=== PATIENT | female | born 1955 | race Caucasian/White ===

== ENCOUNTER → 2016-12-30 | Outpatient (CLI) | payer OTHER ==
[~2016-12-30] MED LIST: ASPCH81X PO; BND25 PO; FLUO20CA35 PO; GLCPUNK PO; INSULIN PUMP; LANS30CA41 PO; LSNUNK PO; PRM/625 PO; SYN125 PO; ZCRUNK PO
[2016-12-30 14:45] LABS: URINE APPEARANCE CLEAR (CLEAR); URINE BILIRUBIN NEG (NEG); URINE COLOR YELLOW; URINE NITRITE NEG (NEG); UROBILINOGEN NEG (NEG); ZZUR CULT IF INDIC CLEAN CATCH NO
[2016-12-30 15:00] LABS: MANUAL MICROSCOPIC REQUIRED? NO; REVIEW REQ? NO
== END | disposition home or self-care (01) ==
LOC: C.LAB1850 12:56
PROVIDERS: ATTEND Nurse Practitioner Family
DX: R30.0 Dysuria (principal)

== ENCOUNTER → 2017-02-27 | Outpatient (CLI) | payer OTHER ==
[2017-02-27 13:12] LABS: ESTIMATED AVERAGE GLUCOSE 183 mg/dl; HA1C FLAG Normal (Normal)
[2017-02-27 13:23] LABS: CHOLESTEROL/HDL RATIO 2.3; THYROID STIMULATING HORMONE 0.855 uIu/ml (0.300-4.500)
[2017-02-27 13:26] LABS: BASO % 0.5 %; BASO ABS # 0.06 K/uL (0-0.2); COMPLETE YES; EOS % 2.4 %; HEMATOCRIT 38.4 % (37-47); IG% 0.4 %; LYMPH % 27.1 %; LYMPH ABS # 2.99 K/uL (1.2-3.4); MEAN CELL VOLUME 91.2 fL (80-100); MEAN CORPUSCULAR HEMOGLOBIN 29.2 pg (25-34); MEAN PLATELET VOLUME 11.1 fL (7.4-10.4); MONO % 7.5 %; NEUT % 62.1 %; PLATELET COUNT 459 K/uL (130-400); RED BLOOD COUNT 4.21 M/uL (4.2-5.4); WHITE BLOOD COUNT 11.03 K/uL (4.8-10.8)
[2017-02-27 15:22] LABS: RATIO 4.2 mcg/mg (0-30.0)
== END | disposition home or self-care (01) ==
LOC: C.LAB1850 10:30
PROVIDERS: ATTEND Nurse Practitioner Family
DX: D72.829 Elevated white blood cell count, unspecified (principal); E10.9 Type 1 diabetes mellitus without complications

== ENCOUNTER 2022-01-21 19:35 | Inpatient (IN) ==
[2022-01-21] MEDS ORDERED: SODIUM CHLORIDE 0.9% 1000ML 1,000 ML IV ONE ×5 (19:39→22:22)
[2022-01-21 20:02] LABS: Hematocrit (blood only) 50.2 % (37-47); Hemoglobin 15.9 g/dL (12.0-16.0); Mean Corpuscular Hemoglobin 30.6 pg (25-34); Mean Corpuscular Hgb Conc 31.7 g/dL (32-36); Mean Corpuscular Volume 96.5 fL (80-100); Mean Platelet Volume 11.7 fL (7.4-10.4); Platelet Count 407 K/uL (130-400); RDW Coefficient of Variation 14.6 % (11.5-14.5); RDW Standard Deviation 51.5 fL (36.4-46.3); White Blood Count 25.91 K/uL (4.8-10.8)
--- NOTE | 2022-01-21 20:02 | Emergency Department Note ---
Impression & Plan DKA (diabetic ketoacidosis), Headache, Acute hyperkalemia, JENNY (acute kidney injury) ED Provider Note NAME: KENZIE BAUM AGE: 66 SEX: F : 1955 ARRIVES VIA: Ambulance INFORMANT: Patient, EMS ED PROVIDER(S): Demetris Shafer DO CHIEF COMPLAINT: Generalized illness HPI: The patient is a 66-year-old female who presented to the emergency department for an evaluation of generalized illness. The patient called 911 because she was not feeling well. Upon arrival the patient was found to be tachypneic and extremis. The patient was found to have an elevated blood pressure. She was complaining of a headache which she states started earlier in the day. She denies having any trauma or fever. She denies having any chest p ain. She denies having any abdominal pain but has had episodes of nausea. She denies having any swelling in her lower extremities. She states that she has been compliant with her outpatient medications but states her blood sugar has been elevated. The prehospital personnel also noted the patient's blood sugar was very elevated. She complains of headache which is very severe. She did not take any medications for the headache. She states she has noticed urinary frequency. She denies having any back pain. ROS: See above HPI for pertinent positives & negatives. A total of 10 systems reviewed and were otherwise negative. PAST MEDICAL HISTORY: See Below PAST SURGICAL HISTORY: See Below FAMILY HISTORY: See Below SOCIAL HISTORY: See Below HOME MEDICATIONS: See Below ALLERGIES: See Below VITALS: See Below PHYSICAL EXAMINATION: GENERAL: The patient is awake and alert. She is somewhat anxious appearing. EYES: The conjunctivae are clear. The pupils are round and reactive. EARS, NOSE, MOUTH AND THROAT: The nose is without any evidence of any deformity. Mucous membranes are dry. NECK: The neck is nontender and supple. RESPIRATORY: Tachypnea was noted with conversational dyspnea. There were no abnormal lung sounds noted. There is no rales rhonchi or wheezing. CARDIOVASCULAR: Tachycardic rate with regular rhythm was noted. There is no definite murmur. GASTROINTESTINAL: The abdomen is soft. Abdomen is nontender. MUSCULOSKELETAL/EXTREMITIES: There is no evidence of gross deformity full range of motion is noted in the hips and shoulders. SKIN: There is no obvious evidence of any rash. There are no petechiae, pallor or cyanosis noted. NEUROLOGIC: Patient is awake alert and oriented x3 strength is symmetric patellar reflexes are 2+ bilaterally MEDICAL DECISION MAKING: The patient is a 66-year-old female who presented to the emergency department for an evaluation of difficulty breathing. The patient was found to be in DKA. I discussed the patient's laboratory and radiographic studies with her. [facility] The patient was treated with multiple IV fluid boluses as well as IV insulin using the DKA protocol. The patient also requested medication for headache. She was not found to have any acute abnormality on CT of the head. At this time the patient seems to be improving clinically. She would likely require further management in the ICU. She was [facility] in [facility] Patient was also treated with empiric antibiotics. Triage Nursing notes reviewed. Prior medical records reviewed Vital Signs: reviewed and remarkable for elevated blood pressure tachycardia and tachypnea. Differential diagnosis: Infection, dehydration, metabolic abnormality, hypo/hyperglycemia, electrolyte disturbance, anemia, hypoxia, cardiac sources, intracerebral event, toxicologic, neurologic, as well as other pathologies. ER treatment provided: See below Diagnostics interpreted by me: ECG: EKG was obtained in the emergency department. My interpretation is sinus tachycardia at 134 bpm. No PVCs were noted. Poor wave progression was noted. Inferior Q waves were also noted. This was compared to a tracing from July 30, 2000 Alexis. There is an increase in the rate however no other specific changes were noted. Cardiac Monitoring: An order was placed for continuous cardiac monitoring. The monitor shows a rate of with 132 bpm with sinus rhythm. Laboratory studies: As stated above and show below. Imaging studies: See below Consultation(s): I discussed this case with Dr. Blanca is [facility] ED COURSE: Procedures: none Critical Care: I have personally spent greater than 45 minutes of critical care time in the direct management of this patient. This includes bedside care, interpretation of diagnostic studies, and testing, discussion with consultants, patient, and family members, and other required patient management activities. This 45 minutes is in excess of all separately billable procedures. Past Med/Surg History Surgical History History of cholecystectomy History of hysterectomy History of shoulder surgery History of tonsillectomy Family History Grandmother (Maternal) Diabetes Mother Hypertension Heart disease Grandmother (Paternal) Diabetes Social History Smoking Status: Unknown if ever smoked Hx Alcohol Use: No Preferred Language: Spanish Allergies Allergies Allergy/AdvReac Type Severity Reaction Status Date / Time acetaminophen Allergy Severe Difficulty Verified 01/21/22 21:10 Breathing dextromethorphan Allergy Severe Difficulty Verified 01/21/22 21:10 Breathing doxylamine Allergy Severe Difficulty Verified 01/21/22 21:10 Breathing pseudoephedrine Allergy Severe Difficulty Verified 01/21/22 21:10 Breathing glyburide Allergy Intermediate RASH Verified 01/21/22 21:10 tetanus toxoid, adsorbed Allergy Intermediate painful Verified 01/21/22 21:10 joints Ethanol Allergy Severe Difficulty Uncoded 01/21/22 21:10 Breathing Home Meds Home Medications Medication Instructions Recorded Confirmed aspirin 81 mg tablet,delayed 81 mg PO DAILY 01/29/21 01/21/22 release (Adult Low Dose Aspirin) diphenhydramine HCl 25 mg capsule 25 mg PO HS PRN 01/29/21 01/21/22 fluocinonide 0.05 % topical 1 applic TOPICAL DAILY ml 01/29/21 01/21/22 solution fluoxetine 40 mg capsule 40 mg PO DAILY 01/29/21 01/21/22 hydrochlorothiazide 12.5 mg tablet 12.5 mg PO DAILY 01/29/21 01/21/22 levothyroxine 125 mcg tablet 125 mcg PO DAILY 01/29/21 01/21/22 lisinopril 5 mg tablet 5 mg PO DAILY 01/29/21 01/21/22 lansoprazole 30 mg capsule,delayed 30 mg PO DAILY PRN 06/03/21 01/21/22 release zolpidem 10 mg tablet 10 mg PO HS tab 06/03/21 01/21/22 insulin aspart U-100 100 unit/mL 0 unit CONTINUOUS SUBCUTANEOUS 01/21/22 01/21/22 subcutaneous solution (Novolog INFUSION DAILY U-100 Insulin aspart) Previous Rx's Medication Instructions Recorded simvastatin 20 mg tablet 20 mg PO DAILY #90 tab 03/22/21 Dexcom G6 Sludge Control Attendant (blood-glucose #9 ea NS 03/27/21 meter,continuous) Dexcom G6 Transmitter #1 ea NS 03/27/21 (blood-glucose transmitter) OneTouch Ultra Test (blood sugar #400 ea NS 07/10/21 diagnostic) Results & Data (ED) Vital Signs Vital Signs - 24 hr 01/21/22 19:54 01/21/22 20:04 01/21/22 20:09 Pulse Rate 136 H 135 H Pulse Rate from SpO2 Sensor 135 H Pulse Rhythm Regular Respiratory Rate 32 H 27 H Respiratory Effort / Characteristics Accessory Muscle Use Labored Short of Breath Accessory Muscle Use Labored Short of Breath Respiratory Depth Shallow Shallow Respiratory Pattern Rapid/Shallow Tachypnea Rapid/Shallow Tachypnea Blood Pressure 198/109 H 180/107 H Blood Pressure Mean 138 131 Pulse Oximetry 99 99 Oxygen Delivery Method Room Air Nasal Cannula Room Air Room Air 01/21/22 20:31 01/21/22 21:00 01/21/22 21:09 Pulse Rate 135 H 132 H Pulse Rate from SpO2 Sensor 133 H 133 H Pulse Rhythm Respiratory Rate 27 H 24 32 H Respiratory Effort / Characteristics Accessory Muscle Use Short of Breath Respiratory Depth Respiratory Pattern Blood Pressure 195/132 H 154/81 H Blood Pressure Mean 153 105 Pulse Oximetry 96 96 98 Oxygen Delivery Method Room Air Room Air Room Air 01/21/22 21:39 Pulse Rate Pulse Rate from SpO2 Sensor Pulse Rhythm Respiratory Rate 36 H Respiratory Effort / Characteristics Accessory Muscle Use Labored Short of Breath Respiratory Depth Respiratory Pattern Blood Pressure Blood Pressure Mean Pulse Oximetry 97 Oxygen Delivery Method Room Air Home Medications Current Medication List: was personally reviewed by me Laboratory Data Attestation: I reviewed the patient's lab results. Result diagrams: 01/21/22 19:48 01/21/22 19:48 Lab Results 01/21/22 01/21/22 01/21/22 Range/Units 19:39 19:42 19:48 WBC (4.8-10.8) K/uL RBC (4.2-5.4) M/uL Hgb (12.0-16.0) g/dL Hct (37-47) % MCV (80-100) fL MCH (25-34) pg MCHC (32-36) g/dL RDW Std Deviation (36.4-46.3) fL RDW Coeff of Rossi (11.5-14.5) % Plt Count (130-400) K/uL MPV (7.4-10.4) fL Immature Gran % (Auto) % Neut % (Auto) % Lymph % (Auto) % [place] % (Auto) % Eos % (Auto) % Baso % (Auto) % Neut # (Auto) (1.4-6.5) K/uL Lymph # (Auto) (1.2-3.4) K/uL [place] # (Auto) (0.11-0.59) K/uL Eos # (Auto) (0-0.5) K/uL Baso # (Auto) (0-0.2) K/uL Immature Gran # (Auto) (0.00-0.02) K/uL Echinocytes ESR (0-30) mm/hr PT (9.0-12.0) Seconds INR (0.9-1.1) APTT (21.0-31.0) Seconds PTT Ratio ABG pH (7.35-7.45) ABG pCO2 (35-46) mmHg ABG pO2 (80-95) mmHg ABG HCO3 (19-24) mmol/L ABG O2 Saturation (90-95) % ABG Base Excess (-9-1.8) mEq/L Saravanan Test (Pos) VBG pH VBG pCO2 VBG pO2 VBG HCO3 VBG O2 Saturation VBG Base Excess Barometric Pressure Oxygen Given Sodium (136-145) mmol/L Potassium (3.5-5.1) mmol/L Chloride (98-107) mmol/L Carbon Dioxide (21-32) mmol/L Anion Gap (3-11) BUN (6-23) mg/dl Creatinine (0.6-1.2) mg/dl Est Cr Clr Drug Dosing ml/min Est GFR ( Amer) ml/min Est GFR (Non-Af Amer) ml/min BUN/Creatinine Ratio (10-20) Glucose (70-99(Fasting)) mg/dl POC Glucose > 600 H* (70-99) mg/dl Osmolality 331 H (280-300) mOsm/kg Lactate (0.4-2.0) mmol/L Calcium (8.5-10.1) mg/dl Magnesium (1.7-2.4) mg/dl Total Bilirubin (0.2-1.0) mg/dl AST (13-39) U/L ALT (7-52) U/L Alkaline Phosphatase (34-104) U/L Troponin I High Sens 15.8 H (0-14) pg/ml C-Reactive Protein (0-0.5) mg/dl Total Protein (6.0-8.3) gm/dl Albumin (3.4-5.0) gm/dl Globulin (2.5-4.0) gm/dl Albumin/Globulin Ratio (0.9-2) Procalcitonin (0-0.5) ng/ml TSH (0.300-4.500) uIu/ml Urine Color Urine Appearance (Clear) Urine pH (4.5-7.5) Ur Specific [place] (1.000-1.030) Urine Protein (Negative) Urine Glucose (UA) (Negative) Urine Ketones (Negative) Urine Blood (Negative) Urine Nitrite (Negative) Urine Bilirubin (Negative) Urine Urobilinogen (Negative) Ur Leukocyte Esterase (Negative) Urine WBC (Auto) (0-5) /hpf Urine RBC (Auto) (0-4) /hpf U Hyaline Cast (Auto) (0-5) /lpf U Epithel Cells (Auto) (0-5) /lpf Urine Bacteria (Auto) (Negative) 01/21/22 01/21/22 01/21/22 Range/Units 19:48 19:48 19:48 WBC 25.91 H (4.8-10.8) K/uL RBC 5.20 (4.2-5.4) M/uL Hgb 15.9 (12.0-16.0) g/dL Hct 50.2 H (37-47) % MCV 96.5 (80-100) fL MCH 30.6 (25-34) pg MCHC 31.7 L (32-36) g/dL RDW Std Deviation 51.5 H (36.4-46.3) fL RDW Coeff of Rossi 14.6 H (11.5-14.5) % Plt Count 407 H (130-400) K/uL MPV 11.7 H (7.4-10.4) fL Immature Gran % (Auto) 1.7 % Neut % (Auto) 80.1 % Lymph % (Auto) 10.7 % [place]corn % (Auto) 7.3 % Eos % (Auto) 0.0 % Baso % (Auto) 0.2 % Neut # (Auto) 20.77 H (1.4-6.5) K/uL Lymph # (Auto) 2.77 (1.2-3.4) K/uL [place] # (Auto) 1.88 H (0.11-0.59) K/uL Eos # (Auto) 0.00 (0-0.5) K/uL Baso # (Auto) 0.04 (0-0.2) K/uL Immature Gran # (Auto) 0.45 H (0.00-0.02) K/uL Echinocytes 1+ ESR 54 H (0-30) mm/hr PT 11.9 (9.0-12.0) Seconds INR 1.1 (0.9-1.1) APTT 36.8 H (21.0-31.0) Seconds PTT Ratio 1.3 ABG pH (7.35-7.45) ABG pCO2 (35-46) mmHg ABG pO2 (80-95) mmHg ABG HCO3 (19-24) mmol/L ABG O2 Saturation (90-95) % ABG Base Excess (-9-1.8) mEq/L Saravanan Test (Pos) VBG pH VBG pCO2 VBG pO2 VBG HCO3 VBG O2 Saturation VBG Base Excess Barometric Pressure Oxygen Given Sodium (136-145) mmol/L Potassium (3.5-5.1) mmol/L Chloride (98-107) mmol/L Carbon Dioxide (21-32) mmol/L Anion Gap (3-11) BUN (6-23) mg/dl Creatinine (0.6-1.2) mg/dl Est Cr Clr Drug Dosing ml/min Est GFR ( Amer) ml/min Est GFR (Non-Af Amer) ml/min BUN/Creatinine Ratio (10-20) Glucose (70-99(Fasting)) mg/dl POC Glucose (70-99) mg/dl Osmolality (280-300) mOsm/kg Lactate (0.4-2.0) mmol/L Calcium (8.5-10.1) mg/dl Magnesium (1.7-2.4) mg/dl Total Bilirubin (0.2-1.0) mg/dl AST (13-39) U/L ALT (7-52) U/L Alkaline Phosphatase (34-104) U/L Troponin I High Sens (0-14) pg/ml C-Reactive Protein (0-0.5) mg/dl Total Protein (6.0-8.3) gm/dl Albumin (3.4-5.0) gm/dl Globulin (2.5-4.0) gm/dl Albumin/Globulin Ratio (0.9-2) Procalcitonin (0-0.5) ng/ml TSH (0.300-4.500) uIu/ml Urine Color Urine Appearance (Clear) Urine pH (4.5-7.5) Ur Specific [place] (1.000-1.030) Urine Protein (Negative) Urine Glucose (UA) (Negative) Urine Ketones (Negative) Urine Blood (Negative) Urine Nitrite (Negative) Urine Bilirubin (Negative) Urine Urobilinogen (Negative) Ur Leukocyte Esterase (Negative) Urine WBC (Auto) (0-5) /hpf Urine RBC (Auto) (0-4) /hpf U Hyaline Cast (Auto) (0-5) /lpf U Epithel Cells (Auto) (0-5) /lpf Urine Bacteria (Auto) (Negative) 01/21/22 01/21/22 01/21/22 Range/Units 19:48 19:48 19:48 WBC (4.8-10.8) K/uL RBC (4.2-5.4) M/uL Hgb (12.0-16.0) g/dL Hct (37-47) % MCV (80-100) fL MCH (25-34) pg MCHC (32-36) g/dL RDW Std Deviation (36.4-46.3) fL RDW Coeff of Rossi (11.5-14.5) % Plt Count (130-400) K/uL MPV (7.4-10.4) fL Immature Gran % (Auto) % Neut % (Auto) % Lymph % (Auto) % [place] % (Auto) % Eos % (Auto) % Baso % (Auto) % Neut # (Auto) (1.4-6.5) K/uL Lymph # (Auto) (1.2-3.4) K/uL [place] # (Auto) (0.11-0.59) K/uL Eos # (Auto) (0-0.5) K/uL Baso # (Auto) (0-0.2) K/uL Immature Gran # (Auto) (0.00-0.02) K/uL Echinocytes ESR (0-30) mm/hr PT (9.0-12.0) Seconds INR (0.9-1.1) APTT (21.0-31.0) Seconds PTT Ratio ABG pH (7.35-7.45) ABG pCO2 (35-46) mmHg ABG pO2 (80-95) mmHg ABG HCO3 (19-24) mmol/L ABG O2 Saturation (90-95) % ABG Base Excess (-9-1.8) mEq/L Saravanan Test (Pos) VBG pH VBG pCO2 VBG pO2 VBG HCO3 VBG O2 Saturation VBG Base Excess Barometric Pressure Oxygen Given Sodium 123 L (136-145) mmol/L Potassium 5.5 H (3.5-5.1) mmol/L Chloride 90 L (98-107) mmol/L Carbon Dioxide 3 L* (21-32) mmol/L Anion Gap 30 H (3-11) BUN 30 H (6-23) mg/dl Creatinine 1.59 H (0.6-1.2) mg/dl Est Cr Clr Drug Dosing 39.4 ml/min Est GFR ( Amer) 38.8 ml/min Est GFR (Non-Af Amer) 33.5 ml/min BUN/Creatinine Ratio 18.9 (10-20) Glucose 704 H* (70-99(Fasting)) mg/dl POC Glucose (70-99) mg/dl Osmolality (280-300) mOsm/kg Lactate (0.4-2.0) mmol/L Calcium 9.1 (8.5-10.1) mg/dl Magnesium 2.2 (1.7-2.4) mg/dl Total Bilirubin 0.6 (0.2-1.0) mg/dl AST 11 L (13-39) U/L ALT 11 (7-52) U/L Alkaline Phosphatase 150 H (34-104) U/L Troponin I High Sens (0-14) pg/ml C-Reactive Protein 2.13 H (0-0.5) mg/dl Total Protein 8.1 (6.0-8.3) gm/dl Albumin 4.7 (3.4-5.0) gm/dl Globulin 3.4 (2.5-4.0) gm/dl Albumin/Globulin Ratio 1.4 (0.9-2) Procalcitonin 0.28 (0-0.5) ng/ml TSH 1.263 (0.300-4.500) uIu/ml Urine Color Urine Appearance (Clear) Urine pH (4.5-7.5) Ur Specific [place] (1.000-1.030) Urine Protein (Negative) Urine Glucose (UA) (Negative) Urine Ketones (Negative) Urine Blood (Negative) Urine Nitrite (Negative) Urine Bilirubin (Negative) Urine Urobilinogen (Negative) Ur Leukocyte Esterase (Negative) Urine WBC (Auto) (0-5) /hpf Urine RBC (Auto) (0-4) /hpf U Hyaline Cast (Auto) (0-5) /lpf U Epithel Cells (Auto) (0-5) /lpf Urine Bacteria (Auto) (Negative) 01/21/22 01/21/22 01/21/22 Range/Units 20:06 20:06 20:06 WBC (4.8-10.8) K/uL RBC (4.2-5.4) M/uL Hgb (12.0-16.0) g/dL Hct (37-47) % MCV (80-100) fL MCH (25-34) pg MCHC (32-36) g/dL RDW Std Deviation (36.4-46.3) fL RDW Coeff of Rossi (11.5-14.5) % Plt Count (130-400) K/uL MPV (7.4-10.4) fL Immature Gran % (Auto) % Neut % (Auto) % Lymph % (Auto) % [place] % (Auto) % Eos % (Auto) % Baso % (Auto) % Neut # (Auto) (1.4-6.5) K/uL Lymph # (Auto) (1.2-3.4) K/uL [place] # (Auto) (0.11-0.59) K/uL Eos # (Auto) (0-0.5) K/uL Baso # (Auto) (0-0.2) K/uL Immature Gran # (Auto) (0.00-0.02) K/uL Echinocytes ESR (0-30) mm/hr PT (9.0-12.0) Seconds INR (0.9-1.1) APTT (21.0-31.0) Seconds PTT Ratio ABG pH 7.05 L* (7.35-7.45) ABG pCO2 14 L (35-46) mmHg ABG pO2 123 H (80-95) mmHg ABG HCO3 4 L (19-24) mmol/L ABG O2 Saturation 97.7 H (90-95) % ABG Base Excess -24.7 L (-9-1.8) mEq/L Saravanan Test Pos (Pos) VBG pH Cancelled VBG pCO2 Cancelled VBG pO2 Cancelled VBG HCO3 Cancelled VBG O2 Saturation Cancelled VBG Base Excess Cancelled Barometric Pressure Cancelled 738.3 Oxygen Given ROOM AIR Sodium (136-145) mmol/L Potassium (3.5-5.1) mmol/L Chloride (98-107) mmol/L Carbon Dioxide (21-32) mmol/L Anion Gap (3-11) BUN (6-23) mg/dl Creatinine (0.6-1.2) mg/dl Est Cr Clr Drug Dosing ml/min Est GFR ( Amer) ml/min Est GFR (Non-Af Amer) ml/min BUN/Creatinine Ratio (10-20) Glucose (70-99(Fasting)) mg/dl POC Glucose (70-99) mg/dl Osmolality (280-300) mOsm/kg Lactate 2.4 H* (0.4-2.0) mmol/L Calcium (8.5-10.1) mg/dl Magnesium (1.7-2.4) mg/dl Total Bilirubin (0.2-1.0) mg/dl AST (13-39) U/L ALT (7-52) U/L Alkaline Phosphatase (34-104) U/L Troponin I High Sens (0-14) pg/ml C-Reactive Protein (0-0.5) mg/dl Total Protein (6.0-8.3) gm/dl Albumin (3.4-5.0) gm/dl Globulin (2.5-4.0) gm/dl Albumin/Globulin Ratio (0.9-2) Procalcitonin (0-0.5) ng/ml TSH (0.300-4.500) uIu/ml Urine Color Urine Appearance (Clear) Urine pH (4.5-7.5) Ur Specific [place] (1.000-1.030) Urine Protein (Negative) Urine Glucose (UA) (Negative) Urine Ketones (Negative) Urine Blood (Negative) Urine Nitrite (Negative) Urine Bilirubin (Negative) Urine Urobilinogen (Negative) Ur Leukocyte Esterase (Negative) Urine WBC (Auto) (0-5) /hpf Urine RBC (Auto) (0-4) /hpf U Hyaline Cast (Auto) (0-5) /lpf U Epithel Cells (Auto) (0-5) /lpf Urine Bacteria (Auto) (Negative) 01/21/22 01/21/22 01/21/22 Range/Units 20:41 21:04 21:52 WBC (4.8-10.8) K/uL RBC (4.2-5.4) M/uL Hgb (12.0-16.0) g/dL Hct (37-47) % MCV (80-100) fL MCH (25-34) pg MCHC (32-36) g/dL RDW Std Deviation (36.4-46.3) fL RDW Coeff of Rossi (11.5-14.5) % Plt Count (130-400) K/uL MPV (7.4-10.4) fL Immature Gran % (Auto) % Neut % (Auto) % Lymph % (Auto) % [place] % (Auto) % Eos % (Auto) % Baso % (Auto) % Neut # (Auto) (1.4-6.5) K/uL Lymph # (Auto) (1.2-3.4) K/uL [place] # (Auto) (0.11-0.59) K/uL Eos # (Auto) (0-0.5) K/uL Baso # (Auto) (0-0.2) K/uL Immature Gran # (Auto) (0.00-0.02) K/uL Echinocytes ESR (0-30) mm/hr PT (9.0-12.0) Seconds INR (0.9-1.1) APTT (21.0-31.0) Seconds PTT Ratio ABG pH (7.35-7.45) ABG pCO2 (35-46) mmHg ABG pO2 (80-95) mmHg ABG HCO3 (19-24) mmol/L ABG O2 Saturation (90-95) % ABG Base Excess (-9-1.8) mEq/L Saravanan Test (Pos) VBG pH VBG pCO2 VBG pO2 VBG HCO3 VBG O2 Saturation VBG Base Excess Barometric Pressure Oxygen Given Sodium (136-145) mmol/L Potassium (3.5-5.1) mmol/L Chloride (98-107) mmol/L Carbon Dioxide (21-32) mmol/L Anion Gap (3-11) BUN (6-23) mg/dl Creatinine (0.6-1.2) mg/dl Est Cr Clr Drug Dosing ml/min Est GFR ( Amer) ml/min Est GFR (Non-Af Amer) ml/min BUN/Creatinine Ratio (10-20) Glucose (70-99(Fasting)) mg/dl POC Glucose > 600 H* > 600 H* (70-99) mg/dl Osmolality (280-300) mOsm/kg Lactate (0.4-2.0) mmol/L Calcium (8.5-10.1) mg/dl Magnesium (1.7-2.4) mg/dl Total Bilirubin (0.2-1.0) mg/dl AST (13-39) U/L ALT (7-52) U/L Alkaline Phosphatase (34-104) U/L Troponin I High Sens (0-14) pg/ml C-Reactive Protein (0-0.5) mg/dl Total Protein (6.0-8.3) gm/dl Albumin (3.4-5.0) gm/dl Globulin (2.5-4.0) gm/dl Albumin/Globulin Ratio (0.9-2) Procalcitonin (0-0.5) ng/ml TSH (0.300-4.500) uIu/ml Urine Color Yellow Urine Appearance Clear (Clear) Urine pH 5.0 (4.5-7.5) Ur Specific [place] 1.024 (1.000-1.030) Urine Protein 1+ H (Negative) Urine Glucose (UA) 3+ H (Negative) Urine Ketones 4+ H (Negative) Urine Blood 2+ H (Negative) Urine Nitrite Negative (Negative) Urine Bilirubin Negative (Negative) Urine Urobilinogen Negative (Negative) Ur Leukocyte Esterase Negative (Negative) Urine WBC (Auto) 0 (0-5) /hpf Urine RBC (Auto) 0-4 (0-4) /hpf U Hyaline Cast (Auto) 1-5 (0-5) /lpf U Epithel Cells (Auto) 5-10 H (0-5) /lpf Urine Bacteria (Auto) Negative (Negative) Administered Medications Insulin Human Regular 250 (units/ Sodium Chloride) 250 mls @ 10 mls/hr IV .Q24H [facility]; Protocol Stop: 02/20/22 20:29 Last Admin: 01/21/22 21:28 Dose: 10 units/hr, 10 mls/hr Documented by: [id number] Cosigned by: [id number] Discontinued Medications Amlodipine Besylate (Amlodipine Besylate 5 Mg Tab) 2.5 mg PO NOW ONE Stop: 01/21/22 21:21 Last Admin: 01/21/22 22:20 Dose: 2.5 mg Documented by: [id number] Fentanyl Citrate (Fentanyl Citrate 100 Mcg/2 Ml Vial) 100 mcg IV NOW STA Stop: 01/21/22 20:26 Last Admin: 01/21/22 20:31 Dose: 100 mcg Documented by: [id number] Sodium Chloride (Nss 1000ml) 1,000 mls @ 999 mls/hr IV .Q1H1M ONE Stop: 01/21/22 20:39 Last Infusion: 01/21/22 21:03 Dose: 0 mls/hr Documented by: [id number] Admin: 01/21/22 20:01 Dose: 999 mls/hr Documented by: [id number] Sodium Chloride (Nss 1000ml) 1,000 mls @ 999 mls/hr IV .Q1H1M ONE Stop: 01/21/22 20:42 Last Infusion: 01/21/22 21:03 Dose: 0 mls/hr Documented by: [id number] Admin: 01/21/22 20:01 Dose: 999 mls/hr Documented by: [id number] Piperacillin Sod/Tazobactam Sod (Zosyn) 4.5 gm in 120 mls @ 240 mls/hr IV NOW ONE Stop: 01/21/22 20:57 Last Admin: 01/21/22 21:29 Dose: 240 mls/hr Documented by: [id number] Sodium Chloride (Nss 1000ml) 1,000 mls @ 200 mls/hr IV .Q5H ONE Stop: 01/22/22 02:14 Last Admin: 01/21/22 22:30 Dose: Not Given Documented by: [id number] Sodium Chloride (Nss 1000ml) 1,000 mls @ 999 mls/hr IV .Q1H1M ONE Stop: 01/21/22 22:17 Last Admin: 01/21/22 22:21 Dose: 999 mls/hr Documented by: [id number] Insulin Human Regular (Novolin-R Bolus From Bag) 10 units IV 2100 ONE Stop: 01/21/22 21:01 Last Admin: 01/21/22 21:29 Dose: 10 units Documented by: [id number] Cosigned by: [id number] Labetalol HCl (Labetalol Hcl Iv 5 Mg/Ml 20ml) 10 mg IV NOW STA Stop: 01/21/22 21:08 Last Admin: 01/21/22 22:30 Dose: Not Given Documented by: [id number] Metoprolol Tartrate (Metoprolol Tartrate 1 Mg/Ml Vial) 2.5 mg IV NOW STA Stop: 01/21/22 21:22 Last Admin: 01/21/22 21:45 Dose: 2.5 mg Documented by: [id number] Miscellaneous (Stat Insulin Drip) 1 ea N/A NOW STA Stop: 01/21/22 20:29 Last Admin: 01/21/22 21:39 Dose: Not Given Documented by: [id number] Ondansetron HCl (Ondansetron Inj 2 Mg/Ml 2 Ml Vial) 4 mg IV NOW STA Stop: 01/21/22 20:26 Last Admin: 01/21/22 20:31 Dose: 4 mg Documented by: [id number] Sodium Bicarbonate (Sodium Bicarb 8.4% Inj 50 Meq/50 Ml Syr) 50 meq IV NOW STA Stop: 01/21/22 21:19 Last Admin: 01/21/22 21:45 Dose: 50 meq Documented by: [id number] Imaging Data Radiologist's Impression: Chest X-Ray 01/21/22 19:39 XR chest 1V portable HISTORY: 66 years-old Female SEPSIS acute sepsis COMPARISON: CT abdomen and pelvis 04/28/2012 TECHNIQUE: Portable AP view of the chest FINDINGS: Cardiomediastinal and hilar silhouettes are within normal limits. No pneumothorax, pleural effusion, airspace consolidation or overt pulmonary edema. Bones of the chest appear grossly intact. IMPRESSION: No acute process. ACT 112: Negative or not required by law. The above report was generated using voice recognition software. It may contain grammatical, syntax or spelling errors. Electronically signed by: Joaquin Arthur M.D. 01/21/2022 8:[address] 01/21/22 20:25 CT head/brain wo con CLINICAL HISTORY: 66 years-old Female with YANES, dka. Acute headache TECHNIQUE: Multiple axial CT images of the head were obtained without contrast. A dose lowering technique was utilized adhering to the principles of ALARA. CT DOSE: 1311.06 mGy.cm COMPARISON: None. FINDINGS: Motion degraded exam. The study was then repeated. Mild involutional changes. White matter hypodensities may reflect chronic microvascular ischemic disease. No acute intracranial hemorrhage, midline shift, intracranial mass, hydrocephalus, territorial ischemia or abnormal extra-axial collection. The calvarium is intact. The paranasal sinuses, mastoid air cells, and middle ear cavities are clear. IMPRESSION: Motion degraded exam. No acute intracranial abnormality. ACT 112: Negative or not required by law. The above report was generated using voice recognition software. It may contain grammatical, syntax or spelling errors. Electronically signed by: Joaquin Arthur M.D. 01/21/2022 9:02 PM Discharge Plan Visit Data Chief Complaint: Respiratory Distress Stated Complaint: RESPIRATORY DISTRESS/POSSIBLE DKA ED Provider: Demetris Shafer Discharge Problem: DKA (diabetic ketoacidosis), Headache, Acute hyperkalemia, JENNY (acute kidney injury) Patient Disposition: Being Evaluated by Hospitalist Forms Stand Alone Forms: [employer] Prescriptions Prescriptions: No Action (DME) Dexcom G6 Sludge Control Attendant Misc See Rx Instructions .ROUTE .MEDSUPPLY Qty: 9 RF: 4 (DME) Dexcom G6 Transmitter Device See Rx Instructions .ROUTE .MEDSUPPLY Qty: 1 RF: 3 (DME) OneTouch Ultra Test Strip See Rx Instructions .Route Qty: 400 RF: 3 simvastatin 20 mg tablet 20 mg PO DAILY Qty: 90 RF: 3 aspirin [Adult Low Dose Aspirin] 81 mg tablet,delayed release (DR/EC) 81 mg PO DAILY RF: 0 diphenhydramine HCl 25 mg capsule 25 mg PO HS PRN (Reason: Sleep) RF: 0 fluocinonide 0.05 % solution 1 applic topical DAILY RF: 0 fluoxetine 40 mg capsule 40 mg PO DAILY RF: 0 hydrochlorothiazide 12.5 mg tablet 12.5 mg PO DAILY RF: 0 levothyroxine 125 mcg tablet 125 mcg PO DAILY RF: 0 lisinopril 5 mg tablet 5 mg PO DAILY RF: 0 lansoprazole 30 mg capsule,delayed release(DR/EC) 30 mg PO DAILY PRN (Reason: Indigestion) RF: 0 zolpidem 10 mg tablet 10 mg PO HS RF: 0 insulin aspart U-100 [Novolog U-100 Insulin aspart] 100 unit/mL solution 0 unit continuous subcutaneous infusion DAILY RF: 0 Referrals Referrals: Oswaldo aSxena MD [Primary Care Provider] -
[2022-01-21 20:10] LABS: INR 1.1 (0.9-1.1); Partial Thromboplastin Ratio 1.3; Partial Thromboplastin Time 36.8 Seconds (21.0-31.0); Prothrombin Time 11.9 Seconds (9.0-12.0)
[2022-01-21 20:21] LABS: Albumin Globulin Ratio 1.4 (0.9-2); Albumin Level 4.7 gm/dl (3.4-5.0); BUN Creatinine Ratio 18.9 (10-20); Basophils # (auto) 0.04 K/uL (0-0.2); Basophils % (auto) 0.2 %; Bilirubin,Total 0.6 mg/dl (0.2-1.0); C Reactive Protein 2.13 mg/dl (0-0.5); Calcium 9.1 mg/dl (8.5-10.1); Creatinine Clr Calc Pharmacy 39.4 ml/min; Echinocytes 1+; Est GFR (African American) 38.8 ml/min; Est GFR (Non-African American) 33.5 ml/min; Globulin 3.4 gm/dl (2.5-4.0); Immature Granulocytes # (auto) 0.45 K/uL (0.00-0.02); Immature Granulocytes % (auto) 1.7 %; Lymphocytes # (auto) 2.77 K/uL (1.2-3.4); Lymphocytes % (auto) 10.7 %; Magnesium 2.2 mg/dl (1.7-2.4); Monocytes # (auto) 1.88 K/uL (0.11-0.59); Monocytes % (auto) 7.3 %; Neutrophils # (auto) 20.77 K/uL (1.4-6.5); Neutrophils % (auto) 80.1 %; Potassium 5.5 mmol/L (3.5-5.1); Total Protein 8.1 gm/dl (6.0-8.3)
[2022-01-21] MEDS ORDERED: ONDANSETRON INJ 2 MG/ML 2 ML VIAL IV STA (20:25)
[2022-01-21] MEDS ORDERED: fentaNYL citrate 100 MCG/2 ML VIAL IV STA (20:25)
[2022-01-21] MEDS ORDERED: CARBOHYDRATES FOR HYPOGLYCEMIA PO PRN ×2 (20:28→21:00)
[2022-01-21] MEDS ORDERED: DEXTROSE 50% 50 ML SYRINGE IV PRN ×2 (20:28→21:00)
[2022-01-21] MEDS ORDERED: DKA GOAL RANGE 150-250 mg/dl ONE (20:28)
[2022-01-21] MEDS ORDERED: PIPERACILL/TAZOBAC CONSULT ACTIVE PRN (20:28)
[2022-01-21] MEDS ORDERED: STAT INSULIN DRIP STA (20:28)
[2022-01-21] MEDS ORDERED: GLUCOSE 10 TABS/TUBE PO PRN ×2 (20:28→21:00)
[2022-01-21] MEDS ORDERED: PIPERACILLIN/TAZOBACTAM 4.5 GM/120 ML BAG IV ONE (20:28)
[2022-01-21] MEDS ORDERED: GLUCOSE 40% GEL 15 GM TUBE PO PRN ×2 (20:28→21:00)
[2022-01-21] MEDS ORDERED: GLUCAGON FOR INJ 1 MG VIAL SQ PRN (20:28)
[2022-01-21] MEDS ORDERED: INSULIN REGULAR 250 UNITS in SODIUM CHLORIDE 0.9% 247.5 ML IV SCH (20:30)
--- NOTE | 2022-01-21 20:32 | XRay Report ---
XR chest 1V portable HISTORY: 66 years-old Female SEPSIS acute sepsis COMPARISON: CT abdomen and pelvis 04/28/2012 TECHNIQUE: Portable AP view of the chest FINDINGS: Cardiomediastinal and hilar silhouettes are within normal limits. No pneumothorax, pleural effusion, airspace consolidation or overt pulmonary edema. Bones of the chest appear grossly intact. IMPRESSION: No acute process. ACT 112: Negative or not required by law. The above report was generated using voice recognition software. It may contain grammatical, syntax o r spelling errors. Electronically signed by: Joaquin Arthur M.D. 01/21/2022 8:30 PM
[2022-01-21 20:51] LABS: Base Excess ABG -24.7 mEq/L (-9-1.8); HCO3 ABG 4 mmol/L (19-24); Oxygen Saturation ABG 97.7 % (90-95); PCO2 ABG 14 mmHg (35-46); PO2 ABG 123 mmHg (80-95)
[2022-01-21 20:52] LABS: Allen Test Pos (Pos)
[2022-01-21 20:58] LABS: pH ABG 7.05 (7.35-7.45)
[2022-01-21 21:00] LABS: Appearance Urine Clear (Clear); Bacteria Urine Automated Negative (Negative); Bilirubin Urine Negative (Negative); Blood Urine 2+ (Negative); Color Urine Yellow; Glucose Urine UA 3+ (Negative); Ketones Urine 4+ (Negative); Leukocyte Esterase Urine Negative (Negative); Nitrite Urine Negative (Negative); Protein Urine 1+ (Negative); RBC Urine Automated 0-4 /hpf (0-4); Specific Gravity Urine 1.024 (1.000-1.030); Urobilinogen Urine Negative (Negative); WBC Urine Automated 0 /hpf (0-5)
[2022-01-21] MEDS ORDERED: GLUCAGON FOR INJ 1 MG VIAL IM PRN (21:00)
[2022-01-21] MEDS ORDERED: NovoLIN-R BOLUS FROM BAG IV ONE (21:00)
--- NOTE | 2022-01-21 21:04 | CT Scan Report ---
CT head/brain wo con CLINICAL HISTORY: 66 years-old Female with YANES, dka. Acute headache TECHNIQUE: Multiple axial CT images of the head were obtained without contrast. A dose lowering tech nique was utilized adhering to the principles of ALARA. CT DOSE: 1311.06 mGy.cm COMPARISON: None. FINDINGS: Motion degraded exam. The study was then repeated. Mild involutional changes. White matter hypodensit ies may reflect chronic microvascular ischemic disease. No acute intracranial hemorrhage, midline aleshia ft, intracranial mass, hydrocephalus, territorial ischemia or abnormal extra-axial collection. The calvarium is intact. The paranasal sinuses, mastoid air cells, and middle ear cavities are clear . IMPRESSION: Motion degraded exam. No acute intracranial abnormality. ACT 112: Negative or not required by law. The above report was generated using voice recognition software. It may contain grammatical, syntax o r spelling errors. Electronically signed by: Joaquin Arthur M.D. 01/21/2022 9:02 PM
[2022-01-21] MEDS ORDERED: LABETALOL HCL IV 5 MG/ML 20ML IV STA (21:07)
[2022-01-21] MEDS ORDERED: SODIUM BICARB 8.4% INJ 50 MEQ/50 ML SYR IV STA (21:18)
[2022-01-21] MEDS ORDERED: amLODIPine BESYLATE 5 MG TAB PO ONE (21:20)
[2022-01-21] MEDS ORDERED: METOPROLOL TARTRATE 1 MG/ML VIAL IV STA (21:21)
--- NOTE | 2022-01-21 22:11 | History & Physical Report ---
Date of Service January 21, 2022 Assessment & Plan (1) Hyperglycemic crisis in diabetes mellitus: Plan: DKA/HHS History DM1 on insulin pump Suboptimal control as of recent hemoglobin A1c of 8.21 August 2021 Unclear precipitant for now ARF, AGMA secondary to above Hypertensive crisis secondary to illness Troponin elevation secondary to above Shortness of breath secondary to DKA Rule out pulm embolism hypothyroidism, euthyroid as of today's TSH hyperlipidemia on statin Rx anxiety/mood disorder,, patient anxious during exam PCU IVF, IV insulin Pharmacy glycemic control consult Update hemoglobin A1c Monitor creatinine response to IVF Hold lisinopril/home diuretic until creatinine back to baseline Amlodipine for BP control while lisinopril and home diuretic on hold CT chest PE study once serum creatinine within normal limits Follow troponin, TTE if with progression. DVT prophylaxis. Heparin subcu Full code Text document was generated using [employer] voice recognition software. It may contain grammatical or spelling errors. Kindly contact undersigned for clarification of any documentation item in question. History of Present Illness Chief Complaint: Headache, high sugars, Primary Care Provider: Oswaldo Saxena MD History obtained from patient and records. Medical history significant for DM 1 on insulin pump, hypertension, hypothyroidism, hyperlipidemia, anxiety/mood disorder. Patient woke up this morning not feeling well. Blood sugar noted to be 600s which is unusual for her. Usual blood sugar at home 1 10-1 80s as per patient. No recent changes in insulin pump settings. Subsequent shortness of breath without chest pain or cough complaints. Achy headache symptoms with nausea. No abdominal pain. Patient brought to the ER for evaluation. IVF and IV insulin administered for DKA. Zosyn administered for possible infection. 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 Allergies Allergy/AdvReac Type Severity Reaction Status Date / Time acetaminophen Allergy Severe Difficulty Verified 01/21/22 21:10 Breathing dextromethorphan Allergy Severe Difficulty Verified 01/21/22 21:10 Breathing doxylamine Allergy Severe Difficulty Verified 01/21/22 21:10 Breathing pseudoephedrine Allergy Severe Difficulty Verified 01/21/22 21:10 Breathing glyburide Allergy Intermediate RASH Verified 01/21/22 21:10 tetanus toxoid, adsorbed Allergy Intermediate painful Verified 01/21/22 21:10 joints Ethanol Allergy Severe Difficulty Uncoded 01/21/22 21:10 Breathing Home Medications Medication Instructions Recorded Confirmed Type aspirin 81 mg tablet,delayed 81 mg PO DAILY 01/29/21 01/21/22 History release (Adult Low Dose Aspirin) diphenhydramine HCl 25 mg capsule 25 mg PO HS PRN 01/29/21 01/21/22 History fluocinonide 0.05 % topical 1 applic TOPICAL DAILY ml 01/29/21 01/21/22 History solution fluoxetine 40 mg capsule 40 mg PO DAILY 01/29/21 01/21/22 History hydrochlorothiazide 12.5 mg tablet 12.5 mg PO DAILY 01/29/21 01/21/22 History levothyroxine 125 mcg tablet 125 mcg PO DAILY 01/29/21 01/21/22 History lisinopril 5 mg tablet 5 mg PO DAILY 01/29/21 01/21/22 History simvastatin 20 mg tablet 20 mg PO DAILY #90 tab 03/22/21 01/21/22 Rx Dexcom G6 System Analyst (blood-glucose #9 ea NS 03/27/21 09/02/21 Rx meter,continuous) Dexcom G6 Transmitter #1 ea NS 03/27/21 09/02/21 Rx (blood-glucose transmitter) lansoprazole 30 mg capsule,delayed 30 mg PO DAILY PRN 06/03/21 01/21/22 History release zolpidem 10 mg tablet 10 mg PO HS tab 06/03/21 01/21/22 History OneTouch Ultra Test (blood sugar #400 ea NS 07/10/21 09/02/21 Rx diagnostic) insulin aspart U-100 100 unit/mL 0 unit CONTINUOUS SUBCUTANEOUS 01/21/22 01/21/22 History subcutaneous solution (Novolog INFUSION DAILY U-100 Insulin aspart) Past Med/Surg History Surgical History History of cholecystectomy History of hysterectomy History of shoulder surgery History of tonsillectomy Family History Grandmother (Maternal) Diabetes Mother Hypertension Heart disease Grandmother (Paternal) Diabetes Social History Smoking Status: Never smoker Second Hand Exposure: No; Do You Dip or Chew Tobacco: No; Hx Alcohol Use: No Hx Substance Use: No Preferred Language: Guamanian Communication Ability: Effective Order Make Up Clerk Required: No Beliefs That Will Affect Care: None Current Living Situation: Alone Other Information That Helps Us Care for You: No Feels Safe at Home: Yes Safety Concerns: Feels Safe At This Time Assistive Devices: None Review of Systems Review of Systems: As per HPI, all other systems reviewed and negative Physical Exam Physical Exam: GENERAL: Uncomfortable, respiratory distress, morbidly obese SKIN: Normal color, warm HEENT: [place] palpebral conjunctivae, no ptosis, dry buccal mucosa NECK : Supple, short neck, no tenderness CHEST : Decreased breath sounds, no tenderness HEART : Tachycardic, no obvious murmurs ABDOMEN: Some distention, nontender EXTREMITIES : Minimal LE swelling, no LE tenderness, no other conspicuous deformities noted NEUROLOGIC : Coherent, no facial asymmetry, no other gross focality Results & Data Results & Data ([facility]) Vital Signs (Past 12 Hours) Vital Signs Pulse Resp BP Pulse Ox 01/21/22 21:39 36 H 97 01/21/22 21:09 32 H 98 01/21/22 21:00 132 H 24 154/81 H 96 01/21/22 20:31 135 H 27 H 195/132 H 96 01/21/22 20:04 135 H 27 H 180/107 H 99 01/21/22 19:54 136 H 32 H 198/109 H 99 Laboratory Results Laboratory Results WBC 25.91 K/uL (4.8-10.8) H 01/21/22 19:48 RBC 5.20 M/uL (4.2-5.4) 01/21/22 19:48 Hgb 15.9 g/dL (12.0-16.0) 01/21/22 19:48 Hct 50.2 % (37-47) H 01/21/22 19:48 MCV 96.5 fL (80-100) 01/21/22 19:48 MCH 30.6 pg (25-34) 01/21/22 19:48 MCHC 31.7 g/dL (32-36) L 01/21/22 19:48 RDW Std Deviation 51.5 fL (36.4-46.3) H 01/21/22 19:48 RDW Coeff of Rossi 14.6 % (11.5-14.5) H 01/21/22 19:48 Plt Count 407 K/uL (130-400) H 01/21/22 19:48 MPV 11.7 fL (7.4-10.4) H 01/21/22 19:48 Immature Gran % (Auto) 1.7 % 01/21/22 19:48 Neut % (Auto) 80.1 % 01/21/22 19:48 Lymph % (Auto) 10.7 % 01/21/22 19:48 Mcdonough % (Auto) 7.3 % 01/21/22 19:48 Eos % (Auto) 0.0 % 01/21/22 19:48 Baso % (Auto) 0.2 % 01/21/22 19:48 Neut # (Auto) 20.77 K/uL (1.4-6.5) H 01/21/22 19:48 Lymph # (Auto) 2.77 K/uL (1.2-3.4) 01/21/22 19:48 Mcdonough # (Auto) 1.88 K/uL (0.11-0.59) H 01/21/22 19:48 Eos # (Auto) 0.00 K/uL (0-0.5) 01/21/22 19:48 Baso # (Auto) 0.04 K/uL (0-0.2) 01/21/22 19:48 Immature Gran # (Auto) 0.45 K/uL (0.00-0.02) H 01/21/22 19:48 Echinocytes 1+ 01/21/22 19:48 ESR 54 mm/hr (0-30) H 01/21/22 19:48 PT 11.9 Seconds (9.0-12.0) 01/21/22 19:48 INR 1.1 (0.9-1.1) 01/21/22 19:48 APTT 36.8 Seconds (21.0-31.0) H 01/21/22 19:48 PTT Ratio 1.3 01/21/22 19:48 ABG pH 7.05 (7.35-7.45) L* 01/21/22 20:06 ABG pCO2 14 mmHg (35-46) L 01/21/22 20:06 ABG pO2 123 mmHg (80-95) H 01/21/22 20:06 ABG HCO3 4 mmol/L (19-24) L 01/21/22 20:06 ABG O2 Saturation 97.7 % (90-95) H 01/21/22 20:06 ABG Base Excess -24.7 mEq/L (-9-1.8) L 01/21/22 20:06 Saravanan Test Pos (Pos) 01/21/22 20:06 VBG pH Cancelled 01/21/22 20:06 VBG pCO2 Cancelled 01/21/22 20:06 VBG pO2 Cancelled 01/21/22 20:06 VBG HCO3 Cancelled 01/21/22 20:06 VBG O2 Saturation Cancelled 01/21/22 20:06 VBG Base Excess Cancelled 01/21/22 20:06 Barometric Pressure 738.3 mm/Hg 01/21/22 20:06 Barometric Pressure Cancelled 01/21/22 20:06 Oxygen Given ROOM AIR 01/21/22 20:06 Sodium 123 mmol/L (136-145) L 01/21/22 19:48 Potassium 5.5 mmol/L (3.5-5.1) H 01/21/22 19:48 Chloride 90 mmol/L (98-107) L 01/21/22 19:48 Carbon Dioxide 3 mmol/L (21-32) L* 01/21/22 19:48 Anion Gap 30 (3-11) H 01/21/22 19:48 BUN 30 mg/dl (6-23) H 01/21/22 19:48 Creatinine 1.59 mg/dl (0.6-1.2) H 01/21/22 19:48 Est Cr Clr Drug Dosing 39.4 ml/min 01/21/22 19:48 Est GFR ( Amer) 38.8 ml/min 01/21/22 19:48 Est GFR (Non-Af Amer) 33.5 ml/min 01/21/22 19:48 BUN/Creatinine Ratio 18.9 (10-20) 01/21/22 19:48 Glucose 704 mg/dl (70-99(Fasting)) H* 01/21/22 19:48 POC Glucose > 600 mg/dl (70-99) H* 01/21/22 21:52 Lactate 2.4 mmol/L (0.4-2.0) H* 01/21/22 20:06 Calcium 9.1 mg/dl (8.5-10.1) 01/21/22 19:48 Magnesium 2.2 mg/dl (1.7-2.4) 01/21/22 19:48 Total Bilirubin 0.6 mg/dl (0.2-1.0) 01/21/22 19:48 AST 11 U/L (13-39) L 01/21/22 19:48 ALT 11 U/L (7-52) 01/21/22 19:48 Alkaline Phosphatase 150 U/L (34-104) H 01/21/22 19:48 Troponin I High Sens 15.8 pg/ml (0-14) H 01/21/22 19:48 C-Reactive Protein 2.13 mg/dl (0-0.5) H 01/21/22 19:48 Total Protein 8.1 gm/dl (6.0-8.3) 01/21/22 19:48 Albumin 4.7 gm/dl (3.4-5.0) 01/21/22 19:48 Globulin 3.4 gm/dl (2.5-4.0) 01/21/22 19:48 Albumin/Globulin Ratio 1.4 (0.9-2) 01/21/22 19:48 Procalcitonin 0.28 ng/ml (0-0.5) 01/21/22 19:48 TSH 1.263 uIu/ml (0.300-4.500) 01/21/22 19:48 Urine Color Yellow 01/21/22 20:41 Urine Appearance Clear (Clear) 01/21/22 20:41 Urine pH 5.0 (4.5-7.5) 01/21/22 20:41 Ur Specific [place] 1.024 (1.000-1.030) 01/21/22 20:41 Urine Protein 1+ (Negative) H 01/21/22 20:41 Urine Glucose (UA) 3+ (Negative) H 01/21/22 20:41 Urine Ketones 4+ (Negative) H 01/21/22 20:41 Urine Blood 2+ (Negative) H 01/21/22 20:41 Urine Nitrite Negative (Negative) 01/21/22 20:41 Urine Bilirubin Negative (Negative) 01/21/22 20:41 Urine Urobilinogen Negative (Negative) 01/21/22 20:41 Ur Leukocyte Esterase Negative (Negative) 01/21/22 20:41 Urine WBC (Auto) 0 /hpf (0-5) 01/21/22 20:41 Urine RBC (Auto) 0-4 /hpf (0-4) 01/21/22 20:41 U Hyaline Cast (Auto) 1-5 /lpf (0-5) 01/21/22 20:41 U Epithel Cells (Auto) 5-10 /lpf (0-5) H 01/21/22 20:41 Urine Bacteria (Auto) Negative (Negative) 01/21/22 20:41 Impressions Chest X-Ray 01/21/22 19:39 XR chest 1V portable HISTORY: 66 years-old Female SEPSIS acute sepsis COMPARISON: CT abdomen and pelvis 04/28/2012 TECHNIQUE: Portable AP view of the chest FINDINGS: Cardiomediastinal and hilar silhouettes are within normal limits. No p neumothorax, pleural effusion, airspace consolidation or overt pulmonary edema. Bones of the chest appear grossly intact. IMPRESSION: No acute process. ACT 112: Negative or not required by law. The above report was generated using voice recognition software. It may contain grammatical, syntax or spelling errors. Electronically signed by: Joaquin Arthur M.D. 01/21/2022 8:[address] 01/21/22 20:25 CT head/brain wo con CLINICAL HISTORY: 66 years-old Female with YANES, dka. Acute headache TECHNIQUE: Multiple axial CT images of the head were obtained without contrast. A dose lowering technique was utilized adhering to the principles of ALARA. CT DOSE: 1311.06 mGy.cm COMPARISON: None. FINDINGS: Motion degraded exam. The study was then repeated. Mild involutional changes. White matter hypodensities may reflect chronic microvascular ischemic disease. No acute intracranial hemorrhage, midline shift, intracranial mass, hydrocepha kaden, territorial ischemia or abnormal extra-axial collection. The calvarium is intact. The paranasal sinuses, mastoid air cells, and middle ear cavities are clear. IMPRESSION: Motion degraded exam. No acute intracranial abnormality. ACT 112: Negative or not required by law. The above report was generated using voice recognition software. It may contain grammatical, syntax or spelling errors. Electronically signed by: Joaquin Arthur M.D. 01/21/2022 9:02 PM Diagnostic Findings EKG as per my interpretation rate 135, sinus tachycardia, RAD, LPF B, inferior infarct, T wave abnormalities inferior leads
[2022-01-21] MEDS ORDERED: oxyCODONE HCL IR 5 MG TAB (IMMEDIATE RELEASE) PO STA (22:13)
[2022-01-21] MEDS ORDERED: PHARMACY GLYCEMIC MGMT CONSULT PRN (22:32)
[2022-01-21] MEDS ORDERED: PROMETHAZINE HCL 12.5 MG in SODIUM CHLORIDE 0.9% 50 ML IV PRN (22:37)
[2022-01-21] MEDS ORDERED: HYDROmorphone INJ 0.5 MG/0.5 ML SYR IV PRN (22:37)
[2022-01-21] MEDS ORDERED: LORazepam 2 MG/1 ML VIAL IV PRN (22:37)
[2022-01-21] MEDS ORDERED: MAGNESIUM SULFATE / D5W 1 GM/100 ML BAG IV ONE (22:37)
[2022-01-21] MEDS ORDERED: ZOLPIDEM TARTRATE 10 MG TAB PO PRN (23:58)
[2022-01-21] MEDS ORDERED: PANTOprazole 40 MG TAB PO PRN (23:58)
[2022-01-22] MEDS ORDERED: METOPROLOL TARTRATE 1 MG/ML VIAL IV STA (00:32)
[2022-01-22] MEDS: INSULIN ASPART PER UNIT SC SCH ×6 (00:38→21:07)
[2022-01-22 01:07] LABS: Base Excess VBG -21.7 mEq/L; Oxygen Saturation VBG 74.5 %; pH VBG 7.07 (7.36-7.41)
[2022-01-22 01:15] LABS: Troponin I High Sensitivity 46.6 pg/ml (0-14)
[2022-01-22 01:18] LABS: BUN Creatinine Ratio 21.3 (10-20); Calcium 8.2 mg/dl (8.5-10.1); Est GFR (African American) 44.9 ml/min; Est GFR (Non-African American) 38.7 ml/min; Potassium 3.7 mmol/L (3.5-5.1)
[2022-01-22] MEDS ORDERED: LACTATED RINGER'S 1,000 ML IV ONE (01:20)
[2022-01-22] MEDS ORDERED: POTASSIUM CHLORIDE PWD 20 MEQ PACK PO STA (01:21)
[2022-01-22] MEDS ORDERED: LACTATED RINGER'S 1,000 ML IV SCH ×2 (03:30→05:30)
[2022-01-22 04:34] LABS: Base Excess VBG -13.4 mEq/L; Oxygen Saturation VBG 86.9 %; pH VBG 7.26 (7.36-7.41)
[2022-01-22 04:48] LABS: Hematocrit (blood only) 43.1 % (37-47); Hemoglobin 14.7 g/dL (12.0-16.0); Mean Corpuscular Hemoglobin 30.4 pg (25-34); Mean Corpuscular Hgb Conc 34.1 g/dL (32-36); Mean Platelet Volume 11.3 fL (7.4-10.4); Platelet Count 321 K/uL (130-400); RDW Coefficient of Variation 13.9 % (11.5-14.5); RDW Standard Deviation 45.6 fL (36.4-46.3); Red Blood Count 4.84 M/uL (4.2-5.4); White Blood Count 26.02 K/uL (4.8-10.8)
[2022-01-22 04:49] LABS: Basophils # (auto) 0.03 K/uL (0-0.2); Basophils % (auto) 0.1 %; Immature Granulocytes % (auto) 1.5 %; Lymphocytes # (auto) 3.23 K/uL (1.2-3.4); Lymphocytes % (auto) 12.4 %; Monocytes # (auto) 3.14 K/uL (0.11-0.59); Monocytes % (auto) 12.1 %; Neutrophils # (auto) 19.22 K/uL (1.4-6.5); Neutrophils % (auto) 73.9 %; Partial Thromboplastin Ratio 0.9
[2022-01-22] MEDS ORDERED: D5W AND LACTATED RINGERS 1,000 ML IV SCH (05:00)
[2022-01-22 05:08] LABS: BUN Creatinine Ratio 23.5 (10-20); Calcium 8.3 mg/dl (8.5-10.1); Creatinine Clr Calc Pharmacy 55.1 ml/min; Est GFR (African American) 57.4 ml/min; Est GFR (Non-African American) 49.5 ml/min; Potassium 3.5 mmol/L (3.5-5.1)
[2022-01-22 05:11] LABS: Troponin I High Sensitivity 74.5 pg/ml (0-14)
[2022-01-22] MEDS ORDERED: POTASSIUM CHLORIDE CRTAB 20 MEQ TABCR PO STA (05:23)
[2022-01-22] MEDS ORDERED: OPTIRAY 320 125ml IV ONE (05:28)
[2022-01-22] MEDS: POTASSIUM CHLORIDE 40 MEQ in D5W AND LACTATED RINGERS 1,000 ML IV SCH ×2 (05:44→12:33)
[2022-01-22] MEDS: LEVOTHYROXINE SODIUM 125 MCG TABLET PO SCH (06:18)
[2022-01-22] MEDS: HEPARIN SOD 5,000 UNIT/0.5 ML VIAL SQ SCH ×3 (06:18→21:08)
[2022-01-22 07:09] LABS: Estimated Average Glucose 315 mg/dl; Hemoglobin A1C 12.6 % (4.5-5.6)
--- NOTE | 2022-01-22 08:06 | CT Scan Report ---
CT angio chest PE protocol CT DOSE: 701.12 mGy.cm HISTORY: 66 years-old Female with sob. Acute shortness of breath TECHNIQUE: Multiple CTA images of the chest were obtained after the intravenous administration of 92 ml Optiray. Coronal and sagittal MIPS were obtained from the axial data set and were submitted for r eview. All measurements were obtained according to NASCET criteria. A dose lowering technique was ut ilized adhering to the principles of ALARA. COMPARISON: Chest radiograph 01/21/2022 FINDINGS: CTA: And moderate cardiomegaly. No pericardial effusion. Mild coronary artery calcifications. Mild atheros clerosis of the thoracic aorta without aneurysm or dissection. Unremarkable pulmonary artery. The seg mental and subsegmental pulmonary arterial branches are suboptimally visualized secondary to contrast bolus timing and respiratory motion artifact. CT CHEST: No thyroid nodule. No lymphadenopathy. There is no pneumothorax, pleural effusion, airspace consolida tion or overt pulmonary edema. Bilateral bronchial wall thickening. Mosaic attenuation with mild grou ndglass densities. There are no suspicious pulmonary nodules or masses. The central airways appear pa tent. There is moderate mid to distal esophageal wall thickening with mild paraesophageal inflammatory stra nding. Tiny hiatal hernia. Mild fecal retention. Unremarkable soft tissues. Degenerative changes of t he shoulders and spine. IMPRESSION: 1. Cardiomegaly without pulmonary emboli. 2. Bronchial wall thickening suggestive of bronchitis or reactive airway disease. Mild associated ate lectasis with air trapping. 3. Moderate mid to distal esophageal wall thickening with periesophageal inflammatory stranding. Find ings are suspicious for esophagitis. ACT 112: Negative or not required by law. The above report was generated using voice recognition software. It may contain grammatical, syntax o r spelling errors. Electronically signed by: Joaquin Arthur M.D. 01/22/2022 8:05 AM
[2022-01-22] MEDS ORDERED: POTASSIUM PHOS 3 MMOL/1 ML INFUSION IV STA (08:12)
[2022-01-22] MEDS ORDERED: POTASSIUM PHOSPHATE 15 MMOL in SODIUM CHLORIDE 0.9% 250 ML IV ONE (08:30)
--- NOTE | 2022-01-22 08:50 | Pharmacy Report ---
Pharmacy Glycemic Short Note 2 - Date of Service January 22, 2022 - Glycemic Short BSG Results (Last 24 hours): 01/21/22 01/21/22 01/21/22 19:42 19:48 21:04 Glucose 704 H* POC Glucose > 600 H* > 600 H* 01/21/22 01/21/22 01/21/22 21:52 22:20 22:53 Glucose 607 H* POC Glucose > 600 H* 586 H* 01/22/22 01/22/22 01/22/22 00:10 00:19 01:23 Glucose 462 H* POC Glucose 508 H* 461 H* 01/22/22 01/22/22 01/22/22 02:41 03:33 04:05 Glucose 193 H POC Glucose 308 H* 259 H 01/22/22 01/22/22 01/22/22 04:43 06:21 07:29 Glucose POC Glucose 170 H 166 H 152 H 01/22/22 08:32 Glucose POC Glucose 149 H OUTPATIENT ANTIDIABETIC REGIMEN: * [facility] (last visit 09/02/2021) * Novolog insulin pump * Basal rate: 2.5 unit/hr (60 units/day) * Insulin to carbohydrate ratio: 1:3 * Correction factor: 1:10 * HbA1c: 12.6% (01/21/22) ASSESSMENT: * KEELEY is a 66 year old female with T1DM managed with insulin pump who presented to ED for evaluation of generalized illness * Subsequently found to be in DKA * Pertinent initial labs include: serum bicarbonate 3 mmol/L, anion gap 30, glucose 704 mg/dL, pH 7.05 * Significant worsening in HbA1c, 12.6% vs. 8.8% in August 2021 * Currently unclear precipitant for DKA * Insulin pump removed and insulin infusion initiated last evening * Dextrose added to IV fluids in order to continue insulin infusion * Will convert to SC basal/bolus now that anion gap closed (9) and serum bicarbonate 15 PLAN FOR INPATIENT GLYCEMIC CONTROL: * IV insulin infusion (goal BSG range of 150-250 mg/dL) * Lantus 50 units SC x 1 (~80% of home basal) to allow for insulin gtt transition to SC * Plan to potentially restart insulin pump tomorrow afternoon * NovoLog per scale ACHS or Q6hrs while NPO once insulin infusion transitioned to SC * Goal Range: Low 110 mg/dL - High 140 mg/dL * Correction Factor: 10 mg/dL/unit * Nutritional / Prandial insulin per carb ratio of 1 unit per 3 grams CHO consumed
[2022-01-22 08:54] LABS: Base Excess VBG -9.6 mEq/L; Oxygen Saturation VBG 90.9 %; pH VBG 7.3 (7.36-7.41)
[2022-01-22] MEDS: FLUoxetine HCL 20 MG CAP PO SCH (09:18)
[2022-01-22] MEDS: ASPIRIN 81 MG ECTAB PO SCH (09:18)
[2022-01-22] MEDS: SIMVASTATIN 20 MG TAB PO SCH (09:18)
[2022-01-22 11:45] LABS: BUN Creatinine Ratio 21.7 (10-20); Calcium 8.3 mg/dl (8.5-10.1); Creatinine Clr Calc Pharmacy 60.4 ml/min; Est GFR (African American) 63.4 ml/min; Est GFR (Non-African American) 54.7 ml/min; Potassium 4.2 mmol/L (3.5-5.1)
[2022-01-22 11:51] LABS: Troponin I High Sensitivity 80.2 pg/ml (0-14)
--- NOTE | 2022-01-22 12:46 | Cardiology Consultation ---
Date of Consultation January 22, 2022 Assessment & Plan (1) DKA (diabetic ketoacidosis): (2) Elevated troponin: Patient is a 66-year-old female admitted with DKA and with marked metabolic derangement and acidosis. Patient presented with respiratory distress and tachycardia, glucose greater than 700 Troponins likely elevated on the basis of metabolic derangement and acidosis demands of tachycardia. Echocardiogram demonstrates preserved/hyperdynamic LV systolic function no signs of acute coronary syndrome Recommendations: Repeat EKG Continue treatment of DKA, fluid resuscitation treatment of metabolic derangements and any underlying concerning cause. Exam suggest bronchitis/pneumonia, supported by CTA Cardiology will follow May consider addition of low-dose beta-azul to medical regimen, outpatient stress testing depending on clinical course History of Present Illness Reason for Consultation: Elevated troponin, DKA Requesting Physician: Latoya Bill MD Attending Physician: Latoya Bill MD History of Present Illness Patient is a 66-year-old female with history of diabetes mellitus, hypertension, hyperlipidemia referred for evaluation of elevated troponin after presentation with diabetic ketoacidosis. Patient currently very drowsy and extremely poor historian Denies prior history of cardiac disease or arrhythmias. No history of rheumatic fever scarlet fever or congestive heart failure per report Currently denying any chest pains does have a wheezy nonproductive cough. Feels she has been compliant with her medication Presentation significant for elevated glucose of greater than 700, significant acidosis, sinus tachycardia Troponins mildly elevated. Echocardiogram demonstrates hyperdynamic LV function without wall motion abnormality. Allergies Allergy/AdvReac Type Severity Reaction Status Date / Time acetaminophen Allergy Severe Difficulty Verified 01/21/22 21:10 Breathing dextromethorphan Allergy Severe Difficulty Verified 01/21/22 21:10 Breathing doxylamine Allergy Severe Difficulty Verified 01/21/22 21:10 Breathing pseudoephedrine Allergy Severe Difficulty Verified 01/21/22 21:10 Breathing glyburide Allergy Intermediate RASH Verified 01/21/22 21:10 tetanus toxoid, adsorbed Allergy Intermediate painful Verified 01/21/22 21:10 joints Ethanol Allergy Severe Difficulty Uncoded 01/21/22 21:10 Breathing Home Medications Medication Instructions Recorded Confirmed Type aspirin 81 mg tablet,delayed 81 mg PO DAILY 01/29/21 01/21/22 History release (Adult Low Dose Aspirin) diphenhydramine HCl 25 mg capsule 25 mg PO HS PRN 01/29/21 01/21/22 History fluocinonide 0.05 % topical 1 applic TOPICAL DAILY ml 01/29/21 01/21/22 History solution fluoxetine 40 mg capsule 40 mg PO DAILY 01/29/21 01/21/22 History hydrochlorothiazide 12.5 mg tablet 12.5 mg PO DAILY 01/29/21 01/21/22 History levothyroxine 125 mcg tablet 125 mcg PO DAILY 01/29/21 01/21/22 History lisinopril 5 mg tablet 5 mg PO DAILY 01/29/21 01/21/22 History simvastatin 20 mg tablet 20 mg PO DAILY #90 tab 03/22/21 01/21/22 Rx Dexcom G6 Tube Roller (blood-glucose #9 ea NS 03/27/21 09/02/21 Rx meter,continuous) Dexcom G6 Transmitter #1 ea NS 03/27/21 09/02/21 Rx (blood-glucose transmitter) lansoprazole 30 mg capsule,delayed 30 mg PO DAILY PRN 06/03/21 01/21/22 History release zolpidem 10 mg tablet 10 mg PO HS tab 06/03/21 01/21/22 History OneTouch Ultra Test (blood sugar #400 ea NS 07/10/21 09/02/21 Rx diagnostic) insulin aspart U-100 100 unit/mL 0 unit CONTINUOUS SUBCUTANEOUS 01/21/22 01/21/22 History subcutaneous solution (Novolog INFUSION DAILY U-100 Insulin aspart) Patient History Surgical History History of cholecystectomy History of hysterectomy History of shoulder surgery History of tonsillectomy Family History Grandmother (Maternal) Diabetes Mother Hypertension Heart disease Grandmother (Paternal) Diabetes Social History Smoking Status: Never smoker Second Hand Exposure: No; Do You Dip or Chew Tobacco: No; Hx Alcohol Use: No Hx Substance Use: No Preferred Language: Telugu Communication Ability: Effective Implementation Manager Required: No Beliefs That Will Affect Care: None Current Living Situation: Alone Other Information That Helps Us Care for You: No Feels Safe at Home: Yes Safety Concerns: Feels Safe At This Time Assistive Devices: None Review of Systems Review of Systems: All systems reviewed & are unremarkable except as noted in HPI & below Physical Exam Constitutional: + obese and + lethargic; not ill appearing Eyes: PERRL, conjunctivae normal, anicteric sclerae ENMT: external ear and nose normal, oropharynx normal Neck: trachea midline, no thyromegaly Respiratory: Auscultation: + bronchovesicular breath sounds Cardiovascular: Rate/Rhythm: regular rate and regular rhythm Heart Sounds: normal S1 and normal S2; no murmur Vessels: no JVD Extremities: no edema Gastrointestinal (Abdomen): normal bowel sounds, soft, nontender, no hepatosplenomegaly Results & Data ([facility]) Vital Signs (Past 12 Hours) Vital Signs Temp Pulse Pulse Resp BP BP Pulse Ox 01/22/22 12:30 18 01/22/22 12:00 18 01/22/22 11:42 36.8 C 90 18 148/67 H 94 01/22/22 11:30 18 01/22/22 11:00 18 01/22/22 10:30 18 01/22/22 10:00 18 01/22/22 09:30 18 01/22/22 09:00 18 01/22/22 08:30 18 01/22/22 08:00 93 01/22/22 07:42 36.8 C 98 H 18 144/71 H 93 01/22/22 06:30 23 97 01/22/22 06:00 24 96 01/22/22 05:30 24 95 01/22/22 05:00 25 H 98 01/22/22 04:30 24 97 01/22/22 04:01 36.9 C 99 H 22 121/67 96 01/22/22 04:00 29 H 97 01/22/22 03:30 27 H 99 01/22/22 03:00 29 H 98 01/22/22 02:30 28 H 97 01/22/22 02:00 30 H 99 01/22/22 01:30 28 H 99 01/22/22 01:05 126 H 152/87 H 01/22/22 01:00 28 H 99 Laboratory Results Laboratory Results - last 24 hr 01/21/22 01/21/22 01/21/22 19:39 19:42 19:48 WBC RBC Hgb Hct MCV MCH MCHC RDW Std Deviation RDW Coeff of Rossi Plt Count MPV Immature Gran % (Auto) Neut % (Auto) Lymph % (Auto) [place] % (Auto) Eos % (Auto) Baso % (Auto) Neut # (Auto) Lymph # (Auto) [place] # (Auto) Eos # (Auto) Baso # (Auto) Immature Gran # (Auto) Echinocytes ESR PT INR APTT PTT Ratio ABG pH ABG pCO2 ABG pO2 ABG HCO3 ABG O2 Saturation ABG Base Excess Saravanan Test VBG pH VBG pCO2 VBG pO2 VBG HCO3 VBG O2 Saturation VBG Base Excess Barometric Pressure Oxygen Given Sodium Potassium Chloride Carbon Dioxide Anion Gap BUN Creatinine Est Cr Clr Drug Dosing Est GFR ( Amer) Est GFR (Non-Af Amer) BUN/Creatinine Ratio Glucose POC Glucose > 600 H* Estimat Average Glucose Hemoglobin A1c Osmolality 331 H Lactate Calcium Phosphorus Magnesium Total Bilirubin AST ALT Alkaline Phosphatase Total Creatine Kinase Troponin I High Sens 15.8 H C-Reactive Protein Total Protein Albumin Globulin Albumin/Globulin Ratio Procalcitonin TSH Urine Color Urine Appearance Urine pH Ur Specific [place] Urine Protein Urine Glucose (UA) Urine Ketones Urine Blood Urine Nitrite Urine Bilirubin Urine Urobilinogen Ur Leukocyte Esterase Urine WBC (Auto) Urine RBC (Auto) U Hyaline Cast (Auto) U Epithel Cells (Auto) Urine Bacteria (Auto) SARS-CoV-2, RNA, NAAT 01/21/22 01/21/22 01/21/22 19:48 19:48 19:48 WBC 25.91 H RBC 5.20 Hgb 15.9 Hct 50.2 H MCV 96.5 MCH 30.6 MCHC 31.7 L RDW Std Deviation 51.5 H RDW Coeff of Rossi 14.6 H Plt Count 407 H MPV 11.7 H Immature Gran % (Auto) 1.7 Neut % (Auto) 80.1 Lymph % (Auto) 10.7 [place] % (Auto) 7.3 Eos % (Auto) 0.0 Baso % (Auto) 0.2 Neut # (Auto) 20.77 H Lymph # (Auto) 2.77 [place] # (Auto) 1.88 H Eos # (Auto) 0.00 Baso # (Auto) 0.04 Immature Gran # (Auto) 0.45 H Echinocytes 1+ ESR 54 H PT 11.9 INR 1.1 APTT 36.8 H PTT Ratio 1.3 ABG pH ABG pCO2 ABG pO2 ABG HCO3 ABG O2 Saturation ABG Base Excess Saravanan Test VBG pH VBG pCO2 VBG pO2 VBG HCO3 VBG O2 Saturation VBG Base Excess Barometric Pressure Oxygen Given Sodium Potassium Chloride Carbon Dioxide Anion Gap BUN Creatinine Est Cr Clr Drug Dosing Est GFR ( Amer) Est GFR (Non-Af Amer) BUN/Creatinine Ratio Glucose POC Glucose Estimat Average Glucose Hemoglobin A1c Osmolality Lactate Calcium Phosphorus Magnesium Total Bilirubin AST ALT Alkaline Phosphatase Total Creatine Kinase Troponin I High Sens C-Reactive Protein Total Protein Albumin Globulin Albumin/Globulin Ratio Procalcitonin TSH Urine Color Urine Appearance Urine pH Ur Specific [place] Urine Protein Urine Glucose (UA) Urine Ketones Urine Blood Urine Nitrite Urine Bilirubin Urine Urobilinogen Ur Leukocyte Esterase Urine WBC (Auto) Urine RBC (Auto) U Hyaline Cast (Auto) U Epithel Cells (Auto) Urine Bacteria (Auto) SARS-CoV-2, RNA, NAAT 01/21/22 01/21/22 01/21/22 19:48 19:48 19:48 WBC RBC Hgb Hct MCV MCH MCHC RDW Std Deviation RDW Coeff of Rossi Plt Count MPV Immature Gran % (Auto) Neut % (Auto) Lymph % (Auto) [place] % (Auto) Eos % (Auto) Baso % (Auto) Neut # (Auto) Lymph # (Auto) [place] # (Auto) Eos # (Auto) Baso # (Auto) Immature Gran # (Auto) Echinocytes ESR PT INR APTT PTT Ratio ABG pH ABG pCO2 ABG pO2 ABG HCO3 ABG O2 Saturation ABG Base Excess Sar[place] Test VBG pH VBG pCO2 VBG pO2 VBG HCO3 VBG O2 Saturation VBG Base Excess Barometric Pressure Oxygen Given Sodium 123 L Potassium 5.5 H Chloride 90 L Carbon Dioxide 3 L* Anion Gap 30 H BUN 30 H Creatinine 1.59 H Est Cr Clr Drug Dosing 39.4 Est GFR ( Amer) 38.8 Est GFR (Non-Af Amer) 33.5 BUN/Creatinine Ratio 18.9 Glucose 704 H* POC Glucose Estimat Average Glucose 315 Hemoglobin A1c 12.6 H Osmolality Lactate Calcium 9.1 Phosphorus Magnesium 2.2 Total Bilirubin 0.6 AST 11 L ALT 11 Alkaline Phosphatase 150 H Total Creatine Kinase Troponin I High Sens C-Reactive Protein 2.13 H Total Protein 8.1 Albumin 4.7 Globulin 3.4 Albumin/Globulin Ratio 1.4 Procalcitonin 0.28 TSH Urine Color Urine Appearance Urine pH Ur Specific [place] Urine Protein Urine Glucose (UA) Urine Ketones Urine Blood Urine Nitrite Urine Bilirubin Urine Urobilinogen Ur Leukocyte Esterase Urine WBC (Auto) Urine RBC (Auto) U Hyaline Cast (Auto) U Epithel Cells (Auto) Urine Bacteria (Auto) SARS-CoV-2, RNA, NAAT 01/21/22 01/21/22 01/21/22 19:48 20:06 20:06 WBC RBC Hgb Hct MCV MCH MCHC RDW Std Deviation RDW Coeff of Rossi Plt Count MPV Immature Gran % (Auto) Neut % (Auto) Lymph % (Auto) [place] % (Auto) Eos % (Auto) Baso % (Auto) Neut # (Auto) Lymph # (Auto) [place] # (Auto) Eos # (Auto) Baso # (Auto) Immature Gran # (Auto) Echinocytes ESR PT INR APTT PTT Ratio ABG pH ABG pCO2 ABG pO2 ABG HCO3 ABG O2 Saturation ABG Base Excess Saravanan Test VBG pH Cancelled VBG pCO2 Cancelled VBG pO2 Cancelled VBG HCO3 Cancelled VBG O2 Saturation Cancelled VBG Base Excess Cancelled Barometric Pressure Cancelled Oxygen Given Sodium Potassium Chloride Carbon Dioxide Anion Gap BUN Creatinine Est Cr Clr Drug Dosing Est GFR ( Amer) Est GFR (Non-Af Amer) BUN/Creatinine Ratio Glucose POC Glucose Estimat Average Glucose Hemoglobin A1c Osmolality Lactate 2.4 H* Calcium Phosphorus Magnesium Total Bilirubin AST ALT Alkaline Phosphatase Total Creatine Kinase Troponin I High Sens C-Reactive Protein Total Protein Albumin Globulin Albumin/Globulin Ratio Procalcitonin TSH 1.263 Urine Color Urine Appearance Urine pH Ur Specific [place] Urine Protein Urine Glucose (UA) Urine Ketones Urine Blood Urine Nitrite Urine Bilirubin Urine Urobilinogen Ur Leukocyte Esterase Urine WBC (Auto) Urine RBC (Auto) U Hyaline Cast (Auto) U Epithel Cells (Auto) Urine Bacteria (Auto) SARS-CoV-2, RNA, NAAT 01/21/22 01/21/22 01/21/22 20:06 20:41 21:04 WBC RBC Hgb Hct MCV MCH MCHC RDW Std Deviation RDW Coeff of Rossi Plt Count MPV Immature Gran % (Auto) Neut % (Auto) Lymph % (Auto) [place] % (Auto) Eos % (Auto) Baso % (Auto) Neut # (Auto) Lymph # (Auto) [place] # (Auto) Eos # (Auto) Baso # (Auto) Immature Gran # (Auto) Echinocytes ESR PT INR APTT PTT Ratio ABG pH 7.05 L* ABG pCO2 14 L ABG pO2 123 H ABG HCO3 4 L ABG O2 Saturation 97.7 H ABG Base Excess -24.7 L Saravanan Test Pos VBG pH VBG pCO2 VBG pO2 VBG HCO3 VBG O2 Saturation VBG Base Excess Barometric Pressure 738.3 Oxygen Given ROOM AIR Sodium Potassium Chloride Carbon Dioxide Anion Gap BUN Creatinine Est Cr Clr Drug Dosing Est GFR ( Amer) Est GFR (Non-Af Amer) BUN/Creatinine Ratio Glucose POC Glucose > 600 H* Estimat Average Glucose Hemoglobin A1c Osmolality Lactate Calcium Phosphorus Magnesium Total Bilirubin AST ALT Alkaline Phosphatase Total Creatine Kinase Troponin I High Sens C-Reactive Protein Total Protein Albumin Globulin Albumin/Globulin Ratio Procalcitonin TSH Urine Color Yellow Urine Appearance Clear Urine pH 5.0 Ur Specific [place] 1.024 Urine Protein 1+ H Urine Glucose (UA) 3+ H Urine Ketones 4+ H Urine Blood 2+ H Urine Nitrite Negative Urine Bilirubin Negative Urine Urobilinogen Negative Ur Leukocyte Esterase Negative Urine WBC (Auto) 0 Urine RBC (Auto) 0-4 U Hyaline Cast (Auto) 1-5 U Epithel Cells (Auto) 5-10 H Urine Bacteria (Auto) Negative SARS-CoV-2, RNA, NAAT 01/21/22 01/21/22 01/21/22 21:52 22:09 22:20 WBC RBC Hgb Hct MCV MCH MCHC RDW Std Deviation RDW Coeff of Rossi Plt Count MPV Immature Gran % (Auto) Neut % (Auto) Lymph % (Auto) [place] % (Auto) Eos % (Auto) Baso % (Auto) Neut # (Auto) Lymph # (Auto) [place] # (Auto) Eos # (Auto) Baso # (Auto) Immature Gran # (Auto) Echinocytes ESR PT INR APTT PTT Ratio ABG pH ABG pCO2 ABG pO2 ABG HCO3 ABG O2 Saturation ABG Base Excess [place] Test VBG pH VBG pCO2 VBG pO2 VBG HCO3 VBG O2 Saturation VBG Base Excess Barometric Pressure Oxygen Given Sodium Potassium Chloride Carbon Dioxide Anion Gap BUN Creatinine Est Cr Clr Drug Dosing Est GFR ( Amer) Est GFR (Non-Af Amer) BUN/Creatinine Ratio Glucose POC Glucose > 600 H* Estimat Average Glucose Hemoglobin A1c Osmolality Lactate 2.3 H* Calcium Phosphorus Magnesium Total Bilirubin AST ALT Alkaline Phosphatase Total Creatine Kinase Troponin I High Sens C-Reactive Protein Total Protein Albumin Globulin Albumin/Globulin Ratio Procalcitonin TSH Urine Color Urine Appearance Urine pH Ur Specific [place] Urine Protein Urine Glucose (UA) Urine Ketones Urine Blood Urine Nitrite Urine Bilirubin Urine Urobilinogen Ur Leukocyte Esterase Urine WBC (Auto) Urine RBC (Auto) U Hyaline Cast (Auto) U Epithel Cells (Auto) Urine Bacteria (Auto) SARS-CoV-2, RNA, NAAT NEGATIVE 01/21/22 01/21/22 01/22/22 22:20 22:53 00:10 WBC RBC Hgb Hct MCV MCH MCHC RDW Std Deviation RDW Coeff of Rossi Plt Count MPV Immature Gran % (Auto) Neut % (Auto) Lymph % (Auto) [place] % (Auto) Eos % (Auto) Baso % (Auto) Neut # (Auto) Lymph # (Auto) [place] # (Auto) Eos # (Auto) Baso # (Auto) Immature Gran # (Auto) Echinocytes ESR PT INR APTT PTT Ratio ABG pH ABG pCO2 ABG pO2 ABG HCO3 ABG O2 Saturation ABG Base Excess [place] Test VBG pH VBG pCO2 VBG pO2 VBG HCO3 VBG O2 Saturation VBG Base Excess Barometric Pressure Oxygen Given Sodium Potassium Chloride Carbon Dioxide Anion Gap BUN Creatinine Est Cr Clr Drug Dosing Est GFR ( Amer) Est GFR (Non-Af Amer) BUN/Creatinine Ratio Glucose 607 H* POC Glucose 586 H* 508 H* Estimat Average Glucose Hemoglobin A1c Osmolality Lactate Calcium Phosphorus Magnesium Total Bilirubin AST ALT Alkaline Phosphatase Total Creatine Kinase Troponin I High Sens C-Reactive Protein Total Protein Albumin Globulin Albumin/Globulin Ratio Procalcitonin TSH Urine Color Urine Appearance Urine pH Ur Specific [place] Urine Protein Urine Glucose (UA) Urine Ketones Urine Blood Urine Nitrite Urine Bilirubin Urine Urobilinogen Ur Leukocyte Esterase Urine WBC (Auto) Urine RBC (Auto) U Hyaline Cast (Auto) U Epithel Cells (Auto) Urine Bacteria (Auto) SARS-CoV-2, RNA, NAAT 01/22/22 01/22/22 01/22/22 00:19 00:19 00:38 WBC RBC Hgb Hct MCV MCH MCHC RDW Std Deviation RDW Coeff of Rossi Plt Count MPV Immature Gran % (Auto) Neut % (Auto) Lymph % (Auto) [place] % (Auto) Eos % (Auto) Baso % (Auto) Neut # (Auto) Lymph # (Auto) [place] # (Auto) Eos # (Auto) Baso # (Auto) Immature Gran # (Auto) Echinocytes ESR PT INR APTT PTT Ratio ABG pH ABG pCO2 ABG pO2 ABG HCO3 ABG O2 Saturation ABG Base Excess Saravanan Test VBG pH 7.07 L VBG pCO2 24 L VBG pO2 42 VBG HCO3 7 VBG O2 Saturation 74.5 VBG Base Excess -21.7 Barometric Pressure 739.1 Oxygen Given Sodium 127 L Potassium 3.7 D Chloride 97 L Carbon Dioxide 6 L* Anion Gap 24 H BUN 30 H Creatinine 1.41 H Est Cr Clr Drug Dosing 45.0 Est GFR ( Amer) 44.9 Est GFR (Non-Af Amer) 38.7 BUN/Creatinine Ratio 21.3 H Glucose 462 H* POC Glucose Estimat Average Glucose Hemoglobin A1c Osmolality Lactate Calcium 8.2 L Phosphorus Magnesium Total Bilirubin AST ALT Alkaline Phosphatase Total Creatine Kinase 112 Troponin I High Sens 46.6 H D C-Reactive Protein Total Protein Albumin Globulin Albumin/Globulin Ratio Procalcitonin TSH Urine Color Urine Appearance Urine pH Ur Specific [place] Urine Protein Urine Glucose (UA) Urine Ketones Urine Blood Urine Nitrite Urine Bilirubin Urine Urobilinogen Ur Leukocyte Esterase Urine WBC (Auto) Urine RBC (Auto) U Hyaline Cast (Auto) U Epithel Cells (Auto) Urine Bacteria (Auto) SARS-CoV-2, RNA, NAAT 01/22/22 01/22/22 01/22/22 00:38 01:23 02:41 WBC RBC Hgb Hct MCV MCH MCHC RDW Std Deviation RDW Coeff of Rossi Plt Count MPV Immature Gran % (Auto) Neut % (Auto) Lymph % (Auto) [place] % (Auto) Eos % (Auto) Baso % (Auto) Neut # (Auto) Lymph # (Auto) [place] # (Auto) Eos # (Auto) Baso # (Auto) Immature Gran # (Auto) Echinocytes ESR PT INR APTT PTT Ratio ABG pH ABG pCO2 ABG pO2 ABG HCO3 ABG O2 Saturation ABG Base Excess [place] Test VBG pH VBG pCO2 VBG pO2 VBG HCO3 VBG O2 Saturation VBG Base Excess Barometric Pressure Oxygen Given Sodium Potassium Chloride Carbon Dioxide Anion Gap BUN Creatinine Est Cr Clr Drug Dosing Est GFR ( Amer) Est GFR (Non-Af Amer) BUN/Creatinine Ratio Glucose POC Glucose 461 H* 308 H* Estimat Average Glucose Hemoglobin A1c Osmolality Lactate 2.0 Calcium Phosphorus Magnesium Total Bilirubin AST ALT Alkaline Phosphatase Total Creatine Kinase Troponin I High Sens C-Reactive Protein Total Protein Albumin Globulin Albumin/Globulin Ratio Procalcitonin TSH Urine Color Urine Appearance Urine pH Ur Specific [place] Urine Protein Urine Glucose (UA) Urine Ketones Urine Blood Urine Nitrite Urine Bilirubin Urine Urobilinogen Ur Leukocyte Esterase Urine WBC (Auto) Urine RBC (Auto) U Hyaline Cast (Auto) U Epithel Cells (Auto) Urine Bacteria (Auto) SARS-CoV-2, RNA, NAAT 01/22/22 01/22/22 01/22/22 03:33 04:05 04:05 WBC 26.02 H RBC 4.84 Hgb 14.7 Hct 43.1 MCV 89.0 D MCH 30.4 MCHC 34.1 RDW Std Deviation 45.6 RDW Coeff of Rossi 13.9 Plt Count 321 MPV 11.3 H Immature Gran % (Auto) 1.5 Neut % (Auto) 73.9 Lymph % (Auto) 12.4 [place] % (Auto) 12.1 Eos % (Auto) 0.0 Baso % (Auto) 0.1 Neut # (Auto) 19.22 H Lymph # (Auto) 3.23 [place] # (Auto) 3.14 H Eos # (Auto) 0.00 Baso # (Auto) 0.03 Immature Gran # (Auto) 0.40 H Echinocytes ESR PT INR APTT PTT Ratio ABG pH ABG pCO2 ABG pO2 ABG HCO3 ABG O2 Saturation ABG Base Excess [place] Test VBG pH VBG pCO2 VBG pO2 VBG HCO3 VBG O2 Saturation VBG Base Excess Barometric Pressure Oxygen Given Sodium 130 L Potassium 3.5 Chloride 103 Carbon Dioxide 10 L Anion Gap 17 H BUN 27 H Creatinine 1.15 Est Cr Clr Drug Dosing 55.1 Est GFR ( Amer) 57.4 Est GFR (Non-Af Amer) 49.5 BUN/Creatinine Ratio 23.5 H Glucose 193 H POC Glucose 259 H Estimat Average Glucose Hemoglobin A1c Osmolality Lactate Calcium 8.3 L Phosphorus Magnesium Total Bilirubin AST ALT Alkaline Phosphatase Total Creatine Kinase Troponin I High Sens 74.5 H* D C-Reactive Protein Total Protein Albumin Globulin Albumin/Globulin Ratio Procalcitonin TSH Urine Color Urine Appearance Urine pH Ur Specific [place] Urine Protein Urine Glucose (UA) Urine Ketones Urine Blood Urine Nitrite Urine Bilirubin Urine Urobilinogen Ur Leukocyte Esterase Urine WBC (Auto) Urine RBC (Auto) U Hyaline Cast (Auto) U Epithel Cells (Auto) Urine Bacteria (Auto) SARS-CoV-2, RNA, NAAT 01/22/22 01/22/22 01/22/22 04:05 04:05 04:20 WBC RBC Hgb Hct MCV MCH MCHC RDW Std Deviation RDW Coeff of Rossi Plt Count MPV Immature Gran % (Auto) Neut % (Auto) Lymph % (Auto) [place] % (Auto) Eos % (Auto) Baso % (Auto) Neut # (Auto) Lymph # (Auto) [place] # (Auto) Eos # (Auto) Baso # (Auto) Immature Gran # (Auto) Echinocytes ESR PT INR APTT 26.0 PTT Ratio 0.9 ABG pH ABG pCO2 ABG pO2 ABG HCO3 ABG O2 Saturation ABG Base Excess Sar[place]an Test VBG pH 7.26 L VBG pCO2 27 L VBG pO2 50 VBG HCO3 12 VBG O2 Saturation 86.9 VBG Base Excess -13.4 Barometric Pressure 738.7 Oxygen Given Sodium Potassium Chloride Carbon Dioxide Anion Gap BUN Creatinine Est Cr Clr Drug Dosing Est GFR ( Amer) Est GFR (Non-Af Amer) BUN/Creatinine Ratio Glucose POC Glucose Estimat Average Glucose Hemoglobin A1c Osmolality Lactate Calcium Phosphorus 1.2 L* Magnesium Total Bilirubin AST ALT Alkaline Phosphatase Total Creatine Kinase Troponin I High Sens C-Reactive Protein Total Protein Albumin Globulin Albumin/Globulin Ratio Procalcitonin TSH Urine Color Urine Appearance Urine pH Ur Specific [place] Urine Protein Urine Glucose (UA) Urine Ketones Urine Blood Urine Nitrite Urine Bilirubin Urine Urobilinogen Ur Leukocyte Esterase Urine WBC (Auto) Urine RBC (Auto) U Hyaline Cast (Auto) U Epithel Cells (Auto) Urine Bacteria (Auto) SARS-CoV-2, RNA, NAAT 01/22/22 01/22/22 01/22/22 04:43 06:21 07:29 WBC RBC Hgb Hct MCV MCH MCHC RDW Std Deviation RDW Coeff of Rossi Plt Count MPV Immature Gran % (Auto) Neut % (Auto) Lymph % (Auto) [place] % (Auto) Eos % (Auto) Baso % (Auto) Neut # (Auto) Lymph # (Auto) [place] # (Auto) Eos # (Auto) Baso # (Auto) Immature Gran # (Auto) Echinocytes ESR PT INR APTT PTT Ratio ABG pH ABG pCO2 ABG pO2 ABG HCO3 ABG O2 Saturation ABG Base Excess [place] Test VBG pH VBG pCO2 VBG pO2 VBG HCO3 VBG O2 Saturation VBG Base Excess Barometric Pressure Oxygen Given Sodium Potassium Chloride Carbon Dioxide Anion Gap BUN Creatinine Est Cr Clr Drug Dosing Est GFR ( Amer) Est GFR (Non-Af Amer) BUN/Creatinine Ratio Glucose POC Glucose 170 H 166 H 152 H Estimat Average Glucose Hemoglobin A1c Osmolality Lactate Calcium Phosphorus Magnesium Total Bilirubin AST ALT Alkaline Phosphatase Total Creatine Kinase Troponin I High Sens C-Reactive Protein Total Protein Albumin Globulin Albumin/Globulin Ratio Procalcitonin TSH Urine Color Urine Appearance Urine pH Ur Specific [place] Urine Protein Urine Glucose (UA) Urine Ketones Urine Blood Urine Nitrite Urine Bilirubin Urine Urobilinogen Ur Leukocyte Esterase Urine WBC (Auto) Urine RBC (Auto) U Hyaline Cast (Auto) U Epithel Cells (Auto) Urine Bacteria (Auto) SARS-CoV-2, RNA, NAAT 01/22/22 01/22/22 01/22/22 08:26 08:26 08:32 WBC RBC Hgb Hct MCV MCH MCHC RDW Std Deviation RDW Coeff of Rossi Plt Count MPV Immature Gran % (Auto) Neut % (Auto) Lymph % (Auto) [place] % (Auto) Eos % (Auto) Baso % (Auto) Neut # (Auto) Lymph # (Auto) [place] # (Auto) Eos # (Auto) Baso # (Auto) Immature Gran # (Auto) Echinocytes ESR PT INR APTT PTT Ratio ABG pH ABG pCO2 ABG pO2 ABG HCO3 ABG O2 Saturation ABG Base Excess Sar[place] Test VBG pH 7.30 L VBG pCO2 32 L VBG pO2 55 VBG HCO3 16 VBG O2 Saturation 90.9 VBG Base Excess -9.6 Barometric Pressure 740.1 Oxygen Given Sodium 130 L Potassium 4.2 Chloride 106 Carbon Dioxide 15 L Anion Gap 9 BUN 23 Creatinine 1.06 Est Cr Clr Drug Dosing 60.4 Est GFR ( Amer) 63.4 Est GFR (Non-Af Amer) 54.7 BUN/Creatinine Ratio 21.7 H Glucose 157 H POC Glucose 149 H Estimat Average Glucose Hemoglobin A1c Osmolality Lactate Calcium 8.3 L Phosphorus Magnesium Total Bilirubin AST ALT Alkaline Phosphatase Total Creatine Kinase Troponin I High Sens 80.2 H* C-Reactive Protein Total Protein Albumin Globulin Albumin/Globulin Ratio Procalcitonin TSH Urine Color Urine Appearance Urine pH Ur Specific [place] Urine Protein Urine Glucose (UA) Urine Ketones Urine Blood Urine Nitrite Urine Bilirubin Urine Urobilinogen Ur Leukocyte Esterase Urine WBC (Auto) Urine RBC (Auto) U Hyaline Cast (Auto) U Epithel Cells (Auto) Urine Bacteria (Auto) SARS-CoV-2, RNA, NAAT 01/22/22 01/22/22 01/22/22 09:33 10:30 11:32 WBC RBC Hgb Hct MCV MCH MCHC RDW Std Deviation RDW Coeff of Rossi Plt Count MPV Immature Gran % (Auto) Neut % (Auto) Lymph % (Auto) [place] % (Auto) Eos % (Auto) Baso % (Auto) Neut # (Auto) Lymph # (Auto) [place] # (Auto) Eos # (Auto) Baso # (Auto) Immature Gran # (Auto) Echinocytes ESR PT INR APTT PTT Ratio ABG pH ABG pCO2 ABG pO2 ABG HCO3 ABG O2 Saturation ABG Base Excess [place] Test VBG pH VBG pCO2 VBG pO2 VBG HCO3 VBG O2 Saturation VBG Base Excess Barometric Pressure Oxygen Given Sodium Potassium Chloride Carbon Dioxide Anion Gap BUN Creatinine Est Cr Clr Drug Dosing Est GFR ( Amer) Est GFR (Non-Af Amer) BUN/Creatinine Ratio Glucose POC Glucose 160 H 143 H 133 H Estimat Average Glucose Hemoglobin A1c Osmolality Lactate Calcium Phosphorus Magnesium Total Bilirubin AST ALT Alkaline Phosphatase Total Creatine Kinase Troponin I High Sens C-Reactive Protein Total Protein Albumin Globulin Albumin/Globulin Ratio Procalcitonin TSH Urine Color Urine Appearance Urine pH Ur Specific [place] Urine Protein Urine Glucose (UA) Urine Ketones Urine Blood Urine Nitrite Urine Bilirubin Urine Urobilinogen Ur Leukocyte Esterase Urine WBC (Auto) Urine RBC (Auto) U Hyaline Cast (Auto) U Epithel Cells (Auto) Urine Bacteria (Auto) SARS-CoV-2, RNA, NAAT 01/22/22 12:33 WBC RBC Hgb Hct MCV MCH MCHC RDW Std Deviation RDW Coeff of Rossi Plt Count MPV Immature Gran % (Auto) Neut % (Auto) Lymph % (Auto) [place] % (Auto) Eos % (Auto) Baso % (Auto) Neut # (Auto) Lymph # (Auto) [place] # (Auto) Eos # (Auto) Baso # (Auto) Immature Gran # (Auto) Echinocytes ESR PT INR APTT PTT Ratio ABG pH ABG pCO2 ABG pO2 ABG HCO3 ABG O2 Saturation ABG Base Excess Saravanan Test VBG pH VBG pCO2 VBG pO2 VBG HCO3 VBG O2 Saturation VBG Base Excess Barometric Pressure Oxygen Given Sodium Potassium Chloride Carbon Dioxide Anion Gap BUN Creatinine Est Cr Clr Drug Dosing Est GFR ( Amer) Est GFR (Non-Af Amer) BUN/Creatinine Ratio Glucose POC Glucose 152 H Estimat Average Glucose Hemoglobin A1c Osmolality Lactate Calcium Phosphorus Magnesium Total Bilirubin AST ALT Alkaline Phosphatase Total Creatine Kinase Troponin I High Sens C-Reactive Protein Total Protein Albumin Globulin Albumin/Globulin Ratio Procalcitonin TSH Urine Color Urine Appearance Urine pH Ur Specific [place] Urine Protein Urine Glucose (UA) Urine Ketones Urine Blood Urine Nitrite Urine Bilirubin Urine Urobilinogen Ur Leukocyte Esterase Urine WBC (Auto) Urine RBC (Auto) U Hyaline Cast (Auto) U Epithel Cells (Auto) Urine Bacteria (Auto) SARS-CoV-2, RNA, NAAT (1) DKA (diabetic ketoacidosis) Diabetes mellitus complication detail: with coma Diabetes mellitus type: type 1 Qualified Code(s): E10.11 - Type 1 diabetes mellitus with ketoacidosis with coma
[2022-01-22] MEDS ORDERED: INSULIN GLARGINE SOLOSTAR 100 UNITS/ML 3 ML PEN SC ONE (14:30)
[2022-01-22] MEDS ORDERED: DC IV INSULIN INFUSION 1 EA DEVI ONE (14:38)
[2022-01-22 16:06] LABS: Troponin I High Sensitivity 59.2 pg/ml (0-14)
[2022-01-22 16:08] LABS: Base Excess VBG -7.6 mEq/L; Oxygen Saturation VBG 92.7 %; pH VBG 7.33 (7.36-7.41)
[2022-01-22] MEDS: SODIUM CHLORIDE 0.9% 1000ML 1,000 ML IV SCH (16:29)
--- NOTE | 2022-01-22 16:35 | Hospitalist Progress Note ---
Date of Service January 22, 2022 Assessment & Plan (1) Hyperglycemic crisis in diabetes mellitus: Plan: Type 1 diabetes Present on admission with worsening BS and SOB elevated anion gap and WBC Most recent hbA1c 12.6 Pharmacy on board for glycemic management Pt was starting on Insulin drip Insulin drip was discontinued and transition to basal insulin continue monitor BS Elevated troponin Due to demand ischemia from DKA troponin peak to 80, now treding down ECHO showed no wall motion abnormality Cardiology on board - No additiona e Continue aspirin daily Electrolytes imbalance Phosp 1.2 Phosphate replaced SOB Bronchitis CTA chest showed no PE. Bronchial wall thickening suggestive of bronchitis or reactive airway disease. starting on Doxycycline Contnue monitor closey Hypothyroidism Continue levothyroxine DVT prophylaxis. Heparin subcu Full code Admission and Anticipated Discharge Date Admission Date: January 21, 2022 Subjective Pt was seen and examined for follow up of DKA Lying in bed with with no acute distress feeling drowsy She said that she is not having any chest pain and sob Review of Systems Review of Systems: All systems reviewed & are unremarkable except as noted in Subjective Physical Exam Physical Exam: General- No acute distress Head- atraumatic Eyes- PERRL, EOMI, ENT- oropharynx clear Neck- supple, no JVD Lungs- +coarse breath soun Heart- regular rhythm; no murmur Abdomen- normal bowel sounds, soft, nontender Extremities- no calf tenderness Neuro- alert, oriented x 3; PERRL, EOMI; no facial palsy; no dysarthria Skin- warm & dry Results & Data Results & Data ([facility]) Vital Signs (Past 12 Hours) Vital Signs Temp Pulse Resp BP Pulse Ox 01/22/22 15:42 37.1 C 93 H 20 166/63 H 95 01/22/22 15:30 18 01/22/22 15:00 18 95 01/22/22 14:30 18 01/22/22 14:00 18 01/22/22 13:30 18 01/22/22 13:00 20 01/22/22 12:30 18 01/22/22 12:00 18 01/22/22 11:42 36.8 C 90 18 148/67 H 94 01/22/22 11:30 18 01/22/22 11:00 18 01/22/22 10:30 18 01/22/22 10:00 18 01/22/22 09:30 18 01/22/22 09:00 18 01/22/22 08:30 18 01/22/22 08:00 93 01/22/22 07:42 36.8 C 98 H 18 144/71 H 93 01/22/22 06:30 23 97 01/22/22 06:00 24 96 01/22/22 05:30 24 95 01/22/22 05:00 25 H 98
[2022-01-22] MEDS: DOXYCYCLINE HYCLATE 100 MG CAP PO SCH ×2 (16:56→21:08)
[2022-01-22 17:28] LABS: BUN Creatinine Ratio 19.8 (10-20); Calcium 8.2 mg/dl (8.5-10.1); Creatinine Clr Calc Pharmacy 74.4 ml/min; Est GFR (African American) 81.6 ml/min; Est GFR (Non-African American) 70.4 ml/min; Potassium 4.8 mmol/L (3.5-5.1)
[2022-01-22] MEDS: oxyCODONE HCL IR 5 MG TAB (IMMEDIATE RELEASE) PO PRN (19:25)
[2022-01-22] MEDS: amLODIPine BESYLATE 5 MG TAB PO SCH (21:08)
[2022-01-23] MEDS: INSULIN ASPART PER UNIT SC SCH ×6 (00:11→20:42)
[2022-01-23] MEDS: SODIUM CHLORIDE 0.9% 1000ML 1,000 ML IV SCH ×3 (02:24→22:30)
[2022-01-23] MEDS ORDERED: cloNIDine HCL 0.1 MG TAB PO ONE (04:44)
[2022-01-23] MEDS: oxyCODONE HCL IR 5 MG TAB (IMMEDIATE RELEASE) PO PRN ×3 (04:55→20:40)
[2022-01-23] MEDS: HEPARIN SOD 5,000 UNIT/0.5 ML VIAL SQ SCH ×3 (06:26→22:45)
[2022-01-23] MEDS: LEVOTHYROXINE SODIUM 125 MCG TABLET PO SCH (06:26)
--- NOTE | 2022-01-23 06:58 | Electrocardiogram Report ---
Test Reason : Blood Pressure : / mmHG Vent. Rate : 134 BPM Atrial Rate : 134 BPM P-R Int : 138 ms QRS Dur : 102 ms QT Int : 300 ms P-R-T Axes : 000 140 010 degrees QTc Int : 448 ms Sinus tachycardia Possible Limb lead reversal Possible Inferior infarct , age undetermined Abnormal ECG When compared with ECG of 30-JUL-2011 11:25, Vent. rate has increased BY 56 BPM Limb lead reversal is now Present Nonspecific T wave abnormality now evident in Inferior leads T wave amplitude has decreased in Lateral leads Confirmed by Miguel Tobar ([id number]) on 01/23/2022 6:58:23 AM Referred By: REFERRED SELF Confirmed By:Miguel Tobar
[2022-01-23 07:43] LABS: Hematocrit (blood only) 37.7 % (37-47); Hemoglobin 12.9 g/dL (12.0-16.0); Mean Corpuscular Hemoglobin 30.1 pg (25-34); Mean Corpuscular Hgb Conc 34.2 g/dL (32-36); Mean Corpuscular Volume 87.9 fL (80-100); Mean Platelet Volume 11.1 fL (7.4-10.4); Platelet Count 232 K/uL (130-400); RDW Coefficient of Variation 14.8 % (11.5-14.5); RDW Standard Deviation 47.8 fL (36.4-46.3); Red Blood Count 4.29 M/uL (4.2-5.4); White Blood Count 13.84 K/uL (4.8-10.8)
[2022-01-23 07:49] LABS: BUN Creatinine Ratio 16.4 (10-20); Calcium 7.9 mg/dl (8.5-10.1); Creatinine Clr Calc Pharmacy 95.4 ml/min; Est GFR (African American) 106.2 ml/min; Est GFR (Non-African American) 91.6 ml/min; Phosphorus 1.1 mg/dl (2.5-4.9); Potassium 3.6 mmol/L (3.5-5.1)
[2022-01-23] MEDS ORDERED: NovoLIN-N (NPH) PER UNIT CHARGE SQ ONE (08:00)
[2022-01-23] MEDS ORDERED: POTASSIUM PHOS 3 MMOL/1 ML INFUSION IV STA (08:11)
[2022-01-23] MEDS: DOXYCYCLINE HYCLATE 100 MG CAP PO SCH ×2 (08:15→20:36)
[2022-01-23] MEDS: ASPIRIN 81 MG ECTAB PO SCH (08:16)
[2022-01-23] MEDS: SIMVASTATIN 20 MG TAB PO SCH (08:17)
[2022-01-23] MEDS: FLUoxetine HCL 20 MG CAP PO SCH (08:17)
[2022-01-23] MEDS ORDERED: POTASSIUM PHOSPHATE 30 MMOL in SODIUM CHLORIDE 0.9% 500 ML IV ONE (08:30)
--- NOTE | 2022-01-23 09:21 | Pharmacy Report ---
Pharmacy Glycemic Short Note 2 - Date of Service January 23, 2022 - Glycemic Short BSG Results (Last 24 hours): 01/22/22 01/22/22 01/22/22 08:26 09:33 10:30 Glucose 157 H POC Glucose 160 H 143 H 01/22/22 01/22/22 01/22/22 11:32 12:33 13:41 Glucose POC Glucose 133 H 152 H 170 H 01/22/22 01/22/22 01/22/22 14:42 14:44 16:25 Glucose 182 H POC Glucose 176 H 202 H 01/22/22 01/22/22 01/23/22 18:33 20:26 00:03 Glucose POC Glucose 138 H 245 H 208 H 01/23/22 01/23/22 01/23/22 03:51 06:57 07:13 Glucose 229 H POC Glucose 220 H 201 H OUTPATIENT ANTIDIABETIC REGIMEN: * Patient follows with [place] [facility] (last visit 09/02/2021) * Novolog insulin pump * Basal rate: 2.5 unit/hr (60 units/day) * Insulin to carbohydrate ratio: 1:3 * Correction factor: 1:10 * HbA1c: 12.6% (01/21/22) ASSESSMENT: 01/23 * DKA now largely resolved and patient was subsequently transitioned to SC basal/bolus insulin yesterday * BSGs still elevated (>200 mg/dL) * Plan is to resume insulin pump today (family will need to bring in for patient) * As insulin pump is not currently here, will give ~40% in the form of NPH to allow for more basal with shorter half-life so pump may be resumed later today 01/22 * LN is a 66 year old female with T1DM managed with insulin pump who presented to ED for evaluation of generalized illness * Subsequently found to be in DKA * Pertinent initial labs include: serum bicarbonate 3 mmol/L, anion gap 30, glucose 704 mg/dL, pH 7.05 * Significant worsening in HbA1c, 12.6% vs. 8.8% in August 2021 * Currently unclear precipitant for DKA * Insulin pump removed and insulin infusion initiated last evening * Dextrose added to IV fluids in order to continue insulin infusion * Will convert to SC basal/bolus now that anion gap closed (9) and serum bicarbonate 15 PLAN FOR INPATIENT GLYCEMIC CONTROL: * NPH 25 units SC x 1 this morning * Resume insulin pump later today if family can provide * NovoLog per scale ACHS or Q6hrs while NPO * Goal Range: Low 110 mg/dL - High 140 mg/dL * Correction Factor: 10 mg/dL/unit * Nutritional / Prandial insulin per carb ratio of 1 unit per 3 grams CHO consumed
--- NOTE | 2022-01-23 13:11 | Cardiology Progress Note ---
Date of Service January 23, 2022 Assessment & Plan (1) DKA (diabetic ketoacidosis): (2) Elevated troponin: Plan: Patient is a 66-year-old female admitted with DKA and with marked metabolic derangement and acidosis. Patient presented with respiratory distress and tachycardia, glucose greater than 700 Troponins likely elevated on the basis of metabolic derangement and acidosis, demands of tachycardia. Echocardiogram demonstrates preserved/hyperdynamic LV systolic function no signs of acute coronary syndrome Recommendations: Repeat EKG demonstrates no Q waves or ST segment abnormalities Continue treatment of DKA, fluid resuscitation treatment of metabolic derangements and any underlying concerning cause. Correct metabolic abnormalities including potassium to greater than 4 to prevent atrial arrhythmias Admission and Anticipated Discharge Date Admission Date: January 21, 2022 Subjective Patient was seen and examined, chart, medications, telemetry reviewed. "Still feels groggy in the head" No chest pains or discomfort. Wheezy cough remains present with minimal sputum production. No fevers or chills. Glucoses are coming under control. No arrhythmias on telemetry Review of Systems Review of Systems: All systems reviewed & are unremarkable except as noted in Subjective Physical Exam Constitutional: + obese and + lethargic; not ill appearing Eyes: PERRL, conjunctivae normal, anicteric sclerae ENMT: external ear and nose normal, oropharynx normal Neck: trachea midline, no thyromegaly Respiratory: Auscultation: + bronchovesicular breath sounds Cardiovascular: Rate/Rhythm: regular rate and regular rhythm Heart Sounds: normal S1 and normal S2; no murmur Vessels: no JVD Extremities: no edema Gastrointestinal (Abdomen): normal bowel sounds, soft, nontender, no hepatosplenomegaly Results & Data ([facility]) Vital Signs (Past 12 Hours) Vital Signs Temp Pulse Pulse Resp BP Pulse Ox 01/23/22 10:33 36.7 C 83 20 135/71 95 01/23/22 09:10 92 H 01/23/22 08:30 18 93 01/23/22 08:00 18 95 01/23/22 07:30 18 95 01/23/22 07:00 18 93 01/23/22 06:21 36.9 C 94 H 18 146/75 H 91 01/23/22 05:00 20 96 01/23/22 04:30 36.8 C 95 H 19 178/79 H 94 01/23/22 04:00 18 05/12/22 03:30 18 100 01/23/22 03:00 17 98 01/23/22 02:30 18 96 01/23/22 02:00 18 96 01/23/22 01:30 19 97 Laboratory Results Laboratory Results - last 24 hr 01/22/22 01/22/22 01/22/22 13:41 14:42 14:44 WBC RBC Hgb Hct MCV MCH MCHC RDW Std Deviation RDW Coeff of Rossi Plt Count MPV VBG pH VBG pCO2 VBG pO2 VBG HCO3 VBG O2 Saturation VBG Base Excess Barometric Pressure Sodium 131 L Potassium 4.8 Chloride 108 H Carbon Dioxide 17 L Anion Gap 6 BUN 17 Creatinine 0.86 Est Cr Clr Drug Dosing 74.4 Est GFR ( Amer) 81.6 Est GFR (Non-Af Amer) 70.4 BUN/Creatinine Ratio 19.8 Glucose 182 H POC Glucose 170 H 176 H Calcium 8.2 L Phosphorus Troponin I High Sens 59.2 H* D 01/22/22 01/22/22 01/22/22 14:44 15:36 16:25 WBC RBC Hgb Hct MCV MCH MCHC RDW Std Deviation RDW Coeff of Rossi Plt Count MPV VBG pH Cancelled 7.33 L VBG pCO2 Cancelled 34 L VBG pO2 Cancelled 59 VBG HCO3 Cancelled 17 VBG O2 Saturation Cancelled 92.7 VBG Base Excess Cancelled -7.6 Barometric Pressure Cancelled 737.5 Sodium Potassium Chloride Carbon Dioxide Anion Gap BUN Creatinine Est Cr Clr Drug Dosing Est GFR ( Amer) Est GFR (Non-Af Amer) BUN/Creatinine Ratio Glucose POC Glucose 202 H Calcium Phosphorus Troponin I High Sens 01/22/22 01/22/22 01/23/22 18:33 20:26 00:03 WBC RBC Hgb Hct MCV MCH MCHC RDW Std Deviation RDW Coeff of Rossi Plt Count MPV VBG pH VBG pCO2 VBG pO2 VBG HCO3 VBG O2 Saturation VBG Base Excess Barometric Pressure Sodium Potassium Chloride Carbon Dioxide Anion Gap BUN Creatinine Est Cr Clr Drug Dosing Est GFR ( Amer) Est GFR (Non-Af Amer) BUN/Creatinine Ratio Glucose POC Glucose 138 H 245 H 208 H Calcium Phosphorus Troponin I High Sens 01/23/22 01/23/22 01/23/22 03:51 06:57 06:57 WBC 13.84 H RBC 4.29 Hgb 12.9 Hct 37.7 MCV 87.9 MCH 30.1 MCHC 34.2 RDW Std Deviation 47.8 H RDW Coeff of Rossi 14.8 H Plt Count 232 MPV 11.1 H VBG pH VBG pCO2 VBG pO2 VBG HCO3 VBG O2 Saturation VBG Base Excess Barometric Pressure Sodium 134 L Potassium 3.6 D Chloride 107 Carbon Dioxide 20 L Anion Gap 7 BUN 11 Creatinine 0.67 Est Cr Clr Drug Dosing 95.4 Est GFR ( Amer) 106.2 Est GFR (Non-Af Amer) 91.6 BUN/Creatinine Ratio 16.4 Glucose 229 H POC Glucose 220 H Calcium 7.9 L Phosphorus 1.1 L* Troponin I High Sens 01/23/22 01/23/22 07:13 11:15 WBC RBC Hgb Hct MCV MCH MCHC RDW Std Deviation RDW Coeff of Rossi Plt Count MPV VBG pH VBG pCO2 VBG pO2 VBG HCO3 VBG O2 Saturation VBG Base Excess Barometric Pressure Sodium Potassium Chloride Carbon Dioxide Anion Gap BUN Creatinine Est Cr Clr Drug Dosing Est GFR ( Amer) Est GFR (Non-Af Amer) BUN/Creatinine Ratio Glucose POC Glucose 201 H 215 H Calcium Phosphorus Troponin I High Sens (1) DKA (diabetic ketoacidosis) Diabetes mellitus complication detail: with coma Diabetes mellitus type: type 1 Qualified Code(s): E10.11 - Type 1 diabetes mellitus with ketoacidosis with coma
--- NOTE | 2022-01-23 14:35 | Hospitalist Progress Note ---
Date of Service January 23, 2022 Assessment & Plan (1) Hyperglycemic crisis in diabetes mellitus: Plan: Type 1 diabetes Present on admission with worsening BS and SOB elevated anion gap and WBC Most recent hbA1c 12.6 Pharmacy on board for glycemic management Pt was starting on Insulin drip Insulin drip was discontinued and transition to basal insulin Awaiting pump to be restarted Remains very weak and lethargic We will get PT and OT evaluation prior to discharge Elevated troponin Due to demand ischemia from DKA troponin peak to 80, now treding down ECHO showed no wall motion abnormality Cardiology on board - No additional testing Continue aspirin daily Electrolytes imbalance Phosp 1.1 as of 01/23/2022 Phosphate replaced-and will recheck SOB Bronchitis CTA chest showed no PE. Bronchial wall thickening suggestive of bronchitis or reactive airway disease. starting on Doxycycline Continue monitor closely Hypothyroidism Continue levothyroxine DVT prophylaxis. Heparin subcu Full code Admission and Anticipated Discharge Date Admission Date: January 21, 2022 Subjective 01/23/2022 The patient was seen and examined in telemetry unit She feels better since admission but is still remains very drowsy and groggy Not yet ready to be discharged Denies any abdominal pain, nausea and or vomiting, no fever and or chills and no cough and no shortness of breath Review of Systems Review of Systems: All systems reviewed and are unremarkable except as noted below Physical Exam Physical Exam: Lying in bed with weakness and little drowsiness Constitutional: well developed, well nourished, + ill appearing and + obese Eyes: PERRL, conjunctivae normal, anicteric sclerae ENMT: external ear and nose normal, oropharynx normal Neck: trachea midline, no thyromegaly Respiratory: no respiratory distress Auscultation: + breath sounds absent and + crackles (Minimal crackles at the bases) Cardiovascular: Rate/Rhythm: regular rate and regular rhythm; not tachycardic Heart Sounds: normal S1 and normal S2; no murmur Extremities: no edema Gastrointestinal (Abdomen): Inspection/Auscultation: normal bowel sounds; abdomen not distended Percussion/Palpation: abdomen soft; abdomen nontender Musculoskeletal: No acute arthritis in any joint Neurologic: Alert, awake and oriented x3. Generally very weak and lethargic. We will get PT and OT evaluation prior to discharge Lymphatic: no cervical or axillary lymphadenopathy Results & Data Results & Data ([facility]) Vital Signs (Past 12 Hours) Vital Signs Temp Pulse Pulse Resp BP Pulse Ox 01/23/22 10:33 36.7 C 83 20 135/71 95 01/23/22 09:10 92 H 01/23/22 08:30 18 93 01/23/22 08:00 18 95 01/23/22 07:30 18 95 01/23/22 07:00 18 93 01/23/22 06:21 36.9 C 94 H 18 146/75 H 91 01/23/22 05:00 20 96 01/23/22 04:30 36.8 C 95 H 19 178/79 H 94 01/23/22 04:00 18 01/23/22 03:30 18 100 01/23/22 03:00 17 98 Laboratory Results Short CBC 01/23/22 Range/Units 06:57 WBC 13.84 H (4.8-10.8) K/uL Hgb 12.9 (12.0-16.0) g/dL Hct 37.7 (37-47) % Plt Count 232 (130-400) K/uL BMP 01/22/22 01/23/22 14:44 06:57 Sodium 131 L 134 L Potassium 4.8 3.6 D Chloride 108 H 107 Carbon Dioxide 17 L 20 L BUN 17 11 Creatinine 0.86 0.67 Glucose 182 H 229 H Calcium 8.2 L 7.9 L Medications Administered Current Inpatient Medications Amlodipine Besylate (Amlodipine Besylate 5 Mg Tab) 2.5 mg PO HS CLAUDIA Stop: 02/21/22 20:59 Last Admin: 01/22/22 21:08 Dose: 2.5 mg Documented by: Aspirin (Aspirin 81 Mg Ectab) 81 mg PO DAILY CLAUDIA Stop: 02/21/22 08:59 Last Admin: 01/23/22 08:16 Dose: 81 mg Documented by: Dextrose (Dextrose 50% 50 Ml Syringe) 25 - 50 ml IV UD PRN; Protocol PRN Reason: Hypoglycemia Protocol Stop: 02/20/22 20:59 Doxycycline Hyclate (Doxycycline Hyclate 100 Mg Cap) 100 mg PO BID CLAUDIA Stop: 01/29/22 15:54 Last Admin: 01/23/22 08:15 Dose: 100 mg Documented by: Fluoxetine HCl (Fluoxetine Hcl 20 Mg Cap) 40 mg PO DAILY CLAUDIA Stop: 02/21/22 08:59 Last Admin: 01/23/22 08:17 Dose: 40 mg Documented by: Glucagon (Glucagon For Inj 1 Mg Vial) 1 mg IM UD PRN; Protocol PRN Reason: Hypoglycemia Protocol Stop: 02/20/22 20:59 Glucose (Glucose 40% Gel 15 Gm Tube) 15 - 30 gm PO UD PRN; Protocol PRN Reason: Hypoglycemia Protocol Stop: 02/20/22 20:59 Glucose (Glucose 10 Tabs/Tube) 4 - 8 tabs PO UD PRN; Protocol PRN Reason: Hypoglycemia Protocol Stop: 02/20/22 20:59 Heparin Sodium (Porcine) (Heparin Sod 5,000 Unit/0.5 Ml Vial) 5,000 units SQ Q8 CLAUDIA Stop: 02/21/22 05:59 Last Admin: 01/23/22 06:26 Dose: 5,000 units Documented by: Hydromorphone HCl (Hydromorphone Inj 0.5 Mg/0.5 Ml Syr) 0.5 mg IV Q3H PRN PRN Reason: Pain Stop: 02/04/22 22:36 Promethazine HCl 12.5 mg/ (Sodium Chloride) 50.5 mls @ 202 mls/hr IV Q6H PRN PRN Reason: Nausea And Vomiting Stop: 02/20/22 22:36 Sodium Chloride (Nss 1000ml) 1,000 mls @ 100 mls/hr IV .Q10H CLAUDIA Stop: 02/21/22 15:29 Last Admin: 01/23/22 12:12 Dose: 100 mls/hr Documented by: Insulin Aspart (Insulin Aspart Per Unit) 0 units SC ACHS CLAUDIA Stop: 02/21/22 12:29 Last Admin: 01/23/22 12:13 Dose: 18 units Documented by: Levothyroxine Sodium (Levothyroxine Sodium 125 Mcg Tablet) 125 mcg PO DAILYBB CLAUDIA Stop: 02/21/22 06:29 Last Admin: 01/23/22 06:26 Dose: 125 mcg Documented by: Lorazepam (Lorazepam 2 Mg/1 Ml Vial) 0.5 mg IV Q4H PRN PRN Reason: Anxiety Stop: 02/20/22 22:36 Miscellaneous (Carbohydrates For Hypoglycemia ) 15 - 30 gm PO PRN PRN PRN Reason: Hypoglycemia Treatment Stop: 02/20/22 20:59 Miscellaneous Information (Pharmacy Glycemic Mgmt Consult) 1 ea N/A UD PRN PRN Reason: Consult Stop: 02/20/22 22:31 Oxycodone HCl (Oxycodone Hcl Ir 5 Mg Tab (Immediate Release)) 5 - 10 mg PO QID PRN PRN Reason: Pain Stop: 02/04/22 22:31 Last Admin: 01/23/22 04:55 Dose: 10 mg Documented by: Pantoprazole Sodium (Pantoprazole 40 Mg Tab) 40 mg PO DAILY PRN PRN Reason: Indigestion Last Admin: 01/23/22 08:16 Dose: 40 mg Documented by: Simvastatin (Simvastatin 20 Mg Tab) 20 mg PO DAILY CLAUDIA Stop: 02/21/22 08:59 Last Admin: 01/23/22 08:17 Dose: 20 mg Documented by: Zolpidem Tartrate (Zolpidem Tartrate 10 Mg Tab) 10 mg PO HS PRN PRN Reason: insomnia Stop: 02/20/22 23:57
[2022-01-23] MEDS: amLODIPine BESYLATE 5 MG TAB PO SCH (20:36)
[2022-01-24] MEDS: INSULIN ASPART PER UNIT SC SCH ×2 (00:13→04:15)
[2022-01-24] MEDS: oxyCODONE HCL IR 5 MG TAB (IMMEDIATE RELEASE) PO PRN (00:30)
[2022-01-24] MEDS: LEVOTHYROXINE SODIUM 125 MCG TABLET PO SCH (06:22)
[2022-01-24] MEDS: HEPARIN SOD 5,000 UNIT/0.5 ML VIAL SQ SCH ×3 (06:22→19:40)
[2022-01-24] MEDS ORDERED: INSULIN ASPART 100 UNITS/ML VIAL SC PRN (07:30)
[2022-01-24] MEDS: SODIUM CHLORIDE 0.9% 1000ML 1,000 ML IV SCH ×2 (08:06→17:40)
[2022-01-24] MEDS: SIMVASTATIN 20 MG TAB PO SCH (08:07)
[2022-01-24] MEDS: DOXYCYCLINE HYCLATE 100 MG CAP PO SCH ×2 (08:07→19:38)
[2022-01-24] MEDS: FLUoxetine HCL 20 MG CAP PO SCH (08:07)
[2022-01-24] MEDS: ASPIRIN 81 MG ECTAB PO SCH (08:07)
[2022-01-24 08:14] LABS: Basophils # (auto) 0.02 K/uL (0-0.2); Basophils % (auto) 0.2 %; Eosinophils # (auto) 0.13 K/uL (0-0.5); Eosinophils % (auto) 1.2 %; Hematocrit (blood only) 39.2 % (37-47); Immature Granulocytes # (auto) 0.03 K/uL (0.00-0.02); Immature Granulocytes % (auto) 0.3 %; Lymphocytes # (auto) 3.65 K/uL (1.2-3.4); Mean Corpuscular Hemoglobin 28.9 pg (25-34); Mean Corpuscular Volume 87.1 fL (80-100); Mean Platelet Volume 11.4 fL (7.4-10.4); Monocytes # (auto) 1.37 K/uL (0.11-0.59); Monocytes % (auto) 12.7 %; Neutrophils # (auto) 5.55 K/uL (1.4-6.5); Neutrophils % (auto) 51.6 %; Platelet Count 234 K/uL (130-400); RDW Standard Deviation 47.8 fL (36.4-46.3); White Blood Count 10.75 K/uL (4.8-10.8)
[2022-01-24 08:15] LABS: Mean Corpuscular Hgb Conc 33.2 g/dL (32-36)
[2022-01-24 08:37] LABS: Albumin Globulin Ratio 1.5 (0.9-2); Albumin Level 3.5 gm/dl (3.4-5.0); BUN Creatinine Ratio 11.8 (10-20); Bilirubin,Total 0.6 mg/dl (0.2-1.0); Calcium 8.1 mg/dl (8.5-10.1); Creatinine Clr Calc Pharmacy 125.1 ml/min; Est GFR (African American) 116.1 ml/min; Est GFR (Non-African American) 100.2 ml/min; Globulin 2.4 gm/dl (2.5-4.0); Magnesium 1.8 mg/dl (1.7-2.4); Phosphorus 1.6 mg/dl (2.5-4.9); Potassium 3.3 mmol/L (3.5-5.1); Total Protein 5.9 gm/dl (6.0-8.3)
[2022-01-24] MEDS ORDERED: POTASSIUM PHOS 3 MMOL/1 ML INFUSION IV STA (08:51)
[2022-01-24] MEDS ORDERED: POTASSIUM PHOSPHATE 30 MMOL in DEXTROSE 5% 500 ML IV ONE (09:00)
[2022-01-24] MEDS: NovoLOG INSULIN PUMP SCH ×4 (09:45→19:37)
--- NOTE | 2022-01-24 13:05 | Pharmacy Report ---
Pharmacy Glycemic Short Note 2 - Date of Service January 24, 2022 - Glycemic Short BSG Results (Last 24 hours): 01/23/22 01/23/22 01/24/22 16:28 20:22 00:10 Glucose POC Glucose 107 H 139 H 253 H 01/24/22 01/24/22 01/24/22 04:12 07:06 07:18 Glucose Cancelled POC Glucose 121 H 184 H 01/24/22 01/24/22 07:40 11:20 Glucose 200 H POC Glucose 249 H OUTPATIENT ANTIDIABETIC REGIMEN: * Patient follows with [place] [facility] (last visit 09/02/2021) * Novolog insulin pump * Basal rate: 2.5 unit/hr (60 units/day) * Insulin to carbohydrate ratio: 1:3 * Correction factor: 1:10 * HbA1c: 12.6% (01/21/22) ASSESSMENT: 01/24 * Insulin pump now available this morning, placed this morning and is currently infusing * BSGs likely to be somewhat elevated today given reduced basal dose yesterday in anticipation for insulin pump yesterday afternoon * Patient to self-manage via insulin pump, will continue to follow and intervene as necessary 01/23 * DKA now largely resolved and patient was subsequently transitioned to SC basal/bolus insulin yesterday * BSGs still elevated (>200 mg/dL) * Plan is to resume insulin pump today (family will need to bring in for patient) * As insulin pump is not currently here, will give ~40% in the form of NPH to allow for more basal with shorter half-life so pump may be resumed later today 01/22 * LN is a 66 year old female with T1DM managed with insulin pump who presented to ED for evaluation of generalized illness * Subsequently found to be in DKA * Pertinent initial labs include: serum bicarbonate 3 mmol/L, anion gap 30, glucose 704 mg/dL, pH 7.05 * Significant worsening in HbA1c, 12.6% vs. 8.8% in August 2021 * Currently unclear precipitant for DKA * Insulin pump removed and insulin infusion initiated last evening * Dextrose added to IV fluids in order to continue insulin infusion * Will convert to SC basal/bolus now that anion gap closed (9) and serum bicarbonate 15 PLAN FOR INPATIENT GLYCEMIC CONTROL: * Patient to self-manage via insulin pump, consent signed/flow-sheet provided
--- NOTE | 2022-01-24 13:56 | Hospitalist Progress Note ---
Date of Service January 24, 2022 Assessment & Plan (1) Hyperglycemic crisis in diabetes mellitus: Plan: Type 1 diabetes Present on admission with worsening BS and SOB elevated anion gap and WBC Most recent hbA1c 12.6 Pharmacy on board for glycemic management Pt was starting on Insulin drip Insulin drip was discontinued and transition to basal insulin Awaiting pump to be restarted Remains very weak and lethargic We will get PT and OT evaluation prior to discharge She is back to her insulin pump and blood sugar is reasonable Remains extremely weak and lethargic and will need PT and OT evaluation Elevated troponin Due to demand ischemia from DKA troponin peak to 80, now treding down ECHO showed no wall motion abnormality Cardiology on board - No additional testing Continue aspirin daily Electrolytes imbalance Phosp 1.1 as of 01/23/2022 Phosphate replaced-and will recheck SOB Bronchitis CTA chest showed no PE. Bronchial wall thickening suggestive of bronchitis or reactive airway disease. starting on Doxycycline Continue monitor closely Remains free of any symptoms no shortness of breath at rest Hypothyroidism Continue levothyroxine DVT prophylaxis. Heparin subcu Full code Admission and Anticipated Discharge Date Admission Date: January 21, 2022 Subjective 01/23/2022 The patient was seen and examined in telemetry unit She feels better since admission but is still remains very drowsy and groggy Not yet ready to be discharged Denies any abdominal pain, nausea and or vomiting, no fever and or chills and no cough and no shortness of breath 04/26/2022 The patient was seen and examined in telemetry unit She has been very weak and lethargic but a little better compared with yesterday She is back on her insulin pump Denies any other significant symptoms except weakness and tiredness Review of Systems Review of Systems: All systems reviewed and are unremarkable except as noted below Physical Exam Physical Exam: Lying in bed with weakness and little drowsiness Constitutional: well developed, well nourished, + ill appearing and + obese Eyes: PERRL, conjunctivae normal, anicteric sclerae ENMT: external ear and nose normal, oropharynx normal Neck: trachea midline, no thyromegaly Respiratory: no respiratory distress Auscultation: + breath sounds absent and + crackles (Minimal crackles at the bases) Cardiovascular: Rate/Rhythm: regular rate and regular rhythm; not tachycardic Heart Sounds: normal S1 and normal S2; no murmur Extremities: no edema Gastrointestinal (Abdomen): Inspection/Auscultation: normal bowel sounds; abdomen not distended Percussion/Palpation: abdomen soft; abdomen nontender Musculoskeletal: No acute arthritis in any joint Neurologic: patellar DTR's 2+ bilat, sensation intact Generally weak and lethargic though Psychiatric: A+Ox3, euthymic affect Lymphatic: no cervical or axillary lymphadenopathy Results & Data Results & Data ([facility]) Vital Signs (Past 12 Hours) Vital Signs Temp Pulse Pulse Resp BP Pulse Ox 01/24/22 13:00 16 01/24/22 12:30 16 01/24/22 12:00 16 01/24/22 11:30 14 01/24/22 11:09 36.8 C 78 19 164/66 H 96 01/24/22 11:00 14 01/24/22 10:30 14 L 01/24/22 10:00 16 01/24/22 09:00 16 01/24/22 08:30 14 01/24/22 08:00 14 01/24/22 07:37 81 01/24/22 07:33 36.9 C 93 H 18 176/95 H 95 01/24/22 07:30 14 01/24/22 07:00 14 01/24/22 06:30 19 01/24/22 06:00 21 98 01/24/22 05:00 16 99 01/24/22 04:00 19 96 01/24/22 02:55 36.7 C 81 18 161/79 H 93 Laboratory Results Short CBC 01/24/22 01/24/22 Range/Units 07:06 07:36 WBC Cancelled 10.75 Hgb Cancelled 13.0 Hct Cancelled 39.2 Plt Count Cancelled 234 BMP 01/24/22 01/24/22 07:06 07:40 Sodium Cancelled 135 L Potassium Cancelled 3.3 L Chloride Cancelled 103 Carbon Dioxide Cancelled 24 BUN Cancelled 6 Creatinine Cancelled 0.51 L Glucose Cancelled 200 H Calcium Cancelled 8.1 L Liver Function 01/24/22 01/24/22 Range/Units 07:06 07:40 Total Bilirubin Cancelled 0.6 AST Cancelled 10 L ALT Cancelled 7 Alkaline Phosphatase Cancelled 93 Albumin Cancelled 3.5 Medications Administered Current Inpatient Medications Amlodipine Besylate (Amlodipine Besylate 5 Mg Tab) 2.5 mg PO HS CLAUDIA Stop: 02/21/22 20:59 Last Admin: 01/23/22 20:36 Dose: 2.5 mg Documented by: Aspirin (Aspirin 81 Mg Ectab) 81 mg PO DAILY CLAUDIA Stop: 02/21/22 08:59 Last Admin: 01/24/22 08:07 Dose: 81 mg Documented by: Dextrose (Dextrose 50% 50 Ml Syringe) 25 - 50 ml IV UD PRN; Protocol PRN Reason: Hypoglycemia Protocol Stop: 02/20/22 20:59 Doxycycline Hyclate (Doxycycline Hyclate 100 Mg Cap) 100 mg PO BID CLAUDIA Stop: 01/29/22 15:54 Last Admin: 01/24/22 08:07 Dose: 100 mg Documented by: Fluoxetine HCl (Fluoxetine Hcl 20 Mg Cap) 40 mg PO DAILY CLAUDIA Stop: 02/21/22 08:59 Last Admin: 01/24/22 08:07 Dose: 40 mg Documented by: Glucagon (Glucagon For Inj 1 Mg Vial) 1 mg IM UD PRN; Protocol PRN Reason: Hypoglycemia Protocol Stop: 02/20/22 20:59 Glucose (Glucose 40% Gel 15 Gm Tube) 15 - 30 gm PO UD PRN; Protocol PRN Reason: Hypoglycemia Protocol Stop: 02/20/22 20:59 Glucose (Glucose 10 Tabs/Tube) 4 - 8 tabs PO UD PRN; Protocol PRN Reason: Hypoglycemia Protocol Stop: 02/20/22 20:59 Heparin Sodium (Porcine) (Heparin Sod 5,000 Unit/0.5 Ml Vial) 5,000 units SQ Q8 CLAUDIA Stop: 02/21/22 05:59 Last Admin: 01/24/22 06:22 Dose: 5,000 units Documented by: Hydromorphone HCl (Hydromorphone Inj 0.5 Mg/0.5 Ml Syr) 0.5 mg IV Q3H PRN PRN Reason: Pain Stop: 02/04/22 22:36 Promethazine HCl 12.5 mg/ (Sodium Chloride) 50.5 mls @ 202 mls/hr IV Q6H PRN PRN Reason: Nausea And Vomiting Stop: 02/20/22 22:36 Sodium Chloride (Nss 1000ml) 1,000 mls @ 100 mls/hr IV .Q10H [facility] Stop: 02/21/22 15:29 Last Admin: 01/24/22 08:06 Dose: 100 mls/hr Documented by: Potassium Phosphate 30 mmol/ (Dextrose) 510 mls @ 88 mls/hr IV ONE ONE Stop: 01/24/22 14:47 Last Admin: 01/24/22 09:31 Dose: 88 mls/hr Documented by: Insulin Aspart (Novolog Insulin Pump) 1 ea N/A ACHS [facility]; Protocol Stop: 02/23/22 07:29 Last Admin: 01/24/22 12:06 Dose: 1 ea Documented by: Insulin Aspart (Insulin Aspart 100 Units/Ml Vial) 0 units SC PRN PRN PRN Reason: Insulin Pump Refill Stop: 02/23/22 07:29 Levothyroxine Sodium (Levothyroxine Sodium 125 Mcg Tablet) 125 mcg PO DAILYBB [facility] Stop: 02/21/22 06:29 Last Admin: 01/24/22 06:22 Dose: 125 mcg Documented by: Lorazepam (Lorazepam 2 Mg/1 Ml Vial) 0.5 mg IV Q4H PRN PRN Reason: Anxiety Stop: 02/20/22 22:36 Miscellaneous (Carbohydrates For Hypoglycemia ) 15 - 30 gm PO PRN PRN PRN Reason: Hypoglycemia Treatment Stop: 02/20/22 20:59 Miscellaneous Information (Pharmacy Glycemic Mgmt Consult) 1 ea N/A UD PRN PRN Reason: Consult Stop: 02/20/22 22:31 Oxycodone HCl (Oxycodone Hcl Ir 5 Mg Tab (Immediate Release)) 5 - 10 mg PO QID PRN PRN Reason: Pain Stop: 02/04/22 22:31 Last Admin: 01/24/22 00:30 Dose: 10 mg Documented by: Pantoprazole Sodium (Pantoprazole 40 Mg Tab) 40 mg PO DAILY PRN PRN Reason: Indigestion Last Admin: 01/23/22 08:16 Dose: 40 mg Documented by: Simvastatin (Simvastatin 20 Mg Tab) 20 mg PO DAILY CLAUDIA Stop: 02/21/22 08:59 Last Admin: 01/24/22 08:07 Dose: 20 mg Documented by: Zolpidem Tartrate (Zolpidem Tartrate 10 Mg Tab) 10 mg PO HS PRN PRN Reason: insomnia Stop: 02/20/22 23:57
--- NOTE | 2022-01-24 18:03 | Electrocardiogram Report ---
Test Reason : Blood Pressure : / mmHG Vent. Rate : 092 BPM Atrial Rate : 092 BPM P-R Int : 160 ms QRS Dur : 092 ms QT Int : 398 ms P-R-T Axes : 072 042 030 degrees QTc Int : 492 ms Normal sinus rhythm Prolonged QT Abnormal ECG When compared with ECG of 21-JAN-2022 20:42, Limb lead reversal is no longer Present Nonspecific T wave abnormality, improved in Inferior leads QT has lengthened Confirmed by Miguel Tobar ([id number]) on 01/24/2022 6:03:42 PM Referred By: REFERRED SELF Confirmed By:Miguel Tobar
[2022-01-24] MEDS: amLODIPine BESYLATE 5 MG TAB PO SCH (19:38)
[2022-01-25] MEDS: SODIUM CHLORIDE 0.9% 1000ML 1,000 ML IV SCH ×2 (03:04→14:08)
[2022-01-25] MEDS: LEVOTHYROXINE SODIUM 125 MCG TABLET PO SCH (05:29)
[2022-01-25] MEDS: HEPARIN SOD 5,000 UNIT/0.5 ML VIAL SQ SCH ×2 (05:30→15:07)
[2022-01-25 07:59] LABS: BUN Creatinine Ratio 14.3 (10-20); Calcium 8.5 mg/dl (8.5-10.1); Creatinine Clr Calc Pharmacy 132.3 ml/min; Est GFR (African American) 117.7 ml/min; Est GFR (Non-African American) 101.5 ml/min; Magnesium 1.7 mg/dl (1.7-2.4); Potassium 2.8 mmol/L (3.5-5.1)
[2022-01-25 08:08] LABS: Hematocrit (blood only) 40.1 % (37-47); Hemoglobin 13.5 g/dL (12.0-16.0); Mean Corpuscular Hemoglobin 29.5 pg (25-34); Mean Corpuscular Hgb Conc 33.7 g/dL (32-36); Mean Corpuscular Volume 87.7 fL (80-100); Mean Platelet Volume 12.1 fL (7.4-10.4); Platelet Count 248 K/uL (130-400); RDW Coefficient of Variation 14.6 % (11.5-14.5); Red Blood Count 4.57 M/uL (4.2-5.4); White Blood Count 10.66 K/uL (4.8-10.8)
[2022-01-25] MEDS ORDERED: lisinopril 5 MG TAB PO ONE (08:58)
[2022-01-25] MEDS ORDERED: POTASSIUM CHLORIDE CRTAB 20 MEQ TABCR PO STA (08:58)
[2022-01-25 09:02] LABS: ALC (manual) 6.01 K/uL (1.2-3.4); ANC (manual) 3.81 K/uL (1.4-6.5); Eosinophils % (manual) 0.9 %; Lymphocytes # (manual) 6.01 K/uL (1.2-3.4); Lymphocytes % (manual) 56.4 %; Monocytes # (manual) 0.75 K/uL (0.11-0.59); Neutrophils # (manual) 3.81 K/uL (1.4-6.5); Neutrophils % (manual) 35.7 %; RBC Morphology Unremarkable
[2022-01-25] MEDS: NovoLOG INSULIN PUMP SCH ×2 (09:02→12:16)
[2022-01-25] MEDS: ASPIRIN 81 MG ECTAB PO SCH (09:04)
[2022-01-25] MEDS: FLUoxetine HCL 20 MG CAP PO SCH (09:04)
[2022-01-25] MEDS: DOXYCYCLINE HYCLATE 100 MG CAP PO SCH (09:04)
[2022-01-25] MEDS: SIMVASTATIN 20 MG TAB PO SCH (09:05)
[2022-01-25] MEDS: POTASSIUM CHLORIDE / WTR 10 MEQ/100 ML PLCT IV SCH ×2 (09:36→10:56)
--- NOTE | 2022-01-25 11:55 | Hospitalist Progress Note ---
Date of Service January 25, 2022 Assessment & Plan (1) Hyperglycemic crisis in diabetes mellitus: Plan: Type 1 diabetes Present on admission with worsening BS and SOB elevated anion gap and WBC Most recent hbA1c 12.6 Pharmacy on board for glycemic management Pt was started on Insulin drip Insulin drip was discontinued and transition to basal insulin Awaiting pump to be restarted-later on the pump pump was initiated Remains very weak and lethargic We will get PT and OT evaluation prior to discharge She is back to her insulin pump and blood sugar is reasonable Remains extremely weak and lethargic and will need PT and OT evaluation Blood sugar was noted to be on the lower side this morning but later on that was normalized She wants to go home and she was crying for home Advised to keep for another day but she did not want to Should be discharged home this afternoon if the electrolytes are okay Elevated troponin Due to demand ischemia from DKA troponin peak to 80, now treding down ECHO showed no wall motion abnormality Cardiology on board - No additional testing Continue aspirin daily Electrolytes imbalance Phosp 1.1 as of 01/23/2022 Phosphate replaced-and will recheck Will check PRP in the afternoon and if okay should be discharged home SOB Bronchitis CTA chest showed no PE. Bronchial wall thickening suggestive of bronchitis or reactive airway disease. starting on Doxycycline Continue monitor closely Remains free of any symptoms no shortness of breath No shortness of breath at rest or with exertion and she is saturating normally on room air Hypothyroidism Continue levothyroxine DVT prophylaxis. Heparin subcu Full code Admission and Anticipated Discharge Date Admission Date: January 21, 2022 Subjective 01/23/2022 The patient was seen and examined in telemetry unit She feels better since admission but is still remains very drowsy and groggy Not yet ready to be discharged Denies any abdominal pain, nausea and or vomiting, no fever and or chills and no cough and no shortness of breath 04/26/2022 The patient was seen and examined in telemetry unit She has been very weak and lethargic but a little better compared with yesterday She is back on her insulin pump Denies any other significant symptoms except weakness and tiredness 04/27/2022 The patient was seen and examined in telemetry unit She has been feeling much better and her weakness is improved She has been moving around in the room without any dizziness and/or unstable eating She wants to go home Review of Systems Review of Systems: All systems reviewed and are unremarkable except as noted below Musculoskeletal: No acute arthritis in any joint Neurologic: Alert, awake and oriented x3. No focal neurodeficit Physical Exam Physical Exam: Lying in bed comfortably Constitutional: well developed, well nourished and + obese; not ill appearing Eyes: PERRL, conjunctivae normal, anicteric sclerae ENMT: external ear and nose normal, oropharynx normal Neck: trachea midline, no thyromegaly Respiratory: no respiratory distress Auscultation: + diminished lung sounds; no crackles (Minimal crackles at the bases) Cardiovascular: Rate/Rhythm: regular rate and regular rhythm; not tachycardic Heart Sounds: normal S1 and normal S2; no murmur Extremities: no edema Gastrointestinal (Abdomen): Inspection/Auscultation: normal bowel sounds; abdomen not distended Percussion/Palpation: abdomen soft; abdomen nontender Musculoskeletal: No acute arthritis in any joint Neurologic: patellar DTR's 2+ bilat, sensation intact Psychiatric: A+Ox3, euthymic affect Lymphatic: no cervical or axillary lymphadenopathy Results & Data Results & Data ([facility]) Vital Signs (Past 12 Hours) Vital Signs Temp Pulse Pulse Resp BP BP Pulse Ox 01/25/22 11:32 37.0 C 84 18 158/87 H 95 01/25/22 07:55 36.9 C 89 18 189/98 H 92 01/25/22 06:14 67 01/25/22 02:58 36.8 C 66 20 178/77 H 94 01/25/22 00:00 74 Laboratory Results Short CBC 01/25/22 Range/Units 06:58 WBC 10.66 (4.8-10.8) K/uL Hgb 13.5 (12.0-16.0) g/dL Hct 40.1 (37-47) % Plt Count 248 (130-400) K/uL BMP 01/25/22 06:58 Sodium 139 Potassium 2.8 L Chloride 102 Carbon Dioxide 28 BUN 7 Creatinine 0.49 L Glucose 70 Calcium 8.5 Medications Administered Current Inpatient Medications Amlodipine Besylate (Amlodipine Besylate 5 Mg Tab) 5 mg PO HS CLAUDIA Stop: 02/24/22 20:59 Aspirin (Aspirin 81 Mg Ectab) 81 mg PO DAILY CLAUDIA Stop: 02/21/22 08:59 Last Admin: 01/25/22 09:04 Dose: 81 mg Documented by: Dextrose (Dextrose 50% 50 Ml Syringe) 25 - 50 ml IV UD PRN; Protocol PRN Reason: Hypoglycemia Protocol Stop: 02/20/22 20:59 Doxycycline Hyclate (Doxycycline Hyclate 100 Mg Cap) 100 mg PO BID CLAUDIA Stop: 01/29/22 15:54 Last Admin: 01/25/22 09:04 Dose: 100 mg Documented by: Fluoxetine HCl (Fluoxetine Hcl 20 Mg Cap) 40 mg PO DAILY [facility]UDIA Stop: 02/21/22 08:59 Last Admin: 01/25/22 09:04 Dose: 40 mg Documented by: Glucagon (Glucagon For Inj 1 Mg Vial) 1 mg IM UD PRN; Protocol PRN Reason: Hypoglycemia Protocol Stop: 02/20/22 20:59 Glucose (Glucose 40% Gel 15 Gm Tube) 15 - 30 gm PO UD PRN; Protocol PRN Reason: Hypoglycemia Protocol Stop: 02/20/22 20:59 Glucose (Glucose 10 Tabs/Tube) 4 - 8 tabs PO UD PRN; Protocol PRN Reason: Hypoglycemia Protocol Stop: 02/20/22 20:59 Heparin Sodium (Porcine) (Heparin Sod 5,000 Unit/0.5 Ml Vial) 5,000 units SQ Q8 [facility]IA Stop: 02/21/22 05:59 Last Admin: 01/25/22 05:30 Dose: 5,000 units Documented by: Hydromorphone HCl (Hydromorphone Inj 0.5 Mg/0.5 Ml Syr) 0.5 mg IV Q3H PRN PRN Reason: Pain Stop: 02/04/22 22:36 Promethazine HCl 12.5 mg/ (Sodium Chloride) 50.5 mls @ 202 mls/hr IV Q6H PRN PRN Reason: Nausea And Vomiting Stop: 02/20/22 22:36 Sodium Chloride (Nss 1000ml) 1,000 mls @ 100 mls/hr IV .Q10H [facility] Stop: 02/21/22 15:29 Last Admin: 01/25/22 03:04 Dose: 100 mls/hr Documented by: Insulin Aspart (Novolog Insulin Pump) 1 ea N/A ACHS [facility]; Protocol Stop: 02/23/22 07:29 Last Admin: 01/25/22 09:02 Dose: 1 ea Documented by: Insulin Aspart (Insulin Aspart 100 Units/Ml Vial) 0 units SC PRN PRN PRN Reason: Insulin Pump Refill Stop: 02/23/22 07:29 Levothyroxine Sodium (Levothyroxine Sodium 125 Mcg Tablet) 125 mcg PO DAILYBB [facility] Stop: 02/21/22 06:29 Last Admin: 01/25/22 05:29 Dose: 125 mcg Documented by: Lisinopril (Lisinopril 10 Mg Tab) 10 mg PO QAM [facility] Stop: 02/25/22 08:59 Lorazepam (Lorazepam 2 Mg/1 Ml Vial) 0.5 mg IV Q4H PRN PRN Reason: Anxiety Stop: 02/20/22 22:36 Miscellaneous (Carbohydrates For Hypoglycemia ) 15 - 30 gm PO PRN PRN PRN Reason: Hypoglycemia Treatment Stop: 02/20/22 20:59 Last Admin: 01/25/22 07:25 Dose: 15 gm Documented by: Miscellaneous Information (Pharmacy Glycemic Mgmt Consult) 1 ea N/A UD PRN PRN Reason: Consult Stop: 02/20/22 22:31 Oxycodone HCl (Oxycodone Hcl Ir 5 Mg Tab (Immediate Release)) 5 - 10 mg PO QID PRN PRN Reason: Pain Stop: 02/04/22 22:31 Last Admin: 01/24/22 00:30 Dose: 10 mg Documented by: Pantoprazole Sodium (Pantoprazole 40 Mg Tab) 40 mg PO DAILY PRN PRN Reason: Indigestion Last Admin: 01/23/22 08:16 Dose: 40 mg Documented by: Simvastatin (Simvastatin 20 Mg Tab) 20 mg PO DAILY [facility] Stop: 02/21/22 08:59 Last Admin: 01/25/22 09:05 Dose: 20 mg Documented by: Zolpidem Tartrate (Zolpidem Tartrate 10 Mg Tab) 10 mg PO HS PRN PRN Reason: insomnia Stop: 02/20/22 23:57
[2022-01-25 14:45] LABS: BUN Creatinine Ratio 14.7 (10-20); Calcium 8.9 mg/dl (8.5-10.1); Creatinine Clr Calc Pharmacy 86.5 ml/min; Est GFR (African American) 96.3 ml/min; Est GFR (Non-African American) 83.1 ml/min; Potassium 4.2 mmol/L (3.5-5.1)
--- NOTE | 2022-01-25 17:21 | Discharge Summary ---
Date of Service January 25, 2022 Admission HPI Per Admitting Provider History obtained from patient and records. Medical history significant for DM 1 on insulin pump, hypertension, hypothyroidism, hyperlipidemia, anxiety/mood disorder. Patient woke up this morning not feeling well. Blood sugar noted to be 600s which is unusual for her. Usual blood sugar at home 1 10-1 80s as per patient. No recent changes in insulin pump settings. Subsequent shortness of breath without chest pain or cough complaints. Achy headache symptoms with nausea. No abdominal pain. Patient brought to the ER for evaluation. IVF and IV insulin administered for DKA. Zosyn administered for possible infection. 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 Admission Exam Per Admitting Provider Physical Exam: GENERAL: Uncomfortable, respiratory distress, morbidly obese SKIN: Normal color, warm HEENT: Abie palpebral conjunctivae, no ptosis, dry buccal mucosa NECK : Supple, short neck, no tenderness CHEST : Decreased breath sounds, no tenderness HEART : Tachycardic, no obvious murmurs ABDOMEN: Some distention, nontender EXTREMITIES : Minimal LE swelling, no LE tenderness, no other conspicuous deformities noted NEUROLOGIC : Coherent, no facial asymmetry, no other gross focality Principal Diagnosis DKA, type 1 diabetes, hypertension Discharge Exam Lying in bed comfortably Constitutional well developed, well nourished and + obese; not ill appearing Eyes PERRL, conjunctivae normal, anicteric sclerae ENMT external ear and nose normal, oropharynx normal Neck trachea midline, no thyromegaly Respiratory no respiratory distress Auscultation: + diminished lung sounds; no crackles (Minimal crackles at the bases) Cardiovascular Rate/Rhythm: regular rate and regular rhythm; not tachycardic Heart Sounds: normal S1 and normal S2; no murmur Extremities: no edema Gastrointestinal (Abdomen) Inspection/Auscultation: normal bowel sounds; abdomen not distended Percussion/Palpation: abdomen soft; abdomen nontender Neurologic patellar DTR's 2+ bilat, sensation intact Psychiatric A+Ox3, euthymic affect Lymphatic no cervical or axillary lymphadenopathy Discharge Data Allergies Allergy/AdvReac Type Severity Reaction Status Date / Time acetaminophen Allergy Severe Difficulty Verified 01/21/22 21:10 Breathing dextromethorphan Allergy Severe Difficulty Verified 01/21/22 21:10 Breathing doxylamine Allergy Severe Difficulty Verified 01/21/22 21:10 Breathing pseudoephedrine Allergy Severe Difficulty Verified 01/21/22 21:10 Breathing glyburide Allergy Intermediate RASH Verified 01/21/22 21:10 tetanus toxoid, adsorbed Allergy Intermediate painful Verified 01/21/22 21:10 joints Ethanol Allergy Severe Difficulty Uncoded 01/21/22 21:10 Breathing Consultations 01/21/22 21:07 ED Decision to Admit Stat 01/22/22 08:09 Consult Cardiology Routine Ordered Studies 01/21/22 20:25 CT head/brain wo con Stat 01/22/22 04:21 CT angio chest PE protocol Urgent Hospital Course (1) Hyperglycemic crisis in diabetes mellitus: Type 1 diabetes Present on admission with worsening BS and SOB elevated anion gap and WBC Most recent hbA1c 12.6 Pharmacy on board for glycemic management Pt was started on Insulin drip Insulin drip was discontinued and transition to basal insulin Awaiting pump to be restarted-later on the pump pump was initiated Remains very weak and lethargic We will get PT and OT evaluation prior to discharge She is back to her insulin pump and blood sugar is reasonable Remains extremely weak and lethargic and will need PT and OT evaluation Blood sugar was noted to be on the lower side this morning but later on that was normalized She wants to go home and she was crying for home Advised to keep for another day but she did not want to Should be discharged home this afternoon if the electrolytes are okay Elevated troponin Due to demand ischemia from DKA troponin peak to 80, now treding down ECHO showed no wall motion abnormality Cardiology on board - No additional testing Continue aspirin daily Electrolytes imbalance Phosp 1.1 as of 01/23/2022 Phosphate replaced-and will recheck Will check PRP in the afternoon and if okay should be discharged home SOB Bronchitis CTA chest showed no PE. Bronchial wall thickening suggestive of bronchitis or reactive airway disease. starting on Doxycycline Continue monitor closely Remains free of any symptoms no shortness of breath No shortness of breath at rest or with exertion and she is saturating normally on room air Hypothyroidism Continue levothyroxine DVT prophylaxis. Heparin subcu Full code Total Time Total Time Spent Total Time Spent (In Minutes): 35 minutes Discharge Plan Discharge Items Patient Disposition: Home - Self-Care Reason For Visit: HTN CRISIS, DKA Discharge Diagnosis: DKA, type 1 diabetes, hypertension Condition on Discharge: Fair Activity: Resume your previous activity Non-emergency contact: Primary Care Provider Call non-emergency contact if: you have any medication questions and your symptoms worsen Follow-up/Referrals: Oswaldo Saxena MD [Primary Care Provider] - (Your doctor so will will call you with an appointment within 1 week) Diet: Carb Count or DM1 Addtl Attending Provider Instructions: Please take precautions to avoid fall Take your medications as advised Continue with the insulin pump Please keep appointment with your healthcare provider Pending Studies at Discharge: No Stand-Alone Forms: My [facility] Smoking Cessation Medications and DC Order Prescriptions: New doxycycline hyclate 100 mg Capsule 100 mg PO BID 3 Days Qty: 6 RF: 0 amlodipine [Norvasc] 5 mg Tablet 5 mg PO HS 30 Days Qty: 30 RF: 0 potassium chloride 20 mEq tablet extended release 20 meq PO DAILY Qty: 30 RF: 0 Continued (DME) Dexcom G6 Digital Media Associate Misc See Rx Instructions .ROUTE .MEDSUPPLY Qty: 9 RF: 4 (DME) Dexcom G6 Transmitter Device See Rx Instructions .ROUTE .MEDSUPPLY Qty: 1 RF: 3 (DME) OneTouch Ultra Test Strip See Rx Instructions .Route Qty: 400 RF: 3 simvastatin 20 mg tablet 20 mg PO DAILY Qty: 90 RF: 3 aspirin [Adult Low Dose Aspirin] 81 mg tablet,delayed release (DR/EC) 81 mg PO DAILY RF: 0 diphenhydramine HCl 25 mg capsule 25 mg PO HS PRN (Reason: Sleep) RF: 0 fluocinonide 0.05 % solution 1 applic topical DAILY RF: 0 fluoxetine 40 mg capsule 40 mg PO DAILY RF: 0 hydrochlorothiazide 12.5 mg tablet 12.5 mg PO DAILY RF: 0 levothyroxine 125 mcg tablet 125 mcg PO DAILY RF: 0 lisinopril 5 mg tablet 5 mg PO DAILY RF: 0 lansoprazole 30 mg capsule,delayed release(DR/EC) 30 mg PO DAILY PRN (Reason: Indigestion) RF: 0 zolpidem 10 mg tablet 10 mg PO HS RF: 0 insulin aspart U-100 [Novolog U-100 Insulin aspart] 100 unit/mL solution 0 unit continuous subcutaneous infusion DAILY RF: 0 Discharge Orders: Discharge Order (Routine); Ordered 01/25/22 Ordered By: Ciaran Bose Admission Data Admit Date/Time: 01/21/22 22:22 Attending Provider: Ciaran Bose Admit Provider: Ciaran Bose Primary Care Provider: Oswaldo Saxena Other Providers: Shabbir Garcia ; Ciaran Bose ; Fidel Khan Other Interventions: Discharge Summary Assessment (RN) Last Done: 01/25/22 15:35
[2022-01-25] MEDS ORDERED: amLODIPine BESYLATE 5 MG TAB PO SCH (21:00)
[2022-01-26] MEDS ORDERED: lisinopril 10 MG TAB PO SCH (09:00)
== END 2022-01-25 17:37 | disposition home or self-care (01) | DRG 638 ==
LOC: ED 19:35 → SUATTDRO 22:22 → 2S 22:22
DX: E03.9 Hypothyroidism, unspecified; Z79.890 Hormone replacement therapy; Z88.8 Allergy status to other drugs, medicaments and biological substances; Z79.82 Long term (current) use of aspirin; Z96.41 Presence of insulin pump (external) (internal); F41.9 Anxiety disorder, unspecified; I16.0 Hypertensive urgency; Z79.899 Other long term (current) drug therapy; N17.9 Acute kidney failure, unspecified; Z88.6 Allergy status to analgesic agent; J40 Bronchitis, not specified as acute or chronic; E83.39 Other disorders of phosphorus metabolism; Z88.7 Allergy status to serum and vaccine; I24.8 Other forms of acute ischemic heart disease; E10.10 Type 1 diabetes mellitus with ketoacidosis without coma; E78.5 Hyperlipidemia, unspecified

== ENCOUNTER 2022-05-06 20:28 | Inpatient (IN) ==
[2022-05-06] MEDS ORDERED: ACETAMINOPHEN 1,000 MG/100 ML VIAL IV STA (20:35)
[2022-05-06] MEDS ORDERED: FAMOTIDINE 20MG IV PUSH 20 MG/5 ML SYR IV STA (20:35)
[2022-05-06] MEDS ORDERED: ONDANSETRON INJ 2 MG/ML 2 ML VIAL IV STA (20:35)
[2022-05-06] MEDS ORDERED: SODIUM CHLORIDE 0.9% 1000ML 2,000 ML IV ONE (20:35)
--- NOTE | 2022-05-06 20:55 | Emergency Department Note ---
Impression & Plan DKA (diabetic ketoacidosis), High anion gap metabolic acidosis, Presence of insulin pump, Dehydration ED Provider Note NAME: KENZIE BAUM AGE: 66 SEX: F ARRIVES VIA: Ambulance INFORMANT: Patient ED PROVIDER(S): Rahul Stevenson MD CHIEF COMPLAINT: YANES, nausea, hyperglycemia. PLAN: Disposition: Admit MEDICAL DECISION MAKING: The patient is a pleasant 66-year-old woman with a past medical history of insulin-dependent type 1 diabetes with insulin pump, prior history of DKA who presents to the emergency department via EMS for headache, nausea that developed today in the setting of noticing her blood sugars rising. EMS suspects her pump tubing became obstructed. The patient was unaware of any malfunctioning of her insulin pump. Prior to today she reports she was feeling well normal state of health denies fevers, chills, cough, congestion, GI or symptoms. She reports her blood sugars were in the 140s yesterday. The patient is uncomfortable but no acute distress, afebrile with stable vital signs. She appears clinically dry. She has no focal neurologic deficits. Abdomen is benign EKG without overt acute ischemia. CXR negative for acute cardiopulmonary process per my preliminary review. WBC 13K nonspecific. H/H 16/48.4 increased from prior consistent with patient's clinically dry appearance. Platelets within normal limits. Chemistry demonstrates high anion gap metabolic acidosis with anion gap 26 and bicarbonate of 9. Sodium is 127 however corrects to 135 for glucose of 596. Osmolality is 320 consistent with the patient's hypovolemic appearance. LFTs are unremarkable. Lipase is not elevated. UA without convincing evidence of infection. Ketones are 4+ consistent with the patient's presentation of DKA. 19 RNA, CHAPIN test was negative. Treatment was initiated with IV fluid hydration upon arrival. Upon reevaluation the patient did feel improved following hydration as well as Pepcid, Zofran, APAP. Following initial 2L of normal saline, insulin drip was ordered as well as maintenance IV fluids of 1/2NSS with 20 M EQ KCl. Patient agrees with plan for admission for further management. Case was discussed with Dr. Velasco, [facility] hospitalist, who will evaluate the patient for admission. Triage Nursing notes reviewed and agree them. Prior medical records reviewed Vital Signs: reviewed and remarkable for tachycardia. Differential diagnosis: Gastroenteritis, food borne illness, infections, appendicitis, diverticulitis, inflammatory bowel disease, obstruction, GI bleed, biliary pathology, volvulus, as well as other pathologies. ER treatment provided: See below. Diagnostics interpreted by me: ECG: Sinus tachycardia, 106 bpm, no ectopy, no overt ST elevation or depression, QTC 454, QRS 84 Cardiac Monitoring: An order for continuous cardiac monitoring was placed and demonstrated Sinus tachycardia, 106 bpm, no ectopy. Laboratory studies: See below Imaging studies: See below Consultation(s): Case was discussed with Dr. Velasco, [facility] hospitalist, who will evaluate the patient for admission. HPI: The patient is a pleasant 66-year-old woman with a past medical history of insulin-dependent type 1 diabetes with insulin pump, prior history of DKA who presents to the emergency department via EMS for headache, nausea that developed today in the setting of noticing her blood sugars rising. EMS suspects her pump tubing became obstructed. The patient was unaware of any malfunctioning of her insulin pump. Prior to today she reports she was feeling well normal state of health denies fevers, chills, cough, congestion, GI or symptoms. She reports her blood sugars were in the 140s yesterday. ROS: See above HPI for pertinent positives & negatives. A total of 10 systems reviewed and were otherwise negative. VITALS:See Below PHYSICAL EXAMINATION: GENERAL: Awake, alert, uncomfortable-appearing, in no distress HENT: Normocephalic, atraumatic. Oropharynx with dry mucous membranes and otherwise unremarkable. EYES: Normal conjunctiva. Sclera non-icteric. EOMI. No nystamgus. PEARRL. NECK: Supple. No nuchal rigidity. FROM. No JVD. RESPIRATORY: Clear to auscultation. CARDIAC: Regular rate, normal rhythm. Extremities warm and well perfused. Pulses equal. ABDOMEN: Soft, non-distended. No tenderness to palpation. No rebound or guarding. No masses. RECTAL: Deferred. MUSCULOSKELETAL: Chest examination reveals no tenderness. The back is symmetrical on inspection without obvious abnormality. There is no CVA tenderness to palpation. No joint edema. LOWER EXTREMITIES: Calves are equal size bilaterally and non-tender. No edema. No discoloration. NEURO: Normal sensorium. No sensory or motor deficits noted. 5/5 strength and SILT x 4 extremities. Cerebellar function intact including [id number], alternating palms. SKIN: No rash or jaundice noted. ED COURSE: Critical Care: I have personally spent greater than 65 minutes of critical care time in the direct management of this patient. This includes bedside care, interpretation of diagnostic studies, and testing, discussion with consultants, patient, and family members, and other required patient management activities. This 65 minutes is in excess of all separately billable procedures. Rahul Stevenson MD Past Med/Surg History Medical History DKA (diabetic ketoacidosis) GERD (gastroesophageal reflux disease) Mixed hyperlipidemia Presence of insulin pump Uncontrolled type 1 diabetes mellitus with hyperglycemia Surgical History History of cholecystectomy History of hysterectomy History of shoulder surgery History of tonsillectomy Family History Grandmother (Maternal) Diabetes Mother Hypertension Heart disease Grandmother (Paternal) Diabetes Social History Smoking Status: Never smoker Second Hand Exposure: No; Hx Alcohol Use: No Hx Substance Use: No Preferred Language: Bulgarian Communication Ability: Effective Personal Service Representative Required: No Beliefs That Will Affect Care: None Current Living Situation: Alone Feels Safe at Home: Yes Assistive Devices: None Allergies Allergies Allergy/AdvReac Type Severity Reaction Status Date / Time dextromethorphan Allergy Severe Difficulty Verified 05/06/22 22:23 Breathing doxylamine Allergy Severe Difficulty Verified 05/06/22 22:23 Breathing pseudoephedrine Allergy Severe Difficulty Verified 05/06/22 22:23 Breathing glyburide Allergy Intermediate RASH Verified 05/06/22 22:23 tetanus toxoid, adsorbed Allergy Intermediate painful Verified 05/06/22 22:23 joints Ethanol Allergy Severe Difficulty Uncoded 05/06/22 22:23 Breathing Home Meds Home Medications Medication Instructions Recorded Confirmed aspirin 81 mg tablet,delayed 81 mg PO DAILY 01/29/21 05/06/22 release (Adult Low Dose Aspirin) diphenhydramine HCl 25 mg capsule 25 mg PO HS PRN Sleep 01/29/21 05/06/22 fluocinonide 0.05 % topical 1 applic topical DAILY 01/29/21 05/06/22 solution fluoxetine 40 mg capsule 40 mg PO DAILY 01/29/21 05/06/22 hydrochlorothiazide 12.5 mg tablet 12.5 mg PO DAILY 01/29/21 05/06/22 levothyroxine 125 mcg tablet 125 mcg PO DAILY 01/29/21 05/06/22 lisinopril 5 mg tablet 5 mg PO DAILY 01/29/21 05/06/22 lansoprazole 30 mg capsule,delayed 30 mg PO DAILYBB 06/03/21 05/06/22 release zolpidem 10 mg tablet 10 mg PO HS PRN Sleep 06/03/21 05/06/22 simvastatin 10 mg tablet 10 mg PO DAILY 05/06/22 05/06/22 trazodone 50 mg tablet 50 mg PO HS 05/06/22 05/06/22 Previous Rx's Medication Instructions Recorded Dexcom G6 Scaffolder (blood-glucose #9 ea 03/27/21 meter,continuous) Dexcom G6 Transmitter #1 ea 03/27/21 (blood-glucose transmitter) OneTouch Ultra Test (blood sugar #400 ea 07/10/21 diagnostic) blood-glucose meter (OneTouch #1 ea 03/20/22 Ultra2 Meter kit) insulin aspart U-100 100 unit/mL See Rx Instructions continuous 04/24/22 subcutaneous solution (Novolog subcutaneous infusion DAILY #90 mL U-100 Insulin aspart) Results & Data (ED) Vital Signs Vital Signs - 24 hr 05/06/22 20:50 05/06/22 21:33 05/06/22 21:36 Temperature 36.5 C Temperature Source Oral Pulse Rate 114 H 113 H Pulse Rate [Apical] 110 H Respiratory Rate 20 21 24 Respiratory Effort / Characteristics Non-Labored Spontaneous Non-Labored Spontaneous Respiratory Depth Normal Normal Blood Pressure 151/87 H Blood Pressure [Right Arm] 162/71 H Blood Pressure Mean 108 Blood Pressure Mean [Right Arm] 101 Pulse Oximetry 97 97 96 Oxygen Delivery Method Room Air Room Air Room Air Sepsis New/Unexplained Change in Mental Status N/A Sepsis Action Taken by Nursing No Action Required Laboratory Data Attestation: I reviewed the patient's lab results. Result diagrams: 05/06/22 20:58 05/06/22 20:58 Lab Results 05/06/22 05/06/22 05/06/22 Range/Units 20:34 20:58 20:58 WBC 13.03 H (4.8-10.8) K/ul RBC 5.23 H (3.93-5.22) M/uL Hgb 16.0 (12.0-16.0) g/dl Hct 48.4 H (34.1-44.9) % MCV 92.5 (80.0-100.0) fL MCH 30.6 (25.0-34.0) pg MCHC 33.1 (32.0-36.0) g/dL RDW Std Deviation 47.8 H (36.4-46.3) fL RDW Coeff of Rossi 14.0 (11.5-14.5) % Plt Count 343 (130-400) K/uL MPV 11.6 (9.4-12.3) fL Immature Gran % (Auto) 0.4 % Neut % (Auto) 68.1 % Lymph % (Auto) 23.6 % Storey % (Auto) 6.9 % Eos % (Auto) 0.2 % Baso % (Auto) 0.8 % Neut # (Auto) 8.89 H (1.4-6.5) K/uL Lymph # (Auto) 3.07 (1.2-3.4) K/uL Storey # (Auto) 0.90 H (0.24-0.82) K/uL Eos # (Auto) 0.02 (0-0.50) K/uL Baso # (Auto) 0.10 (0-0.2) K/uL Immature Gran # (Auto) 0.05 H (0.00-0.02) K/uL VBG pH (7.36-7.41) VBG pCO2 (38-50) mmHg VBG pO2 mmHg VBG HCO3 mmol/L VBG O2 Saturation % VBG Base Excess mEq/L Sodium 127 L (136-145) mmol/L Potassium 4.5 (3.5-5.1) mmol/L Chloride 92 L (98-107) mmol/L Carbon Dioxide 9 L* (21-32) mmol/L Anion Gap 26 H (3-11) BUN 19 (6-23) mg/dl Creatinine 1.08 (0.6-1.2) mg/dl Est Cr Clr Drug Dosing 54.3 ml/min Est GFR ( Amer) 61.9 ml/min Est GFR (Non-Af Amer) 53.5 ml/min BUN/Creatinine Ratio 17.6 (10-20) Glucose 596 H* (70-99(Fasting)) mg/dl POC Glucose 572 H* (70-99) mg/dl Osmolality (280-300) mOsm/kg Calcium 9.6 (8.5-10.1) mg/dl Phosphorus 3.8 (2.5-4.9) mg/dl Magnesium 2.0 (1.7-2.4) mg/dl Total Bilirubin 0.6 (0.2-1.0) mg/dl AST 9 L (13-39) U/L ALT 8 (7-52) U/L Alkaline Phosphatase 126 H (34-104) U/L Total Protein 7.6 (6.0-8.3) gm/dl Albumin 4.4 (3.4-5.0) gm/dl Globulin 3.2 (2.5-4.0) gm/dl Albumin/Globulin Ratio 1.4 (0.9-2) Lipase 24 (11-82) U/L Urine Color Urine Appearance (Clear) Urine pH (4.5-7.5) Ur Specific Granger (1.000-1.030) Urine Protein (Negative) Urine Glucose (UA) (Negative) Urine Ketones (Negative) Urine Blood (Negative) Urine Nitrite (Negative) Urine Bilirubin (Negative) Urine Urobilinogen (Negative) Ur Leukocyte Esterase (Negative) SARS-CoV-2, RNA, NAAT (NEGATIVE) 05/06/22 05/06/22 05/06/22 Range/Units 20:58 20:58 21:20 WBC (4.8-10.8) K/ul RBC (3.93-5.22) M/uL Hgb (12.0-16.0) g/dl Hct (34.1-44.9) % MCV (80.0-100.0) fL MCH (25.0-34.0) pg MCHC (32.0-36.0) g/dL RDW Std Deviation (36.4-46.3) fL RDW Coeff of Rossi (11.5-14.5) % Plt Count (130-400) K/uL MPV (9.4-12.3) fL Immature Gran % (Auto) % Neut % (Auto) % Lymph % (Auto) % Storey % (Auto) % Eos % (Auto) % Baso % (Auto) % Neut # (Auto) (1.4-6.5) K/uL Lymph # (Auto) (1.2-3.4) K/uL Storey # (Auto) (0.24-0.82) K/uL Eos # (Auto) (0-0.50) K/uL Baso # (Auto) (0-0.2) K/uL Immature Gran # (Auto) (0.00-0.02) K/uL VBG pH 7.24 L (7.36-7.41) VBG pCO2 25 L (38-50) mmHg VBG pO2 43 mmHg VBG HCO3 11 mmol/L VBG O2 Saturation 77.1 % VBG Base Excess -14.9 mEq/L Sodium (136-145) mmol/L Potassium (3.5-5.1) mmol/L Chloride (98-107) mmol/L Carbon Dioxide (21-32) mmol/L Anion Gap (3-11) BUN (6-23) mg/dl Creatinine (0.6-1.2) mg/dl Est Cr Clr Drug Dosing ml/min Est GFR ( Amer) ml/min Est GFR (Non-Af Amer) ml/min BUN/Creatinine Ratio (10-20) Glucose (70-99(Fasting)) mg/dl POC Glucose (70-99) mg/dl Osmolality 320 H (280-300) mOsm/kg Calcium (8.5-10.1) mg/dl Phosphorus (2.5-4.9) mg/dl Magnesium (1.7-2.4) mg/dl Total Bilirubin (0.2-1.0) mg/dl AST (13-39) U/L ALT (7-52) U/L Alkaline Phosphatase (34-104) U/L Total Protein (6.0-8.3) gm/dl Albumin (3.4-5.0) gm/dl Globulin (2.5-4.0) gm/dl Albumin/Globulin Ratio (0.9-2) Lipase (11-82) U/L Urine Color Yellow Urine Appearance Clear (Clear) Urine pH 5.0 (4.5-7.5) Ur Specific Granger 1.032 H (1.000-1.030) Urine Protein Negative (Negative) Urine Glucose (UA) 3+ H (Negative) Urine Ketones 4+ H (Negative) Urine Blood Negative (Negative) Urine Nitrite Negative (Negative) Urine Bilirubin Negative (Negative) Urine Urobilinogen Negative (Negative) Ur Leukocyte Esterase Negative (Negative) SARS-CoV-2, RNA, NAAT (NEGATIVE) 05/06/22 05/06/22 05/06/22 Range/Units 22:26 23:44 Unknown WBC (4.8-10.8) K/ul RBC (3.93-5.22) M/uL Hgb (12.0-16.0) g/dl Hct (34.1-44.9) % MCV (80.0-100.0) fL MCH (25.0-34.0) pg MCHC (32.0-36.0) g/dL RDW Std Deviation (36.4-46.3) fL RDW Coeff of Rossi (11.5-14.5) % Plt Count (130-400) K/uL MPV (9.4-12.3) fL Immature Gran % (Auto) % Neut % (Auto) % Lymph % (Auto) % Storey % (Auto) % Eos % (Auto) % Baso % (Auto) % Neut # (Auto) (1.4-6.5) K/uL Lymph # (Auto) (1.2-3.4) K/uL Storey # (Auto) (0.24-0.82) K/uL Eos # (Auto) (0-0.50) K/uL Baso # (Auto) (0-0.2) K/uL Immature Gran # (Auto) (0.00-0.02) K/uL VBG pH (7.36-7.41) VBG pCO2 (38-50) mmHg VBG pO2 mmHg VBG HCO3 mmol/L VBG O2 Saturation % VBG Base Excess mEq/L Sodium (136-145) mmol/L Potassium (3.5-5.1) mmol/L Chloride (98-107) mmol/L Carbon Dioxide (21-32) mmol/L Anion Gap (3-11) BUN (6-23) mg/dl Creatinine (0.6-1.2) mg/dl Est Cr Clr Drug Dosing ml/min Est GFR ( Amer) ml/min Est GFR (Non-Af Amer) ml/min BUN/Creatinine Ratio (10-20) Glucose (70-99(Fasting)) mg/dl POC Glucose 567 H* 386 H* (70-99) mg/dl Osmolality (280-300) mOsm/kg Calcium (8.5-10.1) mg/dl Phosphorus (2.5-4.9) mg/dl Magnesium (1.7-2.4) mg/dl Total Bilirubin (0.2-1.0) mg/dl AST (13-39) U/L ALT (7-52) U/L Alkaline Phosphatase (34-104) U/L Total Protein (6.0-8.3) gm/dl Albumin (3.4-5.0) gm/dl Globulin (2.5-4.0) gm/dl Albumin/Globulin Ratio (0.9-2) Lipase (11-82) U/L Urine Color Urine Appearance (Clear) Urine pH (4.5-7.5) Ur Specific Granger (1.000-1.030) Urine Protein (Negative) Urine Glucose (UA) (Negative) Urine Ketones (Negative) Urine Blood (Negative) Urine Nitrite (Negative) Urine Bilirubin (Negative) Urine Urobilinogen (Negative) Ur Leukocyte Esterase (Negative) SARS-CoV-2, RNA, NAAT NEGATIVE (NEGATIVE) Administered Medications Insulin Human Regular 250 (units/ Sodium Chloride) 250 mls @ 9 mls/hr IV .Q24H [facility]; Protocol Stop: 06/05/22 21:59 Last Admin: 05/06/22 22:29 Dose: 9 units/hr, 9 mls/hr Documented By: YULY Co-signed By: VADNA Discontinued Medications Sodium Chloride (Nss 1000ml) 2,000 mls @ 999 mls/hr IV .Q2H1M ONE Stop: 05/06/22 22:35 Last Admin: 05/06/22 21:24 Dose: 999 mls/hr Documented By: YULY Acetaminophen (Ofirmev) 1,000 mg in 100 mls @ 400 mls/hr IV NOW STA Stop: 05/06/22 20:49 Last Infusion: 05/06/22 22:28 Dose: 0 mls/hr Documented By: Admin: 05/06/22 21:25 Dose: 400 mls/hr Documented By: YULY Famotidine (Pepcid 20mg Iv Push) 20 mg in 5 mls @ 2.5 mls/min IV NOW STA Stop: 05/06/22 20:36 Last Admin: 05/06/22 21:19 Dose: 2.5 mls/min Documented By: YULY Insulin Human Regular (Novolin-R Bolus From Bag) 9 units IV ONE ONE Stop: 05/06/22 22:16 Last Admin: 05/06/22 22:32 Dose: 9 units Documented By: YULY Co-signed By: VANDA Ondansetron HCl (Ondansetron Inj 2 Mg/Ml 2 Ml Vial) 4 mg IV NOW STA Stop: 05/06/22 20:36 Last Admin: 05/06/22 21:22 Dose: 4 mg Documented By: YULY Imaging Data My Impression: CXR: No acute cardiopulmonary process per my preliminary review. Discharge Plan Visit Data Chief Complaint: Hyperglycemia Stated Complaint: hyperglycemia ED Provider: Rahul Stevenson Discharge Problem: DKA (diabetic ketoacidosis), High anion gap metabolic acidosis, Presence of insulin pump, Dehydration Forms Stand Alone Forms: My [facility] Prescriptions Prescriptions: No Action (DME) Dexcom G6 Scaffolder Misc See Rx Instructions .ROUTE .MEDSUPPLY Qty: 9 4RF Rx Instructions: Use with dexcom g6 system E10.65 (DME) Dexcom G6 Transmitter Device See Rx Instructions .ROUTE .MEDSUPPLY Qty: 1 3RF Rx Instructions: Change every 90 days E10.65 (DME) OneTouch Ultra Test Strip See Rx Instructions .Route Qty: 400 3RF Rx Instructions: Test four times daily (DME) blood-glucose meter [OneTouch Ultra2 Meter] Kit See Rx Instructions .Route Qty: 1 0RF Rx Instructions: Test blood sugars 4 times a day insulin aspart U-100 [Novolog U-100 Insulin aspart] 100 unit/mL solution See Rx Instructions continuous subcutaneous infusion DAILY Qty: 90 0RF Rx Instructions: via continuous subcutaneous infusion daily; TDD 100 units aspirin [Adult Low Dose Aspirin] 81 mg tablet,delayed release (DR/EC) 81 mg PO DAILY diphenhydramine HCl 25 mg capsule 25 mg PO HS PRN (Reason: Sleep) Rx Instructions: 25 mg PO at bedtime PRN; fluocinonide 0.05 % solution 1 applic topical DAILY fluoxetine 40 mg capsule 40 mg PO DAILY hydrochlorothiazide 12.5 mg tablet 12.5 mg PO DAILY levothyroxine 125 mcg tablet 125 mcg PO DAILY lisinopril 5 mg tablet 5 mg PO DAILY lansoprazole 30 mg capsule,delayed release(DR/EC) 30 mg PO DAILYBB zolpidem 10 mg tablet 10 mg PO HS PRN (Reason: Sleep) trazodone 50 mg tablet 50 mg PO HS simvastatin 10 mg tablet 10 mg PO DAILY Referrals Referrals: Oswaldo Saxena MD [Primary Care Provider] -
[2022-05-06 21:12] LABS: Basophils % (auto) 0.8 %; Eosinophils # (auto) 0.02 K/uL (0-0.50); Eosinophils % (auto) 0.2 %; Hematocrit (blood only) 48.4 % (34.1-44.9); Immature Granulocytes # (auto) 0.05 K/uL (0.00-0.02); Immature Granulocytes % (auto) 0.4 %; Lymphocytes # (auto) 3.07 K/uL (1.2-3.4); Lymphocytes % (auto) 23.6 %; Mean Corpuscular Hemoglobin 30.6 pg (25.0-34.0); Mean Corpuscular Hgb Conc 33.1 g/dL (32.0-36.0); Mean Corpuscular Volume 92.5 fL (80.0-100.0); Mean Platelet Volume 11.6 fL (9.4-12.3); Monocytes % (auto) 6.9 %; Neutrophils # (auto) 8.89 K/uL (1.4-6.5); Neutrophils % (auto) 68.1 %; Platelet Count 343 K/uL (130-400); RDW Standard Deviation 47.8 fL (36.4-46.3); Red Blood Count 5.23 M/uL (3.93-5.22); White Blood Count 13.03 K/ul (4.8-10.8)
[2022-05-06 21:43] LABS: Base Excess VBG -14.9 mEq/L; HCO3 VBG 11 mmol/L; Oxygen Saturation VBG 77.1 %; PCO2 VBG 25 mmHg (38-50); PO2 VBG 43 mmHg; pH VBG 7.24 (7.36-7.41)
[2022-05-06 21:48] LABS: Albumin Globulin Ratio 1.4 (0.9-2); Albumin Level 4.4 gm/dl (3.4-5.0); BUN Creatinine Ratio 17.6 (10-20); Bilirubin,Total 0.6 mg/dl (0.2-1.0); Calcium 9.6 mg/dl (8.5-10.1); Creatinine Clr Calc Pharmacy 54.3 ml/min; Est GFR (African American) 61.9 ml/min; Est GFR (Non-African American) 53.5 ml/min; Globulin 3.2 gm/dl (2.5-4.0); Phosphorus 3.8 mg/dl (2.5-4.9); Potassium 4.5 mmol/L (3.5-5.1); Total Protein 7.6 gm/dl (6.0-8.3)
[2022-05-06] MEDS ORDERED: DKA GOAL RANGE 150-250 mg/dl ONE (21:56)
[2022-05-06] MEDS ORDERED: PHARMACY GLYCEMIC MGMT CONSULT PRN (21:56)
[2022-05-06] MEDS ORDERED: STAT IV Infusion **Titration per Protocol STA (21:56)
[2022-05-06] MEDS ORDERED: INSULIN REGULAR 250 UNITS in SODIUM CHLORIDE 0.9% 247.5 ML IV SCH (22:00)
[2022-05-06 22:14] LABS: Appearance Urine Clear (Clear); Bilirubin Urine Negative (Negative); Blood Urine Negative (Negative); Color Urine Yellow; Glucose Urine UA 3+ (Negative); Ketones Urine 4+ (Negative); Leukocyte Esterase Urine Negative (Negative); Nitrite Urine Negative (Negative); Protein Urine Negative (Negative); Specific Gravity Urine 1.032 (1.000-1.030); Urobilinogen Urine Negative (Negative)
[2022-05-06] MEDS ORDERED: NovoLIN-R BOLUS FROM BAG IV ONE (22:15)
[2022-05-07] MEDS ORDERED: ONDANSETRON INJ 2 MG/ML 2 ML VIAL IV PRN (00:47)
[2022-05-07] MEDS ORDERED: DKA GOAL RANGE 150-250 mg/dl ONE (00:47)
[2022-05-07] MEDS ORDERED: PHARMACY GLYCEMIC MGMT CONSULT PRN (00:47)
[2022-05-07] MEDS ORDERED: INSULIN REGULAR 250 UNITS in SODIUM CHLORIDE 0.9% 247.5 ML IV SCH (00:47)
[2022-05-07] MEDS ORDERED: NITROGLYCERIN SL 0.4 MG/TAB TAB SL PRN (00:47)
[2022-05-07] MEDS ORDERED: STAT IV Infusion **Titration per Protocol STA (00:47)
[2022-05-07] MEDS ORDERED: PENDING 1/2NSS+20mEq KCL IVF SCH (00:47)
[2022-05-07] MEDS ORDERED: DC ALL PREVIOUSLY ORDERED DIABETES MEDS ONE (00:47)
[2022-05-07] MEDS ORDERED: ACETAMINOPHEN 325 MG TAB PO PRN (00:47)
[2022-05-07] MEDS ORDERED: diphenhydrAMINE Capsule 25 MG CAP PO PRN (00:47)
[2022-05-07] MEDS ORDERED: SODIUM CHLOR 0.45% + 20MEQ KCL 20 MEQ/1,000 ML BAG IV SCH ×2 (01:00→10:15)
[2022-05-07] MEDS ORDERED: PENDING D5 1/2NS+20mEq KCL IVF SCH (02:00)
[2022-05-07 02:16] LABS: BUN Creatinine Ratio 16.3 (10-20); Creatinine Clr Calc Pharmacy 59.9 ml/min; Est GFR (African American) 69.7 ml/min; Est GFR (Non-African American) 60.1 ml/min; Magnesium 1.8 mg/dl (1.7-2.4); Phosphorus 2.1 mg/dl (2.5-4.9); Potassium 3.4 mmol/L (3.5-5.1)
[2022-05-07] MEDS ORDERED: DEXTROSE 50% 50 ML SYRINGE IV PRN (02:45)
[2022-05-07] MEDS ORDERED: GLUCOSE 10 TAB/TUBE PO PRN (02:45)
[2022-05-07] MEDS ORDERED: GLUCAGON FOR INJ 1 MG VIAL IM PRN (02:45)
[2022-05-07] MEDS ORDERED: GLUCOSE 40% GEL 15 GM TUBE PO PRN (02:45)
[2022-05-07] MEDS ORDERED: CARBOHYDRATES FOR HYPOGLYCEMIA PO PRN (02:45)
--- NOTE | 2022-05-07 02:45 | History and Physical Report ---
DATE OF ADMISSION: 05/07/2022. CHIEF COMPLAINT: DKA. HISTORY OF PRESENT ILLNESS: A 66-year-old female with past medical history significant for type 1 diabetes, states she is on insulin pump for the last 15 years; hyperlipidemia; hypothyroidism; hypertension; obesity; GERD; dermatitis, presents with DKA. The patient says sugars are running decently but today she felt dizzy, weak, and nauseous and checked her sugars, they are running very high, so she came to the ER and found to be in DKA. She has some mild headache. No neck pain, no blurred visions, no earache, no runny nose, no sore throat, no cough, no fevers, no chills.Says she is eating and drinking well. Denies any chest pain. No shortness of breath, no abdominal pain. Normal bowel and bladder movements. Resting comfortably and hemodynamically stable. ALLERGIES: DEXTROMETHORPHAN, DOXYLAMINE, PSEUDOEPHEDRINE, GLYBURIDE, TETANUS TOXOID, ETHANOL. PAST MEDICAL HISTORY: As mentioned above. PAST SURGICAL HISTORY: Right breast cyst puncture and drainage, tonsillectomy, cholecystectomy, shoulder surgery, total abdominal hysterectomy with removal of tubes. MEDICATIONS: The patient is on aspirin 81 mg p.o. daily, Benadryl 25 mg p.o. at bedtime p.r.n., fluocinonide topical solution topical daily, fluoxetine 40 mg p.o. daily, hydrochlorothiazide 12.5 mg p.o. daily, insulin pump, lansoprazole 30 mg p.o. daily, levothyroxine 125 mcg p.o. daily, lisinopril 5 mg p.o. daily, simvastatin 10 mg p.o. daily, trazodone 50 mg p.o. at bedtime, Ambien 10 mg p.o. at bedtime p.r.n. FAMILY HISTORY: Significant for father has diabetes, paternal grandmother has diabetes. SOCIAL HISTORY: Lives with her grandson. No smoking, no alcohol, no drug use. REVIEW OF SYSTEMS: As per HPI. Rest of review of systems is negative. PHYSICAL EXAMINATION: GENERAL: The patient is of moderate build, not in acute distress. VITAL SIGNS: Temperature 37.4, pulse 101, respiratory rate 14, blood pressure 135/68, oxygen 99% on room air. HEENT: Pupils equal, round and reactive to light. Oral mucosa moist. NECK: No JVD, no neck masses. CARDIOVASCULAR: S1 and S2 heard. Regular rate and rhythm. No murmur, no gallop. RESPIRATORY SYSTEM: Normal AP diameter. No accessory muscle use. No wheezing, no crackles. ABDOMEN: Soft, bowel sounds present, nontender, no distention. CENTRAL NERVOUS SYSTEM: Cranial nerves II-XII grossly intact, nonfocal. EXTREMITIES: No edema, no erythema. LABORATORY DATA: WBC 13, hemoglobin 16, hematocrit 48.4, platelets 343. Venous blood gas, pH of 7.24, pCO2 of 25, pO2 of 43, bicarbonate 11, oxygen 77%. Sodium 127, potassium 4.5, chloride 92, bicarbonate 9, anion gap 26, BUN 19, creatinine 1.08, serum glucose 596. Osmolality 320, calcium 9.6, phosphorus 3.8, magnesium 2, total bilirubin 0.6, AST 9, ALT 8, alkaline phosphatase 126, total protein 7.6. Lipase 24. Urinalysis, +3 glucose, +4 ketones. SARS-CoV-2 rapid test negative. IMAGING DATA: Chest x-ray, no acute findings. EKG: Sinus tachycardia at a rate of 106, no acute ST changes seen. ASSESSMENT AND PLAN: This is a 66-year-old female who presents with diabetic ketoacidosis. 1. Diabetic ketoacidosis: Questionable malfunction of insulin pump, Urinalysis okay. EKG seems okay. Will follow the troponins. Started on diabetic ketoacidosis protocol with aggressive IV fluids per protocol, insulin drip per protocol, labs as per protocol. Glycemic pharmacy consult. Diabetic dietitian consult. Closely monitor in the tele floor. Follow the labs closely. 2. Hyponatremia: Mostly pseudohyponatremia from hyperglycemia. Will follow the repeat labs. 3. Hyperlipidemia: Continue statin. 4. Gastroesophageal reflux disease: Continue lansoprazole. 5. Hypertension: Holding lisinopril, hydrochlorothiazide. Will monitor the blood pressure. 6. Hypothyroidism: On Synthroid. 7. Deep venous thrombosis prophylaxis: Placed on Lovenox. DISPOSITION: Closely monitor in the tele floor. Level 1 full code. Expect to discharge home and follow with family doctor. Job ID: [id number] [facility]
[2022-05-07] MEDS: D5W AND 1/2NSS + 20MEQ KCL 20 MEQ/1,000 ML BAG IV SCH ×2 (04:35→09:23)
[2022-05-07 05:48] LABS: BUN Creatinine Ratio 15.6 (10-20); Creatinine Clr Calc Pharmacy 65.2 ml/min; Est GFR (African American) 77.2 ml/min; Est GFR (Non-African American) 66.6 ml/min; Potassium 3.4 mmol/L (3.5-5.1)
[2022-05-07 05:51] LABS: Magnesium 1.7 mg/dl (1.7-2.4); Phosphorus 1.5 mg/dl (2.5-4.9)
[2022-05-07] MEDS: PANTOprazole 40 MG TAB PO SCH (06:52)
[2022-05-07] MEDS: LEVOTHYROXINE SODIUM 125 MCG TABLET PO SCH (06:52)
[2022-05-07] MEDS: ENOXAPARIN INJ 40 MG/0.4 ML SYR SQ SCH ×2 (06:53→17:17)
[2022-05-07] MEDS ORDERED: INSULIN ASPART PER UNIT SC SCH ×2 (07:30)
--- NOTE | 2022-05-07 07:59 | XRay Report ---
XR chest 1V portable CLINICAL HISTORY: ap, nausea/vomiting TECHNIQUE: Single frontal radiograph of the chest was obtained. Comparison: Comparison is made to chest radiograph 01/21/2022 FINDINGS: No lines and tubes are seen. The cardiomediastinal silhouette is normal. The lungs are clear. No evid ence of pleural effusion or pneumothorax. IMPRESSION: No acute chest disease. ACT 112: Negative or not required by law. Electronically signed by: Jd Pena M.D. 05/07/2022 7:58 AM
[2022-05-07] MEDS ORDERED: POTASSIUM PHOS 3 MMOL/1 ML INFUSION IV ONE (08:03)
[2022-05-07] MEDS ORDERED: POTASSIUM PHOSPHATE 21 MMOL in SODIUM CHLORIDE 0.9% 500 ML IV ONE (08:15)
[2022-05-07] MEDS ORDERED: LANTUS PER UNIT CHARGE SQ ONE (08:15)
[2022-05-07] MEDS: FLUoxetine HCL 20 MG CAP PO SCH (08:31)
[2022-05-07] MEDS: SIMVASTATIN 10 MG TAB PO SCH (08:31)
[2022-05-07] MEDS: ASPIRIN 81 MG ECTAB PO SCH (08:31)
[2022-05-07] MEDS: lisinopril 5 MG TAB PO SCH (09:22)
[2022-05-07] MEDS: PENDING 1/2NSS+20mEq KCL IVF SCH (09:28)
--- NOTE | 2022-05-07 09:31 | Electrocardiogram Report ---
Test Reason : Blood Pressure : / mmHG Vent. Rate : 106 BPM Atrial Rate : 106 BPM P-R Int : 150 ms QRS Dur : 084 ms QT Int : 342 ms P-R-T Axes : 069 030 -01 degrees QTc Int : 454 ms Sinus tachycardia Nondiagnostic inferior Q waves Poor R wave progression, consider anterior MN vs. lead placement vs. LVH Abnormal ECG When compared with ECG of 23-JAN-2022 09:57, No significant change Confirmed by Angelo Mariee ([id number]) on 05/07/2022 9:31:32 AM Referred By: REFERRED SELF Confirmed By:Angelo Mariee
[2022-05-07 09:56] LABS: BUN Creatinine Ratio 15.8 (10-20); Calcium 8.7 mg/dl (8.5-10.1); Creatinine Clr Calc Pharmacy 77.2 ml/min; Est GFR (African American) 94.7 ml/min; Est GFR (Non-African American) 81.7 ml/min; Potassium 3.1 mmol/L (3.5-5.1)
[2022-05-07 10:29] LABS: Magnesium 1.6 mg/dl (1.7-2.4); Phosphorus 1.5 mg/dl (2.5-4.9)
[2022-05-07] MEDS: INSULIN ASPART PER UNIT SC SCH ×3 (11:32→20:53)
[2022-05-07] MEDS: MAGNESIUM OXIDE 400 MG TAB PO SCH ×2 (11:32→20:53)
[2022-05-07 12:51] LABS: Estimated Average Glucose 341 mg/dl; Hemoglobin A1C 13.5 % (4.5-5.6)
--- NOTE | 2022-05-07 12:52 | Pharmacy Report ---
Pharmacy Glycemic Short Note 2 - Date of Service May 07, 2022 - Glycemic Short BSG Results (Last 24 hours): 05/06/22 05/06/22 05/06/22 20:34 20:58 22:26 Glucose 596 H* POC Glucose 572 H* 567 H* 05/06/22 05/07/22 05/07/22 23:44 00:52 01:33 Glucose 340 H* POC Glucose 386 H* 322 H* 05/07/22 05/07/22 05/07/22 02:24 03:29 04:33 Glucose POC Glucose 299 H 222 H 146 H 05/07/22 05/07/22 05/07/22 04:53 05:16 06:34 Glucose 169 H POC Glucose 159 H 135 H 05/07/22 05/07/22 05/07/22 07:39 08:44 08:45 Glucose 124 H POC Glucose 119 H 120 H 05/07/22 05/07/22 09:48 11:22 Glucose POC Glucose 139 H 131 H OUTPATIENT ANTIDIABETIC REGIMEN: * Per last hospitalization: * Novolog via [employer] T-slim insulin pump * Basal rate: 2.5 units/hr (total = 60 units/day basal) * Bolus: ICR 3, CF 10, Target 110 * HbA1c = 13.5% (05/07/22) ASSESSMENT: * 66 yo F admitted overnight secondary to DKA. Pharmacy has been consulted to assist with inpatient glycemic management and transition to subcutaneous insulin. Patient with a history of type 1 diabetes on an insulin pump for many years. This is the second DKA admission since January of 2022 due to pump malfunction. certified lactation educator consulted. A1c in August 2021 was 8.8%, now up to 13.5%. Clearly some disconnect between patient and insulin pump. Spoke with patient this morning. Cannot remember insulin pump settings but said they have not changed for some time. Follows with Dr. Parker's office but has not been seen since August 2021. Insulin pump was so could not confirm settings. Requested patient have a family member or friend provide all insulin pump supplies so we can restart the pump prior to discharge. * Admission labs: BSG 596, AG 26, CO2 9, pH 7.24, 4+ ketones in urine. Started on insulin drip at 9 units/hr along with an initial 9 unit IV bolus. Received a 2 L NS bolus in ED then started on 1/2 NS + 20 KCl at 200 mL/hr. * BSGs improved quickly: [phone] mg/dL. Dextrose was added to fluids once BSGs were in goal range of 150-250 mg/dL. * Insulin calculator had RN hold drip for BSG of 119 mg/dL this AM. Gave the patient 50 units of basal insulin at that time which was a 20% reduction in her home dose and patient tolerated this well during previous admission. Drip remained off and repeat labs around 0900 were: BSG 124, AG 9, CO2 20, pH 7.39. Insulin drip was discontinued following those labs. Spoke with attending and changed fluids to 1/2 NS + 20 KCl x 1 bag and ordered diet which patient is now tolerating. Potassium, magnesium and phosphorus all being replaced. * Will utilize basal-bolus insulin until patient can provide pump supplies. May need to transition to shorter acting basal insulin such as NPH if pump will not be restarted until patient returns home. PLAN FOR INPATIENT GLYCEMIC CONTROL: * Discontinued insulin drip this morning * Basal insulin * Lantus 50 units SC x 1 this AM - will reassess tomorrow AM * Bolus insulin * NovoLog per scale ACHS or Q6hrs while NPO * Goal Range: Low 110 mg/dL - High 140 mg/dL * Correction Factor: 8 mg/dL/unit * Nutritional / Prandial insulin per carb ratio of 1 unit per 3 grams CHO consumed
[2022-05-07 16:26] LABS: Phosphorus 2.6 mg/dl (2.5-4.9)
[2022-05-07 16:27] LABS: BUN Creatinine Ratio 12.4 (10-20); Calcium 8.2 mg/dl (8.5-10.1); Creatinine Clr Calc Pharmacy 65.9 ml/min; Est GFR (African American) 78.3 ml/min; Est GFR (Non-African American) 67.5 ml/min; Magnesium 1.6 mg/dl (1.7-2.4); Potassium 3.5 mmol/L (3.5-5.1)
--- NOTE | 2022-05-07 17:02 | Hospitalist Progress Note ---
Date of Service May 07, 2022 Assessment & Plan (1) DKA (diabetic ketoacidosis): Plan: Patient is a 66 yr female who presents with diabetic ketoacidosis. DKA Questionable malfunction of insulin pump Anion gap metabolic acidosis --CXR: No acute process --UA not suggestive of UTI IV insulin transition to SQ as per DKA protocol Continue IV fluid Appreciate glycemic pharmacist help diabetic educator consulted Monitor BG, electrolytes Hypokalemia Hypophosphatemia Hypomagnesemia Replace electrolytes as needed Hyponatremia Pseudohyponatremia from hyperglycemia Monitor Hyperlipidemia: Continue statin GERD Continue PPI Hypertension: lisinopril, hydrochlorothiazide held Resume as able Monitor Hypothyroidism: Continue Levothyroxine DVT Px: Lovenox SQ Code Status Full Code Admission and Anticipated Discharge Date Admission Date: May 07, 2022 Subjective Patient is seen and examined at bedside Nausea much improved Tolerating diet Reports insomnia which is chronic Denies any chest pain, shortness of breath, dizziness, abdominal pain Review of Systems Review of Systems: All systems reviewed & are unremarkable except as noted in Subjective Physical Exam Physical Exam: Physical Exam: Vitals signs as noted above General Appearance:Obese, no apparent distress Head: normocephalic, Atraumatic Eyes: normal inspection, EOMI Neck: supple, Trachea midline Respiratory/Chest: Normal breath sounds, CTA, No accessory muscle use Cardiovascular: S1, S2, No murmur Abdomen/GI:Soft, Non tender, Bowel sounds present Extremities/Musculoskeletal:normal inspection, Trace edema Neurologic/Psych:AAOX3, grossly no focal neurological deficits Skin: normal color, warm Results & Data Results & Data ([facility]) Vital Signs (Past 12 Hours) Vital Signs Temp Pulse Pulse Resp BP Pulse Ox O2 Del Method 05/07/22 11:44 36.7 C 90 18 133/71 97 Room Air 05/07/22 08:00 36.8 C 85 18 160/70 H 93 Room Air 05/07/22 05:58 96 H 05/07/22 05:36 37.4 C 94 H 16 156/81 H 97 Room Air Laboratory Results Short CBC 05/06/22 Range/Units 20:58 WBC 13.03 H (4.8-10.8) K/ul Hgb 16.0 (12.0-16.0) g/dl Hct 48.4 H (34.1-44.9) % Plt Count 343 (130-400) K/uL BMP 05/06/22 05/07/22 05/07/22 20:58 01:33 04:53 Sodium 127 L 130 L 133 L Potassium 4.5 3.4 L D 3.4 L Chloride 92 L 99 104 Carbon Dioxide 9 L* 15 L 17 L BUN 19 16 14 Creatinine 1.08 0.98 0.90 Glucose 596 H* 340 H* 169 H Calcium 9.6 9.0 9.0 05/07/22 05/07/22 08:45 15:30 Sodium 133 L 133 L Potassium 3.1 L 3.5 Chloride 104 104 Carbon Dioxide 20 L 19 L BUN 12 11 Creatinine 0.76 0.89 Glucose 124 H 219 H Calcium 8.7 8.2 L Liver Function 05/06/22 Range/Units 20:58 Total Bilirubin 0.6 (0.2-1.0) mg/dl AST 9 L (13-39) U/L ALT 8 (7-52) U/L Alkaline Phosphatase 126 H (34-104) U/L Albumin 4.4 (3.4-5.0) gm/dl Urine 05/06/22 Range/Units 21:20 Urine Color Yellow Urine Appearance Clear (Clear) Urine pH 5.0 (4.5-7.5) Ur Specific [place] 1.032 H (1.000-1.030) Urine Protein Negative (Negative) Urine Glucose (UA) 3+ H (Negative)
[2022-05-07 20:50] LABS: Anion Gap 8 (3-11); Blood Urea Nitrogen 13 mg/dl (6-23); Calcium 8.4 mg/dl (8.5-10.1); Carbon Dioxide 19 mmol/L (21-32); Chloride 105 mmol/L (98-107); Creatinine Clr Calc Pharmacy 63.1 ml/min; Est GFR (African American) 74.2 ml/min; Glucose 179 mg/dl (70-99(Fasting)); Magnesium 1.7 mg/dl (1.7-2.4); Phosphorus 2.3 mg/dl (2.5-4.9); Sodium 132 mmol/L (136-145)
[2022-05-07] MEDS: traZODone HCL 50 MG TAB PO SCH (20:53)
[2022-05-07] MEDS: MELATONIN 3 MG TAB PO PRN (23:14)
[2022-05-07 23:41] LABS: BUN Creatinine Ratio 14.6 (10-20); Calcium 8.6 mg/dl (8.5-10.1); Creatinine Clr Calc Pharmacy 71.6 ml/min; Est GFR (African American) 86.4 ml/min; Est GFR (Non-African American) 74.6 ml/min; Magnesium 1.7 mg/dl (1.7-2.4); Potassium 3.3 mmol/L (3.5-5.1)
[2022-05-08] MEDS ORDERED: POTASSIUM CHLORIDE CRTAB 20 MEQ TABCR PO STA (00:06)
[2022-05-08 04:31] LABS: BUN Creatinine Ratio 16.7 (10-20); Calcium 8.7 mg/dl (8.5-10.1); Creatinine Clr Calc Pharmacy 81.5 ml/min; Est GFR (African American) 101.1 ml/min; Est GFR (Non-African American) 87.3 ml/min; Hematocrit (blood only) 37.5 % (34.1-44.9); Hemoglobin 12.4 g/dl (12.0-16.0); Magnesium 1.9 mg/dl (1.7-2.4); Mean Corpuscular Hemoglobin 30.2 pg (25.0-34.0); Mean Corpuscular Hgb Conc 33.1 g/dL (32.0-36.0); Mean Corpuscular Volume 91.2 fL (80.0-100.0); Mean Platelet Volume 11.4 fL (9.4-12.3); Phosphorus 2.9 mg/dl (2.5-4.9); Platelet Count 243 K/uL (130-400); Potassium 3.4 mmol/L (3.5-5.1); RDW Standard Deviation 47.2 fL (36.4-46.3); Red Blood Count 4.11 M/uL (3.93-5.22)
[2022-05-08] MEDS: ENOXAPARIN INJ 40 MG/0.4 ML SYR SQ SCH ×2 (06:30→16:58)
[2022-05-08] MEDS: LEVOTHYROXINE SODIUM 125 MCG TABLET PO SCH (06:30)
[2022-05-08] MEDS: PANTOprazole 40 MG TAB PO SCH (06:31)
[2022-05-08] MEDS: MAGNESIUM OXIDE 400 MG TAB PO SCH ×2 (08:20→20:54)
[2022-05-08] MEDS: SIMVASTATIN 10 MG TAB PO SCH (08:20)
[2022-05-08] MEDS: FLUoxetine HCL 20 MG CAP PO SCH (08:20)
[2022-05-08] MEDS: lisinopril 5 MG TAB PO SCH (08:21)
[2022-05-08] MEDS: ASPIRIN 81 MG ECTAB PO SCH (08:21)
[2022-05-08] MEDS: INSULIN ASPART PER UNIT SC SCH ×4 (08:29→21:03)
[2022-05-08] MEDS ORDERED: LANTUS PER UNIT CHARGE SQ SCH (09:00)
--- NOTE | 2022-05-08 09:58 | Pharmacy Report ---
Pharmacy Glycemic Short Note 2 - Date of Service May 08, 2022 - Glycemic Short BSG Results (Last 24 hours): 05/07/22 05/07/22 05/07/22 08:45 09:48 11:22 Glucose 124 H POC Glucose 139 H 131 H 05/07/22 05/07/22 05/07/22 15:30 16:22 19:52 Glucose 219 H POC Glucose 212 H 167 H 05/07/22 05/07/22 05/08/22 19:53 23:04 03:55 Glucose 179 H 127 H 178 H POC Glucose 05/08/22 07:25 Glucose POC Glucose 229 H OUTPATIENT ANTIDIABETIC REGIMEN: * Per last hospitalization: * Novolog via [employer] T-slim insulin pump * Basal rate: 2.5 units/hr (total = 60 units/day basal) * Bolus: ICR 3, CF 10, Target 110 * HbA1c = 13.5% (05/07/22) ASSESSMENT: 05/08 * Patient was successfully transitioned off the insulin drip yesterday * AG and Bicarb within normal limits on AM chemistry * Fasting BSG 178-229 this AM with 50 units basal on board. Somewhat elevated but overall acceptable at this point. May need upward titration tomorrow is SQ basal to continue * Post-prandial BSGs acceptable yesterday using current CF/CR doses. Will continue with the same for now * Per certified adapted physical educator assessment, the patient's insulin pump was likely not working correctly. The patient called [employer] and they are reportedly sending her a new pump. Pumps are usually overnight delivery and may arrive today. However patient would be dependent on her grandson to bring the pump to the ospital and she had concerns that he may not be able to find all the our pump supplies in order to resume the pump while hospitalized. Will plan on continuing SQ basal/bolus regimen at this time given uncertainty of coordinating pump initiation while hospitalized. Hedge Fund Principal aware of plan. 05/07 * 66 yo F admitted overnight secondary to DKA. Pharmacy has been consulted to assist with inpatient glycemic management and transition to subcutaneous insulin. Patient with a history of type 1 diabetes on an insulin pump for many years. This is the second DKA admission since January of 2022 due to pump malfunction. patient educator consulted. A1c in August 2021 was 8.8%, now up to 13.5%. Clearly some disconnect between patient and insulin pump. Spoke with patient this morning. Cannot remember insulin pump settings but said they have not changed for some time. Follows with Dr. Parker's office but has not been seen since August 2021. Insulin pump was so could not confirm settings. Requested patient have a family member or friend provide all insulin pump supplies so we can restart the pump prior to discharge. * Admission labs: BSG 596, AG 26, CO2 9, pH 7.24, 4+ ketones in urine. Started on insulin drip at 9 units/hr along with an initial 9 unit IV bolus. Received a 2 L NS bolus in ED then started on 1/2 NS + 20 KCl at 200 mL/hr. * BSGs improved quickly: [phone] mg/dL. Dextrose was added to fluids once BSGs were in goal range of 150-250 mg/dL. * Insulin calculator had RN hold drip for BSG of 119 mg/dL this AM. Gave the patient 50 units of basal insulin at that time which was a 20% reduction in her home dose and patient tolerated this well during previous admission. Drip remained off and repeat labs around 0900 were: BSG 124, AG 9, CO2 20, pH 7.39. Insulin drip was discontinued following those labs. Spoke with attending and changed fluids to 1/2 NS + 20 KCl x 1 bag and ordered diet which patient is now tolerating. Potassium, magnesium and phosphorus all being replaced. * Will utilize basal-bolus insulin until patient can provide pump supplies. May need to transition to shorter acting basal insulin such as NPH if pump will not be restarted until patient returns home. PLAN FOR INPATIENT GLYCEMIC CONTROL: * Basal insulin * Lantus 50 units SC Q AM. * Bolus insulin * NovoLog per scale ACHS or Q6hrs while NPO * Goal Range: Low 110 mg/dL - High 140 mg/dL * Correction Factor: 8 mg/dL/unit * Nutritional / Prandial insulin per carb ratio of 1 unit per 3 grams CHO consumed
--- NOTE | 2022-05-08 15:36 | Hospitalist Progress Note ---
Date of Service May 08, 2022 Assessment & Plan (1) DKA (diabetic ketoacidosis): Plan: Patient is a 66 yr female who presents with diabetic ketoacidosis. DKA Likely due to malfunction of insulin pump Anion gap metabolic acidosis --CXR: No acute process --UA not suggestive of UTI IV insulin transition to SQ as per DKA protocol IV fluids discontinued Appreciate glycemic pharmacist help clinical educator consulted Monitor BG, electrolytes New Insulin pump to be delivered prior to discharge Hypokalemia Hypophosphatemia Hypomagnesemia Replace electrolytes as needed Hyponatremia Pseudohyponatremia from hyperglycemia Monitor Hyperlipidemia: Continue statin GERD Continue PPI Hypertension: lisinopril, hydrochlorothiazide held Resume as able Monitor Hypothyroidism: Continue Levothyroxine DVT Px: Lovenox SQ Code Status Full Code Admission and Anticipated Discharge Date Admission Date: May 07, 2022 Subjective Patient is seen and examined at bedside No new complaints Nausea resolved Denies any chest pain, shortness of breath, dizziness, abdominal pain Review of Systems Review of Systems: All systems reviewed & are unremarkable except as noted in Subjective Physical Exam Physical Exam: Physical Exam: Vitals signs as noted above General Appearance:Obese, no apparent distress Head: normocephalic, Atraumatic Eyes: normal inspection, EOMI Neck: supple, Trachea midline Respiratory/Chest: Normal breath sounds, CTA, No accessory muscle use Cardiovascular: S1, S2, No murmur Abdomen/GI:Soft, Non tender, Bowel sounds present Extremities/Musculoskeletal:normal inspection, Trace edema Neurologic/Psych:AAOX3, grossly no focal neurological deficits Skin: normal color, warm Results & Data Results & Data ([facility]) Vital Signs (Past 12 Hours) Vital Signs Temp Pulse Resp BP Pulse Ox O2 Del Method 05/08/22 11:53 36.7 C 98 H 18 127/66 96 Room Air 05/08/22 07:41 36.6 C 78 16 138/89 96 Room Air 05/08/22 04:00 36.7 C 70 20 142/68 H 95 Room Air Laboratory Results Short CBC 05/08/22 Range/Units 03:55 WBC 7.90 (4.8-10.8) K/ul Hgb 12.4 D (12.0-16.0) g/dl Hct 37.5 (34.1-44.9) % Plt Count 243 (130-400) K/uL [facility] 05/07/22 05/07/22 05/07/22 15:30 19:53 23:04 Sodium 133 L 132 L 133 L Potassium 3.5 TNP 3.3 L Chloride 104 105 105 Carbon Dioxide 19 L 19 L 20 L BUN 11 13 12 Creatinine 0.89 0.93 0.82 Glucose 219 H 179 H 127 H Calcium 8.2 L 8.4 L 8.6 05/08/22 03:55 Sodium 135 L Potassium 3.4 L Chloride 106 Carbon Dioxide 21 BUN 12 Creatinine 0.72 Glucose 178 H Calcium 8.7
[2022-05-08] MEDS: traZODone HCL 50 MG TAB PO SCH (20:54)
[2022-05-08] MEDS: MELATONIN 3 MG TAB PO PRN (23:00)
[2022-05-09 05:37] LABS: BUN Creatinine Ratio 22.4 (10-20); Calcium 8.7 mg/dl (8.5-10.1); Creatinine Clr Calc Pharmacy 88.8 ml/min; Est GFR (African American) 106.2 ml/min; Est GFR (Non-African American) 91.6 ml/min; Magnesium 1.9 mg/dl (1.7-2.4); Phosphorus 3.2 mg/dl (2.5-4.9); Potassium 3.3 mmol/L (3.5-5.1)
[2022-05-09] MEDS: PANTOprazole 40 MG TAB PO SCH (06:32)
[2022-05-09] MEDS: LEVOTHYROXINE SODIUM 125 MCG TABLET PO SCH (06:32)
[2022-05-09] MEDS: ENOXAPARIN INJ 40 MG/0.4 ML SYR SQ SCH ×2 (06:32→16:46)
[2022-05-09] MEDS: INSULIN ASPART PER UNIT SC SCH ×4 (08:02→21:07)
[2022-05-09] MEDS: lisinopril 5 MG TAB PO SCH (08:03)
[2022-05-09] MEDS: MAGNESIUM OXIDE 400 MG TAB PO SCH ×2 (08:03→21:08)
[2022-05-09] MEDS: ASPIRIN 81 MG ECTAB PO SCH (08:03)
[2022-05-09] MEDS: FLUoxetine HCL 20 MG CAP PO SCH (08:03)
[2022-05-09] MEDS: SIMVASTATIN 10 MG TAB PO SCH (08:03)
[2022-05-09] MEDS ORDERED: POTASSIUM CHLORIDE CRTAB 20 MEQ TABCR PO ONE (08:56)
[2022-05-09] MEDS ORDERED: NovoLIN-N (NPH) PER UNIT CHARGE SQ ONE ×3 (09:45→21:00)
--- NOTE | 2022-05-09 10:42 | Pharmacy Report ---
Pharmacy Glycemic Short Note 2 - Date of Service May 09, 2022 - Glycemic Short BSG Results (Last 24 hours): 05/08/22 05/08/22 05/08/22 03:55 11:25 16:21 Glucose 178 H POC Glucose 243 H 104 H 05/08/22 05/09/22 05/09/22 20:56 04:40 07:25 Glucose 186 H POC Glucose 187 H 187 H OUTPATIENT ANTIDIABETIC REGIMEN: * Per last hospitalization: * Novolog via [employer] T-slim insulin pump * Basal rate: 2.5 units/hr (total = 60 units/day basal) * Bolus: ICR 3, CF 10, Target 110 * HbA1c = 13.5% (05/07/22) ASSESSMENT: 05/09 * 144 units SQ insulin given over last 24 hrs, BSGs mostly less than 200 over last 24 hrs which is acceptable * Provider would like patient to begin insulin pump prior to discharge however pump has not yet arrived. New pump was to arrive last evening however grandson has not yet brought pump or supplies to the hospital. Madyson stated she believes he will likely bring these this afternoon. Will given NPH this AM as it has been 24 hrs since last dose basal insulin given. NPH will have ~12 hr duration and allow her to resume the pump at usual settings when it arrives this afternoon. IF THE PUMP AND SUPPLIES DO NOT ARRIVE THIS AFTERNOON, WILL NEED TO GIVE ADDITIONAL NPH 05/08 * Patient was successfully transitioned off the insulin drip yesterday * AG and Bicarb within normal limits on AM chemistry * Fasting BSG 178-229 this AM with 50 units basal on board. Somewhat elevated but overall acceptable at this point. May need upward titration tomorrow is SQ basal to continue * Post-prandial BSGs acceptable yesterday using current CF/CR doses. Will continue with the same for now * Per clinical trial educator assessment, the patient's insulin pump was likely not working correctly. The patient called [employer] and they are reportedly sending her a new pump. Pumps are usually overnight delivery and may arrive today. However patient would be dependent on her grandson to bring the pump to the hospital and she had concerns that he may not be able to find all the our pump supplies in order to resume the pump while hospitalized. Will plan on continuing SQ basal/bolus regimen at this time given uncertainty of coordinating pump initiation while hospitalized. Ingot Caster aware of plan. 05/07 * 66 yo F admitted overnight secondary to DKA. Pharmacy has been consulted to assist with inpatient glycemic management and transition to subcutaneous insulin. Patient with a history of type 1 diabetes on an insulin pump for many years. This is the second DKA admission since January of 2022 due to pump malfunction. hospice educator consulted. A1c in August 2021 was 8.8%, now up to 13.5%. Clearly some disconnect between patient and insulin pump. Spoke with patient this morning. Cannot remember insulin pump settings but said they have not changed for some time. Follows with Dr. Parker's office but has not been seen since August 2021. Insulin pump was so could not confirm settings. Requested patient have a family member or friend provide all insulin pump supplies so we can restart the pump prior to discharge. * Admission labs: BSG 596, AG 26, CO2 9, pH 7.24, 4+ ketones in urine. Started on insulin drip at 9 units/hr along with an initial 9 unit IV bolus. Received a 2 L NS bolus in ED then started on 1/2 NS + 20 KCl at 200 mL/hr. * BSGs improved quickly: [phone] mg/dL. Dextrose was added to fluids once BSGs were in goal range of 150-250 mg/dL. * Insulin calculator had RN hold drip for BSG of 119 mg/dL this AM. Gave the patient 50 units of basal insulin at that time which was a 20% reduction in her home dose and patient tolerated this well during previous admission. Drip remained off and repeat labs around 0900 were: BSG 124, AG 9, CO2 20, pH 7.39. Insulin drip was discontinued following those labs. Spoke with attending and changed fluids to 1/2 NS + 20 KCl x 1 bag and ordered diet which patient is now tolerating. Potassium, magnesium and phosphorus all being replaced. * Will utilize basal-bolus insulin until patient can provide pump supplies. May need to transition to shorter acting basal insulin such as NPH if pump will not be restarted until patient returns home. PLAN FOR INPATIENT GLYCEMIC CONTROL: * Basal insulin * NPH 30 units SC this AM. If insulin pump cannot be resumed this afternoon will give 30 units NPH with dinner. * Bolus insulin * NovoLog per scale ACHS or Q6hrs while NPO * Goal Range: Low 110 mg/dL - High 140 mg/dL * Correction Factor: 8 mg/dL/unit * Nutritional / Prandial insulin per carb ratio of 1 unit per 2.5 grams CHO consumed with breakfast. Will only use CR of 4 with lunch due to NPH peak. Further carb coverage per patient's insulin pump settings. If insulin pump not provided will resume CR 3 with dinner.
--- NOTE | 2022-05-09 18:25 | Hospitalist Progress Note ---
Date of Service May 09, 2022 Assessment & Plan (1) DKA (diabetic ketoacidosis): Plan: Patient is a 66 yr female who presents with diabetic ketoacidosis. DKA Likely due to malfunction of insulin pump Anion gap metabolic acidosis --CXR: No acute process --UA not suggestive of UTI IV insulin transition to SQ as per DKA protocol IV fluids discontinued Appreciate glycemic pharmacist help nurse informatics educator consulted Monitor BG, electrolytes New Insulin pump to be delivered prior to discharge Continue current management Hypokalemia Hypophosphatemia Hypomagnesemia Replace electrolytes as needed Hyponatremia Pseudohyponatremia from hyperglycemia Monitor Hyperlipidemia: Continue statin GERD Continue PPI Hypertension: lisinopril, hydrochlorothiazide held Resume as able Monitor Hypothyroidism: Continue Levothyroxine DVT Px: Lovenox SQ Code Status Full Code Admission and Anticipated Discharge Date Admission Date: May 07, 2022 Subjective Patient is seen and examined at bedside Doing well Denies any chest pain, shortness of breath, dizziness, abdominal pain Offers no complaints Review of Systems Review of Systems: All systems reviewed & are unremarkable except as noted in Subjective Physical Exam Physical Exam: Physical Exam: Vitals signs as noted above General Appearance:Obese, no apparent distress Head: normocephalic, Atraumatic Eyes: normal inspection, EOMI Neck: supple, Trachea midline Respiratory/Chest: Normal breath sounds, CTA, No accessory muscle use Cardiovascular: S1, S2, No murmur Abdomen/GI:Soft, Non tender, Bowel sounds present Extremities/Musculoskeletal:normal inspection, Trace edema Neurologic/Psych:AAOX3, grossly no focal neurological deficits Skin: normal color, warm Results & Data Results & Data ([facility]) Vital Signs (Past 12 Hours) Vital Signs Temp Pulse Resp BP Pulse Ox O2 Del Method 05/09/22 16:31 36.7 C 74 16 127/66 95 Room Air 05/09/22 12:00 36.8 C 79 18 115/68 96 Room Air 05/09/22 08:10 36.8 C 72 14 145/79 H 96 Room Air Laboratory Results [facility] 05/07/22 05/09/22 08:45 04:40 Sodium 133 L 137 Potassium 3.1 L 3.3 L Chloride 104 106 Carbon Dioxide 20 L 24 BUN 12 15 Creatinine 0.76 0.67 Glucose 124 H 186 H Calcium 8.7 8.7
[2022-05-09] MEDS: traZODone HCL 50 MG TAB PO SCH (21:08)
[2022-05-10 05:24] LABS: Calcium 8.4 mg/dl (8.5-10.1); Creatinine Clr Calc Pharmacy 86.8 ml/min; Est GFR (African American) 104.6 ml/min; Est GFR (Non-African American) 90.3 ml/min; Magnesium 1.9 mg/dl (1.7-2.4); Phosphorus 2.8 mg/dl (2.5-4.9); Potassium 3.5 mmol/L (3.5-5.1)
[2022-05-10] MEDS: ENOXAPARIN INJ 40 MG/0.4 ML SYR SQ SCH (07:17)
[2022-05-10] MEDS: LEVOTHYROXINE SODIUM 125 MCG TABLET PO SCH (07:18)
[2022-05-10] MEDS: PANTOprazole 40 MG TAB PO SCH (07:18)
[2022-05-10] MEDS: ASPIRIN 81 MG ECTAB PO SCH (08:05)
[2022-05-10] MEDS: FLUoxetine HCL 20 MG CAP PO SCH (08:05)
[2022-05-10] MEDS: lisinopril 5 MG TAB PO SCH (08:05)
[2022-05-10] MEDS: SIMVASTATIN 10 MG TAB PO SCH (08:06)
[2022-05-10] MEDS: MAGNESIUM OXIDE 400 MG TAB PO SCH (08:06)
[2022-05-10] MEDS: INSULIN ASPART PER UNIT SC SCH ×2 (08:07→12:08)
[2022-05-10] MEDS ORDERED: NovoLIN-N (NPH) PER UNIT CHARGE SQ ONE (12:00)
[2022-05-10] MEDS ORDERED: INSULIN ASPART 100 UNITS/ML VIAL SC PRN (12:30)
[2022-05-10] MEDS ORDERED: hydroCHLOROthiazide 25 MG TAB PO SCH (13:00)
--- NOTE | 2022-05-10 13:00 | Hospitalist Progress Note ---
Date of Service May 10, 2022 Assessment & Plan (1) DKA (diabetic ketoacidosis): Plan: Patient is a 66 yr female who presents with diabetic ketoacidosis. DKA Likely due to malfunction of insulin pump Anion gap metabolic acidosis --CXR: No acute process --UA not suggestive of UTI IV insulin transition to SQ as per DKA protocol IV fluids discontinued Appreciate glycemic pharmacist help museum educator consulted Monitor BG, electrolytes Likely to be discharged home in next 24 hours Hypokalemia Hypophosphatemia Hypomagnesemia Replace electrolytes as needed Hyponatremia Pseudohyponatremia from hyperglycemia Resolved Monitor Hyperlipidemia: Continue statin GERD Continue PPI Hypertension: Resumed lisinopril, hydrochlorothiazide Monitor Hypothyroidism: Continue Levothyroxine DVT Px: Lovenox SQ Code Status Full Code Disposition Home Admission and Anticipated Discharge Date Admission Date: May 07, 2022 Subjective Patient is seen and examined at bedside No new complaints Patient able to contact with family and confirmed that Insulin pump was delivered Denies any chest pain, shortness of breath, dizziness, abdominal pain Likely plan to discharge home today Review of Systems Review of Systems: All systems reviewed & are unremarkable except as noted in Subjective Physical Exam Physical Exam: Physical Exam: Vitals signs as noted above General Appearance:Obese, no apparent distress Head: normocephalic, Atraumatic Eyes: normal inspection, EOMI Neck: supple, Trachea midline Respiratory/Chest: Normal breath sounds, CTA, No accessory muscle use Cardiovascular: S1, S2, No murmur Abdomen/GI:Soft, Non tender, Bowel sounds present Extremities/Musculoskeletal:normal inspection, Trace edema Neurologic/Psych:AAOX3, grossly no focal neurological deficits Skin: normal color, warm Results & Data Results & Data ([facility]) Vital Signs (Past 12 Hours) Vital Signs Temp Pulse Resp BP Pulse Ox O2 Del Method 05/10/22 08:00 36.6 C 70 16 185/99 H 97 Room Air Laboratory Results [facility] 05/10/22 04:42 Sodium 139 Potassium 3.5 Chloride 107 Carbon Dioxide 26 BUN 14 Creatinine 0.70 Glucose 73 Calcium 8.4 L
--- NOTE | 2022-05-10 15:59 | Discharge Summary ---
Date of Service May 10, 2022 Admission HPI Per Admitting Provider CHIEF COMPLAINT: DKA. HISTORY OF PRESENT ILLNESS: A 66-year-old female with past medical history significant for type 1 diabetes, states she is on insulin pump for the last 15 years; hyperlipidemia; hypothyroidism; hypertension; obesity; GERD; dermatitis, presents with DKA. The patient says sugars are running decently but today she felt dizzy, weak, and nauseous and checked her sugars, they are running very hig h, so she came to the ER and found to be in DKA. She has some mild headache. No neck pain, no blurred visions, no earache, no runny nose, no sore throat, no cough, no fevers, no chills.Says she is eating and drinking well. Denies any chest pain. No shortness of breath, no abdominal pain. Normal bowel and bladder movements. Resting comfortably and hemodynamically stable. Admission Exam Per Admitting Provider PHYSICAL EXAMINATION: GENERAL: The patient is of moderate build, not in acute distress. VITAL SIGNS: Temperature 37.4, pulse 101, respiratory rate 14, blood pressure 135/68, oxygen 99% on room air. HEENT: Pupils equal, round and reactive to light. Oral mucosa moist. NECK: No JVD, no neck masses. CARDIOVASCULAR: S1 and S2 heard. Regular rate and rhythm. No murmur, no gallop. RESPIRATORY SYSTEM: Normal AP diameter. No accessory muscle use. No wheezing, no crackles. ABDOMEN: Soft, bowel sounds present, nontender, no distention. CENTRAL NERVOUS SYSTEM: Cranial nerves II-XII grossly intact, nonfocal. EXTREMITIES: No edema, no erythema. Principal Diagnosis Diabetic ketoacidosis Hypokalemia Hypophosphatemia Hypomagnesemia Discharge Data Allergies Allergy/AdvReac Type Severity Reaction Status Date / Time dextromethorphan Allergy Severe Difficulty Verified 05/06/22 22:23 Breathing doxylamine Allergy Severe Difficulty Verified 05/06/22 22:23 Breathing pseudoephedrine Allergy Severe Difficulty Verified 05/06/22 22:23 Breathing glyburide Allergy Intermediate RASH Verified 05/06/22 22:23 tetanus toxoid, adsorbed Allergy Intermediate painful Verified 05/06/22 22:23 joints Ethanol Allergy Severe Difficulty Uncoded 05/06/22 22:23 Breathing Consultations 05/06/22 22:05 ED Decision to Admit Stat Diabetes Follow up Diabetes Follow-up Needed for HgbA1c >9% Hospital Course (1) DKA (diabetic ketoacidosis): Patient is a 66 yr female who presents with diabetic ketoacidosis. DKA Likely due to malfunction of insulin pump Anion gap metabolic acidosis --CXR: No acute process --UA not suggestive of UTI IV insulin transition to SQ as per DKA protocol IV fluids discontinued Appreciate glycemic pharmacist help clinical systems educator consulted Monitor BG, electrolytes Likely to be discharged home in next 24 hours Hypokalemia Hypophosphatemia Hypomagnesemia Replace electrolytes as needed Hyponatremia Pseudohyponatremia from hyperglycemia Resolved Monitor Hyperlipidemia: Continue statin GERD Continue PPI Hypertension: Resumed lisinopril, hydrochlorothiazide Monitor Hypothyroidism: Continue Levothyroxine DVT Px: Lovenox SQ Code Status Full Code Disposition Home Total Time Total Time Spent Total Time Spent (In Minutes): 48 minutes Discharge Plan Discharge Items Patient Disposition: Home - Self-Care Reason For Visit: HYPERGLYCEMIA Discharge Diagnosis: Diabetic ketoacidosis Hypokalemia Hypophosphatemia Hypomagnesemia Activity: Per Instructions section Exercise/Sports: Gradually increase as tolerated Non-emergency contact: Primary Care Provider Call non-emergency contact if: you have any medication questions, your symptoms worsen, your pain is concerning for you and you have a fever Follow-up/Referrals: Oswaldo Saxena MD [Primary Care Provider] - (Date & Time 05/15/2022 12:00 PM Provider DO [facility] ) Diet: Carb Count or DM1 Addtl Attending Provider Instructions: Follow-up with your primary care physician on 05/15/2022 12:00 PM as scheduled --Monitor your blood sugar levels regularly as advised Seek immediate medical attention if your symptoms reoccur or worsen Please take all medications as instructed on discharge list below. Please call if you have any questions or problems. You can reach a [facility] hospitalist on duty at [facility] 24 hours a day by calling [phone] Pending Studies at Discharge: No Stand-Alone Forms: My [facility], Smoking Cessation Medications and DC Order Prescriptions: Continued (DME) Dexcom G6 Call Center Professional Misc See Rx Instructions .ROUTE .MEDSUPPLY Qty: 9 4RF Rx Instructions: Use with dexcom g6 system E10.65 (DME) Dexcom G6 Transmitter Device See Rx Instructions .ROUTE .MEDSUPPLY Qty: 1 3RF Rx Instructions: Change every 90 days E10.65 (DME) OneTouch Ultra Test Strip See Rx Instructions .Route Qty: 400 3RF Rx Instructions: Test four times daily (DME) blood-glucose meter [OneTouch Ultra2 Meter] Kit See Rx Instructions .Route Qty: 1 0RF Rx Instructions: Test blood sugars 4 times a day insulin aspart U-100 [Novolog U-100 Insulin aspart] 100 unit/mL solution See Rx Instructions continuous subcutaneous infusion DAILY Qty: 90 0RF Rx Instructions: via continuous subcutaneous infusion daily; TDD 100 units aspirin [Adult Low Dose Aspirin] 81 mg tablet,delayed release (DR/EC) 81 mg PO DAILY diphenhydramine HCl 25 mg capsule 25 mg PO HS PRN (Reason: Sleep) Rx Instructions: 25 mg PO at bedtime PRN; fluocinonide 0.05 % solution 1 applic topical DAILY fluoxetine 40 mg capsule 40 mg PO DAILY hydrochlorothiazide 12.5 mg tablet 12.5 mg PO DAILY levothyroxine 125 mcg tablet 125 mcg PO DAILY lisinopril 5 mg tablet 5 mg PO DAILY lansoprazole 30 mg capsule,delayed release(DR/EC) 30 mg PO DAILYBB zolpidem 10 mg tablet 10 mg PO HS PRN (Reason: Sleep) trazodone 50 mg tablet 50 mg PO HS simvastatin 10 mg tablet 10 mg PO DAILY Discharge Orders: Discharge Order (Routine); Ordered 05/10/22 Ordered By: Roman Bhakta Admission Data Admit Date/Time: 05/07/22 00:16 Attending Provider: Roman Bhakta Admit Provider: Anival Velasco Primary Care Provider: Oswaldo Saxena Other Providers: Anival Velasco
[2022-05-10] MEDS ORDERED: NovoLOG INSULIN PUMP SCH (16:30)
== END 2022-05-10 17:15 | disposition home or self-care (01) | DRG 638 ==
LOC: ED 20:28 → SUATTDRO 05-07 00:16 → EDINP 05-07 00:16 → 1E 05-07 01:02

== ENCOUNTER 2022-06-07 08:19 | Inpatient (IN) ==
[2022-06-07] MEDS ORDERED: PHARMACY GLYCEMIC MGMT CONSULT PRN (08:54)
[2022-06-07] MEDS ORDERED: STAT IV Infusion **Titration per Protocol STA (08:54)
[2022-06-07] MEDS ORDERED: INSULIN REGULAR 250 UNITS in SODIUM CHLORIDE 0.9% 247.5 ML IV SCH ×3 (09:00→17:00)
[2022-06-07] MEDS ORDERED: SODIUM CHLORIDE 0.9% 1000ML 1,000 ML IV SCH ×2 (09:00→13:24)
[2022-06-07] MEDS ORDERED: ONDANSETRON INJ 2 MG/ML 2 ML VIAL IV STA (09:05)
[2022-06-07 09:18] LABS: Basophils # (auto) 0.15 K/uL (0-0.2); Basophils % (auto) 0.7 %; Eosinophils # (auto) 0.01 K/uL (0-0.50); Hematocrit (blood only) 49.2 % (34.1-44.9); Hemoglobin 15.7 g/dl (12.0-16.0); Immature Granulocytes # (auto) 0.28 K/uL (0.00-0.02); Immature Granulocytes % (auto) 1.4 %; Lymphocytes # (auto) 4.52 K/uL (1.2-3.4); Lymphocytes % (auto) 22.6 %; Mean Corpuscular Hemoglobin 30.8 pg (25.0-34.0); Mean Corpuscular Hgb Conc 31.9 g/dL (32.0-36.0); Mean Corpuscular Volume 96.5 fL (80.0-100.0); Mean Platelet Volume 11.6 fL (9.4-12.3); Monocytes # (auto) 1.16 K/uL (0.24-0.82); Monocytes % (auto) 5.8 %; Neutrophils # (auto) 13.89 K/uL (1.4-6.5); Neutrophils % (auto) 69.5 %; Platelet Count 454 K/uL (130-400); RDW Coefficient of Variation 13.6 % (11.5-14.5); RDW Standard Deviation 49.2 fL (36.4-46.3); White Blood Count 20.01 K/ul (4.8-10.8)
[2022-06-07 09:24] LABS: iSTAT Creatinine 0.7 mg/dl (0.6-1.3); iSTAT Hemoglobin 17.3 g/dl (12.0-16.0); iSTAT Ionized Calcium 1.25 mmol/l (1.12-1.32); iSTAT Potassium 4.2 mmol/L (3.3-5.0)
[2022-06-07] MEDS ORDERED: SODIUM BICARB 8.4% INJ 50 MEQ/50 ML SYR IV STA ×2 (09:27→10:33)
--- NOTE | 2022-06-07 09:28 | XRay Report ---
XR chest 1V portable HISTORY: 66 years-old Female weakness acute weakness COMPARISON: Chest radiograph 05/06/2022, CTA chest 01/22/2022. TECHNIQUE: Portable AP view of the chest FINDINGS: Cardiac silhouette is upper limits of normal in size. Bilateral hilar prominence is similar to prior, likely secondary to normal pulmonary vasculature. No pneumothorax, pleural effusion, airspace consol idation or overt pulmonary edema. Degenerative changes of the shoulders and spine. IMPRESSION: No acute process. ACT 112: Negative or not required by law. The above report was generated using voice recognition software. It may contain grammatical, syntax o r spelling errors. Electronically signed by: Joaquin Arthur M.D. 06/07/2022 9:27 AM
[2022-06-07 09:35] LABS: iSTAT Arterial Blood Gas HCO3 3 meg/L (19-24); iSTAT Arterial Blood Gas pCO2 < 10 mmHg (35-46); iSTAT Arterial Blood Gas pH 7.05 (7.35-7.45); iSTAT Arterial Blood Gas pO2 123 mmHg (80-95); iSTAT Carbon Dioxide < 5 mmol/L (24-31); iSTAT Hematocrit 50 % (37-47); iSTAT Potassium 4.1 mmol/L (3.3-5.0); iSTAT Sodium 132 mmol/L (135-144)
[2022-06-07] MEDS: INSULIN REGULAR 250 UNITS in SODIUM CHLORIDE 0.9% 247.5 ML IV SCH ×5 (09:35→17:09)
--- NOTE | 2022-06-07 10:14 | Emergency Department Note ---
History of Present Illness General Chief complaint: Nausea Time Seen by Provider: 06/07/22 08:27 History of Present Illness 66-year-old female presents to the ED with a chief complaint of nausea and vomiting. The patient is an insulin-dependent diabetic. The patient states that she has an insulin pump. She states that her battery ran today. She had a couple of episodes of vomiting overnight. She denies any other specific symptoms. The last time she checked her blood sugar was last night and she st ates that it recorded high. She denies any chest pains or shortness of breath. No abdominal pains. No diarrhea. He was transported here by EMS. Blood sugar when she arrived was 590. Home Medications Medication Instructions Recorded Confirmed Type aspirin 81 mg tablet,delayed 81 mg PO DAILY 01/29/21 06/07/22 History release (Adult Low Dose Aspirin) diphenhydramine HCl 25 mg capsule 25 mg PO HS PRN Sleep 01/29/21 06/07/22 History fluocinonide 0.05 % topical 1 applic topical DAILY 01/29/21 06/07/22 History solution fluoxetine 40 mg capsule 40 mg PO DAILY 01/29/21 06/07/22 History levothyroxine 125 mcg tablet 125 mcg PO DAILY 01/29/21 06/07/22 History lisinopril 5 mg tablet 5 mg PO DAILY 01/29/21 06/07/22 History Dexcom G6 Inbound Sales Representative (blood-glucose #9 ea 03/27/21 05/06/22 Rx meter,continuous) Dexcom G6 Transmitter #1 ea 03/27/21 05/06/22 Rx (blood-glucose transmitter) lansoprazole 30 mg capsule,delayed 30 mg PO DAILYBB 06/03/21 06/07/22 History release zolpidem 10 mg tablet 10 mg PO HS PRN Sleep 06/03/21 06/07/22 History OneTouch Ultra Test (blood sugar #400 ea 07/10/21 05/06/22 Rx diagnostic) blood-glucose meter (OneTouch #1 ea 03/20/22 05/06/22 Rx Ultra2 Meter kit) insulin aspart U-100 100 unit/mL See Rx Instructions continuous 04/24/22 06/07/22 Rx subcutaneous solution (Novolog subcutaneous infusion DAILY #90 mL U-100 Insulin aspart) simvastatin 10 mg tablet 10 mg PO DAILY 05/06/22 06/07/22 History trazodone 50 mg tablet 50 mg PO HS 05/06/22 06/07/22 History Allergies Allergy/AdvReac Type Severity Reaction Status Date / Time dextromethorphan Allergy Severe Difficulty Verified 06/07/22 10:07 Breathing doxylamine Allergy Severe Difficulty Verified 06/07/22 10:07 Breathing pseudoephedrine Allergy Severe Difficulty Verified 06/07/22 10:07 Breathing glyburide Allergy Intermediate RASH Verified 06/07/22 10:07 tetanus toxoid, adsorbed Allergy Intermediate painful Verified 06/07/22 10:07 joints Ethanol Allergy Severe Difficulty Uncoded 06/07/22 10:07 Breathing Past Med/Surg History Medical History DKA (diabetic ketoacidosis) GERD (gastroesophageal reflux disease) Mixed hyperlipidemia Presence of insulin pump Uncontrolled type 1 diabetes mellitus with hyperglycemia Surgical History History of cholecystectomy History of hysterectomy History of shoulder surgery History of tonsillectomy Family History Grandmother (Maternal) Diabetes Mother Hypertension Heart disease Grandmother (Paternal) Diabetes Social History Smoking Status: Never smoker Second Hand Exposure: No; Hx Alcohol Use: No Hx Substance Use: No Preferred Language: Martiniquais Communication Ability: Effective Consulting Property Manager Required: No Beliefs That Will Affect Care: None marital status: Current Living Situation: Family Current Living Situation Comment: lives with grandson Feels Safe at Home: Yes Assistive Devices: None Review of Systems A total of 10 systems reviewed and were otherwise negative Physical Exam Vital Signs Vital Signs - 24 hr 06/07/22 08:25 06/07/22 08:43 06/07/22 09:11 Pulse Rate 135 H Pulse Rate [Apical] 129 H Respiratory Rate 28 H 26 H Respiratory Effort / Characteristics Short of Breath Short of Breath Respiratory Pattern Tachypnea Tachypnea Blood Pressure 217/125 H Blood Pressure [Right Arm] 211/101 H Blood Pressure Mean 155 Blood Pressure Mean [Right Arm] 137 Pulse Oximetry 97 98 98 Oxygen Delivery Method Room Air Room Air Room Air Sepsis Recent Fever Within 48 Hours No Sepsis New/Unexplained Change in Mental Status No Sepsis Action Taken by Nursing No Action Required 06/07/22 09:14 06/07/22 09:47 Pulse Rate Pulse Rate [Apical] 126 H 128 H Respiratory Rate 26 H 28 H Respiratory Effort / Characteristics Respiratory Pattern Tachypnea Tachypnea Blood Pressure Blood Pressure [Right Arm] 194/102 H 208/98 H Blood Pressure Mean Blood Pressure Mean [Right Arm] 132 134 Pulse Oximetry 98 100 Oxygen Delivery Method Room Air Room Air Sepsis Recent Fever Within 48 Hours Sepsis New/Unexplained Change in Mental Status Sepsis Action Taken by Nursing CONSTITUTIONAL/VITAL SIGNS: Reviewed / noted above. GENERAL: toxic in appearance. Smell of ketones in the room. INTEGUMENTARY: Warm, dry, and [place]. HEAD: Normocephalic. EYES: without scleral icterus or trauma. ENT/OROPHARYNX: clear and moist. LYMPHADENOPATHY/NECK: Is supple without lymphadenopathy or meningismus. RESPIRATORY: Tachypnea. Clear to auscultation bilaterally. No increased work of breathing. CARDIOVASCULAR: Tachycardic rate and regular rhythm. GI/ABDOMEN: Soft and nontender. No organomegaly or pulsatile mass. EXTREMITIES: Warm and well perfused. BACK: No CVA tenderness. NEUROLOGICAL: Intact without focal deficits. PSYCHIATRIC: normal affect. MUSCULOSKELETAL: Normally developed with good muscle tone. TRIAGE NURSING DOCUMENTATION REVIEWED. Procedures ABG Interpretation ABG Interpretation 1: ABG Results: 7.0 49/109/123 Interpretation: abnormal and metabolic acidosis Course Administered Medications Insulin Human Regular 250 (units/ Sodium Chloride) 250 mls @ 9 mls/hr IV .Q24H CLAUDIA; Protocol Stop: 07/07/22 08:59 Last Admin: 06/07/22 09:35 Dose: 0.1 units/kg/hr, 9 mls/hr Documented By: PUJA Co-signed By: HS Discontinued Medications Sodium Chloride (Nss 1000ml) 1,000 mls @ 999 mls/hr IV .Q1H1M CLAUDIA Stop: 06/07/22 10:00 Last Infusion: 06/07/22 10:06 Dose: 0 mls/hr Documented By: Admin: 06/07/22 09:08 Dose: 999 mls/hr Documented By: PUJA Miscellaneous (Stat Iv Infusion Titration Per Protocol) 1 each N/A NOW STA Stop: 06/07/22 08:55 Last Admin: 06/07/22 09:52 Dose: 1 each Documented By: PUJA Ondansetron HCl (Ondansetron Inj 2 Mg/Ml 2 Ml Vial) 4 mg IV NOW STA Stop: 06/07/22 09:06 Last Admin: 06/07/22 09:07 Dose: 4 mg Documented By: PUJA Sodium Bicarbonate (Sodium Bicarb 8.4% Inj 50 Meq/50 Ml Syr) 50 meq IV NOW STA Stop: 06/07/22 09:28 Last Admin: 06/07/22 09:34 Dose: 50 meq Documented By: PUJA Critical Care Time Critical Care Time: Yes Total Critical Care Time: 30 I have personally spent 30 minutes of critical care time in the direct management of this patient. This includes bedside care, interpretation of diagnostic studies, and testing, discussion with consultants, patient, and family members, and other required patient management activities. This 30 minutes is in excess of all separately billable procedures. Medical Decision Making Differential Diagnosis Differential includes acute coronary syndrome, myocardial infarction, CVA, TIA, anemia, infection, pneumonia, UTI, pyelonephritis, poor nutrition, dehydration, electrolyte disturbance,hypoglycemia. Medical Records Attestation: I reviewed the patient's medical records. Home Medications Current Medication List: was personally reviewed by me Laboratory Data Attestation: I reviewed the patient's lab results. Result diagrams: 06/07/22 09:00 06/07/22 09:00 Lab Results 06/07/22 06/07/22 06/07/22 Range/Units 08:45 09:00 09:00 WBC 20.01 H (4.8-10.8) K/ul RBC 5.10 (3.93-5.22) M/uL Hgb 15.7 (12.0-16.0) g/dl POC Hgb (12.0-16.0) g/dl Hct 49.2 H (34.1-44.9) % POC Hct (37-47) % MCV 96.5 (80.0-100.0) fL MCH 30.8 (25.0-34.0) pg MCHC 31.9 L (32.0-36.0) g/dL RDW Std Deviation 49.2 H (36.4-46.3) fL RDW Coeff of Rossi 13.6 (11.5-14.5) % Plt Count 454 H (130-400) K/uL MPV 11.6 (9.4-12.3) fL Immature Gran % (Auto) 1.4 % Neut % (Auto) 69.5 % Lymph % (Auto) 22.6 % [place] % (Auto) 5.8 % Eos % (Auto) 0.0 % Baso % (Auto) 0.7 % Neut # (Auto) 13.89 H (1.4-6.5) K/uL Lymph # (Auto) 4.52 H (1.2-3.4) K/uL [place] # (Auto) 1.16 H (0.24-0.82) K/uL Eos # (Auto) 0.01 (0-0.50) K/uL Baso # (Auto) 0.15 (0-0.2) K/uL Immature Gran # (Auto) 0.28 H (0.00-0.02) K/uL POC pH (7.35-7.45) POC pCO2 (35-46) mmHg POC pO2 (80-95) mmHg POC HCO3 (19-24) kody/L POC Base Excess (-9-1.8) kody/L POC ABG O2 Sat (90-95) % VBG pH (7.36-7.41) POC Sodium (135-144) mmol/L POC Potassium (3.3-5.0) mmol/L POC Chloride (101-112) mmol/L POC Total CO2 (24-31) mmol/L POC Anion Gap (16-25) mmol/L POC BUN (7-18) mg/dl POC Creatinine (0.6-1.3) mg/dl POC Glucose 590 H* (70-99) mg/dl POC Glucose (other) (70-99) mg/dl Lactate 1.8 (0.4-2.0) mmol/L POC Ioniz Calcium [place] (1.12-1.32) mmol/l 06/07/22 06/07/22 06/07/22 Range/Units 09:00 09:12 09:21 WBC (4.8-10.8) K/ul RBC (3.93-5.22) M/uL Hgb (12.0-16.0) g/dl POC Hgb 17.3 H 17.0 H (12.0-16.0) g/dl Hct (34.1-44.9) % POC Hct 51 H 50 H (37-47) % MCV (80.0-100.0) fL MCH (25.0-34.0) pg MCHC (32.0-36.0) g/dL RDW Std Deviation (36.4-46.3) fL RDW Coeff of Rossi (11.5-14.5) % Plt Count (130-400) K/uL MPV (9.4-12.3) fL Immature Gran % (Auto) % Neut % (Auto) % Lymph % (Auto) % [place] % (Auto) % Eos % (Auto) % Baso % (Auto) % Neut # (Auto) (1.4-6.5) K/uL Lymph # (Auto) (1.2-3.4) K/uL [place] # (Auto) (0.24-0.82) K/uL Eos # (Auto) (0-0.50) K/uL Baso # (Auto) (0-0.2) K/uL Immature Gran # (Auto) (0.00-0.02) K/uL POC pH 7.05 L* (7.35-7.45) POC pCO2 < 10 L (35-46) mmHg POC pO2 123 H (80-95) mmHg POC HCO3 3 L (19-24) kody/L POC Base Excess -28.0 L (-9-1.8) kody/L POC ABG O2 Sat 97.0 H (90-95) % VBG pH 7.05 L (7.36-7.41) POC Sodium 134 L 132 L (135-144) mmol/L POC Potassium 4.2 4.1 (3.3-5.0) mmol/L POC Chloride 107 (101-112) mmol/L POC Total CO2 7 L* < 5 L* (24-31) mmol/L POC Anion Gap 25.0 (16-25) mmol/L POC BUN 14 (7-18) mg/dl POC Creatinine 0.7 (0.6-1.3) mg/dl POC Glucose (70-99) mg/dl POC Glucose (other) 621 H* (70-99) mg/dl Lactate (0.4-2.0) mmol/L POC Ioniz Calcium [place] 1.25 (1.12-1.32) mmol/l Imaging Data Radiologist's Impression: Chest X-Ray 06/07/22 08:59 XR chest 1V portable HISTORY: 66 years-old Female weakness acute weakness COMPARISON: Chest radiograph 05/06/2022, CTA chest 01/22/2022. TECHNIQUE: Portable AP view of the chest FINDINGS: Cardiac silhouette is upper limits of normal in size. Bilateral hilar prominence is similar to prior, likely secondary to normal pulmonary vasculature. No pneumothorax, pleural effusion, airspace consolidation or overt pulmonary edema. Degenerative changes of the shoulders and spine. IMPRESSION: No acute process. ACT 112: Negative or not required by law. The above report was generated using voice recognition software. It may contain grammatical, syntax or spelling errors. Electronically signed by: Joaquin Arthur M.D. 06/07/2022 9:27 AM ECG Data Attestation: I personally reviewed and interpreted this ECG as follows: Additional Comments: 12 Lead EKG: Per my interpretation shows a sinus tach at a rate of 137. No ST elevation. No PVCs. Normal QTC. MDM Narrative 66-year-old female presents with DKA. A twelve-lead EKG shows a sinus rhythm at a rate of 137. The patient's white blood cell count is 20. Clinically I feel infection is not likely. This is likely a stress response. The patient's chemistry panel shows a bicarb of 4 and an anion gap of 28. Glucose is 589. ABG shows a pH of 7.05. PCO2 is 9. PaO2 is 123. This suggests a metabolic acidosis with attempted respiratory compensation that is an adequate. The patient was given IV fluids as well as started on IV insulin drip. She was also given 2 A of bicarb. She was given IV Zofran for some nausea. She will be seen by the hospitalist for further evaluation and care. Not show acute process. Impression & Plan DKA (diabetic ketoacidosis) Discharge Plan Visit Data Chief Complaint: Nausea ED Provider: Balbir Crowe Discharge Problem: DKA (diabetic ketoacidosis) Patient Disposition: Being Evaluated by Hospitalist Forms Stand Alone Forms: My [facility] [employer] Prescriptions Prescriptions: No Action (DME) Dexcom G6 Inbound Sales Representative Misc See Rx Instructions .ROUTE .MEDSUPPLY Qty: 9 4RF Rx Instructions: Use with dexcom g6 system E10.65 (DME) Dexcom G6 Transmitter Device See Rx Instructions .ROUTE .MEDSUPPLY Qty: 1 3RF Rx Instructions: Change every 90 days E10.65 (DME) OneTouch Ultra Test Strip See Rx Instructions .Route Qty: 400 3RF Rx Instructions: Test four times daily (DME) blood-glucose meter [OneTouch Ultra2 Meter] Kit See Rx Instructions .Route Qty: 1 0RF Rx Instructions: Test blood sugars 4 times a day insulin aspart U-100 [Novolog U-100 Insulin aspart] 100 unit/mL solution See Rx Instructions continuous subcutaneous infusion DAILY Qty: 90 0RF Rx Instructions: via continuous subcutaneous infusion daily; TDD 100 units aspirin [Adult Low Dose Aspirin] 81 mg tablet,delayed release (DR/EC) 81 mg PO DAILY diphenhydramine HCl 25 mg capsule 25 mg PO HS PRN (Reason: Sleep) Rx Instructions: 25 mg PO at bedtime PRN; fluocinonide 0.05 % solution 1 applic topical DAILY fluoxetine 40 mg capsule 40 mg PO DAILY levothyroxine 125 mcg tablet 125 mcg PO DAILY lisinopril 5 mg tablet 5 mg PO DAILY lansoprazole 30 mg capsule,delayed release(DR/EC) 30 mg PO DAILYBB zolpidem 10 mg tablet 10 mg PO HS PRN (Reason: Sleep) trazodone 50 mg tablet 50 mg PO HS simvastatin 10 mg tablet 10 mg PO DAILY Referrals Referrals: Oswaldo Saxena MD [Primary Care Provider] -
[2022-06-07] MEDS ORDERED: LABETALOL HCL IV 5 MG/ML 20ML IV STA (10:17)
[2022-06-07 10:20] LABS: Albumin Globulin Ratio 1.4 (0.9-2); Albumin Level 4.5 gm/dl (3.4-5.0); BUN Creatinine Ratio 12.7 (10-20); Bilirubin,Total 0.4 mg/dl (0.2-1.0); Creatinine Clr Calc Pharmacy 48.9 ml/min; Est GFR (African American) 55.7 ml/min; Globulin 3.2 gm/dl (2.5-4.0); Magnesium 2.1 mg/dl (1.7-2.4); Phosphorus 4.4 mg/dl (2.5-4.9); Potassium 4.4 mmol/L (3.5-5.1); Total Protein 7.7 gm/dl (6.0-8.3); Troponin I High Sensitivity 10.3 pg/ml (0-14)
[2022-06-07] MEDS ORDERED: LABETALOL HCL IV 5 MG/ML 20ML IV ONE (10:25)
--- NOTE | 2022-06-07 10:25 | Critical Care Consultation ---
Date of Consultation June 07, 2022 Assessment & Plan (1) High anion gap metabolic acidosis: (2) DKA (diabetic ketoacidosis): (3) JENNY (acute kidney injury): Plan Chest x-ray 06/07/2022 personally reviewed: Portable film, fair inspiratory effort, bilateral costophrenic and cardiophrenic angles are clean, mild pulmonary vascular congestion appreciated. No clear lung infiltrate -- DKA Continue with insulin drip until anion gap closes Decreasing blood glucose no more than 100 in an hour Replace potassium IV when potassium level between 3.3-5.3 BMP every 4 hours Continue with IV fluids HbA1c 14 EKG 06/07/2022: Sinus tachycardia, P pulmonale, mild ST elevation in lead III (chronic since 01/2022), poor R wave progression on the lateral leads -- HAGMA Delta-delta: 0.8, gap plus nongap Gap is from ketoacidosis, nongap is most likely from urinary losses, follow-up urine lites Monitor -- Elevated WBC Likely reactive to DKA UA shows only +1 bacteria but negative for nitrate and leukocyte esterase --DAVION On CPAP at home --Hypothyroidism Continue with levothyroxine --Anxiety/depression Continue with fluoxetine and trazodone --Dyslipidemia/hypertension Continue with simvastatin and lisinopril --Prophylaxis VTE: Lovenox GI: Protonix Lines: Peripheral Diet: N.p.o. Plan: Continue with insulin drip till the anion gap closes Continue with bicarb drip till the pH is greater than 7.1 No source of infection. No need for antibiotics Monitor BMP every 4 hours Hypophosphatemia and hypokalemia being replaced Please note the above document was generated using voice recognition software. It may contain grammatical, syntax or spelling errors.Any formal questions or concerns about the content, text or information contained within the body of this dictation should be directly addressed to the provider for clarification. History of Present Illness History of Present Illness 66 year old female presented to the hospital with complaints of nausea vomiting and elevated sugar Past medical history: Type 1 diabetes on insulin pump, dyslipidemia, hypothyroidism, hypertension, GERD In the ED patient was found to be tachypneic with sugars in the 600s. VBG showed a pH of 7.05, Dr. Harvey did give me a call to discuss the case I recommended him to start bicarb drip and insulin drip and sent the patient to the ICU At the time of examination patient's systolic blood pressure was in the 180s. She says she was feeling better compared to when she came to the hospital but still complain of abdominal discomfort especially reflux-like symptoms Denies any chest pain, did complain of having difficulty breathing. No wheezing. She was saturating 99% on room air with heart rate in 110s. Denies any dysuria, no diarrhea No headache, no blurry vision Nausea has improved since coming to the hospital. Social history: Lifetime non-smoker. Allergies Allergy/AdvReac Type Severity Reaction Status Date / Time dextromethorphan Allergy Severe Difficulty Verified 06/07/22 10:07 Breathing doxylamine Allergy Severe Difficulty Verified 06/07/22 10:07 Breathing pseudoephedrine Allergy Severe Difficulty Verified 06/07/22 10:07 Breathing glyburide Allergy Intermediate RASH Verified 06/07/22 10:07 tetanus toxoid, adsorbed Allergy Intermediate painful Verified 06/07/22 10:07 joints Ethanol Allergy Severe Difficulty Uncoded 06/07/22 10:07 Breathing Home Medications Medication Instructions Recorded Confirmed Type aspirin 81 mg tablet,delayed 81 mg PO DAILY 01/29/21 06/07/22 History release (Adult Low Dose Aspirin) diphenhydramine HCl 25 mg capsule 25 mg PO HS PRN Sleep 01/29/21 06/07/22 Hi story fluocinonide 0.05 % topical 1 applic topical DAILY 01/29/21 06/07/22 History solution fluoxetine 40 mg capsule 40 mg PO DAILY 01/29/21 06/07/22 History levothyroxine 125 mcg tablet 125 mcg PO DAILY 01/29/21 06/07/22 History lisinopril 5 mg tablet 5 mg PO DAILY 01/29/21 06/07/22 History Dexcom G6 Quality Assurance Intern (blood-glucose #9 ea 03/27/21 05/06/22 Rx meter,continuous) Dexcom G6 Transmitter #1 ea 03/27/21 05/06/22 Rx (blood-glucose transmitter) lansoprazole 30 mg capsule,delayed 30 mg PO DAILYBB 06/03/21 06/07/22 History release zolpidem 10 mg tablet 10 mg PO HS PRN Sleep 06/03/21 06/07/22 History OneTouch Ultra Test (blood sugar #400 ea 07/10/21 05/06/22 Rx diagnostic) blood-glucose meter ([place] #1 ea 03/20/22 05/06/22 Rx Ultra2 Meter kit) insulin aspart U-100 100 unit/mL See Rx Instructions continuous 04/24/22 06/07/22 Rx subcutaneous solution (Novolog subcutaneous infusion DAILY #90 mL U-100 Insulin aspart) simvastatin 10 mg tablet 10 mg PO DAILY 05/06/22 06/07/22 History trazodone 50 mg tablet 50 mg PO HS 05/06/22 06/07/22 History Patient History Medical History DKA (diabetic ketoacidosis) GERD (gastroesophageal reflux disease) Mixed hyperlipidemia Presence of insulin pump Uncontrolled type 1 diabetes mellitus with hyperglycemia Surgical History History of cholecystectomy History of hysterectomy History of shoulder surgery History of tonsillectomy Family History Grandmother (Maternal) Diabetes Mother Hypertension Heart disease Grandmother (Paternal) Diabetes Social History Smoking Status: Never smoker Second Hand Exposure: No; Hx Alcohol Use: No Hx Substance Use: No Preferred Language: Mozambican Communication Ability: Effective Tool Liaison Required: No Beliefs That Will Affect Care: None marital status: Current Living Situation: Family Current Living Situation Comment: lives with grandson Feels Safe at Home: Yes Assistive Devices: None Review of Systems Review of Systems: All systems reviewed & are unremarkable except as noted in HPI & below Physical Exam Physical Exam: Constitutional: No acute distress HEENT: EOMI, PERRLA Respiratory system: Good air entry bilaterally, no wheeze, rhonchi, mild crackles bilateral lower lobes CVS: S1-S2 positive, no murmurs or gallops Abdomen: Soft, nontender, nondistended, positive bowel sounds x4, obese Extremities: +2 pulses bilaterally radialis/ dorsalis pedis, no cyanosis, no edema Neuro: Awake alert oriented x3 Psych: Normal mood and affect G/U: No Rahman Skin: no rashes, warm and dry Lymphatic: no cervical or axillary lymphadenopathy Results & Data Results & Data ([facility]) Vital Signs (Past 12 Hours) Vital Signs Pulse Pulse Resp BP BP Pulse Ox O2 Del Method 06/07/22 09:47 128 H 28 H 208/98 H 100 Room Air 06/07/22 09:14 126 H 26 H 194/102 H 98 Room Air 06/07/22 09:11 98 Room Air 06/07/22 08:43 129 H 26 H 211/101 H 98 Room Air 06/07/22 08:25 135 H 28 H 217/125 H 97 Room Air Laboratory Results 06/07/22 09:00 Coding Level of Care Code Critical Care 1st 30-74 mins Diagnoses High anion gap metabolic acidosis E87.2 DKA (diabetic ketoacidosis) E11.10 JENNY (acute kidney injury) N17.9 Time Spent (min) 55
[2022-06-07 10:30] LABS: Appearance Urine Clear (Clear); Bacteria Urine Automated 1+ (Negative); Bilirubin Urine Negative (Negative); Blood Urine Trace (Negative); Color Urine Yellow; Epithelial Cell Urine Auto >30 /lpf (0-5); Glucose Urine UA 3+ (Negative); Ketones Urine 4+ (Negative); Leukocyte Esterase Urine Negative (Negative); Nitrite Urine Negative (Negative); Protein Urine 1+ (Negative); RBC Urine Automated 0-4 /hpf (0-4); Specific Gravity Urine 1.029 (1.000-1.030); Urobilinogen Urine Negative (Negative)
--- NOTE | 2022-06-07 10:38 | History & Physical Report ---
Date of Service June 07, 2022 Assessment & Plan (1) DKA (diabetic ketoacidosis): (2) High anion gap metabolic acidosis: Plan: Present on admission with nausea and vomiting. Found to be in DKA Possible due to insulin pump malfunction ( Battery as per patient) Lab on admission with glucose 621, anion gap 28 and pH 7.05 Pt will be monitored in the ICU Insulin drip started in the ER Received 1 am Bicarb and IVF Started on diabetic ketoacidosis protocol with aggressive IV fluids per protocol, insulin drip per protocol Case discussed with Machine Heel Builder that suggested to start bicarb drip and continue aggressive IVF Will monitor BMP q4h until anion gap closed. Check ABG in 4 hrs Pharmacy consult for glycemic management Diabetic education consult Continue monitor closely in the ICU Hyponatremia Mostly pseudohyponatremia from hyperglycemia. Corrected Na around 138 Continue monitor BMP Leukocytosis Possible related to stress induce due to the DKA WBC 20 on admission Pt is afebrile Covid 19 negative CXR showed no acute finding Blood cx and urine cx collected in the ER Will hold on abx for now Hypertensive urgency Mostly due to acute illness and hospital setting BP on admission BP 217/125 Received IV labetatolol BP improved Will resume Oral BP med Tachycardia Mostly due to acute illness and hospital setting HR on admission increased in the 150. EKG showed sinus tachycardia Troponin negative Denies any chest pain Labetalol 10mg IVx1 given HR improves Hyperlipidemia: Continue statin. Gastroesophageal reflux disease Continue lansoprazole. Hypothyroidism Continue Synthroid. Deep venous thrombosis prophylaxis: On Lovenox. Code status Full code History of Present Illness Chief Complaint: DKA, Vomiting Primary Care Provider: Oswaldo Saxena MD 66-year-old female with past medical history significant for type 1 diabetes, on insulin pump for the last 15 years, hyperlipidemia, hypothyroidism, hypertension, obesity, GERD, dermatitis, presents to the ED with vomiting and elevated glucose. Pt had multiple admission for DKA in the past with most recent one about 1 month ago. History is difficult to obtain since pt is hyperventilate and speaking in segment. She said that last night she felt ok and her blood sugar was running ok in the last few days.. She said this morning she woke up with nausea and vomiting. She said that she vomited about 3 times this morning before coming to the ED. She said this morning she realized the battery from her insulin pump was . She said that she feels like she is running out of energy and her very thirsty now. She said that never felt like that before from her pr ior admission with DKA. She denies any chest pain, dysuria, no blurred visions, no earache, no runny nose, no sore throat, no cough, no fevers, no chills. Lab was done in the ED with glucose 612, anion gap 28, ABG with pH 7.05. She was hyperventilated with RR above 40 and BP 217/125 and HR in the 150. Allergies Allergy/AdvReac Type Severity Reaction Status Date / Time dextromethorphan Allergy Severe Difficulty Verified 06/07/22 10:07 Breathing doxylamine Allergy Severe Difficulty Verified 06/07/22 10:07 Breathing pseudoephedrine Allergy Severe Difficulty Verified 06/07/22 10:07 Breathing glyburide Allergy Intermediate RASH Verified 06/07/22 10:07 tetanus toxoid, adsorbed Allergy Intermediate painful Verified 06/07/22 10:07 joints Ethanol Allergy Severe Difficulty Uncoded 06/07/22 10:07 Breathing Home Medications Medication Instructions Recorded Confirmed Type aspirin 81 mg tablet,delayed 81 mg PO DAILY 01/29/21 06/07/22 History release (Adult Low Dose Aspirin) diphenhydramine HCl 25 mg capsule 25 mg PO HS PRN Sleep 01/29/21 06/07/22 History fluocinonide 0.05 % topical 1 applic topical DAILY 01/29/21 06/07/22 History solution fluoxetine 40 mg capsule 40 mg PO DAILY 01/29/21 06/07/22 History levothyroxine 125 mcg tablet 125 mcg PO DAILY 01/29/21 06/07/22 History lisinopril 5 mg tablet 5 mg PO DAILY 01/29/21 06/07/22 History Dexcom G6 Complaint Adjuster (blood-glucose #9 ea 03/27/21 05/06/22 Rx meter,continuous) Dexcom G6 Transmitter #1 ea 03/27/21 05/06/22 Rx (blood-glucose transmitter) lansoprazole 30 mg capsule,delayed 30 mg PO DAILYBB 06/03/21 06/07/22 History release zolpidem 10 mg tablet 10 mg PO HS PRN Sleep 06/03/21 06/07/22 History OneTouch Ultra Test (blood sugar #400 ea 07/10/21 05/06/22 Rx diagnostic) blood-glucose meter (OneTouch #1 ea 03/20/22 05/06/22 Rx Ultra2 Meter kit) insulin aspart U-100 100 unit/mL See Rx Instructions continuous 04/24/22 06/07/22 Rx subcutaneous solution (Novolog subcutaneous infusion DAILY #90 mL U-100 Insulin aspart) simvastatin 10 mg tablet 10 mg PO DAILY 05/06/22 06/07/22 History trazodone 50 mg tablet 50 mg PO HS 05/06/22 06/07/22 History Past Med/Surg History Medical History DKA (diabetic ketoacidosis) GERD (gastroesophageal reflux disease) Mixed hyperlipidemia Presence of insulin pump Uncontrolled type 1 diabetes mellitus with hyperglycemia Surgical History History of cholecystectomy History of hysterectomy History of shoulder surgery History of tonsillectomy Family History Grandmother (Maternal) Diabetes Mother Hypertension Heart disease Grandmother (Paternal) Diabetes Social History Smoking Status: Never smoker Second Hand Exposure: No; Hx Alcohol Use: No Hx Substance Use: No Preferred Language: Faroese Communication Ability: Effective Industrial Sociologist Required: No Beliefs That Will Affect Care: None marital status: Current Living Situation: Family Current Living Situation Comment: lives with grandson Feels Safe at Home: Yes Assistive Devices: None Review of Systems Review of Systems: All systems reviewed & are unremarkable except as noted in HPI & below Physical Exam Physical Exam: General- acute respiratory distress, speaking in segment Head- atraumatic Eyes- PERRL, EOMI, ENT- +dry mouth, thirsty Neck- supple, no JVD Lungs- clear to auscultation Heart- +tachycardia, no murmur Abdomen- normal bowel sounds, soft, nontender Extremities- no calf tenderness Neuro- alert, oriented x 3; PERRL, EOMI; no facial palsy; no dysarthria Skin- warm & dry Results & Data Results & Data ([facility]) Vital Signs (Past 12 Hours) Vital Signs Pulse Pulse Resp BP BP Pulse Ox O2 Del Method 06/07/22 10:34 104 H 26 H 135/70 99 Room Air 06/07/22 10:25 128 H 26 H 192/85 H 100 Room Air 06/07/22 09:47 128 H 28 H 208/98 H 100 Room Air 06/07/22 09:14 126 H 26 H 194/102 H 98 Room Air 06/07/22 09:11 98 Room Air 06/07/22 08:43 129 H 26 H 211/101 H 98 Room Air 06/07/22 08:25 135 H 28 H 217/125 H 97 Room Air Diagnostic Findings Laboratory Results WBC 20.01 K/ul (4.8-10.8) H 06/07/22 09:00 RBC 5.10 M/uL (3.93-5.22) 06/07/22 09:00 Hgb 15.7 g/dl (12.0-16.0) 06/07/22 09:00 POC Hgb 17.0 g/dl (12.0-16.0) H 06/07/22 09:21 Hct 49.2 % (34.1-44.9) H 06/07/22 09:00 POC Hct 50 % (37-47) H 06/07/22 09:21 MCV 96.5 fL (80.0-100.0) 06/07/22 09:00 MCH 30.8 pg (25.0-34.0) 06/07/22 09:00 MCHC 31.9 g/dL (32.0-36.0) L 06/07/22 09:00 RDW Std Deviation 49.2 fL (36.4-46.3) H 06/07/22 09:00 RDW Coeff of Rossi 13.6 % (11.5-14.5) 06/07/22 09:00 Plt Count 454 K/uL (130-400) H 06/07/22 09:00 MPV 11.6 fL (9.4-12.3) 06/07/22 09:00 Immature Gran % (Auto) 1.4 % 06/07/22 09:00 Neut % (Auto) 69.5 % 06/07/22 09:00 Lymph % (Auto) 22.6 % 06/07/22 09:00 [place] % (Auto) 5.8 % 06/07/22 09:00 Eos % (Auto) 0.0 % 06/07/22 09:00 Baso % (Auto) 0.7 % 06/07/22 09:00 Neut # (Auto) 13.89 K/uL (1.4-6.5) H 06/07/22 09:00 Lymph # (Auto) 4.52 K/uL (1.2-3.4) H 06/07/22 09:00 [place] # (Auto) 1.16 K/uL (0.24-0.82) H 06/07/22 09:00 Eos # (Auto) 0.01 K/uL (0-0.50) 06/07/22 09:00 Baso # (Auto) 0.15 K/uL (0-0.2) 06/07/22 09:00 Immature Gran # (Auto) 0.28 K/uL (0.00-0.02) H 06/07/22 09:00 POC pH 7.05 (7.35-7.45) L* 06/07/22 09:21 POC pCO2 < 10 mmHg (35-46) L 06/07/22 09:21 POC pO2 123 mmHg (80-95) H 06/07/22 09:21 POC HCO3 3 kody/L (19-24) L 06/07/22 09:21 POC Total CO2 < 5 mmol/L (24-31) L* 06/07/22 09:21 POC Base Excess -28.0 kody/L (-9-1.8) L 06/07/22 09:21 POC ABG O2 Sat 97.0 % (90-95) H 06/07/22 09:21 VBG pH 7.05 (7.36-7.41) L 06/07/22 09:00 POC Sodium 132 mmol/L (135-144) L 06/07/22 09:21 Sodium 130 mmol/L (136-145) L 06/07/22 09:00 POC Potassium 4.1 mmol/L (3.3-5.0) 06/07/22 09:21 Potassium 4.4 mmol/L (3.5-5.1) 06/07/22 09:00 POC Chloride 107 mmol/L (101-112) 06/07/22 09:12 Chloride 98 mmol/L (98-107) 06/07/22 09:00 Carbon Dioxide 4 mmol/L (21-32) L* 06/07/22 09:00 POC Total CO2 7 mmol/L (24-31) L* 06/07/22 09:12 Anion Gap 28 (3-11) H 06/07/22 09:00 POC Anion Gap 25.0 mmol/L (16-25) 06/07/22 09:12 POC BUN 14 mg/dl (7-18) 06/07/22 09:12 BUN 15 mg/dl (6-23) 06/07/22 09:00 Creatinine 1.18 mg/dl (0.6-1.2) 06/07/22 09:00 POC Creatinine 0.7 mg/dl (0.6-1.3) 06/07/22 09:12 Est Cr Clr Drug Dosing 48.9 ml/min 06/07/22 09:00 Est GFR ( Amer) 55.7 ml/min 06/07/22 09:00 Est GFR (Non-Af Amer) 48.0 ml/min 06/07/22 09:00 BUN/Creatinine Ratio 12.7 (10-20) 06/07/22 09:00 Glucose 589 mg/dl (70-99(Fasting)) H* 06/07/22 09:00 POC Glucose 519 mg/dl (70-99) H* 06/07/22 10:38 POC Glucose (other) 621 mg/dl (70-99) H* 06/07/22 09:12 Lactate 1.8 mmol/L (0.4-2.0) 06/07/22 09:00 Calcium 9.0 mg/dl (8.5-10.1) 06/07/22 09:00 POC Ioniz Calcium [place] 1.25 mmol/l (1.12-1.32) 06/07/22 09:12 Phosphorus 4.4 mg/dl (2.5-4.9) 06/07/22 09:00 Magnesium 2.1 mg/dl (1.7-2.4) 06/07/22 09:00 Total Bilirubin 0.4 mg/dl (0.2-1.0) 06/07/22 09:00 AST 8 U/L (13-39) L 06/07/22 09:00 ALT 7 U/L (7-52) 06/07/22 09:00 Alkaline Phosphatase 128 U/L (34-104) H 06/07/22 09:00 Troponin I High Sens 10.3 pg/ml (0-14) 06/07/22 09:00 Total Protein 7.7 gm/dl (6.0-8.3) 06/07/22 09:00 Albumin 4.5 gm/dl (3.4-5.0) 06/07/22 09:00 Globulin 3.2 gm/dl (2.5-4.0) 06/07/22 09:00 Albumin/Globulin Ratio 1.4 (0.9-2) 06/07/22 09:00 Urine Color Yellow 06/07/22 10:08 Urine Appearance Clear (Clear) 06/07/22 10:08 Urine pH 5.0 (4.5-7.5) 06/07/22 10:08 Ur Specific [place] 1.029 (1.000-1.030) 06/07/22 10:08 Urine Protein 1+ (Negative) H 06/07/22 10:08 Urine Glucose (UA) 3+ (Negative) H 06/07/22 10:08 Urine Ketones 4+ (Negative) H 06/07/22 10:08 Urine Blood Trace (Negative) H 06/07/22 10:08 Urine Nitrite Negative (Negative) 06/07/22 10:08 Urine Bilirubin Negative (Negative) 06/07/22 10:08 Urine Urobilinogen Negative (Negative) 06/07/22 10:08 Ur Leukocyte Esterase Negative (Negative) 06/07/22 10:08 Urine WBC (Auto) 1-5 /hpf (0-5) 06/07/22 10:08 Urine RBC (Auto) 0-4 /hpf (0-4) 06/07/22 10:08 U Hyaline Cast (Auto) 1-5 /lpf (0-5) 06/07/22 10:08 U Epithel Cells (Auto) >30 /lpf (0-5) H 06/07/22 10:08 Urine Bacteria (Auto) 1+ (Negative) H 06/07/22 10:08 Impressions Chest X-Ray 06/07/22 08:59 XR chest 1V portable HISTORY: 66 years-old Female weakness acute weakness COMPARISON: Chest radiograph 05/06/2022, CTA chest 01/22/2022. TECHNIQUE: Portable AP view of the chest FINDINGS: Cardiac silhouette is upper limits of normal in size. Bilateral hilar prominence is similar to prior, likely secondary to normal pulmonary vasculature. No pneumothorax, pleural effusion, airspace consolidation or overt pulmonary edema. Degenerative changes of the shoulders and spine. IMPRESSION: No acute process. ACT 112: Negative or not required by law. The above report was generated using voice recognition software. It may contain grammatical, syntax or spelling errors. Electronically signed by: Joaquin Arthur M.D. 06/07/2022 9:27 AM Code Status & VTE Plan VTE Prophylaxis Plan VTE Prophylaxis will be ordered: Yes
[2022-06-07] MEDS ORDERED: GLUCOSE 10 TAB/TUBE PO PRN (11:00)
[2022-06-07] MEDS ORDERED: GLUCOSE 40% GEL 15 GM TUBE PO PRN (11:00)
[2022-06-07] MEDS ORDERED: GLUCAGON FOR INJ 1 MG VIAL IM PRN (11:00)
[2022-06-07] MEDS ORDERED: DEXTROSE 50% 50 ML SYRINGE IV PRN (11:00)
[2022-06-07] MEDS ORDERED: CARBOHYDRATES FOR HYPOGLYCEMIA PO PRN (11:00)
[2022-06-07] MEDS: SODIUM BICARBONATE 8.4% 150 MEQ in WATER, STERILE 1,000 ML IV SCH ×2 (11:04→20:56)
[2022-06-07 12:47] LABS: Estimated Average Glucose 372 mg/dl; Hemoglobin A1C 14.6 % (4.5-5.6)
[2022-06-07] MEDS ORDERED: ICU PROTOCOL FOR HYPERGLYCEMIA PRN (13:24)
[2022-06-07] MEDS: INSULIN ASPART PER UNIT SC SCH ×3 (13:38→20:54)
[2022-06-07 14:02] LABS: BUN Creatinine Ratio 14.8 (10-20); Calcium 8.6 mg/dl (8.5-10.1); Creatinine Clr Calc Pharmacy 53.4 ml/min; Est GFR (African American) 61.9 ml/min; Est GFR (Non-African American) 53.5 ml/min; Magnesium 1.9 mg/dl (1.7-2.4); Phosphorus 2.2 mg/dl (2.5-4.9); Potassium 3.2 mmol/L (3.5-5.1)
[2022-06-07] MEDS ORDERED: POTASSIUM PHOS 3 MMOL/1 ML INFUSION IV STA ×2 (14:06→20:36)
[2022-06-07] MEDS ORDERED: lisinopril 5 MG TAB PO ONE (14:08)
[2022-06-07] MEDS ORDERED: Nursing to Pharmacy Communication SCH (14:15)
[2022-06-07] MEDS ORDERED: POTASSIUM CHLORIDE / WTR 10 MEQ/100 ML PLCT IV SCH (14:15)
[2022-06-07] MEDS ORDERED: POTASSIUM CHLORIDE 40 MEQ in SODIUM CHLORIDE 0.9% 1000ML 1,000 ML IV SCH (14:30)
[2022-06-07] MEDS: PANTOprazole 40 MG in SYRINGE 0 ML IV SCH (14:42)
[2022-06-07] MEDS ORDERED: POTASSIUM PHOSPHATE 24 MMOL in SODIUM CHLORIDE 0.9% 500 ML IV ONE ×2 (14:45→21:00)
[2022-06-07 14:51] LABS: HCO3 ABG 7 mmol/L (19-24); Oxygen Saturation ABG 96.5 % (90-95); PCO2 ABG 16 mmHg (35-46); PO2 ABG 67 mmHg (80-95); pH ABG 7.24 (7.35-7.45)
[2022-06-07] MEDS: NORMOSOL-R 1,000 ML IV SCH ×2 (15:04→15:05)
[2022-06-07 15:43] LABS: Magnesium 1.7 mg/dl (1.7-2.4); Phosphorus 1.8 mg/dl (2.5-4.9)
[2022-06-07 16:04] LABS: Allen Test Pos (Pos)
[2022-06-07] MEDS: POTASSIUM CHLORIDE 40 MEQ in D5W AND NSS 1,000 ML IV SCH (16:07)
[2022-06-07] MEDS: MAGNESIUM SULFATE / D5W 1 GM/100 ML BAG IV SCH ×2 (16:07→17:46)
[2022-06-07 16:47] LABS: BUN Creatinine Ratio 18.7 (10-20); Calcium 8.3 mg/dl (8.5-10.1); Creatinine Clr Calc Pharmacy 63.4 ml/min; Est GFR (African American) 76.2 ml/min; Est GFR (Non-African American) 65.7 ml/min; Potassium 3.7 mmol/L (3.5-5.1)
[2022-06-07] MEDS ORDERED: NORMOSOL-R 1,000 ML IV ONE (19:25)
[2022-06-07 19:44] LABS: Base Excess VBG -12.7 mEq/L; HCO3 VBG 11 mmol/L; Oxygen Saturation VBG 91.3 %; PCO2 VBG 22 mmHg (38-50); PO2 VBG 60 mmHg; pH VBG 7.32 (7.36-7.41)
[2022-06-07 20:20] LABS: BUN Creatinine Ratio 18.5 (10-20); Calcium 8.2 mg/dl (8.5-10.1); Creatinine Clr Calc Pharmacy 62.7 ml/min; Est GFR (African American) 75.2 ml/min; Est GFR (Non-African American) 64.9 ml/min; Magnesium 2.3 mg/dl (1.7-2.4); Phosphorus 2.4 mg/dl (2.5-4.9); Potassium 3.4 mmol/L (3.5-5.1)
[2022-06-07] MEDS: traZODone HCL 50 MG TAB PO SCH (20:45)
[2022-06-07] MEDS: ENOXAPARIN INJ 40 MG/0.4 ML SYR SQ SCH (20:55)
--- NOTE | 2022-06-07 23:07 | Electrocardiogram Report ---
Test Reason : Blood Pressure : / mmHG Vent. Rate : 137 BPM Atrial Rate : 137 BPM P-R Int : 156 ms QRS Dur : 096 ms QT Int : 274 ms P-R-T Axes : 076 059 018 degrees QTc Int : 413 ms Poor data quality, interpretation may be adversely affected Sinus tachycardia Possible Left atrial enlargement Poor R wave progression, consider anterior NH vs. lead placement vs. LVH Abnormal ECG When compared with ECG of 06-MAY-2022 21:03, Criteria for Inferior infarct are no longer Present Confirmed by Miguel Tobar ([id number] on 06/07/2022 11:06:58 PM Referred By: Confirmed By:Miguel Tobar
[2022-06-08] MEDS: POTASSIUM CHLORIDE 40 MEQ in D5W AND NSS 1,000 ML IV SCH ×2 (01:08→07:29)
[2022-06-08 02:59] LABS: Phosphorus 2.6 mg/dl (2.5-4.9)
[2022-06-08 03:24] LABS: Hematocrit (blood only) 34.4 % (34.1-44.9); Hemoglobin 11.9 g/dl (12.0-16.0); Mean Corpuscular Hemoglobin 30.6 pg (25.0-34.0); Mean Corpuscular Hgb Conc 34.6 g/dL (32.0-36.0); Mean Corpuscular Volume 88.4 fL (80.0-100.0); Mean Platelet Volume 11.3 fL (9.4-12.3); Platelet Count 302 K/uL (130-400); RDW Coefficient of Variation 13.7 % (11.5-14.5); RDW Standard Deviation 44.6 fL (36.4-46.3); Red Blood Count 3.89 M/uL (3.93-5.22); White Blood Count 12.61 K/ul (4.8-10.8)
[2022-06-08 03:54] LABS: Basophils # (auto) 0.03 K/uL (0-0.2); Basophils % (auto) 0.3 %; Eosinophils # (auto) 0.08 K/uL (0-0.50); Eosinophils % (auto) 0.7 %; Hematocrit (blood only) 33.5 % (34.1-44.9); Hemoglobin 11.6 g/dl (12.0-16.0); Immature Granulocytes # (auto) 0.04 K/uL (0.00-0.02); Immature Granulocytes % (auto) 0.3 %; Lymphocytes # (auto) 3.03 K/uL (1.2-3.4); Lymphocytes % (auto) 25.7 %; Mean Corpuscular Hemoglobin 30.9 pg (25.0-34.0); Mean Corpuscular Hgb Conc 34.6 g/dL (32.0-36.0); Mean Corpuscular Volume 89.1 fL (80.0-100.0); Mean Platelet Volume 11.1 fL (9.4-12.3); Monocytes # (auto) 1.55 K/uL (0.24-0.82); Monocytes % (auto) 13.1 %; Neutrophils # (auto) 7.07 K/uL (1.4-6.5); Neutrophils % (auto) 59.9 %; Platelet Count 289 K/uL (130-400); RDW Coefficient of Variation 13.6 % (11.5-14.5); RDW Standard Deviation 44.5 fL (36.4-46.3); Red Blood Count 3.76 M/uL (3.93-5.22)
[2022-06-08 04:15] LABS: BUN Creatinine Ratio 17.6 (10-20); Calcium 7.3 mg/dl (8.5-10.1); Creatinine Clr Calc Pharmacy 84.9 ml/min; Est GFR (African American) 105.6 ml/min; Est GFR (Non-African American) 91.2 ml/min
[2022-06-08] MEDS ORDERED: POTASSIUM CHLORIDE 20 MEQ/15 ML UDC PO STA (04:24)
[2022-06-08] MEDS: POTASSIUM CHLORIDE / WTR 10 MEQ/100 ML PLCT IV SCH ×4 (05:02→08:45)
[2022-06-08] MEDS: LEVOTHYROXINE SODIUM 125 MCG TABLET PO SCH (05:42)
[2022-06-08] MEDS ORDERED: PANTOprazole 40 MG TAB PO SCH (06:30)
[2022-06-08] MEDS: INSULIN ASPART PER UNIT SC SCH ×4 (07:29→21:38)
[2022-06-08] MEDS: SODIUM BICARBONATE 8.4% 150 MEQ in WATER, STERILE 1,000 ML IV SCH (07:29)
[2022-06-08] MEDS: lisinopril 5 MG TAB PO SCH (08:46)
[2022-06-08] MEDS: FLUoxetine HCL 20 MG CAP PO SCH (09:51)
[2022-06-08] MEDS: ASPIRIN 81 MG ECTAB PO SCH (09:52)
[2022-06-08] MEDS: SIMVASTATIN 10 MG TAB PO SCH (09:52)
--- NOTE | 2022-06-08 10:23 | Critical Care Progress Note ---
Date of Service June 08, 2022 Assessment & Plan (1) High anion gap metabolic acidosis: (2) DKA (diabetic ketoacidosis): (3) JENNY (acute kidney injury): Plan Chest x-ray 06/07/2022 personally reviewed: Portable film, fair inspiratory effort, bilateral costophrenic and cardiophrenic angles are clean, mild pulmonary vascular congestion appreciated. No clear lung infiltrate -- DKA Continue with insulin drip until anion gap closes Decreasing blood glucose no more than 100 in an hour Replace potassium IV when potassium level between 3.3-5.3 BMP every 4 hours Continue with IV fluids HbA1c 14 EKG 06/07/2022: Sinus tachycardia, P pulmonale, mild ST elevation in lead III (chronic since 01/2022), poor R wave progression on the lateral leads --Sinus pause 8 seconds No recurrence he Patient is not on any negative inotropes We will get cardiology involved -- S/p HAGMA Delta-delta: 0.8, gap plus nongap Gap is from ketoacidosis, nongap is most likely from urinary losses, follow-up urine lites Monitor -- Elevated --> trending down WBC Likely reactive to DKA UA shows only +1 bacteria but negative for nitrate and leukocyte esterase --DAVION On CPAP at home --Hypothyroidism Continue with levothyroxine --Anxiety/depression Continue with fluoxetine and trazodone --Dyslipidemia/hypertension Continue with simvastatin and lisinopril --Prophylaxis VTE: Lovenox GI: Protonix Lines: Peripheral Diet: N.p.o. Plan: In/out: +6 L, urine output 501. Please make note patient does not have a good urine output measurement DC bicarb drip Potassium being replaced. Patient is anion gap is closed. Would start bridging to subcu insulin Cardiology has been consulted for sinus pause with the patient had overnight. Once the insulin drip is stopped DC IV fluids and give patient diet Please note the above document was generated using voice recognition software. It may contain grammatical, syntax or spelling errors.Any formal questions or concerns about the content, text or information contained within the body of this dictation should be directly addressed to the provider for clarification. Admission and Anticipated Discharge Date Admission Date: June 07, 2022 Subjective Patient seen and examined at bedside. No acute distress Overnight patient did have an 8-second sinus pause. Patient was not sleeping at that time. She did go little bit unresponsive. No intervention was needed She denies any headache, no nausea, no vomiting No chest pain, no shortness of breath. She does complain of mild gastric tenderness but significantly improved compared to yesterday. She is asking for something to eat/drink Review of Systems Review of Systems: All systems reviewed & are unremarkable except as noted in Subjective Physical Exam Physical Exam: Constitutional: No acute distress HEENT: EOMI, PERRLA Respiratory system: Good air entry bilaterally, no wheeze, rhonchi, mild crackles bilateral lower lobes CVS: S1-S2 positive, no murmurs or gallops Abdomen: Soft, nontender, nondistended, positive bowel sounds x4, obese Extremities: +2 pulses bilaterally radialis/ dorsalis pedis, no cyanosis, no edema Neuro: Awake alert oriented x3 Psych: Normal mood and affect G/U: No Rahman Skin: no rashes, warm and dry Lymphatic: no cervical or axillary lymphadenopathy Results & Data Results & Data ([facility]) Vital Signs (Past 12 Hours) Vital Signs Temp Pulse Pulse Resp BP BP Pulse Ox 06/08/22 08:38 111/48 L 06/08/22 08:38 97 H 25 H 92 06/08/22 08:00 97 H 31 H 91 06/08/22 08:00 103/46 L 06/08/22 07:18 111/59 L 06/08/22 07:18 90 13 94 06/08/22 07:15 116/52 L 06/08/22 07:15 94 H 17 93 06/08/22 07:00 95 H 9 L 89 L 06/08/22 07:00 110/50 L 06/08/22 08:00 06/08/22 08:00 06/08/22 08:00 36.5 C 92 H 20 111/59 L 94 06/08/22 08:00 91 H 06/08/22 08:00 06/08/22 06:30 91 H 15 96 06/08/22 06:20 96 H 21 97 06/08/22 06:15 125/76 06/08/22 06:15 105 H 21 97 06/08/22 06:10 98 H 13 97 06/08/22 06:00 102 H 14 96 06/08/22 06:00 121/59 L 06/08/22 05:50 89 15 95 06/08/22 05:45 122/61 06/08/22 05:45 88 19 95 06/08/22 05:40 91 H 19 96 06/08/22 05:30 92 H 21 92 06/08/22 05:30 116/58 L 06/08/22 05:20 90 23 95 06/08/22 05:15 121/59 L 06/08/22 05:15 95 H 19 97 06/08/22 05:10 100 H 14 97 06/08/22 05:00 97 H 23 91 06/08/22 05:00 100/46 L 06/08/22 04:50 93 H 28 H 94 06/08/22 04:45 104/51 L 06/08/22 04:45 95 H 26 H 92 06/08/22 04:40 94 H 34 H 92 06/08/22 04:30 93 H 32 H 93 06/08/22 04:30 112/49 L 06/08/22 04:20 90 21 95 06/08/22 04:15 94 H 23 93 06/08/22 04:15 119/51 L 06/08/22 04:10 92 H 21 93 06/08/22 04:00 93 H 19 95 06/08/22 04:00 119/59 L 06/08/22 03:50 88 22 98 06/08/22 03:45 134/61 06/08/22 03:45 88 14 97 06/08/22 03:40 88 21 95 06/08/22 03:30 93 H 21 93 06/08/22 03:30 120/48 L 06/08/22 03:20 96 H 22 94 06/08/22 03:15 131/51 L 06/08/22 03:15 92 H 21 95 06/08/22 03:10 95 H 21 94 06/08/22 03:00 91 H 21 94 06/08/22 03:00 126/48 L 06/08/22 02:50 91 H 24 94 06/08/22 02:45 131/50 L 06/08/22 02:45 96 H 21 94 06/08/22 02:40 93 H 22 94 06/08/22 02:30 92 H 22 95 06/08/22 02:30 119/50 L 06/08/22 02:20 91 H 18 97 06/08/22 03:54 37.0 C 06/08/22 01:00 90 15 98 06/08/22 01:00 142/58 H 06/08/22 00:50 92 H 20 97 06/08/22 00:45 94 H 24 98 06/08/22 00:45 153/62 H 06/08/22 00:40 91 H 27 H 96 06/08/22 00:30 93 H 44 H 96 06/08/22 00:30 125/55 L 06/08/22 00:20 92 H 25 H 96 06/08/22 00:15 128/65 06/08/22 00:15 94 H 22 97 06/08/22 00:10 92 H 22 98 06/08/22 00:00 92 H 23 97 06/08/22 00:00 131/55 L 06/07/22 23:50 89 29 H 96 06/07/22 23:45 147/58 H 06/07/22 23:45 91 H 45 H 98 06/07/22 23:40 90 20 96 06/07/22 23:30 87 24 96 06/07/22 23:30 131/59 L 06/07/22 23:20 88 27 H 97 06/07/22 23:15 136/63 06/07/22 23:15 90 31 H 97 06/07/22 23:10 92 H 26 H 98 06/07/22 23:00 92 H 30 H 98 06/07/22 23:00 126/65 06/07/22 22:50 90 23 97 06/07/22 22:45 141/56 H 06/07/22 22:45 89 34 H 96 06/07/22 22:40 92 H 18 96 06/07/22 22:30 88 39 H 96 06/07/22 22:30 123/60 06/07/22 22:20 87 25 H 96 06/08/22 00:00 36.9 C O2 Del Method O2 Del Method 06/08/22 08:38 06/08/22 08:38 06/08/22 08:00 06/08/22 08:00 06/08/22 07:18 06/08/22 07:18 06/08/22 07:15 06/08/22 07:15 06/08/22 07:00 06/08/22 07:00 06/08/22 08:00 Room Air 06/08/22 08:00 Room Air 06/08/22 08:00 Room Air 06/08/22 08:00 06/08/22 08:00 Room Air 06/08/22 06:30 06/08/22 06:20 06/08/22 06:15 06/08/22 06:15 06/08/22 06:10 06/08/22 06:00 06/08/22 06:00 06/08/22 05:50 06/08/22 05:45 06/08/22 05:45 06/08/22 05:40 06/08/22 05:30 06/08/22 05:30 06/08/22 05:20 06/08/22 05:15 06/08/22 05:15 06/08/22 05:10 06/08/22 05:00 06/08/22 05:00 06/08/22 04:50 06/08/22 04:45 06/08/22 04:45 06/08/22 04:40 06/08/22 04:30 06/08/22 04:30 06/08/22 04:20 06/08/22 04:15 06/08/22 04:15 06/08/22 04:10 06/08/22 04:00 06/08/22 04:00 06/08/22 03:50 06/08/22 03:45 06/08/22 03:45 06/08/22 03:40 06/08/22 03:30 06/08/22 03:30 06/08/22 03:20 06/08/22 03:15 06/08/22 03:15 06/08/22 03:10 06/08/22 03:00 06/08/22 03:00 06/08/22 02:50 06/08/22 02:45 06/08/22 02:45 06/08/22 02:40 06/08/22 02:30 06/08/22 02:30 06/08/22 02:20 06/08/22 03:54 06/08/22 01:00 06/08/22 01:00 06/08/22 00:50 06/08/22 00:45 06/08/22 00:45 06/08/22 00:40 06/08/22 00:30 06/08/22 00:30 06/08/22 00:20 06/08/22 00:15 06/08/22 00:15 06/08/22 00:10 06/08/22 00:00 06/08/22 00:00 06/07/22 23:50 06/07/22 23:45 06/07/22 23:45 06/07/22 23:40 06/07/22 23:30 06/07/22 23:30 06/07/22 23:20 06/07/22 23:15 06/07/22 23:15 06/07/22 23:10 06/07/22 23:00 06/07/22 23:00 06/07/22 22:50 06/07/22 22:45 06/07/22 22:45 06/07/22 22:40 06/07/22 22:30 06/07/22 22:30 06/07/22 22:20 06/08/22 00:00 Laboratory Results 06/08/22 03:41 Coding Level of Care Code 85760 Subseq Hosp Care Lvl 3 Diagnoses High anion gap metabolic acidosis E87.2 DKA (diabetic ketoacidosis) E11.10 JENNY (acute kidney injury) N17.9
[2022-06-08 11:14] LABS: BUN Creatinine Ratio 11.5 (10-20); Calcium 7.5 mg/dl (8.5-10.1); Creatinine Clr Calc Pharmacy 77.2 ml/min; Est GFR (African American) 91.8 ml/min; Est GFR (Non-African American) 79.2 ml/min
[2022-06-08] MEDS ORDERED: LANTUS PER UNIT CHARGE SQ ONE (11:45)
[2022-06-08] MEDS: PANTOprazole 40 MG in SYRINGE 0 ML IV SCH (12:52)
--- NOTE | 2022-06-08 13:30 | Hospitalist Progress Note ---
Date of Service June 08, 2022 Assessment & Plan (1) DKA (diabetic ketoacidosis): (2) High anion gap metabolic acidosis: Plan: Diabetic ketoacidosis High anion gap metabolic acidosis secondary to above ? Compliance HbA1C: 14.6 Presented with glucose 589, anion gap 28 and pH 7.05 And anion gap closed IV bicarbonate discontinued IV insulin>>>transitioned to SQ Started on diet Received IV fluids Appreciate Grant Coordinator help Diabetic education consult Replace electrolytes as needed Sinus pause Avoid AV toby blocking agents Monitor on telemetry Cardiology consulted Abnormal UA Asymptomatic Urine culture pending Hyponatremia Pseudohyponatremia from hyperglycemia. monitor Leukocytosis Possible related to stress induce due to the DKA Follow up Urine Culture COVID 19 Negative CXR showed no acute finding Blood Culture: Negative to date Leukocytosis trending down Afebrile Hypertensive urgency Likely situational BP on admission BP 217/125 Received IV labetalol BP Stable Continue Lisinopril Hyperlipidemia: Continue statin GERD Continue PPI Hypothyroidism Continue Levothyroxine DVT Px: Lovenox SQ Code status Full code Admission and Anticipated Discharge Date Admission Date: June 07, 2022 Subjective Patient is seen and examined at bedside States feeling tired and has insomnia Was noted to have 8-second pause overnight Denies any chest pain, shortness of breath, dizziness, nausea, abdominal pain Review of Systems Review of Systems: All systems reviewed & are unremarkable except as noted in Subjective Physical Exam Physical Exam: Physical Exam: Vitals signs as noted above General Appearance:Obese, no apparent distress Head: normocephalic, Atraumatic Eyes: normal inspection, EOMI Neck: supple, Trachea midline Respiratory/Chest: Normal breath sounds, CTA, No accessory muscle use Cardiovascular: S1, S2, No murmur Abdomen/GI:Soft, Non tender, Bowel sounds present Extremities/Musculoskeletal:normal inspection, Trace pedal edema Neurologic/Psych:AAOX3, grossly no focal neurological deficits Skin: normal color, warm Results & Data Results & Data ([facility]) Vital Signs (Past 12 Hours) Vital Signs Temp Pulse Pulse Resp BP BP Pulse Ox 06/08/22 12:00 81 25 H 92 06/08/22 12:00 124/56 L 06/08/22 11:00 87 22 90 06/08/22 11:00 110/55 L 06/08/22 10:00 89 20 94 06/08/22 10:00 135/63 06/08/22 09:38 139/61 06/08/22 09:38 95 H 18 06/08/22 09:00 108 H 14 100 06/08/22 08:38 111/48 L 06/08/22 08:38 97 H 25 H 92 06/08/22 08:00 97 H 31 H 91 06/08/22 08:00 103/46 L 06/08/22 07:18 111/59 L 06/08/22 07:18 90 13 94 06/08/22 07:15 116/52 L 06/08/22 07:15 94 H 17 93 06/08/22 07:00 95 H 9 L 89 L 06/08/22 07:00 110/50 L 06/08/22 08:00 06/08/22 08:00 06/08/22 08:00 36.5 C 92 H 20 111/59 L 94 06/08/22 08:00 91 H 06/08/22 08:00 06/08/22 06:30 91 H 15 96 06/08/22 06:20 96 H 21 97 06/08/22 06:15 125/76 06/08/22 06:15 105 H 21 97 06/08/22 06:10 98 H 13 97 06/08/22 06:00 102 H 14 96 06/08/22 06:00 121/59 L 06/08/22 05:50 89 15 95 06/08/22 05:45 122/61 06/08/22 05:45 88 19 95 06/08/22 05:40 91 H 19 96 06/08/22 05:30 92 H 21 92 06/08/22 05:30 116/58 L 06/08/22 05:20 90 23 95 06/08/22 05:15 121/59 L 06/08/22 05:15 95 H 19 97 06/08/22 05:10 100 H 14 97 06/08/22 05:00 97 H 23 91 06/08/22 05:00 100/46 L 06/08/22 04:50 93 H 28 H 94 06/08/22 04:45 104/51 L 06/08/22 04:45 95 H 26 H 92 06/08/22 04:40 94 H 34 H 92 06/08/22 04:30 93 H 32 H 93 06/08/22 04:30 112/49 L 06/08/22 04:20 90 21 95 06/08/22 04:15 94 H 23 93 06/08/22 04:15 119/51 L 06/08/22 04:10 92 H 21 93 06/08/22 04:00 93 H 19 95 06/08/22 04:00 119/59 L 06/08/22 03:50 88 22 98 06/08/22 03:45 134/61 06/08/22 03:45 88 14 97 06/08/22 03:40 88 21 95 06/08/22 03:30 93 H 21 93 06/08/22 03:30 120/48 L 06/08/22 03:20 96 H 22 94 06/08/22 03:15 131/51 L 06/08/22 03:15 92 H 21 95 06/08/22 03:10 95 H 21 94 06/08/22 03:00 91 H 21 94 06/08/22 03:00 126/48 L 06/08/22 02:50 91 H 24 94 06/08/22 02:45 131/50 L 06/08/22 02:45 96 H 21 94 06/08/22 02:40 93 H 22 94 06/08/22 02:30 92 H 22 95 06/08/22 02:30 119/50 L 06/08/22 02:20 91 H 18 97 06/08/22 03:54 37.0 C O2 Del Method O2 Del Method 06/08/22 12:00 06/08/22 12:00 06/08/22 11:00 06/08/22 11:00 06/08/22 10:00 06/08/22 10:00 06/08/22 09:38 06/08/22 09:38 06/08/22 09:00 06/08/22 08:38 06/08/22 08:38 06/08/22 08:00 06/08/22 08:00 06/08/22 07:18 06/08/22 07:18 06/08/22 07:15 06/08/22 07:15 06/08/22 07:00 06/08/22 07:00 06/08/22 08:00 Room Air 06/08/22 08:00 Room Air 06/08/22 08:00 Room Air 06/08/22 08:00 06/08/22 08:00 Room Air 06/08/22 06:30 06/08/22 06:20 06/08/22 06:15 06/08/22 06:15 06/08/22 06:10 06/08/22 06:00 06/08/22 06:00 06/08/22 05:50 06/08/22 05:45 06/08/22 05:45 06/08/22 05:40 06/08/22 05:30 06/08/22 05:30 06/08/22 05:20 06/08/22 05:15 06/08/22 05:15 06/08/22 05:10 06/08/22 05:00 06/08/22 05:00 06/08/22 04:50 06/08/22 04:45 06/08/22 04:45 06/08/22 04:40 06/08/22 04:30 06/08/22 04:30 06/08/22 04:20 06/08/22 04:15 06/08/22 04:15 06/08/22 04:10 06/08/22 04:00 06/08/22 04:00 06/08/22 03:50 06/08/22 03:45 06/08/22 03:45 06/08/22 03:40 06/08/22 03:30 06/08/22 03:30 06/08/22 03:20 06/08/22 03:15 06/08/22 03:15 06/08/22 03:10 06/08/22 03:00 06/08/22 03:00 06/08/22 02:50 06/08/22 02:45 06/08/22 02:45 06/08/22 02:40 06/08/22 02:30 06/08/22 02:30 06/08/22 02:20 06/08/22 03:54 Laboratory Results Short CBC 06/08/22 06/08/22 Range/Units 02:11 03:41 WBC 12.61 H 11.80 H (4.8-10.8) K/ul Hgb 11.9 L D 11.6 L (12.0-16.0) g/dl Hct 34.4 33.5 L (34.1-44.9) % Plt Count 302 289 (130-400) K/uL BMP 06/07/22 06/07/22 06/07/22 12:58 16:08 19:33 Sodium 134 L 132 L 133 L Potassium 3.2 L D 3.7 3.4 L Chloride 102 103 104 Carbon Dioxide 8 L* 8 L* 12 L BUN 16 17 17 Creatinine 1.08 0.91 0.92 Glucose 323 H* 208 H 245 H Calcium 8.6 8.3 L 8.2 L 06/08/22 06/08/22 03:41 09:41 Sodium 135 L 135 L Potassium 3.0 L 4.0 D Chloride 107 106 Carbon Dioxide 19 L 18 L BUN 12 9 Creatinine 0.68 0.78 Glucose 155 H 273 H Calcium 7.3 L 7.5 L
[2022-06-08 15:54] LABS: BUN Creatinine Ratio 8.2 (10-20); Calcium 7.5 mg/dl (8.5-10.1); Creatinine Clr Calc Pharmacy 62.1 ml/min; Est GFR (African American) 70.5 ml/min; Est GFR (Non-African American) 60.9 ml/min; Potassium 3.6 mmol/L (3.5-5.1)
[2022-06-08] MEDS ORDERED: POTASSIUM CHLORIDE CRTAB 20 MEQ TABCR PO ONE (17:22)
[2022-06-08 18:54] LABS: Lyme Ab IgG w/WB Rflx Negative (Negative); Lyme Ab IgM w/WB Rflx Negative (Negative)
[2022-06-08] MEDS: ENOXAPARIN INJ 40 MG/0.4 ML SYR SQ SCH (21:36)
[2022-06-08] MEDS: traZODone HCL 50 MG TAB PO SCH (21:37)
[2022-06-08 22:12] LABS: BUN Creatinine Ratio 10.9 (10-20); Calcium 7.9 mg/dl (8.5-10.1); Creatinine Clr Calc Pharmacy 65.5 ml/min; Est GFR (African American) 75.2 ml/min; Est GFR (Non-African American) 64.9 ml/min; Potassium 3.4 mmol/L (3.5-5.1)
[2022-06-09] MEDS: INSULIN ASPART PER UNIT SC SCH ×7 (00:17→22:16)
[2022-06-09] MEDS: LEVOTHYROXINE SODIUM 125 MCG TABLET PO SCH (05:58)
[2022-06-09 07:24] LABS: Basophils # (auto) 0.04 K/uL (0-0.2); Basophils % (auto) 0.5 %; Eosinophils # (auto) 0.24 K/uL (0-0.50); Eosinophils % (auto) 2.7 %; Hematocrit (blood only) 31.2 % (34.1-44.9); Hemoglobin 10.6 g/dl (12.0-16.0); Immature Granulocytes # (auto) 0.01 K/uL (0.00-0.02); Immature Granulocytes % (auto) 0.1 %; Lymphocytes # (auto) 3.96 K/uL (1.2-3.4); Lymphocytes % (auto) 44.9 %; Mean Corpuscular Hemoglobin 30.4 pg (25.0-34.0); Mean Corpuscular Volume 89.4 fL (80.0-100.0); Mean Platelet Volume 12.3 fL (9.4-12.3); Monocytes # (auto) 0.92 K/uL (0.24-0.82); Monocytes % (auto) 10.4 %; Neutrophils # (auto) 3.64 K/uL (1.4-6.5); Neutrophils % (auto) 41.4 %; Platelet Count 233 K/uL (130-400); RDW Coefficient of Variation 14.3 % (11.5-14.5); RDW Standard Deviation 46.4 fL (36.4-46.3); Red Blood Count 3.49 M/uL (3.93-5.22); White Blood Count 8.81 K/ul (4.8-10.8)
[2022-06-09] MEDS: LANTUS PER UNIT CHARGE SQ SCH ×2 (08:03→22:16)
[2022-06-09] MEDS: FLUoxetine HCL 20 MG CAP PO SCH (08:13)
[2022-06-09] MEDS: lisinopril 5 MG TAB PO SCH (08:14)
[2022-06-09] MEDS: SIMVASTATIN 10 MG TAB PO SCH (08:14)
[2022-06-09] MEDS: ASPIRIN 81 MG ECTAB PO SCH (08:14)
[2022-06-09] MEDS ORDERED: POTASSIUM CHLORIDE CRTAB 20 MEQ TABCR PO ONE (08:41)
--- NOTE | 2022-06-09 09:51 | Electrocardiogram Report ---
Test Reason : Blood Pressure : / mmHG Vent. Rate : 064 BPM Atrial Rate : 064 BPM P-R Int : 174 ms QRS Dur : 090 ms QT Int : 484 ms P-R-T Axes : 074 048 061 degrees QTc Int : 499 ms Poor data quality, interpretation may be adversely affected Normal sinus rhythm Prolonged QT Abnormal ECG When compared with ECG of 07-JUN-2022 08:34, Vent. rate has decreased BY 73 BPM Nonspecific T wave abnormality no longer evident in Inferior leads Confirmed by Miguel Tobar ([id number]) on 06/09/2022 9:51:29 AM Referred By: REFERRED SELF Confirmed By:Miguel Tobar
--- NOTE | 2022-06-09 10:05 | Cardiology Consultation ---
Date of Consultation June 09, 2022 Assessment & Plan (1) DKA (diabetic ketoacidosis): (2) Uncontrolled type 1 diabetes mellitus with hyperglycemia: (3) High anion gap metabolic acidosis: (4) Dehydration: (5) GERD (gastroesophageal reflux disease): (6) Sinus pause: Plan The patient reportedly experienced a sinus pause in the setting of DKA with severe metabolic derangements. No further episodes since admission to telemetry. No arrhythmias. No cardiac complaints. No further cardiac testing or intervention is necessary. Will defer treatment of uncontrolled diabetes to the primary team. History of Present Illness Reason for Consultation: Sinus pause Requesting Physician: Dr. Bhakta Attending Physician: Roman Bhakta MD History of Present Illness It was my pleasure to see Ms. Mckeon in cardiac consultation today June 09, 2022. She is a very pleasant 66-year-old woman who presented to [facility] on 06/07/2022 with complaints of nausea, vomiting and elevated glucose levels. Upon arrival she was found to be in DKA and started on appropriate treatment. On telemetry monitoring in the ER she reportedly had a sinus pause, unfortunately, telemetry strips are not available for review. Since admission to telemetry, equipment monitor phototypesetting reviewed, no arrhythmias with occasional PACs and no further sinus pauses. Currently the patient states that she feels tired but notes that her nausea is improving and she denies any complaints of chest pain, shortness of breath, palpitations, lightheadedness or dizziness. Allergies Allergy/AdvReac Type Severity Reaction Status Date / Time dextromethorphan Allergy Severe Difficulty Verified 06/07/22 10:07 Breathing doxylamine Allergy Severe Difficulty Verified 06/07/22 10:07 Breathing pseudoephedrine Allergy Severe Difficulty Verified 06/07/22 10:07 Breathing glyburide Allergy Intermediate RASH Verified 06/07/22 10:07 tetanus toxoid, adsorbed Allergy Intermediate painful Verified 06/07/22 10:07 joints Ethanol Allergy Severe Difficulty Uncoded 06/07/22 10:07 Breathing Home Medications Medication Instructions Recorded Confirmed Type aspirin 81 mg tablet,delayed 81 mg PO DAILY 01/29/21 06/07/22 History release (Adult Low Dose Aspirin) diphenhydramine HCl 25 mg capsule 25 mg PO HS PRN Sleep 01/29/21 06/07/22 History fluocinonide 0.05 % topical 1 applic topical DAILY 01/29/21 06/07/22 History solution fluoxetine 40 mg capsule 40 mg PO DAILY 01/29/21 06/07/22 History levothyroxine 125 mcg tablet 125 mcg PO DAILY 01/29/21 06/07/22 History lisinopril 5 mg tablet 5 mg PO DAILY 01/29/21 06/07/22 History Dexcom G6 Delivery Coordinator (blood-glucose #9 ea 03/27/21 06/07/22 Rx meter,continuous) Dexcom G6 Transmitter #1 ea 03/27/21 06/07/22 Rx (blood-glucose transmitter) lansoprazole 30 mg capsule,delayed 30 mg PO DAILYBB 06/03/21 06/07/22 History release zolpidem 10 mg tablet 10 mg PO HS PRN Sleep 06/03/21 06/07/22 History OneTouch Ultra Test (blood sugar #400 ea 07/10/21 06/07/22 Rx diagnostic) blood-glucose meter (OneTouch #1 ea 03/20/22 06/07/22 Rx Ultra2 Meter kit) insulin aspart U-100 100 unit/mL See Rx Instructions continuous 04/24/22 06/07/22 Rx subcutaneous solution (Novolog subcutaneous infusion DAILY #90 mL U-100 Insulin aspart) simvastatin 10 mg tablet 10 mg PO DAILY 05/06/22 06/07/22 History trazodone 50 mg tablet 50 mg PO HS 05/06/22 06/07/22 History Patient History Medical History DKA (diabetic ketoacidosis) GERD (gastroesophageal reflux disease) Mixed hyperlipidemia Presence of insulin pump Uncontrolled type 1 diabetes mellitus with hyperglycemia Surgical History History of cholecystectomy History of hysterectomy History of shoulder surgery History of tonsillectomy Family History Grandmother (Maternal) Diabetes Mother Hypertension Heart disease Grandmother (Paternal) Diabetes Social History Smoking Status: Never smoker Second Hand Exposure: No; Hx Alcohol Use: No Hx Substance Use: No Preferred Language: Egyptian Communication Ability: Effective Applications Programmer Required: No Beliefs That Will Affect Care: None marital status: Unknown Current Living Situation: Family Current Living Situation Comment: Grandson Other Information That Helps Us Care for You: No Feels Safe at Home: Yes Safety Concerns: Feels Safe At This Time Assistive Devices: None Review of Systems Review of Systems: All systems reviewed & are unremarkable except as noted in HPI & below Physical Exam Physical Exam: General: Awake, alert and oriented x 3. No acute distress. HEENT: Normocephalic, atraumatic. Pupils equal, round and reactive to light and accommodation. Extraocular muscles are intact. Anicteric sclera. Moist mucous membranes. Neck: No JVD. No bruit. Cardiovascular: Regular. Positive S-4. Normal S-1 and S-2. No S-3. No murmurs or rubs. Pulmonary: Clear to auscultation B/L. No rales, rhonchi or wheezing Abdomen: Bowel sounds x 4, soft. No rebound, guarding or tenderness. No organomegaly. Extremities: No clubbing, cyanosis or edema. +2 pedal pulses bilaterally. Skin: Warm and dry. Results & Data ([facility]) Vital Signs (Past 12 Hours) Vital Signs Temp Pulse Pulse Resp BP Pulse Ox O2 Del Method 06/09/22 07:42 36.6 C 16 114/65 93 Room Air 06/09/22 05:27 36.9 C 82 18 120/63 96 Room Air 06/09/22 00:09 36.5 C 73 18 118/63 97 Room Air 06/08/22 23:00 79
--- NOTE | 2022-06-09 10:27 | Pharmacy Report ---
Pharmacy Glycemic Short Note 2 - Date of Service June 09, 2022 - Glycemic Short BSG Results (Last 24 hours): 06/08/22 06/08/22 06/08/22 09:41 10:56 11:58 Glucose 273 H POC Glucose 288 H 303 H* 06/08/22 06/08/22 06/08/22 15:27 16:04 21:04 Glucose 256 H POC Glucose 212 H 121 H 06/08/22 06/09/22 06/09/22 21:42 00:13 04:05 Glucose 119 H POC Glucose 93 99 06/09/22 07:11 Glucose POC Glucose 84 OUTPATIENT ANTIDIABETIC REGIMEN: * Novolog via Tandem T-slim insulin pump * Basal: 2.5 units x 24 hours * Bolus: ICR 3, CF 10, Target 110 mg/dL * HbA1c = 14.6% (06/07/22) ASSESSMENT: * Patient admitted 06/07/22 with DKA. Pharmacy was consulted that day to assist with inpatient glycemic management. Patient is type 1 diabetic on insulin pump at home. Multiple admissions (almost monthly) for DKA since January 2022. Was just here with DKA at end of April. Problem was detected with insulin pump at that time and patient was to receive new pump from career placement specialist. This bout of DKA resulted from battery dying on insulin pump. Also noted that HbA1c has worsening since end of April (13.5--14.6). * Started on insulin drip 06/07/22. BSGs trended down quickly and drip was shut off around noon on 06/08/22 following the administration of 50 units of Lantus. * Fasting BSG was 84 mg/dL this AM. Will reduced basal insulin by 20% today and divide it BID. No changes to Novolog for now but will monitor BSGs closely today. * Spoke with patient today while GENEVA Buck was present. Unlikely that grandson can bring in pump supplies so will continue with basal bolus. PLAN FOR INPATIENT GLYCEMIC CONTROL: * Hold insulin pump * Basal insulin * Lantus 20 units SC BID * Bolus insulin * NovoLog per scale ACHS or Q6hrs while NPO * Goal Range: Low 110 mg/dL - High 140 mg/dL * Correction Factor: 8 mg/dL/unit * Nutritional / Prandial insulin per carb ratio of 1 unit per 3 grams CHO consumed
[2022-06-09] MEDS ORDERED: ZOLPIDEM TARTRATE 5 MG TAB PO PRN (11:27)
[2022-06-09] MEDS: PANTOprazole 40 MG in SYRINGE 0 ML IV SCH (11:57)
--- NOTE | 2022-06-09 15:54 | Hospitalist Progress Note ---
Date of Service June 09, 2022 Assessment & Plan (1) DKA (diabetic ketoacidosis): (2) High anion gap metabolic acidosis: Plan: Diabetic ketoacidosis High anion gap metabolic acidosis secondary to above ? Compliance HbA1C: 14.6 Presented with glucose 589, anion gap 28 and pH 7.05 And anion gap closed IV bicarbonate discontinued IV insulin>>>transitioned to SQ Tolerates diet Received IV fluids Appreciate Stamp Pad Finisher help Appreciate Diabetic education Input Replace electrolytes as needed Multiple occlusions on daily basis noted on insulin pump review. Also patient boluses infrequently for her meals. Plan to reconnect insulin pump tomorrow May need to change infusion set if patient has further occlusions on pump Sinus pause Avoid AV toby blocking agents Monitor on telemetry Appreciate Cardiology Input No recurrence on teletypesetter monitor Abnormal UA Asymptomatic Urine culture lactobacillus Hyponatremia Pseudohyponatremia from hyperglycemia. monitor Leukocytosis Possible related to stress induce due to the DKA Follow up Urine Culture COVID 19 Negative CXR showed no acute finding Blood Culture: Negative to date Afebrile Resolved Hypertensive urgency Likely situational BP on admission BP 217/125 Received IV labetalol BP Stable Continue Lisinopril Hyperlipidemia: Continue statin GERD Continue PPI Hypothyroidism Continue Levothyroxine DVT Px: Lovenox SQ Code status Full code Admission and Anticipated Discharge Date Admission Date: June 07, 2022 Subjective Patient is seen and examined at bedside Reports poor sleep overnight No complaints otherwise Denies any chest pain, shortness of breath, dizziness, nausea, abdominal pain Review of Systems Review of Systems: All systems reviewed & are unremarkable except as noted in Subjective Physical Exam Physical Exam: Physical Exam: Vitals signs as noted above General Appearance:Obese, no apparent distress Head: normocephalic, Atraumatic Eyes: normal inspection, EOMI Neck: supple, Trachea midline Respiratory/Chest: Normal breath sounds, CTA, No accessory muscle use Cardiovascular: S1, S2, No murmur Abdomen/GI:Soft, Non tender, Bowel sounds present Extremities/Musculoskeletal:normal inspection, Trace pedal edema Neurologic/Psych:AAOX3, grossly no focal neurological deficits Skin: normal color, warm Results & Data Results & Data ([facility]) Vital Signs (Past 12 Hours) Vital Signs Temp Pulse Pulse Resp BP Pulse Ox O2 Del Method 06/09/22 15:33 36.5 C 71 16 117/73 95 Room Air 06/09/22 11:11 36.5 C 68 18 135/74 98 Room Air 06/09/22 07:30 Room Air 06/09/22 07:30 82 06/09/22 07:42 36.6 C 16 114/65 93 Room Air 06/09/22 05:27 36.9 C 82 18 120/63 96 Room Air Laboratory Results Short CBC 06/09/22 Range/Units 06:04 WBC 8.81 (4.8-10.8) K/ul Hgb 10.6 L (12.0-16.0) g/dl Hct 31.2 L (34.1-44.9) % Plt Count 233 (130-400) K/uL BMP 06/08/22 06/08/22 15:27 21:42 Sodium 136 138 Potassium 3.6 3.4 L Chloride 108 H 109 H Carbon Dioxide 21 24 BUN 8 10 Creatinine 0.97 0.92 Glucose 256 H 119 H Calcium 7.5 L 7.9 L
[2022-06-09] MEDS: traZODone HCL 50 MG TAB PO SCH (21:21)
[2022-06-09] MEDS: ENOXAPARIN INJ 40 MG/0.4 ML SYR SQ SCH (21:21)
[2022-06-10] MEDS: LEVOTHYROXINE SODIUM 125 MCG TABLET PO SCH (06:14)
[2022-06-10 06:34] LABS: Basophils # (auto) 0.04 K/uL (0-0.2); Basophils % (auto) 0.6 %; Eosinophils # (auto) 0.22 K/uL (0-0.50); Eosinophils % (auto) 3.4 %; Hematocrit (blood only) 33.1 % (34.1-44.9); Hemoglobin 11.2 g/dl (12.0-16.0); Immature Granulocytes # (auto) 0.02 K/uL (0.00-0.02); Immature Granulocytes % (auto) 0.3 %; Lymphocytes # (auto) 2.89 K/uL (1.2-3.4); Lymphocytes % (auto) 45.2 %; Mean Corpuscular Hemoglobin 30.9 pg (25.0-34.0); Mean Corpuscular Hgb Conc 33.8 g/dL (32.0-36.0); Mean Corpuscular Volume 91.2 fL (80.0-100.0); Mean Platelet Volume 11.6 fL (9.4-12.3); Monocytes # (auto) 0.87 K/uL (0.24-0.82); Monocytes % (auto) 13.6 %; Neutrophils # (auto) 2.36 K/uL (1.4-6.5); Neutrophils % (auto) 36.9 %; Platelet Count 232 K/uL (130-400); RDW Coefficient of Variation 14.3 % (11.5-14.5); RDW Standard Deviation 48.2 fL (36.4-46.3); Red Blood Count 3.63 M/uL (3.93-5.22)
[2022-06-10 07:23] LABS: Calcium 8.2 mg/dl (8.5-10.1); Creatinine Clr Calc Pharmacy 119.9 ml/min; Est GFR (African American) 116.9 ml/min; Est GFR (Non-African American) 100.9 ml/min; Magnesium 1.9 mg/dl (1.7-2.4); Phosphorus 2.4 mg/dl (2.5-4.9); Potassium 3.4 mmol/L (3.5-5.1)
[2022-06-10] MEDS: ASPIRIN 81 MG ECTAB PO SCH (08:27)
[2022-06-10] MEDS: lisinopril 5 MG TAB PO SCH (08:27)
[2022-06-10] MEDS: INSULIN ASPART PER UNIT SC SCH (08:27)
[2022-06-10] MEDS: SIMVASTATIN 10 MG TAB PO SCH (08:27)
[2022-06-10] MEDS: FLUoxetine HCL 20 MG CAP PO SCH (08:27)
[2022-06-10] MEDS ORDERED: POTASSIUM CHLORIDE CRTAB 20 MEQ TABCR PO SCH (09:15)
[2022-06-10] MEDS ORDERED: CARBOHYDRATES FOR HYPOGLYCEMIA PO PRN (09:30)
[2022-06-10] MEDS ORDERED: GLUCOSE 10 TAB/TUBE PO PRN (09:30)
[2022-06-10] MEDS ORDERED: INSULIN ASPART 100 UNITS/ML VIAL SC PRN (09:30)
[2022-06-10] MEDS ORDERED: GLUCOSE 40% GEL 15 GM TUBE PO PRN (09:30)
[2022-06-10] MEDS ORDERED: GLUCAGON FOR INJ 1 MG VIAL SQ PRN (09:30)
[2022-06-10] MEDS ORDERED: DEXTROSE 50% 50 ML SYRINGE IV PRN (09:30)
[2022-06-10 11:31] VITALS: BP 142/90; PULSE 77; TEMP 97.9; O2SAT 96
[2022-06-10] MEDS: PANTOprazole 40 MG in SYRINGE 0 ML IV SCH (12:11)
[2022-06-10] MEDS: POT PHOSPHATE MONOBASIC W/ SOD TAB PO SCH ×2 (12:12→16:59)
[2022-06-10] MEDS: NovoLOG INSULIN PUMP SCH ×2 (12:37→16:59)
--- NOTE | 2022-06-10 13:35 | Hospitalist Progress Note ---
Date of Service June 10, 2022 Assessment & Plan (1) DKA (diabetic ketoacidosis): (2) High anion gap metabolic acidosis: Plan: Diabetic ketoacidosis High anion gap metabolic acidosis secondary to above ? Compliance HbA1C: 14.6 Presented with glucose 589, anion gap 28 and pH 7.05 And anion gap closed IV bicarbonate discontinued IV insulin>>>transitioned to SQ>>Insulin Pump Tolerates diet Received IV fluids Appreciate Research Project Manager help Appreciate Diabetic education Input Replace electrolytes as needed Multiple occlusions on daily basis noted on insulin pump review and also patient boluses infrequently for her meals. Patient was refilling the reservoirs and reusing instead of changing everything out likely causing occlusions. Explained the importance of using the pump appropriately Reconnected insulin pump today Plan to discharge home today Sinus pause Avoid AV toby blocking agents Monitor on telemetry Appreciate Cardiology Input No recurrence on secured entrance monitor Abnormal UA Asymptomatic Urine culture lactobacillus Hyponatremia Pseudohyponatremia from hyperglycemia. monitor Leukocytosis Possible related to stress induce due to the DKA Follow up Urine Culture COVID 19 Negative CXR showed no acute finding Blood Culture: Negative to date Afebrile Resolved Hypertensive urgency Likely situational BP on admission BP 217/125 Received IV labetalol BP Stable Continue Lisinopril Hyperlipidemia: Continue statin GERD Continue PPI Hypothyroidism Continue Levothyroxine DVT Px: Lovenox SQ Code status Full code Admission and Anticipated Discharge Date Admission Date: June 07, 2022 Subjective Patient is seen and examined at bedside States feeling well today Reports minimal itching on the right axilla Denies any chest pain, shortness of breath, dizziness, nausea, abdominal pain Review of Systems Review of Systems: All systems reviewed & are unremarkable except as noted in Subjective Physical Exam Physical Exam: Physical Exam: Vitals signs as noted above General Appearance:Obese, no apparent distress Head: normocephalic, Atraumatic Eyes: normal inspection, EOMI Neck: supple, Trachea midline Respiratory/Chest: Normal breath sounds, CTA, No accessory muscle use Cardiovascular: S1, S2, No murmur Abdomen/GI:Soft, Non tender, Bowel sounds present Extremities/Musculoskeletal:normal inspection, Trace pedal edema Neurologic/Psych:AAOX3, grossly no focal neurological deficits Skin: normal color, warm Results & Data Results & Data ([facility]) Vital Signs (Past 12 Hours) Vital Signs Temp Pulse Resp BP Pulse Ox O2 Del Method 06/10/22 11:30 36.6 C 77 18 142/90 H 96 Room Air 06/10/22 07:57 36.4 C L 67 18 142/73 H 94 Room Air 06/10/22 03:21 36.7 C 76 18 168/82 H 98 Room Air Laboratory Results Short CBC 06/10/22 Range/Units 06:11 WBC 6.40 (4.8-10.8) K/ul Hgb 11.2 L (12.0-16.0) g/dl Hct 33.1 L (34.1-44.9) % Plt Count 232 (130-400) K/uL BMP 06/10/22 06:11 Sodium 140 Potassium 3.4 L Chloride 108 H Carbon Dioxide 27 BUN 8 Creatinine 0.50 L D Glucose 135 H Calcium 8.2 L
--- NOTE | 2022-06-10 13:57 | Discharge Summary ---
Date of Service June 10, 2022 Admission HPI Per Admitting Provider 66-year-old female with past medical history significant for type 1 diabetes, on insulin pump for the last 15 years, hyperlipidemia, hypothyroidism, hypertension, obesity, GERD, dermatitis, presents to the ED with vomiting and elevated glucose. Pt had multiple admission for DKA in the past with most recent one about 1 month ago. History is difficult to obtain since pt is hyperventilate and speaking in segment. She said that last night she felt ok and her blood sugar was running ok in the last few days.. She said this morning she woke up with nausea and vomiting. She said that she vomited about 3 times this morning before coming to the ED. She said this morning she realized the battery from her insulin pump was . She said that she feels like she is running out of energy and her very thirsty now. She said that never felt like that before from her prior admission with DKA. She denies any chest pain, dysuria, no blurred visions, no earache, no runny nose, no sore throat, no cough, no fevers, no ch ills. Lab was done in the ED with glucose 612, anion gap 28, ABG with pH 7.05. She was hyperventilated with RR above 40 and BP 217/125 and HR in the 150. Admission Exam Per Admitting Provider Physical Exam Physical Exam: General- acute respiratory distress, speaking in segment Head- atraumatic Eyes- PERRL, EOMI, ENT- +dry mouth, thirsty Neck- supple, no JVD Lungs- clear to auscultation Heart- +tachycardia, no murmur Abdomen- normal bowel sounds, soft, nontender Extremities- no calf tenderness Neuro- alert, oriented x 3; PERRL, EOMI; no facial palsy; no dysarthria Skin- warm & dry Principal Diagnosis Diabetic ketoacidosis Hypertensive urgency Discharge Data Allergies Allergy/AdvReac Type Severity Reaction Status Date / Time dextromethorphan Allergy Severe Difficulty Verified 06/07/22 10:07 Breathing doxylamine Allergy Severe Difficulty Verified 06/07/22 10:07 Breathing pseudoephedrine Allergy Severe Difficulty Verified 06/07/22 10:07 Breathing glyburide Allergy Intermediate RASH Verified 06/07/22 10:07 tetanus toxoid, adsorbed Allergy Intermediate painful Verified 06/07/22 10:07 joints Ethanol Allergy Severe Difficulty Uncoded 06/07/22 10:07 Breathing Consultations 06/07/22 09:51 ED Decision to Admit Stat 06/07/22 13:24 Consult Lens Polisher Routine 06/08/22 07:12 Consult Cardiology Routine 06/08/22 19:26 Consult Cardiology Routine Procedures Performed Laboratory Results WBC 6.40 K/ul (4.8-10.8) 06/10/22 06:11 RBC 3.63 M/uL (3.93-5.22) L 06/10/22 06:11 Hgb 11.2 g/dl (12.0-16.0) L 06/10/22 06:11 POC Hgb 17.0 g/dl (12.0-16.0) H 06/07/22 09:21 Hct 33.1 % (34.1-44.9) L 06/10/22 06:11 POC Hct 50 % (37-47) H 06/07/22 09:21 MCV 91.2 fL (80.0-100.0) 06/10/22 06:11 MCH 30.9 pg (25.0-34.0) 06/10/22 06:11 MCHC 33.8 g/dL (32.0-36.0) 06/10/22 06:11 RDW Std Deviation 48.2 fL (36.4-46.3) H 06/10/22 06:11 RDW Coeff of Rossi 14.3 % (11.5-14.5) 06/10/22 06:11 Plt Count 232 K/uL (130-400) 06/10/22 06:11 MPV 11.6 fL (9.4-12.3) 06/10/22 06:11 Immature Gran % (Auto) 0.3 % 06/10/22 06:11 Neut % (Auto) 36.9 % 06/10/22 06:11 Lymph % (Auto) 45.2 % 06/10/22 06:11 [place] % (Auto) 13.6 % 06/10/22 06:11 Eos % (Auto) 3.4 % 06/10/22 06:11 Baso % (Auto) 0.6 % 06/10/22 06:11 Neut # (Auto) 2.36 K/uL (1.4-6.5) 06/10/22 06:11 Lymph # (Auto) 2.89 K/uL (1.2-3.4) 06/10/22 06:11 [place] # (Auto) 0.87 K/uL (0.24-0.82) H 06/10/22 06:11 Eos # (Auto) 0.22 K/uL (0-0.50) 06/10/22 06:11 Baso # (Auto) 0.04 K/uL (0-0.2) 06/10/22 06:11 Immature Gran # (Auto) 0.02 K/uL (0.00-0.02) 06/10/22 06:11 POC pH 7.05 (7.35-7.45) L* 06/07/22 09:21 POC pCO2 < 10 mmHg (35-46) L 06/07/22 09:21 POC pO2 123 mmHg (80-95) H 06/07/22 09:21 POC HCO3 3 kody/L (19-24) L 06/07/22 09:21 POC Total CO2 < 5 mmol/L (24-31) L* 06/07/22 09:21 POC Base Excess -28.0 kody/L (-9-1.8) L 06/07/22 09:21 ABG pH 7.24 (7.35-7.45) L 06/07/22 14:39 ABG pCO2 16 mmHg (35-46) L 06/07/22 14:39 ABG pO2 67 mmHg (80-95) L 06/07/22 14:39 ABG HCO3 7 mmol/L (19-24) L 06/07/22 14:39 POC ABG O2 Sat 97.0 % (90-95) H 06/07/22 09:21 ABG O2 Saturation 96.5 % (90-95) H 06/07/22 14:39 ABG Base Excess -18.0 mEq/L (-9-1.8) L 06/07/22 14:39 Saravanan Test Pos (Pos) 06/07/22 14:39 VBG pH 7.32 (7.36-7.41) L 06/07/22 19:33 VBG pCO2 22 mmHg (38-50) L 06/07/22 19:33 VBG pO2 60 mmHg 06/07/22 19:33 VBG HCO3 11 mmol/L 06/07/22 19:33 VBG O2 Saturation 91.3 % 06/07/22 19:33 VBG Base Excess -12.7 mEq/L 06/07/22 19:33 Oxygen Given ROOM AIR 06/07/22 14:39 POC Sodium 132 mmol/L (135-144) L 06/07/22 09:21 Sodium 140 mmol/L (136-145) 06/10/22 06:11 POC Potassium 4.1 mmol/L (3.3-5.0) 06/07/22 09:21 Potassium 3.4 mmol/L (3.5-5.1) L 06/10/22 06:11 POC Chloride 107 mmol/L (101-112) 06/07/22 09:12 Chloride 108 mmol/L (98-107) H 06/10/22 06:11 Carbon Dioxide 27 mmol/L (21-32) 06/10/22 06:11 POC Total CO2 7 mmol/L (24-31) L* 06/07/22 09:12 Anion Gap 5 (3-11) 06/10/22 06:11 POC Anion Gap 25.0 mmol/L (16-25) 06/07/22 09:12 POC BUN 14 mg/dl (7-18) 06/07/22 09:12 BUN 8 mg/dl (6-23) 06/10/22 06:11 Creatinine 0.50 mg/dl (0.6-1.2) L D 06/10/22 06:11 POC Creatinine 0.7 mg/dl (0.6-1.3) 06/07/22 09:12 Est Cr Clr Drug Dosing 119.9 ml/min 06/10/22 06:11 Est GFR ( Amer) 116.9 ml/min 06/10/22 06:11 Est GFR (Non-Af Amer) 100.9 ml/min 06/10/22 06:11 BUN/Creatinine Ratio 16.0 (10-20) 06/10/22 06:11 Glucose 135 mg/dl (70-99(Fasting)) H 06/10/22 06:11 POC Glucose 218 mg/dl (70-99) H 06/10/22 11:16 POC Glucose (other) 621 mg/dl (70-99) H* 06/07/22 09:12 Estimat Average Glucose 372 mg/dl 06/07/22 09:00 Hemoglobin A1c 14.6 % (4.5-5.6) H 06/07/22 09:00 Lactate 1.8 mmol/L (0.4-2.0) 06/07/22 09:00 Calcium 8.2 mg/dl (8.5-10.1) L 06/10/22 06:11 POC Ioniz Calcium [place] 1.25 mmol/l (1.12-1.32) 06/07/22 09:12 Phosphorus 2.4 mg/dl (2.5-4.9) L 06/10/22 06:11 Magnesium 1.9 mg/dl (1.7-2.4) 06/10/22 06:11 Total Bilirubin 0.4 mg/dl (0.2-1.0) 06/07/22 09:00 AST 8 U/L (13-39) L 06/07/22 09:00 ALT 7 U/L (7-52) 06/07/22 09:00 Alkaline Phosphatase 128 U/L (34-104) H 06/07/22 09:00 Troponin I High Sens 9.6 pg/ml (0-14) 06/07/22 19:33 Total Protein 7.7 gm/dl (6.0-8.3) 06/07/22 09:00 Albumin 4.5 gm/dl (3.4-5.0) 06/07/22 09:00 Globulin 3.2 gm/dl (2.5-4.0) 06/07/22 09:00 Albumin/Globulin Ratio 1.4 (0.9-2) 06/07/22 09:00 Procalcitonin < 0.05 ng/ml (0-0.5) 06/07/22 09:00 TSH 4.311 uIu/ml (0.300-4.500) 06/08/22 17:50 Urine Color Yellow 06/07/22 10:08 Urine Appearance Clear (Clear) 06/07/22 10:08 Urine pH 5.0 (4.5-7.5) 06/07/22 10:08 Ur Specific [place] 1.029 (1.000-1.030) 06/07/22 10:08 Urine Protein 1+ (Negative) H 06/07/22 10:08 Urine Glucose (UA) 3+ (Negative) H 06/07/22 10:08 Urine Ketones 4+ (Negative) H 06/07/22 10:08 Urine Blood Trace (Negative) H 06/07/22 10:08 Urine Nitrite Negative (Negative) 06/07/22 10:08 Urine Bilirubin Negative (Negative) 06/07/22 10:08 Urine Urobilinogen Negative (Negative) 06/07/22 10:08 Ur Leukocyte Esterase Negative (Negative) 06/07/22 10:08 Urine WBC (Auto) 1-5 /hpf (0-5) 06/07/22 10:08 Urine RBC (Auto) 0-4 /hpf (0-4) 06/07/22 10:08 U Hyaline Cast (Auto) 1-5 /lpf (0-5) 06/07/22 10:08 U Epithel Cells (Auto) >30 /lpf (0-5) H 06/07/22 10:08 Urine Bacteria (Auto) 1+ (Negative) H 06/07/22 10:08 Nasal Screen MRSA (PCR) Negative (Negative) 06/07/22 13:30 Lyme Disease IgG Ab Negative (Negative) 06/08/22 17:50 Lyme Disease IgM Ab Negative (Negative) 06/08/22 17:50 SARS-CoV-2, RNA, NAAT NEGATIVE (NEGATIVE) 06/07/22 10:58 Impressions Chest X-Ray 06/07/22 08:59 XR chest 1V portable HISTORY: 66 years-old Female weakness acute weakness COMPARISON: Chest radiograph 05/06/2022, CTA chest 01/22/2022. TECHNIQUE: Portable AP view of the chest FINDINGS: Cardiac silhouette is upper limits of normal in size. Bilateral hilar prominence is similar to prior, likely secondary to normal pulmonary vasculature. No pneumothorax, pleural effusion, airspace consolidation or overt pulmonary edema. Degenerative changes of the shoulders and spine. IMPRESSION: No acute process. ACT 112: Negative or not required by law. The above report was generated using voice recognition software. It may contain grammatical, syntax or spelling errors. Electronically signed by: Joaquin Arthur M.D. 06/07/2022 9:27 AM Hospital Course (1) DKA (diabetic ketoacidosis): (2) High anion gap metabolic acidosis: Diabetic ketoacidosis High anion gap metabolic acidosis secondary to above ? Compliance HbA1C: 14.6 Presented with glucose 589, anion gap 28 and pH 7.05 And anion gap closed IV bicarbonate discontinued IV insulin>>>transitioned to SQ>>Insulin Pump Tolerates diet Received IV fluids Appreciate Lens Polisher help Appreciate Diabetic education Input Replace electrolytes as needed Multiple occlusions on daily basis noted on insulin pump review and also patient boluses infrequently for her meals. Patient was refilling the reservoirs and reusing instead of changing everything out likely causing occlusions. Explained the importance of using the pump appropriately Reconnected insulin pump today Plan to discharge home today Sinus pause Avoid AV toby blocking agents Monitor on telemetry Appreciate Cardiology Input No recurrence on director of regulatory affairs Abnormal UA Asymptomatic Urine culture lactobacillus Hyponatremia Pseudohyponatremia from hyperglycemia. monitor Leukocytosis Possible related to stress induce due to the DKA Follow up Urine Culture COVID 19 Negative CXR showed no acute finding Blood Culture: Negative to date Afebrile Resolved Hypertensive urgency Likely situational BP on admission BP 217/125 Received IV labetalol BP Stable Continue Lisinopril Hyperlipidemia: Continue statin GERD Continue PPI Hypothyroidism Continue Levothyroxine DVT Px: Lovenox SQ Code status Full code Total Time Total Time Spent Total Time Spent (In Minutes): 48 minutes Discharge Plan Discharge Items Patient Disposition: Home - Self-Care Reason For Visit: dka Discharge Diagnosis: Diabetic ketoacidosis Hypertensive urgency Activity: Per Instructions section Exercise/Sports: Gradually increase as tolerated Non-emergency contact: Primary Care Provider Call non-emergency contact if: you have any medication questions, your symptoms worsen, your pain is concerning for you and you have a fever Follow-up/Referrals: Oswaldo Saxena MD [Primary Care Provider] - (Date & Time 06/16/2022 9:00 AM Provider Oswaldo Saxena MD Department [facility] ) Diet: Carb Consistent or DM2 Addtl Attending Provider Instructions: Follow-up with your primary care physician on 06/16/2022 9:00 AM --- Your final blood cultures are pending at the time of discharge. Follow-up with your physician for results. --- Use insulin pump regularly and monitor your blood glucose levels regularly as advised. --- Your final blood cultures are pending at the time of discharge. Follow-up with your physician for results. --- Your lisinopril dose is increased to 10 mg daily for better control of her blood pressure. Seek immediate medical attention if your symptoms reoccur or worsen Please take all medications as instructed on discharge list below. Please call if you have any questions or problems. You can reach a [facility] hospitalist on duty at [facility] 24 hours a day by calling [phone] Pending Studies at Discharge: Yes Studies:: Final blood culture results. Stand-Alone Forms: [facility], Smoking Cessation Medications and DC Order Prescriptions: New potassium chloride 20 mEq Tablet,Er Particles/Crystals 20 meq PO DAILY Qty: 4 0RF Phospha 250 Neutral 250 mg Tablet 1 tab PO QID Qty: 16 0RF Continued (DME) Dexcom G6 Crimping Machine Operator For Metal Misc See Rx Instructions .ROUTE .MEDSUPPLY Qty: 9 4RF Rx Instructions: Use with Settle g6 system E10.65 (DME) DexProformative G6 Transmitter Device See Rx Instructions .ROUTE .MEDSUPPLY Qty: 1 3RF Rx Instructions: Change every 90 days E10.65 (DME) OneTouch Ultra Test Strip See Rx Instructions .Route Qty: 400 3RF Rx Instructions: Test four times daily (DME) blood-glucose meter [OneTouch Ultra2 Meter] Kit See Rx Instructions .Route Qty: 1 0RF Rx Instructions: Test blood sugars 4 times a day insulin aspart U-100 [Novolog U-100 Insulin aspart] 100 unit/mL solution See Rx Instructions continuous subcutaneous infusion DAILY Qty: 90 0RF Rx Instructions: via continuous subcutaneous infusion daily; TDD 100 units aspirin [Adult Low Dose Aspirin] 81 mg tablet,delayed release (DR/EC) 81 mg PO DAILY diphenhydramine HCl 25 mg capsule 25 mg PO HS PRN (Reason: Sleep) Rx Instructions: 25 mg PO at bedtime PRN; fluocinonide 0.05 % solution 1 applic topical DAILY fluoxetine 40 mg capsule 40 mg PO DAILY levothyroxine 125 mcg tablet 125 mcg PO DAILY lansoprazole 30 mg capsule,delayed release(DR/EC) 30 mg PO DAILYBB zolpidem 10 mg tablet 10 mg PO HS PRN (Reason: Sleep) trazodone 50 mg tablet 50 mg PO HS simvastatin 10 mg tablet 10 mg PO DAILY Changed lisinopril 5 mg tablet 10 mg PO DAILY Qty: 60 0RF Discharge Orders: Discharge Order (Routine); Ordered 06/10/22 Ordered By: Roman Bhakta Admission Data Admit Date/Time: 06/07/22 10:34 Attending Provider: Roman Bhakta Admit Provider: Latoya Bill Primary Care Provider: Oswaldo Saxena Other Providers: Latoya Bill ; Jarret Contreras ; Fidel Khan
--- NOTE | 2022-06-10 14:43 | Pharmacy Report ---
Pharmacy Glycemic Short Note 2 - Date of Service June 10, 2022 - Glycemic Short BSG Results (Last 24 hours): 06/09/22 06/09/22 06/10/22 16:06 20:12 06:11 Glucose 135 H POC Glucose 122 H 147 H 06/10/22 06/10/22 07:35 11:16 Glucose POC Glucose 146 H 218 H OUTPATIENT ANTIDIABETIC REGIMEN: * Novolog via Tandem T-slim insulin pump * Basal: 2.5 units x 24 hours * Bolus: ICR 3, CF 10, Target 110 mg/dL * HbA1c = 14.6% (06/07/22) ASSESSMENT: 06/10: * Patient received total 91 units of insulin yesterday: 40 units basal and 51 units bolus. * BSGs yesterday were [phone] mg/dl. Fasting BSG today was 135 mg/dl. * Patient's grandson brought in her insulin pump supplies this morning. GENEVA Cotter was present at bedside and pump was turned on at 9:45 AM today. * Basal insulin was discontinued and she received only 20 units of Novolog with breakfast this AM before her pump was started. * Cyndee said that since patient received 20 units of Lantus last night, pump programmed for patient to get 50% of basal rate until 21:00 tonight then resume home basal rate. * Basal and bolus novolog orders are discontinued since patient is back on her insulin pump. 06/09/22: * Patient admitted 06/07/22 with DKA. Pharmacy was consulted that day to assist with inpatient glycemic management. Patient is type 1 diabetic on insulin pump at home. Multiple admissions (almost monthly) for DKA since January 2022. Was just here with DKA at end of April. Problem was detected with insulin pump at that time and patient was to receive new pump from personal computer network engineer. This bout of DKA resulted from battery dying on insulin pump. Also noted that HbA1c has worsening since end of April (13.5--14.6). * Started on insulin drip 06/07/22. BSGs trended down quickly and drip was shut off around noon on 06/08/22 following the administration of 50 units of Lantus. * Fasting BSG was 84 mg/dL this AM. Will reduced basal insulin by 20% today and divide it BID. No changes to Novolog for now but will monitor BSGs closely today. * Spoke with patient today while CDE Cyndee Buck was present. Unlikely that grandson can bring in pump supplies so will continue with basal bolus. PLAN FOR INPATIENT GLYCEMIC CONTROL: * Resumed patient's own insulin pump with help from CDE today. Basal rate to run at 50% of home basal rate until 2100 tonight then resume usual rate.
== END 2022-06-10 19:07 | disposition home or self-care (01) | DRG 638 ==
LOC: ED 08:19 → SUATTDRO 10:34 → 1E 10:34 → 2S 06-08 17:11
DX: E03.9 Hypothyroidism, unspecified; F32.A Depression, unspecified; Z68.36 Body mass index [BMI] 36.0-36.9, adult; E78.2 Mixed hyperlipidemia; G47.33 Obstructive sleep apnea (adult) (pediatric); F41.9 Anxiety disorder, unspecified; N17.9 Acute kidney failure, unspecified; Z79.890 Hormone replacement therapy; K21.9 Gastro-esophageal reflux disease without esophagitis; E10.10 Type 1 diabetes mellitus with ketoacidosis without coma; D72.829 Elevated white blood cell count, unspecified; Z20.822 Contact with and (suspected) exposure to COVID-19; I16.0 Hypertensive urgency; Z83.3 Family history of diabetes mellitus; I10 Essential (primary) hypertension; E86.0 Dehydration; Z88.7 Allergy status to serum and vaccine; E87.6 Hypokalemia; Z82.49 Family history of ischemic heart disease and other diseases of the circulatory system; E66.9 Obesity, unspecified; I45.5 Other specified heart block; Z88.8 Allergy status to other drugs, medicaments and biological substances; E83.39 Other disorders of phosphorus metabolism; R82.71 Bacteriuria; Z79.82 Long term (current) use of aspirin; Z91.128 Patient's intentional underdosing of medication regimen for other reason; Z79.899 Other long term (current) drug therapy; R00.0 Tachycardia, unspecified; Z96.41 Presence of insulin pump (external) (internal)

== ENCOUNTER 2022-07-18 15:43 | Inpatient (IN) ==
[2022-07-18] MEDS ORDERED: CEFEPIME 2,000 MG/20 ML VIAL IV STA (15:55)
[2022-07-18] MEDS ORDERED: ONDANSETRON INJ 2 MG/ML 2 ML VIAL IV STA (15:55)
[2022-07-18] MEDS ORDERED: SODIUM CHLORIDE 0.9% 1000ML 2,000 ML IV ONE (15:55)
[2022-07-18] MEDS ORDERED: SODIUM BICARBONATE 8.4% INJ 50 MEQ/50 ML VIAL IV STA (16:01)
[2022-07-18] MEDS ORDERED: GLUCOSE 10 TAB/TUBE PO PRN (16:03)
[2022-07-18] MEDS ORDERED: STAT INSULIN DRIP STA (16:03)
[2022-07-18] MEDS ORDERED: CARBOHYDRATES FOR HYPOGLYCEMIA PO PRN (16:03)
[2022-07-18] MEDS ORDERED: DEXTROSE 50% 50 ML SYRINGE IV PRN (16:03)
[2022-07-18] MEDS ORDERED: DKA GOAL RANGE 150-250 mg/dl ONE (16:03)
[2022-07-18] MEDS ORDERED: GLUCOSE 40% GEL 15 GM TUBE PO PRN (16:03)
[2022-07-18] MEDS ORDERED: GLUCAGON FOR INJ 1 MG VIAL SQ PRN (16:03)
[2022-07-18 16:10] LABS: iSTAT Blood Urea Nitrogen 39 mg/dl (7-18); iSTAT Carbon Dioxide 6 mmol/L (24-31); iSTAT Chloride 102 mmol/L (101-112); iSTAT Creatinine 1.6 mg/dl (0.6-1.3); iSTAT Glucose > 700 mg/dl (70-99); iSTAT Hematocrit 56 % (37-47); iSTAT Potassium 7.4 mmol/L (3.3-5.0); iSTAT Sodium 125 mmol/L (135-144)
[2022-07-18] MEDS ORDERED: NovoLIN-R BOLUS FROM BAG IV STA (16:13)
--- NOTE | 2022-07-18 16:15 | Emergency Department Note ---
Impression & Plan Altered mental status, DKA (diabetic ketoacidosis), Acute hyperkalemia, Acidosis, Leukocytosis, Tachypnea ED Provider Note NAME: KENZIE BAUM AGE: 67 SEX: F : 1955 ARRIVES VIA: Ambulance INFORMANT: [nursing, ems] ED PROVIDER(S): [Ollie Metz MD] CHIEF COMPLAINT: Illness HISTORY OF PRESENT ILLNESS: The patient is a 67-year-old female who was brought by EMS. She was found unresponsive by family this afternoon. She was last seen many hours ago in the [facility]. The patient apparently had vomited. She was confused and not acting herself. She was breathing rapidly. She was brought for evaluation. Glucose was noted to be over 600 by EMS. The patient can give me no history. She moans when I attempt to interact with her. She is breathing quite fast and deep. She appears dehydrated clinically. Given the circumstances, no further history obtainable. REVIEW OF SYSTEMS: Unobtainable given her mental state. PMHx/PSHx: See Below SOCIAL HISTORY: See Below. PHYSICAL EXAM: GENERAL: Patient is in significant distress HEENT: No acute trauma, normocephalic atraumatic, mucous membranes very dry, no nasal congestion, no scleral icterus. NECK: No stridor, no adenopathy, no meningismus, trachea is midline. LUNGS: Clear to auscultation bilaterally, no wheeze, no rhonchi, breath sounds equal. The patient is breathing quickly and very deeply. HEART: Tachycardic, no murmurs, regular rhythm. ABDOMEN: Soft, nontender, no peritonitis. EXTREMITIES: No cyanosis or edema, full range of motion of all the joints without pain or difficulty, no signs for acute trauma. NEUROLOGIC: Moans when I attempt to interact. She has moved all extremities. SKIN: Her extremities and abdomen appear mottled. DIFFERENTIAL DIAGNOSIS: Sepsis, UTI, pneumonia, DKA, metabolic abnormality, electrolyte abnormalities, cardiac sources, cellulitis, bacteremia, intracerebral event, toxicologic etiology, neurologic event, as well as other pathologies. EMERGENCY DEPARTMENT COURSE/PROCEDURES: ECG: Indication was possible sepsis. The ECG shows a sinus tachycardia with a rate of 131. No PVCs. There is poor R wave progression. No ST elevation. There is a poor baseline. QTC is 525. Continuous Cardiac Monitoring: An order was placed for continuous cardiac monitoring. The monitor shows a rate of 126 with sinus tachycardia. Critical Care Note: I have personally spent 64 minutes of critical care time in the direct management of this patient. This includes bedside care, interpretation of diagnostic studies, and testing, discussion with consultants, patient, and family members, and other required patient management activities. This 64 minutes is in excess of all separately billable procedures. MEDICAL DECISION MAKING: There is a significant leukocytosis at 32,000, this would be consistent with infection and the stress of the current situation. The patient's hemoglobin is high at 19, likely from dehydration. Platelet count elevated at 461. No coagulopathy. ABG shows a marked acidosis with a pH less than 7. PCO2 was 8, bicarb was 2. Sodium was low at 125. The patient's potassium was high at over 7. Glucose was elevated at over 700. Lactic acid level was elevated consistent with her presentation. Ionized calcium was low. No concerning liver enzyme elevation. Procalcitonin level was not elevated. The patient appeared to be in a euthyroid state. ECG showed a sinus tachycardia, no obvious ischemia. Cardiac enzyme testing x1 was not consistent with acute cardiac injury. Chest x-ray did not show pneumonia or CHF. Brain CT showed no acute bleed or mass- effect. Abdominal and pelvis CT did not show any acute surgical process. On exam, the patient was quite tachypneic. She was confused and very somnolent/stuporous. There was mottling of her skin. I was called emergently to see the patient. She was aggressively managed. She received a total of 3.5 L of IV saline. She was given 100 mEq of sodium bicarbonate IV . She was given 2000 mg of calcium gluconate IV. She received IV Zofran for nausea. She was placed on an insulin drip. She was given IV cefepime as empiric antibiotic coverage. 3 IVs were established. The patient presents altered, tachypneic, dehydrated. She is in DKA. Her potassium was critically high. Despite all her findings, she was maintaining her airway. She was allowed to continue to try and compensate for her acidosis with the tachypnea. I did speak with the ICU, Dr. Stahl. He excepted the patient to his floor. I spoke with case management. I did speak with the on-call hospitalist. Past Med/Surg History Medical History DKA (diabetic ketoacidosis) GERD (gastroesophageal reflux disease) HTN (hypertension) Hypothyroidism Mixed hyperlipidemia Presence of insulin pump Uncontrolled type 1 diabetes mellitus with hyperglycemia Surgical History History of cholecystectomy 1986 History of hysterectomy Non cancerous fibroid removal of 6 lbs History of shoulder surgery History of tonsillectomy Family History Grandmother (Maternal) Diabetes Mother Hypertension Heart disease Grandmother (Paternal) Diabetes Social History Smoking Status: Never smoker Second Hand Exposure: No; Hx Alcohol Use: No Hx Substance Use: No Preferred Language: Croatian Communication Ability: Impaired Communication Ability Comment: unable this time [employer] Required: No Beliefs That Will Affect Care: None marital status: Unknown Current Living Situation: Family Current Living Situation Comment: Grandson Feels Safe at Home: Yes Assistive Devices: None Assistive Devices Comment: per last admission informtion Allergies Allergies Allergy/AdvReac Type Severity Reaction Status Date / Time dextromethorphan Allergy Severe Difficulty Verified 06/07/22 10:07 Breathing doxylamine Allergy Severe Difficulty Verified 06/07/22 10:07 Breathing pseudoephedrine Allergy Severe Difficulty Verified 06/07/22 10:07 Breathing glyburide Allergy Intermediate RASH Verified 06/07/22 10:07 tetanus toxoid, adsorbed Allergy Intermediate painful Verified 06/07/22 10:07 joints Ethanol Allergy Severe Difficulty Uncoded 06/07/22 10:07 Breathing Home Meds Home Medications Medication Instructions Recorded Confirmed aspirin 81 mg tablet,delayed 81 mg PO DAILY 01/29/21 07/18/22 release (Adult Low Dose Aspirin) diphenhydramine HCl 25 mg capsule 25 mg PO HS PRN Sleep 01/29/21 07/18/22 fluocinonide 0.05 % topical 1 applic topical DAILY 01/29/21 07/18/22 solution fluoxetine 40 mg capsule 40 mg PO DAILY 01/29/21 07/18/22 levothyroxine 125 mcg tablet 125 mcg PO DAILY 01/29/21 07/18/22 lansoprazole 30 mg capsule,delayed 30 mg PO DAILYBB 06/03/21 07/18/22 release zolpidem 10 mg tablet 10 mg PO HS PRN Sleep 06/03/21 07/18/22 simvastatin 10 mg tablet 10 mg PO DAILY 05/06/22 07/18/22 trazodone 50 mg tablet 50 mg PO HS 05/06/22 07/18/22 lisinopril 5 mg tablet 5 mg PO DAILY 07/18/22 07/18/22 Previous Rx's Medication Instructions Recorded Dexcom G6 Rn Digestive (blood-glucose #9 ea 03/27/21 meter,continuous) Dexcom G6 Transmitter #1 ea 03/27/21 (blood-glucose transmitter) OneTouch Ultra Test (blood sugar #400 ea 07/10/21 diagnostic) blood-glucose meter (OneTouch #1 ea 03/20/22 Ultra2 Meter kit) insulin aspart U-100 100 unit/mL See Rx Instructions continuous 04/24/22 subcutaneous solution (Novolog subcutaneous infusion DAILY #90 mL U-100 Insulin aspart) sodium di- and 1 tab PO QID #16 tabs 06/10/22 monophosphate-potassium phos monobasic 250 mg tablet (Phospha 250 Neutral) Results & Data (ED) Vital Signs Vital Signs - 24 hr 07/18/22 15:21 07/18/22 15:57 07/18/22 16:31 Temperature 35 C L Temperature Source Axillary Pulse Rate 126 H 120 H Pulse Rate from SpO2 Sensor Pulse Rhythm Regular Regular Pulse Strength Normal Respiratory Rate 40 H 20 Respiratory Effort / Characteristics Labored Nasal Flaring Short of Breath Spontaneous Nasal Flaring Short of Breath Respiratory Depth Normal Deep Respiratory Pattern Rapid/Deep Tachypnea Rapid/Deep Blood Pressure 119/62 Blood Pressure Mean 81 Pulse Oximetry 99 100 Oxygen Delivery Method Room Air Room Air Sepsis Recent Fever Within 48 Hours No Sepsis New/Unexplained Change in Mental Status Yes Sepsis Action Taken by Nursing Physician Notified End-Tidal CO2 5 07/18/22 16:05 07/18/22 16:10 07/18/22 16:10 Temperature Temperature Source Pulse Rate 127 H 124 H Pulse Rate from SpO2 Sensor 126 H 125 H Pulse Rhythm Pulse Strength Respiratory Rate 40 H 40 H Respiratory Effort / Characteristics Respiratory Depth Respiratory Pattern Blood Pressure 141/83 H Blood Pressure Mean 102 Pulse Oximetry 100 100 Oxygen Delivery Method Sepsis Recent Fever Within 48 Hours Sepsis New/Unexplained Change in Mental Status Sepsis Action Taken by Nursing End-Tidal CO2 5 07/18/22 16:20 07/18/22 16:29 07/18/22 16:29 Temperature Temperature Source Pulse Rate 121 H 122 H Pulse Rate from SpO2 Sensor 121 H 111 H Pulse Rhythm Pulse Strength Respiratory Rate 40 H 36 H Respiratory Effort / Characteristics Respiratory Depth Respiratory Pattern Blood Pressure 79/67 L Blood Pressure Mean 71 Pulse Oximetry 100 83 L Oxygen Delivery Method Sepsis Recent Fever Within 48 Hours Sepsis New/Unexplained Change in Mental Status Sepsis Action Taken by Nursing End-Tidal CO2 7 07/18/22 16:30 07/18/22 16:31 07/18/22 16:31 Temperature Temperature Source Pulse Rate 121 H 120 H Pulse Rate from SpO2 Sensor 126 H 120 H Pulse Rhythm Pulse Strength Respiratory Rate 38 H 34 H Respiratory Effort / Characteristics Respiratory Depth Respiratory Pattern Blood Pressure 116/65 Blood Pressure Mean 82 Pulse Oximetry 98 100 Oxygen Delivery Method Sepsis Recent Fever Within 48 Hours Sepsis New/Unexplained Change in Mental Status Sepsis Action Taken by Nursing End-Tidal CO2 7 7 07/18/22 16:40 07/18/22 16:50 07/18/22 17:00 Temperature Temperature Source Pulse Rate 120 H 117 H Pulse Rate from SpO2 Sensor 120 H 118 H Pulse Rhythm Pulse Strength Respiratory Rate 33 H 31 H 38 H Respiratory Effort / Characteristics Respiratory Depth Respiratory Pattern Blood Pressure Blood Pressure Mean Pulse Oximetry 100 100 Oxygen Delivery Method Sepsis Recent Fever Within 48 Hours Sepsis New/Unexplained Change in Mental Status Sepsis Action Taken by Nursing End-Tidal CO2 7 6 07/18/22 17:10 07/18/22 17:13 07/18/22 17:13 Temperature Temperature Source Pulse Rate Pulse Rate from SpO2 Sensor 116 H Pulse Rhythm Pulse Strength Respiratory Rate 36 H 40 H Respiratory Effort / Characteristics Respiratory Depth Respiratory Pattern Blood Pressure 126/69 Blood Pressure Mean 88 Pulse Oximetry 99 100 Oxygen Delivery Method Sepsis Recent Fever Within 48 Hours Sepsis New/Unexplained Change in Mental Status Sepsis Action Taken by Nursing End-Tidal CO2 07/18/22 17:20 07/18/22 17:30 07/18/22 17:40 Temperature Temperature Source Pulse Rate 119 H 117 H 118 H Pulse Rate from SpO2 Sensor 119 H 116 H 118 H Pulse Rhythm Pulse Strength Respiratory Rate 36 H 36 H Respiratory Effort / Characteristics Respiratory Depth Respiratory Pattern Blood Pressure Blood Pressure Mean Pulse Oximetry 100 100 100 Oxygen Delivery Method Sepsis Recent Fever Within 48 Hours Sepsis New/Unexplained Change in Mental Status Sepsis Action Taken by Nursing End-Tidal CO2 Home Medications Current Medication List: was personally reviewed by me Laboratory Data Attestation: I reviewed the patient's lab results. Result diagrams: 07/18/22 19:45 07/18/22 19:44 Lab Results 07/18/22 07/18/22 07/18/22 Range/Units 15:54 15:56 16:07 WBC RBC Hgb POC Hgb 19.0 H (12.0-16.0) g/dl Hct POC Hct 56 H (37-47) % MCV MCH MCHC RDW Std Deviation RDW Coeff of Rossi Plt Count MPV Immature Gran % (Auto) Neut % (Auto) Lymph % (Auto) [place] % (Auto) Eos % (Auto) Baso % (Auto) Neut # (Auto) Lymph # (Auto) [place] # (Auto) Eos # (Auto) Baso # (Auto) Immature Gran # (Auto) Absolute Nucleated RBC Nucleated RBC % (auto) Neutrophils % (Manual) Band Neutrophils % Lymphocytes % (Manual) Prolymphocyte % Reactive Lymphs % (Man) Monocytes % (Manual) Eosinophils % (Manual) Basophils % (Manual) Metamyelocytes % (Man) Myelocytes % (Man) Promyelocytes % (Man) Blast Cells % (Manual) Plasma Cell % (Manual) Other Cells % Nucleated RBC % Neutrophils # (Manual) Band Neutrophils # Total Absolute Neuts Lymphocytes # (Manual) Prolymphocyte # Reactive Lymphs # Total Abs Lymphocytes Monocytes # (Manual) Eosinophils # (Manual) Basophils # (Manual) Metamyelocytes # (Man) Myelocytes # (Manual) Promyelocytes # (Man) Blast Cells # (Man) Plasma Cell # (Manual) Other Cells # Nucleated RBCs # (Man) Hypersegmented Neuts Hyposegmented Neuts Hypogranular Neuts Large Granular Lymphs # Lrg Granular Lymphs Hairy Cells Smudge Cells Toxic Granulation Toxic Vacuolation Dohle Bodies Mark Rods Platelet Estimate Hypogranular Platelets Clumped Platelets Giant Platelets Platelet Satelliting RBC Morphology Polychromasia Hypochromasia Poikilocytosis Basophilic Stippling Anisocytosis Microcytosis Macrocytosis Spherocytes Pappenheimer Bodies Sickle Cells Target Cells Tear Drop Cells Ovalocytes Stomatocytes Bautista-Scarsdale Bodies Echinocytes Acanthocytes (Spur) Rouleaux RBC Agglutinates Schistocytes Sezary Cell PT INR APTT PTT Ratio ABG pH (7.35-7.45) ABG pCO2 (35-46) mmHg ABG pO2 (80-95) mmHg ABG HCO3 (19-24) mmol/L ABG O2 Saturation (90-95) % ABG Base Excess (-9-1.8) mEq/L [place] Test (Pos) Oxygen Given POC Sodium 125 L (135-144) mmol/L Sodium (136-145) mmol/L POC Potassium 7.4 H* (3.3-5.0) mmol/L Potassium (3.5-5.1) mmol/L POC Chloride 102 (101-112) mmol/L Chloride (98-107) mmol/L Carbon Dioxide (21-32) mmol/L POC Total CO2 6 L* (24-31) mmol/L Anion Gap POC Anion Gap 26.0 H (16-25) mmol/L POC BUN 39 H (7-18) mg/dl BUN (6-23) mg/dl Creatinine (0.6-1.2) mg/dl POC Creatinine 1.6 H (0.6-1.3) mg/dl Est Cr Clr Drug Dosing ml/min Est GFR ( Amer) ml/min Est GFR (Non-Af Amer) ml/min BUN/Creatinine Ratio (10-20) Glucose (70-99(Fasting)) mg/dl POC Glucose > 600 H* (70-99) mg/dl POC Glucose (other) > 700 H* (70-99) mg/dl Estimat Average Glucose mg/dl Hemoglobin A1c (4.5-5.6) % Lactate Calcium (8.5-10.1) mg/dl POC Ioniz Calcium Franc[place]sca 1.10 L (1.12-1.32) mmol/l Magnesium (1.7-2.4) mg/dl Total Bilirubin (0.2-1.0) mg/dl Direct Bilirubin (0-0.2) mg/dl AST (13-39) U/L ALT (7-52) U/L Alkaline Phosphatase (34-104) U/L Troponin I High Sens (0-14) pg/ml Total Protein (6.0-8.3) gm/dl Albumin (3.4-5.0) gm/dl Procalcitonin TSH Cancelled Urine Color Urine Appearance (Clear) Urine pH (4.5-7.5) Ur Specific [place] (1.000-1.030) Urine Protein (Negative) Urine Glucose (UA) (Negative) Urine Ketones (Negative) Urine Blood (Negative) Urine Nitrite (Negative) Urine Bilirubin (Negative) Urine Urobilinogen (Negative) Ur Leukocyte Esterase (Negative) Urine WBC (Auto) (0-5) /hpf Urine RBC (Auto) (0-4) /hpf U Hyaline Cast (Auto) (0-5) /lpf U Epithel Cells (Auto) (0-5) /lpf Urine Bacteria (Auto) (Negative) Blood Parasites ID 07/18/22 07/18/22 07/18/22 Range/Units 16:07 16:07 16:07 WBC Cancelled RBC Cancelled Hgb Cancelled POC Hgb (12.0-16.0) g/dl Hct Cancelled POC Hct (37-47) % MCV Cancelled MCH Cancelled MCHC Cancelled RDW Std Deviation Cancelled RDW Coeff of Rossi Cancelled Plt Count Cancelled MPV Cancelled Immature Gran % (Auto) Cancelled Neut % (Auto) Cancelled Lymph % (Auto) Cancelled [place] % (Auto) Cancelled Eos % (Auto) Cancelled Baso % (Auto) Cancelled Neut # (Auto) Cancelled Lymph # (Auto) Cancelled [place] # (Auto) Cancelled Eos # (Auto) Cancelled Baso # (Auto) Cancelled Immature Gran # (Auto) Cancelled Absolute Nucleated RBC Cancelled Nucleated RBC % (auto) Cancelled Neutrophils % (Manual) Cancelled Band Neutrophils % Cancelled Lymphocytes % (Manual) Cancelled Prolymphocyte % Cancelled Reactive Lymphs % (Man) Cancelled Monocytes % (Manual) Cancelled Eosinophils % (Manual) Cancelled Basophils % (Manual) Cancelled Metamyelocytes % (Man) Cancelled Myelocytes % (Man) Cancelled Promyelocytes % (Man) Cancelled Blast Cells % (Manual) Cancelled Plasma Cell % (Manual) Cancelled Other Cells % Cancelled Nucleated RBC % Cancelled Neutrophils # (Manual) Cancelled Band Neutrophils # Cancelled Total Absolute Neuts Cancelled Lymphocytes # (Manual) Cancelled Prolymphocyte # Cancelled Reactive Lymphs # Cancelled Total Abs Lymphocytes Cancelled Monocytes # (Manual) Cancelled Eosinophils # (Manual) Cancelled Basophils # (Manual) Cancelled Metamyelocytes # (Man) Cancelled Myelocytes # (Manual) Cancelled Promyelocytes # (Man) Cancelled Blast Cells # (Man) Cancelled Plasma Cell # (Manual) Cancelled Other Cells # Cancelled Nucleated RBCs # (Man) Cancelled Hypersegmented Neuts Cancelled Hyposegmented Neuts Cancelled Hypogranular Neuts Cancelled Large Granular Lymphs Cancelled # Lrg Granular Lymphs Cancelled Hairy Cells Cancelled Smudge Cells Cancelled Toxic Granulation Cancelled Toxic Vacuolation Cancelled Dohle Bodies Cancelled Mark Rods Cancelled Platelet Estimate Cancelled Hypogranular Platelets Cancelled Clumped Platelets Cancelled Giant Platelets Cancelled Platelet Satelliting Cancelled RBC Morphology Cancelled Polychromasia Cancelled Hypochromasia Cancelled Poikilocytosis Cancelled Basophilic Stippling Cancelled Anisocytosis Cancelled Microcytosis Cancelled Macrocytosis Cancelled Spherocytes Cancelled Pappenheimer Bodies Cancelled Sickle Cells Cancelled Target Cells Cancelled Tear Drop Cells Cancelled Ovalocytes Cancelled Stomatocytes Cancelled Bautista-Scarsdale Bodies Cancelled Echinocytes Cancelled Acanthocytes (Spur) Cancelled Rouleaux Cancelled RBC Agglutinates Cancelled Schistocytes Cancelled Sezary Cell Cancelled PT INR APTT PTT Ratio ABG pH (7.35-7.45) ABG pCO2 (35-46) mmHg ABG pO2 (80-95) mmHg ABG HCO3 (19-24) mmol/L ABG O2 Saturation (90-95) % ABG Base Excess (-9-1.8) mEq/L [place] Test (Pos) Oxygen Given POC Sodium (135-144) mmol/L Sodium 130 L (136-145) mmol/L POC Potassium (3.3-5.0) mmol/L Potassium 4.2 (3.5-5.1) mmol/L POC Chloride (101-112) mmol/L Chloride 94 L (98-107) mmol/L Carbon Dioxide < 2 L* (21-32) mmol/L POC Total CO2 (24-31) mmol/L Anion Gap TNP POC Anion Gap (16-25) mmol/L POC BUN (7-18) mg/dl BUN 26 H (6-23) mg/dl Creatinine 1.90 H (0.6-1.2) mg/dl POC Creatinine (0.6-1.3) mg/dl Est Cr Clr Drug Dosing 31.2 ml/min Est GFR ( Amer) 31.1 ml/min Est GFR (Non-Af Amer) 26.8 ml/min BUN/Creatinine Ratio 13.7 (10-20) Glucose 881 H* (70-99(Fasting)) mg/dl POC Glucose (70-99) mg/dl POC Glucose (other) (70-99) mg/dl Estimat Average Glucose mg/dl Hemoglobin A1c (4.5-5.6) % Lactate Cancelled Calcium 8.5 (8.5-10.1) mg/dl POC Ioniz Calcium [place] (1.12-1.32) mmol/l Magnesium 2.2 (1.7-2.4) mg/dl Total Bilirubin 0.4 (0.2-1.0) mg/dl Direct Bilirubin 0.1 (0-0.2) mg/dl AST 13 (13-39) U/L ALT 9 (7-52) U/L Alkaline Phosphatase 106 H (34-104) U/L Troponin I High Sens 11.8 (0-14) pg/ml Total Protein 6.6 (6.0-8.3) gm/dl Albumin 4.0 (3.4-5.0) gm/dl Procalcitonin TSH Urine Color Urine Appearance (Clear) Urine pH (4.5-7.5) Ur Specific [place] (1.000-1.030) Urine Protein (Negative) Urine Glucose (UA) (Negative) Urine Ketones (Negative) Urine Blood (Negative) Urine Nitrite (Negative) Urine Bilirubin (Negative) Urine Urobilinogen (Negative) Ur Leukocyte Esterase (Negative) Urine WBC (Auto) (0-5) /hpf Urine RBC (Auto) (0-4) /hpf U Hyaline Cast (Auto) (0-5) /lpf U Epithel Cells (Auto) (0-5) /lpf Urine Bacteria (Auto) (Negative) Blood Parasites ID Cancelled 07/18/22 07/18/22 07/18/22 Range/Units 16:07 16:07 16:18 WBC RBC Hgb POC Hgb (12.0-16.0) g/dl Hct POC Hct (37-47) % MCV MCH MCHC RDW Std Deviation RDW Coeff of Rossi Plt Count MPV Immature Gran % (Auto) Neut % (Auto) Lymph % (Auto) [place] % (Auto) Eos % (Auto) Baso % (Auto) Neut # (Auto) Lymph # (Auto) [place] # (Auto) Eos # (Auto) Baso # (Auto) Immature Gran # (Auto) Absolute Nucleated RBC Nucleated RBC % (auto) Neutrophils % (Manual) Band Neutrophils % Lymphocytes % (Manual) Prolymphocyte % Reactive Lymphs % (Man) Monocytes % (Manual) Eosinophils % (Manual) Basophils % (Manual) Metamyelocytes % (Man) Myelocytes % (Man) Promyelocytes % (Man) Blast Cells % (Manual) Plasma Cell % (Manual) Other Cells % Nucleated RBC % Neutrophils # (Manual) Band Neutrophils # Total Absolute Neuts Lymphocytes # (Manual) Prolymphocyte # Reactive Lymphs # Total Abs Lymphocytes Monocytes # (Manual) Eosinophils # (Manual) Basophils # (Manual) Metamyelocytes # (Man) Myelocytes # (Manual) Promyelocytes # (Man) Blast Cells # (Man) Plasma Cell # (Manual) Other Cells # Nucleated RBCs # (Man) Hypersegmented Neuts Hyposegmented Neuts Hypogranular Neuts Large Granular Lymphs # Lrg Granular Lymphs Hairy Cells Smudge Cells Toxic Granulation Toxic Vacuolation Dohle Bodies Mark Rods Platelet Estimate Hypogranular Platelets Clumped Platelets Giant Platelets Platelet Satelliting RBC Morphology Polychromasia Hypochromasia Poikilocytosis Basophilic Stippling Anisocytosis Microcytosis Macrocytosis Spherocytes Pappenheimer Bodies Sickle Cells Target Cells Tear Drop Cells Ovalocytes Stomatocytes Bautista-Scarsdale Bodies Echinocytes Acanthocytes (Spur) Rouleaux RBC Agglutinates Schistocytes Sezary Cell PT Cancelled INR Cancelled APTT Cancelled PTT Ratio Cancelled ABG pH < 7.00 L* (7.35-7.45) ABG pCO2 8 L (35-46) mmHg ABG pO2 132 H (80-95) mmHg ABG HCO3 2 L (19-24) mmol/L ABG O2 Saturation 99.2 H (90-95) % ABG Base Excess -30.1 L (-9-1.8) mEq/L [place] Test Pos (Pos) Oxygen Given ROOM AIR POC Sodium (135-144) mmol/L Sodium (136-145) mmol/L POC Potassium (3.3-5.0) mmol/L Potassium (3.5-5.1) mmol/L POC Chloride (101-112) mmol/L Chloride (98-107) mmol/L Carbon Dioxide (21-32) mmol/L POC Total CO2 (24-31) mmol/L Anion Gap POC Anion Gap (16-25) mmol/L POC BUN (7-18) mg/dl BUN (6-23) mg/dl Creatinine (0.6-1.2) mg/dl POC Creatinine (0.6-1.3) mg/dl Est Cr Clr Drug Dosing ml/min Est GFR ( Amer) ml/min Est GFR (Non-Af Amer) ml/min BUN/Creatinine Ratio (10-20) Glucose (70-99(Fasting)) mg/dl POC Glucose (70-99) mg/dl POC Glucose (other) (70-99) mg/dl Estimat Average Glucose mg/dl Hemoglobin A1c (4.5-5.6) % Lactate Calcium (8.5-10.1) mg/dl POC Ioniz Calcium [place] (1.12-1.32) mmol/l Magnesium (1.7-2.4) mg/dl Total Bilirubin (0.2-1.0) mg/dl Direct Bilirubin (0-0.2) mg/dl AST (13-39) U/L ALT (7-52) U/L Alkaline Phosphatase (34-104) U/L Troponin I High Sens (0-14) pg/ml Total Protein (6.0-8.3) gm/dl Albumin (3.4-5.0) gm/dl Procalcitonin Cancelled TSH Urine Color Urine Appearance (Clear) Urine pH (4.5-7.5) Ur Specific [place] (1.000-1.030) Urine Protein (Negative) Urine Glucose (UA) (Negative) Urine Ketones (Negative) Urine Blood (Negative) Urine Nitrite (Negative) Urine Bilirubin (Negative) Urine Urobilinogen (Negative) Ur Leukocyte Esterase (Negative) Urine WBC (Auto) (0-5) /hpf Urine RBC (Auto) (0-4) /hpf U Hyaline Cast (Auto) (0-5) /lpf U Epithel Cells (Auto) (0-5) /lpf Urine Bacteria (Auto) (Negative) Blood Parasites ID 07/18/22 07/18/22 07/18/22 Range/Units 16:18 16:18 16:18 WBC RBC Hgb POC Hgb (12.0-16.0) g/dl Hct POC Hct (37-47) % MCV MCH MCHC RDW Std Deviation RDW Coeff of Rossi Plt Count MPV Immature Gran % (Auto) Neut % (Auto) Lymph % (Auto) [place] % (Auto) Eos % (Auto) Baso % (Auto) Neut # (Auto) Lymph # (Auto) [place] # (Auto) Eos # (Auto) Baso # (Auto) Immature Gran # (Auto) Absolute Nucleated RBC Nucleated RBC % (auto) Neutrophils % (Manual) Band Neutrophils % Lymphocytes % (Manual) Prolymphocyte % Reactive Lymphs % (Man) Monocytes % (Manual) Eosinophils % (Manual) Basophils % (Manual) Metamyelocytes % (Man) Myelocytes % (Man) Promyelocytes % (Man) Blast Cells % (Manual) Plasma Cell % (Manual) Other Cells % Nucleated RBC % Neutrophils # (Manual) Band Neutrophils # Total Absolute Neuts Lymphocytes # (Manual) Prolymphocyte # Reactive Lymphs # Total Abs Lymphocytes Monocytes # (Manual) Eosinophils # (Manual) Basophils # (Manual) Metamyelocytes # (Man) Myelocytes # (Manual) Promyelocytes # (Man) Blast Cells # (Man) Plasma Cell # (Manual) Other Cells # Nucleated RBCs # (Man) Hypersegmented Neuts Hyposegmented Neuts Hypogranular Neuts Large Granular Lymphs # Lrg Granular Lymphs Hairy Cells Smudge Cells Toxic Granulation Toxic Vacuolation Dohle Bodies Mark Rods Platelet Estimate Hypogranular Platelets Clumped Platelets Giant Platelets Platelet Satelliting RBC Morphology Polychromasia Hypochromasia Poikilocytosis Basophilic Stippling Anisocytosis Microcytosis Macrocytosis Spherocytes Pappenheimer Bodies Sickle Cells Target Cells Tear Drop Cells Ovalocytes Stomatocytes Bautista-Scarsdale Bodies Echinocytes Acanthocytes (Spur) Rouleaux RBC Agglutinates Schistocytes Sezary Cell PT 11.3 INR 1.1 APTT 31.6 H PTT Ratio 1.1 ABG pH (7.35-7.45) ABG pCO2 (35-46) mmHg ABG pO2 (80-95) mmHg ABG HCO3 (19-24) mmol/L ABG O2 Saturation (90-95) % ABG Base Excess (-9-1.8) mEq/L Saravanan Test (Pos) Oxygen Given POC Sodium (135-144) mmol/L Sodium (136-145) mmol/L POC Potassium (3.3-5.0) mmol/L Potassium (3.5-5.1) mmol/L POC Chloride (101-112) mmol/L Chloride (98-107) mmol/L Carbon Dioxide (21-32) mmol/L POC Total CO2 (24-31) mmol/L Anion Gap POC Anion Gap (16-25) mmol/L POC BUN (7-18) mg/dl BUN (6-23) mg/dl Creatinine (0.6-1.2) mg/dl POC Creatinine (0.6-1.3) mg/dl Est Cr Clr Drug Dosing ml/min Est GFR ( Amer) ml/min Est GFR (Non-Af Amer) ml/min BUN/Creatinine Ratio (10-20) Glucose (70-99(Fasting)) mg/dl POC Glucose (70-99) mg/dl POC Glucose (other) (70-99) mg/dl Estimat Average Glucose mg/dl Hemoglobin A1c (4.5-5.6) % Lactate Calcium (8.5-10.1) mg/dl POC Ioniz Calcium [place] (1.12-1.32) mmol/l Magnesium (1.7-2.4) mg/dl Total Bilirubin (0.2-1.0) mg/dl Direct Bilirubin (0-0.2) mg/dl AST (13-39) U/L ALT (7-52) U/L Alkaline Phosphatase (34-104) U/L Troponin I High Sens (0-14) pg/ml Total Protein (6.0-8.3) gm/dl Albumin (3.4-5.0) gm/dl Procalcitonin 0.22 TSH 1.405 Urine Color Urine Appearance (Clear) Urine pH (4.5-7.5) Ur Specific [place] (1.000-1.030) Urine Protein (Negative) Urine Glucose (UA) (Negative) Urine Ketones (Negative) Urine Blood (Negative) Urine Nitrite (Negative) Urine Bilirubin (Negative) Urine Urobilinogen (Negative) Ur Leukocyte Esterase (Negative) Urine WBC (Auto) (0-5) /hpf Urine RBC (Auto) (0-4) /hpf U Hyaline Cast (Auto) (0-5) /lpf U Epithel Cells (Auto) (0-5) /lpf Urine Bacteria (Auto) (Negative) Blood Parasites ID 07/18/22 07/18/22 07/18/22 Range/Units 16:38 17:16 17:39 WBC RBC Hgb POC Hgb (12.0-16.0) g/dl Hct POC Hct (37-47) % MCV MCH MCHC RDW Std Deviation RDW Coeff of Rossi Plt Count MPV Immature Gran % (Auto) Neut % (Auto) Lymph % (Auto) [place] % (Auto) Eos % (Auto) Baso % (Auto) Neut # (Auto) Lymph # (Auto) [place] # (Auto) Eos # (Auto) Baso # (Auto) Immature Gran # (Auto) Absolute Nucleated RBC Nucleated RBC % (auto) Neutrophils % (Manual) Band Neutrophils % Lymphocytes % (Manual) Prolymphocyte % Reactive Lymphs % (Man) Monocytes % (Manual) Eosinophils % (Manual) Basophils % (Manual) Metamyelocytes % (Man) Myelocytes % (Man) Promyelocytes % (Man) Blast Cells % (Manual) Plasma Cell % (Manual) Other Cells % Nucleated RBC % Neutrophils # (Manual) Band Neutrophils # Total Absolute Neuts Lymphocytes # (Manual) Prolymphocyte # Reactive Lymphs # Total Abs Lymphocytes Monocytes # (Manual) Eosinophils # (Manual) Basophils # (Manual) Metamyelocytes # (Man) Myelocytes # (Manual) Promyelocytes # (Man) Blast Cells # (Man) Plasma Cell # (Manual) Other Cells # Nucleated RBCs # (Man) Hypersegmented Neuts Hyposegmented Neuts Hypogranular Neuts Large Granular Lymphs # Lrg Granular Lymphs Hairy Cells Smudge Cells Toxic Granulation Toxic Vacuolation Dohle Bodies Mark Rods Platelet Estimate Hypogranular Platelets Clumped Platelets Giant Platelets Platelet Satelliting RBC Morphology Polychromasia Hypochromasia Poikilocytosis Basophilic Stippling Anisocytosis Microcytosis Macrocytosis Spherocytes Pappenheimer Bodies Sickle Cells Target Cells Tear Drop Cells Ovalocytes Stomatocytes Bautista-Scarsdale Bodies Echinocytes Acanthocytes (Spur) Rouleaux RBC Agglutinates Schistocytes Sezary Cell PT INR APTT PTT Ratio ABG pH (7.35-7.45) ABG pCO2 (35-46) mmHg ABG pO2 (80-95) mmHg ABG HCO3 (19-24) mmol/L ABG O2 Saturation (90-95) % ABG Base Excess (-9-1.8) mEq/L Saravanan Test (Pos) Oxygen Given POC Sodium (135-144) mmol/L Sodium (136-145) mmol/L POC Potassium (3.3-5.0) mmol/L Potassium (3.5-5.1) mmol/L POC Chloride (101-112) mmol/L Chloride (98-107) mmol/L Carbon Dioxide (21-32) mmol/L POC Total CO2 (24-31) mmol/L Anion Gap POC Anion Gap (16-25) mmol/L POC BUN (7-18) mg/dl BUN (6-23) mg/dl Creatinine (0.6-1.2) mg/dl POC Creatinine (0.6-1.3) mg/dl Est Cr Clr Drug Dosing ml/min Est GFR ( Amer) ml/min Est GFR (Non-Af Amer) ml/min BUN/Creatinine Ratio (10-20) Glucose (70-99(Fasting)) mg/dl POC Glucose > 600 H* (70-99) mg/dl POC Glucose (other) (70-99) mg/dl Estimat Average Glucose 355 mg/dl Hemoglobin A1c 14.0 H (4.5-5.6) % Lactate Calcium (8.5-10.1) mg/dl POC Ioniz Calcium [place] (1.12-1.32) mmol/l Magnesium (1.7-2.4) mg/dl Total Bilirubin (0.2-1.0) mg/dl Direct Bilirubin (0-0.2) mg/dl AST (13-39) U/L ALT (7-52) U/L Alkaline Phosphatase (34-104) U/L Troponin I High Sens (0-14) pg/ml Total Protein (6.0-8.3) gm/dl Albumin (3.4-5.0) gm/dl Procalcitonin TSH Urine Color Yellow Urine Appearance Clear (Clear) Urine pH 5.0 (4.5-7.5) Ur Specific [place] 1.025 (1.000-1.030) Urine Protein 1+ H (Negative) Urine Glucose (UA) 3+ H (Negative) Urine Ketones 4+ H (Negative) Urine Blood Negative (Negative) Urine Nitrite Negative (Negative) Urine Bilirubin Negative (Negative) Urine Urobilinogen Negative (Negative) Ur Leukocyte Esterase Negative (Negative) Urine WBC (Auto) 0 (0-5) /hpf Urine RBC (Auto) 0-4 (0-4) /hpf U Hyaline Cast (Auto) 5-10 H (0-5) /lpf U Epithel Cells (Auto) 10-20 H (0-5) /lpf Urine Bacteria (Auto) Negative (Negative) Blood Parasites ID 07/18/22 Range/Units 17:39 WBC RBC Hgb POC Hgb (12.0-16.0) g/dl Hct POC Hct (37-47) % MCV MCH MCHC RDW Std Deviation RDW Coeff of Rossi Plt Count MPV Immature Gran % (Auto) Neut % (Auto) Lymph % (Auto) [place] % (Auto) Eos % (Auto) Baso % (Auto) Neut # (Auto) Lymph # (Auto) [place] # (Auto) Eos # (Auto) Baso # (Auto) Immature Gran # (Auto) Absolute Nucleated RBC Nucleated RBC % (auto) Neutrophils % (Manual) Band Neutrophils % Lymphocytes % (Manual) Prolymphocyte % Reactive Lymphs % (Man) Monocytes % (Manual) Eosinophils % (Manual) Basophils % (Manual) Metamyelocytes % (Man) Myelocytes % (Man) Promyelocytes % (Man) Blast Cells % (Manual) Plasma Cell % (Manual) Other Cells % Nucleated RBC % Neutrophils # (Manual) Band Neutrophils # Total Absolute Neuts Lymphocytes # (Manual) Prolymphocyte # Reactive Lymphs # Total Abs Lymphocytes Monocytes # (Manual) Eosinophils # (Manual) Basophils # (Manual) Metamyelocytes # (Man) Myelocytes # (Manual) Promyelocytes # (Man) Blast Cells # (Man) Plasma Cell # (Manual) Other Cells # Nucleated RBCs # (Man) Hypersegmented Neuts Hyposegmented Neuts Hypogranular Neuts Large Granular Lymphs # Lrg Granular Lymphs Hairy Cells Smudge Cells Toxic Granulation Toxic Vacuolation Dohle Bodies Mark Rods Platelet Estimate Hypogranular Platelets Clumped Platelets Giant Platelets Platelet Satelliting RBC Morphology Polychromasia Hypochromasia Poikilocytosis Basophilic Stippling Anisocytosis Microcytosis Macrocytosis Spherocytes Pappenheimer Bodies Sickle Cells Target Cells Tear Drop Cells Ovalocytes Stomatocytes Bautista-Scarsdale Bodies Echinocytes Acanthocytes (Spur) Rouleaux RBC Agglutinates Schistocytes Sezary Cell PT INR APTT PTT Ratio ABG pH (7.35-7.45) ABG pCO2 (35-46) mmHg ABG pO2 (80-95) mmHg ABG HCO3 (19-24) mmol/L ABG O2 Saturation (90-95) % ABG Base Excess (-9-1.8) mEq/L [place] Test (Pos) Oxygen Given POC Sodium (135-144) mmol/L Sodium (136-145) mmol/L POC Potassium (3.3-5.0) mmol/L Potassium (3.5-5.1) mmol/L POC Chloride (101-112) mmol/L Chloride (98-107) mmol/L Carbon Dioxide (21-32) mmol/L POC Total CO2 (24-31) mmol/L Anion Gap POC Anion Gap (16-25) mmol/L POC BUN (7-18) mg/dl BUN (6-23) mg/dl Creatinine (0.6-1.2) mg/dl POC Creatinine (0.6-1.3) mg/dl Est Cr Clr Drug Dosing ml/min Est GFR ( Amer) ml/min Est GFR (Non-Af Amer) ml/min BUN/Creatinine Ratio (10-20) Glucose (70-99(Fasting)) mg/dl POC Glucose (70-99) mg/dl POC Glucose (other) (70-99) mg/dl Estimat Average Glucose mg/dl Hemoglobin A1c (4.5-5.6) % Lactate 3.1 H* Calcium (8.5-10.1) mg/dl POC Ioniz Calcium [place] (1.12-1.32) mmol/l Magnesium (1.7-2.4) mg/dl Total Bilirubin (0.2-1.0) mg/dl Direct Bilirubin (0-0.2) mg/dl AST (13-39) U/L ALT (7-52) U/L Alkaline Phosphatase (34-104) U/L Troponin I High Sens (0-14) pg/ml Total Protein (6.0-8.3) gm/dl Albumin (3.4-5.0) gm/dl Procalcitonin TSH Urine Color Urine Appearance (Clear) Urine pH (4.5-7.5) Ur Specific [place] (1.000-1.030) Urine Protein (Negative) Urine Glucose (UA) (Negative) Urine Ketones (Negative) Urine Blood (Negative) Urine Nitrite (Negative) Urine Bilirubin (Negative) Urine Urobilinogen (Negative) Ur Leukocyte Esterase (Negative) Urine WBC (Auto) (0-5) /hpf Urine RBC (Auto) (0-4) /hpf U Hyaline Cast (Auto) (0-5) /lpf U Epithel Cells (Auto) (0-5) /lpf Urine Bacteria (Auto) (Negative) Blood Parasites ID Administered Medications Heparin Sodium (Porcine) (Heparin Sod 5,000 Unit/0.5 Ml Vial) 5,000 units SQ Q8 [facility] Stop: 08/17/22 21:59 Last Admin: 07/18/22 21:13 Dose: 5,000 units Documented By: VALDO Insulin Human Regular 250 (units/ Sodium Chloride) 250 mls @ 12.4 mls/hr IV .[id number] [facility]; Protocol Stop: 08/17/22 16:14 Last Titration: 07/18/22 21:33 Dose: 14.9 units/hr, 14.9 mls/hr Documented By: VALDO Co-signed By: PUJA Titration: 07/18/22 20:34 Dose: 12.4 units/hr, 12.4 mls/hr Documented By: VALDO Co-signed By: HUGO Titration: 07/18/22 18:54 Dose: 10.3 units/hr, 10.3 mls/hr Documented By: FELIPE Co-signed By: RONNY Admin: 07/18/22 17:35 Dose: 8.6 units/hr, 8.6 mls/hr Documented By: FELIPE Co-signed By: QGV Potassium Chloride (K Shane / Wtr) 10 meq in 100 mls @ 100 mls/hr IV Q1H [facility] Stop: 07/19/22 00:59 Last Admin: 07/18/22 21:13 Dose: 100 mls/hr Documented By: VALDO Potassium Chloride 40 meq/ (Sodium Chloride) 1,020 mls @ 200 mls/hr IV .Q5H6M [facility]; Protocol Stop: 08/17/22 20:59 Last Admin: 07/18/22 21:09 Dose: 200 mls/hr Documented By: VALOD Insulin Aspart (Insulin Aspart Per Unit) 0 units SC ACHS [facility] Stop: 08/17/22 16:29 Last Admin: 07/18/22 20:11 Dose: Not Given Documented By: Admin: 07/18/22 17:41 Dose: Not Given Documented By: FELIPE Co-signed By: QGV Discontinued Medications Sodium Chloride (Nss 1000ml) 2,000 mls @ 999 mls/hr IV .Q2H1M ONE Stop: 07/18/22 17:55 Last Infusion: 07/18/22 18:36 Dose: 0 mls/hr Documented By: Admin: 07/18/22 16:13 Dose: 999 mls/hr Documented By: RONNY Cefepime HCl (Maxipime) 2,000 mg in 20 mls @ 5 mls/min IV NOW STA; Protocol Stop: 07/18/22 15:58 Last Admin: 07/18/22 16:19 Dose: 5 mls/min Documented By: RONNY Calcium Gluconate 2,000 mg/ (Sodium Chloride) 70 mls @ 280 mls/hr IV NOW STA Stop: 07/18/22 17:19 Last Infusion: 07/18/22 18:35 Dose: 0 mls/hr Documented By: Admin: 07/18/22 17:34 Dose: 280 mls/hr Documented By: FELIPE Sodium Chloride (Nss 1000ml) 1,000 mls @ 999 mls/hr IV .Q1H1M ONE Stop: 07/18/22 18:12 Last Infusion: 07/18/22 18:36 Dose: 0 mls/hr Documented By: Admin: 07/18/22 17:22 Dose: 999 mls/hr Documented By: FELIPE Sodium Chloride (Nss 1000ml) 500 mls @ 999 mls/hr IV .Q31M ONE Stop: 07/18/22 17:42 Last Infusion: 07/18/22 19:33 Dose: 0 mls/hr Documented By: Admin: 07/18/22 17:22 Dose: 999 mls/hr Documented By: FELIPE Lactated Ringer's (Lr) 1,000 mls @ 200 mls/hr IV .Q5H [facility] Stop: 08/17/22 19:29 Last Infusion: 07/18/22 21:07 Dose: 0 mls/hr Documented By: Admin: 07/18/22 20:10 Dose: 200 mls/hr Documented By: VALDO Lactated Ringer's (Lr) 1,000 mls @ 999 mls/hr IV .Q1H1M ONE Stop: 07/18/22 21:08 Last Infusion: 07/18/22 21:26 Dose: 0 mls/hr Documented By: Admin: 07/18/22 20:10 Dose: 999 mls/hr Documented By: VALDO Insulin Human Regular (Novolin-R Bolus From Bag) 8.6 units IV NOW STA Stop: 07/18/22 16:14 Last Admin: 07/18/22 17:35 Dose: 8.6 units Documented By: FELIPE Co-signed By: QGV Miscellaneous (Stat Insulin Drip) 1 each N/A NOW STA Stop: 07/18/22 16:04 Last Admin: 07/18/22 17:41 Dose: Not Given Documented By: FELIPE Cunninghamaneous (Dka Goal Range 150-250 Mg/Dl) 1 each N/A ONE ONE Stop: 07/18/22 16:04 Last Admin: 07/18/22 17:41 Dose: Not Given Documented By: FELIPE Ondansetron HCl (Ondansetron Inj 2 Mg/Ml 2 Ml Vial) 4 mg IV NOW STA Stop: 07/18/22 15:56 Last Admin: 07/18/22 16:17 Dose: 4 mg Documented By: RONNY Sodium Bicarbonate (Sodium Bicarbonate 8.4% Inj 50 Meq/50 Ml Vial) 100 meq IV NOW STA Stop: 07/18/22 16:02 Last Admin: 07/18/22 16:20 Dose: 100 meq Documented By: RONNY Imaging Data Radiologist's Impression: Chest X-Ray 07/18/22 15:55 XR chest 1V portable CLINICAL HISTORY: sob TECHNIQUE: Single frontal radiograph of the chest was obtained. Comparison: Comparison is made to chest radiograph 06/07/2022 FINDINGS: No lines and tubes are seen. Calcified aortic knob is seen. The lungs are clear. No evidence of pleural effusion or pneumothorax. IMPRESSION: No acute chest disease. ACT 112: Negative or not required by law. Electronically signed by: Jd Pena M.D. 07/18/2022 5:[address] 07/18/22 15:55 CT head/brain wo con CLINICAL HISTORY: confusion Technique: Contiguous axial CT images of the head were acquired from the base of the skull to the vertex without intravenous contrast administration. Images were viewed in brain, subdural and bone windows. Automated dose lowering techniques and/or adjustment according to patient size were utilized for this exam. Comparison: Comparison is made to CT head 01/21/2022 Findings: Areas of decreased attenuation are present in the periventricular and subcortical white matter bilaterally consistent with small vessel ischemic disease. Generalized cerebral atrophy with commensurate enlargement of the ventricles, sulci, and cisterns is also present. There is no acute intracranial hemorrhage or evidence of acute territorial infarction. No shift of the midline structures, mass effect, or extra-axial abnormalities are shown. Atheroscleroti c calcifications are present in the intracranial segments of the internal carotid arteries. Imaged portions of the paranasal sinuses and mastoid air cells are clear. The o rbits appear normal. There are no acute fractures of the calvaria or scalp swelling. Impression: No acute intracranial hemorrhage, no evidence of acute territorial infarction or other acute intracranial disease process. ACT 112: Negative or not required by law. Electronically signed by: Jd Pena M.D. 07/18/2022 5:15 PM Abdomen/Pelvis CT 07/18/22 15:58 CT abd pelvis wo con CLINICAL HISTORY: vomiting TECHNIQUE: Helical axial images of the abdomen and pelvis were obtained. Automated dose lowering techniques and/or adjustment according to patient size were utilized for this exam. This exam was performed without intravenous cont rast. CT DOSE: 1841.33 mGy.cm COMPARISON: Comparison is made to CT abdomen pelvis 04/28/2012 FINDINGS: Lower chest: No acute abnormality. Liver: Unremarkable. No focal lesions are seen. Gallbladder and biliary tree: Patient is status post cholecystectomy. No intra- or extrahepatic biliary ductal dilation. Pancreas: Unremarkable, no focal lesions. Spleen: Unremarkable. Adrenals: Unremarkable. Kidneys and ureters: Unremarkable. Bladder: Rahman catheter is seen. Reproductive organs: Unremarkable. Bowel: Diverticulosis is seen without evidence of diverticulitis. The appendix is normal. Lymph nodes Retroperitoneal: Unremarkable. Pelvic: Unremarkable. Mesenteric: Unremarkable. Peritoneum: Normal. Vessels: Atherosclerotic calcifications are seen. Abdominal wall: Redemonstration of asymmetric fatty atrophy of the right rectus abdominis muscle. Bones: Mild degenerative changes are seen. IMPRESSION: No acute abnormalities and in particular no evidence of obstruction. Diverticulosis is seen without diverticulitis. ACT 112: Negative or not required by law. Electronically signed by: Jd Pena M.D. 07/18/2022 5:23 PM Discharge Plan Visit Data Chief Complaint: Shortness of Breath/Dyspnea Stated Complaint: BREATHING DIFFICULTY ED Provider: Ollie Metz Discharge Problem: Altered mental status, DKA (diabetic ketoacidosis), Acute hyperkalemia, Acidosis, Leukocytosis, Tachypnea Patient Disposition: Admitted As Inpatient Condition: Serious Discharge Instructions Interventions: ED Discharge Assessment Last Done: 07/18/22 19:08
[2022-07-18 16:33] LABS: Base Excess ABG -30.1 mEq/L (-9-1.8); HCO3 ABG 2 mmol/L (19-24); Oxygen Saturation ABG 99.2 % (90-95); PCO2 ABG 8 mmHg (35-46); PO2 ABG 132 mmHg (80-95)
[2022-07-18 16:37] LABS: Allen Test Pos (Pos); pH ABG < 7.00 (7.35-7.45)
[2022-07-18 16:57] LABS: Appearance Urine Clear (Clear); Bacteria Urine Automated Negative (Negative); Bilirubin Urine Negative (Negative); Blood Urine Negative (Negative); Color Urine Yellow; Glucose Urine UA 3+ (Negative); Ketones Urine 4+ (Negative); Leukocyte Esterase Urine Negative (Negative); Nitrite Urine Negative (Negative); Protein Urine 1+ (Negative); RBC Urine Automated 0-4 /hpf (0-4); Specific Gravity Urine 1.025 (1.000-1.030); Urobilinogen Urine Negative (Negative); WBC Urine Automated 0 /hpf (0-5)
[2022-07-18] MEDS ORDERED: CALCIUM GLUCONATE 10% 2,000 MG in SODIUM CHLORIDE 0.9% 50 ML IV STA (17:05)
--- NOTE | 2022-07-18 17:10 | XRay Report ---
XR chest 1V portable CLINICAL HISTORY: sob TECHNIQUE: Single frontal radiograph of the chest was obtained. Comparison: Comparison is made to chest radiograph 06/07/2022 FINDINGS: No lines and tubes are seen. Calcified aortic knob is seen. The lungs are clear. No evidence of pleur al effusion or pneumothorax. IMPRESSION: No acute chest disease. ACT 112: Negative or not required by law. Electronically signed by: Jd Pena M.D. 07/18/2022 5:09 PM
[2022-07-18] MEDS ORDERED: SODIUM CHLORIDE 0.9% 1000ML 500 ML IV ONE (17:12)
[2022-07-18] MEDS ORDERED: SODIUM CHLORIDE 0.9% 1000ML 1,000 ML IV ONE (17:12)
--- NOTE | 2022-07-18 17:17 | CT Scan Report ---
CT head/brain wo con CLINICAL HISTORY: confusion Technique: Contiguous axial CT images of the head were acquired from the base of the skull to the steve octavia without intravenous contrast administration. Images were viewed [facility] brain, subdural [facility] Automated dose lowering techniques and/or adjustment according to patient size were utilized for this exam. Comparison: Comparison is made to CT head 01/21/2022 Findings: Areas of decreased attenuation are present in the periventricular and subcortical white matter bilate rally consistent with small vessel ischemic disease. Generalized cerebral atrophy with commensurate e nlargement of the ventricles, sulci, and cisterns is also present. There is no acute intracranial hem orrhage or evidence of acute territorial infarction. No shift of the midline structures, mass effect, or extra-axial abnormalities are shown. Atherosclerotic calcifications are present in the intracran ial segments of the internal carotid arteries. Imaged portions of the paranasal sinuses and mastoid air cells are clear. The orbits appear normal. There are no acute fractures of the calvaria or scalp swelling. Impression: No acute intracranial hemorrhage, no evidence of acute territorial infarction or other acute intracra nial disease process. ACT 112: Negative or not required by law. Electronically signed by: Jd Pena M.D. 07/18/2022 5:15 PM
--- NOTE | 2022-07-18 17:24 | CT Scan Report ---
CT abd pelvis wo con CLINICAL HISTORY: vomiting TECHNIQUE: Helical axial images of the abdomen and pelvis were obtained. Automated dose lowering tech niques and/or adjustment according to patient size were utilized for this exam. This exam was perfor med without intravenous contrast. CT DOSE: 1841.33 mGy.cm COMPARISON: Comparison is made to CT abdomen pelvis 04/28/2012 FINDINGS: Lower chest: No acute abnormality. Liver: Unremarkable. No focal lesions are seen. Gallbladder and biliary tree: Patient is status post cholecystectomy. No intra- or extrahepatic bilia ry ductal dilation. Pancreas: Unremarkable, no focal lesions. Spleen: Unremarkable. Adrenals: Unremarkable. Kidneys and ureters: Unremarkable. Bladder: Rahman catheter is seen. Reproductive organs: Unremarkable. Bowel: Diverticulosis is seen without evidence of diverticulitis. The appendix is normal. Lymph nodes Retroperitoneal: Unremarkable. Pelvic: Unremarkable. Mesenteric: Unremarkable. Peritoneum: Normal. Vessels: Atherosclerotic calcifications are seen. Abdominal wall: Redemonstration of asymmetric fatty atrophy of the right rectus abdominis muscle. Bones: Mild degenerative changes are seen. IMPRESSION: No acute abnormalities and in particular no evidence of obstruction. Diverticulosis is seen without d iverticulitis. ACT 112: Negative or not required by law. Electronically signed by: Jd Pena M.D. 07/18/2022 5:23 PM
[2022-07-18] MEDS: INSULIN REGULAR 250 UNITS in SODIUM CHLORIDE 0.9% 247.5 ML IV SCH (17:35)
[2022-07-18] MEDS: INSULIN ASPART PER UNIT SC SCH ×2 (17:41→20:11)
[2022-07-18 17:44] LABS: INR 1.1 (0.9-1.1); Partial Thromboplastin Ratio 1.1; Partial Thromboplastin Time 31.6 Seconds (21.0-31.0); Prothrombin Time 11.3 Seconds (9.0-12.0)
[2022-07-18 17:57] LABS: Troponin I High Sensitivity 11.8 pg/ml (0-14)
--- NOTE | 2022-07-18 18:02 | History & Physical Report ---
Date of Service July 18, 2022 Assessment & Plan (1) DKA (diabetic ketoacidosis): (2) High anion gap metabolic acidosis: Plan: Patient is 67-year-old female with PMH DM, on insulin pump, HTN, dyslipidemia, hypothyroidism, GERD, obesity, hypothyroidism, anxiety, depression presented to ER for altered mental status. Recent history multiple hospital admissions for DKA secondary to insulin pump issues. Today in ER tachycardic, tachypneic and found to have BS. pH <7.0, bicarb 6, POC A. Lactate: 3.1, procalcitonin: 0.22, UA: 3+gluc, 4+ketones, 1+protein CT Head: no acute intracranial abnormality CT ABD/PELVIS:No acute abnormalities, no obstruction CXR: No acute infiltrate In ER given 3.5L NSS, sodium bicarb, insulin bolus and drip started. Given empiric cefepime Repeat POC BSG >600 Continue insulin drip Admit ICU ER physician spoke to on-call, Dr. Stahl Further management per oim architect (3) Acute hyperkalemia: Plan: POC K: 7.4 In ER given insulin, calcium gluconate Lab value K: 4.2 (4) Hyponatremia: Plan: Pseudohyponatremia secondary to hyperglycemia (5) JENNY (acute kidney injury): Plan: Cr: 1.9. Baseline Cr: ~0.7 Monitor renal functions (6) Hypothyroidism: Plan: On levothyroxine (7) HTN (hypertension): Plan: On lisinopril at home (8) Mixed hyperlipidemia: Plan: On simvastatin at home (9) GERD (gastroesophageal reflux disease): Plan: On PPI at home DVT Prophylaxis Heparin SQ Full Code as per prior recent admissions Follows with Dr Saxena for routine care Pt was seen and care coordinated with Dr Willard. See addendum History of Present Illness Chief Complaint: unresponsive Primary Care Provider: Oswaldo Saxena MD Patient is 67-year-old female with PMH DM, on insulin pump, HTN, dyslipidemia, hypothyroidism, GERD, obesity, hypothyroidism, anxiety, depression presented to ER for reported unresponsiveness. History obtained from chart review and discussion with ER provider. Reported that patient was found confused and minimally responsive by family this afternoon and was last seen earlier this morning. Reports of noted vomit. EMS reported BSG greater than 600. Upon ER arrival patient noted to be tachypneic and is unable to give further history. Prior chart review patient with recent admission for DKA in April 2022 and most recently 06/07/22-06/10/22 for DKA. Recent outpatient visit with [facility] diabetes clinic notes reviewed and it is reported her prior insulin pump was having frequent occlusions. Patient received new insulin pump however continued frequent occlusions leading to suspension of pump and patient forgetting to restart. It is reported patient has only been receiving 25% or less of basal dosing. Patient admitted that she was refilling reservoir with insulin instead of changing cartridge out. She has also not been giving herself appropriate boluses and was soft and starting infusion set instead of using automatic insertion future. Allergies Allergy/AdvReac Type Severity Reaction Status Date / Time dextromethorphan Allergy Severe Difficulty Verified 06/07/22 10:07 Breathing doxylamine Allergy Severe Difficulty Verified 06/07/22 10:07 Breathing pseudoephedrine Allergy Severe Difficulty Verified 06/07/22 10:07 Breathing glyburide Allergy Intermediate RASH Verified 06/07/22 10:07 tetanus toxoid, adsorbed Allergy Intermediate painful Verified 06/07/22 10:07 joints Ethanol Allergy Severe Difficulty Uncoded 06/07/22 10:07 Breathing Home Medications Medication Instructions Recorded Confirmed Type aspirin 81 mg tablet,delayed 81 mg PO DAILY 01/29/21 07/18/22 History release (Adult Low Dose Aspirin) diphenhydramine HCl 25 mg capsule 25 mg PO HS PRN Sleep 01/29/21 07/18/22 History fluocinonide 0.05 % topical 1 applic topical DAILY 01/29/21 07/18/22 History solution fluoxetine 40 mg capsule 40 mg PO DAILY 01/29/21 07/18/22 History levothyroxine 125 mcg tablet 125 mcg PO DAILY 01/29/21 07/18/22 History Dexcom G6 Broker Associate (blood-glucose #9 ea 03/27/21 07/18/22 Rx meter,continuous) Dexcom G6 Transmitter #1 ea 03/27/21 07/18/22 Rx (blood-glucose transmitter) lansoprazole 30 mg capsule,delayed 30 mg PO DAILYBB 06/03/21 07/18/22 History release zolpidem 10 mg tablet 10 mg PO HS PRN Sleep 06/03/21 07/18/22 History OneTouch Ultra Test (blood sugar #400 ea 07/10/21 07/18/22 Rx diagnostic) blood-glucose meter (OneTouch #1 ea 03/20/22 07/18/22 Rx Ultra2 Meter kit) insulin aspart U-100 100 unit/mL See Rx Instructions continuous 04/24/22 07/18/22 Rx subcutaneous solution (Novolog subcutaneous infusion DAILY #90 mL U-100 Insulin aspart) simvastatin 10 mg tablet 10 mg PO DAILY 05/06/22 07/18/22 History trazodone 50 mg tablet 50 mg PO HS 05/06/22 07/18/22 History sodium di- and 1 tab PO QID #16 tabs 06/10/22 07/18/22 Rx monophosphate-potassium phos monobasic 250 mg tablet (Phospha 250 Neutral) lisinopril 5 mg tablet 5 mg PO DAILY 07/18/22 07/18/22 History Past Med/Surg History Medical History (Updated 07/18/22 @ 18:40 by Evelyn Locke PA-C) DKA (diabetic ketoacidosis) GERD (gastroesophageal reflux disease) HTN (hypertension) Hypothyroidism Mixed hyperlipidemia Presence of insulin pump Uncontrolled type 1 diabetes mellitus with hyperglycemia Surgical History History of cholecystectomy 1987 History of hysterectomy Non cancerous fibroid removal of 6 lbs History of shoulder surgery History of tonsillectomy Family History Grandmother (Maternal) Diabetes Mother Hypertension Heart disease Grandmother (Paternal) Diabetes Social History Smoking Status: Never smoker Second Hand Exposure: No; Hx Alcohol Use: No Hx Substance Use: No Preferred Language: Syrian Communication Ability: Impaired Communication Ability Comment: unable this time Metal Sprayer Protective Coating Required: No Beliefs That Will Affect Care: None marital status: Unknown Current Living Situation: Family Current Living Situation Comment: Grandson Feels Safe at Home: Yes Assistive Devices: None Assistive Devices Comment: per last admission informtion Review of Systems Review of Systems: Unobtainable due to cognitive status Physical Exam Physical Exam: General: +ill appearing, obese elderly female Head: normocephalic, atraumatic Eyes: PERRL, EOM's intact, conjunctiva non-injected, anicteric ENT: normal inspection external ears, nose, mucous membranes dry Neck: supple, trachea midline Lungs: clear, RR: 40, O2 sat 100% on RA, no wheezing/rhonchi/rales appreciated CV: +tachycardia, rate 120, regular rhythm, no pretibial edema Abd: protuberant, normal BS, soft, no apparent tenderness to palpation Ext: +mottled extremities, no erythema, can actively move arms and legs Neuro:+obtunded, drowsy, does moan and try to say words however words not clear Skin: as above in extremities, dry Results & Data Results & Data ([facility]) Vital Signs (Past 12 Hours) Vital Signs Temp Pulse Resp BP Pulse Ox O2 Del Method 07/18/22 16:31 116/65 07/18/22 16:31 120 H 34 H 100 07/18/22 16:30 121 H 38 H 98 07/18/22 16:29 79/67 L 07/18/22 16:29 122 H 36 H 83 L 07/18/22 16:20 121 H 0 L 100 07/18/22 16:10 124 H 8 L 100 07/18/22 16:10 141/83 H 07/18/22 16:05 127 H 0 L 100 07/18/22 15:57 120 H 20 100 Room Air 07/18/22 15:21 35 C L 126 H 40 H 119/62 99 Room Air Laboratory Results Short CBC 07/18/22 Range/Units 16:07 WBC Cancelled Hgb Cancelled Hct Cancelled Plt Count Cancelled BMP 07/18/22 16:07 Sodium 130 L Potassium 4.2 Chloride 94 L Carbon Dioxide < 2 L* BUN 26 H Creatinine 1.90 H Calcium 8.5 Liver Function 07/18/22 Range/Units 16:07 Total Bilirubin 0.4 (0.2-1.0) mg/dl Direct Bilirubin 0.1 (0-0.2) mg/dl AST 13 (13-39) U/L ALT 9 (7-52) U/L Alkaline Phosphatase 106 H (34-104) U/L Albumin 4.0 (3.4-5.0) gm/dl Urine 07/18/22 Range/Units 16:38 Urine Color Yellow Urine Appearance Clear (Clear) Urine pH 5.0 (4.5-7.5) Ur Specific [place] 1.025 (1.000-1.030) Urine Protein 1+ H (Negative) Urine Glucose (UA) 3+ H (Negative) Diagnostic Findings Chest X-Ray 07/18/22 15:55 XR chest 1V portable CLINICAL HISTORY: sob TECHNIQUE: Single frontal radiograph of the chest was obtained. Comparison: Comparison is made to chest radiograph 06/07/2022 FINDINGS: No lines and tubes are seen. Calcified aortic knob is seen. The lungs are clear. No evidence of pleural effusion or pneumothorax. IMPRESSION: No acute chest disease. ACT 112: Negative or not required by law. Electronically signed by: Jd Pena M.D. 07/18/2022 5:[address] 07/18/22 15:55 CT head/brain wo con CLINICAL HISTORY: confusion Technique: Contiguous axial CT images of the head were acquired from the base of the skull to the vertex without intravenous contrast administration. Images were viewed in brain, subdural and bone windows. Automated dose lowering techniques and/or adjustment according to patient size were utilized for this exam. Comparison: Comparison is made to CT head 01/21/2022 Findings: Areas of decreased attenuation are present in the periventricular and subcortical white matter bilaterally consistent with small vessel ischemic disease. Generalized cerebral atrophy with commensurate enlargement of the ventricles, sulci, and cisterns is also present. There is no acute intracranial hemorrhage or evidence of acute territorial infarction. No shift of the midline structures, mass effect, or extra-axial abnormalities are shown. Atherosc lerotic calcifications are present in the intracranial segments of the internal carotid arteries. Imaged portions of the paranasal sinuses and mastoid air cells are clear. The orbits appear normal. There are no acute fractures of the calvaria or scalp swelling. Impression: No acute intracranial hemorrhage, no evidence of acute territorial infarction or other acute intracranial disease process. ACT 112: Negative or not required by law. Electronically signed by: Jd Pena M.D. 07/18/2022 5:15 PM Abdomen/Pelvis CT 07/18/22 15:58 CT abd pelvis wo con CLINICAL HISTORY: vomiting TECHNIQUE: Helical axial images of the abdomen and pelvis were obtained. Automated dose lowering techniques and/or adjustment according to patient size were utilized for this exam. This exam was performed without intravenous contrast. CT DOSE: 1841.33 mGy.cm COMPARISON: Comparison is made to CT abdomen pelvis 04/28/2012 FINDINGS: Lower chest: No acute abnormality. Liver: Unremarkable. No focal lesions are seen. Gallbladder and biliary tree: Patient is status post cholecystectomy. No intra- or extrahepatic biliary ductal dilation. Pancreas: Unremarkable, no focal lesions. Spleen: Unremarkable. Adrenals: Unremarkable. Kidneys and ureters: Unremarkable. Bladder: Rahman catheter is seen. Reproductive organs: Unremarkable. Bowel: Diverticulosis is seen without evidence of diverticulitis. The appendix is normal. Lymph nodes Retroperitoneal: Unremarkable. Pelvic: Unremarkable. Mesenteric: Unremarkable. Peritoneum: Normal. Vessels: Atherosclerotic calcifications are seen. Abdominal wall: Redemonstration of asymmetric fatty atrophy of the right rectus abdominis muscle. Bones: Mild degenerative changes are seen. IMPRESSION: No acute abnormalities and in particular no evidence of obstruction. Diverticulosis is seen without diverticulitis. ACT 112: Negative or not required by law. Electronically signed by: Jd Pena M.D. 07/18/2022 5:23 PM Supervising Physician Co-Signing Physician Notes I have seen and examined the patient and have discussed the case with the provider above. I agree with the assessment and plan as stated. 67-year-old type I diabetic on insulin pump presents today with acute metabolic encephalopathy secondary to severe DKA and hyperkalemia. She has had multiple recent admissions to the hospital for DKA. HAGMA present with an anion gap of 26, bicarb is 6. Initial potassium was 7.4. She was started on IV fluids with 2 L bolus of normal saline. Empiric coverage with cefepime 2 g was given. Another 1.5 L of fluid was ordered approximately 1 hour later with calcium and insulin started around that time. She is confused and weak, falling asleep easily/lethargic. Cannot obtain an accurate history from her. I contacted her daughter, Mary, who lives in [place] and spoke with her about things for about 35 minutes by phone. She reports frustration with the frequent admissions, and reviewed the details of changes made after each prior admission. I reviewed the recent endocrinology note, which is also reviewed below, to give clarity to the issue in order to help her with a solution. She s requesting a call from case management tomorrow to further discuss options. Mary states that her oldest adult son lives with the patient but is not always home, as he works and goes to school. He is not in an arrangement where he is actively providing care for the patient, per Mary, who doesn't "want to put that on him." She states her son mentioned patient was vomiting this morning. He went to school and came back around 2pm telling his mother she looked sick, which is how she came to the ER today. She was recently admitted because of DKA after her insulin pump battery failed. Outpatient records also reveal a meeting with endocrinology on 06/12/2022 after her hospitalization for DKA. During this assessment trends were noted with her insulin pump including frequent occlusions leading to suspension of pump and forgetting to restart as a result of this she would only receive 25% of basal dosing on some days which could be much less on others. He also noted no loading of the reservoir in the history. Upon further clarification the patient family reported refilling a reservoir with insulin instead of changing it out which is likely the cause of all the occlusions. The main reason given for this was "one less thing to do." She was made aware at that time that this could be causing frequent occlusions and emphasized the importance of changing everything out on her pump every 2 to 3 days. He also noticed she was self inserting the infusion set which could potentially increase risk of kinked cannula. He encourage patient to use automatic insertion feature which is how the infusion sets are designed to be used. She continues to struggle with boluses. Her alarms were set on her pump to serve as a reminder to bolus around mealtime. He stressed the importance of getting her back on Dexcom which she has not been using for many months and is likely a big contributor of DKA admissions. She subsequently was hospitalized again for DKA after this admission and presents again in the same state. On physical exam she is obtunded but can be awakened and whisper some words that are clear. Blood pressure is 116/65 pulse is 120 and she is tachypneic but with clear lungs on auscultation. Her temp is 35 C taken axillary. Her initial pressure was 79/67 improving to the state of blood pressure after fluid bolus. She is oxygenating well on room air. Cardiac exam reveals tachycardia with no evidence of murmur gallops or rubs. There is no evidence of hypervolemia or edema. She is clinically dehydrated. Mucous membranes are dry. There is no gross focal neurologic deficit. Abdomen soft nontender nondistended. Work-up in the ER reveals hemoconcentration with a lepvc-bm-sjye H&H of . CBC is pending. Coags are normal. Blood gas reveals a pH less than 7 with a PCO2 of 8. Llnsh-ca-ldnk sodium was 125 corrected for hyperglycemia it is 139. Qtsyw-ts-eamh's potassium is 7.4, bicarb is 6 with an anion gap of 26. She has evidence of acute renal failure with BUN 39, creatinine 1.6. Baseline creatinine is normal. Glucose was greater than 700. Ionized calcium was 1.10. Highly sensitive troponin was 11.8. Procalcitonin was 0.22. TSH was normal. Urinalysis revealed evidence of proteinuria glucosuria and ketones. There was no evidence of infection in the urine, respiratory panel is pending. Head CT is clear, chest x-ray is clear, CT abdomen pelvis without contrast reveals no acute abnormality in particular no evidence of obstruction. Diverticulosis is noted without diverticulitis. EKG is pending. Blood cultures are pending. Overall this is a [id number] I diabetic that is uncontrolledpresenting withsevere diabetic ketoacidosis (HAGMA)with electrolyte abnormalities includinghyperkalemia, hypocalcemia. She hasacute renal failureandacute metabolic encephalopathysecondary to acidosis. She hasdepressionand is on fluoxetine. She is not septic and has no clear source of infection but is being covered with empiric cefepime at this time. She istachycardicbecause of severe dehydrationand is improving with fluid resuscitation. She istachypneic because of her acidosis which is helping her to correct this. Her is oxygenation is 100% on room air. She has been started on insulin therapy with a basal rate of 8.6 units/h after a bolus of 8.6 units in the ER. This was given around 5:30 PM. Recheck of her glucose will occur in 1 hour. Calcium was given for cardiac membrane stability in the setting of hyperkalemia which will likely improve with addition of insulin and rehydration efforts. She is being transferred to the ICU for continued close monitoring. 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 Laurel Hill will need to take place to improve her glycemic management at home and prevent recurrent admissions moving forward. Daughter was extensively counseled on options moving forward to help mom including but not limited to [facility] or some other independent living, either here or in [place], hiring a private duty nurse to come daily and ensure meds are being administered correctly, or living with family who can help care for her. Patient typically functions independently and drives. She has been neglecting her lawn, house cleaning and her health, per her daughter who is trying to manage her household from a distance. Appreciate assistance with this difficult social situation. Kristen Willard DO [facility]
[2022-07-18 18:11] LABS: Alanine Aminotransferase 9 U/L (7-52); Alkaline Phosphatase 106 U/L (34-104); Aspartate Aminotransferase 13 U/L (13-39); BUN Creatinine Ratio 13.7 (10-20); Bilirubin Direct 0.1 mg/dl (0-0.2); Bilirubin,Total 0.4 mg/dl (0.2-1.0); Blood Urea Nitrogen 26 mg/dl (6-23); Calcium 8.5 mg/dl (8.5-10.1); Carbon Dioxide < 2 mmol/L (21-32); Chloride 94 mmol/L (98-107); Creatinine Clr Calc Pharmacy 31.2 ml/min; Est GFR (African American) 31.1 ml/min; Est GFR (Non-African American) 26.8 ml/min; Magnesium 2.2 mg/dl (1.7-2.4); Potassium 4.2 mmol/L (3.5-5.1); Sodium 130 mmol/L (136-145); Total Protein 6.6 gm/dl (6.0-8.3)
[2022-07-18 18:36] LABS: Influenza A virus by PCR Negative (Neg); Influenza B virus by PCR Negative (Neg); RSV by PCR Negative (Neg); SARS CoV2 RNA(COVID-19)Cepheid NEGATIVE (Negative)
[2022-07-18 18:49] LABS: Glucose 881 mg/dl (70-99(Fasting))
[2022-07-18 18:51] LABS: Estimated Average Glucose 355 mg/dl
[2022-07-18] MEDS ORDERED: ICU Protocol for HYPERglycemia PRN (19:18)
[2022-07-18] MEDS ORDERED: LACTATED RINGER'S 1,000 ML IV SCH (19:30)
[2022-07-18] MEDS ORDERED: INFLUENZA VACCINE HIGH DOSE PF 65+ 0.7 ML SYR IM ONE (19:47)
[2022-07-18] MEDS ORDERED: PNEUMOCOCCAL POLYSACCHARIDES 25 MCG/0.5 ML VIAL/SYR IM ONE (19:47)
--- NOTE | 2022-07-18 19:48 | Critical Care Consultation ---
Date of Consultation July 18, 2022 Assessment & Plan (1) Diabetic ketoacidosis associated with type 1 diabetes mellitus: Likely 2/2 pump non-adherence vs malfunction DKA insulin protocol Continue aggressive IVF hydration, bolus PRN POCUS shows persistent hypovolemia Maintain NPO for now Repeat VBG now BMP Q4H, add K to maintenance fluids if < 5, aggressively replete electrolytes Trend lactate to clearance Received cefepime, will hold on continued antibiotic coverage (2) JENNY (acute kidney injury): Prerenal ATN due to hypovolemia Continue IVF resuscitation Rahman for accurate I/Os Bolus PRN Hold FAST FOOD SHIFT LEAD ACEI (3) Hyponatremia: Corrected Na is WNL, no intervention needed (4) HTN (hypertension): Hold FAST FOOD SHIFT LEAD antihypertensive due to JENNY Can add IV regimen, but will avoid for now while resuscitating (5) Respiratory alkalosis: Repeat VBG now, will place patient on CPAP for work of breathing while underlying pathology resolves (6) High anion gap metabolic acidosis: In the setting of lactic acidosis and ketosis, improving Supervising Physician Co-Signing Physician Notes Patient seen and examined. MAR reviewed. Discussed with critical care CLARISSA and agree with assessment plan as noted. Please refer to my progress note from 07/19/2022 for additional details History of Present Illness Reason for Consultation: Diabetic ketoacidosis Attending Physician: Kristen Willard DO History of Present Illness Ms. Madyson Mckeon is a 67YO F with a history significant for DMI on insulin pump with multiple admissions for DKA and pump malfunction, hypertension, dyslipidemia, hypothyroidism, anxiety/depression who presented to [facility] ED due to altered mentation and vomiting x1 day. Patient was found to have DKA with initial BG > 500, pH < 7. CT A/P pursued was unremarkable. K of 7.4 was medically managed. Resuscitated with 3.5L NSS and started on insulin infusion. ICU was asked to admit due to significant metabolic abnormalities. Patient was seen on arrival to ICU. She is somnolent and tachypneic, awakens to voice. Oriented to person, place. Mildly tachycardic, but hemodynamically stable. LR infusions started. ROS + shortness of breath, weakness, some diarrhea though unable to elaborate, otherwise negative. POCUS performed showing grossly intact biventricular function. RV small and underfilled, IVC collapsible > 50%. Allergies Allergy/AdvReac Type Severity Reaction Status Date / Time dextromethorphan Allergy Severe Difficulty Verified 06/07/22 10:07 Breathing doxylamine Allergy Severe Difficulty Verified 06/07/22 10:07 Breathing pseudoephedrine Allergy Severe Difficulty Verified 06/07/22 10:07 Breathing glyburide Allergy Intermediate RASH Verified 06/07/22 10:07 tetanus toxoid, adsorbed Allergy Intermediate painful Verified 06/07/22 10:07 joints Ethanol Allergy Severe Difficulty Uncoded 06/07/22 10:07 Breathing Home Medications Medication Instructions Recorded Confirmed Type aspirin 81 mg tablet,delayed 81 mg PO DAILY 01/29/21 07/18/22 History release (Adult Low Dose Aspirin) diphenhydramine HCl 25 mg capsule 25 mg PO HS PRN Sleep 01/29/21 07/18/22 History fluocinonide 0.05 % topical 1 applic topical DAILY 01/29/21 07/18/22 History solution fluoxetine 40 mg capsule 40 mg PO DAILY 01/29/21 07/18/22 History levothyroxine 125 mcg tablet 125 mcg PO DAILY 01/29/21 07/18/22 History Dexcom G6 Stripper Cutter Machine (blood-glucose #9 ea 03/27/21 07/18/22 Rx meter,continuous) Dexcom G6 Transmitter #1 ea 03/27/21 07/18/22 Rx (blood-glucose transmitter) lansoprazole 30 mg capsule,delayed 30 mg PO DAILYBB 06/03/21 07/18/22 History release zolpidem 10 mg tablet 10 mg PO HS PRN Sleep 06/03/21 07/18/22 History OneTouch Ultra Test (blood sugar #400 ea 07/10/21 07/18/22 Rx diagnostic) blood-glucose meter (OneTouch #1 ea 03/20/22 07/18/22 Rx Ultra2 Meter kit) insulin aspart U-100 100 unit/mL See Rx Instructions continuous 04/24/22 07/18/22 Rx subcutaneous solution (Novolog subcutaneous infusion DAILY #90 mL U-100 Insulin aspart) simvastatin 10 mg tablet 10 mg PO DAILY 05/06/22 07/18/22 History trazodone 50 mg tablet 50 mg PO HS 05/06/22 07/18/22 History sodium di- and 1 tab PO QID #16 tabs 06/10/22 07/18/22 Rx monophosphate-potassium phos monobasic 250 mg tablet (Phospha 250 Neutral) lisinopril 5 mg tablet 5 mg PO DAILY 07/18/22 07/18/22 History Patient History Medical History DKA (diabetic ketoacidosis) GERD (gastroesophageal reflux disease) HTN (hypertension) Hypothyroidism Mixed hyperlipidemia Presence of insulin pump Uncontrolled type 1 diabetes mellitus with hyperglycemia Surgical History History of cholecystectomy 1987 History of hysterectomy Non cancerous fibroid removal of 6 lbs History of shoulder surgery History of tonsillectomy Family History Grandmother (Maternal) Diabetes Mother Hypertension Heart disease Grandmother (Paternal) Diabetes Social History Smoking Status: Never smoker Second Hand Exposure: No; Hx Alcohol Use: No Hx Substance Use: No Preferred Language: [place] Communication Ability: Impaired Communication Ability Comment: unable this time Director Quality Assurance Required: No Beliefs That Will Affect Care: None marital status: Unknown Current Living Situation: Family Current Living Situation Comment: Grandson Feels Safe at Home: Yes Assistive Devices: None Assistive Devices Comment: per last admission informtion Physical Exam Constitutional: Chronically-ill appearing elderly woman Eyes: Pupils 2mm and reactive ENMT: Dry mucous membranes Respiratory: Tachypneic, shallow breathing CTA bilaterally Cardiovascular: Rate/Rhythm: regular rhythm and + tachycardic Some mottling BLE though likely 2/2 hypothermia (34C) Gastrointestinal (Abdomen): Hypoactive bowel sounds, soft and nontender Skin: Cool skin, intact Neurologic: GCS 14, no focal deficits Results & Data Results & Data ([facility]) Vital Signs (Past 12 Hours) Vital Signs Temp Pulse Pulse Resp BP BP Pulse Ox 07/18/22 19:11 119 H 27 H 153/79 H 100 07/18/22 19:08 104 H 26 H 142/68 H 98 07/18/22 19:00 119 H 100 07/18/22 19:00 36 H 153/89 H 07/18/22 18:45 115 H 100 07/18/22 18:45 146/76 H 07/18/22 18:40 116 H 100 07/18/22 18:38 148/80 H 07/18/22 18:38 114 H 100 07/18/22 18:30 114 H 100 07/18/22 18:20 115 H 100 07/18/22 18:10 115 H 100 07/18/22 18:00 114 H 100 07/18/22 17:50 120 H 100 07/18/22 17:40 118 H 100 07/18/22 17:30 117 H 36 H 100 07/18/22 17:20 119 H 36 H 100 07/18/22 17:13 40 H 100 07/18/22 17:13 126/69 07/18/22 17:10 36 H 99 07/18/22 17:00 38 H 07/18/22 16:50 117 H 31 H 100 07/18/22 16:40 120 H 33 H 100 07/18/22 16:31 116/65 07/18/22 16:31 120 H 34 H 100 07/18/22 16:30 121 H 38 H 98 07/18/22 16:29 79/67 L 07/18/22 16:29 122 H 36 H 83 L 07/18/22 16:20 121 H 40 H 100 07/18/22 16:10 124 H 40 H 100 07/18/22 16:10 141/83 H 07/18/22 16:05 127 H 40 H 100 07/18/22 15:57 120 H 20 100 07/18/22 15:21 35 C L 126 H 40 H 119/62 99 O2 Del Method O2 Flow Rate 07/18/22 19:11 07/18/22 19:08 Nasal Cannula 2 07/18/22 19:00 07/18/22 19:00 07/18/22 18:45 07/18/22 18:45 07/18/22 18:40 07/18/22 18:38 07/18/22 18:38 07/18/22 18:30 07/18/22 18:20 07/18/22 18:10 07/18/22 18:00 07/18/22 17:50 07/18/22 17:40 07/18/22 17:30 07/18/22 17:20 07/18/22 17:13 07/18/22 17:13 07/18/22 17:10 07/18/22 17:00 07/18/22 16:50 07/18/22 16:40 07/18/22 16:31 07/18/22 16:31 07/18/22 16:30 07/18/22 16:29 07/18/22 16:29 07/18/22 16:20 07/18/22 16:10 07/18/22 16:10 07/18/22 16:05 07/18/22 15:57 Room Air 07/18/22 15:21 Room Air Coding Level of Care Code 38150 Inpt Consult Level 1 Diagnoses Diabetic ketoacidosis associated with type 1 diabetes mellitus E10.10 JENNY (acute kidney injury) N17.9 Hyponatremia E87.1 HTN (hypertension) I10 Respiratory alkalosis E87.3 High anion gap metabolic acidosis E87.29 Time Spent (min) 35
[2022-07-18 19:58] LABS: Base Excess VBG -28.2 mEq/L; HCO3 VBG 4 mmol/L; Oxygen Saturation VBG 84.5 %; PCO2 VBG 18 mmHg (38-50); PO2 VBG 54 mmHg; pH VBG < 7.00 (7.36-7.41)
[2022-07-18] MEDS ORDERED: LACTATED RINGER'S 1,000 ML IV ONE ×2 (20:08→22:54)
[2022-07-18] MEDS ORDERED: PHARMACY GLYCEMIC MGMT CONSULT PRN (20:33)
[2022-07-18 20:40] LABS: Calcium 8.4 mg/dl (8.5-10.1); Creatinine Clr Calc Pharmacy 38.1 ml/min; Est GFR (African American) 39.4 ml/min; Potassium 3.3 mmol/L (3.5-5.1)
[2022-07-18] MEDS: POTASSIUM CHLORIDE 40 MEQ in SODIUM CHLORIDE 0.45 % 1,000 ML IV SCH (21:09)
[2022-07-18] MEDS: POTASSIUM CHLORIDE / WTR 10 MEQ/100 ML PLCT IV SCH ×3 (21:13→23:15)
[2022-07-18] MEDS: HEPARIN SOD 5,000 UNIT/0.5 ML VIAL SQ SCH (21:13)
[2022-07-18 22:03] LABS: Hematocrit (blood only) 45.5 % (34.1-44.9); Mean Corpuscular Hemoglobin 30.8 pg (25.0-34.0); Mean Corpuscular Hgb Conc 30.8 g/dL (32.0-36.0); Platelet Count 461 K/uL (130-400); RDW Coefficient of Variation 13.2 % (11.5-14.5); Red Blood Count 4.55 M/uL (3.93-5.22); White Blood Count 32.65 K/ul (4.8-10.8)
[2022-07-18] MEDS ORDERED: STAT IV STA (22:18)
[2022-07-18 22:19] LABS: Basophils # (auto) 0.21 K/uL (0-0.2); Basophils % (auto) 0.6 %; Eosinophils # (auto) 0.01 K/uL (0-0.50); Immature Granulocytes # (auto) 0.99 K/uL (0.00-0.02); Lymphocytes % (auto) 10.4 %; Monocytes # (auto) 3.16 K/uL (0.24-0.82); Monocytes % (auto) 9.7 %; Neutrophils # (auto) 24.88 K/uL (1.4-6.5); Neutrophils % (auto) 76.3 %
[2022-07-18] MEDS ORDERED: SODIUM BICARBONATE 8.4% 75 MEQ in SODIUM CHLORIDE 0.45 % 1,000 ML IV SCH (22:30)
[2022-07-18 23:36] LABS: BUN Creatinine Ratio 16.2 (10-20); Calcium 8.1 mg/dl (8.5-10.1); Creatinine Clr Calc Pharmacy 40.1 ml/min; Est GFR (Non-African American) 36.3 ml/min; Magnesium 1.7 mg/dl (1.7-2.4); Potassium 3.3 mmol/L (3.5-5.1)
[2022-07-18] MEDS ORDERED: MAGNESIUM SULFATE / D5W 1 GM/100 ML BAG IV ONE (23:42)
[2022-07-19] MEDS: POTASSIUM CHLORIDE / WTR 10 MEQ/100 ML PLCT IV SCH ×12 (00:15→16:35)
[2022-07-19] MEDS ORDERED: SODIUM BICARBONATE 8.4% 150 MEQ in DEXTROSE 5% 1,000 ML IV SCH (01:15)
[2022-07-19] MEDS: POTASSIUM CHLORIDE 40 MEQ in SODIUM CHLORIDE 0.45 % 1,000 ML IV SCH (01:54)
[2022-07-19] MEDS: MAGNESIUM SULFATE / D5W 1 GM/100 ML BAG IV SCH ×4 (01:55→22:11)
[2022-07-19 02:17] LABS: Base Excess VBG -19.5 mEq/L; HCO3 VBG 8 mmol/L; Oxygen Saturation VBG 76.7 %; PCO2 VBG 24 mmHg (38-50); PO2 VBG 41 mmHg; pH VBG 7.13 (7.36-7.41)
[2022-07-19 04:29] LABS: Hematocrit (blood only) 37.2 % (34.1-44.9); Hemoglobin 12.5 g/dl (12.0-16.0); Mean Corpuscular Hemoglobin 31.3 pg (25.0-34.0); Mean Corpuscular Hgb Conc 33.6 g/dL (32.0-36.0); Mean Platelet Volume 11.7 fL (9.4-12.3); Platelet Count 326 K/uL (130-400); RDW Coefficient of Variation 13.2 % (11.5-14.5); RDW Standard Deviation 45.2 fL (36.4-46.3); White Blood Count 23.75 K/ul (4.8-10.8)
[2022-07-19 04:30] LABS: Basophils # (auto) 0.07 K/uL (0-0.2); Basophils % (auto) 0.3 %; Echinocytes 3+; Eosinophils # (auto) 0.12 K/uL (0-0.50); Eosinophils % (auto) 0.5 %; Immature Granulocytes # (auto) 0.59 K/uL (0.00-0.02); Immature Granulocytes % (auto) 2.5 %; Lymphocytes # (auto) 2.36 K/uL (1.2-3.4); Lymphocytes % (auto) 9.9 %; Monocytes % (auto) 10.9 %; Neutrophils # (auto) 18.01 K/uL (1.4-6.5); Neutrophils % (auto) 75.9 %
[2022-07-19 04:34] LABS: BUN Creatinine Ratio 15.2 (10-20); Calcium 8.1 mg/dl (8.5-10.1); Creatinine Clr Calc Pharmacy 47.5 ml/min; Est GFR (African American) 51.5 ml/min; Est GFR (Non-African American) 44.5 ml/min; Potassium 3.2 mmol/L (3.5-5.1)
[2022-07-19 04:35] LABS: Magnesium 4.1 mg/dl (1.7-2.4); Phosphorus < 1.0 mg/dl (2.5-4.9)
[2022-07-19] MEDS ORDERED: POTASSIUM PHOS 3 MMOL/1 ML INFUSION IV STA ×2 (04:40→19:48)
[2022-07-19] MEDS ORDERED: POTASSIUM PHOSPHATE 30 MMOL in SODIUM CHLORIDE 0.9% 500 ML IV ONE (05:00)
[2022-07-19] MEDS: HEPARIN SOD 5,000 UNIT/0.5 ML VIAL SQ SCH ×3 (06:02→22:12)
--- NOTE | 2022-07-19 07:45 | Critical Care Progress Note ---
Date of Service July 19, 2022 Assessment & Plan (1) Altered mental status: (2) DKA (diabetic ketoacidosis): (3) Acute hyperkalemia: (4) Leukocytosis: (5) JENNY (acute kidney injury): Plan Impression: 67-year-old female with diabetes presenting with severe DKA, hyper kalemia, acute renal failure, and severe metabolic acidosis with encephalopathy. She has been initiated on bicarb infusion with improvement in her metabolic abnormalities. 24-hour events: Patient was admitted to the ICU. She has been maintained on insulin overnight. Electrolyte replacements have been initiated. She is remained hemodynamically stable. She was placed on CPAP due to increased work of breathing. Recommendations: 1. Neurologic: Remains encephalopathic likely secondary to metabolic derangements. Exam is nonfocal. Continue to observe clinically. If fails to improve with correction of her metabolic abnormalities, additional evaluation may be warranted. Holding SSRI. Hold trazodone at night as well and Ambien. 2. Cardiovascular: The patient is hemodynamically stable currently. We will hold her antihypertensives at this point time. 3. Respiratory: Tachypnea secondary to metabolic acidosis. She was compensating for low pH. No indication for positive pressure ventilation at this point time. Suspect her respiratory status will improve with correction of her acid-base abnormalities. Supplemental oxygen as needed. 4. Endocrine: Severe DKA. Will discontinue bicarb drip as this may paradoxically increase intracellular acidosis. Her bicarb should correct with insulin therapy and amish of effective circulating volume. We will place him. We told the patient can take p.o. We will provide glucose blood sugar levels until anion gap is closed. Continue BMPs every 4 hours with magnesium and phosphate levels. 5. Renal: Acute kidney injury: Likely secondary to decreased effective circulating volume. Continue to trend. We will replace magnesium and phosphate as needed. Do not think we need to intervene on her hyperkalemia as this will likely correct with improvement in her acidosis. Her EKG is normal currently with no evidence of peaked T waves or prolonged QRS. Hyponatremia likely sec ondary to pseudohyponatremia and does not require intervention. 6. ID: No current issues. Continue to follow for now. Suspect her elevated white blood cell count is related to stress response. 7. GI: N.p.o. for now. When the patient is improved from a mental status perspective, can consider the addition of noncaloric clears until she is off insulin infusion. Transition her PPI to IV until she is able to take p.o. 8. Heme-onc: No current issues. DVT prophylaxis. Patient remains critically ill at this point time with multiple metabolic abnormalities. Discussed with critical care nurse at bedside. No family immediately available. We will keep in ICU pending improvement in her metabolic abnormalities. A total of 50 minutes in critical care time was spent evaluation management s tabilization of this patient with life-threatening illness. Admission and Anticipated Discharge Date Admission Date: July 18, 2022 Subjective Patient seen and examined. EMR reviewed. Discussed with critical care nurse at bedside. The patient is on BiPAP. This was removed. She is breathing comfortably. She remains slightly encephalopathic. Review of Systems Review of Systems: Unobtainable due to reduced consciousness Physical Exam Constitutional: WD/WN, vitals as above Neck: trachea midline, no thyromegaly Respiratory: normal respiratory effort, lungs clear to auscultation Cardiovascular: RRR, no murmur, no edema Gastrointestinal (Abdomen): normal bowel sounds, soft, nontender, no hepatosplenomegaly Musculoskeletal: Extremities: extremities normal to inspection Skin: no rashes, warm and dry Neurologic: Nonfocal exam Lymphatic: no cervical lymphadenopathy Results & Data Results & Data ([facility]) Vital Signs (Past 12 Hours) Vital Signs Temp Pulse Resp BP Pulse Ox FiO2 07/19/22 04:38 99 H 15 100 35 07/19/22 04:00 37.2 C 100 H 14 100 07/19/22 04:00 123/68 07/19/22 03:00 37.0 C 104 H 21 100 07/19/22 03:00 134/64 07/19/22 02:00 132/65 07/19/22 01:06 135/61 07/19/22 01:06 36.3 C L 112 H 27 H 100 07/19/22 00:00 36.0 C L 119 H 28 H 100 07/19/22 00:00 140/69 07/18/22 23:00 35.7 C L 123 H 28 H 100 07/18/22 23:00 117/55 L 07/18/22 22:01 35.1 C L 125 H 29 H 100 07/18/22 22:01 122/59 L 07/19/22 00:00 119 H 07/18/22 22:10 123 H 33 H 100 36 07/18/22 21:00 34.6 C L 118 H 25 H 100 07/18/22 21:00 147/68 H 07/18/22 20:00 34.3 C L 118 H 27 H 100 07/18/22 20:00 128/66 07/18/22 20:27 117 H 28 H 100 35 Critical Care Results & Data Vital Signs (Past 12 Hours) Vital Signs Temp Pulse Resp BP Pulse Ox FiO2 07/19/22 04:38 99 H 15 100 35 07/19/22 04:00 37.2 C 100 H 14 100 07/19/22 04:00 123/68 07/19/22 03:00 37.0 C 104 H 21 100 07/19/22 03:00 134/64 07/19/22 02:00 132/65 07/19/22 01:06 135/61 07/19/22 01:06 36.3 C L 112 H 27 H 100 07/19/22 00:00 36.0 C L 119 H 28 H 100 07/19/22 00:00 140/69 07/18/22 23:00 35.7 C L 123 H 28 H 100 07/18/22 23:00 117/55 L 07/18/22 22:01 35.1 C L 125 H 29 H 100 07/18/22 22:01 122/59 L 07/19/22 00:00 119 H 07/18/22 22:10 123 H 33 H 100 36 07/18/22 21:00 34.6 C L 118 H 25 H 100 07/18/22 21:00 147/68 H 07/18/22 20:00 34.3 C L 118 H 27 H 100 07/18/22 20:00 128/66 07/18/22 20:27 117 H 28 H 100 35 Lab & Micro Results (Past 24 Hours) RBC 4.00 M/uL (3.93-5.22) 07/19/22 WBC 23.75 K/ul (4.8-10.8) H 07/19/22 Hgb 12.5 g/dl (12.0-16.0) 07/19/22 Hct 37.2 % (34.1-44.9) 07/19/22 MCV 93.0 fL (80.0-100.0) 07/19/22 MCH 31.3 pg (25.0-34.0) 07/19/22 MCHC 33.6 g/dL (32.0-36.0) 07/19/22 RDW Standard Deviation 45.2 fL (36.4-46.3) 07/19/22 RDW Coefficient of Variation 13.2 % (11.5-14.5) 07/19/22 Plt Count 326 K/uL (130-400) 07/19/22 MPV 11.7 fL (9.4-12.3) 07/19/22 Neutrophils (%) (Auto) 75.9 % 07/19/22 Lymphocytes (%) (Auto) 9.9 % 07/19/22 Monocytes # (Auto) 2.60 K/uL (0.24-0.82) H 07/19/22 Eosinophils # (Auto) 0.12 K/uL (0-0.50) 07/19/22 Immature Granulocyte % (Auto) 2.5 % 07/19/22 Neutrophils # (Auto) 18.01 K/uL (1.4-6.5) H 07/19/22 Lymphocytes # (Auto) 2.36 K/uL (1.2-3.4) 07/19/22 Monocytes # (Auto) 2.60 K/uL (0.24-0.82) H 07/19/22 Eosinophils # (Auto) 0.12 K/uL (0-0.50) 07/19/22 Basophils # (Auto) 0.07 K/uL (0-0.2) 07/19/22 Immature Granulocyte # (Auto) 0.59 K/uL (0.00-0.02) H 07/19 Echinocytes 3+ 07/19/22 Na 136 mmol/L (136-145) 07/19/22 K 3.2 mmol/L (3.5-5.1) L 07/19/22 Cl 108 mmol/L (98-107) H 07/19/22 CO2 12 mmol/L (21-32) L 07/19/22 Anion Gap 16 (3-11) H 07/19/22 BUN 19 mg/dl (6-23) 07/19/22 Creatinine 1.25 mg/dl (0.6-1.2) H 07/19/22 Estimated GFR ( Amer) 51.5 ml/min 07/19/22 Estimated GFR (Non-Af Amer) 44.5 ml/min 07/19/22 BUN/Creatinine Ratio 15.2 (10-20) 07/19/22 Glu 301 mg/dl (70-99(Fasting)) H* 07/19/22 Ca 8.1 mg/dl (8.5-10.1) L 07/19/22 Phosphorus Level < 1.0 mg/dl (2.5-4.9) L* 07/19/22 Total Bilirubin 0.4 mg/dl (0.2-1.0) 07/18/22 Direct Bilirubin 0.1 mg/dl (0-0.2) 07/18/22 AST 13 U/L (13-39) 07/18/22 ALT 9 U/L (7-52) 07/18/22 Alkaline Phosphatase 106 U/L (34-104) H 07/18/22 TP 6.6 gm/dl (6.0-8.3) 07/18/22 Albumin 4.0 gm/dl (3.4-5.0) 07/18/22 Mg 4.1 mg/dl (1.7-2.4) H 07/19/22 03:28 Calcium Level 8.1 mg/dl (8.5-10.1) L 07/19/22 03:28 Prothromb Time International Ratio 1.1 (0.9-1.1) 07/18/22 16:1 8 Venous Blood pH 7.13 (7.36-7.41) L 07/19/22 01:28 Venous Blood Partial Pressure CO2 24 mmHg (38-50) L 07/19/22 01 :28 Venous Blood Partial Pressure O2 41 mmHg 07/19/22 01:28 Venous Blood HCO3 8 mmol/L 07/19/22 01:28 Venous Blood Base Excess -19.5 mEq/L 07/19/22 01:28 Venous Blood Oxygen Saturation 76.7 % 07/19/22 01:28 Arterial Blood pH < 7.00 (7.35-7.45) L* 07/18/22 16:18 Arterial Blood Partial Pressure CO2 8 mmHg (35-46) L 07/18/22 1 6:18 Arterial Blood Partial Pressure O2 132 mmHg (80-95) H 07/18/22 16:18 Arterial Blood HCO3 2 mmol/L (19-24) L 07/18/22 16:18 Arterial Blood Base Excess -30.1 mEq/L (-9-1.8) L 07/18/22 16:1 8 Arterial Blood Oxygen Saturation 99.2 % (90-95) H 07/18/22 16:1 8 Blood Gas Oxygen Given ROOM AIR 07/18/22 16:18 Saravanan Test Pos (Pos) 07/18/22 16:18 Diagnostic Findings (Past 24 Hours) Chest X-Ray 07/18/22 15:55 XR chest 1V portable CLINICAL HISTORY: sob TECHNIQUE: Single frontal radiograph of the chest was obtained. Comparison: Comparison is made to chest radiograph 06/07/2022 FINDINGS: No lines and tubes are seen. Calcified aortic knob is seen. The lungs are clear. No evidence of pleural effusion or pneumothorax. IMPRESSION: No acute chest disease. ACT 112: Negative or not required by law. Electronically signed by: Jd Pena M.D. 07/18/2022 5:[address] 07/18/22 15:55 CT head/brain wo con CLINICAL HISTORY: confusion Technique: Contiguous axial CT images of the head were acquired from the base of the skull to the vertex without intravenous contrast administration. Images were viewed in brain, subdural and bone windows. Automated dose lowering techniques and/or adjustment according to patient size were utilized for this exam. Comparison: Comparison is made to CT head 01/21/2022 Findings: Areas of decreased attenuation are present in the periventricular and grande bcortical white matter bilaterally consistent with small vessel ischemic disease. Generalized cerebral atrophy with commensurate enlargement of the ventricles, sulci, and cisterns is also present. There is no acute intracranial hemorrhage or evidence of acute territorial infarction. No shift of the midline structures, mass effect, or extra-axial abnormalities are shown. Atherosclerotic calcifications are present in the intracranial segments of the internal carotid arteries. Imaged portions of the paranasal sinuses and mastoid air cells are clear. The orbits appear normal. There are no acute fractures of the calvaria or scalp swelling. Impression: No acute intracranial hemorrhage, no evidence of acute territorial infarction or other acute intracranial disease process. ACT 112: Negative or not required by law. Electronically signed by: Jd Pena M.D. 07/18/2022 5:15 PM Abdomen/Pelvis CT 07/18/22 15:58 CT abd pelvis wo con CLINICAL HISTORY: vomiting TECHNIQUE: Helical axial images of the abdomen and pelvis were obtained. Automated dose lowering techniques and/or adjustment according to patient size were utilized for this exam. This exam was performed without intravenous contrast. CT DOSE: 1841.33 mGy.cm COMPARISON: Comparison is made to CT abdomen pelvis 04/28/2012 FINDINGS: Lower chest: No acute abnormality. Liver: Unremarkable. No focal lesions are seen. Gallbladder and biliary tree: Patient is status post cholecystectomy. No intra- or extrahepatic biliary ductal dilation. Pancreas: Unremarkable, no focal lesions. Spleen: Unremarkable. Adrenals: Unremarkable. Kidneys and ureters: Unremarkable. Bladder: Rahman catheter is seen. Reproductive organs: Unremarkable. Bowel: Diverticulosis is seen without evidence of diverticulitis. The appendix is normal. Lymph nodes Retroperitoneal: Unremarkable. Pelvic: Unremarkable. Mesenteric: Unremarkable. Peritoneum: Normal. Vessels: Atherosclerotic calcifications are seen. Abdominal wall: Redemonstration of asymmetric fatty atrophy of the right rectus abdominis muscle. Bones: Mild degenerative changes are seen. IMPRESSION: No acute abnormalities and in particular no evidence of obstruction. Diverticulosis is seen without diverticulitis. ACT 112: Negative or not required by law. Electronically signed by: Jd Pena M.D. 07/18/2022 5:23 PM I & O Totals 24 Hours 07/18/22 07/19/22 07/20/22 06:59 06:59 05:59 Intake Total 9125.301 / 9125.301 Output Total 3325 / 3325 Balance 5800.301 / 5800.301 Cumulative 07/18/22 15:19 thru 07/19/22 06:59 Intake Total 9125.301 Output Total 3325 Balance 5800.301 RT Ventilator Mngmt (Last Documented) Ventilator Ordered Settings Respiratory Rate 15 07/19/22 04:38 Fraction of Inspired Oxygen 35 07/19/22 04:38 Ventilator - PT Measurements Respiratory Rate 15 End-Tidal CO2 6 Coding Level of Care Code Critical Care 1st 30-74 mins Diagnoses Altered mental status R40.1 Altered mental status type: stupor DKA (diabetic ketoacidosis) E10.10 Diabetes mellitus complication detail: without coma Diabetes mellitus type: type 1 Acute hyperkalemia E87.5 Leukocytosis D72.829 Leukocytosis type: unspecified JENNY (acute kidney injury) N17.9 (1) Altered mental status Altered mental status type: stupor Qualified Code(s): R40.1 - Stupor (2) DKA (diabetic ketoacidosis) Diabetes mellitus complication detail: without coma Diabetes mellitus type: type 1 Qualified Code(s): E10.10 - Type 1 diabetes mellitus with ketoacidosis without coma (3) Leukocytosis Leukocytosis type: unspecified Qualified Code(s): D72.829 - Elevated white blood cell count, unspecified
[2022-07-19 08:40] LABS: Calcium 7.7 mg/dl (8.5-10.1); Creatinine Clr Calc Pharmacy 60.6 ml/min; Est GFR (African American) 67.5 ml/min; Est GFR (Non-African American) 58.3 ml/min; Potassium 6.6 mmol/L (3.5-5.1)
[2022-07-19] MEDS ORDERED: D5W AND 1/2NSS + 20MEQ KCL 20 MEQ/1,000 ML BAG IV SCH (08:45)
[2022-07-19] MEDS: PENDING D5 1/2NS+40mEq KCL IVF SCH ×2 (08:51→08:52)
[2022-07-19] MEDS: INSULIN ASPART PER UNIT SC SCH ×4 (08:51→20:12)
[2022-07-19] MEDS: D5W AND 1/2NSS 1,000 ML IV SCH ×2 (08:58→15:31)
[2022-07-19] MEDS ORDERED: SODIUM PHOSPHATE 3 MMOL/1 ML 5 ML VIAL IV STA (09:02)
[2022-07-19] MEDS ORDERED: SODIUM PHOSPHATE 20 MMOL in SODIUM CHLORIDE 0.9% 500 ML IV ONE (09:15)
[2022-07-19 10:21] LABS: Magnesium 1.9 mg/dl (1.7-2.4); Phosphorus 8.4 mg/dl (2.5-4.9)
[2022-07-19] MEDS ORDERED: PANTOprazole 40 MG in SYRINGE 0 ML IV SCH (11:00)
[2022-07-19 11:38] LABS: BUN Creatinine Ratio 13.9 (10-20); Calcium 8.2 mg/dl (8.5-10.1); Est GFR (African American) 66.7 ml/min; Est GFR (Non-African American) 57.6 ml/min; Potassium 3.2 mmol/L (3.5-5.1)
[2022-07-19 11:39] LABS: Phosphorus 1.2 mg/dl (2.5-4.9)
--- NOTE | 2022-07-19 12:42 | Electrocardiogram Report ---
Test Reason : Blood Pressure : / mmHG Vent. Rate : 131 BPM Atrial Rate : 131 BPM P-R Int : 144 ms QRS Dur : 102 ms QT Int : 356 ms P-R-T Axes : 000 071 036 degrees QTc Int : 525 ms Sinus tachycardia Poor R wave progression, consider anterior PR vs. lead placement vs. LVH Prolonged QTc Abnormal ECG When compared with ECG of 07-JUN-2022 19:24, Vent. rate has increased BY 67 BPM Confirmed by Mac Ayala ([id number]) on 07/19/2022 12:42:24 PM Referred By: REFERRED SELF Confirmed By:Mac Ayala
[2022-07-19 14:55] LABS: Magnesium 1.8 mg/dl (1.7-2.4); Phosphorus 2.1 mg/dl (2.5-4.9)
[2022-07-19] MEDS ORDERED: LANTUS PER UNIT CHARGE SQ ONE (15:00)
--- NOTE | 2022-07-19 15:13 | Pharmacy Report ---
Pharmacy Glycemic Short Note 2 - Date of Service July 19, 2022 - Glycemic Short BSG Results (Last 24 hours): 07/18/22 07/18/22 07/18/22 15:54 15:56 16:07 Glucose 881 H* POC Glucose > 600 H* POC Glucose (other) > 700 H* 07/18/22 07/18/22 07/18/22 17:16 19:28 19:44 Glucose 634 H* POC Glucose > 600 H* > 600 H* POC Glucose (other) 07/18/22 07/18/22 07/18/22 20:30 21:30 22:41 Glucose POC Glucose 545 H* 484 H* 452 H* POC Glucose (other) 07/18/22 07/18/22 07/19/22 22:56 23:37 00:34 Glucose 446 H* POC Glucose 350 H* 361 H* POC Glucose (other) 07/19/22 07/19/22 07/19/22 01:30 02:38 03:28 Glucose 301 H* POC Glucose 339 H* 267 H POC Glucose (other) 07/19/22 07/19/22 07/19/22 03:32 04:32 05:31 Glucose POC Glucose 264 H 203 H 174 H POC Glucose (other) 07/19/22 07/19/22 07/19/22 06:32 07:30 07:34 Glucose 146 H POC Glucose 163 H 144 H POC Glucose (other) 07/19/22 07/19/22 07/19/22 08:30 08:51 09:29 Glucose POC Glucose 119 H 115 H 125 H POC Glucose (other) 07/19/22 07/19/22 07/19/22 10:17 10:42 11:36 Glucose 192 H POC Glucose 174 H 180 H POC Glucose (other) 07/19/22 07/19/22 13:11 14:16 Glucose POC Glucose 166 H 149 H POC Glucose (other) OUTPATIENT ANTIDIABETIC REGIMEN: * Novolog via Tandem T-slim insulin pump * Basal: 2.5 units x 24 hours * Bolus: ICR 3, CF 10, Target 110 mg/dL * HbA1c = 14.6% (06/07/22) insulin settings taken from last admission 06/07/22 ASSESSMENT: * Patient admitted with DKA, started on insulin infusion protocol. Labs now improving, discussed with RN and mentation improving. * Insulin drip steadily running at 5 units/hr, now down to 4 units/hr - NPO, c ontinues with dextrose fluids * Based upon rate, will add basal of 40 units x 1 to help with drip transition. (4 units x 24 hr ~96 units/day, decreased 50% to account for dextrose fluids) Pending order to notify pharmacy if BSG drops below goal range * Of note, patient stable on 40 units of basal on last admission PLAN FOR INPATIENT GLYCEMIC CONTROL: * Hold outpatient oral diabetes medications * Basal insulin * Lantus 40 units x 1 with insulin drip * Bolus insulin * follow insulin drip calc
--- NOTE | 2022-07-19 15:47 | Hospitalist Progress Note ---
Date of Service July 19, 2022 Assessment & Plan (1) DKA (diabetic ketoacidosis): (2) High anion gap metabolic acidosis: Plan: Patient is 67-year-old female with PMH DM, on insulin pump, HTN, dyslipidemia, hypothyroidism, GERD, obesity, hypothyroidism, anxiety, depression presented to ER for altered mental status. Recent history multiple hospital admissions for DKA secondary to insulin pump issues. Present on admission with tachycardic, tachypneic and found to have BS. pH <7.0, bicarb 6, POC A. Lactate: 3.1, procalcitonin: 0.22, UA: 3+gluc, 4+ketones, 1+protein CT Head: no acute intracranial abnormality CT ABD/PELVIS:No acute abnormalities, no obstruction CXR: No acute infiltrate Received IVF and was started on insulin drip on admission Anion gap 12 today Recent Hba1c 07/18/22 was above 14 Continue insulin drip Further management per legal arbitrator in the ICU (3) Electrolyte abnormality: Plan: Potassium 3.2 and phosphorus 2.1 today Potassium and Phosphate replaced Continue monitor electrolytes (4) Hyponatremia: Plan: Pseudohyponatremia secondary to hyperglycemia Na improved to 137 Continue monitor (5) JENNY (acute kidney injury): Plan: Due to dehydration/ DKA Cr: 1.9 on admission Baseline Cr: ~0.7 received IVF Lisinopril on hold Creatinine 1.01 today Monitor renal functions (6) Leukocytosis: Plan: Mostly reactive WBC 32K on admission Procalcitonin negative UA negative for UTI Blood cx no pending CXR showed no infiltrate CT abd/pelvis showed no acute abnormalities and in particular no evidence of obstruction. Diverticulosis is seen without diverticulitis. She was started on IV cefepime that was discontinued WBC 23 K today (7) Hypothyroidism: Plan: Will resume Levothyroxine in am (8) HTN (hypertension): Plan: Continue to hold Lisinopril due to elevate creatinine on admission Continue monitor BP (9) Mixed hyperlipidemia: Plan: On simvastatin at home (10) GERD (gastroesophageal reflux disease): Plan: On PPI at home DVT Prophylaxis Heparin SQ Full Code Admission and Anticipated Discharge Date Admission Date: July 18, 2022 Subjective Pt was seen and examined for DKA Lying in bed with no acute respiratory distress Pt said that she feels week She continues to be on insulin drip Denies any chest pain, palpitation, dizziness and SOB Review of Systems Review of Systems: General- No acute distress Head- atraumatic Eyes- PERRL, EOMI, ENT- oropharynx clear Neck- supple, no JVD Lungs- clear to auscultation Heart- regular rhythm; no murmur Abdomen- normal bowel sounds, soft, nontender Extremities- no calf tenderness Neuro- alert, oriented x 3; PERRL, EOMI; no facial palsy; no dysarthria Skin- warm & dry Results & Data Results & Data ([facility]) Vital Signs (Past 12 Hours) Vital Signs Temp Pulse Resp BP Pulse Ox O2 Del Method O2 Flow Rate 07/19/22 13:00 37.8 C H 98 H 17 98 07/19/22 13:00 163/65 H 07/19/22 12:00 37.8 C H 96 H 13 100 07/19/22 12:00 150/77 H 07/19/22 11:00 37.7 C H 95 H 20 96 Nasal Cannula 2 07/19/22 11:00 150/59 H 07/19/22 10:00 37.6 C H 101 H 17 97 07/19/22 10:00 154/62 H 07/19/22 09:00 37.6 C H 100 H 12 97 07/19/22 09:00 141/66 H 07/19/22 08:00 37.5 C 102 H 17 97 07/19/22 08:00 152/63 H 07/19/22 07:00 37.4 C 99 H 20 100 07/19/22 07:00 136/61 07/19/22 04:38 99 H 15 100 07/19/22 04:00 37.2 C 100 H 14 100 07/19/22 04:00 123/68 FiO2 07/19/22 13:00 07/19/22 13:00 07/19/22 12:00 07/19/22 12:00 07/19/22 11:00 07/19/22 11:00 07/19/22 10:00 07/19/22 10:00 07/19/22 09:00 07/19/22 09:00 07/19/22 08:00 07/19/22 08:00 07/19/22 07:00 07/19/22 07:00 07/19/22 04:38 35 07/19/22 04:00 07/19/22 04:00 (1) Leukocytosis Leukocytosis type: unspecified Qualified Code(s): D72.829 - Elevated white blood cell count, unspecified
[2022-07-19] MEDS: PENDING ORDER - INSULIN DRIP SCH (17:22)
[2022-07-19] MEDS: INSULIN REGULAR 250 UNITS in SODIUM CHLORIDE 0.9% 247.5 ML IV SCH ×2 (17:22→19:59)
[2022-07-19 19:31] LABS: Calcium 7.8 mg/dl (8.5-10.1); Creatinine Clr Calc Pharmacy 66.6 ml/min; Est GFR (African American) 75.7 ml/min; Est GFR (Non-African American) 65.3 ml/min; Magnesium 1.8 mg/dl (1.7-2.4); Phosphorus 2.2 mg/dl (2.5-4.9); Potassium 3.3 mmol/L (3.5-5.1)
[2022-07-19 19:45] LABS: BUN Creatinine Ratio 9.9 (10-20)
[2022-07-19] MEDS: D5W AND 1/2NSS + 20MEQ KCL 20 MEQ/1,000 ML BAG IV SCH (20:00)
[2022-07-19] MEDS ORDERED: POTASSIUM PHOSPHATE 21 MMOL in SODIUM CHLORIDE 0.9% 500 ML IV ONE (20:00)
[2022-07-20 01:13] LABS: BUN Creatinine Ratio 7.5 (10-20); Calcium 7.9 mg/dl (8.5-10.1); Creatinine Clr Calc Pharmacy 75.7 ml/min; Est GFR (African American) 88.4 ml/min; Est GFR (Non-African American) 76.3 ml/min; Potassium 3.3 mmol/L (3.5-5.1)
[2022-07-20] MEDS: D5W AND 1/2NSS + 20MEQ KCL 20 MEQ/1,000 ML BAG IV SCH (01:38)
[2022-07-20] MEDS: POTASSIUM CHLORIDE / WTR 10 MEQ/100 ML PLCT IV SCH ×4 (03:32→06:39)
[2022-07-20 04:12] LABS: Basophils # (auto) 0.01 K/uL (0-0.2); Basophils % (auto) 0.1 %; Hematocrit (blood only) 34.4 % (34.1-44.9); Hemoglobin 11.9 g/dl (12.0-16.0); Immature Granulocytes # (auto) 0.09 K/uL (0.00-0.02); Immature Granulocytes % (auto) 0.7 %; Lymphocytes # (auto) 1.48 K/uL (1.2-3.4); Mean Corpuscular Hemoglobin 30.9 pg (25.0-34.0); Mean Corpuscular Hgb Conc 34.6 g/dL (32.0-36.0); Mean Corpuscular Volume 89.4 fL (80.0-100.0); Mean Platelet Volume 11.4 fL (9.4-12.3); Monocytes # (auto) 1.86 K/uL (0.24-0.82); Monocytes % (auto) 13.8 %; Neutrophils # (auto) 10.07 K/uL (1.4-6.5); Neutrophils % (auto) 74.4 %; Platelet Count 239 K/uL (130-400); RDW Coefficient of Variation 13.7 % (11.5-14.5); RDW Standard Deviation 44.6 fL (36.4-46.3); Red Blood Count 3.85 M/uL (3.93-5.22); White Blood Count 13.51 K/ul (4.8-10.8)
[2022-07-20 04:50] LABS: BUN Creatinine Ratio 6.7 (10-20); Creatinine Clr Calc Pharmacy 80.8 ml/min; Est GFR (African American) 95.6 ml/min; Est GFR (Non-African American) 82.5 ml/min; Magnesium 2.1 mg/dl (1.7-2.4); Potassium 3.2 mmol/L (3.5-5.1)
[2022-07-20] MEDS ORDERED: POTASSIUM PHOS 3 MMOL/1 ML INFUSION IV STA (05:02)
[2022-07-20] MEDS ORDERED: POTASSIUM PHOSPHATE 30 MMOL in SODIUM CHLORIDE 0.9% 500 ML IV ONE (05:15)
[2022-07-20] MEDS: HEPARIN SOD 5,000 UNIT/0.5 ML VIAL SQ SCH ×3 (06:40→21:25)
[2022-07-20] MEDS: PENDING ORDER - INSULIN DRIP SCH ×2 (07:36→07:37)
[2022-07-20] MEDS: INSULIN ASPART PER UNIT SC SCH ×4 (07:37→22:53)
--- NOTE | 2022-07-20 08:39 | Critical Care Progress Note ---
Date of Service July 20, 2022 Assessment & Plan (1) Altered mental status: (2) DKA (diabetic ketoacidosis): (3) Acute hyperkalemia: (4) Leukocytosis: (5) JENNY (acute kidney injury): Plan Impression: 67-year-old female with diabetes presenting with severe DKA, hyper kalemia, acute renal failure, and severe metabolic acidosis with encephalopathy. She has been initiated on bicarb infusion with improvement in her metabolic abnormalities. 24-hour events: Insulin drip still on but anion gap is closed. The patient's altered mental status is markedly better. Recommendations: 1. Neurologic: Encephalopathy clearing. Continue to observe. Would hold trazodone and Ambien. 2. Cardiovascular: The patient is hemodynamically stable currently. Can restart her oral antihypertensives. 3. Respiratory: Kussmaul breathing resolved. 4. Endocrine: Severe DKA. Now resolved. Discontinue insulin drip and cover with long-acting insulin as well as sliding scale insulin. Can restart oral hypoglycemics as tolerated over the next 24 to 48 hours. 5. Renal: Acute kidney injury: Resolved. Hypokalemia and hypophosphatemia. We will discontinue IV replacement and transition to oral replacement and follow. Discontinue Rahman catheter 6. ID: Leukocytosis likely reactive and decreasing. Continue to trend. No indication for antimicrobials currently. 7. GI: Advance diet to carb controlled 8. Heme-onc: No current issues. DVT prophylaxis. Patient is stable for transfer out of the intensive care unit at this point time. Critical care services will sign off. Feel free to contact us if we can be of additional assistance Discussed with pharmacy, critical care nurse at bedside and patient. Admission and Anticipated Discharge Date Admission Date: July 18, 2022 Subjective Patient seen and examined. She is much more awake alert and conversant today. She denies any abdominal pain. No nausea or vomiting. She been hemodynamically stable. Review of Systems Review of Systems: All systems reviewed & are unremarkable except as noted in Subjective Physical Exam Constitutional: WD/WN, vitals as above Neck: trachea midline, no thyromegaly Respiratory: normal respiratory effort, lungs clear to auscultation Cardiovascular: RRR, no murmur, no edema Gastrointestinal (Abdomen): normal bowel sounds, soft, nontender, no hepatosplenomegaly Musculoskeletal: Extremities: extremities normal to inspection Skin: no rashes, warm and dry Lymphatic: no cervical lymphadenopathy Results & Data Results & Data ([facility]) Vital Signs (Past 12 Hours) Vital Signs Temp Pulse Resp BP Pulse Ox FiO2 07/20/22 07:00 37.4 C 89 14 96 07/20/22 05:04 37.3 C 88 15 96 07/20/22 05:04 142/76 H 07/20/22 04:00 37.3 C 94 H 22 159/82 H 97 07/20/22 03:02 37.3 C 96 H 22 143/67 H 93 07/20/22 02:00 37.3 C 89 12 133/73 96 07/20/22 01:00 EST 37.2 C 88 17 99 07/20/22 01:00 EST 173/77 H 07/20/22 00:00 37.3 C 97 H 0 L 97 07/20/22 00:00 157/94 H 07/20/22 00:00 91 H 07/19/22 23:00 37.3 C 93 H 0 L 97 07/19/22 23:00 177/81 H 07/19/22 22:00 37.3 C 93 H 19 94 07/19/22 22:00 158/77 H 07/19/22 22:05 96 H 21 98 35 Critical Care Results & Data Vital Signs (Past 12 Hours) Vital Signs Temp Pulse Resp BP Pulse Ox FiO2 07/20/22 07:00 37.4 C 89 14 96 07/20/22 05:04 37.3 C 88 15 96 07/20/22 05:04 142/76 H 07/20/22 04:00 37.3 C 94 H 22 159/82 H 97 07/20/22 03:02 37.3 C 96 H 22 143/67 H 93 07/20/22 02:00 37.3 C 89 12 133/73 96 07/20/22 01:00 EST 37.2 C 88 17 99 07/20/22 01:00 EST 173/77 H 07/20/22 00:00 37.3 C 97 H 0 L 97 07/20/22 00:00 157/94 H 07/20/22 00:00 91 H 07/19/22 23:00 37.3 C 93 H 0 L 97 07/19/22 23:00 177/81 H 07/19/22 22:00 37.3 C 93 H 19 94 07/19/22 22:00 158/77 H 07/19/22 22:05 96 H 21 98 35 Lab & Micro Results (Past 24 Hours) RBC 3.85 M/uL (3.93-5.22) L 07/20/22 WBC 13.51 K/ul (4.8-10.8) H 07/20/22 Hgb 11.9 g/dl (12.0-16.0) L 07/20/22 Hct 34.4 % (34.1-44.9) 07/20/22 MCV 89.4 fL (80.0-100.0) 07/20/22 MCH 30.9 pg (25.0-34.0) 07/20/22 MCHC 34.6 g/dL (32.0-36.0) 07/20/22 RDW Standard Deviation 44.6 fL (36.4-46.3) 07/20/22 RDW Coefficient of Variation 13.7 % (11.5-14.5) 07/20/22 Plt Count 239 K/uL (130-400) 07/20/22 MPV 11.4 fL (9.4-12.3) 07/20/22 Neutrophils (%) (Auto) 74.4 % 07/20/22 Lymphocytes (%) (Auto) 11.0 % 07/20/22 Monocytes # (Auto) 1.86 K/uL (0.24-0.82) H 07/20/22 Eosinophils # (Auto) 0.00 K/uL (0-0.50) 07/20/22 Immature Granulocyte % (Auto) 0.7 % 07/20/22 Neutrophils # (Auto) 10.07 K/uL (1.4-6.5) H 07/20/22 Lymphocytes # (Auto) 1.48 K/uL (1.2-3.4) 07/20/22 Monocytes # (Auto) 1.86 K/uL (0.24-0.82) H 07/20/22 Eosinophils # (Auto) 0.00 K/uL (0-0.50) 07/20/22 Basophils # (Auto) 0.01 K/uL (0-0.2) 07/20/22 Immature Granulocyte # (Auto) 0.09 K/uL (0.00-0.02) H 07/20 Na 140 mmol/L (136-145) 07/20/22 K 3.2 mmol/L (3.5-5.1) L 07/20/22 Cl 111 mmol/L (98-107) H 07/20/22 CO2 21 mmol/L (21-32) 07/20/22 Anion Gap 8 (3-11) 07/20/22 BUN 5 mg/dl (6-23) L 07/20/22 Creatinine 0.75 mg/dl (0.6-1.2) 07/20/22 Estimated GFR ( Amer) 95.6 ml/min 07/20/22 Estimated GFR (Non-Af Amer) 82.5 ml/min 07/20/22 BUN/Creatinine Ratio 6.7 (10-20) L 07/20/22 Glu 164 mg/dl (70-99(Fasting)) H 07/20/22 Ca 8.0 mg/dl (8.5-10.1) L 07/20/22 Phosphorus Level 2.0 mg/dl (2.5-4.9) L 07/20/22 Mg 2.1 mg/dl (1.7-2.4) 07/20/22 03:58 Calcium Level 8.0 mg/dl (8.5-10.1) L 07/20/22 03:58 Microbiology 07/18/22 16:09 Aerobic Blood Culture - Preliminary Blood No growth in Aerobic bottle after 24 hours. Anaerobic Blood Culture - Final 07/18/22 16:07 Aerobic Blood Culture - Preliminary Blood No growth in Aerobic bottle after 24 hours. Anaerobic Blood Culture - Preliminary No growth in Anaerobic bottle after 24 hours. I & O Totals 24 Hours 07/19/22 07/20/22 07/21/22 07:59 06:59 06:59 Intake Total 100 / 100 Output Total Balance 100 / 100 Cumulative 07/18/22 15:19 thru 07/20/22 07:40 Intake Total 64843.9827 Output Total 7100 Balance 9120.9827 RT Ventilator Mngmt (Last Documented) Ventilator Ordered Settings Respiratory Rate 14 07/20/22 07:00 Fraction of Inspired Oxygen 35 07/19/22 22:05 Ventilator - PT Measurements Respiratory Rate 14 End-Tidal CO2 6 Coding Level of Care Code 93317 Subseq Hosp Care Lvl 3 Diagnoses Altered mental status R40.1 Altered mental status type: stupor DKA (diabetic ketoacidosis) E10.10 Diabetes mellitus complication detail: without coma Diabetes mellitus type: type 1 Acute hyperkalemia E87.5 Leukocytosis D72.829 Leukocytosis type: unspecified JENNY (acute kidney injury) N17.9 (1) Altered mental status Altered mental status type: stupor Qualified Code(s): R40.1 - Stupor (2) DKA (diabetic ketoacidosis) Diabetes mellitus complication detail: without coma Diabetes mellitus type: type 1 Qualified Code(s): E10.10 - Type 1 diabetes mellitus with ketoacidosis without coma (3) Leukocytosis Leukocytosis type: unspecified Qualified Code(s): D72.829 - Elevated white blood cell count, unspecified
[2022-07-20] MEDS ORDERED: LANTUS PER UNIT CHARGE SQ ONE (08:45)
[2022-07-20] MEDS: POTASSIUM CHLORIDE CRTAB 20 MEQ TABCR PO SCH ×3 (09:09→21:25)
[2022-07-20] MEDS: POT PHOSPHATE MONOBASIC W/ SOD TAB PO SCH ×4 (09:09→21:25)
[2022-07-20] MEDS: FLUCONAZOLE 100 MG TAB PO SCH (09:50)
--- NOTE | 2022-07-20 10:25 | Pharmacy Report ---
Pharmacy Glycemic Short Note 2 - Date of Service July 20, 2022 - Glycemic Short BSG Results (Last 24 hours): 07/19/22 07/19/22 07/19/22 10:42 11:36 13:11 Glucose 192 H POC Glucose 180 H 166 H 07/19/22 07/19/22 07/19/22 14:16 15:18 17:17 Glucose POC Glucose 149 H 147 H 155 H 07/19/22 07/19/22 07/19/22 18:22 18:27 19:32 Glucose 188 H POC Glucose 171 H 183 H 07/19/22 07/19/22 07/20/22 21:31 23:29 01:32 EST Glucose POC Glucose 189 H 195 H 197 H 07/20/22 07/20/22 07/20/22 01:39 EST 02:40 03:58 Glucose 205 H 164 H POC Glucose 165 H 07/20/22 07/20/22 07/20/22 04:34 05:34 06:36 Glucose POC Glucose 134 H 122 H 137 H 07/20/22 08:32 Glucose POC Glucose 117 H OUTPATIENT ANTIDIABETIC REGIMEN: * Novolog via Tandem T-slim insulin pump * Basal: 2.5 units x 24 hours * Bolus: ICR 3, CF 10, Target 110 mg/dL * HbA1c = 14.6% (06/07/22) insulin settings taken from last admission 06/07/22 ASSESSMENT: 07-20 * Insulin drip continued overnight, despite giving Lantus yesterday afternoon * Insulin drip rates ~2 units/hr this morning. Discussed with provider and d/c insulin drip and plan to d/c IV fluids with dextrose. Anticipate BSGs to improve with d/c of IVFs * Will order repeat Lantus 40 units x 1 now. Talked with RN and patient still a little drowsy this morning, no breakfast. Per RN, would not feel comfortable if patient managed her own insulin pump. Will order home novolog starting with lunch time. Will order patient's home settings. 11 * Patient admitted with DKA, started on insulin infusion protocol. Labs now improving, discussed with RN and mentation improving. * Insulin drip steadily running at 5 units/hr, now down to 4 units/hr - NPO, continues with dextrose fluids * Based upon rate, will add basal of 40 units x 1 to help with drip transition. (4 units x 24 hr ~96 units/day, decreased 50% to account for dextrose fluids) Pending order to notify pharmacy if BSG drops below goal range * Of note, patient stable on 40 units of basal on last admission PLAN FOR INPATIENT GLYCEMIC CONTROL: * Hold outpatient oral diabetes medications * Basal insulin * Lantus 40 units x 1 * Bolus insulin * 110-140 / CF 10 / CR 3
--- NOTE | 2022-07-20 12:12 | Hospitalist Progress Note ---
Date of Service July 20, 2022 Assessment & Plan (1) DKA (diabetic ketoacidosis): (2) High anion gap metabolic acidosis: Plan: Uncontrolled Diabetes type 2 Patient is 67-year-old female with PMH DM, on insulin pump, HTN, dyslipidemia, hypothyroidism, GERD, obesity, hypothyroidism, anxiety, depression presented to ER for altered mental status. Recent history multiple hospital admissions for DKA secondary to insulin pump issues. Present on admission with tachycardic, tachypneic and found to have BS. pH <7.0, bicarb 6, POC A. Lactate: 3.1, procalcitonin: 0.22, UA: 3+gluc, 4+ketones, 1+protein CT Head: no acute intracranial abnormality CT ABD/PELVIS:No acute abnormalities, no obstruction CXR: No acute infiltrate Received IVF and was started on insulin drip on admission Anion gap closed at 8 today Recent Hba1c 07/18/22 was above 14 insulin drip discontinued and she was transition to [facility] Pharmacy on board for glycemic management As per clerk typist patient can be downgrade Continue monitor BS (3) Electrolyte abnormality: Plan: Potassium 3.2 and phosphorus 2.0 today Potassium and Phosphate replaced Continue monitor electrolytes (4) Hyponatremia: Plan: Pseudohyponatremia secondary to hyperglycemia Na improved to 140 Continue monitor resolved (5) JENNY (acute kidney injury): Plan: Due to dehydration/ DKA Cr: 1.9 on admission Baseline Cr: ~0.7 received IVF Lisinopril on hold Creatinine 0.75 today Monitor renal functions Resolved (6) Leukocytosis: Plan: Mostly reactive WBC 32K on admission Procalcitonin negative UA negative for UTI Blood cx no pending CXR showed no infiltrate CT abd/pelvis showed no acute abnormalities and in particular no evidence of obstruction. Diverticulosis is seen without diverticulitis. She was started on IV cefepime that was discontinued WBC 13.5 K today (7) Hypothyroidism: Plan: Transition to Po Levothyroxine (8) HTN (hypertension): Plan: Continue to hold Lisinopril due to elevate creatinine on admission Continue monitor BP (9) Mixed hyperlipidemia: Plan: On simvastatin at home (10) GERD (gastroesophageal reflux disease): Plan: On PPI at home DVT Prophylaxis Heparin SQ Full Code Admission and Anticipated Discharge Date Admission Date: July 18, 2022 Subjective Pt was seen and examined for follow up of DKA Lying in bed with no acute respiratory distress Pt said that she feels alot better Insulin drip discontinued and transition to subq insulin Denies any chest pain, palpitation, dizziness and SOB Review of Systems Review of Systems: All systems reviewed & are unremarkable except as noted in Subjective Physical Exam Physical Exam: General- No acute distress Head- atraumatic Eyes- PERRL, EOMI, ENT- oropharynx clear Neck- supple, no JVD Lungs- clear to auscultation Heart- regular rhythm; no murmur Abdomen- normal bowel sounds, soft, nontender Extremities- no calf tenderness Neuro- alert, oriented x 3; PERRL, EOMI; no facial palsy; no dysarthria Skin- warm & dry Results & Data Results & Data ([facility]) Vital Signs (Past 12 Hours) Vital Signs Temp Pulse Resp BP Pulse Ox 07/20/22 07:00 37.4 C 89 14 96 07/20/22 05:04 37.3 C 88 15 96 07/20/22 05:04 142/76 H 07/20/22 04:00 37.3 C 94 H 22 159/82 H 97 07/20/22 03:02 37.3 C 96 H 22 143/67 H 93 07/20/22 02:00 37.3 C 89 12 133/73 96 07/20/22 01:00 EST 37.2 C 88 17 99 07/20/22 01:00 EST 173/77 H (1) Leukocytosis Leukocytosis type: unspecified Qualified Code(s): D72.829 - Elevated white blood cell count, unspecified
[2022-07-20] MEDS: traZODone HCL 50 MG TAB PO SCH (21:25)
[2022-07-21] MEDS ORDERED: INSULIN ASPART PER UNIT SC SCH
[2022-07-21] MEDS ORDERED: PROMETHAZINE HCL 12.5 MG in SODIUM CHLORIDE 0.9% 50 ML IV PRN (03:43)
[2022-07-21] MEDS ORDERED: LOPERAMIDE HCL 2 MG CAP PO PRN ×2 (05:43→17:02)
[2022-07-21] MEDS: HEPARIN SOD 5,000 UNIT/0.5 ML VIAL SQ SCH ×3 (06:42→21:01)
[2022-07-21] MEDS: POT PHOSPHATE MONOBASIC W/ SOD TAB PO SCH ×4 (07:29→21:01)
[2022-07-21] MEDS: POTASSIUM CHLORIDE CRTAB 20 MEQ TABCR PO SCH ×3 (07:29→21:03)
[2022-07-21] MEDS: PANTOprazole 40 MG TAB PO SCH (07:29)
[2022-07-21] MEDS: FLUoxetine HCL 20 MG CAP PO SCH (07:30)
[2022-07-21] MEDS: SIMVASTATIN 10 MG TAB PO SCH (07:30)
[2022-07-21] MEDS: ASPIRIN 81 MG ECTAB PO SCH (07:30)
[2022-07-21] MEDS: lisinopril 5 MG TAB PO SCH (07:30)
[2022-07-21] MEDS: FLUCONAZOLE 100 MG TAB PO SCH (07:30)
[2022-07-21] MEDS: LEVOTHYROXINE SODIUM 125 MCG TABLET PO SCH (07:30)
[2022-07-21] MEDS: INSULIN ASPART PER UNIT SC SCH ×4 (08:27→21:03)
[2022-07-21] MEDS: LANTUS PER UNIT CHARGE SQ SCH (08:28)
--- NOTE | 2022-07-21 08:37 | Pharmacy Report ---
Pharmacy Glycemic Short Note 2 - Date of Service July 21, 2022 - Glycemic Short BSG Results (Last 24 hours): 07/20/22 07/20/22 07/20/22 08:32 11:47 16:40 POC Glucose 117 H 258 H 74 07/20/22 07/20/22 07/20/22 20:42 20:47 21:13 POC Glucose 55 L* 55 L* 84 07/21/22 07/21/22 07/21/22 00:27 00:45 02:59 POC Glucose 40 L* 96 93 07/21/22 07/21/22 03:40 07:44 POC Glucose 126 H 150 H OUTPATIENT ANTIDIABETIC REGIMEN: * Novolog via Tandem T-slim insulin pump * Basal: 2.5 units x 24 hours * Bolus: ICR 3, CF 10, Target 110 mg/dL * HbA1c = 14.6% (06/07/22) insulin settings taken from last admission 06/07/22 ASSESSMENT: 11 * Patient received ~100 units of SQ insulin yesterday, of which 40 units were basal (~20% decrease in basal from home settings with pump) * Had d/c insulin drip yesterday morning and started SQ insulin at lunchtime. Used home CF/CR that patient uses at home * BSGs trending down significantly with dinner - patient went low at HS, given juice and low again at midnight, given juice again. Events likely related to too much correctional insulin * Fasting BSG this AM ~150 mg/dL - plan to scale back slightly on basal as unknown if contributing to overnight low. Will trial stress of 3 for novolog for now. 11-6 * Insulin drip continued overnight, despite giving Lantus yesterday afternoon * Insulin drip rates ~2 units/hr this morning. Discussed with provider and d/c insulin drip and plan to d/c IV fluids with dextrose. Anticipate BSGs to improve with d/c of IVFs * Will order repeat Lantus 40 units x 1 now. Talked with RN and patient still a little drowsy this morning, no breakfast. Per RN, would not feel comfortable if patient managed her own insulin pump. Will order home novolog starting with lunch time. Will order patient's home settings. 11-5 * Patient admitted with DKA, started on insulin infusion protocol. Labs now improving, discussed with RN and mentation improving. * Insulin drip steadily running at 5 units/hr, now down to 4 units/hr - NPO, continues with dextrose fluids * Based upon rate, will add basal of 40 units x 1 to help with drip transition. (4 units x 24 hr ~96 units/day, decreased 50% to account for dextrose fluids) Pending order to notify pharmacy if BSG drops below goal range * Of note, patient stable on 40 units of basal on last admission PLAN FOR INPATIENT GLYCEMIC CONTROL: * Hold outpatient oral diabetes medications * Basal insulin * Lantus 35 units daily * Bolus insulin * 110-140 / CF 15 / CR 6
[2022-07-21 09:38] LABS: Hematocrit (blood only) 38.3 % (34.1-44.9); Mean Corpuscular Hemoglobin 30.4 pg (25.0-34.0); Mean Corpuscular Hgb Conc 33.9 g/dL (32.0-36.0); Mean Corpuscular Volume 89.7 fL (80.0-100.0); RDW Coefficient of Variation 13.5 % (11.5-14.5); RDW Standard Deviation 44.3 fL (36.4-46.3); Red Blood Count 4.27 M/uL (3.93-5.22); White Blood Count 12.72 K/ul (4.8-10.8)
[2022-07-21 09:39] LABS: Mean Platelet Volume 12.4 fL (9.4-12.3); Platelet Count 178 K/uL (130-400)
[2022-07-21 09:43] LABS: Calcium 8.4 mg/dl (8.5-10.1); Creatinine Clr Calc Pharmacy 103.6 ml/min; Est GFR (African American) 109.3 ml/min; Est GFR (Non-African American) 94.3 ml/min; Magnesium 1.8 mg/dl (1.7-2.4); Phosphorus 2.3 mg/dl (2.5-4.9); Potassium 3.5 mmol/L (3.5-5.1)
[2022-07-21 10:24] LABS: Basophils # (auto) 0.03 K/uL (0-0.2); Basophils % (auto) 0.2 %; Echinocytes 2+; Eosinophils # (auto) 0.03 K/uL (0-0.50); Eosinophils % (auto) 0.2 %; Immature Granulocytes # (auto) 0.06 K/uL (0.00-0.02); Immature Granulocytes % (auto) 0.5 %; Lymphocytes # (auto) 3.42 K/uL (1.2-3.4); Lymphocytes % (auto) 26.9 %; Monocytes # (auto) 1.18 K/uL (0.24-0.82); Monocytes % (auto) 9.3 %; Neutrophils % (auto) 62.9 %
[2022-07-21] MEDS ORDERED: POTASSIUM PHOS 3 MMOL/1 ML INFUSION IV STA (16:58)
--- NOTE | 2022-07-21 16:58 | Hospitalist Progress Note ---
Date of Service July 21, 2022 Assessment & Plan (1) DKA (diabetic ketoacidosis): (2) High anion gap metabolic acidosis: Plan: Uncontrolled Diabetes type 2 Patient is 67-year-old female with PMH DM, on insulin pump, HTN, dyslipidemia, hypothyroidism, GERD, obesity, hypothyroidism, anxiety, depression presented to ER for altered mental status. Recent history multiple hospital admissions for DKA secondary to insulin pump issues. Present on admission with tachycardic, tachypneic and found to have BS. pH <7.0, bicarb 6, POC A. Lactate: 3.1, procalcitonin: 0.22, UA: 3+gluc, 4+ketones, 1+protein CT Head: no acute intracranial abnormality CT ABD/PELVIS:No acute abnormalities, no obstruction CXR: No acute infiltrate Received IVF and was started on insulin drip on admission Anion gap closed at 8 today Recent Hba1c 07/18/22 was above 14 insulin drip discontinued and she was transition to [facility] Pharmacy on board for glycemic management As per manager environmental health and safety patient can be downgrade Continue monitor BS (3) Electrolyte abnormality: Plan: Potassium 3.5 and phosphorus 2.3 today Phosphate replaced Continue monitor electrolytes (4) Hyponatremia: Plan: Pseudohyponatremia secondary to hyperglycemia Na improved to 138 Continue monitor resolved (5) JENNY (acute kidney injury): Plan: Due to dehydration/ DKA Cr: 1.9 on admission Baseline Cr: ~0.7 received IVF Lisinopril on hold Creatinine 0.75 today Monitor renal functions Resolved (6) Leukocytosis: Plan: Mostly reactive WBC 32K on admission Procalcitonin negative UA negative for UTI Blood cx no growth CXR showed no infiltrate CT abd/pelvis showed no acute abnormalities and in particular no evidence of obstruction. Diverticulosis is seen without diverticulitis. She was started on IV cefepime that was discontinued WBC 12 K today (7) Hypothyroidism: Plan: Transition to Po Levothyroxine (8) HTN (hypertension): Plan: Continue to hold Lisinopril due to elevate creatinine on admission Continue monitor BP Diarrhea Monitor electrolytes Electrolytes replaced Will add loperamide (9) Mixed hyperlipidemia: Plan: On simvastatin at home (10) GERD (gastroesophageal reflux disease): Plan: On PPI at home DVT Prophylaxis Heparin SQ Full Code Admission and Anticipated Discharge Date Admission Date: July 18, 2022 Subjective Pt was seen and examined for follow up of DKA Sitting in bed with no acute distress Pt said that she feels alot better Pt said that she has multiple episodes of watery diarrhea logistics planning manager discussed with patient about son to bring her insulin pump Denies any chest pain, palpitation, dizziness and SOB Review of Systems Review of Systems: All systems reviewed & are unremarkable except as noted in Subjective Physical Exam Physical Exam: General- No acute distress Head- atraumatic Eyes- PERRL, EOMI, ENT- oropharynx clear Neck- supple, no JVD Lungs- clear to auscultation Heart- regular rhythm; no murmur Abdomen- normal bowel sounds, soft, nontender Extremities- no calf tenderness Neuro- alert, oriented x 3; PERRL, EOMI; no facial palsy; no dysarthria Skin- warm & dry Results & Data Results & Data ([facility]) Vital Signs (Past 12 Hours) Vital Signs Temp Pulse Pulse Resp BP Pulse Ox O2 Del Method 07/21/22 16:00 73 07/21/22 15:47 37.1 C 76 18 135/79 97 Room Air 07/21/22 12:00 36.8 C 76 18 143/81 H 96 Room Air 07/21/22 08:11 36.8 C 71 18 149/72 H 95 Room Air (1) Leukocytosis Leukocytosis type: unspecified Qualified Code(s): D72.829 - Elevated white blood cell count, unspecified
[2022-07-21] MEDS ORDERED: POTASSIUM PHOSPHATE 9 MMOL in SODIUM CHLORIDE 0.9% 250 ML IV ONE (17:30)
[2022-07-21] MEDS: traZODone HCL 50 MG TAB PO SCH (21:03)
[2022-07-22] MEDS ORDERED: INSULIN ASPART PER UNIT SC SCH
[2022-07-22] MEDS: HEPARIN SOD 5,000 UNIT/0.5 ML VIAL SQ SCH ×3 (05:37→20:27)
[2022-07-22 06:24] LABS: Basophils # (auto) 0.06 K/uL (0-0.2); Basophils % (auto) 0.6 %; Eosinophils # (auto) 0.13 K/uL (0-0.50); Eosinophils % (auto) 1.2 %; Hematocrit (blood only) 34.5 % (34.1-44.9); Hemoglobin 11.7 g/dl (12.0-16.0); Immature Granulocytes # (auto) 0.04 K/uL (0.00-0.02); Immature Granulocytes % (auto) 0.4 %; Lymphocytes % (auto) 32.9 %; Mean Corpuscular Hemoglobin 30.9 pg (25.0-34.0); Mean Corpuscular Hgb Conc 33.9 g/dL (32.0-36.0); Mean Platelet Volume 11.6 fL (9.4-12.3); Monocytes # (auto) 1.04 K/uL (0.24-0.82); Monocytes % (auto) 9.8 %; Neutrophils # (auto) 5.87 K/uL (1.4-6.5); Neutrophils % (auto) 55.1 %; Platelet Count 204 K/uL (130-400); RDW Standard Deviation 46.6 fL (36.4-46.3); Red Blood Count 3.79 M/uL (3.93-5.22); White Blood Count 10.64 K/ul (4.8-10.8)
[2022-07-22 06:54] LABS: BUN Creatinine Ratio 16.7 (10-20); Calcium 8.1 mg/dl (8.5-10.1); Creatinine Clr Calc Pharmacy 113.9 ml/min; Est GFR (African American) 113.2 ml/min; Est GFR (Non-African American) 97.6 ml/min; Magnesium 1.7 mg/dl (1.7-2.4); Potassium 3.6 mmol/L (3.5-5.1)
[2022-07-22] MEDS: ASPIRIN 81 MG ECTAB PO SCH (08:32)
[2022-07-22] MEDS: FLUCONAZOLE 100 MG TAB PO SCH (08:33)
[2022-07-22] MEDS: LEVOTHYROXINE SODIUM 125 MCG TABLET PO SCH (08:34)
[2022-07-22] MEDS: FLUoxetine HCL 20 MG CAP PO SCH (08:34)
[2022-07-22] MEDS: lisinopril 5 MG TAB PO SCH (08:35)
[2022-07-22] MEDS: PANTOprazole 40 MG TAB PO SCH (08:36)
[2022-07-22] MEDS: SIMVASTATIN 10 MG TAB PO SCH (08:37)
[2022-07-22] MEDS: INSULIN ASPART PER UNIT SC SCH ×2 (08:47→13:10)
[2022-07-22] MEDS: LANTUS PER UNIT CHARGE SQ SCH (08:48)
[2022-07-22] MEDS ORDERED: INSULIN ASPART 100 UNITS/ML VIAL SC PRN (14:00)
--- NOTE | 2022-07-22 14:16 | Hospitalist Progress Note ---
Date of Service July 22, 2022 Assessment & Plan (1) DKA (diabetic ketoacidosis): (2) High anion gap metabolic acidosis: Plan: Uncontrolled Diabetes type 2 Patient is 67-year-old female with PMH DM, on insulin pump, HTN, dyslipidemia, hypothyroidism, GERD, obesity, hypothyroidism, anxiety, depression presented to ER for altered mental status. Recent history multiple hospital admissions for DKA secondary to insulin pump issues. Present on admission with tachycardic, tachypneic and found to have BS. pH <7.0, bicarb 6, POC A. Lactate: 3.1, procalcitonin: 0.22, UA: 3+gluc, 4+ketones, 1+protein CT Head: no acute intracranial abnormality CT ABD/PELVIS:No acute abnormalities, no obstruction CXR: No acute infiltrate Received IVF and was started on insulin drip on admission Anion gap closed at 8 today Recent Hba1c 07/18/22 was above 14 insulin drip discontinued and she was transition to [facility] Pharmacy on board for glycemic management life educator changed the pump, but there was no data shows up for the past month life educator will try to call the pump company to find out why no data was found Pt would like to stay for the night to make sure the pump is working properly Continue monitor BS (3) Electrolyte abnormality: Plan: Potassium 3.6 Phosphate replaced Continue monitor electrolytes (4) Hyponatremia: Plan: Pseudohyponatremia secondary to hyperglycemia Na improved to 139 Continue monitor resolved (5) JENNY (acute kidney injury): Plan: Due to dehydration/ DKA Cr: 1.9 on admission Baseline Cr: ~0.7 received IVF Lisinopril on hold Creatinine 0.5 today Monitor renal functions Resolved (6) Leukocytosis: Plan: Mostly reactive WBC 32K on admission Procalcitonin negative UA negative for UTI Blood cx no growth CXR showed no infiltrate CT abd/pelvis showed no acute abnormalities and in particular no evidence of obstruction. Diverticulosis is seen without diverticulitis. She was started on IV cefepime that was discontinued WBC 11K today (7) Hypothyroidism: Plan: Transition to Po Levothyroxine (8) HTN (hypertension): Plan: Continue to hold Lisinopril due to elevate creatinine on admission Continue monitor BP Diarrhea Monitor electrolytes Continue monitor electrolytes Stools for Cdiff negative (9) Mixed hyperlipidemia: Plan: On simvastatin at home (10) GERD (gastroesophageal reflux disease): Plan: On PPI at home DVT Prophylaxis Heparin SQ Full Code Disposition Plan to discharge tomorrow with Admission and Anticipated Discharge Date Admission Date: July 18, 2022 Subjective Pt was seen and examined for follow up of DKA Lying in bed with no acute distress Pt said that she feels alot better life educator changed the pump, but there was no data shows up for the past month life educator will try to call the pump company to find out why no data was found Pt would like to stay for the night to make sure the pump is working properly Denies any chest pain, palpitation, dizziness and SOB Review of Systems Review of Systems: All systems reviewed & are unremarkable except as noted in Subjective Physical Exam Physical Exam: General- No acute distress Head- atraumatic Eyes- PERRL, EOMI, ENT- oropharynx clear Neck- supple, no JVD Lungs- clear to auscultation Heart- regular rhythm; no murmur Abdomen- normal bowel sounds, soft, nontender Extremities- no calf tenderness Neuro- alert, oriented x 3; PERRL, EOMI; no facial palsy; no dysarthria Skin- warm & dry Results & Data Results & Data ([facility]) Vital Signs (Past 12 Hours) Vital Signs Temp Pulse Pulse Resp BP Pulse Ox O2 Del Method 07/22/22 06:11 84 07/22/22 11:51 36.9 C 77 17 140/70 96 Room Air 07/22/22 09:00 36.9 C 95 H 23 96 07/22/22 07:50 158/70 H 07/22/22 07:50 158/70 H Room Air 07/22/22 03:27 36.8 C 74 16 117/72 95 Room Air (1) Leukocytosis Leukocytosis type: unspecified Qualified Code(s): D72.829 - Elevated white blood cell count, unspecified
--- NOTE | 2022-07-22 14:37 | Pharmacy Report ---
Pharmacy Glycemic Short Note 2 - Date of Service July 22, 2022 - Glycemic Short BSG Results (Last 24 hours): 07/21/22 07/21/22 07/21/22 16:47 20:05 23:54 Glucose POC Glucose 111 H 159 H 103 H 07/22/22 07/22/22 07/22/22 05:41 07:39 12:36 Glucose 132 H POC Glucose 158 H 201 H OUTPATIENT ANTIDIABETIC REGIMEN: * Novolog via [employer] T-slim insulin pump * Basal: 2.5 units x 24 hours * Bolus: ICR 3, CF 10, Target 110 mg/dL * HbA1c = 14.6% (06/07/22) insulin settings taken from last admission 06/07/22 ASSESSMENT: 07/22 * Patient received 35 units of basal yesterday, fasting 158 mg/dL slightly above goal * Discussed with public health educator, patient will restart her pump this afternoon with a 20% temp basal (in addition to the 35 units of lantus she received this morning). * We should be contacted with if issues arise with insulin pump use and need to be converted back to SQ basal/bolus 07-21 * Patient received ~100 units of SQ insulin yesterday, of which 40 units were basal (~20% decrease in basal from home settings with pump) * Had d/c insulin drip yesterday morning and started SQ insulin at lunchtime. Used home CF/CR that patient uses at home * BSGs trending down significantly with dinner - patient went low at HS, given juice and low again at midnight, given juice again. Events likely related to too much correctional insulin * Fasting BSG this AM ~150 mg/dL - plan to scale back slightly on basal as unknown if contributing to overnight low. Will trial stress of 3 for novolog for now. 07-20 * Insulin drip continued overnight, despite giving Lantus yesterday afternoon * Insulin drip rates ~2 units/hr this morning. Discussed with provider and d/c insulin drip and plan to d/c IV fluids with dextrose. Anticipate BSGs to improve with d/c of IVFs * Will order repeat Lantus 40 units x 1 now. Talked with RN and patient still a little drowsy this morning, no breakfast. Per RN, would not feel comfortable if patient managed her own insulin pump. Will order home novolog starting with lunch time. Will order patient's home settings. 07-19 * Patient admitted with DKA, started on insulin infusion protocol. Labs now improving, discussed with RN and mentation improving. * Insulin drip steadily running at 5 units/hr, now down to 4 units/hr - NPO, continues with dextrose fluids * Based upon rate, will add basal of 40 units x 1 to help with drip transition. (4 units x 24 hr ~96 units/day, decreased 50% to account for dextrose fluids) Pending order to notify pharmacy if BSG drops below goal range * Of note, patient stable on 40 units of basal on last admission PLAN FOR INPATIENT GLYCEMIC CONTROL: * Hold outpatient oral diabetes medications * Basal insulin * Lantus 35 unitsx1; restart pump at 20% temp basal until tomorrow AM * Bolus insulin * 110-140 / CF 15 / CR 5 ----> will resume home doses once pump restarts to assess pump usage
[2022-07-22] MEDS: INSULIN, Rapid-Acting PUMP SCH ×2 (16:38→20:24)
[2022-07-22] MEDS: traZODone HCL 50 MG TAB PO SCH (20:26)
[2022-07-23] MEDS: HEPARIN SOD 5,000 UNIT/0.5 ML VIAL SQ SCH ×3 (05:06→21:00)
[2022-07-23] MEDS: FLUoxetine HCL 20 MG CAP PO SCH (08:33)
[2022-07-23] MEDS: SIMVASTATIN 10 MG TAB PO SCH (08:33)
[2022-07-23] MEDS: ASPIRIN 81 MG ECTAB PO SCH (08:33)
[2022-07-23] MEDS: lisinopril 5 MG TAB PO SCH (08:33)
[2022-07-23] MEDS: LEVOTHYROXINE SODIUM 125 MCG TABLET PO SCH (08:33)
[2022-07-23] MEDS: PANTOprazole 40 MG TAB PO SCH (08:33)
[2022-07-23] MEDS: INSULIN, Rapid-Acting PUMP SCH ×4 (08:54→20:22)
--- NOTE | 2022-07-23 08:57 | Hospitalist Progress Note ---
Date of Service July 23, 2022 Assessment & Plan (1) DKA (diabetic ketoacidosis): (2) High anion gap metabolic acidosis: Plan: Uncontrolled Diabetes type 1 Patient is 67-year-old female with PMH DM, on insulin pump, HTN, dyslipidemia, hypothyroidism, GERD, obesity, hypothyroidism, anxiety, depression presented to ER for altered mental status. Recent history multiple hospital admissions for DKA secondary to insulin pump issues. Present on admission with tachycardic, tachypneic and found to have BS. pH <7.0, bicarb 6, POC A. Lactate: 3.1, procalcitonin: 0.22, UA: 3+gluc, 4+ketones, 1+protein CT Head: no acute intracranial abnormality CT ABD/PELVIS:No acute abnormalities, no obstruction CXR: No acute infiltrate Received IVF and was started on insulin drip on admission Anion gap closed Recent Hba1c 07/18/22 was above 14 insulin drip discontinued and she was transition to [facility] Pharmacy on board for glycemic management hospital educator consulted and reviewed in detail w/ the pt DC instruction per DM educator Follow up w/ PCP, DM educator and endocrinology all scheduled (3) Electrolyte abnormality: Plan: Potassium 3.6 Phosphate replaced Continue monitor electrolytes (4) Hyponatremia: Plan: Pseudohyponatremia secondary to hyperglycemia Na improved to 139 Continue monitor resolved (5) JENNY (acute kidney injury): Plan: Due to dehydration/ DKA Cr: 1.9 on admission Baseline Cr: ~0.7 received IVF Lisinopril on hold Creatinine 0.5 today Monitor renal functions Resolved (6) Leukocytosis: Plan: Mostly reactive WBC 32K on admission Procalcitonin negative UA negative for UTI Blood cx no growth CXR showed no infiltrate CT abd/pelvis showed no acute abnormalities and in particular no evidence of obstruction. Diverticulosis is seen without diverticulitis. She was started on IV cefepime that was discontinued WBC 11K currently (7) Hypothyroidism: Plan: Transition to Po Levothyroxine (8) HTN (hypertension): Plan: Continue to hold Lisinopril due to elevate creatinine on admission Continue monitor BP Diarrhea Monitor electrolytes Continue monitor electrolytes Stools for Cdiff negative resolved (9) Mixed hyperlipidemia: Plan: On simvastatin at home (10) GERD (gastroesophageal reflux disease): Plan: On PPI at home DVT Prophylaxis Heparin SQ Full Code Disposition Plan to discharge tomorrow with Admission and Anticipated Discharge Date Admission Date: July 18, 2022 Subjective Pt was seen and examined for follow up of DKA Lying in bed in no acute distress Currently back on pump, had a long discussion w/ religious educator Denies any fever, chills, chest pain, palpitation, dizziness and shortness of breath Reports her room being cold (purposely for her room mate), and pt reports mild congestion/rhinorrhea Review of Systems Review of Systems: All systems reviewed & are unremarkable except as noted in Subjective Physical Exam Physical Exam: General- No acute distress Head- atraumatic Eyes- PERRL, EOMI, ENT- oropharynx clear Neck- supple, no JVD Lungs- clear to auscultation Heart- regular rhythm; no murmur Abdomen- normal bowel sounds, soft, nontender Extremities- no calf tenderness, moves extremities Neuro- alert, oriented x 3; PERRL, EOMI; no facial palsy; no dysarthria Skin- warm & dry Results & Data Results & Data ([facility]) Vital Signs (Past 12 Hours) Vital Signs Temp Pulse Pulse Resp BP Pulse Ox O2 Del Method 07/23/22 07:46 37.2 C 81 20 131/77 94 07/23/22 07:00 75 07/23/22 03:12 36.9 C 97 H 20 153/81 H 96 Room Air 07/22/22 22:08 88 07/22/22 23:05 36.8 C 75 20 99/63 L 96 Room Air Medications Administered Current Inpatient Medications Aspirin (Aspirin 81 Mg Ectab) 81 mg PO DAILY CLAUDIA Stop: 08/20/22 08:59 Last Admin: 07/23/22 08:33 Dose: 81 mg Dextrose (Dextrose 50% 50 Ml Syringe) 25 - 50 ml IV UD PRN; Protocol PRN Reason: Hypoglycemia Protocol Stop: 08/17/22 16:02 Fluoxetine HCl (Fluoxetine Hcl 20 Mg Cap) 40 mg PO DAILY CLAUDIA Stop: 08/20/22 08:59 Last Admin: 07/23/22 08:33 Dose: 40 mg Glucagon (Glucagon For Inj 1 Mg Vial) 1 mg SQ UD PRN; Protocol PRN Reason: Hypoglycemia Protocol Stop: 08/17/22 16:02 Glucose (Glucose 40% Gel 15 Gm Tube) 15 - 30 gm PO UD PRN; Protocol PRN Reason: Hypoglycemia Protocol Stop: 08/17/22 16:02 Glucose (Glucose 10 Tab/Tube) 4 - 8 tab PO UD PRN; Protocol PRN Reason: Hypoglycemia Treatment Stop: 08/17/22 16:02 Heparin Sodium (Porcine) (Heparin Sod 5,000 Unit/0.5 Ml Vial) 5,000 units SQ Q8 CLAUDIA Stop: 08/17/22 21:59 Last Admin: 07/23/22 05:06 Dose: 5,000 units Promethazine HCl 12.5 mg/ (Sodium Chloride) 50.5 mls @ 202 mls/hr IV Q6H PRN PRN Reason: Nausea And Vomiting Stop: 08/20/22 03:42 Insulin Aspart (Insulin Aspart Per Unit) [address] [facility] Stop: 08/19/22 11:29 Last Admin: 07/22/22 13:10 Dose: 15 units Insulin Aspart (Insulin, Rapid-Acting Pump) 1 each N/A [facility]; Protocol Stop: 08/21/22 16:29 Last Admin: 07/23/22 12:00 Dose: 1 each Insulin Aspart (Insulin Aspart 100 Units/Ml Vial) 0 units SC PRN PRN PRN Reason: Pump Refill Use ONLY Stop: 08/21/22 13:59 Insulin Glargine (Lantus Per Unit Charge) 35 units SQ DAILY [facility] Stop: 08/20/22 08:59 Last Admin: 07/22/22 08:48 Dose: 35 units Levothyroxine Sodium (Levothyroxine Sodium 125 Mcg Tablet) 125 mcg PO DAILY [facility] Stop: 08/20/22 08:59 Last Admin: 07/23/22 08:33 Dose: 125 mcg Lisinopril (Lisinopril 5 Mg Tab) 5 mg PO DAILY [facility] Stop: 08/20/22 08:59 Last Admin: 07/23/22 08:33 Dose: 5 mg Loperamide HCl (Loperamide Hcl 2 Mg Cap) 2 mg PO Q6H PRN PRN Reason: Diarrhea Stop: 08/20/22 05:42 Menthol (Cough Drop (Sugar Free) Gina 24 Gina/1 Box) 1 gina BUCCAL Q2H PRN PRN Reason: Sore Throat Stop: 08/22/22 11:37 Last Admin: 07/23/22 12:56 Dose: 1 gina Miscellaneous (Carbohydrates For Hypoglycemia ) 15 - 30 gm PO UD PRN PRN Reason: Hypoglycemia Protocol Stop: 08/17/22 16:02 Miscellaneous Information (Pharmacy Glycemic Mgmt Consult) 1 each N/A UD PRN; Protocol PRN Reason: Consult Stop: 08/17/22 20:32 Pantoprazole Sodium (Pantoprazole 40 Mg Tab) 40 mg PO QAM CLAUDIA Stop: 08/20/22 08:59 Last Admin: 07/23/22 08:33 Dose: 40 mg Simvastatin (Simvastatin 10 Mg Tab) 10 mg PO DAILY CLAUDIA Stop: 08/20/22 08:59 Last Admin: 07/23/22 08:33 Dose: 10 mg Trazodone HCl (Trazodone Hcl 50 Mg Tab) 50 mg PO HS CLAUDIA Stop: 08/19/22 20:59 Last Admin: 07/22/22 20:26 Dose: 50 mg (1) Leukocytosis Leukocytosis type: unspecified Qualified Code(s): D72.829 - Elevated white blood cell count, unspecified
[2022-07-23] MEDS ORDERED: COUGH DROP (SUGAR FREE) LOZ 24 LOZ/1 BOX BUCCAL PRN (11:38)
--- NOTE | 2022-07-23 13:28 | Discharge Summary ---
Date of Service July 23, 2022 Admission HPI Per Admitting Provider Patient is 67-year-old female with PMH DM, on insulin pump, HTN, dyslipidemia, hypothyroidism, GERD, obesity, hypothyroidism, anxiety, depression presented to ER for reported unresponsiveness. History obtained from chart review and discussion with ER provider. Reported that patient was found confused and minimally responsive by family this afternoon and was last seen earlier this morning. Reports of noted vomit. EMS reported BSG greater than 600. Upon ER arrival patient noted to be tachypneic and is unable to give further history. Prior chart review patient with recent admission for DKA in April 2022 and most recently 06/07/22-06/10/22 for DKA. Recent outpatient visit with [facility] diabetes clinic notes reviewed and it is reported her prior insulin pump was having frequent occlusions. Patient received new insulin pump however continued frequent occlusions leading to suspension of pump and patient forgetting to restart. It is reported patient has only been receiving 25% or less of basal dosing. Patient admitted that she was refilling reservoir with insulin instead of changing cartridge out. She has also not been giving herself appropriate boluses and was soft and starting infusion set instead of using automatic insertion future. Admission Exam Per Admitting Provider General: +ill appearing, obese elderly female Head: normocephalic, atraumatic Eyes: PERRL, EOM's intact, conjunctiva non-injected, anicteric ENT: normal inspection external ears, nose, mucous membranes dry Neck: supple, trachea midline Lungs: clear, RR: 40, O2 sat 100% on RA, no wheezing/rhonchi/rales appreciated CV: +tachycardia, rate 120, regular rhythm, no pretibial edema Abd: protuberant, normal BS, soft, no apparent tenderness to palpation Ext: +mottled extremities, no erythema, can actively move arms and legs Neuro:+obtunded, drowsy, does moan and try to say words however words not clear Skin: as above in extremities, dry Principal Diagnosis DKA (diabetic ketoacidosis) High anion gap metabolic acidosis Uncontrolled Diabetes type 2 Electrolyte abnormality Hyponatremia JENNY (acute kidney injury) Leukocytosis Hypothyroidism HTN (hypertension) Diarrhea Discharge Exam General- No acute distress Head- atraumatic Eyes- PERRL, EOMI, ENT- oropharynx clear Neck- supple, no JVD Lungs- clear to auscultation Heart- regular rhythm; no murmur Abdomen- normal bowel sounds, soft, nontender Extremities- no calf tenderness, moves extremities Neuro- alert, oriented x 3; PERRL, EOMI; no facial palsy; no dysarthria Skin- warm & dry Discharge Data Allergies Allergy/AdvReac Type Severity Reaction Status Date / Time dextromethorphan Allergy Severe Difficulty Verified 06/07/22 10:07 Breathing doxylamine Allergy Severe Difficulty Verified 06/07/22 10:07 Breathing pseudoephedrine Allergy Severe Difficulty Verified 06/07/22 10:07 Breathing glyburide Allergy Intermediate RASH Verified 06/07/22 10:07 tetanus toxoid, adsorbed Allergy Intermediate painful Verified 06/07/22 10:07 joints Ethanol Allergy Severe Difficulty Uncoded 06/07/22 10:07 Breathing Consultations 07/18/22 17:27 ED Decision to Admit Stat 07/18/22 19:18 Consult Compliance Review Specialist Routine Ordered Studies 07/18/22 15:55 CT head/brain wo con Stat Impression: No acute intracranial hemorrhage, no evidence of acute territorial infarction or other acute intracranial disease process. 07/18/22 15:58 CT abd pelvis wo con Stat IMPRESSION: No acute abnormalities and in particular no evidence of obstruction. Diverticulosis is seen without diverticulitis. Diabetes Follow up Diabetes Follow-up Needed for HgbA1c >9% Hospital Course (1) DKA (diabetic ketoacidosis): (2) High anion gap metabolic acidosis: Uncontrolled Diabetes type 1 Patient is 67-year-old female with PMH DM, on insulin pump, HTN, dyslipidemia, hypothyroidism, GERD, obesity, hypothyroidism, anxiety, depression presented to ER for altered mental status. Recent history multiple hospital admissions for DKA secondary to insulin pump issues. Present on admission with tachycardic, tachypneic and found to have BS. pH <7.0, bicarb 6, POC A. Lactate: 3.1, procalcitonin: 0.22, UA: 3+gluc, 4+ketones, 1+protein CT Head: no acute intracranial abnormality CT ABD/PELVIS:No acute abnormalities, no obstruction CXR: No acute infiltrate Received IVF and was started on insulin drip on admission Anion gap closed Recent Hba1c 07/18/22 was above 14 insulin drip discontinued and she was transition to [facility] Pharmacy on board for glycemic management inclusion special educator consulted and reviewed in detail w/ the pt DC instruction per DM educator Follow up w/ PCP, DM educator and endocrinology all scheduled (3) Electrolyte abnormality: Potassium 3.6 Phosphate replaced Continue monitor electrolytes (4) Hyponatremia: Pseudohyponatremia secondary to hyperglycemia Na improved to 139 Continue monitor resolved (5) JENNY (acute kidney injury): Due to dehydration/ DKA Cr: 1.9 on admission Baseline Cr: ~0.7 received IVF Lisinopril on hold Creatinine 0.5 today Monitor renal functions Resolved (6) Leukocytosis: Mostly reactive WBC 32K on admission Procalcitonin negative UA negative for UTI Blood cx no growth CXR showed no infiltrate CT abd/pelvis showed no acute abnormalities and in particular no evidence of obstruction. Diverticulosis is seen without diverticulitis. She was started on IV cefepime that was discontinued WBC 11K currently (7) Hypothyroidism: Transition to Po Levothyroxine (8) HTN (hypertension): Continue to hold Lisinopril due to elevate creatinine on admission Continue monitor BP Diarrhea Monitor electrolytes Continue monitor electrolytes Stools for Cdiff negative resolved (9) Mixed hyperlipidemia: On simvastatin at home (10) GERD (gastroesophageal reflux disease): On PPI at home Disposition Plan to discharge tomorrow with Total Time Total Time Spent Total Time Spent (In Minutes): 40 Discharge Plan Discharge Items Patient Disposition: Home - Home Health Services Reason For Visit: DKA Discharge Diagnosis: DKA (diabetic ketoacidosis) High anion gap metabolic acidosis Uncontrolled Diabetes type 1 Electrolyte abnormality Hyponatremia JENNY (acute kidney injury) Leukocytosis Condition on Discharge: Fair Activity: Per Instructions section Non-emergency contact: Primary Care Provider Call non-emergency contact if: you have any medication questions and your symptoms worsen Follow-up/Referrals: Anson Hanson MD [Physician] - 10/03/22 1:[address], LDN, CDE [Registered Dietitian] - 07/29/22 2:00 pm Oswaldo Saxena MD [Primary Care Provider] - (Date & Time 07/25/2022 11:00 AM Provider Maria Fernanda Beavers MD Department Family [facility] ) Diet: Carb Count or DM1 Addtl Attending Provider Instructions: Follow up with your primary care office - Dr. Beavers on 07/25/22 @ 11:00 AM Follow up with [facility] Endocrinology: Shell Kay, RD, LDN, [facility] on 07/29/22 @ 2pm Dr. Anson Hanson on 10/03/22 @ 1pm Fall precaution Seek medical attention if your symptoms reoccur ADDITIONAL RECOMMENDATIONS FROM TISSUE REWINDER: - Reconnect back to your new insulin pump upon discharge. Send your old insulin pump back to the company. - Once you obtain supplies, recommend starting the Dexcom Continuous Glucose Monitor for all-day monitoring of your blood sugar levels. This is very important as it will help you identify high blood sugar levels sooner, which can help keep you out of the hospital. The Dexcom CGM also works with your pump to adjust insulin delivery as needed to help keep blood sugar levels in a safe range. - In the meantime, try to check your blood sugar before meals and before bed. Please bring your blood sugar log to your next appointment with your provider. - You are doing a great job choosing a new infusion site to help prevent kinks and poor insulin absorption. Be sure to change to a new site (at least 1-2" away from prior site) every time. - You are doing a great job with using a new reservoir every time. This is very important because refilling the reservoir with insulin instead of changing it out can cause occlusions (no insulin delivery), which increases the risk of diabetic ketoacidosis and hospital admits. - Last time, we set alarms on your pump as a reminder to bolus for your meals. Please work with Shell to change these times as needed. - We want to help make managing your diabetes as easy as possible. If you need help with anything, please call the hospital diabetes office at [phone] or [facility] Endocrinology at [phone]. Pending Studies at Discharge: No Stand-Alone Forms: My [employer], Smoking Cessation Medications and DC Order Prescriptions: Continued (DME) Dexcom G6 Sales Department Manager Misc See Rx Instructions .ROUTE .MEDSUPPLY Qty: 9 4RF Rx Instructions: Use with dexcom g6 system E10.65 (DME) Dexcom G6 Transmitter Device See Rx Instructions .ROUTE .MEDSUPPLY Qty: 1 3RF Rx Instructions: Change every 90 days E10.65 (DME) OneTouch Ultra Test Strip See Rx Instructions .Route Qty: 400 3RF Rx Instructions: Test four times daily (DME) blood-glucose meter [OneTouch Ultra2 Meter] Kit See Rx Instructions .Route Qty: 1 0RF Rx Instructions: Test blood sugars 4 times a day insulin aspart U-100 [Novolog U-100 Insulin aspart] 100 unit/mL solution See Rx Instructions continuous subcutaneous infusion DAILY Qty: 90 0RF Rx Instructions: via continuous subcutaneous infusion daily; TDD 100 units aspirin [Adult Low Dose Aspirin] 81 mg tablet,delayed release (DR/EC) 81 mg PO DAILY diphenhydramine HCl 25 mg capsule 25 mg PO HS PRN (Reason: Sleep) Rx Instructions: 25 mg PO at bedtime PRN; fluocinonide 0.05 % solution 1 applic topical DAILY fluoxetine 40 mg capsule 40 mg PO DAILY levothyroxine 125 mcg tablet 125 mcg PO DAILY lansoprazole 30 mg capsule,delayed release(DR/EC) 30 mg PO DAILYBB zolpidem 10 mg tablet 10 mg PO HS PRN (Reason: Sleep) trazodone 50 mg tablet 50 mg PO HS simvastatin 10 mg tablet 10 mg PO DAILY lisinopril 5 mg tablet 5 mg PO DAILY Phospha 250 Neutral 250 mg Tablet 1 tab PO QID Qty: 16 0RF Discharge Orders: Discharge Order (Routine); Ordered 07/23/22 Ordered By: Ishmael Maier Admission Data Admit Date/Time: 07/18/22 17:45 Attending Provider: Ishmael Maier Admit Provider: Kristen Willard Primary Care Provider: Oswaldo Saxena Other Providers: Kristen Willard ; Huan Stahl ; [facility] ; Latoya Bill ; [place]
[2022-07-23] MEDS: traZODone HCL 50 MG TAB PO SCH (20:22)
== END 2022-07-23 21:30 | disposition home health service (06) | DRG 637 ==
LOC: ED 15:43 → 1E 17:45 → SUATTDRO 17:45 → 1E 19:08 → 2N 07-20 14:00

== ENCOUNTER 2022-08-11 15:32 | Inpatient (IN) ==
[2022-08-11] MEDS ORDERED: SODIUM CHLORIDE 0.9% 1000ML 1,000 ML IV ONE ×3 (16:21→18:21)
--- NOTE | 2022-08-11 16:21 | ED Triage Note ---
Date of Service August 11, 2022 History of Present Illness This patient was briefly evaluated while in triage. An abbreviated physical exam was performed. This patient is a 67-year-old Female with past medical history of type 1 DM and hypertension who presents to the ED for evaluation of feeling lethargic, nauseated and having elevated blood sugars in the 300s-400s. History of DKA in the past. Not drinking because of the nausea, but not vomiting. She denies any pain. Uses insulin pump, states it has been functioning normally at home. Her pump did alarm in triage that it is out of insulin. Physical Exam CONSTITUTIONAL: No acute distress. Appears to feel unwell and fatigued. Dehydrated. RESPIRATORY: Clear to auscultation bilaterally. Equal expansion bilaterally. CARDIOVASCULAR: Tachycardic rate, regular rhythm with no murmurs, rubs or lomeli ps. Normal peripheral perfusion. No peripheral edema. GASTROINTESTINAL: soft nontender NEUROLOGIC: Alert and oriented X 4 with normal affect. Initial orders for labs and / or imaging were placed and patient was placed in the waiting area until a bed is available. Please see further documentation for the full ED course.
--- NOTE | 2022-08-11 17:10 | XRay Report ---
XR chest 1V portable HISTORY: 67 years-old Female Illness acute illness COMPARISON: Chest radiograph 07/18/2022 TECHNIQUE: AP view of the chest FINDINGS: Cardiomediastinal and hilar silhouettes are within normal limits. No pneumothorax, pleural effusion, airspace consolidation or overt pulmonary edema. Right shoulder rotator cuff calcific tendinosis. Deg enerative changes of the shoulders and spine. IMPRESSION: No acute process. ACT 112: Negative or not required by law. The above report was generated using voice recognition software. It may contain grammatical, syntax o r spelling errors. Electronically signed by: Joaquin Arthur M.D. 08/11/2022 5:08 PM
[2022-08-11] MEDS ORDERED: GLUCAGON FOR INJ 1 MG VIAL SQ PRN (17:22)
[2022-08-11] MEDS ORDERED: GLUCOSE 10 TAB/TUBE PO PRN (17:22)
[2022-08-11] MEDS ORDERED: GLUCOSE 40% GEL 15 GM TUBE PO PRN (17:22)
[2022-08-11] MEDS ORDERED: DKA GOAL RANGE 150-250 mg/dl ONE (17:22)
[2022-08-11] MEDS ORDERED: STAT INSULIN DRIP STA (17:22)
--- NOTE | 2022-08-11 17:25 | Emergency Department Note ---
Impression & Plan DKA (diabetic ketoacidosis), Headache, Acidosis, Tachypnea, COVID-19, Nausea ED Provider Note Provider: Jeremiah Tesfaye MD DATE OF SERVICE: 08/11/2022 CHIEF COMPLAINT: Nausea, high blood sugar HISTORY OF PRESENT ILLNESS: Patient is a 67-year-old female history of type 1 diabetes several admissions for DKA over the past several months presenting here stating that just today she became nauseous sick to her stomach but did not vomit. Denies abdominal pain. Blood sugars have been in the 300s to 400s and thus came here. Blood sugars in the 200s yesterday. Denies cough or recent fever. Denies recent ill contact or trauma. Denies chest pain to me. Patient states he does feel a bit short of breath. Insulin pump ran of insulin in the waiting room. REVIEW OF SYSTEMS: A total of 10 review of systems was obtained and negative except as stated above in the HPI. PAST MEDICAL HISTORY: As noted above MEDICATIONS: Reviewed home medications include insulin pump which is currently empty SOCIAL HISTORY: Lives at home with 17-year-old son PHYSICAL EXAM: GENERAL: alert and oriented in no acute distress on stretcher Head: normocephalic and atraumatic EYES: No injection, discharge or icterus. NECK: Trachea midline. Supple. ENT: Mucous membranes pink and moist. Pharynx without erythema or exudate. LUNGS: Airway patent. No retractions breath sounds clear but tachypneic HEART: Regular tachycardic rate and rhythm. No chest wall tenderness ABDOMEN: Soft and non-tender, without guarding or rebound. Insulin pump and Dexcom in place in the lower abdomen. SKIN: Acyanotic, warm, dry, without rashes EXTREMITIES: Without swelling, tenderness or deformity NEUROLOGICAL: No focal deficits. No aphasia. No facial droop or slurred speech. Normal strength and tone in the extremities. Sensation to gross touch normal. Ambulatory in room to bathroom multiple times. EK bpm sinus tachycardia. QTc 445. No acute ST segment elevation noted with some inferior T wave inversion. CONTINUOUS CARDIAC MONITORING: was ordered and showed a heart rate of 100s-110s bpm in sinus tachycardia Patient's laboratory studies and imaging reviewed. Differential includes Infection, dehydration, metabolic abnormality, hypo/hyperglycemia, electrolyte disturbance, anemia, hypoxia, cardiac sources, intracerebral event, toxicologic, neurologic, as well as other pathologies. IMPRESSION/MEDICAL DECISION MAKING: Patient was insulin pump ran of insulin in the waiting room. Difficult vascular access and utilized ultrasound to assist with this year into the left antecubital fossa into a vein although it was positional in nature. Given IV fluid resuscitation. Labs sent. X-ray without evidence of pneumonia. Does appear to have clinical symptoms with significant concern for DKA. Chest x-ray report reviewed without evidence of pneumonia. Insulin drip ordered. pH 7.1 with a bicarb of 6 consistent with DKA. Mild headache and given some Tylenol. Multiple liters of IV fluid ordered. Do not see clear evidence of bacterial infection at this point although urine samples pending collection. Is having some urinary frequency believes likely related to ketosis and hyperglycemia from DKA. Patient requires admission. Hospitalist contacted. COVID test returns positive possibly setting of the DKA. DIAGNOSIS: DKA, nausea, headache, COVID-19 DISPOSITION: Hospitalist will evaluate Patient was agreeable with this plan. Critical Care I have personally spent 35 minutes of critical care time in the direct management of this patient. This includes bedside care, interpretation of diagnostic studies, and testing, discussion with consultants, patient, and f amily members, and other required patient management activities. These 35 minutes is in excess of all separately billable procedures. Past Med/Surg History Medical History DKA (diabetic ketoacidosis) GERD (gastroesophageal reflux disease) HTN (hypertension) Hypothyroidism Mixed hyperlipidemia Presence of insulin pump Uncontrolled type 1 diabetes mellitus with hyperglycemia Surgical History History of cholecystectomy 1986 History of hysterectomy Non cancerous fibroid removal of 6 lbs History of shoulder surgery History of tonsillectomy Family History Grandmother (Maternal) Diabetes Mother Hypertension Heart disease Grandmother (Paternal) Diabetes Social History Smoking Status: Unknown if ever smoked Second Hand Exposure: No; Hx Alcohol Use: No Hx Substance Use: No Preferred Language: Hebrew Communication Ability: Effective Tuyere Fitter Required: No Beliefs That Will Affect Care: None marital status: Single Current Living Situation: Family Current Living Situation Comment: Grandson Feels Safe at Home: Yes Assistive Devices: CPAP Allergies Allergies Allergy/AdvReac Type Severity Reaction Status Date / Time dextromethorphan Allergy Severe Difficulty Verified 08/07/22 15:41 Breathing doxylamine Allergy Severe Difficulty Verified 08/07/22 15:41 Breathing pseudoephedrine Allergy Severe Difficulty Verified 08/07/22 15:41 Breathing glyburide Allergy Intermediate RASH Verified 08/07/22 15:41 tetanus toxoid, adsorbed Allergy Intermediate painful Verified 08/07/22 15:41 joints Ethanol Allergy Severe Difficulty Uncoded 08/07/22 15:41 Breathing Home Meds Home Medications Medication Instructions Recorded Confirmed aspirin 81 mg tablet,delayed 81 mg PO DAILY 01/29/21 08/11/22 release (Adult Low Dose Aspirin) diphenhydramine HCl 25 mg capsule 25 mg PO HS PRN Sleep 01/29/21 08/11/22 fluocinonide 0.05 % topical 1 applic topical DAILY 01/29/21 08/11/22 solution fluoxetine 40 mg capsule 40 mg PO DAILY 01/29/21 08/11/22 levothyroxine 125 mcg tablet 125 mcg PO DAILY 01/29/21 08/11/22 lansoprazole 30 mg capsule,delayed 30 mg PO DAILYBB 06/03/21 08/11/22 release zolpidem 10 mg tablet 10 mg PO HS PRN Sleep 06/03/21 08/11/22 simvastatin 10 mg tablet 10 mg PO DAILY 05/06/22 08/11/22 trazodone 50 mg tablet 50 mg PO HS 05/06/22 08/11/22 lisinopril 5 mg tablet 5 mg PO DAILY 07/18/22 08/11/22 Previous Rx's Medication Instructions Recorded Dexcom G6 Supervisor Nutritional Yeast (blood-glucose #9 ea 03/27/21 meter,continuous) Dexcom G6 Transmitter #1 ea 03/27/21 (blood-glucose transmitter) OneTouch Ultra Test (blood sugar #400 ea 07/10/21 diagnostic) blood-glucose meter (OneTouch #1 ea 03/20/22 Ultra2 Meter kit) sodium di- and 1 tab PO QID #16 tabs 06/10/22 monophosphate-potassium phos monobasic 250 mg tablet (Phospha 250 Neutral) insulin aspart U-100 100 unit/mL See Rx Instructions continuous 07/30/22 subcutaneous solution (Novolog subcutaneous infusion DAILY #90 mL U-100 Insulin aspart) Results & Data (ED) Vital Signs Vital Signs - 24 hr 08/11/22 16:18 08/11/22 16:22 08/11/22 18:00 Temperature 36.6 C Temperature Source Temporal Artery Scan Pulse Rate 109 H Pulse Rate [Finger] 106 H 98 H Respiratory Rate 18 20 22 Respiratory Effort / Characteristics Non-Labored Respiratory Depth Normal Blood Pressure 152/80 H Blood Pressure [Right Arm] 179/99 H 177/106 H Blood Pressure Mean 104 Blood Pressure Mean [Right Arm] 125 129 Pulse Oximetry 98 100 99 Oxygen Delivery Method Room Air Room Air Room Air Sepsis Recent Fever Within 48 Hours No Sepsis New/Unexplained Change in Mental Status No Sepsis Action Taken by Nursing No Action Required 08/11/22 20:00 Temperature Temperature Source Pulse Rate Pulse Rate [Finger] 120 H Respiratory Rate 24 Respiratory Effort / Characteristics Respiratory Depth Blood Pressure Blood Pressure [Right Arm] 168/55 H Blood Pressure Mean Blood Pressure Mean [Right Arm] 92 Pulse Oximetry 100 Oxygen Delivery Method Room Air Sepsis Recent Fever Within 48 Hours Sepsis New/Unexplained Change in Mental Status Sepsis Action Taken by Nursing Laboratory Data Result diagrams: 08/11/22 17:21 08/11/22 17:21 Lab Results 08/11/22 08/11/22 08/11/22 Range/Units 16:21 16:42 16:43 WBC (4.8-10.8) K/ul RBC (3.93-5.22) M/uL Hgb (12.0-16.0) g/dl Hct (34.1-44.9) % MCV (80.0-100.0) fL MCH (25.0-34.0) pg MCHC (32.0-36.0) g/dL RDW Std Deviation (36.4-46.3) fL RDW Coeff of Rossi (11.5-14.5) % Plt Count (130-400) K/uL MPV (9.4-12.3) fL Immature Gran % (Auto) % Neut % (Auto) % Lymph % (Auto) % [place] % (Auto) % Eos % (Auto) % Baso % (Auto) % Neut # (Auto) (1.4-6.5) K/uL Lymph # (Auto) (1.2-3.4) K/uL [place] # (Auto) (0.24-0.82) K/uL Eos # (Auto) (0-0.50) K/uL Baso # (Auto) (0-0.2) K/uL Immature Gran # (Auto) (0.00-0.02) K/uL VBG pH (7.36-7.41) VBG pCO2 (38-50) mmHg VBG pO2 mmHg VBG HCO3 mmol/L VBG O2 Saturation % VBG Base Excess mEq/L Sodium (136-145) mmol/L Potassium (3.5-5.1) mmol/L Chloride (98-107) mmol/L Carbon Dioxide (21-32) mmol/L Anion Gap (3-11) BUN (6-23) mg/dl Creatinine (0.6-1.2) mg/dl Est Cr Clr Drug Dosing Est GFR ( Amer) ml/min Est GFR (Non-Af Amer) ml/min BUN/Creatinine Ratio (10-20) Glucose (70-99(Fasting)) mg/dl POC Glucose 436 H* 511 H* (70-99) mg/dl Lactate (0.4-2.0) mmol/L Calcium (8.5-10.1) mg/dl Phosphorus (2.5-4.9) mg/dl Magnesium (1.7-2.4) mg/dl Total Bilirubin (0.2-1.0) mg/dl AST (13-39) U/L ALT (7-52) U/L Alkaline Phosphatase (34-104) U/L Total Protein (6.0-8.3) gm/dl Albumin (3.4-5.0) gm/dl Globulin (2.5-4.0) gm/dl Albumin/Globulin Ratio (0.9-2) Lipase (11-82) U/L Urine Osmolality (500-800) mOsm/kg Adenovirus (PCR) Not Detected (NotDetected) B. pertussis DNA (PCR) Not Detected (NotDetected) B.parapertussis DNA PCR Not Detected (NotDetected) C. pneumoniae DNA (PCR) Not Detected (NotDetected) Coronavirus OC43 (PCR) Not Detected (NotDetected) Coronavirus HKU1 (PCR) Not Detected (NotDetected) Coronavirus 229E (PCR) Not Detected (NotDetected) SARS-CoV-2 (PCR) DETECTED A* (NotDetected) Coronavirus NL63 (PCR) Not Detected (NotDetected) Human Metapneumovir PCR Not Detected (NotDetected) Influenza Type A (PCR) Not Detected (NotDetected) Influenza Type B (PCR) Not Detected (NotDetected) M. pneumoniae (PCR) Not Detected (NotDetected) Parainfluenza 1 (PCR) Not Detected (NotDetected) Parainfluenza 2 (PCR) Not Detected (NotDetected) Parainfluenza 3 (PCR) Not Detected (NotDetected) Parainfluenza 4 (PCR) Not Detected (NotDetected) RSV (PCR) Not Detected (NotDetected) Entero/Rhino (PCR) Not Detected (NotDetected) 08/11/22 08/11/22 08/11/22 Range/Units 17:21 17:21 17:21 WBC 12.43 H (4.8-10.8) K/ul RBC 4.49 (3.93-5.22) M/uL Hgb 13.9 (12.0-16.0) g/dl Hct 43.2 (34.1-44.9) % MCV 96.2 (80.0-100.0) fL MCH 31.0 (25.0-34.0) pg MCHC 32.2 (32.0-36.0) g/dL RDW Std Deviation 49.8 H (36.4-46.3) fL RDW Coeff of Rossi 14.1 (11.5-14.5) % Plt Count 503 H (130-400) K/uL MPV 11.4 (9.4-12.3) fL Immature Gran % (Auto) 0.7 % Neut % (Auto) 58.3 % Lymph % (Auto) 31.4 % [place] % (Auto) 8.4 % Eos % (Auto) 0.2 % Baso % (Auto) 1.0 % Neut # (Auto) 7.25 H (1.4-6.5) K/uL Lymph # (Auto) 3.90 H (1.2-3.4) K/uL [place] # (Auto) 1.04 H (0.24-0.82) K/uL Eos # (Auto) 0.03 (0-0.50) K/uL Baso # (Auto) 0.12 (0-0.2) K/uL Immature Gran # (Auto) 0.09 H (0.00-0.02) K/uL VBG pH 7.10 L (7.36-7.41) VBG pCO2 22 L (38-50) mmHg VBG pO2 32 mmHg VBG HCO3 7 mmol/L VBG O2 Saturation < 60.0 % VBG Base Excess -21.2 mEq/L Sodium 130 L (136-145) mmol/L Potassium 3.9 (3.5-5.1) mmol/L Chloride 99 (98-107) mmol/L Carbon Dioxide 6 L* (21-32) mmol/L Anion Gap 25 H (3-11) BUN 12 (6-23) mg/dl Creatinine 0.98 (0.6-1.2) mg/dl Est Cr Clr Drug Dosing Not Reportable Est GFR ( Amer) 69.2 ml/min Est GFR (Non-Af Amer) 59.7 ml/min BUN/Creatinine Ratio 12.2 (10-20) Glucose 505 H* (70-99(Fasting)) mg/dl POC Glucose (70-99) mg/dl Lactate (0.4-2.0) mmol/L Calcium 9.1 (8.5-10.1) mg/dl Phosphorus 3.6 (2.5-4.9) mg/dl Magnesium 1.9 (1.7-2.4) mg/dl Total Bilirubin 0.5 (0.2-1.0) mg/dl AST 7 L (13-39) U/L ALT 6 L (7-52) U/L Alkaline Phosphatase 106 H (34-104) U/L Total Protein 7.3 (6.0-8.3) gm/dl Albumin 4.3 (3.4-5.0) gm/dl Globulin 3.0 (2.5-4.0) gm/dl Albumin/Globulin Ratio 1.4 (0.9-2) Lipase 21 (11-82) U/L Urine Osmolality (500-800) mOsm/kg Adenovirus (PCR) (NotDetected) B. pertussis DNA (PCR) (NotDetected) B.parapertussis DNA PCR (NotDetected) C. pneumoniae DNA (PCR) (NotDetected) Coronavirus OC43 (PCR) (NotDetected) Coronavirus HKU1 (PCR) (NotDetected) Coronavirus 229E (PCR) (NotDetected) SARS-CoV-2 (PCR) (NotDetected) Coronavirus NL63 (PCR) (NotDetected) Human Metapneumovir PCR (NotDetected) Influenza Type A (PCR) (NotDetected) Influenza Type B (PCR) (NotDetected) M. pneumoniae (PCR) (NotDetected) Parainfluenza 1 (PCR) (NotDetected) Parainfluenza 2 (PCR) (NotDetected) Parainfluenza 3 (PCR) (NotDetected) Parainfluenza 4 (PCR) (NotDetected) RSV (PCR) (NotDetected) Entero/Rhino (PCR) (NotDetected) 08/11/22 08/11/22 08/11/22 Range/Units 18:54 20:07 20:22 WBC (4.8-10.8) K/ul RBC (3.93-5.22) M/uL Hgb (12.0-16.0) g/dl Hct (34.1-44.9) % MCV (80.0-100.0) fL MCH (25.0-34.0) pg MCHC (32.0-36.0) g/dL RDW Std Deviation (36.4-46.3) fL RDW Coeff of Rossi (11.5-14.5) % Plt Count (130-400) K/uL MPV (9.4-12.3) fL Immature Gran % (Auto) % Neut % (Auto) % Lymph % (Auto) % [place] % (Auto) % Eos % (Auto) % Baso % (Auto) % Neut # (Auto) (1.4-6.5) K/uL Lymph # (Auto) (1.2-3.4) K/uL [place] # (Auto) (0.24-0.82) K/uL Eos # (Auto) (0-0.50) K/uL Baso # (Auto) (0-0.2) K/uL Immature Gran # (Auto) (0.00-0.02) K/uL VBG pH (7.36-7.41) VBG pCO2 (38-50) mmHg VBG pO2 mmHg VBG HCO3 mmol/L VBG O2 Saturation % VBG Base Excess mEq/L Sodium (136-145) mmol/L Potassium (3.5-5.1) mmol/L Chloride (98-107) mmol/L Carbon Dioxide (21-32) mmol/L Anion Gap (3-11) BUN (6-23) mg/dl Creatinine (0.6-1.2) mg/dl Est Cr Clr Drug Dosing Est GFR ( Amer) ml/min Est GFR (Non-Af Amer) ml/min BUN/Creatinine Ratio (10-20) Glucose (70-99(Fasting)) mg/dl POC Glucose 412 H* 272 H (70-99) mg/dl Lactate (0.4-2.0) mmol/L Calcium (8.5-10.1) mg/dl Phosphorus (2.5-4.9) mg/dl Magnesium (1.7-2.4) mg/dl Total Bilirubin (0.2-1.0) mg/dl AST (13-39) U/L ALT (7-52) U/L Alkaline Phosphatase (34-104) U/L Total Protein (6.0-8.3) gm/dl Albumin (3.4-5.0) gm/dl Globulin (2.5-4.0) gm/dl Albumin/Globulin Ratio (0.9-2) Lipase (11-82) U/L Urine Osmolality 577 (500-800) mOsm/kg Adenovirus (PCR) (NotDetected) B. pertussis DNA (PCR) (NotDetected) B.parapertussis DNA PCR (NotDetected) C. pneumoniae DNA (PCR) (NotDetected) Coronavirus OC43 (PCR) (NotDetected) Coronavirus HKU1 (PCR) (NotDetected) Coronavirus 229E (PCR) (NotDetected) SARS-CoV-2 (PCR) (NotDetected) Coronavirus NL63 (PCR) (NotDetected) Human Metapneumovir PCR (NotDetected) Influenza Type A (PCR) (NotDetected) Influenza Type B (PCR) (NotDetected) M. pneumoniae (PCR) (NotDetected) Parainfluenza 1 (PCR) (NotDetected) Parainfluenza 2 (PCR) (NotDetected) Parainfluenza 3 (PCR) (NotDetected) Parainfluenza 4 (PCR) (NotDetected) RSV (PCR) (NotDetected) Entero/Rhino (PCR) (NotDetected) 08/11/22 08/11/22 Range/Units 20:29 21:07 WBC (4.8-10.8) K/ul RBC (3.93-5.22) M/uL Hgb (12.0-16.0) g/dl Hct (34.1-44.9) % MCV (80.0-100.0) fL MCH (25.0-34.0) pg MCHC (32.0-36.0) g/dL RDW Std Deviation (36.4-46.3) fL RDW Coeff of Rossi (11.5-14.5) % Plt Count (130-400) K/uL MPV (9.4-12.3) fL Immature Gran % (Auto) % Neut % (Auto) % Lymph % (Auto) % [place] % (Auto) % Eos % (Auto) % Baso % (Auto) % Neut # (Auto) (1.4-6.5) K/uL Lymph # (Auto) (1.2-3.4) K/uL [place] # (Auto) (0.24-0.82) K/uL Eos # (Auto) (0-0.50) K/uL Baso # (Auto) (0-0.2) K/uL Immature Gran # (Auto) (0.00-0.02) K/uL VBG pH (7.36-7.41) VBG pCO2 (38-50) mmHg VBG pO2 mmHg VBG HCO3 mmol/L VBG O2 Saturation % VBG Base Excess mEq/L Sodium (136-145) mmol/L Potassium (3.5-5.1) mmol/L Chloride (98-107) mmol/L Carbon Dioxide (21-32) mmol/L Anion Gap (3-11) BUN (6-23) mg/dl Creatinine (0.6-1.2) mg/dl Est Cr Clr Drug Dosing Est GFR ( Amer) ml/min Est GFR (Non-Af Amer) ml/min BUN/Creatinine Ratio (10-20) Glucose (70-99(Fasting)) mg/dl POC Glucose 228 H (70-99) mg/dl Lactate 2.2 H* (0.4-2.0) mmol/L Calcium (8.5-10.1) mg/dl Phosphorus (2.5-4.9) mg/dl Magnesium (1.7-2.4) mg/dl Total Bilirubin (0.2-1.0) mg/dl AST (13-39) U/L ALT (7-52) U/L Alkaline Phosphatase (34-104) U/L Total Protein (6.0-8.3) gm/dl Albumin (3.4-5.0) gm/dl Globulin (2.5-4.0) gm/dl Albumin/Globulin Ratio (0.9-2) Lipase (11-82) U/L Urine Osmolality (500-800) mOsm/kg Adenovirus (PCR) (NotDetected) B. pertussis DNA (PCR) (NotDetected) B.parapertussis DNA PCR (NotDetected) C. pneumoniae DNA (PCR) (NotDetected) Coronavirus OC43 (PCR) (NotDetected) Coronavirus HKU1 (PCR) (NotDetected) Coronavirus 229E (PCR) (NotDetected) SARS-CoV-2 (PCR) (NotDetected) Coronavirus NL63 (PCR) (NotDetected) Human Metapneumovir PCR (NotDetected) Influenza Type A (PCR) (NotDetected) Influenza Type B (PCR) (NotDetected) M. pneumoniae (PCR) (NotDetected) Parainfluenza 1 (PCR) (NotDetected) Parainfluenza 2 (PCR) (NotDetected) Parainfluenza 3 (PCR) (NotDetected) Parainfluenza 4 (PCR) (NotDetected) RSV (PCR) (NotDetected) Entero/Rhino (PCR) (NotDetected) Administered Medications Insulin Human Regular 250 (units/ Sodium Chloride) 250 mls @ 6.4 mls/hr IV . Q24H [facility]; Protocol Stop: 09/10/22 17:29 Last Titration: 08/11/22 21:13 Dose: 5.1 units/hr, 5.1 mls/hr Documented By: QGV Co-signed By: MALIK Titration: 08/11/22 20:16 Dose: 6.4 units/hr, 6.4 mls/hr Documented By: QGV Co-signed By: SW Admin: 08/11/22 18:54 Dose: 8 units/hr, 8 mls/hr Documented By: QGV Co-signed By: MATTHIEU Discontinued Medications Acetaminophen (Acetaminophen 325 Mg Tab) 650 mg PO NOW STA Stop: 08/11/22 17:34 Last Admin: 08/11/22 17:58 Dose: 650 mg Documented By: QGV Famotidine (Famotidine 20mg/5ml Iv Push) 20 mg IV ONE STA Stop: 08/11/22 20:10 Last Admin: 08/11/22 20:16 Dose: 20 mg Documented By: QGV Sodium Chloride (Nss 1000ml) 1,000 mls @ 999 mls/hr IV .Q1H1M ONE Stop: 08/11/22 17:21 Last Infusion: 08/11/22 20:43 Dose: 0 mls/hr Documented By: Admin: 08/11/22 17:29 Dose: 999 mls/hr Documented By: QGV Sodium Chloride (Nss 1000ml) 1,000 mls @ 999 mls/hr IV .Q1H1M ONE Stop: 08/11/22 18:19 Last Infusion: 08/11/22 20:43 Dose: 0 mls/hr Documented By: Admin: 08/11/22 18:11 Dose: 999 mls/hr Documented By: QGV Sodium Chloride (Nss 1000ml) 1,000 mls @ 999 mls/hr IV .Q1H1M ONE Stop: 08/11/22 19:21 Last Infusion: 08/11/22 20:44 Dose: 0 mls/hr Documented By: Admin: 08/11/22 20:00 Dose: 999 mls/hr Documented By: QGV Insulin Human Regular (Novolin-R Insulin Per Unit Charge) 7 units IV NOW STA Stop: 08/11/22 18:21 Last Admin: 08/11/22 18:29 Dose: 7 units Documented By: QGV Co-signed By: MALIK Ac (Stat Insulin Drip) 1 each N/A NOW STA Stop: 08/11/22 17:23 Last Admin: 08/11/22 18:54 Dose: 1 each Documented By: QGV Yashira (Dka Goal Range 150-250 Mg/Dl) 1 each N/A ONE ONE Stop: 08/11/22 17:23 Last Admin: 08/11/22 18:54 Dose: 1 each Documented By: QGV Ondansetron HCl (Ondansetron Inj 2 Mg/Ml 2 Ml Vial) 4 mg IV NOW STA Stop: 08/11/22 17:34 Last Admin: 08/11/22 17:58 Dose: 4 mg Documented By: QGV Ondansetron HCl (Ondansetron Inj 2 Mg/Ml 2 Ml Vial) 4 mg IV NOW STA Stop: 08/11/22 20:08 Last Admin: 08/11/22 20:15 Dose: 4 mg Documented By: QGV Potassium Chloride (Potassium Chloride Crtab 20 Meq Tabcr) 40 meq PO NOW STA Stop: 08/11/22 18:48 Last Admin: 08/11/22 20:15 Dose: 40 meq Documented By: QGV Imaging Data Radiologist's Impression: Chest X-Ray 08/11/22 16:21 XR chest 1V portable HISTORY: 67 years-old Female Illness acute illness COMPARISON: Chest radiograph 07/18/2022 TECHNIQUE: AP view of the chest FINDINGS: Cardiomediastinal and hilar silhouettes are within normal limits. No pneumothorax, pleural effusion, airspace consolidation or overt pulmonary edema. Right shoulder rotator cuff calcific tendinosis. Degenerative changes of the shoulders and spine. IMPRESSION: No acute process. ACT 112: Negative or not required by law. The above report was generated using voice recognition software. It may contain grammatical, syntax or spelling errors. Electronically signed by: Joaquin Arthur M.D. 08/11/2022 5:08 PM Discharge Plan Visit Data Chief Complaint: Illness ED Provider: Jeremiah Tesfaye Discharge Problem: DKA (diabetic ketoacidosis), Headache, Acidosis, Tachypnea, COVID-19, Nausea Patient Disposition: Admitted As Inpatient Forms Stand Alone Forms: [facility] Prescriptions Prescriptions: No Action (DME) Dexcom G6 Supervisor Nutritional Yeast Misc See Rx Instructions .ROUTE .MEDSUPPLY Qty: 9 4RF Rx Instructions: Use with dexcom g6 system E10.65 (DME) Dexcom G6 Transmitter Device See Rx Instructions .ROUTE .MEDSUPPLY Qty: 1 3RF Rx Instructions: Change every 90 days E10.65 (DME) OneTouch Ultra Test Strip See Rx Instructions .Route Qty: 400 3RF Rx Instructions: Test four times daily (DME) blood-glucose meter [OneTouch Ultra2 Meter] Kit See Rx Instructions .Route Qty: 1 0RF Rx Instructions: Test blood sugars 4 times a day insulin aspart U-100 [Novolog U-100 Insulin aspart] 100 unit/mL solution See Rx Instructions continuous subcutaneous infusion DAILY Qty: 90 0RF Rx Instructions: via continuous subcutaneous infusion daily; TDD 100 units aspirin [Adult Low Dose Aspirin] 81 mg tablet,delayed release (DR/EC) 81 mg PO DAILY diphenhydramine HCl 25 mg capsule 25 mg PO HS PRN (Reason: Sleep) Rx Instructions: 25 mg PO at bedtime PRN; fluocinonide 0.05 % solution 1 applic topical DAILY fluoxetine 40 mg capsule 40 mg PO DAILY levothyroxine 125 mcg tablet 125 mcg PO DAILY lansoprazole 30 mg capsule,delayed release(DR/EC) 30 mg PO DAILYBB zolpidem 10 mg tablet 10 mg PO HS PRN (Reason: Sleep) trazodone 50 mg tablet 50 mg PO HS simvastatin 10 mg tablet 10 mg PO DAILY lisinopril 5 mg tablet 5 mg PO DAILY Phospha 250 Neutral 250 mg Tablet 1 tab PO QID Qty: 16 0RF Referrals Referrals: Oswaldo Saxena MD [Primary Care Provider] -
[2022-08-11] MEDS ORDERED: INSULIN REGULAR 250 UNITS in SODIUM CHLORIDE 0.9% 247.5 ML IV SCH ×2 (17:30→22:35)
[2022-08-11 17:32] LABS: Basophils # (auto) 0.12 K/uL (0-0.2); Eosinophils # (auto) 0.03 K/uL (0-0.50); Eosinophils % (auto) 0.2 %; Hematocrit (blood only) 43.2 % (34.1-44.9); Hemoglobin 13.9 g/dl (12.0-16.0); Immature Granulocytes # (auto) 0.09 K/uL (0.00-0.02); Immature Granulocytes % (auto) 0.7 %; Lymphocytes % (auto) 31.4 %; Mean Corpuscular Hgb Conc 32.2 g/dL (32.0-36.0); Mean Corpuscular Volume 96.2 fL (80.0-100.0); Mean Platelet Volume 11.4 fL (9.4-12.3); Monocytes # (auto) 1.04 K/uL (0.24-0.82); Monocytes % (auto) 8.4 %; Neutrophils # (auto) 7.25 K/uL (1.4-6.5); Neutrophils % (auto) 58.3 %; Platelet Count 503 K/uL (130-400); RDW Coefficient of Variation 14.1 % (11.5-14.5); RDW Standard Deviation 49.8 fL (36.4-46.3); Red Blood Count 4.49 M/uL (3.93-5.22); White Blood Count 12.43 K/ul (4.8-10.8)
[2022-08-11 17:33] LABS: Base Excess VBG -21.2 mEq/L; HCO3 VBG 7 mmol/L; Oxygen Saturation VBG < 60.0 %; PCO2 VBG 22 mmHg (38-50); PO2 VBG 32 mmHg
[2022-08-11] MEDS ORDERED: ONDANSETRON INJ 2 MG/ML 2 ML VIAL IV STA ×2 (17:33→20:07)
[2022-08-11] MEDS ORDERED: ACETAMINOPHEN 325 MG TAB PO STA (17:33)
[2022-08-11 17:55] LABS: Adenovirus PCR Not Detected (NotDetected); Bordetella parapertussis PCR Not Detected (NotDetected); Bordetella pertussis PCR Not Detected (NotDetected); Chlamydia pneumoniae PCR Not Detected (NotDetected); Coronavirus 229E PCR Not Detected (NotDetected); Coronavirus HKU1 PCR Not Detected (NotDetected); Coronavirus NL63 PCR Not Detected (NotDetected); Coronavirus OC43PCR Not Detected (NotDetected); Human Metapneumovirus PCR Not Detected (NotDetected); Influenza A PCR Not Detected (NotDetected); Influenza B PCR Not Detected (NotDetected); Mycoplasma pneumoniae PCR Not Detected (NotDetected); Parainfluenza Virus 1 PCR Not Detected (NotDetected); Parainfluenza Virus 2 PCR Not Detected (NotDetected); Parainfluenza Virus 3 PCR Not Detected (NotDetected); Parainfluenza Virus 4 PCR Not Detected (NotDetected); Respiratory Syncytial VirusPCR Not Detected (NotDetected); Rhinovirus/Enterovirus PCR Not Detected (NotDetected)
[2022-08-11 18:11] LABS: Alanine Aminotransferase 6 U/L (7-52); Albumin Globulin Ratio 1.4 (0.9-2); Albumin Level 4.3 gm/dl (3.4-5.0); Alkaline Phosphatase 106 U/L (34-104); Anion Gap 25 (3-11); Aspartate Aminotransferase 7 U/L (13-39); BUN Creatinine Ratio 12.2 (10-20); Bilirubin,Total 0.5 mg/dl (0.2-1.0); Blood Urea Nitrogen 12 mg/dl (6-23); Calcium 9.1 mg/dl (8.5-10.1); Carbon Dioxide 6 mmol/L (21-32); Chloride 99 mmol/L (98-107); Est GFR (African American) 69.2 ml/min; Est GFR (Non-African American) 59.7 ml/min; Glucose 505 mg/dl (70-99(Fasting)); Lipase 21 U/L (11-82); Magnesium 1.9 mg/dl (1.7-2.4); Phosphorus 3.6 mg/dl (2.5-4.9); Potassium 3.9 mmol/L (3.5-5.1); Sodium 130 mmol/L (136-145); Total Protein 7.3 gm/dl (6.0-8.3)
[2022-08-11] MEDS ORDERED: NovoLIN-R INSULIN PER UNIT CHARGE IV STA (18:20)
[2022-08-11 18:34] LABS: Coronavirus CoV-2 (COVID19)PCR DETECTED (NotDetected)
[2022-08-11] MEDS ORDERED: POTASSIUM CHLORIDE CRTAB 20 MEQ TABCR PO STA (18:47)
--- NOTE | 2022-08-11 19:20 | Critical Care Consultation ---
Date of Consultation August 11, 2022 Assessment & Plan (1) Diabetic ketoacidosis associated with type 1 diabetes mellitus: (2) Hypothyroidism: (3) GERD (gastroesophageal reflux disease): (4) HTN (hypertension): Plan Reason Critically Ill: 67 YOF with DMI on home insulin pump. Admitted to ICU for DKA in the setting of COVID 19 infection and possible pump misuse as empty. Neuro - No acute needs CAM ICU: Negative She is without encehaplopathy or neurological deficit Hold further sedating medications - ambien/trazadone Cardiac - HTN, HLD, Tachycardia Tachycardia secodnary to DKA likely at this time treat underlying cause, keep electrolytes with K~4.0, Mg ~2.0 Hold BRADY and follow renal indicies inthe morning Continue statin Respiratory - COVID 19, Tachypnea with kussumal respirations likely primary reltated to DKA at this time CXR without opacities follow with resolution of DKA Not hypoxic- no indication for other COVID therapy- supportive care at this time GI - GERD Continue PPI NPO RENAL/LYTES - AGAP Acidosis Follow renal indices with DKA and volume resuscitation Acid base status: AGAP Metabolic Acidosis Treat DKA - No caute needs at this time UA ordered on arrival ENDO - DKA, DMI, Presence of Insulin Pump DKA on admission with elevated glucose, AGAP, PH 7.1 and HCO3 7 Continue with Volume resuscitation and Insulin Drip Dextrose to IVF when BG <250 - Recommend strongly that patient follows up with her senior software qa analyst Dr. Parker following this admission. Patient did not get in contact with him following last admission. She does not know what her basal rate is and seems confused about bolusing herself insulin. She did not give herself extra insulin today because she wasn't eating, her only oral intake today was orange juice. HEME - No acute needs ID - COVID 19, Luekocytosis As above look for other sources Get Euvolemic, follow fever curve and CBC LINES/IV ACCESS - PIV Poor access on admission may need arterial line for frequent blood draws or CVL Continue use of these lines DVT PROPHYLAXIS - SCDS, Heparin 5000 units sub q DISPO: ICU until gap closes, PH improves I have personally spent 40 minutes of critical care time in the direct management of this patient. This is a life/limb threatening event. This includes time spent evaluating patient, direct bedside care, chart review, placing orders, interpretation of diagnostic studies, discussion with consultants, patient, and family members, as well as other required patient management activities. This time is exclusive of all separately billable procedures, and separate from and in addition to any other critical care service time. Thank you for allowing us to participate in the care of this patient. Please refer to my attending physician's documentation for any further recommendations. History of Present Illness Reason for Consultation: DKA Requesting Physician: Kristen Villarreal Attending Physician: Brenda Villarreal History of Present Illness 67 YOF with history of DM I on home insulin pump. Patient presents to the EMD today for complaints of 1-2 days of fatigue, nausea, vomiting and generalized weakness. Patient has an insulin pump and reports that over the past day she has noticed her blood glucoses increasing to 200-300s, she reports not eating and not taking in much water and with increased urination. She was found to have COVID on admission. She reports that likely got this from her family visiting from [place] over the . During triage it was noted that her insulin pump was alarming that it was empty. This has now been discontinued and her insulin infusion has just recently been started. She is ordered for 3 Liters of Crystalloid, which is still hanging secondary to difficulty obtaining IV access. She has had previous admissions for DKA in the past most recently 07/20/22. Glucose on in the EMD is noted to be > 500, PH 7.1 with HCO3 of 7 and gap of 25. Renal function is intact this admission and K is 3.9. She is with Kussmaul respirations and is without encephalopathy. Patient will be admitted to ICU to continue DKA management. CXR reviewed with no acute process, will obtain UA to rule out other infectious causes other than COVID 19. COVID on admission is: POSITIVE Patient is FULL CODE Allergies Allergy/AdvReac Type Severity Reaction Status Date / Time dextromethorphan Allergy Severe Difficulty Verified 08/07/22 15:41 Breathing doxylamine Allergy Severe Difficulty Verified 08/07/22 15:41 Breathing pseudoephedrine Allergy Severe Difficulty Verified 08/07/22 15:41 Breathing glyburide Allergy Intermediate RASH Verified 08/07/22 15:41 tetanus toxoid, adsorbed Allergy Intermediate painful Verified 08/07/22 15:41 joints Ethanol Allergy Severe Difficulty Uncoded 11/24/22 15:41 Breathing Home Medications Medication Instructions Recorded Confirmed Type aspirin 81 mg tablet,delayed 81 mg PO DAILY 01/29/21 08/11/22 History release (Adult Low Dose Aspirin) diphenhydramine HCl 25 mg capsule 25 mg PO HS PRN Sleep 01/29/21 08/11/22 History fluocinonide 0.05 % topical 1 applic topical DAILY 01/29/21 08/11/22 History solution fluoxetine 40 mg capsule 40 mg PO DAILY 01/29/21 08/11/22 History levothyroxine 125 mcg tablet 125 mcg PO DAILY 01/29/21 08/11/22 History Dexcom G6 [place] (blood-glucose #9 ea 03/27/21 08/11/22 Rx meter,continuous) Dexcom G6 Transmitter #1 ea 03/27/21 08/11/22 Rx (blood-glucose transmitter) lansoprazole 30 mg capsule,delayed 30 mg PO DAILYBB 06/03/21 08/11/22 History release zolpidem 10 mg tablet 10 mg PO HS PRN Sleep 06/03/21 08/11/22 History OneTouch Ultra Test (blood sugar #400 ea 07/10/21 08/11/22 Rx diagnostic) blood-glucose meter (OneTouch #1 ea 03/20/22 08/11/22 Rx Ultra2 Meter kit) simvastatin 10 mg tablet 10 mg PO DAILY 05/06/22 08/11/22 History trazodone 50 mg tablet 50 mg PO HS 05/06/22 08/11/22 History sodium di- and 1 tab PO QID #16 tabs 06/10/22 08/11/22 Rx monophosphate-potassium phos monobasic 250 mg tablet (Phospha 250 Neutral) lisinopril 5 mg tablet 5 mg PO DAILY 07/18/22 08/11/22 History insulin aspart U-100 100 unit/mL See Rx Instructions continuous 07/30/22 08/11/22 Rx subcutaneous solution (Novolog subcutaneous infusion DAILY #90 mL U-100 Insulin aspart) Patient History Medical History DKA (diabetic ketoacidosis) GERD (gastroesophageal reflux disease) HTN (hypertension) Hypothyroidism Mixed hyperlipidemia Presence of insulin pump Uncontrolled type 1 diabetes mellitus with hyperglycemia Surgical History History of cholecystectomy 1987 History of hysterectomy Non cancerous fibroid removal of 6 lbs History of shoulder surgery History of tonsillectomy Family History Grandmother (Maternal) Diabetes Mother Hypertension Heart disease Grandmother (Paternal) Diabetes Social History Smoking Status: Never smoker Second Hand Exposure: No; Hx Alcohol Use: No Hx Substance Use: No Preferred Language: Kyrgyz Communication Ability: Effective 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 Beliefs That Will Affect Care: None marital status: Single Current Living Situation: Family Current Living Situation Comment: Grandson Feels Safe at Home: Yes Safety Concerns: Feels Safe At This Time Assistive Devices: None Review of Systems Review of Systems: REVIEW OF SYSTEMS: Constitutional: (+) chills, weakness, Eyes: No diplopia, no worsening or blurred vision ENT: normal hearing, no trouble swallowing( Respiratory: (+) fast breathing, No cough, sputum, dyspnea at rest or on exertion Cardiovascular: No chest pain, tightness or palpitations Abdomen: (+) nausea, vomiting, No pain, diarrhea, constipation Musculoskeletal: No joint pain, calf pain, swelling Neurologic: (+) generalized weakness, numbness/tingling, or balance problems Psychiatric: No anxiety or depression Skin: No rash or itch Physical Exam Physical Exam: PHYSICAL EXAM: General: awake, alert, no apparent distress Head: Normocephalic, atraumatic ENT: PERRLA, EOMI, no pharyngeal exudate, mucous membranes dry Neuro: AAO x 3, speech clear and appropriate, strength intact bilaterally 5/5, sensation intact and equal all extremities and dermatomes, no pronator drift Chest: tachypnea, with kussumal respirations, equal rise and fall of the chest, , no heaves or thrills, Clear to auscultation, on room air, Cardiac: Regular rate and rhythm, telemetry reviewed- sinus tachycardia, skin warm dry, cap refill <3 seconds, peripheral pulses +2 no JVD, no murmur, no edema GI: NABS x 4 quadrants, soft, nontender to palpation, no rebound, guarding or tenderness : Spontaneously voiding, no pain, no CVA tenderness, Skin: no rash or erythema Results & Data Results & Data ([facility]) Vital Signs (Past 12 Hours) Vital Signs Temp Pulse Pulse Resp BP BP Pulse Ox 08/11/22 18:00 98 H 22 177/106 H 99 08/11/22 16:22 106 H 20 179/99 H 100 08/11/22 16:18 36.6 C 109 H 18 152/80 H 98 O2 Del Method 08/11/22 18:00 Room Air 08/11/22 16:22 Room Air 08/11/22 16:18 Room Air Laboratory Results Abnormal lab results 08/11/22 08/11/22 08/11/22 Range/Units 16:21 16:42 16:43 WBC (4.8-10.8) K/ul RDW Std Deviation (36.4-46.3) fL Plt Count (130-400) K/uL Neut # (Auto) (1.4-6.5) K/uL Lymph # (Auto) (1.2-3.4) K/uL [place] # (Auto) (0.24-0.82) K/uL Immature Gran # (Auto) (0.00-0.02) K/uL VBG pH (7.36-7.41) VBG pCO2 (38-50) mmHg Sodium (136-145) mmol/L Carbon Dioxide (21-32) mmol/L Anion Gap (3-11) Glucose (70-99(Fasting)) mg/dl POC Glucose 436 H* 511 H* (70-99) mg/dl AST (13-39) U/L ALT (7-52) U/L Alkaline Phosphatase (34-104) U/L SARS-CoV-2 (PCR) DETECTED A* (NotDetected) 08/11/22 08/11/22 08/11/22 Range/Units 17:21 17:21 17:21 WBC 12.43 H (4.8-10.8) K/ul RDW Std Deviation 49.8 H (36.4-46.3) fL Plt Count 503 H (130-400) K/uL Neut # (Auto) 7.25 H (1.4-6.5) K/uL Lymph # (Auto) 3.90 H (1.2-3.4) K/uL [place] # (Auto) 1.04 H (0.24-0.82) K/uL Immature Gran # (Auto) 0.09 H (0.00-0.02) K/uL VBG pH 7.10 L (7.36-7.41) VBG pCO2 22 L (38-50) mmHg Sodium 130 L (136-145) mmol/L Carbon Dioxide 6 L* (21-32) mmol/L Anion Gap 25 H (3-11) Glucose 505 H* (70-99(Fasting)) mg/dl POC Glucose (70-99) mg/dl AST 7 L (13-39) U/L ALT 6 L (7-52) U/L Alkaline Phosphatase 106 H (34-104) U/L SARS-CoV-2 (PCR) (NotDetected) 08/11/22 Range/Units 18:54 WBC (4.8-10.8) K/ul RDW Std Deviation (36.4-46.3) fL Plt Count (130-400) K/uL Neut # (Auto) (1.4-6.5) K/uL Lymph # (Auto) (1.2-3.4) K/uL [place] # (Auto) (0.24-0.82) K/uL Immature Gran # (Auto) (0.00-0.02) K/uL VBG pH (7.36-7.41) VBG pCO2 (38-50) mmHg Sodium (136-145) mmol/L Carbon Dioxide (21-32) mmol/L Anion Gap (3-11) Glucose (70-99(Fasting)) mg/dl POC Glucose 412 H* (70-99) mg/dl AST (13-39) U/L ALT (7-52) U/L Alkaline Phosphatase (34-104) U/L SARS-CoV-2 (PCR) (NotDetected) Diagnostic Findings Chest X-Ray 08/11/22 16:21 XR chest 1V portable HISTORY: 67 years-old Female Illness acute illness COMPARISON: Chest radiograph 07/18/2022 TECHNIQUE: AP view of the chest FINDINGS: Cardiomediastinal and hilar silhouettes are within normal limits. No pneumothorax, pleural effusion, airspace consolidation or overt pulmonary edema. Right shoulder rotator cuff calcific tendinosis. Degenerative changes of the shoulders and spine. IMPRESSION: No acute process. ACT 112: Negative or not required by law. The above report was generated using voice recognition software. It may contain grammatical, syntax or spelling errors. Electronically signed by: Joaquin Arthur M.D. 08/11/2022 5:08 PM Medications Administered Home Medications aspirin 81 mg tablet,delayed release (Adult Low Dose Aspirin) 81 mg PO DAILY 01/29/21 [History Confirmed 08/07/22] diphenhydramine HCl 25 mg capsule 25 mg PO HS PRN Sleep 01/29/21 [History Confirmed 08/07/22] fluocinonide 0.05 % topical solution 1 applic topical DAILY 01/29/21 [History Confirmed 08/07/22] fluoxetine 40 mg capsule 40 mg PO DAILY 01/29/21 [History Confirmed 08/07/22] levothyroxine 125 mcg tablet 125 mcg PO DAILY 01/29/21 [History Confirmed 08/07/22] DexPollitoIngles G6 [place] (blood-glucose meter,continuous) #9 ea 03/27/21 [Rx Confirmed 08/07/22] Dexcom G6 Transmitter (blood-glucose transmitter) #1 ea 03/27/21 [Rx Confirmed 08/07/22] lansoprazole 30 mg capsule,delayed release 30 mg PO DAILYBB 06/03/21 [History Confirmed 08/07/22] zolpidem 10 mg tablet 10 mg PO HS PRN Sleep 06/03/21 [History Confirmed 08/07/22] OneTouch Ultra Test (blood sugar diagnostic) #400 ea 07/10/21 [Rx Confirmed 08/07/22] blood-glucose meter (OneTouch Ultra2 Meter kit) #1 ea 03/20/22 [Rx Confirmed 07/18/22] simvastatin 10 mg tablet 10 mg PO DAILY 05/06/22 [History Confirmed 08/07/22] trazodone 50 mg tablet 50 mg PO HS 05/06/22 [History Confirmed 08/07/22] sodium di- and monophosphate-potassium phos monobasic 250 mg tablet (Phospha 250 Neutral) 1 tab PO QID #16 tabs 06/10/22 [Rx Confirmed 08/07/22] lisinopril 5 mg tablet 5 mg PO DAILY 07/18/22 [History Confirmed 08/07/22] insulin aspart U-100 100 unit/mL subcutaneous solution (Novolog U-100 Insulin aspart) See Rx Instructions continuous subcutaneous infusion DAILY #90 mL 07/30/22 [Rx Confirmed 08/07/22] Active Medications Dextrose (Dextrose 50% 50 Ml Syringe) 25 - 50 ml IV UD PRN; Protocol PRN Reason: Hypoglycemia Protocol Stop: 09/10/22 17:21 Glucagon (Glucagon For Inj 1 Mg Vial) 1 mg SQ UD PRN; Protocol PRN Reason: Hypoglycemia Protocol Stop: 09/10/22 17:21 Glucose (Glucose 40% Gel 15 Gm Tube) 15 - 30 gm PO UD PRN; Protocol PRN Reason: Hypoglycemia Protocol Stop: 09/10/22 17:21 Glucose (Glucose 10 Tab/Tube) 4 - 8 tab PO UD PRN; Protocol PRN Reason: Hypoglycemia Treatment Stop: 09/10/22 17:21 Insulin Human Regular 250 (units/ Sodium Chloride) 250 mls @ 8 mls/hr IV .Q24H CLAUDIA; Protocol Stop: 09/10/22 17:29 Last Admin: 08/11/22 18:54 Dose: 8 units/hr, 8 mls/hr Insulin Aspart (Insulin Aspart Per Unit) 0 units SC ACHS CLAUDIA Stop: 09/10/22 20:59 Miscellaneous (Carbohydrates For Hypoglycemia ) 15 - 30 gm PO UD PRN PRN Reason: Hypoglycemia Protocol Stop: 09/10/22 17:21 Insulin Human Regular 250 (units/ Sodium Chloride) 250 mls @ 8 mls/hr IV .Q24H CLAUDIA; Protocol Stop: 09/10/22 17:29 Last Admin: 08/11/22 18:54 Dose: 8 units/hr, 8 mls/hr Documented By: QGV Co-signed By: MATTHIEU Discontinued Medications Acetaminophen (Acetaminophen 325 Mg Tab) 650 mg PO NOW STA Stop: 08/11/22 17:34 Last Admin: 08/11/22 17:58 Dose: 650 mg Documented By: QGV Sodium Chloride (Nss 1000ml) 1,000 mls @ 999 mls/hr IV .Q1H1M ONE Stop: 08/11/22 17:21 Last Admin: 08/11/22 17:29 Dose: 999 mls/hr Documented By: QGV Sodium Chloride (Nss 1000ml) 1,000 mls @ 999 mls/hr IV .Q1H1M ONE Stop: 08/11/22 18:19 Last Admin: 08/11/22 18:11 Dose: 999 mls/hr Documented By: QGV Insulin Human Regular (Novolin-R Insulin Per Unit Charge) 7 units IV NOW STA Stop: 08/11/22 18:21 Last Admin: 08/11/22 18:29 Dose: 7 units Documented By: QGV Co-signed By: MALIK Miscellaneous (Stat Insulin Drip) 1 each N/A NOW STA Stop: 08/11/22 17:23 Last Admin: 08/11/22 18:54 Dose: 1 each Documented By: QGV Miscellaneous (Dka Goal Range 150-250 Mg/Dl) 1 each N/A ONE ONE Stop: 08/11/22 17:23 Last Admin: 08/11/22 18:54 Dose: 1 each Documented By: QGV Ondansetron HCl (Ondansetron Inj 2 Mg/Ml 2 Ml Vial) 4 mg IV NOW Stop: 08/11/22 17:34 Last Admin: 08/11/22 17:58 Dose: 4 mg Documented By: QGV ECG Additional Comments: Sinus tachycardia Anterior infarct (cited on or before 11-AUG-2022) Abnormal ECG When compared with ECG of 18-JUL-2022 15:50, T wave inversion more evident in Inferior leads Nonspecific T wave abnormality now evident in Anterolateral leads Coding Level of Care Code Critical Care 1st 30-74 mins Diagnoses Diabetic ketoacidosis associated with type 1 diabetes mellitus E10.10 Hypothyroidism E03.9 GERD (gastroesophageal reflux disease) K21.9 HTN (hypertension) I10
--- NOTE | 2022-08-11 19:47 | History & Physical Report ---
Date of Service August 11, 2022 Assessment & Plan (1) DKA (diabetic ketoacidosis): Plan: Pt presents with her fourth episode of DKA this fall. There has been concern for noncompliance as a contributing factor. Pt did test positive for COVID in the ED but denies any significant symptoms prior to today. Pt is acidotic with a pH on VBG of 7.1 and a bicarb of 6. Clinically dehydrated with difficulty with IV access in the ED - one line placed using U/S by ED physician. - Admit to ICU - Continue IVF as ordered by ED physician - had only received one liter at the time of my evaluation - Consult critical care - DKA protocol orders placed - will defer further management while in the ICU to critical care - Serial labs (2) Electrolyte abnormality: (3) Acidosis: (4) Tachypnea: Plan: Due to acidosis (5) COVID-19: Plan: Isolation precautions Not hypoxic so would not start dexamethasone at this time (6) GERD (gastroesophageal reflux disease): Plan: IV famotidine given in ED, will increase PPI to BID (7) Presence of insulin pump: (8) Mixed hyperlipidemia: (9) Hypothyroidism: (10) HTN (hypertension): Plan Pt seen and reviewed with attending physician, Dr. Willard. Plan of care discussed and as outlined above. Code Status: Full Code DVT Prophylaxis: oZ Cope PA-C History of Present Illness Chief Complaint: Weakness Primary Care Provider: Oswaldo Saxena MD This is a 65 y/o female with a PMH of type 1 DM on an insulin pump, hx DKA, HTN , hypothyroidism, GERD, and hyperlipidemia who presented to the ED today with weakness, nausea, and chills. Pt reports that she was feeling okay yesterday but when she woke up today, she was very weak and tired. She then developed shortness of breath, nausea and a mild YANES. She denies vomiting or diarrhea. Currently, she is complaining of significant epigastric burning and sensation that she is going to vomit and/or regurgitate but she reports that she hates to vomit so she is fighting the sensation. No cough, congestion, rhinorrhea. She is feeling cold but did not check her temperature so unsure if she had a fever. She said her sugars yesterday were in the 200s but she didn't check them today because she was so weak. She felt like she was going to pass out so she called for EMS. She denies known sick contacts although she is often around her grandson so she isn't sure if he has been ill. Of note, this is her fourth admission this fall for DKA and there is a question of noncompliance with her pump. Allergies Allergy/AdvReac Type Severity Reaction Status Date / Time dextromethorphan Allergy Severe Difficulty Verified 08/07/22 15:41 Breathing doxylamine Allergy Severe Difficulty Verified 08/07/22 15:41 Breathing pseudoephedrine Allergy Severe Difficulty Verified 08/07/22 15:41 Breathing glyburide Allergy Intermediate RASH Verified 08/07/22 15:41 tetanus toxoid, adsorbed Allergy Intermediate painful Verified 08/07/22 15:41 joints Ethanol Allergy Severe Difficulty Uncoded 08/07/22 15:41 Breathing Home Medications Medication Instructions Recorded Confirmed Type aspirin 81 mg tablet,delayed 81 mg PO DAILY 01/29/21 08/11/22 History release (Adult Low Dose Aspirin) diphenhydramine HCl 25 mg capsule 25 mg PO HS PRN Sleep 01/29/21 08/11/22 History fluocinonide 0.05 % topical 1 applic topical DAILY 01/29/21 08/11/22 History solution fluoxetine 40 mg capsule 40 mg PO DAILY 01/29/21 08/11/22 History levothyroxine 125 mcg tablet 125 mcg PO DAILY 01/29/21 08/11/22 History Dexcom G6 Mapper (blood-glucose #9 ea 03/27/21 08/11/22 Rx meter,continuous) Dexcom G6 Transmitter #1 ea 03/27/21 08/11/22 Rx (blood-glucose transmitter) lansoprazole 30 mg capsule,delayed 30 mg PO DAILYBB 06/03/21 08/11/22 History release zolpidem 10 mg tablet 10 mg PO HS PRN Sleep 06/03/21 08/11/22 History OneTouch Ultra Test (blood sugar #400 ea 07/10/21 08/11/22 Rx diagnostic) blood-glucose meter (OneTouch #1 ea 03/20/22 08/11/22 Rx Ultra2 Meter kit) simvastatin 10 mg tablet 10 mg PO DAILY 05/06/22 08/11/22 History trazodone 50 mg tablet 50 mg PO HS 05/06/22 08/11/22 History sodium di- and 1 tab PO QID #16 tabs 06/10/22 08/11/22 Rx monophosphate-potassium phos monobasic 250 mg tablet (Phospha 250 Neutral) lisinopril 5 mg tablet 5 mg PO DAILY 07/18/22 08/11/22 History insulin aspart U-100 100 unit/mL See Rx Instructions continuous 07/30/22 08/11/22 Rx subcutaneous solution (Novolog subcutaneous infusion DAILY #90 mL U-100 Insulin aspart) Past Med/Surg History Medical History DKA (diabetic ketoacidosis) GERD (gastroesophageal reflux disease) HTN (hypertension) Hypothyroidism Mixed hyperlipidemia Presence of insulin pump Uncontrolled type 1 diabetes mellitus with hyperglycemia Surgical History History of cholecystectomy 1986 History of hysterectomy Non cancerous fibroid removal of 6 lbs History of shoulder surgery History of tonsillectomy Family History Grandmother (Maternal) Diabetes Mother Hypertension Heart disease Grandmother (Paternal) Diabetes Social History Smoking Status: Unknown if ever smoked Second Hand Exposure: No; Hx Alcohol Use: No Hx Substance Use: No Preferred Language: Telugu Communication Ability: Effective Pleating Supervisor Required: No Beliefs That Will Affect Care: None marital status: Single Current Living Situation: Family Current Living Situation Comment: Grandson Feels Safe at Home: Yes Assistive Devices: CPAP Review of Systems Review of Systems: All systems reviewed & are unremarkable except as noted in HPI & below Constitutional: + chills, + fatigue, + weakness and + anorexia; no fever Eyes: no diplopia Ear, Nose, Mouth, Throat: no nasal congestion and no sore throat Respiratory: + dyspnea; no cough and no wheezing Cardiovascular: + lightheadedness; no chest pain, no palpitations and no syncope Gastrointestinal: + heartburn and + nausea Genitourinary: no dysuria and no hematuria Musculoskeletal: no back pain Integumentary: no rash and no yellowing of the skin Neurologic: + generalized weakness, + dizziness and + headache(s) Physical Exam Constitutional: + ill appearing and + in distress (appears uncomfortable) Eyes: + anicteric sclerae Neck: trachea midline Respiratory: + tachypneic Auscultation: lungs clear to auscultation bilaterally; no rales, no rhonchi and no wheezes Cardiovascular: Rate/Rhythm: regular rhythm and + tachycardic Vessels: radial pulses present Extremities: no pedal edema Gastrointestinal (Abdomen): Inspection/Auscultation: normal bowel sounds; abdomen not distended Percussion/Palpation: + abdomen tender (mild epigastric tenderness, o/w nontender) and abdomen soft; no guarding pt removed insulin pump from abdomen while I was in the room Musculoskeletal: Head/Neck/Chest: normocephalic, head atraumatic and neck supple Skin: no jaundice cool to touch distal extremities no diaphoresis Neurologic: moves all extremities; no focal motor deficits Psychiatric: Orientation: alert and oriented x 3 Results & Data Results & Data ([facility]) Vital Signs (Past 12 Hours) Vital Signs Temp Pulse Pulse Resp BP BP Pulse Ox 08/11/22 18:00 98 H 22 177/106 H 99 08/11/22 16:22 106 H 20 179/99 H 100 08/11/22 16:18 36.6 C 109 H 18 152/80 H 98 O2 Del Method 08/11/22 18:00 Room Air 08/11/22 16:22 Room Air 08/11/22 16:18 Room Air Laboratory Results Laboratory Results - last 24 hr 08/11/22 08/11/22 08/11/22 16:21 16:42 16:43 WBC RBC Hgb Hct MCV MCH MCHC RDW Std Deviation RDW Coeff of Rossi Plt Count MPV Immature Gran % (Auto) Neut % (Auto) Lymph % (Auto) [place] % (Auto) Eos % (Auto) Baso % (Auto) Neut # (Auto) Lymph # (Auto) [place] # (Auto) Eos # (Auto) Baso # (Auto) Immature Gran # (Auto) VBG pH VBG pCO2 VBG pO2 VBG HCO3 VBG O2 Saturation VBG Base Excess Sodium Potassium Chloride Carbon Dioxide Anion Gap BUN Creatinine Est Cr Clr Drug Dosing Est GFR ( Amer) Est GFR (Non-Af Amer) BUN/Creatinine Ratio Glucose POC Glucose 436 H* 511 H* Estimat Average Glucose Hemoglobin A1c Calcium Phosphorus Magnesium Total Bilirubin AST ALT Alkaline Phosphatase Total Protein Albumin Globulin Albumin/Globulin Ratio Lipase Adenovirus (PCR) Not Detected B. pertussis DNA (PCR) Not Detected B.parapertussis DNA PCR Not Detected C. pneumoniae DNA (PCR) Not Detected Coronavirus OC43 (PCR) Not Detected Coronavirus HKU1 (PCR) Not Detected Coronavirus 229E (PCR) Not Detected SARS-CoV-2 (PCR) DETECTED A* Coronavirus NL63 (PCR) Not Detected Human Metapneumovir PCR Not Detected Influenza Type A (PCR) Not Detected Influenza Type B (PCR) Not Detected M. pneumoniae (PCR) Not Detected Parainfluenza 1 (PCR) Not Detected Parainfluenza 2 (PCR) Not Detected Parainfluenza 3 (PCR) Not Detected Parainfluenza 4 (PCR) Not Detected RSV (PCR) Not Detected Entero/Rhino (PCR) Not Detected 08/11/22 08/11/22 08/11/22 17:21 17:21 17:21 WBC 12.43 H RBC 4.49 Hgb 13.9 Hct 43.2 MCV 96.2 MCH 31.0 MCHC 32.2 RDW Std Deviation 49.8 H RDW Coeff of Rossi 14.1 Plt Count 503 H MPV 11.4 Immature Gran % (Auto) 0.7 Neut % (Auto) 58.3 Lymph % (Auto) 31.4 [place] % (Auto) 8.4 Eos % (Auto) 0.2 Baso % (Auto) 1.0 Neut # (Auto) 7.25 H Lymph # (Auto) 3.90 H [place] # (Auto) 1.04 H Eos # (Auto) 0.03 Baso # (Auto) 0.12 Immature Gran # (Auto) 0.09 H VBG pH VBG pCO2 VBG pO2 VBG HCO3 VBG O2 Saturation VBG Base Excess Sodium 130 L Potassium 3.9 Chloride 99 Carbon Dioxide 6 L* Anion Gap 25 H BUN 12 Creatinine 0.98 Est Cr Clr Drug Dosing Not Reportable Est GFR ( Amer) 69.2 Est GFR (Non-Af Amer) 59.7 BUN/Creatinine Ratio 12.2 Glucose 505 H* POC Glucose Estimat Average Glucose Pending Hemoglobin A1c Pending Calcium 9.1 Phosphorus 3.6 Magnesium 1.9 Total Bilirubin 0.5 AST 7 L ALT 6 L Alkaline Phosphatase 106 H Total Protein 7.3 Albumin 4.3 Globulin 3.0 Albumin/Globulin Ratio 1.4 Lipase 21 Adenovirus (PCR) B. pertussis DNA (PCR) B.parapertussis DNA PCR C. pneumoniae DNA (PCR) Coronavirus OC43 (PCR) Coronavirus HKU1 (PCR) Coronavirus 229E (PCR) SARS-CoV-2 (PCR) Coronavirus NL63 (PCR) Human Metapneumovir PCR Influenza Type A (PCR) Influenza Type B (PCR) M. pneumoniae (PCR) Parainfluenza 1 (PCR) Parainfluenza 2 (PCR) Parainfluenza 3 (PCR) Parainfluenza 4 (PCR) RSV (PCR) Entero/Rhino (PCR) 08/11/22 08/11/22 17:21 18:54 WBC RBC Hgb Hct MCV MCH MCHC RDW Std Deviation RDW Coeff of Rossi Plt Count MPV Immature Gran % (Auto) Neut % (Auto) Lymph % (Auto) [place] % (Auto) Eos % (Auto) Baso % (Auto) Neut # (Auto) Lymph # (Auto) [place] # (Auto) Eos # (Auto) Baso # (Auto) Immature Gran # (Auto) VBG pH 7.10 L VBG pCO2 22 L VBG pO2 32 VBG HCO3 7 VBG O2 Saturation < 60.0 VBG Base Excess -21.2 Sodium Potassium Chloride Carbon Dioxide Anion Gap BUN Creatinine Est Cr Clr Drug Dosing Est GFR ( Amer) Est GFR (Non-Af Amer) BUN/Creatinine Ratio Glucose POC Glucose 412 H* Estimat Average Glucose Hemoglobin A1c Calcium Phosphorus Magnesium Total Bilirubin AST ALT Alkaline Phosphatase Total Protein Albumin Globulin Albumin/Globulin Ratio Lipase Adenovirus (PCR) B. pertussis DNA (PCR) B.parapertussis DNA PCR C. pneumoniae DNA (PCR) Coronavirus OC43 (PCR) Coronavirus HKU1 (PCR) Coronavirus 229E (PCR) SARS-CoV-2 (PCR) Coronavirus NL63 (PCR) Human Metapneumovir PCR Influenza Type A (PCR) Influenza Type B (PCR) M. pneumoniae (PCR) Parainfluenza 1 (PCR) Parainfluenza 2 (PCR) Parainfluenza 3 (PCR) Parainfluenza 4 (PCR) RSV (PCR) Entero/Rhino (PCR) Diagnostic Findings Chest X-ray 08/11/22 - IMPRESSION: No acute process. Medications Administered Insulin Human Regular 250 (units/ Sodium Chloride) 250 mls @ 8 mls/hr IV .Q24H CLAUDIA; Protocol Stop: 09/10/22 17:29 Last Admin: 08/11/22 18:54 Dose: 8 units/hr, 8 mls/hr Documented By: QGV Co-signed By: MMZ Discontinued Medications Acetaminophen (Acetaminophen 325 Mg Tab) 650 mg PO NOW STA Stop: 08/11/22 17:34 Last Admin: 08/11/22 17:58 Dose: 650 mg Documented By: QGV Sodium Chloride (Nss 1000ml) 1,000 mls @ 999 mls/hr IV .Q1H1M ONE Stop: 08/11/22 17:21 Last Admin: 08/11/22 17:29 Dose: 999 mls/hr Documented By: QGV Sodium Chloride (Nss 1000ml) 1,000 mls @ 999 mls/hr IV .Q1H1M ONE Stop: 08/11/22 18:19 Last Admin: 08/11/22 18:11 Dose: 999 mls/hr Documented By: QGV Insulin Human Regular (Novolin-R Insulin Per Unit Charge) 7 units IV NOW STA Stop: 08/11/22 18:21 Last Admin: 08/11/22 18:29 Dose: 7 units Documented By: QGV Co-signed By: MALIK Ac (Stat Insulin Drip) 1 each N/A NOW STA Stop: 08/11/22 17:23 Last Admin: 08/11/22 18:54 Dose: 1 each Documented By: QGV Yashira (Dka Goal Range 150-250 Mg/Dl) 1 each N/A ONE ONE Stop: 08/11/22 17:23 Last Admin: 08/11/22 18:54 Dose: 1 each Documented By: QGV Ondansetron HCl (Ondansetron Inj 2 Mg/Ml 2 Ml Vial) 4 mg IV NOW STA Stop: 08/11/22 17:34 Last Admin: 08/11/22 17:58 Dose: 4 mg Documented By: QGV Supervising Physician Co-Signing Physician Notes I have seen and examined the patient and have discussed the case with the provider above. I agree with the assessment and plan as stated with the following exceptions. 67-year-old insulin-dependent diabetic female presents in diabetic ketoacidosis. She has multiple recurring admissions to the hospital for noncompliance with insulin secondary to possible pump misuse. She also has been tested for COVID-19 infection and is positive. She is not requiring oxygen. She is tachypneic but is also acidotic. She reports that earlier today she became very nauseous and was unable to vomit because she "hates to vomit." She describes generalized malaise and was unable to eat. She reports having a little bit of orange juice this morning but the last solid food she ate was yesterday evening. She reports ongoing nausea with acid regurgitation into her throat. She denies cough or fevers. She also reports epigastric tenderness. She denies any UTI symptoms or any chest pain or other symptoms at this time. Physical exam reveals a tachypneic obese female in mild distress. She has clear conversational dyspnea but is not hypoxic. Lungs are clear to auscultation bilaterally. Cardiovascular exam reveals tachycardia with a regular rhythm and no evidence of murmurs gallops or rubs. Abdomen is tender in the epigastric region but otherwise soft and nondistended. Her skin is warm and dry with no obvious rashes. She is not demonstrating any gross focal neurologic deficits at this time. Speech is intact memory is intact. She is oriented. Work-up today reveals a CBC with white blood cell count of 12 K, platelet count of 503, last checked platelets were 367. INR is 1.1. Venous blood gas reveals a pH of 7.1. Chemistry panel reveals a sodium of 130 corrected to 136. Potassium is 3.9. Bicarb is 6. Anion gap is 25. Creatinine is 0.98. BUN is 12. Glucose was 505. Hepatic panel is otherwise normal. Lipase is 21. Urinalysis is pending. Chest x-ray reveals no acute disease. Abdominal imaging has not been performed. Generally this is a 67-year-old type I diabetic in diabetic ketoacidosis. She is clinically dehydrated and there has been difficulty finding IV access for IV fluid resuscitation. She received 1.5 L of normal saline in the ER. She received a bolus of insulin with continuous insulin drip. Her glucose is coming down as expected. She will go to the ICU this evening to continue close monitoring, fluid resuscitation, electrolyte monitoring and continued treatment to close her anion gap, fixing her breathing and likely her abdominal pain. Importantly, she has a social situation that may be contributing to this picture. She has a daughter in [facility] who was involved in her care from a distance. The patient currently lives alone but after multiple recurrent admissions, this may be a dangerous situation. She lives with an 18-year-old grandson but he is not able to provide care for her or help her with medications and essentially lives independently of her. She has another daughter who is estranged. The patient's motives have also been questions since losing her mother in the last 6 months. The patient's daughter has suggested that mom is depressed. Would strongly recommend case management contacting office of aging on this patient and considering placement for her safety. Otherwise, if additional safe arrangements can be made with the daughter in [facility], that may be an option. Discharging this patient home into the same environment may result in a recurrent admission and or , given her recent history of insulin noncompliance. Kristen Willard DO [facility] Hospitalist (1) DKA (diabetic ketoacidosis) Diabetes mellitus complication detail: without coma Diabetes mellitus type: type 1 Qualified Code(s): E10.10 - Type 1 diabetes mellitus with ketoacidosis without coma
--- NOTE | 2022-08-11 20:04 | Communication Note ---
Date of Service: August 11, 2022 67-year-old insulin-dependent diabetic female presents in diabetic ketoacidosis. She has multiple recurring admissions to the hospital for noncompliance with insulin secondary to possible pump misuse. She also has been tested for COVID-19 infection and is positive. She is not requiring oxygen. She is tachypneic but is also acidotic. She reports that earlier today she became very nauseous and was unable to vomit because she "hates to vomit." She describes generalized malaise and was unable to eat. She reports having a little bit of orange juice this morning but the last solid food she ate was yesterday evening. She reports ongoing nausea with acid regurgitation into her throat. She denies cough or fevers. She also reports epigastric tenderness. She denies any UTI symptoms or any chest pain or other symptoms at this time. Physical exam reveals a tachypneic obese female in mild distress. She has clear conversational dyspnea but is not hypoxic. Lungs are clear to auscultation bilaterally. Cardiovascular exam reveals tachycardia with a regular rhythm and no evidence of murmurs gallops or rubs. Abdomen is tender in the epigastric region but otherwise soft and nondistended. Her skin is warm and dry with no obvious rashes. She is not demonstrating any gross focal neurologic deficits at this time. Speech is intact memory is intact. She is oriented. Work-up today reveals a CBC with white blood cell count of 12 K, platelet count of 503, last checked platelets were 367. INR is 1.1. Venous blood gas reveals a pH of 7.1. Chemistry panel reveals a sodium of 130 corrected to 136. Potassium is 3.9. Bicarb is 6. Anion gap is 25. Creatinine is 0.98. BUN is 12. Glucose was 505. Hepatic panel is otherwise normal. Lipase is 21. Urinalysis is pending. Chest x-ray reveals no acute disease. Abdominal imaging has not been performed. Generally this is a 67-year-old type I diabetic in diabetic ketoacidosis. She is clinically dehydrated and there has been difficulty finding IV access for IV fluid resuscitation. She received 1.5 L of normal saline in the ER. She received a bolus of insulin with continuous insulin drip. Her glucose is coming down as expected. She will go to the ICU this evening to continue close monitoring, fluid resuscitation, electrolyte monitoring and continued treatment to close her anion gap, fixing her breathing and likely her abdominal pain. Importantly, she has a social situation that may be contributing to this picture. She has a daughter in [facility] who was involved in her care from a distance. The patient currently lives alone but after multiple recurrent admissions, this may be a dangerous situation. She lives with an 18-year-old grandson but he is not able to provide care for her or help her with medications and essentially lives independently of her. She has another daughter who is estranged. The patient's motives have also been questions since losing her mother in the last 6 months. The patient's daughter has suggested that mom is depressed. Would strongly recommend case management contacting office of aging on this patient and considering placement for her safety. Otherwise, if additional safe arrangements can be made with the daughter in [facility], that may be an option. Discharging this patient home into the same environment may result in a recurrent admission and or , given her recent history of insulin noncompliance. Kristen Willard, DO
[2022-08-11] MEDS ORDERED: FAMOTIDINE 20 MG in SYRINGE 3 ML IV STA (20:06)
[2022-08-11] MEDS ORDERED: FAMOTIDINE 20MG/5ML IV PUSH IV STA (20:09)
[2022-08-11] MEDS ORDERED: INSULIN ASPART PER UNIT SC SCH ×2 (21:00→22:35)
[2022-08-11] MEDS ORDERED: ICU Protocol for HYPERglycemia SCH (22:35)
[2022-08-11] MEDS ORDERED: PHARMACY GLYCEMIC MGMT CONSULT PRN ×2 (22:35)
[2022-08-11] MEDS ORDERED: STAT IV Infusion **Titration per Protocol STA ×2 (22:35)
[2022-08-11] MEDS ORDERED: LACTATED RINGER'S 1,000 ML IV SCH (22:35)
[2022-08-11] MEDS ORDERED: PENDING 1/2NSS+20mEq KCL IVF SCH (22:35)
[2022-08-11] MEDS ORDERED: PENDING D5 1/2NS+20mEq KCL IVF SCH (22:35)
[2022-08-11] MEDS: D5W AND 1/2NSS + 20MEQ KCL 20 MEQ/1,000 ML BAG IV SCH (23:03)
[2022-08-11] MEDS: PANTOprazole 40 MG in SYRINGE 0 ML IV SCH (23:04)
[2022-08-11 23:41] LABS: Anion Gap 16 (3-11); BUN Creatinine Ratio 11.7 (10-20); Blood Urea Nitrogen 9 mg/dl (6-23); Calcium 8.5 mg/dl (8.5-10.1); Carbon Dioxide 10 mmol/L (21-32); Chloride 105 mmol/L (98-107); Est GFR (African American) 92.6 ml/min; Est GFR (Non-African American) 79.9 ml/min; Glucose 172 mg/dl (70-99(Fasting)); Magnesium 1.6 mg/dl (1.7-2.4); Phosphorus 1.5 mg/dl (2.5-4.9); Potassium 3.4 mmol/L (3.5-5.1); Sodium 131 mmol/L (136-145)
[2022-08-12] MEDS ORDERED: POTASSIUM CHLORIDE CRTAB 20 MEQ TABCR PO STA ×2 (00:01→04:18)
[2022-08-12] MEDS: MAGNESIUM SULFATE / D5W 1 GM/100 ML BAG IV SCH ×3 (00:27→03:56)
[2022-08-12 00:47] LABS: Appearance Urine Clear (Clear); Bacteria Urine Automated 1+ (Negative); Bilirubin Urine Negative (Negative); Blood Urine Negative (Negative); Color Urine Yellow; Epithelial Cell Urine Auto >30 /lpf (0-5); Glucose Urine UA 3+ (Negative); Ketones Urine 4+ (Negative); Leukocyte Esterase Urine Negative (Negative); Nitrite Urine Negative (Negative); Protein Urine 1+ (Negative); RBC Urine Automated 0-4 /hpf (0-4); Specific Gravity Urine 1.021 (1.000-1.030); Urobilinogen Urine Negative (Negative)
[2022-08-12 03:37] LABS: BUN Creatinine Ratio 10.1 (10-20); Calcium 8.7 mg/dl (8.5-10.1); Creatinine Clr Calc Pharmacy 71.6 ml/min; Est GFR (African American) 89.8 ml/min; Est GFR (Non-African American) 77.5 ml/min; Potassium 3.5 mmol/L (3.5-5.1)
[2022-08-12 03:56] LABS: Magnesium 2.1 mg/dl (1.7-2.4); Phosphorus 1.4 mg/dl (2.5-4.9)
[2022-08-12] MEDS: ICU ELECTROLYTE REPLACEMENT PROTOCOL SCH ×2 (04:05→19:20)
[2022-08-12 04:59] LABS: BUN Creatinine Ratio 9.7 (10-20); Calcium 8.6 mg/dl (8.5-10.1); Creatinine Clr Calc Pharmacy 78.6 ml/min; Est GFR (African American) 100.4 ml/min; Est GFR (Non-African American) 86.7 ml/min; Potassium 3.7 mmol/L (3.5-5.1)
[2022-08-12 05:05] LABS: Magnesium 2.2 mg/dl (1.7-2.4); Phosphorus 1.2 mg/dl (2.5-4.9)
[2022-08-12] MEDS: LEVOTHYROXINE SODIUM 125 MCG TABLET PO SCH (05:31)
[2022-08-12] MEDS ORDERED: POTASSIUM PHOS 3 MMOL/1 ML INFUSION IV STA (05:39)
[2022-08-12] MEDS ORDERED: POTASSIUM PHOSPHATE 18 MMOL in SODIUM CHLORIDE 0.9% 500 ML IV ONE (06:00)
[2022-08-12] MEDS: D5W AND 1/2NSS + 20MEQ KCL 20 MEQ/1,000 ML BAG IV SCH (06:03)
[2022-08-12] MEDS: ASPIRIN 81 MG ECTAB PO SCH (07:21)
[2022-08-12] MEDS: ENOXAPARIN INJ 40 MG/0.4 ML SYR SQ SCH (07:22)
[2022-08-12] MEDS: FLUoxetine HCL 20 MG CAP PO SCH (07:22)
[2022-08-12] MEDS: POT PHOSPHATE MONOBASIC W/ SOD TAB PO SCH ×4 (07:23→22:47)
[2022-08-12] MEDS: lisinopril 5 MG TAB PO SCH (07:23)
[2022-08-12] MEDS: INSULIN ASPART PER UNIT SC SCH ×5 (07:33→22:46)
[2022-08-12] MEDS ORDERED: SODIUM CHLOR 0.45% + 20MEQ KCL 20 MEQ/1,000 ML BAG IV SCH (07:45)
[2022-08-12 07:52] LABS: Estimated Average Glucose 329 mg/dl; Hemoglobin A1C 13.1 % (4.5-5.6)
[2022-08-12] MEDS ORDERED: LANTUS PER UNIT CHARGE SQ SCH (08:00)
[2022-08-12] MEDS: PANTOprazole 40 MG in SYRINGE 0 ML IV SCH (08:36)
--- NOTE | 2022-08-12 09:11 | Electrocardiogram Report ---
Test Reason : Blood Pressure : / mmHG Vent. Rate : 118 BPM Atrial Rate : 118 BPM P-R Int : 154 ms QRS Dur : 082 ms QT Int : 318 ms P-R-T Axes : 061 068 001 degrees QTc Int : 445 ms Poor data quality, interpretation may be adversely affected Sinus tachycardia Abnormal ECG When compared with ECG of 18-JUL-2022 15:50, T wave inversion more evident in Inferior leads Nonspecific T wave abnormality now evident in Anterolateral leads Confirmed by Laron Correia ([id number]) on 08/12/2022 9:11:31 AM Referred By: REFERRED SELF Confirmed By:Shan Correia
--- NOTE | 2022-08-12 10:55 | Hospitalist Progress Note ---
Date of Service August 12, 2022 Assessment & Plan (1) DKA (diabetic ketoacidosis): Plan: Pt presents with her fourth episode of DKA in the last few months. There has been concern for noncompliance as a contributing factor. A1C is 13 reflective of poor overall control. Pt did test positive for COVID in the ED but denies any significant symptoms prior to today. Acidosis is improving with high anion gap closed. She is now eating and transitioning to basal bolus inuslin. Had some cereal this am. Phosphorus is being replaced. Will plan to transfer up to PCU when off the insulin drip and fluids, likely later this afternoon. (2) Presence of insulin pump: Plan: multiple episodes of noncompliance with the pump despite being taught on how to use this multiple times. There is a question of worsening depression since losing her mother this summer and one of her daughters is estranged. Lives with grandson, who is attending college locally and unable to care for her at home. Requested that OOA be involved-CM is looking into this. (3) Electrolyte abnormality: Plan: replaced, cont to monitor with am labs. (4) Tachypnea: Plan: Due to acidosis-resolved this morning. (5) COVID-19: Plan: Isolation precautions Not hypoxic so would not start dexamethasone at this time (6) GERD (gastroesophageal reflux disease): Plan: worsening reflux reported that is improved today, IV famotidine given in ED, increased PPI to BID (7) Hypothyroidism: Plan: chronic, stable. Cont levothyroxine at current dose. (8) HTN (hypertension): Plan: chronic, slightly elevated this am. She continues on lisinopril 5mg per home regimen. Will cont to monitor for now. (9) Depression: Plan: May be uncontrolled. Consider psychiatry consult this admission. Consider placement for safety. (10) DVT prophylaxis: Plan: Lovenox Full Code Advin-IEK-psam for transition to [facility] later this afternoon. Kristen Willard DO [facility] Hospitalist Admission and Anticipated Discharge Date Admission Date: August 11, 2022 Subjective 67-year-old type I diabetic female presents in diabetic ketoacidosis. Overnight her anion gap has resolved. She remains on insulin drip with dextrose half- normal plus potassium running. pH was last 7.3. Phos was 1.2. She is feeling much better than yesterday. Her breathing has improved. She denies any pain. She was able to eat some cereal this morning and received glargine 35 units subcu. Review of Systems Review of Systems: All systems reviewed negative except as indicated above. Physical Exam Physical Exam: Lines: US-guided peripheral line in RUE CONSTITUTIONAL: obese, vitals as above, generally well-appearing, NAD EYES: pupils are round and equal bilaterally, normal conjunctivae, no scleral icterus ENT: external ear and nose normal, MMM NECK: trachea midline RESPIRATORY: clear to auscultation bilaterally, no crackles, rales or wheezes, normal respiratory effort CARDIOVASCULAR: regular rate and rhythm, S1 and 2 heard without murmurs, gallops or rubs, no JVD, no peripheral edema CHEST: inspection of chest was normal GASTROINTESTINAL: soft, nontender, ND, no guarding MUSCULOSKELETAL: strength 5/5 throughout, head is normocephalic and atraumatic SKIN: warm and dry NEUROLOGIC: CN 2-12 grossly intact, no sensory deficit, normal cognition, normal speech PSYCHIATRIC: alert cooperative and oriented to person, place and time. Euthymic mood, makes good eye contact, language grossly intact, recent and remote memory grossly intact. Results & Data Results & Data ([facility]) Vital Signs (Past 12 Hours) Vital Signs Temp Pulse Pulse Resp BP BP Pulse Ox 08/12/22 08:00 91 H 20 96 08/12/22 07:19 36.8 C 165/67 H 08/12/22 07:18 90 14 100 08/12/22 07:00 79 19 96 08/12/22 07:45 08/12/22 08:00 99 H 08/12/22 06:30 88 17 118/60 95 08/12/22 05:00 95 H 18 148/71 H 94 08/12/22 04:00 36.8 C 85 18 135/61 97 08/12/22 02:29 99 H 19 134/65 96 08/12/22 01:29 96 H 19 140/70 97 08/12/22 00:19 87 08/12/22 00:30 36.8 C 95 H 18 160/74 H 99 08/11/22 23:03 95 H 18 132/88 99 O2 Del Method 08/12/22 08:00 Room Air 08/12/22 07:19 08/12/22 07:18 08/12/22 07:00 08/12/22 07:45 Room Air 08/12/22 08:00 08/12/22 06:30 Room Air 08/12/22 05:00 Room Air 08/12/22 04:00 08/12/22 02:29 Room Air 08/12/22 01:29 Room Air 08/12/22 00:19 08/12/22 00:30 Room Air 08/11/22 23:03 Room Air Laboratory Results Short CBC 08/11/22 Range/Units 17:21 WBC 12.43 H (4.8-10.8) K/ul Hgb 13.9 (12.0-16.0) g/dl Hct 43.2 (34.1-44.9) % Plt Count 503 H (130-400) K/uL BMP 08/11/22 08/11/22 08/12/22 17:21 23:07 02:51 Sodium 130 L 131 L 133 L Potassium 3.9 3.4 L 3.5 Chloride 99 105 110 H Carbon Dioxide 6 L* 10 L 11 L BUN 12 9 8 Creatinine 0.98 0.77 0.79 Glucose 505 H* 172 H 236 H Calcium 9.1 8.5 8.7 08/12/22 04:11 Sodium 135 L Potassium 3.7 Chloride 113 H Carbon Dioxide 13 L BUN 7 Creatinine 0.72 Glucose 200 H Calcium 8.6 Liver Function 08/11/22 Range/Units 17:21 Total Bilirubin 0.5 (0.2-1.0) mg/dl AST 7 L (13-39) U/L ALT 6 L (7-52) U/L Alkaline Phosphatase 106 H (34-104) U/L Albumin 4.3 (3.4-5.0) gm/dl Urine 08/12/22 Range/Units 00:06 Urine Color Yellow Urine Appearance Clear (Clear) Urine pH 5.0 (4.5-7.5) Ur Specific Sasser 1.021 (1.000-1.030) Urine Protein 1+ H (Negative) Urine Glucose (UA) 3+ H (Negative) Medications Administered Current Inpatient Medications Aspirin (Aspirin 81 Mg Ectab) 81 mg PO DAILY CLAUDIA Stop: 09/11/22 08:59 Last Admin: 08/12/22 07:21 Dose: 81 mg Dextrose (Dextrose 50% 50 Ml Syringe) 25 - 50 ml IV UD PRN; Protocol PRN Reason: Hypoglycemia Protocol Stop: 09/10/22 17:21 Enoxaparin Sodium (Enoxaparin Inj 40 Mg/0.4 Ml Syr) 40 mg SQ QAM CLAUDIA Stop: 09/11/22 08:59 Last Admin: 08/12/22 07:22 Dose: 40 mg Fluoxetine HCl (Fluoxetine Hcl 20 Mg Cap) 40 mg PO DAILY CLAUDIA Stop: 09/11/22 08:59 Last Admin: 08/12/22 07:22 Dose: 40 mg Glucagon (Glucagon For Inj 1 Mg Vial) 1 mg SQ UD PRN; Protocol PRN Reason: Hypoglycemia Protocol Stop: 09/10/22 17:21 Glucose (Glucose 40% Gel 15 Gm Tube) 15 - 30 gm PO UD PRN; Protocol PRN Reason: Hypoglycemia Protocol Stop: 09/10/22 17:21 Glucose (Glucose 10 Tab/Tube) 4 - 8 tab PO UD PRN; Protocol PRN Reason: Hypoglycemia Treatment Stop: 09/10/22 17:21 Insulin Human Regular 250 (units/ Sodium Chloride) 250 mls @ 2 mls/hr IV .Q24H CLAUDIA; Protocol Stop: 09/10/22 17:29 Last Titration: 08/12/22 08:45 Dose: 3.7 units/hr, 3.7 mls/hr Pantoprazole Sodium 40 mg/ (Syringe) 10 mls @ 5 mls/min IV BID CLAUDIA Stop: 09/10/22 22:34 Last Admin: 08/12/22 08:36 Dose: 5 mls/min Potassium Phosphate 18 mmol/ (Sodium Chloride) 506 mls @ 88 mls/hr IV ONE ONE Stop: 08/12/22 11:44 Last Admin: 08/12/22 06:03 Dose: 88 mls/hr Potassium Chloride/Sodium Chloride (1/2 Nss + 20meq Kcl 1000ml) 20 meq in 1,000 mls @ 125 mls/hr IV .Q8H CLAUDIA Stop: 09/11/22 07:44 Last Admin: 08/12/22 08:53 Dose: 125 mls/hr Insulin Aspart (Insulin Aspart Per Unit) 0 units SC ACHS CLAUDIA Stop: 09/11/22 07:29 Last Admin: 08/12/22 07:33 Dose: Not Given Levothyroxine Sodium (Levothyroxine Sodium 125 Mcg Tablet) 125 mcg PO DAILYBB [facility] Stop: 09/11/22 06:29 Last Admin: 08/12/22 05:31 Dose: 125 mcg Lisinopril (Lisinopril 5 Mg Tab) 5 mg PO DAILY [facility] Stop: 09/11/22 08:59 Last Admin: 08/12/22 07:23 Dose: 5 mg Miscellaneous (Carbohydrates For Hypoglycemia ) 15 - 30 gm PO UD PRN PRN Reason: Hypoglycemia Protocol Stop: 09/10/22 17:21 Miscellaneous (Icu Electrolyte Replacement Protocol) 1 each N/A BID@,18 [facility]; Protocol Stop: 08/19/22 05:59 Last Admin: 08/12/22 04:05 Dose: 1 each Miscellaneous Information (Pharmacy Glycemic Mgmt Consult) 1 each N/A UD PRN PRN Reason: Consult Stop: 09/10/22 22:34 Potassium Phosphate (Pot Phosphate Monobasic W/ Sod Tab) 1 tab PO QID [facility] Stop: 09/11/22 08:59 Last Admin: 08/12/22 07:23 Dose: 1 tab (1) DKA (diabetic ketoacidosis) Diabetes mellitus complication detail: without coma Diabetes mellitus type: type 1 Qualified Code(s): E10.10 - Type 1 diabetes mellitus with ketoacidosis without coma
--- NOTE | 2022-08-12 11:31 | Critical Care Progress Note ---
Date of Service August 12, 2022 Assessment & Plan (1) Depression: (2) COVID-19: (3) DKA (diabetic ketoacidosis): (4) Acidosis: (5) Leukocytosis: (6) Diabetic ketoacidosis associated with type 1 diabetes mellitus: (7) JENNY (acute kidney injury): Plan Reason Critically Ill: 67 YOF with DMI on home insulin pump. Admitted to ICU for DKA in the setting of COVID 19 infection and possible pump misuse as empty. Neuro - No acute needs CAM ICU: Negative Depression On fluoxetine Cardiac -HTN, HLD Continue with lisinopril Respiratory -COVID 19 Tachypnea resolved Saturating well on room air GI -GERD Continue PPI NPO RENAL/LYTES -AGAP Acidosis Follow renal indices with DKA and volume resuscitation Acid base status: AGAP Metabolic Acidosis likely from ketoacidosis Treat DKA - No caute needs at this time UA ordered on arrival ENDO -DKA, DMI, Presence of Insulin Pump DKA on admission with elevated glucose, AGAP, PH 7.1 and HCO3 7 Continue with insulin drip until anion gap closes Decreasing blood glucose no more than 100 in an hour Replace potassium IV when potassium level between 3.3-5.3 BMP every 4 hours Continue with IV fluids HEME - No acute needs ID -COVID 19, Luekocytosis Leukocytosis reactive to DKA COVID-19 positive Patient does not have respiratory symptoms, no need for any intervention --Prophylaxis VTE: Lovenox GI: Protonix Lines: Peripheral Diet: Start diabetic diet Plan: In/out: +2.5 L, urine output 700 mL Hypophosphatemia is being replaced with K-Phos Insulin drip has been bridged. We will continue with insulin drip for an hour and gradual titrated off DC IV fluids once insulin drip is off There has been issues with multiple admissions in the past for DKA. Has had multiple education on the previous admissions. We will get case management involved again Once the patient is on the insulin drip she can be downgraded to medical floor Please note the above document was generated using voice recognition software. It may contain grammatical, syntax or spelling errors.Any formal questions or concerns about the content, text or information contained within the body of this dictation should be directly addressed to the provider for clarification. Admission and Anticipated Discharge Date Admission Date: August 11, 2022 Subjective Patient seen and examined at bedside. No acute distress, no dressings overnight Denies any chest pain, no shortness of breath Was able to tolerate oral diet early in the morning Has been afebrile No dysuria Review of Systems Review of Systems: All systems reviewed & are unremarkable except as noted in Subjective Physical Exam Physical Exam: Constitutional: No acute distress HEENT: EOMI, PERRLA Respiratory system: Good air entry bilaterally, no wheeze, rhonchi, no crackles CVS: S1-S2 positive Abdomen: Soft, nontender, nondistended, positive bowel sounds x4 Extremities: +2 pulses bilaterally radialis/ dorsalis pedis, no cyanosis, no edema Neuro: Awake alert oriented x3 Psych: Normal mood and affect G/U: No Rahman Skin: no rashes, warm and dry Lymphatic: no cervical or axillary lymphadenopathy Results & Data Results & Data ([facility]) Vital Signs (Past 12 Hours) Vital Signs Temp Pulse Pulse Resp BP BP Pulse Ox 08/12/22 08:00 91 H 20 96 08/12/22 07:19 36.8 C 165/67 H 08/12/22 07:18 90 14 100 08/12/22 07:00 79 19 96 08/12/22 07:45 08/12/22 08:00 99 H 08/12/22 06:30 88 17 118/60 95 08/12/22 05:00 95 H 18 148/71 H 94 08/12/22 04:00 36.8 C 85 18 135/61 97 08/12/22 02:29 99 H 19 134/65 96 08/12/22 01:29 96 H 19 140/70 97 08/12/22 00:19 87 08/12/22 00:30 36.8 C 95 H 18 160/74 H 99 O2 Del Method 08/12/22 08:00 Room Air 08/12/22 07:19 08/12/22 07:18 08/12/22 07:00 08/12/22 07:45 Room Air 08/12/22 08:00 08/12/22 06:30 Room Air 08/12/22 05:00 Room Air 08/12/22 04:00 08/12/22 02:29 Room Air 08/12/22 01:29 Room Air 08/12/22 00:19 08/12/22 00:30 Room Air Laboratory Results 08/11/22 17:21 Coding Level of Care Code 08852 Subseq Hosp Care Lvl 3 Diagnoses Depression F32.A COVID-19 U07.1 DKA (diabetic ketoacidosis) E10.10 Diabetes mellitus complication detail: without coma Diabetes mellitus type: type 1 Acidosis E87.20 Leukocytosis D72.829 Leukocytosis type: unspecified Diabetic ketoacidosis associated with type 1 diabetes mellitus E10.10 JENNY (acute kidney injury) N17.9 (1) DKA (diabetic ketoacidosis) Diabetes mellitus complication detail: without coma Diabetes mellitus type: type 1 Qualified Code(s): E10.10 - Type 1 diabetes mellitus with ketoacidosis without coma (2) Leukocytosis Leukocytosis type: unspecified Qualified Code(s): D72.829 - Elevated white blood cell count, unspecified
[2022-08-12 11:40] LABS: BUN Creatinine Ratio 7.9 (10-20); Calcium 8.3 mg/dl (8.5-10.1); Creatinine Clr Calc Pharmacy 89.7 ml/min; Est GFR (African American) 107.6 ml/min; Est GFR (Non-African American) 92.8 ml/min; Magnesium 2.1 mg/dl (1.7-2.4); Phosphorus 2.3 mg/dl (2.5-4.9); Potassium 3.7 mmol/L (3.5-5.1)
--- NOTE | 2022-08-12 14:51 | Pharmacy Report ---
Pharmacy Glycemic Short Note 2 - Date of Service August 12, 2022 - Glycemic Short BSG Results (Last 24 hours): 08/11/22 08/11/22 08/11/22 16:21 16:42 17:21 Glucose 505 H* POC Glucose 436 H* 511 H* 08/11/22 08/11/22 08/11/22 18:54 20:07 21:07 Glucose POC Glucose 412 H* 272 H 228 H 08/11/22 08/11/22 08/11/22 22:06 22:59 23:07 Glucose 172 H POC Glucose 187 H 182 H 08/12/22 08/12/22 08/12/22 00:15 01:27 02:28 Glucose POC Glucose 221 H 227 H 234 H 08/12/22 08/12/22 08/12/22 02:51 03:30 04:11 Glucose 236 H 200 H POC Glucose 204 H 08/12/22 08/12/22 08/12/22 05:35 06:06 06:19 Glucose POC Glucose 150 H 130 H 119 H 08/12/22 08/12/22 08/12/22 06:37 06:48 07:02 Glucose POC Glucose 117 H 114 H 121 H 08/12/22 08/12/22 08/12/22 07:29 08:39 09:38 Glucose POC Glucose 151 H 214 H 188 H 08/12/22 08/12/22 08/12/22 10:43 10:49 11:38 Glucose 165 H POC Glucose 152 H 160 H 08/12/22 08/12/22 12:49 13:57 Glucose POC Glucose 224 H 281 H OUTPATIENT ANTIDIABETIC REGIMEN: * Novolog via Tandem T-slim insulin pump * Basal: 2.5 units x 24 hours * Bolus: ICR 3, CF 10, Target 110 mg/dL * HbA1c = 13.1 % (08/11/22) insulin settings taken from last admission 06/07/22 ASSESSMENT: * Patient known to the glycemic service presenting again with DKA and started on an insulin infusion. Insulin pump was removed upon admission per RN. * This morning the patient was eating and labs/BSG improved such that transition was possible after discussion with the provider. * Dextrose was removed from the fluids at the time of transition initiation and discontinued altogether ~1430. * Insulin infusion transition can be challenging when a patient is also eating. Therefore insulin infusion was discontinued after a 6 hour SQ basal overlap period. Will monitor need for additional basal insulin. PLAN FOR INPATIENT GLYCEMIC CONTROL: * Hold outpatient oral diabetes medications * Basal insulin * Lantus 35 units SQ X 1 @ 0800 * Bolus insulin * NovoLog per scale ACHS or Q6hrs while NPO and overnight checks * Goal Range: Low 110 mg/dL - High 140 mg/dL * Correction Factor: 15 mg/dL/unit * Nutritional / Prandial insulin per carb ratio of 1 unit per 6 grams CHO consumed
[2022-08-12 15:26] LABS: BUN Creatinine Ratio 9.3 (10-20); Calcium 8.4 mg/dl (8.5-10.1); Creatinine Clr Calc Pharmacy 65.7 ml/min; Est GFR (Non-African American) 69.9 ml/min; Phosphorus 2.3 mg/dl (2.5-4.9); Potassium 3.8 mmol/L (3.5-5.1)
[2022-08-12 19:16] LABS: BUN Creatinine Ratio 12.4 (10-20); Calcium 8.2 mg/dl (8.5-10.1); Creatinine Clr Calc Pharmacy 63.5 ml/min; Est GFR (African American) 77.7 ml/min; Est GFR (Non-African American) 67.1 ml/min; Magnesium 1.8 mg/dl (1.7-2.4); Phosphorus 2.5 mg/dl (2.5-4.9); Potassium 3.7 mmol/L (3.5-5.1)
[2022-08-13] MEDS: INSULIN ASPART PER UNIT SC SCH ×6 (00:28→21:40)
[2022-08-13] MEDS: LEVOTHYROXINE SODIUM 125 MCG TABLET PO SCH (05:37)
[2022-08-13] MEDS ORDERED: PANTOprazole 40 MG in SYRINGE 0 ML IV SCH (09:00)
[2022-08-13] MEDS: ENOXAPARIN INJ 40 MG/0.4 ML SYR SQ SCH (09:33)
[2022-08-13] MEDS: ASPIRIN 81 MG ECTAB PO SCH (09:34)
[2022-08-13] MEDS: PANTOprazole 40 MG TAB PO SCH (09:34)
[2022-08-13] MEDS: POT PHOSPHATE MONOBASIC W/ SOD TAB PO SCH ×4 (09:34→21:46)
[2022-08-13] MEDS: lisinopril 5 MG TAB PO SCH (09:34)
[2022-08-13] MEDS: FLUoxetine HCL 20 MG CAP PO SCH (09:35)
[2022-08-13] MEDS: LANTUS PER UNIT CHARGE SQ SCH (09:51)
[2022-08-13 11:24] LABS: Albumin Globulin Ratio 1.4 (0.9-2); Albumin Level 3.3 gm/dl (3.4-5.0); BUN Creatinine Ratio 12.5 (10-20); Bilirubin,Total 0.5 mg/dl (0.2-1.0); Calcium 8.3 mg/dl (8.5-10.1); Creatinine Clr Calc Pharmacy 88.3 ml/min; Est GFR (Non-African American) 92.3 ml/min; Globulin 2.3 gm/dl (2.5-4.0); Potassium 3.6 mmol/L (3.5-5.1); Total Protein 5.6 gm/dl (6.0-8.3)
--- NOTE | 2022-08-13 13:33 | Pharmacy Report ---
Pharmacy Glycemic Short Note 2 - Date of Service August 13, 2022 - Glycemic Short BSG Results (Last 24 hours): 08/12/22 08/12/22 08/12/22 13:57 14:37 16:45 Glucose 257 H POC Glucose 281 H 202 H 08/12/22 08/12/22 08/12/22 18:37 20:28 23:35 Glucose 327 H* POC Glucose 263 H 236 H 08/13/22 08/13/22 08/13/22 04:11 08:13 10:22 Glucose 374 H* POC Glucose 92 171 H 08/13/22 11:42 Glucose POC Glucose 277 H OUTPATIENT ANTIDIABETIC REGIMEN: * Novolog via Tandem T-slim insulin pump * Basal: 2.5 units x 24 hours * Bolus: ICR 3, CF 10, Target 110 mg/dL * HbA1c = 13.1 % (08/11/22) insulin settings taken from last admission 06/07/22 ASSESSMENT: 08/13: * BSGs 364-471-05-171mg/dL. Patient received 35 units of basal yesterday prior to the insulin drip being d/c'd. * Tolerating diet, other stressors stable. * Lantus increased this AM to 37 units (typically receives 35-40 units while admitted). Novolog tightened to 12/4 with overnight checks. 08/12: * Patient known to the glycemic service presenting again with DKA and started on an insulin infusion. Insulin pump was removed upon admission per RN. * This morning the patient was eating and labs/BSG improved such that transition was possible after discussion with the provider. * Dextrose was removed from the fluids at the time of transition initiation and discontinued altogether ~1430. * Insulin infusion transition can be challenging when a patient is also eating. Therefore insulin infusion was discontinued after a 6 hour SQ basal overlap period. Will monitor need for additional basal insulin. PLAN FOR INPATIENT GLYCEMIC CONTROL: * Hold outpatient oral diabetes medications * Basal insulin * Lantus 37 units SQ daily * Bolus insulin * NovoLog per scale ACHS or Q6hrs while NPO and overnight checks * Goal Range: Low 110 mg/dL - High 140 mg/dL * Correction Factor: 12 mg/dL/unit * Nutritional / Prandial insulin per carb ratio of 1 unit per 4 grams CHO consumed
--- NOTE | 2022-08-13 16:59 | Hospitalist Progress Note ---
Date of Service August 13, 2022 Assessment & Plan (1) DKA (diabetic ketoacidosis): Plan: per Dr. Willard's notes with addendum: Pt presents with her fourth episode of DKA in the last few months. There has been concern for noncompliance as a contributing factor. A1C is 13 reflective of poor overall control. Pt did test positive for COVID in the ED but denies any significant symptoms prior to today. Acidosis is improving with high anion gap closed. She is now eating and transitioning to basal bolus insulin. Had some cereal this am. Phosphorus is being replaced. Will plan to transfer up to PCU when off the insulin drip and fluids, likely later this afternoon. 08/13 BSG is elevated again this afternoon, 374 Insulin sliding scale adjusted Also on insulin Lantus Pharmacy glycemic control service, peer educator also on board Possible worsening depression contributing to patient's suboptimal adherence to insulin therapy Will consult psychiatry service (2) Presence of insulin pump: Plan: multiple episodes of noncompliance with the pump despite being taught on how to use this multiple times. There is a question of worsening depression since losing her mother this summer and one of her daughters is estranged. Lives with grandson, who is attending college locally and unable to care for her at home. Requested that OOA be involved-CM is looking into this. 08/13 Management per above (3) Electrolyte abnormality: Plan: Improved (4) Tachypnea: Plan: Due to acidosis-resolved (5) COVID-19: Plan: Isolation precautions Patient's oxygen saturation still 96% and above Chest x-ray: No signs of pneumonia discussed with patient regarding starting Remdesivir therapy given her risk factors for disease progression risks and benefits discussed, including kidney and liver injury, etc. Patient verbalized understanding and agreement, will start remdesivir today Not hypoxic so would not start dexamethasone at this time (6) GERD (gastroesophageal reflux disease): Plan: improved continue Protonix (7) Hypothyroidism: Plan: chronic, stable. Cont levothyroxine at current dose. (8) HTN (hypertension): Plan: chronic, slightly elevated this am. She continues on lisinopril 5mg per home regimen. Will cont to monitor for now. (9) Depression: Plan: May be uncontrolled. Patient denies feeling more depressed lately On fluoxetine and trazodone Psychiatry service Consulted (10) DVT prophylaxis: Plan: Lovenox Full Code Disposition Pending plan of care discussed with patient in detail and at length all questions answered She is understanding, agreeable, comfortable with the plan of care Admission and Anticipated Discharge Date Admission Date: August 11, 2022 Subjective ff up for DKA, COVID 19 infection, etc seen resting in bed, comfortable states she feels ok overall, just tired no chest pain, dyspnea, palpitations, dizziness no headache, dizziness, abdominal pain, nausea or vomiting, problems with urination or bowel movement Denies any wounds No other symptoms Review of Systems Review of Systems: all noted and negative except for above Physical Exam Physical Exam: General- oriented x 3, not in distress, speaks in sentences with no effort or accessory muscle use Eyes- anicteric Neck- no JVD Lungs- clear breath sounds bilaterally, no rales/wheezes Heart- normal rate, regular rhythm; no murmurs Abdomen- normal bowel sounds, nondistended, soft, nontender Extremities- trace pretibial edema, no calf tenderness Neuro- alert, oriented x 3; no gross focal neurologic deficits Skin- warm & dry Results & Data Results & Data ([facility]) Vital Signs (Past 12 Hours) Vital Signs Temp Pulse Resp BP Pulse Ox O2 Del Method 08/13/22 09:33 Room Air 08/13/22 08:16 36.6 C 68 17 131/73 98 Room Air all noted and reviewed including below (1) DKA (diabetic ketoacidosis) Diabetes mellitus complication detail: without coma Diabetes mellitus type: type 1 Qualified Code(s): E10.10 - Type 1 diabetes mellitus with ketoacidosis without coma
[2022-08-13] MEDS ORDERED: REMDESIVIR 200 MG in SODIUM CHLORIDE 0.9% 210 ML IV ONE (20:00)
[2022-08-13] MEDS ORDERED: traZODone HCL 50 MG TAB PO PRN (23:07)
[2022-08-14] MEDS: INSULIN ASPART PER UNIT SC SCH ×6 (00:30→21:38)
[2022-08-14] MEDS: LEVOTHYROXINE SODIUM 125 MCG TABLET PO SCH (05:40)
[2022-08-14] MEDS: lisinopril 5 MG TAB PO SCH (08:29)
[2022-08-14] MEDS: POT PHOSPHATE MONOBASIC W/ SOD TAB PO SCH ×4 (08:29→20:10)
[2022-08-14] MEDS: ENOXAPARIN INJ 40 MG/0.4 ML SYR SQ SCH (08:30)
[2022-08-14] MEDS: FLUoxetine HCL 20 MG CAP PO SCH (08:30)
[2022-08-14] MEDS: PANTOprazole 40 MG TAB PO SCH (08:30)
[2022-08-14] MEDS: ASPIRIN 81 MG ECTAB PO SCH (08:30)
[2022-08-14 08:56] LABS: Albumin Globulin Ratio 1.5 (0.9-2); Albumin Level 3.2 gm/dl (3.4-5.0); BUN Creatinine Ratio 17.6 (10-20); Bilirubin,Total 0.3 mg/dl (0.2-1.0); Calcium 8.6 mg/dl (8.5-10.1); Creatinine Clr Calc Pharmacy 110.9 ml/min; Est GFR (African American) 115.3 ml/min; Est GFR (Non-African American) 99.5 ml/min; Globulin 2.2 gm/dl (2.5-4.0); Magnesium 1.9 mg/dl (1.7-2.4); Phosphorus 3.9 mg/dl (2.5-4.9); Potassium 3.1 mmol/L (3.5-5.1); Total Protein 5.4 gm/dl (6.0-8.3)
[2022-08-14] MEDS ORDERED: POTASSIUM CHLORIDE CRTAB 20 MEQ TABCR PO STA (09:31)
[2022-08-14] MEDS: LANTUS PER UNIT CHARGE SQ SCH (09:45)
--- NOTE | 2022-08-14 11:49 | Psychiatric Consultation ---
Date of Consultation August 14, 2022 Impression / Recommendations Impression Madyson Alba is a 67 yo woman with a history of anxiety and depression admitted medically. Diagnostically consistent with mild symptoms of depression and anxiety likely adjustment disorder with mixed anxiety and depressed moodin the context of recent of her mother and taking on additional responsibilities helping to support her grandson. Her mood symptoms do not seem to be contributing to her recent frequent episodes of DKA but she is agreeable to increasing her dose of fluoxetine to 60mg daily and considering outpatient therapy in case any recent stressors have been contributing to her health issue s. Acute risk of self-harm is low given denial of current SI, many strong protective factors, no history of prior attempts and no access to lethal means. Reviewed medication treatment options. Discussed risks, benefits and alternatives. Patient would like to increase and consented to changing to fluoxetine 60mg daily for depression and anxiety. Reviewed side effects including but not limited to: GI symptoms, YANES. (1) DKA (diabetic ketoacidosis): Diabetes mellitus complication detail: without coma Diabetes mellitus type: type 1 Qualified Code(s): E10.10 - Type 1 diabetes mellitus with ketoacidosis without coma (2) COVID-19: (3) Adjustment disorder with mixed anxiety and depressed mood: Plan -Increase fluoxetine to 60mg daily -Encouragement involvement of music educator -psychiatric liason will provide resources for local mental health services and attempt to establish outpatient therapy Risk Factors Assessment Do You Have Access To A Gun?: No Telehealth Telehealth Options: Telephone only For the duration of the visit, provider was performing the assessment from: The same facility as the patient After establishing a telemedicine visit, patient was: Patient was verified with two unique identifiers, Patient/authorized rep acknowledged consent and u nderstanding and Gave permission to continue telehealth session Total Time Spent (minutes): 25 Psych History Identifying Data 67 yo woman with history of anxiety, hypothyroidism, HLD, type 1 DM admitted medically for DKA and found to be COVID+. Psychiatry was consulted given concern for possible contribution of depression leading to frequent episodes of DKA. Chief Complaint "I wonder if my mother's has been affecting me more than I realized or am I doing something wrong with my insulin therapy because I thought I was doing it correctly". History of Present Illness Madyson Alba speaks with me via telemedicine phone call as she is currently COVID+ with isolation precautions. She denies any significant mood symptoms but does note some recent stressors including her mother's 7 months ago, social isolation, losing her job at the start of [employer] and caring for her 18yo grandson who moved in with her to finish high school. She acknowledges that maybe some of these stressors/changes especially the of her mom may have impacted her more than she's realized as she agrees it is unusual that she's had so many episodes of DKA this fall. She doesn't feel she's had more difficulty managing her diabetes but notes that her sugars have been higher since her mother but she's not sure why, it's been a slow progression of her sugars worsening. She notes her life has been the same except 7 months ago her mother . She doesn't know how much that affected her as she feels she's been coping well. However, she denies feeling that she's been unmotivated to care for herself or not cared about her medical needs noting that she has been using her pump and counting carbs and eating her normal diet with no recent changes. She feels satisfaction with her life so far though does at times experience passive SI "when it's my time to go" as she feels she's accomplished the important things in life such as raising children, having a good career and having grandchildren. PHQ-9 score of 7 and Q9 score of 1 for passive SI. She has no history of suicide attempts, denies any current nor history of active SI and notes many protective factors and reasons for living including her family and her oriental orthodox beliefs. She has been on fluoxetine for about fifteen or twenty years and has been taking it consistently and she finds it helps her feel more calm but thinks the dose hasn't been changed in many years. She's very open to trying a higher dose to see if this offers any additional benefit for her mood. Past Psychiatric History Outpatient Services: hx therapy many years ago via psychodynamic modality Previous Psych Admissions: never Do You Have Access To A Gun?: No History of Previous Suicide Attempt: No Allergies Allergy/AdvReac Type Severity Reaction Status Date / Time dextromethorphan Allergy Severe Difficulty Verified 08/07/22 15:41 Breathing doxylamine Allergy Severe Difficulty Verified 08/07/22 15:41 Breathing pseudoephedrine Allergy Severe Difficulty Verified 08/07/22 15:41 Breathing glyburide Allergy Intermediate RASH Verified 08/07/22 15:41 tetanus toxoid, adsorbed Allergy Intermediate painful Verified 08/07/22 15:41 joints Ethanol Allergy Severe Difficulty Uncoded 08/07/22 15:41 Breathing Home Medications Medication Instructions Recorded Confirmed Type aspirin 81 mg tablet,delayed 81 mg PO DAILY 01/29/21 08/11/22 History release (Adult Low Dose Aspirin) diphenhydramine HCl 25 mg capsule 25 mg PO HS PRN Sleep 01/29/21 08/11/22 History fluocinonide 0.05 % topical 1 applic topical DAILY 01/29/21 08/11/22 History solution fluoxetine 40 mg capsule 40 mg PO DAILY 01/29/21 08/11/22 History levothyroxine 125 mcg tablet 125 mcg PO DAILY 01/29/21 08/11/22 History Dexcom G6 Senior International Tax Manager (blood-glucose #9 ea 03/27/21 08/11/22 Rx meter,continuous) Dexcom G6 Transmitter #1 ea 03/27/21 08/11/22 Rx (blood-glucose transmitter) lansoprazole 30 mg capsule,delayed 30 mg PO DAILYBB 06/03/21 08/11/22 History release zolpidem 10 mg tablet 10 mg PO HS PRN Sleep 06/03/21 08/11/22 History OneTouch Ultra Test (blood sugar #400 ea 07/10/21 08/11/22 Rx diagnostic) blood-glucose meter (OneTouch #1 ea 03/20/22 08/11/22 Rx Ultra2 Meter kit) simvastatin 10 mg tablet 10 mg PO DAILY 05/06/22 08/11/22 History trazodone 50 mg tablet 50 mg PO HS 05/06/22 08/11/22 History sodium di- and 1 tab PO QID #16 tabs 06/10/22 08/11/22 Rx monophosphate-potassium phos monobasic 250 mg tablet (Phospha 250 Neutral) lisinopril 5 mg tablet 5 mg PO DAILY 07/18/22 08/11/22 History insulin aspart U-100 100 unit/mL See Rx Instructions continuous 07/30/22 08/11/22 Rx subcutaneous solution (Novolog subcutaneous infusion DAILY #90 mL U-100 Insulin aspart) Personal History Living Arrangements: Home Highest Grade Completed: High School Graduate Employment Status: Retired Beliefs That Will Affect Care: None Patient History Medical History DKA (diabetic ketoacidosis) GERD (gastroesophageal reflux disease) HTN (hypertension) Hypothyroidism Mixed hyperlipidemia Presence of insulin pump Uncontrolled type 1 diabetes mellitus with hyperglycemia Surgical History History of cholecystectomy 1986 History of hysterectomy Non cancerous fibroid removal of 6 lbs History of shoulder surgery History of tonsillectomy Family History Grandmother (Maternal) Diabetes Mother Hypertension Heart disease Grandmother (Paternal) Diabetes Social History Smoking Status: Never smoker Second Hand Exposure: No; Hx Alcohol Use: No Hx Substance Use: No Preferred Language: [place] Communication Ability: Unable Gas Combustion Engineer Required: No Beliefs That Will Affect Care: None marital status: Single Current Living Situation: Family Current Living Situation Comment: Grandson Feels Safe at Home: Yes Assistive Devices: CPAP Physical Exam Psychiatric: Orientation: alert and oriented x 3 Speech: normal rate/rhythm/volume of speech Mood: no depressed mood and no anxious mood Thought Process: goal directed thought process Thought Content: reality based without delusions Suicidal Thoughts: denies suicidal thoughts Homicidal Thoughts: denies homicidal thoughts Hallucinations: no auditory hallucinations and no visual hallucinations Cognition: recent memory grossly intact, remote memory grossly intact, attention grossly intact and language grossly intact Insight: + fair insight Judgement: + fair judgement Vital Signs (Past 24 Hours): Last Vital Signs Temp 36.6 C 08/14/22 08:26 Pulse 67 08/14/22 08:26 Resp 24 08/14/22 08:26 BP 114/65 08/14/22 08:26 Pulse Ox 96 08/14/22 08:26 O2 Del Method 08/14/22 08:26 Review of Systems All systems reviewed & are unremarkable except as noted in HPI & below Results & Data (PSY) Laboratory Results normal Na+ Diagnostic Findings EKG QTc <500ms Medications Administered Aspirin (Aspirin 81 Mg Ectab) 81 mg PO DAILY CLAUDIA Stop: 09/11/22 08:59 Last Admin: 08/14/22 08:30 Dose: 81 mg Documented By: [facility] Admin: 08/13/22 09:34 Dose: 81 mg Documented By: Admin: 08/12/22 07:21 Dose: 81 mg Documented By: YUNG Enoxaparin Sodium (Enoxaparin Inj 40 Mg/0.4 Ml Syr) 40 mg SQ QAM CLAUDIA Stop: 09/11/22 08:59 Last Admin: 08/14/22 08:30 Dose: 40 mg Documented By: Admin: 08/13/22 09:33 Dose: 40 mg Documented By: Admin: 08/12/22 07:22 Dose: 40 mg Documented By: YUNG Fluoxetine HCl (Fluoxetine Hcl 20 Mg Cap) 40 mg PO DAILY CLAUDIA Stop: 09/11/22 08:59 Last Admin: 08/14/22 08:30 Dose: 40 mg Documented By: Admin: 08/13/22 09:35 Dose: 40 mg Documented By: Admin: 08/12/22 07:22 Dose: 40 mg Documented By: YUNG Insulin Aspart (Insulin Aspart Per Unit) 0 units SC ACHS CLAUDIA Stop: 09/11/22 11:44 Last Admin: 08/14/22 09:45 Dose: 18 units Documented By: ROSANGELA Co-signed By: SILVANA Admin: 08/13/22 21:40 Dose: 5 units Documented By: DOMINGO Co-signed By: CHLOE Admin: 08/13/22 17:57 Dose: 10 units Documented By: ROSANGELA Co-signed By: SILVANA Admin: 08/13/22 12:41 Dose: 17 units Documented By: ROSANGELA Co-signed By: SILVANA Admin: 08/13/22 09:50 Dose: 15 units Documented By: ROSANGELA Co-signed By: SILVANA Admin: 08/12/22 22:46 Dose: 9 units Documented By: CHLOE Co-signed By: DOMINGO Admin: 08/12/22 17:21 Dose: 11 units Documented By: YUNG Co-signed By: MARIA ELENA Admin: 08/12/22 12:43 Dose: 7 units Documented By: YUNG Co-signed By: DEMETRI Insulin Glargine (Lantus Per Unit Charge) 37 units SQ DAILY CLAUDIA Stop: 09/12/22 08:59 Last Admin: 08/14/22 09:45 Dose: 37 units Documented By: ROSANGELA Co-signed By: SILVANA Admin: 08/13/22 09:51 Dose: 37 units Documented By: ROSANGELA Co-signed By: SILVANA Levothyroxine Sodium (Levothyroxine Sodium 125 Mcg Tablet) 125 mcg PO DAILYBB [facility] Stop: 09/11/22 06:29 Last Admin: 08/14/22 05:40 Dose: 125 mcg Documented By: Admin: 08/13/22 05:37 Dose: 125 mcg Documented By: Admin: 08/12/22 05:31 Dose: 125 mcg Documented By: MARCO Lisinopril (Lisinopril 5 Mg Tab) 5 mg PO DAILY CLAUDIA Stop: 09/11/22 08:59 Last Admin: 08/14/22 08:29 Dose: 5 mg Documented By: Admin: 08/13/22 09:34 Dose: 5 mg Documented By: Admin: 08/12/22 07:23 Dose: 5 mg Documented By: YUNG Pantoprazole Sodium (Pantoprazole 40 Mg Tab) 40 mg PO DAILY CLAUDIA Stop: 09/12/22 08:59 Last Admin: 08/14/22 08:30 Dose: 40 mg Documented By: Admin: 08/13/22 09:34 Dose: 40 mg Documented By: ROSANGELA Potassium Phosphate (Pot Phosphate Monobasic W/ Sod Tab) 1 tab PO QID CLAUDIA Stop: 09/11/22 08:59 Last Admin: 08/14/22 08:29 Dose: 1 tab Documented By: Admin: 08/13/22 21:46 Dose: 1 tab Documented By: Admin: 08/13/22 17:50 Dose: 1 tab Documented By: Admin: 08/13/22 12:37 Dose: 1 tab Documented By: Admin: 08/13/22 09:34 Dose: 1 tab Documented By: Admin: 08/12/22 22:47 Dose: 1 tab Documented By: Admin: 08/12/22 17:19 Dose: 1 tab Documented By: Admin: 08/12/22 12:44 Dose: 1 tab Documented By: Admin: 08/12/22 07:23 Dose: 1 tab Documented By: YUNG Trazodone HCl (Trazodone Hcl 50 Mg Tab) 50 mg PO HS PRN PRN Reason: insomnia Stop: 09/13/22 20:59 Last Admin: 08/14/22 00:19 Dose: 50 mg Documented By: PLF Coding Level of Care Code 21839 Inpt Consult Level 3 Diagnoses DKA (diabetic ketoacidosis) E10.10 Diabetes mellitus complication detail: without coma Diabetes mellitus type: type 1 COVID-19 U07.1 Adjustment disorder with mixed anxiety and depressed mood F43.23
--- NOTE | 2022-08-14 13:30 | Pharmacy Report ---
Pharmacy Glycemic Short Note 2 - Date of Service August 14, 2022 - Glycemic Short BSG Results (Last 24 hours): 08/13/22 08/13/22 08/14/22 17:19 20:24 00:28 Glucose POC Glucose 147 H 199 H 97 08/14/22 08/14/22 08/14/22 04:42 08:06 08:26 Glucose 171 H POC Glucose 156 H 175 H 08/14/22 12:39 Glucose POC Glucose 272 H OUTPATIENT ANTIDIABETIC REGIMEN: * Novolog via Tandem T-slim insulin pump * Basal: 2.5 units x 24 hours * Bolus: ICR 3, CF 10, Target 110 mg/dL * HbA1c = 13.1 % (08/11/22) insulin settings taken from last admission 06/07/22 ASSESSMENT: 08/14: * Blood sugars rising significantly from breakfast to lunch, uses ICR of 3 on pump, will trial tightening CR to 3 and CF to 10. * If patient experiences any hypoglycemia, will tighten NovoLog parameters with breakfast only. * Fasting blood sugar at goal, no changes in basal insulin. 08/13: * BSGs 052-446-65-171mg/dL. Patient received 35 units of basal yesterday prior to the insulin drip being d/c'd. * Tolerating diet, other stressors stable. * Lantus increased this AM to 37 units (typically receives 35-40 units while admitted). Novolog tightened to 12/4 with overnight checks. 08/12: * Patient known to the glycemic service presenting again with DKA and started on an insulin infusion. Insulin pump was removed upon admission per RN. * This morning the patient was eating and labs/BSG improved such that transition was possible after discussion with the provider. * Dextrose was removed from the fluids at the time of transition initiation and discontinued altogether ~1430. * Insulin infusion transition can be challenging when a patient is also eating. Therefore insulin infusion was discontinued after a 6 hour SQ basal overlap period. Will monitor need for additional basal insulin. PLAN FOR INPATIENT GLYCEMIC CONTROL: * Hold outpatient insulin pump * Basal insulin * Lantus 37 units SQ daily * Bolus insulin * NovoLog per scale ACHS or Q6hrs while NPO * Goal Range: Low 110 mg/dL - High 140 mg/dL * Correction Factor: 10 mg/dL/unit * Nutritional / Prandial insulin per carb ratio of 1 unit per 3 grams CHO consumed
--- NOTE | 2022-08-14 17:55 | Hospitalist Progress Note ---
Date of Service August 14, 2022 Assessment & Plan (1) DKA (diabetic ketoacidosis): Plan: per Dr. Willard's notes with addendum: Pt presents with her fourth episode of DKA in the last few months. There has been concern for noncompliance as a contributing factor. A1C is 13 reflective of poor overall control. Pt did test positive for COVID in the ED but denies any significant symptoms prior to today. Acidosis is improving with high anion gap closed. She is now eating and transitioning to basal bolus insulin. Had some cereal this am. Phosphorus is being replaced. Will plan to transfer up to PCU when off the insulin drip and fluids, likely later this afternoon. 08/13 BSG is elevated again this afternoon, 374 Insulin sliding scale adjusted Also on insulin Lantus Pharmacy glycemic control service, concrete block molder also on board Possible worsening depression contributing to patient's suboptimal adherence to insulin therapy Will consult psychiatry service 08/14 BSG 77 --> 272 Continue insulin regimen Discussed with concrete block molder Discussed with patient regarding SNF, she will be thinking about this Discussed with psychiatrist, fluoxetine to be increased (2) Presence of insulin pump: Plan: multiple episodes of noncompliance with the pump despite being taught on how to use this multiple times. There is a question of worsening depression since losing her mother this summer and one of her daughters is estranged. Lives with grandson, who is attending college locally and unable to care for her at home. Requested that [facility] be involved- is looking into this. 08/14 Management per above (3) Electrolyte abnormality: Plan: Improved (4) Tachypnea: Plan: Due to acidosis-resolved (5) COVID-19: Plan: Isolation precautions Patient's oxygen saturation still 96% and above Chest x-ray: No signs of pneumonia discussed with patient regarding starting Remdesivir therapy given her risk factors for disease progression risks and benefits discussed, including kidney and liver injury, etc. Patient verbalized understanding and agreement, will start remdesivir today Not hypoxic so would not start dexamethasone at this time 08/14 Remains on room air Renal function, LFTs okay Continue remdesivir day #2 (6) GERD (gastroesophageal reflux disease): Plan: improved continue Protonix (7) Hypothyroidism: Plan: chronic, stable. Cont levothyroxine at current dose. (8) HTN (hypertension): Plan: chronic, slightly elevated this am. She continues on lisinopril 5mg per home regimen. Will cont to monitor for now. 08/14 Blood pressure at goal (9) Depression: Plan: May be uncontrolled. Patient denies feeling more depressed lately On fluoxetine and trazodone Psychiatry service Consulted 08/14 Discussed with psychiatry service [place] to have mild worsening of depression Fluoxetine increased to 60 mg Will be referred to outpatient psychiatry service for continued care (10) DVT prophylaxis: Plan: Lovenox Full Code Disposition Pending May benefit from short-term stay at rehab/skilled for insulin management, blood Leukos control Patient will be thinking about this, and will let me know tomorrow plan of care discussed with patient in detail and at length all questions answered She is understanding, agreeable, comfortable with the plan of care Admission and Anticipated Discharge Date Admission Date: August 11, 2022 Subjective Follow-up for DKA, type 1 diabetes, COVID-19 infection, etc. Seen sitting up in bed, comfortable, not in distress, on room air States she feels fine overall Denies cough, shortness of breath, chest pain, leg pain Nausea vomiting Weakness improving No other symptoms Review of Systems Review of Systems: all noted and negative except for above Physical Exam Physical Exam: General- oriented x 3, not in distress, speaks in sentences with no effort or accessory muscle use Eyes- anicteric Neck- no JVD Lungs- clear BS bilaterally, no rales/wheezes Heart- normal rate, regular rhythm; no murmurs Abdomen- normal bowel sounds, nondistended, soft, nontender Extremities- no pretibial edema, no calf tenderness Neuro- alert, oriented x 3; no gross focal neurologic deficits Skin- warm & dry Results & Data Results & Data ([facility]) Vital Signs (Past 12 Hours) Vital Signs Temp Pulse Resp BP Pulse Ox O2 Del Method 08/14/22 17:27 36.6 C 76 18 105/68 96 Room Air 08/14/22 08:25 Room Air 08/14/22 08:26 36.6 C 67 24 114/65 96 Room Air all noted and reviewed including below (1) DKA (diabetic ketoacidosis) Diabetes mellitus complication detail: without coma Diabetes mellitus type: type 1 Qualified Code(s): E10.10 - Type 1 diabetes mellitus with ketoacidosis without coma
[2022-08-14] MEDS: REMDESIVIR 100 MG in SODIUM CHLORIDE 0.9% 230 ML IV SCH (20:09)
[2022-08-14] MEDS: DEXTROSE 50% 50 ML SYRINGE IV PRN (21:37)
[2022-08-15] MEDS ORDERED: INSULIN ASPART PER UNIT SC SCH ×2 (04:00→07:30)
[2022-08-15] MEDS: LEVOTHYROXINE SODIUM 125 MCG TABLET PO SCH (05:54)
[2022-08-15] MEDS: ASPIRIN 81 MG ECTAB PO SCH (08:13)
[2022-08-15] MEDS: PANTOprazole 40 MG TAB PO SCH (08:13)
[2022-08-15] MEDS: FLUoxetine HCL 20 MG CAP PO SCH (08:13)
[2022-08-15] MEDS: lisinopril 5 MG TAB PO SCH (08:14)
[2022-08-15] MEDS: POT PHOSPHATE MONOBASIC W/ SOD TAB PO SCH ×4 (08:14→20:58)
[2022-08-15] MEDS: ENOXAPARIN INJ 40 MG/0.4 ML SYR SQ SCH (08:15)
[2022-08-15] MEDS: LANTUS PER UNIT CHARGE SQ SCH (09:08)
[2022-08-15 10:36] LABS: Albumin Globulin Ratio 1.4 (0.9-2); Albumin Level 3.4 gm/dl (3.4-5.0); BUN Creatinine Ratio 19.4 (10-20); Bilirubin,Total 0.4 mg/dl (0.2-1.0); Calcium 8.7 mg/dl (8.5-10.1); Creatinine Clr Calc Pharmacy 84.4 ml/min; Est GFR (African American) 105.4 ml/min; Globulin 2.4 gm/dl (2.5-4.0); Magnesium 1.8 mg/dl (1.7-2.4); Phosphorus 3.2 mg/dl (2.5-4.9); Potassium 4.5 mmol/L (3.5-5.1); Total Protein 5.8 gm/dl (6.0-8.3)
[2022-08-15] MEDS: INSULIN ASPART PER UNIT SC SCH ×2 (13:17→17:48)
[2022-08-15] MEDS ORDERED: INSULIN ASPART 100 UNITS/ML VIAL SC ONE (14:30)
--- NOTE | 2022-08-15 15:14 | XRay Report ---
XR chest 1V portable HISTORY: 67 years-old Female covid 19 infection, r/o pneumonia . Acute shortness of breath. COVID Po sitive. COMPARISON: Chest radiograph 08/11/2022 TECHNIQUE: AP view of the chest FINDINGS: Cardiomediastinal and hilar silhouettes are within normal limits. No pneumothorax, pleural effusion, airspace consolidation or overt pulmonary edema. Degenerative changes of the shoulders and spine. IMPRESSION: No acute process. ACT 112: Negative or not required by law. The above report was generated using voice recognition software. It may contain grammatical, syntax o r spelling errors. Electronically signed by: Joaquin Arthur M.D. 08/15/2022 3:13 PM
[2022-08-15] MEDS: REMDESIVIR 100 MG in SODIUM CHLORIDE 0.9% 230 ML IV SCH ×3 (16:39→19:28)
--- NOTE | 2022-08-15 16:40 | Hospitalist Progress Note ---
Date of Service August 15, 2022 delayed entry date of service noted above Assessment & Plan (1) DKA (diabetic ketoacidosis): Plan: per Dr. Willard's notes with addendum: Pt presents with her fourth episode of DKA in the last few months. There has been concern for noncompliance as a contributing factor. A1C is 13 reflective of poor overall control. Pt did test positive for COVID in the ED but denies any significant symptoms prior to today. Acidosis is improving with high anion gap closed. She is now eating and transitioning to basal bolus insulin. Had some cereal this am. Phosphorus is being replaced. Will plan to transfer up to PCU when off the insulin drip and fluids, likely later this afternoon. 08/13 BSG is elevated again this afternoon, 374 Insulin sliding scale adjusted Also on insulin Lantus Pharmacy glycemic control service, processes chemical design engineer also on board Possible worsening depression contributing to patient's suboptimal adherence to insulin therapy Will consult psychiatry service 08/14 BSG 77 --> 272 Continue insulin regimen Discussed with processes chemical design engineer Discussed with patient regarding SNF, she will be thinking about this Discussed with psychiatrist, fluoxetine to be increased 08/15 Patient for discharge however in the evening, blood glucose was in the 70s Insulin pump discontinued Monitor BSG's through the night insulin sliding scale as needed next (2) Presence of insulin pump: Plan: multiple episodes of noncompliance with the pump despite being taught on how to use this multiple times. There is a question of worsening depression since losing her mother this summer and one of her daughters is estranged. Lives with grandson, who is attending college locally and unable to care for her at home. Requested that OOA be involved- is looking into this. 08/14 Management per above (3) Electrolyte abnormality: Plan: Improved (4) Tachypnea: Plan: Due to acidosis-resolved (5) COVID-19: Plan: Isolation precautions Patient's oxygen saturation still 96% and above Chest x-ray: No signs of pneumonia discussed with patient regarding starting Remdesivir therapy given her risk factors for disease progression risks and benefits discussed, including kidney and liver injury, etc. Patient verbalized understanding and agreement, will start remdesivir today Not hypoxic so would not start dexamethasone at this time 08/15 Remains on room air Renal function, LFTs okay Continue remdesivir day #3 (6) GERD (gastroesophageal reflux disease): Plan: improved continue Protonix (7) Hypothyroidism: Plan: chronic, stable. Cont levothyroxine at current dose. (8) HTN (hypertension): Plan: chronic, slightly elevated this am. She continues on lisinopril 5mg per home regimen. Will cont to monitor for now. 08/14 Blood pressure at goal (9) Depression: Plan: May be uncontrolled. Patient denies feeling more depressed lately On fluoxetine and trazodone Psychiatry service Consulted 08/14 Discussed with psychiatry service [place] to have mild worsening of depression Fluoxetine increased to 60 mg Will be referred to outpatient psychiatry service for continued care (10) DVT prophylaxis: Plan: Lovenox Full Code Disposition Pending May benefit from short-term stay at rehab/skilled for insulin management, blood Leukos control Patient will be thinking about this, and will let me know tomorrow plan of care discussed with patient in detail and at length all questions answered She is understanding, agreeable, comfortable with the plan of care Admission and Anticipated Discharge Date Admission Date: August 11, 2022 Subjective Follow-up for DKA, COVID-19 infection, etc. 7 resting bedside chair In good spirits States she feels fine overall Comfortable, no cough, shortness of breath Abdominal pain no nausea vomiting No other symptom Review of Systems Review of Systems: all noted and negative except for above Physical Exam Physical Exam: General- oriented x 3, not in distress, speaks in sentences with no effort or accessory muscle use Eyes- anicteric Neck- no JVD Lungs- clear breath sounds bilaterally Heart- normal rate, regular rhythm; no murmurs Abdomen- normal bowel sounds, nondistended, soft, nontender Extremities- no pretibial edema, no calf tenderness Neuro- alert, oriented x 3; no gross focal neurologic deficits Skin- warm & dry Results & Data Results & Data ([facility]) Vital Signs (Past 12 Hours) Vital Signs Temp Pulse Resp BP BP Pulse Ox O2 Del Method 08/15/22 15:33 36.6 C 68 16 124/75 120/67 96 08/15/22 07:50 Room Air 08/15/22 05:57 36.6 C 68 16 124/75 96 Room Air all noted and reviewed including below (1) DKA (diabetic ketoacidosis) Diabetes mellitus complication detail: without coma Diabetes mellitus type: type 1 Qualified Code(s): E10.10 - Type 1 diabetes mellitus with ketoacidosis without coma
[2022-08-16] MEDS: LEVOTHYROXINE SODIUM 125 MCG TABLET PO SCH (06:31)
[2022-08-16 07:56] LABS: Albumin Globulin Ratio 1.4 (0.9-2); Albumin Level 2.9 gm/dl (3.4-5.0); BUN Creatinine Ratio 24.2 (10-20); Bilirubin,Total 0.2 mg/dl (0.2-1.0); Calcium 8.2 mg/dl (8.5-10.1); Creatinine Clr Calc Pharmacy 91.2 ml/min; Est GFR (African American) 108.1 ml/min; Est GFR (Non-African American) 93.3 ml/min; Globulin 2.1 gm/dl (2.5-4.0); Potassium 3.8 mmol/L (3.5-5.1)
[2022-08-16] MEDS: lisinopril 5 MG TAB PO SCH (08:54)
[2022-08-16] MEDS: ENOXAPARIN INJ 40 MG/0.4 ML SYR SQ SCH (08:54)
[2022-08-16] MEDS: POT PHOSPHATE MONOBASIC W/ SOD TAB PO SCH ×4 (08:54→20:02)
[2022-08-16] MEDS: ASPIRIN 81 MG ECTAB PO SCH (08:54)
[2022-08-16] MEDS: PANTOprazole 40 MG TAB PO SCH (08:55)
[2022-08-16] MEDS: FLUoxetine HCL 20 MG CAP PO SCH (08:55)
[2022-08-16 11:15] LABS: BUN Creatinine Ratio 21.9 (10-20); Calcium 8.3 mg/dl (8.5-10.1); Creatinine Clr Calc Pharmacy 88.3 ml/min; Est GFR (Non-African American) 92.3 ml/min; Potassium 4.4 mmol/L (3.5-5.1)
[2022-08-16] MEDS: CARBOHYDRATES FOR HYPOGLYCEMIA PO PRN ×2 (16:02→21:57)
[2022-08-16] MEDS: DEXTROSE 50% 50 ML SYRINGE IV PRN (16:09)
[2022-08-16] MEDS: REMDESIVIR 100 MG in SODIUM CHLORIDE 0.9% 230 ML IV SCH (17:19)
--- NOTE | 2022-08-16 18:22 | Hospitalist Progress Note ---
Date of Service August 16, 2022 Assessment & Plan (1) DKA (diabetic ketoacidosis): Plan: per Dr. Willard's notes with addendum: DKA resolved 08/15 Discharge canceled in the evening as patient's blood sugar in the 70s Insulin pump turned on 08/16 Insulin pump resumed at around 8 AM In the evening, around 6:00, patient's BSG 82, received a bolus of 22 units of insulin via insulin pump Advised RN to turn off insulin pump, monitor BSG's every hour x4 hours then inga ry 2 hours or after next Reevaluate pneumonia Pharmacist Nagi and RN George also updated (2) Presence of insulin pump: Plan: multiple episodes of noncompliance with the pump despite being taught on how to use this multiple times. There is a question of worsening depression since losing her mother this summer and one of her daughters is estranged. Lives with grandson, who is attending college locally and unable to care for her at home. Requested that OOA be involved-CM is looking into this. Management per above (3) Electrolyte abnormality: Plan: Improved (4) Tachypnea: Plan: Due to acidosis-resolved (5) COVID-19: Plan: Isolation precautions Patient's oxygen saturation still 96% and above Chest x-ray: No signs of pneumonia discussed with patient regarding starting Remdesivir therapy given her risk factors for disease progression risks and benefits discussed, including kidney and liver injury, etc. Patient verbalized understanding and agreement, will start remdesivir today Not hypoxic so would not start dexamethasone at this time 08/16 Remains on room air Renal function, LFTs okay Continue remdesivir day #3 (6) GERD (gastroesophageal reflux disease): Plan: improved continue Protonix (7) Hypothyroidism: Plan: chronic, stable. Cont levothyroxine at current dose. (8) HTN (hypertension): Plan: chronic, slightly elevated this am. She continues on lisinopril 5mg per home regimen. Will cont to monitor for now. 08/14 Blood pressure at goal (9) Depression: Plan: May be uncontrolled. Patient denies feeling more depressed lately On fluoxetine and trazodone Psychiatry service Consulted Discussed with psychiatry service [place] to have mild worsening of depression Fluoxetine increased to 60 mg Will be referred to outpatient psychiatry service for continued care (10) DVT prophylaxis: Plan: Lovenox Full Code Disposition Pending May benefit from short-term stay at rehab/skilled for insulin management, blood Leukos control Patient will be thinking about this, and will let me know tomorrow plan of care discussed with patient in detail and at length all questions answered She is understanding, agreeable, comfortable with the plan of care Admission and Anticipated Discharge Date Admission Date: August 11, 2022 Subjective Follow-up for DKA, etc. Hypoglycemic yesterday at dinnertime, insulin pump discontinued This morning, BSG 180s, insulin pump resumed Patient told RN that she gave insulin bolus for breakfast Later on around 10:00, BSG 335 GAIL Vazquez checked insulin pump, confirmed patient did not receive insulin bolus for breakfast Patient noted to be requiring [id number] instructions to give insulin bolus GAIL Vazquez patient on giving her insulin bolus today Seen sitting up in bed, comfortable, not in distress, watching videos on her phone States she feels fine overall Denies headache, dizziness, chest pain, shortness of breath, cough, fevers or chills No other symptoms In the evening, around 6:00, patient's BSG 82, received a bolus of 22 units of insulin via insulin pump Advised RN to turn off insulin pump, monitor BSG's every hour x4 hours then every 2 hours or after next Reevaluate pneumonia Pharmacist Nagi and GAIL Vazquez also updated Review of Systems Review of Systems: all noted and negative except for above Physical Exam Physical Exam: General- oriented x 3, not in distress, speaks in sentences with no effort or accessory muscle use Eyes- anicteric Neck- no JVD Lungs- clear breath sounds bilaterally Heart- normal rate, regular rhythm; no murmurs Abdomen- normal bowel sounds, nondistended, soft, no tenderness Extremities- no pretibial edema, no calf tenderness Neuro- alert, oriented x 3; no gross focal neurologic deficits Skin- warm & dry Results & Data Results & [facility] ([facility]) Vital Signs (Past 12 Hours) Vital Signs Temp Pulse Resp BP BP Pulse Ox O2 Del Method 08/16/22 15:59 36.6 C 84 18 112/65 98 Room Air 08/16/22 13:56 36.9 C 89 18 104/68 93 Room Air 08/16/22 07:50 Room Air all noted and reviewed including below (1) DKA (diabetic ketoacidosis) Diabetes mellitus complication detail: without coma Diabetes mellitus type: type 1 Qualified Code(s): E10.10 - Type 1 diabetes mellitus with ketoacidosis without coma
--- NOTE | 2022-08-17 00:13 | Pharmacy Report ---
Pharmacy Glycemic Short Note 2 - Date of Service August 17, 2022 - Glycemic Short BSG Results (Last 24 hours): 08/16/22 08/16/22 08/16/22 00:44 02:35 04:40 Glucose POC Glucose 92 120 H 150 H 08/16/22 08/16/22 08/16/22 06:30 07:13 07:47 Glucose 200 H POC Glucose 185 H 195 H 08/16/22 08/16/22 08/16/22 09:05 10:02 10:32 Glucose 382 H* POC Glucose 231 H 335 H* 08/16/22 08/16/22 08/16/22 11:52 13:54 15:57 Glucose POC Glucose 227 H 156 H 53 L* 08/16/22 08/16/22 08/16/22 16:02 16:19 17:52 Glucose POC Glucose 65 L* 173 H 82 08/16/22 08/16/22 08/16/22 19:02 20:00 21:00 Glucose POC Glucose 126 H 70 76 08/16/22 08/16/22 21:54 22:05 Glucose POC Glucose 64 L* 77 OUTPATIENT ANTIDIABETIC REGIMEN: * Novolog via Tandem T-slim insulin pump * Basal: 2.5 units x 24 hours * Bolus: ICR 3, CF 10, Target 110 mg/dL * HbA1c = 13.1 % (08/11/22) insulin settings taken from last admission 06/07/22 ASSESSMENT: 08/16 * Contacted this evening regarding repeat hypoglycemic episodes. Patient had resumed her insulin pump earlier today in anticipation of discharge, however RN reports pt had difficulty understanding how to use pump to bolus herself for climbing BSGs midday. Pt reportedly did receive a bolus of insulin around lunchtime however then BSGs began to fall with pre-dinner BSGs in 50-60s. In [facility] pump was d/c'd ~1800 08/16 as a result. Repeat episode of hypoglycemia noted at HS. Contacted Dr Garcia regarding plan for ongoing management. Plan to transition patient back to SQ basal/bolus while Pharmacy consulted for management as we cannot alter pump settings or adequately monitor pt self administration and BSG values. Per Dr Garcia, he will discuss with Dr Ashford in AM to determine ultimate plan for insulin management. PLAN FOR INPATIENT GLYCEMIC CONTROL: * Hold outpatient insulin pump * Basal insulin: * may need bolus insulin added tonight as last dose of basal was given in the AM 12/2 and insulin pump has been off for ~4 hrs at this point. Once BSG greater than 140-160 will add low dose Lantus in light of frequent lows * Bolus insulin * NovoLog per scale ACHS and at 00 + 04 tonight * Goal Range: Low 110 mg/dL - High 180 mg/dL * Correction Factor: 12 mg/dL/unit with breakfast, 20mg/dL/unit with lunch, dinner and HS * Nutritional / Prandial insulin per carb ratio of 1 unit per 3 grams CHO consumed with breakfast, 1 unit per 6 grams CHO consumed with lunch, dinner and HS
[2022-08-17] MEDS: INSULIN ASPART PER UNIT SC SCH ×6 (00:19→20:24)
[2022-08-17] MEDS ORDERED: INSULIN ASPART PER UNIT SC SCH (04:00)
[2022-08-17] MEDS ORDERED: LANTUS PER UNIT CHARGE SQ ONE (04:30)
[2022-08-17] MEDS: LEVOTHYROXINE SODIUM 125 MCG TABLET PO SCH (06:36)
[2022-08-17] MEDS: PANTOprazole 40 MG TAB PO SCH (08:36)
[2022-08-17] MEDS: FLUoxetine HCL 20 MG CAP PO SCH (08:37)
[2022-08-17] MEDS: ASPIRIN 81 MG ECTAB PO SCH (08:37)
[2022-08-17] MEDS: lisinopril 5 MG TAB PO SCH (08:37)
[2022-08-17] MEDS: ENOXAPARIN INJ 40 MG/0.4 ML SYR SQ SCH (08:37)
[2022-08-17] MEDS: POT PHOSPHATE MONOBASIC W/ SOD TAB PO SCH ×4 (09:35→20:19)
[2022-08-17 10:43] LABS: Potassium 4.2 mmol/L (3.5-5.1)
[2022-08-17 12:31] LABS: Alanine Aminotransferase 16 U/L (7-52); Albumin Globulin Ratio 1.4 (0.9-2); Albumin Level 3.2 gm/dl (3.4-5.0); Alkaline Phosphatase 63 U/L (34-104); Anion Gap 7 (3-11); Bilirubin,Total 0.4 mg/dl (0.2-1.0); Blood Urea Nitrogen 12 mg/dl (6-23); Calcium 8.4 mg/dl (8.5-10.1); Carbon Dioxide 27 mmol/L (21-32); Chloride 102 mmol/L (98-107); Creatinine Clr Calc Pharmacy 113.1 ml/min; Est GFR (African American) 116.1 ml/min; Est GFR (Non-African American) 100.2 ml/min; Globulin 2.3 gm/dl (2.5-4.0); Glucose 185 mg/dl (70-99(Fasting)); Sodium 136 mmol/L (136-145); Total Protein 5.5 gm/dl (6.0-8.3)
--- NOTE | 2022-08-17 15:58 | Hospitalist Progress Note ---
Date of Service August 17, 2022 Assessment & Plan (1) DKA (diabetic ketoacidosis): Plan: per Dr. Willard's notes with addendum: DKA resolved 08/15 Discharge canceled in the evening as patient's blood sugar in the 70s Insulin pump turned on 08/16 Insulin pump resumed at around 8 AM In the evening, around 6:00, patient's BSG 82, received a bolus of 22 units of insulin via insulin pump Advised RN to turn off insulin pump, monitor BSG's every hour x4 hours then inga ry 2 hours or after next Reevaluate pneumonia Pharmacist Nagi and RN George also updated 08/17 BSG 184 in am Insulin Pump off, will need adjustments with setting, will discuss with Pharm Glycemic control tomorrow for now, Insulin Lantus and ISS per Pharmacy Glycemic Control (2) Presence of insulin pump: Plan: multiple episodes of noncompliance with the pump despite being taught on how to use this multiple times. There is a question of worsening depression since losing her mother this summer and one of her daughters is estranged. Lives with grandson, who is attending college locally and unable to care for her at home. Requested that OOA be involved-CM is looking into this. Management per above (3) Electrolyte abnormality: Plan: Improved (4) Tachypnea: Plan: Due to acidosis-resolved (5) COVID-19: Plan: Isolation precautions Patient's oxygen saturation still 96% and above Chest x-ray: No signs of pneumonia discussed with patient regarding starting Remdesivir therapy given her risk factors for disease progression risks and benefits discussed, including kidney and liver injury, etc. Patient verbalized understanding and agreement, will start remdesivir today Not hypoxic so would not start dexamethasone at this time 08/17 Remains on room air Renal function, LFTs okay Continue remdesivir day #4 (6) GERD (gastroesophageal reflux disease): Plan: improved continue Protonix (7) Hypothyroidism: Plan: chronic, stable. Cont levothyroxine at current dose. (8) HTN (hypertension): Plan: chronic, slightly elevated this am. She continues on lisinopril 5mg per home regimen. Will cont to monitor for now. Blood pressure at goal (9) Depression: Plan: May be uncontrolled. Patient denies feeling more depressed lately On fluoxetine and trazodone Psychiatry service Consulted Discussed with psychiatry service [place] to have mild worsening of depression Fluoxetine increased to 60 mg Will be referred to outpatient psychiatry service for continued care (10) DVT prophylaxis: Plan: Lovenox Full Code Disposition Pending plan of care discussed with patient in detail and at length all questions answered She is understanding, agreeable, comfortable with the plan of care Admission and Anticipated Discharge Date Admission Date: August 11, 2022 Subjective ff up for DKA, DM 1 on insulin pump, etc seen resting in bed, comfortable states she feels fine overall no cough, SOB appetite ok denies tremors, sweating last night no other symptoms Review of Systems Review of Systems: all noted and negative except for above Physical Exam Physical Exam: General- oriented x 3, not in distress, speaks in sentences with no effort or accessory muscle use Eyes- anicteric Neck- no JVD Lungs- clear BS bilaterally, no rales, no crackles Heart- normal rate, regular rhythm; no murmurs Abdomen- normal bowel sounds, nondistended, soft, no tenderness Extremities- no pretibial edema, no calf tenderness Neuro- alert, oriented x 3; no gross focal neurologic deficits Skin- warm & dry Results & Data Results & Data ([facility]) Vital Signs (Past 12 Hours) Vital Signs Temp Pulse Resp BP Pulse Ox O2 Del Method 08/17/22 08:39 36.8 C 86 20 126/79 95 Room Air all noted and reviewed including below (1) DKA (diabetic ketoacidosis) Diabetes mellitus complication detail: without coma Diabetes mellitus type: type 1 Qualified Code(s): E10.10 - Type 1 diabetes mellitus with ketoacidosis without coma
[2022-08-18] MEDS: INSULIN ASPART PER UNIT SC SCH ×6 (00:02→20:52)
[2022-08-18] MEDS: LEVOTHYROXINE SODIUM 125 MCG TABLET PO SCH (05:46)
[2022-08-18] MEDS ORDERED: LANTUS PER UNIT CHARGE SQ SCH (09:00)
[2022-08-18] MEDS: lisinopril 5 MG TAB PO SCH (09:53)
[2022-08-18] MEDS: PANTOprazole 40 MG TAB PO SCH (09:53)
[2022-08-18] MEDS: ASPIRIN 81 MG ECTAB PO SCH (09:53)
[2022-08-18] MEDS: FLUoxetine HCL 20 MG CAP PO SCH (09:53)
[2022-08-18] MEDS: POT PHOSPHATE MONOBASIC W/ SOD TAB PO SCH ×4 (09:54→21:18)
[2022-08-18] MEDS: ENOXAPARIN INJ 40 MG/0.4 ML SYR SQ SCH (09:55)
[2022-08-18] MEDS ORDERED: INSULIN ASPART 100 UNITS/ML VIAL SC PRN (13:45)
[2022-08-18] MEDS ORDERED: LANTUS PER UNIT CHARGE SQ ONE ×2 (13:45→14:00)
--- NOTE | 2022-08-18 14:01 | Pharmacy Report ---
Pharmacy Glycemic Short Note 2 - Date of Service August 18, 2022 - Glycemic Short BSG Results (Last 24 hours): 08/17/22 08/17/22 08/17/22 17:21 20:18 23:58 POC Glucose 134 H 165 H 168 H 08/18/22 08/18/22 08/18/22 04:11 08:24 12:57 POC Glucose 216 H 265 H 212 H OUTPATIENT ANTIDIABETIC REGIMEN: * Novolog via Tandem T-slim insulin pump * Basal: 2.5 units x 24 hours * Bolus: ICR 3, CF 10, Target 110 mg/dL * HbA1c = 13.1 % (08/11/22) insulin settings taken from last admission 06/07/22 ASSESSMENT: 08/18 * Transition to insulin pump failed on 08/16 with repeated hypoglycemic episodes * SC basal/bolus restarted on 08/17 with plan to wait until Thursday to discuss plan with telehealth nurse educator * Plan is now to reattempt transition back to pump tomorrow morning * Initially gave reduced basal dose in case pump would be restarted this evening * Will give additional basal with lunch to provide coverage until pump restarted tomorrow * Discussed with telehealth nurse educator who noted concerns that patient may not be reliably bolusing at home so current basal rate + bolus is likely resulting in the hypoglycemia we noted on 08/16. Plan is to loosen parameters to provide less bolus insulin on pump. 08/16 * Contacted this evening regarding repeat hypoglycemic episodes. Patient had resumed her insulin pump earlier today in anticipation of discharge, however RN reports pt had difficulty understanding how to use pump to bolus herself for climbing BSGs midday. Pt reportedly did receive a bolus of insulin around lunchtime however then BSGs began to fall with pre-dinner BSGs in 50-60s. Insulin pump was d/c'd ~1800 08/16 as a result. Repeat episode of hypoglycemia noted at HS. Contacted Dr Garcia regarding plan for ongoing management. Plan to transition patient back to SQ basal/bolus while Pharmacy consulted for management as we cannot alter pump settings or adequately monitor pt self administration and BSG values. Per Dr Garcia, he will discuss with Dr Ashford in AM to determine ultimate plan for insulin management. PLAN FOR INPATIENT GLYCEMIC CONTROL: Basal insulin: * Lantus 20 units SC x 1 this morning * Lantus 10 units SC x 1 with lunch * D/c ongoing basal - transitioning to pump Bolus insulin: * NovoLog per scale ACHS or Q6hrs while NPO * Goal Range: Low 110 mg/dL - High 180 mg/dL * Correction Factor: 12 mg/dL/unit for breakfast and 20 mg/dl/unit for lunch, dinner and HS * Nutritional / Prandial insulin per carb ratio of 1 unit per 3 grams CHO consumed for breakfast and 1:7 for lunch, dinner and HS * 00,04 checks this evening and then discontinue (transitioning to pump) Starting AM of 08/19/22: * Pt is to manage BSGs with insulin pump per outpatient settings with assistance from certified ski patroller. * RN will have patient read and sign agreement CF 006 Insulin Pump Therapy Patient Agreement. * RN will provide and explain form [id number] Flowsheet for Patient * Patient will document their insulin dose given on [id number] which is kept at the bedside, available to caregivers upon request, and which becomes part of the permanent medical record. Initial plan is to continue home basal rate and reduce bolus parameters (loosen goal range 110-180, loosen ICR to 6, and loosen CF to 20) If at any time the patients condition evidences that he/she is not able to manage the insulin pump (i.e. frequent hypo/hyperglycemia) Pharmacy will assume glycemic control by discontinuing the pump & managing with SQ basal bolus insulin regimen for the interim.
--- NOTE | 2022-08-18 20:10 | Hospitalist Progress Note ---
Date of Service August 18, 2022 delayed entry date of service noted above Assessment & Plan (1) DKA (diabetic ketoacidosis): Plan: per Dr. Willard's notes with addendum: Admitted to ICU, required insulin drip DKA resolved Patient has had multiple admissions this year for DKA secondary to have been able to manage insulin pump while at home Including forgetting to do insulin boluses, refilling insulin cartridge, etc. Patient's depression, cognitive decline contributing to patient's poor management of insulin pump Patient lives with his grandson, who is a high school student, and daughter lives in [place] Per daughter, patient has been having difficulty maintaining cleanliness of her house, and cooking meals for herself prosthodontist/educator on board Has been difficult to manage blood glucose after patient transitioned to insulin pump Need to ensure patient has the right carb coverage setting, insulin pump settings prior to being discharged home This morning, prosthodontist/educator guided patient to restart insulin pump Carb coverage for meals loosened Plan is to monitor the patient on insulin pump with new carb coverage for 24 hours prior to be discharged home This evening, patient's BSG 70, instructed patient to not administer insulin bolus with dinner Repeat BSG every hour x4 hours then every 2 hours later till the morning For prosthodontist/educator, continue insulin pump through the night, monitor BSG's so necessary adjustments can be done in the morning (2) Presence of insulin pump: Plan: multiple episodes of noncompliance with the pump despite being taught on how to use this multiple times. There is a question of worsening depression since losing her mother this summer and one of her daughters is estranged. Lives with grandson, who is attending college locally and unable to care for her at home. Requested that OOA be involved-CM is looking into this. Management per above (3) COVID-19: Plan: No hypoxia observed Chest x-ray: No signs of pneumonia Completed remdesivir course x5 days (4) GERD (gastroesophageal reflux disease): Plan: improved continue Protonix (5) Hypothyroidism: Plan: chronic, stable. Cont levothyroxine at current dose. (6) HTN (hypertension): Plan: She continues on lisinopril 5mg per home regimen Blood pressure at goal (7) Depression: Plan: May be uncontrolled. Patient denies feeling more depressed lately On fluoxetine and trazodone Psychiatry service Consulted Discussed with psychiatry service [place] to have mild worsening of depression Fluoxetine increased to 60 mg Will be referred to outpatient psychiatry service for continued care (8) DVT prophylaxis: Plan: Lovenox Full Code Disposition Pending Discharge to home once patient is in a good insulin pump regimen with no hypo or hyperglycemic episodes Case management on board plan of care discussed with patient in detail and at length all questions answered She is understanding, agreeable, comfortable with the plan of care Admission and Anticipated Discharge Date Admission Date: August 11, 2022 Subjective Follow-up for DKA, COVID-19 infection, etc. Next Seen resting in bed, comfortable, not in distress States she feels fine overall Denies cough, shortness of breath, chest pain No other symptoms Review of Systems Review of Systems: all noted and negative except for above Physical Exam Physical Exam: General- oriented x 3, not in distress, speaks in sentences with no effort or accessory muscle use Eyes- anicteric Neck- no JVD Lungs- clear breath sounds, no crackles or wheezing bilaterally Heart- normal rate, regular rhythm; no murmurs Abdomen- normal bowel sounds, nondistended, soft, no tenderness Extremities- no pretibial edema, no calf tenderness Neuro- alert, oriented x 3; no gross focal neurologic deficits Skin- warm & dry Results & Data Results & Data ([facility]) Vital Signs (Past 12 Hours) Vital Signs Temp Pulse Resp BP Pulse Ox O2 Del Method 08/18/22 08:21 36.9 C 72 16 120/69 96 Room Air all noted and reviewed including below (1) DKA (diabetic ketoacidosis) Diabetes mellitus complication detail: without coma Diabetes mellitus type: type 1 Qualified Code(s): E10.10 - Type 1 diabetes mellitus with ketoacidosis without coma
[2022-08-19] MEDS: INSULIN ASPART PER UNIT SC SCH ×2 (00:27→04:14)
[2022-08-19] MEDS: LEVOTHYROXINE SODIUM 125 MCG TABLET PO SCH (04:14)
[2022-08-19] MEDS: ASPIRIN 81 MG ECTAB PO SCH (08:52)
[2022-08-19] MEDS: FLUoxetine HCL 20 MG CAP PO SCH (08:52)
[2022-08-19] MEDS: POT PHOSPHATE MONOBASIC W/ SOD TAB PO SCH ×4 (08:52→21:09)
[2022-08-19] MEDS: PANTOprazole 40 MG TAB PO SCH (08:52)
[2022-08-19] MEDS: ENOXAPARIN INJ 40 MG/0.4 ML SYR SQ SCH (08:52)
[2022-08-19] MEDS: lisinopril 5 MG TAB PO SCH (08:52)
[2022-08-19] MEDS: INSULIN, Rapid-Acting PUMP SCH ×4 (09:12→21:15)
[2022-08-19] MEDS: CARBOHYDRATES FOR HYPOGLYCEMIA PO PRN (17:45)
--- NOTE | 2022-08-19 18:10 | Hospitalist Progress Note ---
Date of Service August 19, 2022 Assessment & Plan (1) DKA (diabetic ketoacidosis): Plan: per Dr. Willard's notes with addendum: Admitted to ICU, required insulin drip DKA resolved Patient has had multiple admissions this year for DKA secondary to have been able to manage insulin pump while at home Including forgetting to do insulin boluses, refilling insulin cartridge, etc. Patient's depression, cognitive decline contributing to patient's poor management of insulin pump Patient lives with his grandson, who is a high school student, and daughter lives in [place] Per daughter, patient has been having difficulty maintaining cleanliness of her house, and cooking meals for herself family living educator on board Has been difficult to manage blood glucose after patient transitioned to insulin pump Need to ensure patient has the right carb coverage setting, insulin pump settings prior to being discharged home This morning, extension educator guided patient to restart insulin pump Carb coverage for meals loosened Plan is to monitor the patient on insulin pump with new carb coverage for 24 hours prior to be discharged home This evening, patient's BSG 70, instructed patient to not administer insulin bolus with dinner Repeat BSG every hour x4 hours then every 2 hours later till the morning For extension educator, continue insulin pump through the night, monitor BSG's so necessary adjustments can be done in the morning (2) Presence of insulin pump: Plan: multiple episodes of noncompliance with the pump despite being taught on how to use this multiple times. There is a question of worsening depression since losing her mother this summer and one of her daughters is estranged. Lives with grandson, who is attending college locally and unable to care for her at home. Requested that OOA be involved- is looking into this. Management per above (3) COVID-19: Plan: No hypoxia observed Chest x-ray: No signs of pneumonia Completed remdesivir course x5 days (4) GERD (gastroesophageal reflux disease): Plan: improved continue Protonix (5) Hypothyroidism: Plan: chronic, stable. Cont levothyroxine at current dose. (6) HTN (hypertension): Plan: She continues on lisinopril 5mg per home regimen Blood pressure at goal (7) Depression: Plan: May be uncontrolled. Patient denies feeling more depressed lately On fluoxetine and trazodone Psychiatry service Consulted Discussed with psychiatry service [place] to have mild worsening of depression Fluoxetine increased to 60 mg Will be referred to outpatient psychiatry service for continued care (8) DVT prophylaxis: Plan: Lovenox Full Code Disposition Pending Discharge to home once patient is in a good insulin pump regimen with no hypo or hyperglycemic episodes Case management on board plan of care discussed with patient in detail and at length all questions answered She is understanding, agreeable, comfortable with the plan of care Admission and Anticipated Discharge Date Admission Date: August 11, 2022 Subjective Follow-up for DKA, COVID-19 infection, etc. Seen resting in bed, comfortable, no distress, watching video on her phone States she feels fine overall Denies shortness of breath, cough, chest pain, leg pain Appetite is good States she is able to upload insulin pump properly today, giving herself insulin boluses No other symptoms Review of Systems Review of Systems: all noted and negative except for above Physical Exam Physical Exam: General- oriented x 3, not in distress, speaks in sentences with no effort or accessory muscle use Eyes- anicteric Neck- no JVD Lungs- clear breath sounds bilaterally, no crackles, no wheezing bilaterally Heart- normal rate, regular rhythm; no murmurs Abdomen- normal BS, nondistended, soft,no tenderness Extremities- no pretibial edema, no calf tenderness Neuro- alert, oriented x 3; no gross focal neurologic deficits Skin- warm & dry Results & Data Results & Data ([facility]) Vital Signs (Past 12 Hours) Vital Signs Temp Pulse Resp BP Pulse Ox O2 Del Method 08/19/22 18:05 37 C 83 16 107/68 96 Room Air 08/19/22 08:29 36.8 C 78 16 120/72 96 Room Air all noted and reviewed including below (1) DKA (diabetic ketoacidosis) Diabetes mellitus complication detail: without coma Diabetes mellitus type: type 1 Qualified Code(s): E10.10 - Type 1 diabetes mellitus with ketoacidosis without coma
[2022-08-20] MEDS: CARBOHYDRATES FOR HYPOGLYCEMIA PO PRN ×3 (00:33→15:43)
[2022-08-20] MEDS: LEVOTHYROXINE SODIUM 125 MCG TABLET PO SCH (06:25)
[2022-08-20] MEDS: ENOXAPARIN INJ 40 MG/0.4 ML SYR SQ SCH (08:19)
[2022-08-20] MEDS: ASPIRIN 81 MG ECTAB PO SCH (08:19)
[2022-08-20] MEDS: PANTOprazole 40 MG TAB PO SCH (08:20)
[2022-08-20] MEDS: POT PHOSPHATE MONOBASIC W/ SOD TAB PO SCH ×4 (08:20→20:44)
[2022-08-20] MEDS: lisinopril 5 MG TAB PO SCH (08:20)
[2022-08-20] MEDS: FLUoxetine HCL 20 MG CAP PO SCH (08:20)
[2022-08-20] MEDS: INSULIN, Rapid-Acting PUMP SCH ×4 (09:06→23:21)
[2022-08-20 10:22] LABS: Basophils # (auto) 0.06 K/uL (0-0.2); Basophils % (auto) 0.7 %; Eosinophils # (auto) 0.12 K/uL (0-0.50); Eosinophils % (auto) 1.4 %; Hematocrit (blood only) 39.5 % (34.1-44.9); Hemoglobin 12.5 g/dl (12.0-16.0); Immature Granulocytes # (auto) 0.04 K/uL (0.00-0.02); Immature Granulocytes % (auto) 0.5 %; Lymphocytes # (auto) 3.57 K/uL (1.2-3.4); Lymphocytes % (auto) 41.2 %; Mean Corpuscular Hemoglobin 30.8 pg (25.0-34.0); Mean Corpuscular Hgb Conc 31.6 g/dL (32.0-36.0); Mean Corpuscular Volume 97.3 fL (80.0-100.0); Mean Platelet Volume 11.3 fL (9.4-12.3); Monocytes % (auto) 11.5 %; Neutrophils # (auto) 3.88 K/uL (1.4-6.5); Neutrophils % (auto) 44.7 %; Platelet Count 407 K/uL (130-400); RDW Coefficient of Variation 14.6 % (11.5-14.5); Red Blood Count 4.06 M/uL (3.93-5.22); White Blood Count 8.67 K/ul (4.8-10.8)
[2022-08-20 10:51] LABS: BUN Creatinine Ratio 16.4 (10-20); Calcium 8.8 mg/dl (8.5-10.1); Creatinine Clr Calc Pharmacy 84.4 ml/min; Est GFR (African American) 105.4 ml/min; Magnesium 1.8 mg/dl (1.7-2.4); Phosphorus 3.8 mg/dl (2.5-4.9); Potassium 3.8 mmol/L (3.5-5.1)
--- NOTE | 2022-08-20 11:58 | Hospitalist Progress Note ---
Date of Service August 20, 2022 Assessment & Plan (1) DKA (diabetic ketoacidosis): Plan: Pt presents with her fourth episode of DKA in the last few months. There has been concern for noncompliance as a contributing factor. A1C is 13 reflective of poor overall control. Pt did test positive for COVID in the ED but denies any significant symptoms prior to today. Recurrent DKA likely secondary to pump mismanagement Required to discontinue pump while in the hospital and later on reinstituted Has been under care of crisis nurse DKA was controlled subsequently and now she has been eating normally Has had an episode of hypoglycemia last evening but blood sugar has been running on the higher side since this morning Appreciate pharmacy glycemic control and vertical borer counseling She understands how to use the insulin pump and should be doing it correctly as per our discussion this morning She denies any further symptoms and wants to go home She will be discharged this afternoon and she does have appointment with insurance investigator on of this month (2) Presence of insulin pump: Plan: multiple episodes of noncompliance with the pump despite being taught on how to use this multiple times. There is a question of worsening depression since losing her mother this summer and one of her daughters is estranged. Lives with grandson, who is attending college locally and unable to care for her at home. Requested that OOA be involved-CM is looking into this. Insulin pump has been reinstituted Appropriate adjustment of insulin pump has been made by vertical borer and glycemic control pharmacist Patient is mentally agreeable to go home this afternoon (3) Electrolyte abnormality: Plan: Improved (4) Tachypnea: Plan: Due to acidosis-resolved (5) COVID-19: Plan: COVID-19 virus infection was diagnosed on 08/03/2022 Isolation precautions Patient's oxygen saturation still 96% and above Chest x-ray: No signs of pneumonia discussed with patient regarding starting Remdesivir therapy given her risk factors for disease progression risks and benefits discussed, including kidney and liver injury, etc. Patient verbalized understanding and agreement, will start remdesivir today Received remdesivir for 3 days Remains asymptomatic-no cough and no shortness of breath and no wheezing She will need only 1 more day of isolation (6) GERD (gastroesophageal reflux disease): Plan: improved continue Protonix (7) Hypothyroidism: Plan: chronic, stable. Cont levothyroxine at current dose. (8) HTN (hypertension): Plan: chronic, slightly elevated this am. She continues on lisinopril 5mg per home regimen. Will cont to monitor for now. (9) Depression: Plan: May be uncontrolled. Patient denies feeling more depressed lately On fluoxetine and trazodone Psychiatry service Consulted Fluoxetine increased to 60 mg Will be referred to outpatient psychiatry service for continued care (10) DVT prophylaxis: Plan: Lovenox Full Code Disposition Diabetes seems to be reasonably controlled with current doses of insulin from the pump Patient understands how to use the pump and is confident that she will be able to do a good job at home She was discharged home this afternoon Admission and Anticipated Discharge Date Admission Date: August 11, 2022 Subjective 08/20/2022 The patient was seen and examined in medical floor and in the COVID room She has been feeling much better and denies any symptoms She has had 1 episode of low glucose early this morning without any significant symptoms Her insulin pump has been just adjusted and she wants to go home this afternoon Review of Systems Review of Systems: All systems reviewed and are unremarkable except as noted below Physical Exam Physical Exam: Sitting on a chair without any acute distress Constitutional: well developed, well nourished and average body habitus; not ill appearing Eyes: PERRL, conjunctivae normal, anicteric sclerae ENMT: external ear and nose normal, oropharynx normal Neck: trachea midline, no thyromegaly Respiratory: no respiratory distress Auscultation: lungs clear to auscultation bilaterally Cardiovascular: Rate/Rhythm: regular rate and regular rhythm; not tachycardic Heart Sounds: normal S1 and normal S2; no murmur Extremities: no edema Gastrointestinal (Abdomen): Inspection/Auscultation: normal bowel sounds; abdomen not distended Percussion/Palpation: abdomen soft; abdomen nontender Musculoskeletal: No acute arthritis in any joint Neurologic: Alert, awake and oriented times. No focal sensory or no motor deficit appreciated Psychiatric: A+Ox3, euthymic affect Lymphatic: no cervical or axillary lymphadenopathy Results & Data Results & Data ([facility]) Vital Signs (Past 12 Hours) Vital Signs Temp Pulse Resp BP Pulse Ox O2 Del Method 08/20/22 07:23 36.6 C 77 16 116/64 94 Room Air Laboratory Results Short CBC 08/20/22 Range/Units 09:50 WBC 8.67 (4.8-10.8) K/ul Hgb 12.5 (12.0-16.0) g/dl Hct 39.5 (34.1-44.9) % Plt Count 407 H (130-400) K/uL BMP 08/20/22 09:50 Sodium 135 L Potassium 3.8 Chloride 100 Carbon Dioxide 24 BUN 11 Creatinine 0.67 Glucose 313 H* Calcium 8.8 Medications Administered Current Inpatient Medications Aspirin (Aspirin 81 Mg Ectab) 81 mg PO DAILY [facility] Stop: 09/11/22 08:59 Last Admin: 08/20/22 08:19 Dose: 81 mg Dextrose (Dextrose 50% 50 Ml Syringe) 25 - 50 ml IV UD PRN; Protocol PRN Reason: Hypoglycemia Protocol Stop: 09/10/22 17:21 Last Admin: 08/16/22 16:09 Dose: 25 ml Enoxaparin Sodium (Enoxaparin Inj 40 Mg/0.4 Ml Syr) 40 mg SQ QAM [facility] Stop: 09/11/22 08:59 Last Admin: 08/20/22 08:19 Dose: 40 mg Fluoxetine HCl (Fluoxetine Hcl 20 Mg Cap) 60 mg PO DAILY [facility] Stop: 09/14/22 08:59 Last Admin: 08/20/22 08:20 Dose: 60 mg Glucagon (Glucagon For Inj 1 Mg Vial) 1 mg SQ UD PRN; Protocol PRN Reason: Hypoglycemia Protocol Stop: 09/10/22 17:21 Glucose (Glucose 40% Gel 15 Gm Tube) 15 - 30 gm PO UD PRN; Protocol PRN Reason: Hypoglycemia Protocol Stop: 09/10/22 17:21 Glucose (Glucose 10 Tab/Tube) 4 - 8 tab PO UD PRN; Protocol PRN Reason: Hypoglycemia Treatment Stop: 09/10/22 17:21 Insulin Aspart (Insulin, Rapid-Acting Pump) 1 each N/A ACHS [facility]; Protocol Stop: 09/18/22 07:59 Last Admin: 08/20/22 09:06 Dose: 1 each Insulin Aspart (Insulin Aspart 100 Units/Ml Vial) 0 units SC PRN PRN PRN Reason: Pump Refill Use ONLY Stop: 09/17/22 13:44 Levothyroxine Sodium (Levothyroxine Sodium 125 Mcg Tablet) 125 mcg PO DAILYBB [facility] Stop: 09/11/22 06:29 Last Admin: 08/20/22 06:25 Dose: 125 mcg Lisinopril (Lisinopril 5 Mg Tab) 5 mg PO DAILY [facility] Stop: 09/11/22 08:59 Last Admin: 08/20/22 08:20 Dose: 5 mg Miscellaneous (Carbohydrates For Hypoglycemia ) 15 - 30 gm PO UD PRN PRN Reason: Hypoglycemia Protocol Stop: 09/10/22 17:21 Last Admin: 08/20/22 00:55 Dose: 15 gm Miscellaneous Information (Pharmacy Glycemic Mgmt Consult) 1 each N/A UD PRN PRN Reason: Consult Stop: 09/10/22 22:34 Pantoprazole Sodium (Pantoprazole 40 Mg Tab) 40 mg PO DAILY [facility] Stop: 09/12/22 08:59 Last Admin: 08/20/22 08:20 Dose: 40 mg Potassium Phosphate (Pot Phosphate Monobasic W/ Sod Tab) 1 tab PO QID [facility] Stop: 09/11/22 08:59 Last Admin: 08/20/22 08:20 Dose: 1 tab Trazodone HCl (Trazodone Hcl 50 Mg Tab) 50 mg PO HS PRN PRN Reason: insomnia Stop: 09/13/22 20:59 Last Admin: 08/14/22 00:19 Dose: 50 mg (1) DKA (diabetic ketoacidosis) Diabetes mellitus complication detail: without coma Diabetes mellitus type: type 1 Qualified Code(s): E10.10 - Type 1 diabetes mellitus with ketoacidosis without coma
--- NOTE | 2022-08-20 13:30 | Pharmacy Report ---
Pharmacy Glycemic Short Note 2 - Date of Service August 20, 2022 - Glycemic Short BSG Results (Last 24 hours): 08/19/22 08/19/22 08/19/22 17:38 18:04 19:01 Glucose POC Glucose 70 119 H 168 H 08/19/22 08/19/22 08/20/22 20:13 22:07 00:24 Glucose POC Glucose 157 H 96 66 L* 08/20/22 08/20/22 08/20/22 00:25 00:50 00:54 Glucose POC Glucose 64 L* 66 L* 66 L* 08/20/22 08/20/22 08/20/22 01:11 02:30 04:29 Glucose POC Glucose 88 121 H 149 H 08/20/22 08/20/22 08/20/22 06:23 08:18 09:50 Glucose 313 H* POC Glucose 95 156 H 08/20/22 12:24 Glucose POC Glucose 149 H OUTPATIENT ANTIDIABETIC REGIMEN: * Novolog via Tandem T-slim insulin pump * Basal: 2.5 units x 24 hours * Bolus: ICR 3, CF 10, Target 110 mg/dL * HbA1c = 13.1 % (08/11/22) insulin settings taken from last admission 06/07/22 ASSESSMENT: 08/20/22: * Pt was transitioned back to her insulin pump yesterday morning. * BSG trends continue to be: BG elevated pre-lunch, BG trend low starting in the evening (pt had an episode of hypoglycemia around midnight last night) * Spoke with CDE this morning and the plan is to adjust (reduce) patient's basal rate for the afternoon/night in an attempt to avoid further hypoglycemic episodes. Pump settings will be adjusted as follows: * from [id number]: basal rate 2.5 units/hr * from [id number]: basal rate 1.5 units/hr * CDE plans to adjust patient's pump settings this afternoon. If pre-lunch BSG continues to trend high, will consider tightening CF/CR. 08/18 * Transition to insulin pump failed on 08/16 with repeated hypoglycemic episodes * SC basal/bolus restarted on 08/17 with plan to wait until Thursday to discuss plan with early childhood special educator * Plan is now to reattempt transition back to pump tomorrow morning * Initially gave reduced basal dose in case pump would be restarted this evening * Will give additional basal with lunch to provide coverage until pump restarted tomorrow * Discussed with early childhood special educator who noted concerns that patient may not be reliably bolusing at home so current basal rate + bolus is likely resulting in the hypoglycemia we noted on 08/16. Plan is to loosen parameters to provide less bolus insulin on pump. 08/16 * Contacted this evening regarding repeat hypoglycemic episodes. Patient had resumed her insulin pump earlier today in anticipation of discharge, however RN reports pt had difficulty understanding how to use pump to bolus herself for climbing BSGs midday. Pt reportedly did receive a bolus of insulin around lunchtime however then BSGs began to fall with pre-dinner BSGs in 50-60s. Insulin pump was d/c'd ~1800 08/16 as a result. Repeat episode of hypoglycemia noted at HS. Contacted Dr Garcia regarding plan for ongoing management. Plan to transition patient back to SQ basal/bolus while Pharmacy consulted for management as we cannot alter pump settings or adequately monitor pt self administration and BSG values. Per Dr Garcia, he will discuss with Dr Ashford in AM to determine ultimate plan for insulin management. PLAN FOR INPATIENT GLYCEMIC CONTROL: * Continue patient's insulin pump with adjusted basal settings as above. * Continue current correction/carb coverage. Will consider adjusting based on BG trends. * If at any time the patients condition evidences that he/she is not able to manage the insulin pump (i.e. frequent hypo/hyperglycemia) Pharmacy will assume glycemic control by discontinuing the pump & managing with SQ basal bolus insulin regimen for the interim.
[2022-08-21] MEDS: LEVOTHYROXINE SODIUM 125 MCG TABLET PO SCH (06:12)
[2022-08-21] MEDS: POT PHOSPHATE MONOBASIC W/ SOD TAB PO SCH ×4 (09:35→20:51)
[2022-08-21] MEDS: ASPIRIN 81 MG ECTAB PO SCH (09:39)
[2022-08-21] MEDS: ENOXAPARIN INJ 40 MG/0.4 ML SYR SQ SCH (09:39)
[2022-08-21] MEDS: FLUoxetine HCL 20 MG CAP PO SCH (09:39)
[2022-08-21] MEDS: PANTOprazole 40 MG TAB PO SCH (09:39)
[2022-08-21] MEDS: lisinopril 5 MG TAB PO SCH (09:39)
[2022-08-21] MEDS: INSULIN, Rapid-Acting PUMP SCH ×4 (09:54→20:49)
--- NOTE | 2022-08-21 17:28 | Discharge Summary ---
Date of Service August 21, 2022 Admission HPI Per Admitting Provider This is a 65 y/o female with a PMH of type 1 DM on an insulin pump, hx DKA, HTN, hypothyroidism, GERD, and hyperlipidemia who presented to the ED today with weakness, nausea, and chills. Pt reports that she was feeling okay yesterday but when she woke up today, she was very weak and tired. She then developed shortness of breath, nausea and a mild YANES. She denies vomiting or diarrhea. Currently, she is complaining of significant epigastric burning and sensation that she is going to vomit and/or regurgitate but she reports that she hates to vomit so she is fighting the sensation. No cough, congestion, rhinorrhea. She is feeling cold but did not check her temperature so unsure if she had a fever. She said her sugars yesterday were in the 200s but she didn't check them today because she was so weak. She felt like she was going to pass out so she called for EMS. She denies known sick contacts although she is often around her grandson so she isn't sure if he has been ill. Of note, this is her fourth a dmission this fall for DKA and there is a question of noncompliance with her pump. Principal Diagnosis DKA Discharge Exam Gen: WD/WN, NAD, sitting in bedside chair, A&Ox3 HEENT: Normocephalic, atraumatic, conjunctivae moist, sclerae anicteric, mucous membranes moist Lung: Clear to Auscultation bilaterally, no wheezes/rales/rhonchi Heart: Regular rate, regular rhythm, no murmurs, rubs, or gallops Abdomen: Soft, NT, ND +BS x 4, + wearing insulin pump on belt Extremities: no edema Skin: Warm, no rash Discharge Data Allergies Allergy/AdvReac Type Severity Reaction Status Date / Time dextromethorphan Allergy Severe Difficulty Verified 08/07/22 15:41 Breathing doxylamine Allergy Severe Difficulty Verified 08/07/22 15:41 Breathing pseudoephedrine Allergy Severe Difficulty Verified 08/07/22 15:41 Breathing glyburide Allergy Intermediate RASH Verified 08/07/22 15:41 tetanus toxoid, adsorbed Allergy Intermediate painful Verified 08/07/22 15:41 joints Ethanol Allergy Severe Difficulty Uncoded 08/07/22 15:41 Breathing Consultations 08/11/22 18:27 ED Decision to Admit Stat 08/11/22 18:36 Consult Dock Guard Stat 08/13/22 15:56 Consult Psychiatry Routine Hospital Course (1) DKA (diabetic ketoacidosis): (2) Presence of insulin pump: (3) Electrolyte abnormality: (4) Tachypnea: (5) COVID-19: (6) GERD (gastroesophageal reflux disease): (7) Hypothyroidism: (8) HTN (hypertension): (9) Depression: Plan Patient presents with her fourth episode of DKA in the last few months. There has been concern for noncompliance as a contributing factor. A1C is 13 reflective of poor overall control. Pt did test positive for COVID in the ED but denies any significant symptoms prior to today. Has maintained oxygen saturation at 96% and avove and has remained asymptomatic during admission. Is off of precautions as of today. Recurrent DKA likely secondary to pump mismanagement and has been under care of assistant health educator and patient now stating she understands how to use the insulin pump. There is a question of worsening depression since losing her mother this summer and one of her daughters is estranged. Lives with grandson, who is attending college locally and unable to care for her at home. Psychiatric service consulted who increased Fluoxetine to 60 mg. Will be referred to outpatient psychiatry service for continued care. Patient comfortable with discharge plan and has upcoming appointment with guest associate this coming August 26. Total Time Total Time Spent Total Time Spent (In Minutes): 45 Discharge Plan Discharge Items Patient Disposition: Home - Home Health Services Reason For Visit: DKA, COVID Discharge Diagnosis: Diabetic ketoacidosis COVID-19 infection Activity: Resume your previous activity Activity Comment: Always ambulate carefully Lifting: Wait until after follow-up appointment Exercise/Sports: Wait until after follow-up appointment Driving/Machine Use: No driving until reevaluated and allowed by primary care physician Non-emergency contact: Primary Care Provider Call non-emergency contact if: you have any medication questions, your symptoms worsen, your pain is not controlled, your pain is worsening, your pain is unusual for you, your pain is concerning for you and you have a fever Follow-up/Referrals: Oswaldo Saxena MD [Primary Care Provider] - (Date & Time 08/25/2022 9:00 AM Provider Oswaldo Saxena MD Department [facility] ) Diet: Carb Consistent or DM2 and Other - See Diet Comment Diet Comment: Diabetic type I diet Addtl Attending Provider Instructions: INCREASE YOUR FLUOXETINE FROM 40 MG TO 60 MG DAILY. PLEASE FOLLOW SOFT DRINK POWDER MIXER INSTRUCTIONS CAREFULLY. USE INSULIN PUMP CORRECTLY, EVERY DAY DIRECTED. FOLLOW DIABETES DIET. TO AVOID LIFE-THREATENING MEDICAL CONDITION-DIABETIC KETOACIDOSIS. PLEASE FOLLOW-UP WITH YOUR CLINICAL SUPPORT TECH AND PRIMARY CARE PHYSICIAN SCHEDULED. PLEASE CALL YOUR PRIMARY CARE PHYSICIAN OR RETURN TO THE ER IF WITH WORSENING OF SYMPTOMS, INCLUDING Blood sugar persistently above 200, weakness, nausea or vomiting, abdominal pain, Fevers or chills, shortness of breath, cough, Worsening depression symptoms, etc. FOLLOW UP WITH PRIMARY CARE PHYSICIAN in 1 week. The clinic will be calling you for the appointment. ESTABLISH AND FOLLOW-UP CLOSELY WITH OUTPATIENT PSYCHIATRY PROVIDER. Home Isolation COVID-19 Instructions-he can come out of isolation from 08/22/2022 The following information about Home Isolation is from the CDC Website: https://www.cdc.gov/coronavirus/2019-ncov/hcp/ebsmeyra-badgyek-mosenj.html Stay home except to get medical care People who are mildly ill with COVID-19 are able to isolate at home during their illness. You should restrict activities outside your home, except for getting medical care. Do not go to work, school, or public areas. Avoid using public transportation, ride-sharing, or taxis. Separate yourself from other people and animals in your home People: As much as possible, you should stay in a specific room and away from other people in your home. Also, you should use a separate bathroom, if available. Animals: You should restrict contact with pets and other animals while you are sick with COVID-19, just like you would around other people. Although there have not been reports of pets or other animals becoming sick with COVID-19, it is still recommended that people sick with COVID-19 limit contact with animals until more information is known about the virus. When possible, have another member of your household care for your animals while you are sick. If you are sick with COVID-19, avoid contact with your pet, including petting, snuggling, being kissed or licked, and sharing food. If you must care for your pet or be around animals while you are sick, wash your hands before and after you interact with pets and wear a face mask. Call ahead before visiting your doctor If you have a medical appointment, call the healthcare provider and tell them that you have or may have COVID-19. This will help the healthcare providers office take steps to keep other people from getting infected or exposed. Wear a face mask You should wear a face mask when you are around other people (e.g., sharing a room or vehicle) or pets and before you enter a healthcare providers office. If you are not able to wear a face mask (for example, because it causes trouble breathing), then people who live with you should not stay in the same room with you, or they should wear a face mask if they enter your room. Cover your coughs and sneezes Cover your mouth and nose with a tissue when you cough or sneeze. Throw used tissues in a lined trash can. Immediately wash your hands with soap and water for at least 20 seconds or, if soap and water are not available, clean your hands with an alcohol-based hand planning official that contains at least 60% alcohol. Clean your hands often Wash your hands often with soap and water for at least 20 seconds, especially after blowing your nose, coughing, or sneezing; going to the bathroom; and before eating or preparing food. If soap and water are not readily available, use an alcohol-based hand planning official with at least 60% alcohol, covering all surfaces of your hands and rubbing them together until they feel dry. Soap and water are the best option if hands are visibly dirty. Avoid touching your eyes, nose, and mouth with unwashed hands. Avoid sharing personal household items You should not share dishes, drinking glasses, cups, eating utensils, towels, or bedding with other people or pets in your home. After using these items, they should be washed thoroughly with soap and water. Clean all high-touch surfaces everyday High touch surfaces include counters, tabletops, doorknobs, bathroom fixtures, toilets, phones, keyboards, tablets, and bedside tables. Also, clean any surfaces that may have blood, stool, or body fluids on them. Use a household cleaning spray or wipe, according to the label instructions. Labels contain instructions for safe and effective use of the cleaning product including precautions you should take when applying the product, such as wearing gloves and making sure you have good ventilation during use of the product. Monitor your symptoms Seek prompt medical attention if your illness is worsening (e.g., difficulty breathing).Beforeseeking care, call your healthcare provider and tell them that you have, or are being evaluated for, COVID-19. Put on a face mask before you enter the facility. These steps will help the healthcare providers office to keep other people in the office or waiting room from getting infected or exposed. Ask your healthcare provider to call the local or state health department. Persons who are placed under active monitoring or facilitated self- monitoring should follow instructions provided by their local health department or occupational health professionals, as appropriate. When working with your local health department check their available hours. If you have a medical emergency and need to call 911, notify the dispatch personnel that you have, or are being evaluated for COVID-19. If possible, put on a face mask before emergency medical services arrive. Discontinuing home isolation Patients with confirmed COVID-19 should remain under home isolation precautions until the risk of secondary transmission to others is thought to be low. The decision to discontinue home isolation precautions should be made on a [id number] basis, in consultation with healthcare providers and [facility] and local health departments. Pending Studies at Discharge: No Stand-Alone Forms: [facility], Smoking Cessation Medications and DC Order Prescriptions: New fluoxetine 20 mg Capsule 60 mg PO DAILY 30 Days Qty: 90 0RF Continued (DME) Dexcom G6 Elevator Erector Misc See Rx Instructions .ROUTE .MEDSUPPLY Qty: 9 4RF Rx Instructions: Use with dexcom g6 system E10.65 (DME) Dexcom G6 Transmitter Device See Rx Instructions .ROUTE .MEDSUPPLY Qty: 1 3RF Rx Instructions: Change every 90 days E10.65 (DME) OneTouch Ultra Test Strip See Rx Instructions .Route Qty: 400 3RF Rx Instructions: Test four times daily (DME) blood-glucose meter [OneTouch Ultra2 Meter] Kit See Rx Instructions .Route Qty: 1 0RF Rx Instructions: Test blood sugars 4 times a day insulin aspart U-100 [Novolog U-100 Insulin aspart] 100 unit/mL solution See Rx Instructions continuous subcutaneous infusion DAILY Qty: 90 0RF Rx Instructions: via continuous subcutaneous infusion daily; TDD 100 units aspirin [Adult Low Dose Aspirin] 81 mg tablet,delayed release (DR/EC) 81 mg PO DAILY diphenhydramine HCl 25 mg capsule 25 mg PO HS PRN (Reason: Sleep) Rx Instructions: 25 mg PO at bedtime PRN; fluocinonide 0.05 % solution 1 applic topical DAILY levothyroxine 125 mcg tablet 125 mcg PO DAILY lansoprazole 30 mg capsule,delayed release(DR/EC) 30 mg PO DAILYBB zolpidem 10 mg tablet 10 mg PO HS PRN (Reason: Sleep) trazodone 50 mg tablet 50 mg PO HS simvastatin 10 mg tablet 10 mg PO DAILY lisinopril 5 mg tablet 5 mg PO DAILY Phospha 250 Neutral 250 mg Tablet 1 tab PO QID Qty: 16 0RF Discontinued fluoxetine 40 mg capsule 40 mg PO DAILY Discharge Orders: Discharge Order (Routine); Ordered 08/21/22 Ordered By: Shayy Patel Admission Data Admit Date/Time: 08/11/22 18:39 Attending Provider: Ciaran Bose Admit Provider: Kristen Willard Primary Care Provider: Oswaldo Saxena Other Providers: Kristen Willard ; Jarret Contreras ; Roopa Davis ; Mikayla Thomas ; Anisa Morales ; Shayy Patel Other Interventions: Discharge Summary Assessment (RN) Last Done: 08/21/22 18:38 Supervising Physician Co-Signing Physician Notes Attending addendum The patient was seen and examined in medical floor She has been feeling better and did not have any more hypoglycemic episode for t he last 24 hours plus She knows how to take care of the pump and she is agreeable to go home She does have appointment with guest associate on 13 of this month On examination Remains hemodynamically stable Chestclear to auscultate bilaterally HeartS1, S2 regular Abdomenbenign Extremitiesnegative for any edema Her labs and medications reviewed Insulin-dependent diabetes on insulin pump She has been stable and can be discharged home this afternoon Agree with assessment and plan as outlined above by AURELIA Stone Dr
== END 2022-08-21 21:11 | disposition home health service (06) | DRG 637 ==
LOC: ED 15:32 → SUATTDRO 18:39 → 1E 18:39 → 3W 08-12 19:29

== ENCOUNTER 2024-10-09 01:30 | Observation (INO) ==
--- NOTE | 2024-10-09 02:07 | Emergency Department Note ---
Impression & Plan Closed fibular fracture, Fall Admit to the [facility] ED Provider Note NAME: KENZIE CANTRELL AGE: 69 SEX: Female INFORMANT: Patient ED PROVIDER(S): Katie Samaniego DO CHIEF COMPLAINT: Fall PLAN: Disposition: Admit to the [facility] MEDICAL DECISION MAKING: this is a 69-year-old female patient with history of memory loss who fell while in the bathroom this evening when her stepped out. The heard her fall and went into the bathroom to assist her. She complained of right ankle and foot pain. He apparently sat on the floor with her for approximately 2 hours to determine whether she felt okay but decided to call for help. The patient complains of right ankle pain and head pain. I did obtain the records from [facility] and it seems if she is not on any blood thinning medication. She has no outward signs of trauma except for a contusion to her right proximal tib-fib region and edema to the lateral malleolus of that extremity. Laboratory studies reveal a glucose of 140. Coagulation studies were normal. Renal function was normal. Urinalysis was unremarkable. White blood cell count was elevated at 16.4 H&H were stable. X-ray confirms the patient has a right distal fibular fracture. CT scan of the brain and cervical spine were negative. The patient declined wanting anything for pain. Initially I had discussed outpatient planning with the patient and her and there seem to be some confusion as to how the patient ambulates about the house. She does not use a walker or cane as an assist device but it seems that the patient's helps her around the home with significant assistance. And also he explained that over the past couple of days he has had to assist her more significantly as she has become increasingly weak. Nursing staff attempted to help the patient to the bathroom and we initially planned for discharge to home in a wheelchair to follow-up as an outpatient with orthopedics but this would not be possible. [facility] for [facility] care and orthopedic evaluation. Care/management discussed with: manager application development and [facility] Triage Nursing notes: reviewed and agree With them. Vital Signs: reviewed and remarkable for no significant abnormalities Additional History obtained from: Patient's who is at the bedside Chronic Medical/Social Conditions affecting care: memory loss Differential Diagnosis: closed head injury, intracranial hemorrhage, C-spine injury, tib-fib fracture, right ankle fracture,, CVA hypoglycemia, UTI, dehydration Diagnostics, independently interpreted by me: ECG: Normal sinus rhythm at a rate of [address] segment elevation or signs of ischemia. There is no ectopy. Cardiac Monitoring: Normal sinus rhythm at a rate of 77 Imaging studies: [facility] C-spine: As per [facility] Right tib-fib: No proximal tib-fib fracture as per my independent interpretation but there was evidence of a lateral distal fibular fracture Right ankle: Lateral distal fibular fracture as per my independent interpretation HPI: 69 year old Female arrives for evaluation of Fall. Patient had been in the bathroom with her when he had to quickly leave to take care of his own needs. The patient heard a thud/crash and return to the bathroom to find her on the ground complaining of pain to her right ankle and head. There did not seem to be any loss of consciousness. It seems the patient may have remained on the floor for some time while they were determining whether or not she required evaluation in the emergency department. PAST MEDICAL HISTORY: memory loss, anxiety, type 2 diabetes, GERD, hypertension, hypothyroidism SOCIAL HISTORY: lives with her who is a primary caregiver for her, HOME MEDICATIONS: see list ALLERGIES: see list VITALS: See Below PHYSICAL EXAMINATION: HEENT: Head - normocephalic and atraumatic. Pupils are equal, round, and reactive to light. Extraocular eye muscles are intact and sclera are anicteric. Ears - bilaterally patent canals with no evidence of hemotympanum. Nose - moist nasal mucosa without evidence of trauma or discharge. Mouth - moist buccal mucosa with no trauma to the teeth or signs of malocclusion. Neck: The neck is supple and there is no pain to palpation over the posterior cervical spine and no obvious step-offs or deformities. There is no JVD or tracheal deviation. Chest: There are no signs of deformities, contusions or abrasions to the chest wall. There is no obvious crepitus or paradoxical chest rise. Heart: Regular, rate, and rhythm. There is a normal S1 and S2 with no murmurs, clicks, or gallops appreciated. Lungs: Clear to auscultation bilaterally with no wheezes, rales, or rhonchi. Abdomen: Soft, completely nontender, nondistended, with good bowel sounds. There is no sign of trauma such as contusions, abrasions or penetrations. There are no palpable pulsatile masses or hepatosplenomegaly. There is no guarding, rigidity, or rebound noted. Pelvis: Stable to rock and compression. Extremities: There is a contusion noted over the proximal right tib-fib and edema noted over the right lateral malleolus. There are easily palpable dorsalis pedis and posterior tibial pulses in both lower extremities. Upper extremities are without evidence of trauma. Neuro: The patient is awake and alert and easily able to follow commands. Muscle strength is 5 out of 5 in all 4 extremities. The patient seems confused with answering some questions but is seems to be her baseline with memory loss. Emergency Department course: The patient was evaluated in room C-8. A complete history and physical was performed. Laboratory studies were drawn as above. An order was placed for continuous cardiac monitoring. The patient was in a normal sinus rhythm at a rate of 77. A twelve-lead EKG was obtained as described above. Patient went for plain films of the right ankle and right tib-fib. She had a CT scan of her brain and cervical spine. I reviewed results of the laboratory studies, x-rays and CTs with the patient and her . A urine specimen was obtained. Ortho-Glass splinting material was applied to the right lower extremity. I checked sensation in her toes and capillary refill in the toes after the splint was applied and sensation and cap refill were intact. Initially, the plan was to discharge this patient to home with outpatient orthopedics follow-up but the patient was unable to ambulate or maneuver on her left leg with the assistance of a wheelchair so [facility] for [facility] care and consult orthopedics. Past Med/Surg History Problem List FH: cholecystectomy Fall (Acute) Closed fibular fracture (Acute) Surgical History H/O: hysterectomy Social History Smoking Status: Never smoker Do You Dip or Chew Tobacco: No; Hx Alcohol Use: No Hx Substance Use: No Preferred Language: Tuvaluan Communication Ability: Effective Candy Supervisor Required: No Beliefs That Will Affect Care: None Current Living Situation: Spouse Other Information That Helps Us Care for You: No Feels Safe at Home: Yes Safety Concerns: Feels Safe At This Time Assistive Devices: Glasses Allergies Allergies Allergy/AdvReac Type Severity Reaction Status Date / Time No Known Allergies Allergy Unverified 10/09/24 10:00 Home Meds Home Medications Medication Instructions Recorded Confirmed cholestyramine (with sugar) 4 gram 4 ea PO TID 10/09/24 10/09/24 oral powder (Questran) fluoxetine 20 mg capsule 20 mg PO BID 10/09/24 10/09/24 hydrochlorothiazide 12.5 mg tablet 12.5 mg PO QAM 10/09/24 10/09/24 insulin aspart U-100 100 unit/mL See Rx Instructions .Route .COMPLEX 10/09/24 10/09/24 (3 mL) subcutaneous pen (Novolog FlexPen U-100 Insulin aspart) insulin glargine U-300 conc 300 82 unit subcut QAM 10/09/24 10/09/24 unit/mL (3 mL) subcutaneous pen (Toujeo Max U-300 SoloStar) levothyroxine 125 mcg tablet 125 mcg PO DAILYBB 10/09/24 10/09/24 lisinopril 5 mg tablet 5 mg PO QAM 10/09/24 10/09/24 magnesium 250 mg tablet 250 mg PO BID 10/09/24 10/09/24 melatonin 10 mg tablet 10 mg PO HS PRN If 20mg TR doesn't 10/09/24 10/09/24 work melatonin 10 mg tablet,extended 20 mg PO HS 10/09/24 10/09/24 release sennosides 8.6 mg tablet (senna) 8.6 mg PO DAILY PRN Constipation 10/09/24 10/09/24 simvastatin 10 mg tablet 10 mg PO HS 10/09/24 10/09/24 Results & Data (ED) Vital Signs Vital Signs - 24 hr 10/09/24 01:35 10/09/24 01:36 10/09/24 01:36 Temperature Pulse Rate 90 85 89 Pulse Rate [Left Finger] Pulse Rate from SpO2 Sensor 89 Pulse Rhythm Regular Pulse Rhythm [Left Finger] Pulse Strength Normal Pulse Strength [Left Finger] Pulse Strength [Right Carotid] Respiratory Rate 20 16 Respiratory Effort / Characteristics Non-Labored Spontaneous Respiratory Depth Normal Respiratory Pattern Regular Blood Pressure 149/72 H 149/72 H Blood Pressure [Right Arm] Blood Pressure Mean 97 97 Blood Pressure Mean [Right Arm] Blood Pressure Position Lying Blood Pressure Position [Right Arm] Pulse Oximetry 96 95 Oxygen Delivery Method Room Air Oxygen Flow Rate Sepsis Recent Fever Within 48 Hours No Sepsis New/Unexplained Change in Mental Status N/A Sepsis Action Taken by Nursing No Action Required 10/09/24 01:45 10/09/24 03:00 10/09/24 03:30 Temperature Pulse Rate 88 85 83 Pulse Rate [Left Finger] Pulse Rate from SpO2 Sensor 85 82 Pulse Rhythm Regular Pulse Rhythm [Left Finger] Pulse Strength Pulse Strength [Left Finger] Pulse Strength [Right Carotid] Respiratory Rate 20 21 22 Respiratory Effort / Characteristics Respiratory Depth Respiratory Pattern Blood Pressure 161/80 H 137/61 Blood Pressure [Right Arm] Blood Pressure Mean 109 98 Blood Pressure Mean [Right Arm] Blood Pressure Position Blood Pressure Position [Right Arm] Pulse Oximetry 96 95 95 Oxygen Delivery Method Room Air Oxygen Flow Rate Sepsis Recent Fever Within 48 Hours Sepsis New/Unexplained Change in Mental Status Sepsis Action Taken by Nursing 10/09/24 03:32 10/09/24 03:32 10/09/24 04:00 Temperature 36.6 C Pulse Rate 83 84 Pulse Rate [Left Finger] 83 Pulse Rate from SpO2 Sensor 84 Pulse Rhythm Pulse Rhythm [Left Finger] Regular Pulse Strength Pulse Strength [Left Finger] Normal Pulse Strength [Right Carotid] Normal Respiratory Rate 20 20 21 Respiratory Effort / Characteristics Non-Labored Spontaneous Respiratory Depth Normal Respiratory Pattern Regular Blood Pressure 137/61 156/68 H Blood Pressure [Right Arm] 137/61 Blood Pressure Mean 97 Blood Pressure Mean [Right Arm] 86 Blood Pressure Position Blood Pressure Position [Right Arm] Lying Pulse Oximetry 96 96 97 Oxygen Delivery Method Room Air Room Air Oxygen Flow Rate 0 Sepsis Recent Fever Within 48 Hours Sepsis New/Unexplained Change in Mental Status Sepsis Action Taken by Nursing 10/09/24 04:32 10/09/24 05:06 10/09/24 05:30 Temperature Pulse Rate 91 H 86 Pulse Rate [Left Finger] 84 Pulse Rate from SpO2 Sensor 92 H Pulse Rhythm Pulse Rhythm [Left Finger] Regular Pulse Strength Pulse Strength [Left Finger] Normal Pulse Strength [Right Carotid] Respiratory Rate 21 19 20 Respiratory Effort / Characteristics Non-Labored Respiratory Depth Normal Respiratory Pattern Regular Blood Pressure 196/97 H 139/71 Blood Pressure [Right Arm] 156/68 H Blood Pressure Mean 155 Blood Pressure Mean [Right Arm] 97 Blood Pressure Position Blood Pressure Position [Right Arm] Lying Pulse Oximetry 97 97 95 Oxygen Delivery Method Room Air Room Air Oxygen Flow Rate Sepsis Recent Fever Within 48 Hours Sepsis New/Unexplained Change in Mental Status Sepsis Action Taken by Nursing 10/09/24 05:33 10/09/24 08:15 Temperature Pulse Rate Pulse Rate [Left Finger] 86 Pulse Rate from SpO2 Sensor Pulse Rhythm Pulse Rhythm [Left Finger] Pulse Strength Pulse Strength [Left Finger] Pulse Strength [Right Carotid] Respiratory Rate 18 Respiratory Effort / Characteristics Respiratory Depth Respiratory Pattern Blood Pressure Blood Pressure [Right Arm] 145/51 H Blood Pressure Mean Blood Pressure Mean [Right Arm] 82 Blood Pressure Position Blood Pressure Position [Right Arm] Pulse Oximetry 96 95 Oxygen Delivery Method Room Air Room Air Oxygen Flow Rate Sepsis Recent Fever Within 48 Hours Sepsis New/Unexplained Change in Mental Status Sepsis Action Taken by Nursing Laboratory Data 10/09/24 01:55 10/09/24 01:55 Lab Results 10/09/24 10/09/24 Range/Units 01:55 04:22 WBC 16.40 H (4.8-10.8) K/ul RBC 4.91 (4.20-5.40) M/uL Hgb 13.6 (12.0-16.0) g/dl Hct 41.7 (37.0-47.0) % MCV 84.9 (80.0-100.0) fL MCH 27.7 (25.0-34.0) pg MCHC 32.6 (32.0-36.0) g/dL RDW Std Deviation 49.4 H (36.4-46.3) fL RDW Coeff of Rossi 15.9 H (11.5-14.5) % Plt Count 418 H (130-400) K/uL MPV 9.9 (9.4-12.4) fL Immature Gran % (Auto) 0.5 % Neut % (Auto) 69.9 % Lymph % (Auto) 19.7 % Scott % (Auto) 8.1 % Eos % (Auto) 1.2 % Baso % (Auto) 0.6 % Neut # (Auto) 11.45 H (1.40-6.50) K/uL Lymph # (Auto) 3.23 (1.20-3.40) K/uL Scott # (Auto) 1.33 H (0.11-0.59) K/uL Eos # (Auto) 0.20 (0.00-0.50) K/uL Baso # (Auto) 0.10 (0.00-0.20) K/uL Immature Gran # (Auto) 0.09 (0.01-0.20) K/uL PT 10.6 (9.0-12.0) Seconds INR 1.0 (0.9-1.1) APTT 27 (21-31) Seconds PTT Ratio 1.0 Sodium 134 L (136-145) mmol/L Potassium 3.9 (3.5-5.1) mmol/L Chloride 98 (98-107) mmol/L Carbon Dioxide 27 (21-32) mmol/L Anion Gap 9 (3-11) BUN 17 (6-23) mg/dl Creatinine 0.89 (0.6-1.2) mg/dl Est Cr Clr Drug Dosing 74.0 ml/min eGFR 70.14 BUN/Creatinine Ratio 19.1 (10-20) Glucose 140 H (70-99(Fasting)) mg/dl POC Glucose 117 H (70-99) mg/dl Calcium 9.4 (8.6-10.3) mg/dl Total Bilirubin 0.5 (0.2-1.0) mg/dl AST 26 (13-39) U/L ALT 25 (7-52) U/L Alkaline Phosphatase 89 (34-104) U/L Total Protein 7.5 (6.0-8.3) gm/dl Albumin 4.5 (3.4-5.0) gm/dl Globulin 3.0 (2.5-4.0) gm/dl Albumin/Globulin Ratio 1.5 (0.9-2) Lipase 26 (11-82) U/L Procalcitonin < 0.02 (0-0.5) ng/ml Administered Medications Cholestyramine Resin (Cholestyramine Light 4 Gm Pkt) 4 gm PO DAILY@1200 CLAUDIA Stop: 11/08/24 13:59 Last Admin: 10/09/24 13:03 Dose: 4 gm Documented By: WRM Heparin Sodium (Porcine) (Heparin Sod 5,000 Unit/0.5 Ml Vial) 5,000 units SQ Q8 CLAUDIA Stop: 11/08/24 13:59 Last Admin: 10/09/24 13:03 Dose: 5,000 units Documented By: DECLAN Hydrochlorothiazide (Hydrochlorothiazide 25 Mg Tab) 12.5 mg PO DAILY CLAUDIA Stop: 11/08/24 11:29 Last Admin: 10/09/24 11:55 Dose: 12.5 mg Documented By: DECLAN Insulin Aspart (Insulin Aspart Per Unit Charge) 0 units SC ACHS CLAUDIA Stop: 11/08/24 11:29 Last Admin: 10/09/24 11:58 Dose: 8 units Documented By: DECLAN Co-signed By: SANCHO Lisinopril (Lisinopril 5 Mg Tab) 5 mg PO DAILY [facility] Stop: 11/08/24 11:29 Last Admin: 10/09/24 11:55 Dose: 5 mg Documented By: DECLAN Oxycodone/Acetaminophen (Oxycodone/Acetaminophen 5mg/325mg Tab) 1 tab PO Q4H PRN PRN Reason: Mild-Mod Pain (Scale 1-6) Stop: 10/23/24 10:46 Last Admin: 10/09/24 13:03 Dose: 1 tab Documented By: DECLAN Discontinued Medications Sennosides (Senna 8.6 Mg Tab) 8.6 mg PO NOW STA Stop: 10/09/24 10:03 Last Admin: 10/09/24 11:51 Dose: Not Given Documented By: DECLAN Imaging Data Radiologist's Impression: Ankle X-Ray 10/09/24 01:45 EXAM: XR ankle RT min 3V routine CLINICAL HISTORY: FALL RT ANKLE PAIN. TECHNIQUE: X-ray images of the right ankle were obtained in anteroposterior (AP), and lateral projections. COMPARISON: No prior studies are available for comparison. FINDINGS: Bone Structure: Oblique right distal fibula fracture, above the syndesmosis. Not reaching the articular surface. No displacement of the distal fragment. No joint space widening. Generalized reduced bone density. Joint Spaces: Osteoarthritic changes are seen as marginal osteophytes and subchondral erosion. No evidence of joint effusion or subluxation. Soft Tissues: Soft tissue swelling was seen along the lateral malleolus. Additional Findings: No signs of osteoarthritis, bone spurs, lytic or sclerotic lesions. IMPRESSION: 1. Oblique right distal fibula fracture, above the syndesmosis. Soft tissue swelling seen along the lateral malleolus. Clinical correlation and MRI ankle is advised if indicated. 2. Osteoarthritic changes of joint spaces. Disclaimer: A subtle bone abnormality or fracture may not be readily apparent on X-rays, thus clinical correlation and further imaging including follow-up CT, MRI, or follow-up X-rays are advised as needed. Electronically signed by Randolph Banks 10-09-2024 03:[address] 10/09/24 01:45 EXAM: CT cervical spine wo con CLINICAL HISTORY: Fall, injury to the superior portion of the head, r/o neck trauma. TECHNIQUE: A CT scan of the cervical spine was performed without the administration of intravenous contrast. Contiguous axial images were obtained from the skull base to the upper thoracic spine. Coronal and sagittal reformatted images were also reviewed. One of the following dose-reduction techniques was utilized for this exam. Automated exposure control, adjustment of the mA and/or kV according to patient size, and use of iterative reconstruction. DLP: 1148.22 mGy-cm, CTDI: 64.1 mGy. COMPARISON: No previous studies are available for comparison. FINDINGS: Vertebrae: Straightening of the cervical spine. Atlantoaxial osteoarthritis. Multilevel marginal osteophytes. The vertebral bodies are normal in height and alignment. No evidence of acute fracture or dislocation. No signs of lytic or sclerotic lesions. Normal configuration of the posterior elements. Intervertebral Discs and Neural Foramina: Reduced intervertebral disc spaces with degenerative changes mainly through C4-C7 levels. Multilevel disc osteophyte complexes cause spinal canal stenosis and bilateral neural foraminal narrowing, mainly through C4-C7. Facet Joints: Multilevel facet joint neuropathy. Prevertebral Soft Tissues: The prevertebral soft tissues are normal in thickness, without evidence of mass or abnormal fluid collection. Additional Findings: No other significant findings are noted in the visualized soft tissue structures or bony elements. IMPRESSION: 1. No evidence of acute bony fracture. 2. Straightening of the cervical spine, likely due to muscle spasm. 3. Cervical spondylotic changes with multilevel disc osteophyte complexes cause variable degrees of neural compromise as detailed above. Recommend MRI of cervical spine for better evaluation clinically. Electronically signed by Randolph Banks 10-09-2024 03:26 AM Chest X-Ray 10/09/24 01:45 EXAM: XR chest 1V portable CLINICAL HISTORY: FALL RT ANKLE PAIN JMF TECHNIQUE: An X-ray image of the chest is obtained in AP projection. COMPARISON: No prior studies are available for comparison. FINDINGS: Pulmonary Parenchyma: Prominent hilar and bronchovasular markings suggesting congestion. Patchy right lower zone infiltrate. Which could be infectious/inflammatory. Clinical correlation is advised. No evidence of pleural effusion or pleural thickening. Heart and Mediastinum: Heart size and shape are normal. No mediastinal widening or masses. No hilar or mediastinal lymphadenopathy. Bony Thorax: Bony thorax appears intact without fractures or deformities. Soft Tissues: Soft tissues overlying the chest wall are unremarkable. IMPRESSION: 1. Prominent hilar and bronchovascular markings suggesting congestion. 2. Patchy right lower zone infiltrate. Which could be infectious/inflammatory. Clinical correlation is advised. 3. No pleural effusion. Electronically signed by Randolph Banks 10-09-2024 03:[address] 10/09/24 01:45 EXAM: CT head/brain wo con CLINICAL HISTORY: fall, injury to superior portion of head, r/o trauma TECHNIQUE: Axial non-contrast CT scan of the brain was performed from the skull base to the high parietal region. One of the following dose reduction techniques were utilized for this exam: Automated exposure control, adjustment of the mA and/or kV according to patient size, use of iterative reconstruction. CTDI: 64.3 mGy , DLP: 1148.22 mGy-cm COMPARISON: None. FINDINGS: No evidence of acute infarct, hemorrhage, or mass effect. Brain Parenchyma: Multiple subcortical and periventricular white matter hypodensities likely represent chronic microvascular ischemic changes. Normal attenuation of the cerebral hemispheres, cerebellum, and brainstem. No abnormal areas of hyperattenuation. Ventricular System: A capacious ventricular system, denoting atrophic changes. No evidence of hydrocephalus. Subarachnoid Spaces: Capacious CSF spaces denote atrophic changes. No evidence of subarachnoid hemorrhage or extra-axial fluid collections. Cerebellum and Brainstem: Normal size and attenuation. No masses, lesions, or areas of abnormal attenuation. Orbits: Normal appearance of the globes, optic nerves, and extraocular muscles. No evidence of orbital masses or abnormal attenuation. Sinuses: Clear paranasal sinuses. No evidence of sinusitis or mucosal thickening. Mastoid Air Cells: Clear mastoid air cells. No evidence of mastoiditis. Skull and Meninges: Normal skull morphology. IMPRESSION: 1. No evidence of acute skull fracture or acute intracranial hemorrhage. 2. Chronic microvascular ischemic changes. 3. Senile brain atrophy changes. Electronically signed by Randolph Banks 10-09-2024 03:25 AM Tibia/Fibula X-Ray 10/09/24 01:45 EXAM: XR tibia fibula RT 2V CLINICAL HISTORY: FALL. RIGHT ANKLE PAIN. TECHNIQUE: X-rays of the right tibia and fibula were obtained in 2 views: AP (Anteroposterior) and lateral projections. COMPARISON: None. FINDINGS: Bone: Oblique right distal fibula fracture, above the syndesmosis. Not reaching the articular surface. No displacement of the distal fragment. No joint space widening. Soft Tissue: Soft tissue swelling was seen along the lateral malleolus. IMPRESSION: 1. Oblique right distal fibula fracture, above the syndesmosis. Soft tissue swelling was seen along the lateral malleolus. Clinical correlation and MRI ankle is advised if indicated. 2. Osteoarthritic changes of the scanned part of the knee joint. Disclaimer: A subtle bone abnormality or fracture may not be readily apparent on X-rays, thus clinical correlation and further imaging including follow-up CT, MRI, or follow-up X-rays are advised as needed. Electronically signed by Randolph Banks 10-09-2024 03:22 AM Discharge Plan Visit Data Chief Complaint: Trauma Stated Complaint: Fall, R Ankle Pain, Headache, Nausea ED Provider: Katie Samaniego Discharge Problem: Closed fibular fracture, Fall Patient Disposition: Admitted As Inpatient Discharge Instructions Interventions: ED Discharge Assessment Last Done: 10/09/24 10:16 Discharge Problem: Closed fibular fracture Qualifiers: Encounter type: initial encounter Fibula location: distal Fracture morphology: other fracture Laterality: right Qualified Code(s): S82.831A - Other fracture of upper and lower end of right fibula, initial encounter for closed fracture Fall Qualifiers: Encounter type: initial encounter Qualified Code(s): W19.XXXA - Unspecified fall, initial encounter
[2024-10-09 02:10] LABS: Basophils % (auto) 0.6 %; Eosinophils % (auto) 1.2 %; Hematocrit (blood only) 41.7 % (37.0-47.0); Hemoglobin 13.6 g/dl (12.0-16.0); Immature Granulocytes # (auto) 0.09 K/uL (0.01-0.20); Immature Granulocytes % (auto) 0.5 %; Lymphocytes # (auto) 3.23 K/uL (1.20-3.40); Lymphocytes % (auto) 19.7 %; Mean Corpuscular Hemoglobin 27.7 pg (25.0-34.0); Mean Corpuscular Hgb Conc 32.6 g/dL (32.0-36.0); Mean Corpuscular Volume 84.9 fL (80.0-100.0); Mean Platelet Volume 9.9 fL (9.4-12.4); Monocytes # (auto) 1.33 K/uL (0.11-0.59); Monocytes % (auto) 8.1 %; Neutrophils # (auto) 11.45 K/uL (1.40-6.50); Neutrophils % (auto) 69.9 %; Platelet Count 418 K/uL (130-400); RDW Coefficient of Variation 15.9 % (11.5-14.5); RDW Standard Deviation 49.4 fL (36.4-46.3); Red Blood Count 4.91 M/uL (4.20-5.40)
[2024-10-09 02:25] LABS: Albumin Globulin Ratio 1.5 (0.9-2); Albumin Level 4.5 gm/dl (3.4-5.0); BUN Creatinine Ratio 19.1 (10-20); Bilirubin,Total 0.5 mg/dl (0.2-1.0); Calcium 9.4 mg/dl (8.6-10.3); Potassium 3.9 mmol/L (3.5-5.1); Total Protein 7.5 gm/dl (6.0-8.3)
[2024-10-09 02:38] LABS: Partial Thromboplastin Time 27 Seconds (21-31); Prothrombin Time 10.6 Seconds (9.0-12.0)
--- NOTE | 2024-10-09 03:07 | XRay Report ---
EXAM: XR ankle RT min 3V routine CLINICAL HISTORY: FALL RT ANKLE PAIN. TECHNIQUE: X-ray images of the right ankle were obtained in anteroposterior (AP), and lateral projections. COMPARISON: No prior studies are available for comparison. FINDINGS: Bone Structure: Oblique right distal fibula fracture, above the syndesmosis. Not reaching the articular surface. No displacement of the distal fragment. No joint space widening. Generalized reduced bone density. Joint Spaces: Osteoarthritic changes are seen as marginal osteophytes and subchondral erosion. No evidence of joint effusion or subluxation. Soft Tissues: Soft tissue swelling was seen along the lateral malleolus. Additional Findings: No signs of osteoarthritis, bone spurs, lytic or sclerotic lesions. IMPRESSION: 1. Oblique right distal fibula fracture, above the syndesmosis. Soft tissue swelling seen along the lateral malleolus. Clinical correlation and MRI ankle is advised if indicated. 2. Osteoarthritic changes of joint spaces. Disclaimer: A subtle bone abnormality or fracture may not be readily apparent on X-rays, thus clinical correlation and further imaging including follow-up CT, MRI, or follow-up X-rays are advised as needed. Electronically signed by Randolph Banks 10-09-2024 03:07 AM
--- NOTE | 2024-10-09 03:22 | XRay Report ---
EXAM: XR tibia fibula RT 2V CLINICAL HISTORY: FALL. RIGHT ANKLE PAIN. TECHNIQUE: X-rays of the right tibia and fibula were obtained in 2 views: AP (Anteroposterior) and lateral projections. COMPARISON: None. FINDINGS: Bone: Oblique right distal fibula fracture, above the syndesmosis. Not reaching the articular surface. No displacement of the distal fragment. No joint space widening. Soft Tissue: Soft tissue swelling was seen along the lateral malleolus. IMPRESSION: 1. Oblique right distal fibula fracture, above the syndesmosis. Soft tissue swelling was seen along the lateral malleolus. Clinical correlation and MRI ankle is advised if indicated. 2. Osteoarthritic changes of the scanned part of the knee joint. Disclaimer: A subtle bone abnormality or fracture may not be readily apparent on X-rays, thus clinical correlation and further imaging including follow-up CT, MRI, or follow-up X-rays are advised as needed. Electronically signed by Randolph Banks 10-09-2024 03:22 AM
--- NOTE | 2024-10-09 03:23 | XRay Report ---
EXAM: XR chest 1V portable CLINICAL HISTORY: FALL RT ANKLE PAIN JMF TECHNIQUE: An X-ray image of the chest is obtained in AP projection. COMPARISON: No prior studies are available for comparison. FINDINGS: Pulmonary Parenchyma: Prominent hilar and bronchovasular markings suggesting congestion. Patchy right lower zone infiltrate. Which could be infectious/inflammatory. Clinical correlation is advised. No evidence of pleural effusion or pleural thickening. Heart and Mediastinum: Heart size and shape are normal. No mediastinal widening or masses. No hilar or mediastinal lymphadenopathy. Bony Thorax: Bony thorax appears intact without fractures or deformities. Soft Tissues: Soft tissues overlying the chest wall are unremarkable. IMPRESSION: 1. Prominent hilar and bronchovascular markings suggesting congestion. 2. Patchy right lower zone infiltrate. Which could be infectious/inflammatory. Clinical correlation is advised. 3. No pleural effusion. Electronically signed by Randolph Banks 10-09-2024 03:23 AM
--- NOTE | 2024-10-09 03:25 | CT Scan Report ---
EXAM: CT head/brain wo con CLINICAL HISTORY: fall, injury to superior portion of head, r/o trauma TECHNIQUE: Axial non-contrast CT scan of the brain was performed from the skull base to the high parietal region. One of the following dose reduction techniques were utilized for this exam: Automated exposure control, adjustment of the mA and/or kV according to patient size, use of iterative reconstruction. CTDI: 64.3 mGy , DLP: 1148.22 mGy-cm COMPARISON: None. FINDINGS: No evidence of acute infarct, hemorrhage, or mass effect. Brain Parenchyma: Multiple subcortical and periventricular white matter hypodensities likely represent chronic microvascular ischemic changes. Normal attenuation of the cerebral hemispheres, cerebellum, and brainstem. No abnormal areas of hyperattenuation. Ventricular System: A capacious ventricular system, denoting atrophic changes. No evidence of hydrocephalus. Subarachnoid Spaces: Capacious CSF spaces denote atrophic changes. No evidence of subarachnoid hemorrhage or extra-axial fluid collections. Cerebellum and Brainstem: Normal size and attenuation. No masses, lesions, or areas of abnormal attenuation. Orbits: Normal appearance of the globes, optic nerves, and extraocular muscles. No evidence of orbital masses or abnormal attenuation. Sinuses: Clear paranasal sinuses. No evidence of sinusitis or mucosal thickening. Mastoid Air Cells: Clear mastoid air cells. No evidence of mastoiditis. Skull and Meninges: Normal skull morphology. IMPRESSION: 1. No evidence of acute skull fracture or acute intracranial hemorrhage. 2. Chronic microvascular ischemic changes. 3. Senile brain atrophy changes. Electronically signed by Randolph Banks 10-09-2024 03:25 AM
--- NOTE | 2024-10-09 03:27 | CT Scan Report ---
EXAM: CT cervical spine wo con CLINICAL HISTORY: Fall, injury to the superior portion of the head, r/o neck trauma. TECHNIQUE: A CT scan of the cervical spine was performed without the administration of intravenous contrast. Contiguous axial images were obtained from the skull base to the upper thoracic spine. Coronal and sagittal reformatted images were also reviewed. One of the following dose-reduction techniques was utilized for this exam. Automated exposure control, adjustment of the mA and/or kV according to patient size, and use of iterative reconstruction. DLP: 1148.22 mGy-cm, CTDI: 64.1 mGy. COMPARISON: No previous studies are available for comparison. FINDINGS: Vertebrae: Straightening of the cervical spine. Atlantoaxial osteoarthritis. Multilevel marginal osteophytes. The vertebral bodies are normal in height and alignment. No evidence of acute fracture or dislocation. No signs of lytic or sclerotic lesions. Normal configuration of the posterior elements. Intervertebral Discs and Neural Foramina: Reduced intervertebral disc spaces with degenerative changes mainly through C4-C7 levels. Multilevel disc osteophyte complexes cause spinal canal stenosis and bilateral neural foraminal narrowing, mainly through C4-C7. Facet Joints: Multilevel facet joint neuropathy. Prevertebral Soft Tissues: The prevertebral soft tissues are normal in thickness, without evidence of mass or abnormal fluid collection. Additional Findings: No other significant findings are noted in the visualized soft tissue structures or bony elements. IMPRESSION: 1. No evidence of acute bony fracture. 2. Straightening of the cervical spine, likely due to muscle spasm. 3. Cervical spondylotic changes with multilevel disc osteophyte complexes cause variable degrees of neural compromise as detailed above. Recommend MRI of cervical spine for better evaluation clinically. Electronically signed by Randolph Banks 10-09-2024 03:26 AM
--- NOTE | 2024-10-09 10:15 | History & Physical Report ---
Date of Service October 09, 2024 Assessment & Plan (1) Closed fibular fracture: (2) Fall: Plan Right distal fibular fracture Secondary to fall Ambulatory dysfunction --Right Leg X ray:Oblique right distal fibula fracture, above the syndesmosis. Soft tissue swelling was seen along the lateral malleolus. Clinical correlation and MRI ankle is advised if indicated. Osteoarthritic changes of the scanned part of the knee joint. --Neck CT:No evidence of acute bony fracture. Straightening of the cervical spine, likely due to muscle spasm. Cervical spondylotic changes with multilevel disc osteophyte complexes cause variable degrees of neural compromise as detailed above. Recommend MRI of cervical spine for better evaluation clinically. --Head CT:No evidence of acute skull fracture or acute intracranial hemorrhage. Chronic microvascular ischemic changes. Senile brain atrophy changes. --Ankle X ray:Oblique right distal fibula fracture, above the syndesmosis. Soft tissue swelling seen along the lateral malleolus. Clinical correlation and MRI ankle is advised if indicated. Osteoarthritic changes of joint spaces. --Fall precautions PT/OT eval Consulted Orthopedics Pain Control Bowel regimen to prevent constipation Leukocytosis Likely reactive Abnormal chest x-ray:-Prominent hilar and bronchovascular markings suggesting congestion. Patchy right lower zone infiltrate. Which could be infectious/inflammatory. Clinical correlation is advised. Normal procalcitonin Patient denies any respiratory symptoms Urinalysis currently pending DM Type I: Update HbA1c ISS, basal Insulin, Accu checks, Diabetic diet Pharmacy Glycemic control consult Pharmacy to manage Insulin Hypothyroidism Continue levothyroxine Hypertension Continue lisinopril Hyperlipidemia Continue simvastatin Depression Continue fluoxetine Dementia Reorient frequently to minimize delirium Morbid obesity BMI 49 DVT Px: Heparin SQ CODE STATUS Full code Disposition Admit to [facility] Case management to help with discharge planning I personally interviewed and examined the patient at bedside. I have reviewed blood work and imaging studies personally.I spent a total [id number] coordinating, documenting, and providing care for this patient excluding time spent in the performance of separately billed services or time spent by another provider/QHP. History of Present Illness Chief Complaint: Fall. Ankle fracture Primary Care Provider: Oswaldo Saxena MD Patient is a 69-year-old female with history of type 1 diabetes mellitus, depression, dementia, dyslipidemia, hypothyroidism, hypertension, vitamin D deficiency and other medical problems presents with history of right ankle pain after a fall this morning. Patient is a poor historian secondary to memory issues. Most of the history is obtained from ER staff, old records and patient's family at bedside. Patient has been having generalized weakness for the last 2 to 3 days and today while walking to the bathroom patient fell which was unwitnessed. Patient has ambulatory dysfunction at baseline and has intermittent falls as per family. She does not use a cane or walker at baseline. Patient admits to have hit her head and had an a headache earlier today but later resolved. She reports having right ankle pain 9/10 intensity, sharp especially with movement. Patient was seen sitting in the bathroom when her heard her fall. Denies any history of chest pain, dyspnea, dizziness, cough, hemoptysis, fever, chills, loss of consciousness, focal weakness, change in vision, nausea, vomiting, abdominal pain, blood in stools, diarrhea, dysuria, hematuria, recent change in medications . Allergies Allergy/AdvReac Type Severity Reaction Status Date / Time No Known Allergies Allergy Unverified 10/09/24 10:00 Home Medications Medication Instructions Recorded Confirmed Type cholestyramine (with sugar) 4 gram 4 ea PO DAILY 10/09/24 10/09/24 History oral powder (Questran) fluoxetine 20 mg capsule 20 mg PO HS 10/09/24 10/09/24 History hydrochlorothiazide 12.5 mg tablet 12.5 mg PO DAILY 10/09/24 10/09/24 History insulin aspart U-100 100 unit/mL subcut 10/09/24 History (3 mL) subcutaneous pen (Novolog FlexPen U-100 Insulin aspart) insulin glargine U-300 conc 300 unit subcut 10/09/24 History unit/mL (3 mL) subcutaneous pen (Toujeo Max U-300 SoloStar) levothyroxine 125 mcg tablet 125 mcg DAILY 10/09/24 10/09/24 History lisinopril 5 mg tablet 5 mg PO DAILY 10/09/24 10/09/24 History simvastatin 10 mg tablet 10 mg DAILY 10/09/24 10/09/24 History Past Med/Surg History Problem List (Updated 10/09/24 @ 10:04 by Roman Bhakta MD) FH: cholecystectomy Fall (Acute) Closed fibular fracture (Acute) Surgical History (Updated 10/09/24 @ 10:05 by Roman Bhakta MD) H/O: hysterectomy Social History Smoking Status: Never smoker Preferred Language: [place] Feels Safe at Home: Yes Review of Systems Review of Systems: All systems reviewed & are unremarkable except as noted in Subjective Physical Exam Physical Exam: Physical Exam: Vitals signs as noted above General Appearance: Morbidly obese, no apparent distress Head: normocephalic, Atraumatic Eyes: normal inspection, EOMI Neck: supple, Trachea midline Respiratory/Chest: Normal breath sounds, CTA, No accessory muscle use Cardiovascular: S1, S2, No murmur Abdomen/GI:Soft, Non tender, Bowel sounds present Extremities/Musculoskeletal:normal inspection, Trace edema, Right Ankle in Splint, decreased ROM due to Pain Neurologic/Psych:AAOX2, grossly no focal neurological deficits Skin: normal color, warm Results & Data Results & Data Vital Signs (Past 12 Hours) Vital Signs Temp Pulse Pulse Resp BP BP Pulse Ox 10/09/24 08:15 86 18 145/51 H 95 10/09/24 05:33 96 10/09/24 05:30 86 20 139/71 95 10/09/24 05:06 91 H 19 196/97 H 97 10/09/24 04:32 84 21 156/68 H 97 10/09/24 04:00 84 21 156/68 H 97 10/09/24 03:32 36.6 C 83 20 137/61 96 10/09/24 03:32 83 20 137/61 96 10/09/24 03:30 83 22 137/61 95 10/09/24 03:00 85 21 161/80 H 95 10/09/24 01:45 88 20 96 10/09/24 01:36 89 16 149/72 H 95 10/09/24 01:36 85 20 149/72 H 96 10/09/24 01:35 90 O2 Del Method O2 Flow Rate 10/09/24 08:15 Room Air 10/09/24 05:33 Room Air 10/09/24 05:30 Room Air 10/09/24 05:06 10/09/24 04:32 Room Air 10/09/24 04:00 10/09/24 03:32 Room Air 0 10/09/24 03:32 Room Air 10/09/24 03:30 10/09/24 03:00 10/09/24 01:45 Room Air 10/09/24 01:36 10/09/24 01:36 Room Air 10/09/24 01:35 Laboratory Results Short CBC 10/09/24 Range/Units 01:55 WBC 16.40 H (4.8-10.8) K/ul Hgb 13.6 (12.0-16.0) g/dl Hct 41.7 (37.0-47.0) % Plt Count 418 H (130-400) K/uL BMP 10/09/24 01:55 Sodium 134 L Potassium 3.9 Chloride 98 Carbon Dioxide 27 BUN 17 Creatinine 0.89 Glucose 140 H Calcium 9.4 Liver Function 10/09/24 Range/Units 01:55 Total Bilirubin 0.5 (0.2-1.0) mg/dl AST 26 (13-39) U/L ALT 25 (7-52) U/L Alkaline Phosphatase 89 (34-104) U/L Albumin 4.5 (3.4-5.0) gm/dl Diagnostic Findings --Right Leg X ray:Oblique right distal fibula fracture, above the syndesmosis. Soft tissue swelling was seen along the lateral malleolus. Clinical correlation and MRI ankle is advised if indicated. Osteoarthritic changes of the scanned part of the knee joint. --Neck CT:No evidence of acute bony fracture. Straightening of the cervical spine, likely due to muscle spasm. Cervical spondylotic changes with multilevel disc osteophyte complexes cause variable degrees of neural compromise as detailed above. Recommend MRI of cervical spine for better evaluation clinically. --Head CT:No evidence of acute skull fracture or acute intracranial hemorrhage. Chronic microvascular ischemic changes. Senile brain atrophy changes. --CXR:Prominent hilar and bronchovascular markings suggesting congestion. Patchy right lower zone infiltrate. Which could be infectious/inflammatory. Clinical correlation is advised. --Ankle X ray:Oblique right distal fibula fracture, above the syndesmosis. Soft tissue swelling seen along the lateral malleolus. Clinical correlation and MRI ankle is advised if indicated. Osteoarthritic changes of joint spaces. ECG Additional Comments: --EKG: Normal sinus rhythm, nonspecific T wave changes, QTc 454 Code Status & VTE Plan VTE Prophylaxis Plan VTE Prophylaxis will be ordered: Yes (1) Closed fibular fracture Encounter type: initial encounter Fibula location: distal Fracture morphology: other fracture Laterality: right Qualified Code(s): S82.831A - Other fracture of upper and lower end of right fibula, initial encounter for closed fracture (2) Fall Encounter type: initial encounter Qualified Code(s): W19.XXXA - Unspecified fall, initial encounter
[2024-10-09] MEDS ORDERED: GLUCOSE 40% GEL 15 GM TUBE PO PRN (10:47)
[2024-10-09] MEDS ORDERED: LANTUS PER UNIT CHARGE SQ SCH (10:47)
[2024-10-09] MEDS ORDERED: DEXTROSE 50% 50 ML SYRINGE IV PRN (10:47)
[2024-10-09] MEDS ORDERED: GLUCOSE 10 TAB/TUBE PO PRN (10:47)
[2024-10-09] MEDS ORDERED: ACETAMINOPHEN 325 MG TAB PO PRN (10:47)
[2024-10-09] MEDS ORDERED: MoRPHine SULFATE 2 MG/ML CARP IV PRN (10:47)
[2024-10-09] MEDS ORDERED: POLYETHYLENE (MIRALAX) 17 GM PACK PO PRN (10:47)
[2024-10-09] MEDS ORDERED: ONDANSETRON INJ 2 MG/ML 2 ML VIAL IV PRN (10:47)
[2024-10-09] MEDS ORDERED: GLUCAGON FOR INJ 1 MG VIAL SQ PRN (10:47)
[2024-10-09] MEDS ORDERED: PHARMACY GLYCEMIC MGMT CONSULT PRN (10:47)
[2024-10-09 11:13] LABS: Appearance Urine Clear (Clear); Bilirubin Urine Negative (Negative); Blood Urine Negative (Negative); Color Urine Yellow; Glucose Urine UA Negative (Negative); Ketones Urine Negative (Negative); Leukocyte Esterase Urine Negative (Negative); Nitrite Urine Negative (Negative); Protein Urine Negative (Negative); Urobilinogen Urine Negative (Negative); pH Urine 6.5 (4.5-7.5)
[2024-10-09] MEDS: SENNA 8.6 MG TAB PO STA (11:51)
[2024-10-09] MEDS: hydroCHLOROthiazide 25 MG TAB PO SCH (11:55)
[2024-10-09] MEDS: lisinopril 5 MG TAB PO SCH (11:55)
[2024-10-09] MEDS: INSULIN ASPART PER UNIT CHARGE SC SCH (11:58)
[2024-10-09] MEDS: HEPARIN SOD 5,000 UNIT/0.5 ML VIAL SQ SCH (13:03)
[2024-10-09] MEDS: oxyCODONE/ACETAMINOPHEN 5mg/325mg TAB PO PRN (13:03)
[2024-10-09] MEDS: CHOLESTYRAMINE LIGHT 4 GM PKT PO SCH (13:03)
--- NOTE | 2024-10-09 13:59 | Pharmacy Report ---
Pharmacy Glycemic Short Note 2 - Date of Service October 09, 2024 - Glycemic Short BSG Results (Last 24 hours): 10/09/24 10/09/24 10/09/24 01:55 04:22 11:40 Glucose 140 H POC Glucose 117 H 184 H OUTPATIENT ANTIDIABETIC REGIMEN: * Toujeo 94 units SC qAM * Novolog SSI (~75 units/day) HbA1c: 6.1% ( 08/15/24) ASSESSMENT: * LN is a 69 year old female admitted with right distal fibular fracture secondary to a fall in the bathroom at home * Patient has long-standing history of T1DM - follows with [facility] * Per outpatient endocrine/diabetes notes, it appears is quite involved in diabetes care and will titrate insulin as needed * Patient's blood glucose has been very well-controlled recently (per notes and most recent HbA1c) * Called RN upon admission in order to clarify home doses and confirm last doses of insulin * Patient's reports giving patient 82 units of Toujeo and 25 units of Novolog this morning in the ED. He is aware not to administer any more insulin while patient is admitted. * Anticipating significantly lower insulin requirements while inpatient given very well-controlled HbA1c, prior inpatient glycemic data (albeit from 2021), and changes in diet * Diet ordered at this time. Orthopedic surgery consulted. PLAN FOR INPATIENT GLYCEMIC CONTROL: * Basal insulin * Toujeo 82 unit SC given this AM (as reported by patient's ) * Bolus insulin * NovoLog per scale ACHS or Q6hrs while NPO * Goal Range: Low 120 mg/dL - High 160 mg/dL * Correction Factor: 20 mg/dL/unit * Nutritional / Prandial insulin per carb ratio of 1 unit per 6 grams CHO consumed
--- NOTE | 2024-10-09 14:04 | Electrocardiogram Report ---
Test Reason : Blood Pressure : */* mmHG Vent. Rate : 87 BPM Atrial Rate : 87 BPM P-R Int : 168 ms QRS Dur : 80 ms QT Int : 378 ms P-R-T Axes : 49 46 40 degrees QTcB Int : 454 ms Normal sinus rhythm Normal ECG No previous ECGs available Confirmed by Tish Hidalgo (Supriya) on 10/09/2024 2:04:31 PM Referred By: REFERRED SELF Confirmed By: Tish Hidalgo
--- NOTE | 2024-10-09 15:25 | Orthopedic Consultation ---
Date of Consultation October 09, 2024 Assessment & Plan (1) Closed fibular fracture: Patient was seen in conjunction with Dr. Adi teague Who placed a short leg plaster cast on her right lower extremity. She was neurovascularly intact before and after application of the cast. Her foot was placed into a neutral position and held in place until the cast was completely molded. Patient was advised of the findings on x-ray and we feel that fracture can be managed nonsurgically with a cast in place. Patient is to be nonweightbearing for the next 6 weeks with crutch or Walker assistance. Will plan on seeing her back in the office in 2 weeks to obtain a set of x-rays with the cast in place. Connie santillan's right lower extremity should be elevated on pillows. This was relayed to the nursing staff. Primary management is with medicine service. Orthopedically patient is stable and we will follow-up with her in the office. With questions contact our clinic at [phone] Supervising Physician Co-Signing Physician Notes I saw and examined the patient, reviewed her chart and x-ray imaging, formulated the above plan, and performed the substantive portion of the visit. Agree with the above note. Will treat this patient nonsurgically in a cast nonweightbearing for the next 6 weeks. She will need to transition to a walking boot when she comes out of the cast. History of Present Illness Reason for Consultation: Nondisplaced right distal fibula fracture Requesting Physician: Oswaldo Oleary MD Attending Physician: Roman Bhakta MD History of Present Illness Patient is a 69-year-old female is seen in consultation for a right distal fibula fracture. Patient has a history of type 1 diabetes mellitus, depression, dementia, dyslipidemia, hypothyroidism, hypertension, vitamin D deficiency and other medical problems. Patient has been having generalized weakness for the last 2 to 3 days and yesterday evening while walking to the bathroom patient fell which was unwitnessed. Patient has ambulatory dysfunction at baseline and has intermittent falls as per family. She does not use a cane or walker at baseline. Denies any history of chest pain, dyspnea, dizziness, cough, hemopty sis, fever, chills, loss of consciousness, focal weakness, change in vision, nausea, vomiting, abdominal pain, blood in stools, diarrhea, dysuria, hematuria, recent change in medications . Allergies Allergy/AdvReac Type Severity Reaction Status Date / Time No Known Allergies Allergy Unverified 10/09/24 10:00 Home Medications Medication Instructions Recorded Confirmed Type cholestyramine (with sugar) 4 gram 4 ea PO TID 10/09/24 10/09/24 History oral powder (Questran) fluoxetine 20 mg capsule 20 mg PO BID 10/09/24 10/09/24 History hydrochlorothiazide 12.5 mg tablet 12.5 mg PO QAM 10/09/24 10/09/24 History insulin aspart U-100 100 unit/mL See Rx Instructions .Route .COMPLEX 10/09/24 10/09/24 History (3 mL) subcutaneous pen (Novolog FlexPen U-100 Insulin aspart) insulin glargine U-300 conc 300 82 unit subcut QAM 10/09/24 10/09/24 History unit/mL (3 mL) subcutaneous pen (Toujeo Max U-300 SoloStar) levothyroxine 125 mcg tablet 125 mcg PO DAILYBB 10/09/24 10/09/24 History lisinopril 5 mg tablet 5 mg PO QAM 10/09/24 10/09/24 History magnesium 250 mg tablet 250 mg PO BID 10/09/24 10/09/24 History melatonin 10 mg tablet 10 mg PO HS PRN If 20mg TR doesn't 10/09/24 10/09/24 History work melatonin 10 mg tablet,extended 20 mg PO HS 10/09/24 10/09/24 History release sennosides 8.6 mg tablet (senna) 8.6 mg PO DAILY PRN Constipation 10/09/24 10/09/24 History simvastatin 10 mg tablet 10 mg PO HS 10/09/24 10/09/24 History Patient History Surgical History H/O: hysterectomy Social History Smoking Status: Never smoker Do You Dip or Chew Tobacco: No; Hx Alcohol Use: No Hx Substance Use: No Preferred Language: Kinyarwanda Communication Ability: Effective Supervisor Paper Machine Required: No Beliefs That Will Affect Care: None Current Living Situation: Spouse Other Information That Helps Us Care for You: No Feels Safe at Home: Yes Safety Concerns: Feels Safe At This Time Assistive Devices: Glasses Review of Systems Review of Systems: All systems reviewed & are unremarkable except as noted in Subjective Physical Exam Physical Exam: Right ankle: Tenderness to palpation over the distal fibula with visible edema. There is also some slight edema over the anterior dorsum of the foot and ecchymosis at the base of her digits. She has no tenderness over the medial malleolus. There is no tenderness over the syndesmosis. She has no tenderness over the anterior talus. Her peripheral pulses are 2+. Her calf is soft and supple nontender to palpation. She is able to detect light sensation to touch over the pads of all digits, as well as move all of her digits. She is able to easily flex her knee to 90 degrees without pain or difficulty. Patient is neurovascularly intact. Results & Data Vital Signs (Past 12 Hours) Vital Signs Temp Pulse Pulse Resp BP BP Pulse Ox 10/09/24 15:15 37.0 C 84 18 123/74 94 10/09/24 10:48 37.0 C 86 16 157/80 H 96 10/09/24 10:16 82 19 164/76 H 95 10/09/24 10:03 84 18 167/76 H 97 10/09/24 08:15 86 18 145/51 H 95 10/09/24 05:33 96 10/09/24 05:30 86 20 139/71 95 10/09/24 05:06 91 H 19 196/97 H 97 10/09/24 04:32 84 21 156/68 H 97 10/09/24 04:00 84 21 156/68 H 97 10/09/24 03:32 36.6 C 83 20 137/61 96 10/09/24 03:32 83 20 137/61 96 10/09/24 03:30 83 22 137/61 95 O2 Del Method O2 Flow Rate 10/09/24 15:15 Room Air 10/09/24 10:48 Room Air 10/09/24 10:16 Room Air 10/09/24 10:03 Room Air 10/09/24 08:15 Room Air 10/09/24 05:33 Room Air 10/09/24 05:30 Room Air 10/09/24 05:06 10/09/24 04:32 Room Air 10/09/24 04:00 10/09/24 03:32 Room Air 0 10/09/24 03:32 Room Air 10/09/24 03:30 Diagnostic Findings Laboratory Results WBC 16.40 K/ul (4.8-10.8) H 10/09/24 01:55 RBC 4.91 M/uL (4.20-5.40) 10/09/24 01:55 Hgb 13.6 g/dl (12.0-16.0) 10/09/24 01:55 Hct 41.7 % (37.0-47.0) 10/09/24 01:55 MCV 84.9 fL (80.0-100.0) 10/09/24 01:55 MCH 27.7 pg (25.0-34.0) 10/09/24 01:55 MCHC 32.6 g/dL (32.0-36.0) 10/09/24 01:55 RDW Std Deviation 49.4 fL (36.4-46.3) H 10/09/24 01:55 RDW Coeff of Rossi 15.9 % (11.5-14.5) H 10/09/24 01:55 Plt Count 418 K/uL (130-400) H 10/09/24 01:55 MPV 9.9 fL (9.4-12.4) 10/09/24 01:55 Immature Gran % (Auto) 0.5 % 10/09/24 01:55 Neut % (Auto) 69.9 % 10/09/24 01:55 Lymph % (Auto) 19.7 % 10/09/24 01:55 Hand % (Auto) 8.1 % 10/09/24 01:55 Eos % (Auto) 1.2 % 10/09/24 01:55 Baso % (Auto) 0.6 % 10/09/24 01:55 Neut # (Auto) 11.45 K/uL (1.40-6.50) H 10/09/24 01:55 Lymph # (Auto) 3.23 K/uL (1.20-3.40) 10/09/24 01:55 Hand # (Auto) 1.33 K/uL (0.11-0.59) H 10/09/24 01:55 Eos # (Auto) 0.20 K/uL (0.00-0.50) 10/09/24 01:55 Baso # (Auto) 0.10 K/uL (0.00-0.20) 10/09/24 01:55 Immature Gran # (Auto) 0.09 K/uL (0.01-0.20) 10/09/24 01:55 PT 10.6 Seconds (9.0-12.0) 10/09/24 01:55 INR 1.0 (0.9-1.1) 10/09/24 01:55 APTT 27 Seconds (21-31) 10/09/24 01:55 PTT Ratio 1.0 10/09/24 01:55 Sodium 134 mmol/L (136-145) L 10/09/24 01:55 Potassium 3.9 mmol/L (3.5-5.1) 10/09/24 01:55 Chloride 98 mmol/L (98-107) 10/09/24 01:55 Carbon Dioxide 27 mmol/L (21-32) 10/09/24 01:55 Anion Gap 9 (3-11) 10/09/24 01:55 BUN 17 mg/dl (6-23) 10/09/24 01:55 Creatinine 0.89 mg/dl (0.6-1.2) 10/09/24 01:55 Est Cr Clr Drug Dosing 74.0 ml/min 10/09/24 01:55 eGFR 70.14 10/09/24 01:55 BUN/Creatinine Ratio 19.1 (10-20) 10/09/24 01:55 Glucose 140 mg/dl (70-99(Fasting)) H 10/09/24 01:55 POC Glucose 184 mg/dl (70-99) H 10/09/24 11:40 Calcium 9.4 mg/dl (8.6-10.3) 10/09/24 01:55 Total Bilirubin 0.5 mg/dl (0.2-1.0) 10/09/24 01:55 AST 26 U/L (13-39) 10/09/24 01:55 ALT 25 U/L (7-52) 10/09/24 01:55 Alkaline Phosphatase 89 U/L (34-104) 10/09/24 01:55 Total Protein 7.5 gm/dl (6.0-8.3) 10/09/24 01:55 Albumin 4.5 gm/dl (3.4-5.0) 10/09/24 01:55 Globulin 3.0 gm/dl (2.5-4.0) 10/09/24 01:55 Albumin/Globulin Ratio 1.5 (0.9-2) 10/09/24 01:55 Lipase 26 U/L (11-82) 10/09/24 01:55 Procalcitonin < 0.02 ng/ml (0-0.5) 10/09/24 01:55 Urine Color Yellow 10/09/24 11:00 Urine Appearance Clear (Clear) 10/09/24 11:00 Urine pH 6.5 (4.5-7.5) 10/09/24 11:00 Ur Specific [place] 1.010 (1.000-1.030) 10/09/24 11:00 Urine Protein Negative (Negative) 10/09/24 11:00 Urine Glucose (UA) Negative (Negative) 10/09/24 11:00 Urine Ketones Negative (Negative) 10/09/24 11:00 Urine Blood Negative (Negative) 10/09/24 11:00 Urine Nitrite Negative (Negative) 10/09/24 11:00 Urine Bilirubin Negative (Negative) 10/09/24 11:00 Urine Urobilinogen Negative (Negative) 10/09/24 11:00 Ur Leukocyte Esterase Negative (Negative) 10/09/24 11:00 Impressions Ankle X-Ray 10/09/24 01:45 EXAM: XR ankle RT min 3V routine CLINICAL HISTORY: FALL RT ANKLE PAIN. TECHNIQUE: X-ray images of the right ankle were obtained in anteroposterior (AP), and lateral projections. COMPARISON: No prior studies are available for comparison. FINDINGS: Bone Structure: Oblique right distal fibula fracture, above the syndesmosis. Not reaching the articular surface. No displacement of the distal fragment. No joint space widening. Generalized reduced bone density. Joint Spaces: Osteoarthritic changes are seen as marginal osteophytes and subchondral erosion. No evidence of joint effusion or subluxation. Soft Tissues: Soft tissue swelling was seen along the lateral malleolus. Additional Findings: No signs of osteoarthritis, bone spurs, lytic or sclerotic lesions. IMPRESSION: 1. Oblique right distal fibula fracture, above the syndesmosis. Soft tissue swelling seen along the lateral malleolus. Clinical correlation and MRI ankle is advised if indicated. 2. Osteoarthritic changes of joint spaces. Disclaimer: A subtle bone abnormality or fracture may not be readily apparent on X-rays, thus clinical correlation and further imaging including follow-up CT, MRI, or follow-up X-rays are advised as needed. Electronically signed by Randolph Banks 10-09-2024 03:[address] 10/09/24 01:45 EXAM: CT cervical spine wo con CLINICAL HISTORY: Fall, injury to the superior portion of the head, r/o neck trauma. TECHNIQUE: A CT scan of the cervical spine was performed without the administration of intravenous contrast. Contiguous axial images were obtained from the skull base to the upper thoracic spine. Coronal and sagittal reformatted images were also reviewed. One of the following dose-reduction techniques was utilized for this exam. Automated exposure control, adjustment of the mA and/or kV according to patient size, and use of iterative reconstruction. DLP: 1148.22 mGy-cm, CTDI: 64.1 mGy. COMPARISON: No previous studies are available for comparison. FINDINGS: Vertebrae: Straightening of the cervical spine. Atlantoaxial osteoarthritis. Multilevel marginal osteophytes. The vertebral bodies are normal in height and alignment. No evidence of acute fracture or dislocation. No signs of lytic or sclerotic lesions. Normal configuration of the posterior elements. Intervertebral Discs and Neural Foramina: Reduced intervertebral disc spaces with degenerative changes mainly through C4-C7 levels. Multilevel disc osteophyte complexes cause spinal canal stenosis and bilateral neural foraminal narrowing, mainly through C4-C7. Facet Joints: Multilevel facet joint neuropathy. Prevertebral Soft Tissues: The prevertebral soft tissues are normal in thickness, without evidence of mass or abnormal fluid collection. Additional Findings: No other significant findings are noted in the visualized soft tissue structures or bony elements. IMPRESSION: 1. No evidence of acute bony fracture. 2. Straightening of the cervical spine, likely due to muscle spasm. 3. Cervical spondylotic changes with multilevel disc osteophyte complexes cause variable degrees of neural compromise as detailed above. Recommend MRI of cervical spine for better evaluation clinically. Electronically signed by Randolph Banks 10-09-2024 03:26 AM Chest X-Ray 10/09/24 01:45 EXAM: XR chest 1V portable CLINICAL HISTORY: FALL RT ANKLE PAIN JMF TECHNIQUE: An X-ray image of the chest is obtained in AP projection. COMPARISON: No prior studies are available for comparison. FINDINGS: Pulmonary Parenchyma: Prominent hilar and bronchovasular markings suggesting congestion. Patchy right lower zone infiltrate. Which could be infectious/inflammatory. Clinical correlation is advised. No evidence of pleural effusion or pleural thickening. Heart and Mediastinum: Heart size and shape are normal. No mediastinal widening or masses. No hilar or mediastinal lymphadenopathy. Bony Thorax: Bony thorax appears intact without fractures or deformities. Soft Tissues: Soft tissues overlying the chest wall are unremarkable. IMPRESSION: 1. Prominent hilar and bronchovascular markings suggesting congestion. 2. Patchy right lower zone infiltrate. Which could be infectious/inflammatory. Clinical correlation is advised. 3. No pleural effusion. Electronically signed by Randolph Banks 10-09-2024 03:[address] 10/09/24 01:45 EXAM: CT head/brain wo con CLINICAL HISTORY: fall, injury to superior portion of head, r/o trauma TECHNIQUE: Axial non-contrast CT scan of the brain was performed from the skull base to the high parietal region. One of the following dose reduction techniques were utilized for this exam: Automated exposure control, adjustment of the mA and/or kV according to patient size, use of iterative reconstruction. CTDI: 64.3 mGy , DLP: 1148.22 mGy-cm COMPARISON: None. FINDINGS: No evidence of acute infarct, hemorrhage, or mass effect. Brain Parenchyma: Multiple subcortical and periventricular white matter hypodensities likely represent chronic microvascular ischemic changes. Normal attenuation of the cerebral hemispheres, cerebellum, and brainstem. No abnormal areas of hyperattenuation. Ventricular System: A capacious ventricular system, denoting atrophic changes. No evidence of hydrocephalus. Subarachnoid Spaces: Capacious CSF spaces denote atrophic changes. No evidence of subarachnoid hemorrhage or extra-axial fluid collections. Cerebellum and Brainstem: Normal size and attenuation. No masses, lesions, or areas of abnormal attenuation. Orbits: Normal appearance of the globes, optic nerves, and extraocular muscles. No evidence of orbital masses or abnormal attenuation. Sinuses: Clear paranasal sinuses. No evidence of sinusitis or mucosal thickening. Mastoid Air Cells: Clear mastoid air cells. No evidence of mastoiditis. Skull and Meninges: Normal skull morphology. IMPRESSION: 1. No evidence of acute skull fracture or acute intracranial hemorrhage. 2. Chronic microvascular ischemic changes. 3. Senile brain atrophy changes. Electronically signed by Randolph Banks 10-09-2024 03:25 AM Tibia/Fibula X-Ray 10/09/24 01:45 EXAM: XR tibia fibula RT 2V CLINICAL HISTORY: FALL. RIGHT ANKLE PAIN. TECHNIQUE: X-rays of the right tibia and fibula were obtained in 2 views: AP (Anteroposterior) and lateral projections. COMPARISON: None. FINDINGS: Bone: Oblique right distal fibula fracture, above the syndesmosis. Not reaching the articular surface. No displacement of the distal fragment. No joint space widening. Soft Tissue: Soft tissue swelling was seen along the lateral malleolus. IMPRESSION: 1. Oblique right distal fibula fracture, above the syndesmosis. Soft tissue swelling was seen along the lateral malleolus. Clinical correlation and MRI ankle is advised if indicated. 2. Osteoarthritic changes of the scanned part of the knee joint. Disclaimer: A subtle bone abnormality or fracture may not be readily apparent on X-rays, thus clinical correlation and further imaging including follow-up CT, MRI, or follow-up X-rays are advised as needed. Electronically signed by Randolph Banks 10-09-2024 03:22 AM (1) Closed fibular fracture Encounter type: initial encounter Fibula location: distal Fracture morphology: other fracture Laterality: right Qualified Code(s): S82.831A - Other fracture of upper and lower end of right fibula, initial encounter for closed fracture
--- NOTE | 2024-10-09 17:44 | XRay Report ---
Study: Right ankle 3 views History: Status post casting Comparison: None Findings/ Impression: Overlying casting material limits evaluation of fine bony detail. There may be a thin vertical fracture line through the tip of the fibula on the frontal view. There is prominent soft tissue swelling about the ankle. The medial and posterior malleolus appear grossly intact. The talar dome appears intact. There are calcaneal enthesophytes. Talonavicular hypertrophic degenerative change seen dorsally. Electronically signed by Laron Frankel 10-09-2024 5:43 PM
[2024-10-09] MEDS: FLUoxetine HCL 20 MG CAP PO SCH (19:42)
[2024-10-10] MEDS: LEVOTHYROXINE SODIUM 125 MCG TABLET PO SCH (04:51)
[2024-10-10 07:42] LABS: Hematocrit (blood only) 38.8 % (37.0-47.0); Hemoglobin 12.5 g/dl (12.0-16.0); Mean Corpuscular Hemoglobin 27.6 pg (25.0-34.0); Mean Corpuscular Hgb Conc 32.2 g/dL (32.0-36.0); Mean Corpuscular Volume 85.7 fL (80.0-100.0); Platelet Count 376 K/uL (130-400); RDW Coefficient of Variation 15.9 % (11.5-14.5); RDW Standard Deviation 49.2 fL (36.4-46.3); Red Blood Count 4.53 M/uL (4.20-5.40); White Blood Count 11.15 K/ul (4.8-10.8)
[2024-10-10 07:57] LABS: BUN Creatinine Ratio 18.4 (10-20); Calcium 9.2 mg/dl (8.6-10.3); Creatinine Clr Calc Pharmacy 75.7 ml/min; Magnesium 1.9 mg/dl (1.7-2.4); Potassium 3.4 mmol/L (3.5-5.1)
[2024-10-10] MEDS: SENNA 8.6 MG TAB PO SCH (08:07)
[2024-10-10] MEDS: SIMVASTATIN 10 MG TAB PO SCH (08:08)
[2024-10-10] MEDS: LANTUS PER UNIT CHARGE SC SCH (08:13)
[2024-10-10 08:54] LABS: Estimated Average Glucose 123 mg/dl; Hemoglobin A1C 5.9 % (4.5-5.6)
--- NOTE | 2024-10-10 09:27 | Orthopedic Progress Note ---
Date of Service October 10, 2024 Assessment & Plan (1) Closed fibular fracture: Plan: Pt is doing well and can continue with pain control, elevation and icing Leave plaster cast in place NWB x 6 weeks - will need walker/knee scooter to get around PT/OT to help with NWB with walker Recommend ASA 81mg BID x 6 weeks, pt's mother had history of blood clots and with her NWB status she will need DVT phx FUP 2 weeks with [facility] in our office, x rays in plaster cast Will sign off, stable from an ortho standpoint for discharge, please contact with any questions or concerns Admission and Anticipated Discharge Date Admission Date: October 09, 2024 Subjective Pt seen and examined bedside. Reports she is doing well. No major pain. No n/t. Cast is comfortable. No major questions or concerns. Physical Exam Physical Exam: RLE: Plaster cast in place, fitting appropriately. She is able to freely bend her knee and wiggle all of her toes. NVID to light touch, skin warm and pink, cap refill less than 2 seconds. Results & Data Vital Signs (Past 12 Hours) Vital Signs Temp Pulse Resp BP Pulse Ox O2 Del Method 10/10/24 06:53 36.8 C 85 18 177/79 H 95 Room Air 10/09/24 23:26 36.9 C 84 20 110/70 92 Room Air (1) Closed fibular fracture Encounter type: initial encounter Fibula location: distal Fracture morphology: other fracture Laterality: right Qualified Code(s): S82.831A - Other fracture of upper and lower end of right fibula, initial encounter for closed fracture
--- NOTE | 2024-10-10 12:13 | Hospitalist Progress Note ---
Date of Service October 10, 2024 Assessment & Plan (1) Closed fibular fracture: Plan Right distal fibular fracture Secondary to fall Ambulatory dysfunction --Right Leg X ray:Oblique right distal fibula fracture, above the syndesmosis. Soft tissue swelling was seen along the lateral malleolus. Clinical correlation and MRI ankle is advised if indicated. Osteoarthritic changes of the scanned part of the knee joint. --Neck CT:No evidence of acute bony fracture. Straightening of the cervical spine, likely due to muscle spasm. Cervical spondylotic changes with multilevel disc osteophyte complexes cause variable degrees of neural compromise as detail ed above. Recommend MRI of cervical spine for better evaluation clinically. --Head CT:No evidence of acute skull fracture or acute intracranial hemorrhage. Chronic microvascular ischemic changes. Senile brain atrophy changes. --Ankle X ray:Oblique right distal fibula fracture, above the syndesmosis. Soft tissue swelling seen along the lateral malleolus. Clinical correlation and MRI ankle is advised if indicated. Osteoarthritic changes of joint spaces. --Fall precautions PT/OT eval Consulted Orthopedics- placed cast on 10/10/24 Pain Control Bowel regimen to prevent constipation Leukocytosis Likely reactive Abnormal chest x-ray:-Prominent hilar and bronchovascular markings suggesting congestion. Patchy right lower zone infiltrate. Which could be infectiou s/inflammatory. Clinical correlation is advised. Normal procalcitonin Patient denies any respiratory symptoms Urinalysis unremarkable Improving DM Type I: HbA1c 5.9 ISS, basal Insulin, Accu checks, Diabetic diet Pharmacy Glycemic control consult Pharmacy to manage Insulin Hypothyroidism Continue levothyroxine Hypertension Continue lisinopril Hyperlipidemia Continue simvastatin Depression Continue fluoxetine Dementia Reorient frequently to minimize delirium Morbid obesity BMI 49 Diet: carbs DVT Px:Heparin SQ CODE STATUS: Full code Dispo: PT/OT recommending acute rehab Admission and Anticipated Discharge Date Admission Date: October 09, 2024 Subjective pt was seen laying in bed. Noted pain was controlled. Denied other acute concerns Review of Systems Review of Systems: All systems reviewed & are unremarkable except as noted in Subjective Physical Exam Physical Exam: General: Alert, oriented. No acute distress Psych: Appropriate mood and affect Neuro: difficulty with movements, L leg propped HEENT: NC/AT CV: RRR Resp: no increased effort of breathing Abdomen: Soft, nontender Extremities:L leg in cast, propped Results & Data Results & Data Vital Signs (Past 12 Hours) Vital Signs Temp Pulse Resp BP Pulse Ox O2 Del Method 10/10/24 06:53 36.8 C 85 18 177/79 H 95 Room Air Diagnostic Findings Ankle X-Ray 10/09/24 01:45 EXAM: XR ankle RT min 3V routine CLINICAL HISTORY: FALL RT ANKLE PAIN. TECHNIQUE: X-ray images of the right ankle were obtained in anteroposterior (AP), and lateral projections. COMPARISON: No prior studies are available for comparison. FINDINGS: Bone Structure: Oblique right distal fibula fracture, above the syndesmosis. Not reaching the articular surface. No displacement of the distal fragment. No joint space widening. Generalized reduced bone density. Joint Spaces: Osteoarthritic changes are seen as marginal osteophytes and subchondral erosion. No evidence of joint effusion or subluxation. Soft Tissues: Soft tissue swelling was seen along the lateral malleolus. Additional Findings: No signs of osteoarthritis, bone spurs, lytic or sclerotic lesions. IMPRESSION: 1. Oblique right distal fibula fracture, above the syndesmosis. Soft tissue swelling seen along the lateral malleolus. Clinical correlation and MRI ankle is advised if indicated. 2. Osteoarthritic changes of joint spaces. Disclaimer: A subtle bone abnormality or fracture may not be readily apparent on X-rays, thus clinical correlation and further imaging including follow-up CT, MRI, or follow-up X-rays are advised as needed. Electronically signed by Randolph Banks 10-09-2024 03:[address] 10/09/24 01:45 EXAM: CT cervical spine wo con CLINICAL HISTORY: Fall, injury to the superior portion of the head, r/o neck trauma. TECHNIQUE: A CT scan of the cervical spine was performed without the administration of intravenous contrast. Contiguous axial images were obtained from the skull base to the upper thoracic spine. Coronal and sagittal reformatted images were also reviewed. One of the following dose-reduction techniques was utilized for this exam. Automated exposure control, adjustment of the mA and/or kV according to patient size, and use of iterative reconstruction. DLP: 1148.22 mGy-cm, CTDI: 64.1 mGy. COMPARISON: No previous studies are available for comparison. FINDINGS: Vertebrae: Straightening of the cervical spine. Atlantoaxial osteoarthritis. Multilevel marginal osteophytes. The vertebral bodies are normal in height and alignment. No evidence of acute fracture or dislocation. No signs of lytic or sclerotic lesions. Normal configuration of the posterior elements. Intervertebral Discs and Neural Foramina: Reduced intervertebral disc spaces with degenerative changes mainly through C4-C7 levels. Multilevel disc osteophyte complexes cause spinal canal stenosis and bilateral neural foraminal narrowing, mainly through C4-C7. Facet Joints: Multilevel facet joint neuropathy. Prevertebral Soft Tissues: The prevertebral soft tissues are normal in thickness, without evidence of mass or abnormal fluid collection. Additional Findings: No other significant findings are noted in the visualized soft tissue structures or bony elements. IMPRESSION: 1. No evidence of acute bony fracture. 2. Straightening of the cervical spine, likely due to muscle spasm. 3. Cervical spondylotic changes with multilevel disc osteophyte complexes cause variable degrees of neural compromise as detailed above. Recommend MRI of cervical spine for better evaluation clinically. Electronically signed by Randolph Banks 10-09-2024 03:26 AM Chest X-Ray 10/09/24 01:45 EXAM: XR chest 1V portable CLINICAL HISTORY: FALL RT ANKLE PAIN JMF TECHNIQUE: An X-ray image of the chest is obtained in AP projection. COMPARISON: No prior studies are available for comparison. FINDINGS: Pulmonary Parenchyma: Prominent hilar and bronchovasular markings suggesting congestion. Patchy right lower zone infiltrate. Which could be infectious/inflammatory. Clinical correlation is advised. No evidence of pleural effusion or pleural thickening. Heart and Mediastinum: Heart size and shape are normal. No mediastinal widening or masses. No hilar or mediastinal lymphadenopathy. Bony Thorax: Bony thorax appears intact without fractures or deformities. Soft Tissues: Soft tissues overlying the chest wall are unremarkable. IMPRESSION: 1. Prominent hilar and bronchovascular markings suggesting congestion. 2. Patchy right lower zone infiltrate. Which could be infectious/inflammatory. Clinical correlation is advised. 3. No pleural effusion. Electronically signed by Randolph Banks 10-09-2024 03:[address] 10/09/24 01:45 EXAM: CT head/brain wo con CLINICAL HISTORY: fall, injury to superior portion of head, r/o trauma TECHNIQUE: Axial non-contrast CT scan of the brain was performed from the skull base to the high parietal region. One of the following dose reduction techniques were utilized for this exam: Automated exposure control, adjustment of the mA and/or kV according to patient size, use of iterative reconstruction. CTDI: 64.3 mGy , DLP: 1148.22 mGy-cm COMPARISON: None. FINDINGS: No evidence of acute infarct, hemorrhage, or mass effect. Brain Parenchyma: Multiple subcortical and periventricular white matter hypodensities likely represent chronic microvascular ischemic changes. Normal attenuation of the cerebral hemispheres, cerebellum, and brainstem. No abnormal areas of hyperattenuation. Ventricular System: A capacious ventricular system, denoting atrophic changes. No evidence of hydrocephalus. Subarachnoid Spaces: Capacious CSF spaces denote atrophic changes. No evidence of subarachnoid hemorrhage or extra-axial fluid collections. Cerebellum and Brainstem: Normal size and attenuation. No masses, lesions, or areas of abnormal attenuation. Orbits: Normal appearance of the globes, optic nerves, and extraocular muscles. No evidence of orbital masses or abnormal attenuation. Sinuses: Clear paranasal sinuses. No evidence of sinusitis or mucosal thickening. Mastoid Air Cells: Clear mastoid air cells. No evidence of mastoiditis. Skull and Meninges: Normal skull morphology. IMPRESSION: 1. No evidence of acute skull fracture or acute intracranial hemorrhage. 2. Chronic microvascular ischemic changes. 3. Senile brain atrophy changes. Electronically signed by Randolph Banks 10-09-2024 03:25 AM Tibia/Fibula X-Ray 10/09/24 01:45 EXAM: XR tibia fibula RT 2V CLINICAL HISTORY: FALL. RIGHT ANKLE PAIN. TECHNIQUE: X-rays of the right tibia and fibula were obtained in 2 views: AP (Anteroposterior) and lateral projections. COMPARISON: None. FINDINGS: Bone: Oblique right distal fibula fracture, above the syndesmosis. Not reaching the articular surface. No displacement of the distal fragment. No joint space widening. Soft Tissue: Soft tissue swelling was seen along the lateral malleolus. IMPRESSION: 1. Oblique right distal fibula fracture, above the syndesmosis. Soft tissue swelling was seen along the lateral malleolus. Clinical correlation and MRI ankle is advised if indicated. 2. Osteoarthritic changes of the scanned part of the knee joint. Disclaimer: A subtle bone abnormality or fracture may not be readily apparent on X-rays, thus clinical correlation and further imaging including follow-up CT, MRI, or follow-up X-rays are advised as needed. Electronically signed by Randolph Banks 10-09-2024 03:22 AM Ankle X-Ray 10/09/24 15:26 Study: Right ankle 3 views History: Status post casting Comparison: None Findings/ Impression: Overlying casting material limits evaluation of fine bony detail. There may be a thin vertical fracture line through the tip of the fibula on the frontal view. There is prominent soft tissue swelling about the ankle. The medial and posterior malleolus appear grossly intact. The talar dome appears intact. There are calcaneal enthesophytes. Talonavicular hypertrophic degenerative change seen dorsally. Electronically signed by Laron Frankel 10-09-2024 5:43 PM (1) Closed fibular fracture Encounter type: initial encounter Fibula location: distal Fracture morph ology: other fracture Laterality: right Qualified Code(s): S82.831A - Other fracture of upper and lower end of right fibula, initial encounter for closed fracture
--- NOTE | 2024-10-10 14:10 | Pharmacy Report ---
Pharmacy Glycemic Short Note 2 - Date of Service October 10, 2024 - Glycemic Short BSG Results (Last 24 hours): 10/09/24 10/09/24 10/10/24 16:44 20:29 07:10 Glucose 95 POC Glucose 81 145 H 10/10/24 10/10/24 07:33 11:55 Glucose POC Glucose 95 118 H OUTPATIENT ANTIDIABETIC REGIMEN: * Toujeo 94 units SC qAM * Novolog SSI (~75 units/day) HbA1c: 6.1% ( 08/15/24) ASSESSMENT: 10/10: * BSGs 78-528-88-118mg/dL the last 24h. Received 82 units of basal (home Toujeo) and 38 units of bolus insulin yesterday. * Tolerating diet, other stressors stable. * Given fasting BSG 95mg/dl today, will decrease Lantus to ~ 75% of usual basal with plan to titrate accordingly. Novolog loosened last evening to 25/8. 10/09: * LN is a 69 year old female admitted with right distal fibular fracture secondary to a fall in the bathroom at home * Patient has long-standing history of T1DM - follows with [facility] * Per outpatient endocrine/diabetes notes, it appears is quite involved in diabetes care and will titrate insulin as needed * Patient's blood glucose has been very well-controlled recently (per notes and most recent HbA1c) * Called RN upon admission in order to clarify home doses and confirm last doses of insulin * Patient's reports giving patient 82 units of Toujeo and 25 units of Novolog this morning in the ED. He is aware not to administer any more insulin while patient is admitted. * Anticipating significantly lower insulin requirements while inpatient given very well-controlled HbA1c, prior inpatient glycemic data (albeit from 2021), and changes in diet * Diet ordered at this time. Orthopedic surgery consulted. PLAN FOR INPATIENT GLYCEMIC CONTROL: * Basal insulin * Lantus 70 units SQ daily * Bolus insulin * NovoLog per scale ACHS or Q6hrs while NPO * Goal Range: Low 120 mg/dL - High 160 mg/dL * Correction Factor: 25 mg/dL/unit * Nutritional / Prandial insulin per carb ratio of 1 unit per 8 grams CHO consumed
[2024-10-11 07:19] LABS: Basophils % (auto) 0.7 %; Eosinophils # (auto) 0.39 K/uL (0.00-0.50); Eosinophils % (auto) 2.9 %; Hematocrit (blood only) 39.3 % (37.0-47.0); Hemoglobin 12.8 g/dl (12.0-16.0); Immature Granulocytes # (auto) 0.07 K/uL (0.01-0.20); Immature Granulocytes % (auto) 0.5 %; Lymphocytes # (auto) 4.12 K/uL (1.20-3.40); Lymphocytes % (auto) 30.6 %; Mean Corpuscular Hemoglobin 27.5 pg (25.0-34.0); Mean Corpuscular Hgb Conc 32.6 g/dL (32.0-36.0); Mean Corpuscular Volume 84.5 fL (80.0-100.0); Mean Platelet Volume 9.8 fL (9.4-12.4); Monocytes # (auto) 1.33 K/uL (0.11-0.59); Monocytes % (auto) 9.9 %; Neutrophils # (auto) 7.44 K/uL (1.40-6.50); Neutrophils % (auto) 55.4 %; Platelet Count 415 K/uL (130-400); RDW Coefficient of Variation 15.8 % (11.5-14.5); RDW Standard Deviation 47.8 fL (36.4-46.3); Red Blood Count 4.65 M/uL (4.20-5.40); White Blood Count 13.45 K/ul (4.8-10.8)
[2024-10-11 07:40] LABS: BUN Creatinine Ratio 21.7 (10-20); Calcium 9.4 mg/dl (8.6-10.3); Creatinine Clr Calc Pharmacy 79.4 ml/min; Potassium 3.3 mmol/L (3.5-5.1)
[2024-10-11] MEDS: CARBOHYDRATES FOR HYPOGLYCEMIA PO PRN (07:59)
[2024-10-11] MEDS ORDERED: LANTUS PER UNIT CHARGE SC SCH (09:00)
[2024-10-11] MEDS: LANTUS PER UNIT CHARGE SC SCH (09:04)
[2024-10-11] MEDS: POTASSIUM CHLORIDE CRTAB 20 MEQ TABCR PO STA (10:38)
--- NOTE | 2024-10-11 11:48 | Pharmacy Report ---
Pharmacy Glycemic Short Note 2 - Date of Service October 11, 2024 - Glycemic Short BSG Results (Last 24 hours): 10/10/24 10/10/24 10/10/24 11:55 16:39 20:30 Glucose POC Glucose 118 H 95 124 H 10/11/24 10/11/24 10/11/24 06:38 07:49 07:51 Glucose 67 L POC Glucose 67 L* 68 L* 10/11/24 10/11/24 08:17 11:36 Glucose POC Glucose 92 177 H OUTPATIENT ANTIDIABETIC REGIMEN: * Toujeo 94 units SC qAM * Novolog SSI (~75 units/day) HbA1c: 5.9% (10/10/24) ASSESSMENT: 10/11: * BSGs remain on low end of normal: 95-124 and low at 67mg/dL this AM. Received 70 units of basal and 11 units of bolus insulin yesterday. * Tolerating diet/stressors stable. * Decrease basal ~ 50% today given low fasting BSG. Likely significantly decreased basal requirement while hospitalized. Novolog carb ratio loosened slightly. 10/10: * BSGs 66-437-94-118mg/dL the last 24h. Received 82 units of basal (home Toujeo) and 38 units of bolus insulin yesterday. * Tolerating diet, other stressors stable. * Given fasting BSG 95mg/dl today, will decrease Lantus to ~ 75% of usual basal with plan to titrate accordingly. Novolog loosened last evening to 25/8. 10/09: * LN is a 69 year old female admitted with right distal fibular fracture secondary to a fall in the bathroom at home * Patient has long-standing history of T1DM - follows with [facility] End[facility]ology * Per outpatient endocrine/diabetes notes, it appears is quite involved in diabetes care and will titrate insulin as needed * Patient's blood glucose has been very well-controlled recently (per notes and most recent HbA1c) * Called RN upon admission in order to clarify home doses and confirm last doses of insulin * Patient's reports giving patient 82 units of Toujeo and 25 units of Novolog this morning in the ED. He is aware not to administer any more insulin while patient is admitted. * Anticipating significantly lower insulin requirements while inpatient given very well-controlled HbA1c, prior inpatient glycemic data (albeit from 2022), and changes in diet * Diet ordered at this time. Orthopedic surgery consulted. PLAN FOR INPATIENT GLYCEMIC CONTROL: * Basal insulin * Lantus 40 units SQ daily * Bolus insulin * NovoLog per scale ACHS or Q6hrs while NPO * Goal Range: Low 120 mg/dL - High 160 mg/dL * Correction Factor: 25 mg/dL/unit * Nutritional / Prandial insulin per carb ratio of 1 unit per 9 grams CHO consumed
--- NOTE | 2024-10-11 12:22 | Hospitalist Progress Note ---
Date of Service October 11, 2024 Assessment & Plan (1) Closed fibular fracture: Plan Right distal fibular fracture Secondary to fall Ambulatory dysfunction --Right Leg X ray:Oblique right distal fibula fracture, above the syndesmosis. Soft tissue swelling was seen along the lateral malleolus. Clinical correlation and MRI ankle is advised if indicated. Osteoarthritic changes of the scanned part of the knee joint. --Neck CT:No evidence of acute bony fracture. Straightening of the cervical spine, likely due to muscle spasm. Cervical spondylotic changes with multilevel disc osteophyte complexes cause variable degrees of neural compromise as detail ed above. Recommend MRI of cervical spine for better evaluation clinically. --Head CT:No evidence of acute skull fracture or acute intracranial hemorrhage. Chronic microvascular ischemic changes. Senile brain atrophy changes. --Ankle X ray:Oblique right distal fibula fracture, above the syndesmosis. Soft tissue swelling seen along the lateral malleolus. Clinical correlation and MRI ankle is advised if indicated. Osteoarthritic changes of joint spaces. --Fall precautions PT/OT eval Consulted Orthopedics- placed cast on 10/10/24 Pain Control Bowel regimen to prevent constipation Currently awaiting acute rehab placement Leukocytosis Likely reactive Abnormal chest x-ray:-Prominent hilar and bronchovascular markings suggesting congestion. Patchy right lower zone infiltrate. Which could be infectious/inflammatory. Clinical correlation is advised. Normal procalcitonin Patient denies any respiratory symptoms Urinalysis unremarkable Improving DM Type I: HbA1c 5.9 ISS, basal Insulin, Accu checks, Diabetic diet Pharmacy Glycemic control consult Pharmacy to manage Insulin Hypothyroidism Continue levothyroxine Hypertension Continue lisinopril Hyperlipidemia Continue simvastatin Depression Continue fluoxetine Dementia Reorient frequently to minimize delirium Morbid obesity BMI 49 Diet: carbs DVT Px:Heparin SQ CODE STATUS: Full code Dispo: PT/OT recommending acute rehab Admission and Anticipated Discharge Date Admission Date: October 09, 2024 Subjective pt was seen laying in bed. Noted pain was controlled. Denied other acute concerns Review of Systems Review of Systems: All systems reviewed & are unremarkable except as noted in Subjective Physical Exam Physical Exam: General: Alert, oriented. No acute distress Psych: Appropriate mood and affect Neuro: difficulty with movements, L leg propped HEENT: NC/AT CV: RRR Resp: no increased effort of breathing Abdomen: Soft, nontender Extremities:L leg in cast, propped Results & Data Results & Data Vital Signs (Past 12 Hours) Vital Signs Temp Pulse Resp BP Pulse Ox O2 Del Method 10/11/24 11:17 36.6 C 84 18 112/69 96 Room Air 10/11/24 08:00 Room Air 10/11/24 07:20 36.6 C 84 20 119/68 96 Room Air (1) Closed fibular fracture Encounter type: initial encounter Fibula location: distal Fracture morphology: other fracture Laterality: right Qualified Code(s): S82.831A - Other fracture of upper and lower end of right fibula, initial encounter for closed fracture
[2024-10-12 07:14] LABS: Basophils # (auto) 0.13 K/uL (0.00-0.20); Basophils % (auto) 1.1 %; Eosinophils # (auto) 0.42 K/uL (0.00-0.50); Eosinophils % (auto) 3.4 %; Hematocrit (blood only) 38.2 % (37.0-47.0); Hemoglobin 12.5 g/dl (12.0-16.0); Immature Granulocytes # (auto) 0.07 K/uL (0.01-0.20); Immature Granulocytes % (auto) 0.6 %; Lymphocytes # (auto) 4.07 K/uL (1.20-3.40); Lymphocytes % (auto) 33.2 %; Mean Corpuscular Hemoglobin 27.9 pg (25.0-34.0); Mean Corpuscular Hgb Conc 32.7 g/dL (32.0-36.0); Mean Corpuscular Volume 85.3 fL (80.0-100.0); Mean Platelet Volume 10.1 fL (9.4-12.4); Monocytes # (auto) 1.34 K/uL (0.11-0.59); Monocytes % (auto) 10.9 %; Neutrophils # (auto) 6.22 K/uL (1.40-6.50); Neutrophils % (auto) 50.8 %; Platelet Count 391 K/uL (130-400); RDW Coefficient of Variation 15.5 % (11.5-14.5); RDW Standard Deviation 48.3 fL (36.4-46.3); Red Blood Count 4.48 M/uL (4.20-5.40); White Blood Count 12.25 K/ul (4.8-10.8)
[2024-10-12 07:37] LABS: Calcium 9.4 mg/dl (8.6-10.3); Potassium 3.9 mmol/L (3.5-5.1)
[2024-10-12 07:42] LABS: BUN Creatinine Ratio 24.4 (10-20); Creatinine Clr Calc Pharmacy 76.6 ml/min
[2024-10-12] MEDS: LANTUS PER UNIT CHARGE SC SCH (08:23)
[2024-10-12] MEDS ORDERED: LANTUS PER UNIT CHARGE SC SCH (09:00)
--- NOTE | 2024-10-12 15:14 | Hospitalist Progress Note ---
Date of Service October 12, 2024 Assessment & Plan (1) Closed fibular fracture: Plan #Right distal fibular fracture -Secondary to fall --Right Leg X ray:Oblique right distal fibula fracture, above the syndesmosis. Soft tissue swelling was seen along the lateral malleolus. Clinical correlation and MRI ankle is advised if indicated. Osteoarthritic changes of the scanned part of the knee joint. --Neck CT:No evidence of acute bony fracture. Straightening of the cervical spine, likely due to muscle spasm. Cervical spondylotic changes with multilevel disc osteophyte complexes cause variable degrees of neural compromise as detailed above. Recommend MRI of cervical spine for better evaluation clinically. --Head CT:No evidence of acute skull fracture or acute intracranial hemorrhage. Chronic microvascular ischemic changes. Senile brain atrophy changes. --Ankle X ray:Oblique right distal fibula fracture, above the syndesmosis. Soft tissue swelling seen along the lateral malleolus. Clinical correlation and MRI ankle is advised if indicated. Osteoarthritic changes of joint spaces. --Fall precautions Plan: -PT/OT eval, awaiting placement -Consulted Orthopedics- placed cast on 10/10/24 -Pain Control -Bowel regimen to prevent constipation #Chronic Leukocytosis -Abnormal chest x-ray:-Prominent hilar and bronchovascular markings suggesting congestion. Patchy right lower zone infiltrate. Which could be infectio us/inflammatory. Clinical correlation is advised. -Normal procalcitonin -Patient denies any respiratory symptoms Plan: -f/u outpatient #DM Type I: -HbA1c 5.9 -ISS, basal Insulin, Accu checks, Diabetic diet #Hypothyroidism -Continue levothyroxine #Hypertension -Continue lisinopril #Hyperlipidemia -Continue simvastatin #Depression -Continue fluoxetine #Dementia Reorient frequently to minimize delirium #Morbid obesity BMI 49 Feeding/fluids: carb counting Analgesia: tylenol/oxycodone Sedation: na Thromboprophylaxis: heparin Head up position: na Ulcer prophylaxis: na Glycemic control: DM 1 insulin protocol Spontaneous breathing trial: na Bowel care: senna Indwelling catheter removal: na Deescalation of antibiotics: na I spent a total of 40 minutes in direct patient care, including [id number] time with the patient and/or family, reviewing medical records, ordering and reviewing diagnostic tests, and coordinating care with other healthcare providers. This time includes: history taking, physical examination, medical decision making, counseling, ECG interpretation, imaging interpretation, lab interpretation, orders, and education, excluding time spent in the performance of separately billed services. Admission and Anticipated Discharge Date Admission Date: October 09, 2024 Subjective Patient seen and examined at bedside. Patient is doing well today. She states she feels ready for rehab. Pain is adequately controlled at this time. Review of Systems Review of Systems: CONSTITUTIONAL: Patient denies fevers, chills, sweats and weight changes. EYES: Patient denies any visual symptoms. EARS, NOSE, AND THROAT: No difficulties with hearing. No symptoms of rhinitis or sore throat. CARDIOVASCULAR: Patient denies chest pains, palpitations, orthopnea and paroxysmal nocturnal dyspnea. RESPIRATORY: No dyspnea on exertion, no wheezing or cough. GI: No nausea, vomiting, diarrhea, constipation, abdominal pain, hematochezia or melena. : No urinary hesitancy or dribbling. No nocturia or urinary frequency. No abnormal urethral discharge. MUSCULOSKELETAL: No myalgias or arthralgias. NEUROLOGIC: No chronic headaches, no seizures. Patient denies numbness, tingling or weakness. PSYCHIATRIC: Patient denies problems with mood disturbance. No problems with anxiety. ENDOCRINE: No excessive urination or excessive thirst. DERMATOLOGIC: Patient denies any rashes or skin changes. Physical Exam Physical Exam: Gen: A&O 3 NAD HEENT: NCAT, EOMI, not icteric. External ears normal. No rhinorrhea. Moist mucous membranes. Neck: Supple, full range of motion, no observable masses, No meningeal sign. Lungs: No Respiratory distress. CV: RRR, no edema. Abdomen: Soft, nondistended, No rebound tenderness. MSK: No joint swelling, no redness. Noted fracture site, minimal tenderness to palpation Skin: No rashes, petechiae, lesions. Normal color per patient. Neuro: Normal Gait, Grossly intact. Psych: Appropriate for situation. Results & Data Results & Data Vital Signs (Past 12 Hours) Vital Signs Temp Pulse Resp BP Pulse Ox O2 Del Method 10/12/24 14:40 36.9 C 92 H 16 171/81 H 93 Room Air 10/12/24 08:00 Room Air 10/12/24 06:57 37.0 C 83 16 172/73 H 92 Room Air Laboratory Results -personally reviewed, patient slightly tachycardic and hypertensive in hospital setting otherwise hemodynamically stable, Mild leukocytosis and mild hyponatremia noted and likely chronic in nature based on chart review Medications Administered Cholestyramine Resin (Cholestyramine Light 4 Gm Pkt) 4 gm PO DAILY@1200 CLAUDIA Stop: 11/08/24 13:59 Last Admin: 10/12/24 12:53 Dose: 4 gm Documented By: Admin: 10/11/24 12:36 Dose: 4 gm Documented By: Admin: 10/10/24 12:16 Dose: 4 gm Documented By: Admin: 10/09/24 13:03 Dose: 4 gm Documented By: DECLAN Fluoxetine HCl (Fluoxetine Hcl 20 Mg Cap) 20 mg PO HS CLAUDIA Stop: 11/08/24 20:59 Last Admin: 10/11/24 21:32 Dose: 20 mg Documented By: Admin: 10/10/24 21:38 Dose: 20 mg Documented By: Admin: 10/09/24 19:42 Dose: 20 mg Documented By: NAYANA Heparin Sodium (Porcine) (Heparin Sod 5,000 Unit/0.5 Ml Vial) 5,000 units SQ Q8 CLAUDIA Stop: 11/08/24 13:59 Last Admin: 10/12/24 14:21 Dose: 5,000 units Documented By: Admin: 10/12/24 05:37 Dose: 5,000 units Documented By: Admin: 10/11/24 21:33 Dose: 5,000 units Documented By: Admin: 10/11/24 15:00 Dose: 5,000 units Documented By: Admin: 10/11/24 05:45 Dose: 5,000 units Documented By: Admin: 10/10/24 21:38 Dose: 5,000 units Documented By: Admin: 10/10/24 15:11 Dose: 5,000 units Documented By: Admin: 10/10/24 04:50 Dose: 5,000 units Documented By: Admin: 10/09/24 21:21 Dose: 5,000 units Documented By: Admin: 10/09/24 13:03 Dose: 5,000 units Documented By: DECLAN Hydrochlorothiazide (Hydrochlorothiazide 25 Mg Tab) 12.5 mg PO DAILY CLAUDIA Stop: 11/08/24 11:29 Last Admin: 10/12/24 08:15 Dose: 12.5 mg Documented By: Admin: 10/11/24 08:58 Dose: 12.5 mg Documented By: Admin: 10/10/24 08:07 Dose: 12.5 mg Documented By: Admin: 10/09/24 11:55 Dose: 12.5 mg Documented By: DECLAN Insulin Aspart (Insulin Aspart Per Unit Charge) 0 units SC ACHS CLAUDIA Stop: 11/08/24 11:29 Last Admin: 10/12/24 12:53 Dose: 7 units Documented By: CHARLES Co-signed By: MITCH Admin: 10/12/24 08:23 Dose: 5 units Documented By: CHARLES Co-signed By: DOC Admin: 10/11/24 21:47 Dose: Not Given Documented By: Admin: 10/11/24 17:17 Dose: 7 units Documented By: JEREMY Co-signed By: SANCHO Admin: 10/11/24 12:13 Dose: 8 units Documented By: JEREMY Co-signed By: ANGELA Admin: 10/11/24 09:04 Dose: 1 units Documented By: JEREMY Co-signed By: CATHI Admin: 10/10/24 21:47 Dose: Not Given Documented By: SURYA Co-signed By: INO Admin: 10/10/24 17:33 Dose: 7 units Documented By: CHIDI Co-signed By: DECLAN Admin: 10/10/24 12:21 Dose: 4 units Documented By: CHIDI Co-signed By: SAM Admin: 10/10/24 08:09 Dose: Not Given Documented By: Admin: 10/09/24 21:22 Dose: Not Given Documented By: Admin: 10/09/24 17:25 Dose: 5 units Documented By: DECLAN Co-signed By: SANCHO Admin: 10/09/24 11:58 Dose: 8 units Documented By: DECLAN Co-signed By: SANCHO Insulin Glargine (Lantus Per Unit Charge) 50 units SC DAILY CLAUDIA Stop: 11/11/24 08:59 Last Admin: 10/12/24 08:23 Dose: 50 units Documented By: CHARLES Co-signed By: DOC Levothyroxine Sodium (Levothyroxine Sodium 125 Mcg Tablet) 125 mcg PO DAILYBB CLAUDIA Stop: 11/09/24 06:29 Last Admin: 10/12/24 05:38 Dose: 125 mcg Documented By: Admin: 10/11/24 05:45 Dose: 125 mcg Documented By: Admin: 10/10/24 04:51 Dose: 125 mcg Documented By: NAYANA Lisinopril (Lisinopril 5 Mg Tab) 5 mg PO DAILY [facility] Stop: 11/08/24 11:29 Last Admin: 10/12/24 08:14 Dose: 5 mg Documented By: Admin: 10/11/24 08:59 Dose: 5 mg Documented By: Admin: 10/10/24 08:08 Dose: 5 mg Documented By: Admin: 10/09/24 11:55 Dose: 5 mg Documented By: DECLAN Miscellaneous (Carbohydrates For Hypoglycemia ) 15 - 30 gm PO UD PRN PRN Reason: Hypoglycemia Protocol Stop: 11/08/24 10:46 Last Admin: 10/11/24 07:59 Dose: 15 gm Documented By: CATHI Oxycodone/Acetaminophen (Oxycodone/Acetaminophen 5mg/325mg Tab) 1 tab PO Q4H PRN PRN Reason: Mild-Mod Pain (Scale 1-6) Stop: 10/23/24 10:46 Last Admin: 10/11/24 21:32 Dose: 1 tab Documented By: Admin: 10/11/24 16:38 Dose: 1 tab Documented By: Admin: 10/10/24 15:22 Dose: 1 tab Documented By: Admin: 10/09/24 19:41 Dose: 1 tab Documented By: Admin: 10/09/24 13:03 Dose: 1 tab Documented By: DECLAN Sennosides (Senna 8.6 Mg Tab) 8.6 mg PO QAM CLAUDIA Stop: 11/09/24 08:59 Last Admin: 10/12/24 08:23 Dose: 8.6 mg Documented By: Admin: 10/11/24 09:04 Dose: 8.6 mg Documented By: Admin: 10/10/24 08:07 Dose: 8.6 mg Documented By: CMV Simvastatin (Simvastatin 10 Mg Tab) 10 mg PO DAILY [facility] Stop: 11/09/24 08:59 Last Admin: 10/12/24 08:15 Dose: 10 mg Documented By: Admin: 10/11/24 08:59 Dose: 10 mg Documented By: Admin: 10/10/24 08:08 Dose: 10 mg Documented By: CMV (1) Closed fibular fracture Encounter type: initial encounter Fibula location: distal Fracture morphology: other fracture Laterality: right Qualified Code(s): S82.831A - Other fracture of upper and lower end of right fibula, initial encounter for closed fracture
[2024-10-13 07:17] VITALS: BP 126/58; PULSE 88; RESP 18; TEMP 98.2; O2SAT 96
[2024-10-13] MEDS: LANTUS PER UNIT CHARGE SC SCH (08:18)
[2024-10-13] MEDS: DOCUSATE SODIUM 100 MG CAP PO PRN (08:18)
[2024-10-13 09:27] LABS: Basophils # (auto) 0.11 K/uL (0.00-0.20); Basophils % (auto) 0.9 %; Eosinophils # (auto) 0.39 K/uL (0.00-0.50); Eosinophils % (auto) 3.1 %; Hematocrit (blood only) 39.4 % (37.0-47.0); Hemoglobin 12.9 g/dl (12.0-16.0); Immature Granulocytes # (auto) 0.11 K/uL (0.01-0.20); Immature Granulocytes % (auto) 0.9 %; Lymphocytes # (auto) 3.83 K/uL (1.20-3.40); Lymphocytes % (auto) 30.8 %; Mean Corpuscular Hemoglobin 27.6 pg (25.0-34.0); Mean Corpuscular Hgb Conc 32.7 g/dL (32.0-36.0); Mean Corpuscular Volume 84.4 fL (80.0-100.0); Mean Platelet Volume 10.3 fL (9.4-12.4); Monocytes # (auto) 1.18 K/uL (0.11-0.59); Monocytes % (auto) 9.5 %; Neutrophils # (auto) 6.83 K/uL (1.40-6.50); Neutrophils % (auto) 54.8 %; Platelet Count 385 K/uL (130-400); RDW Coefficient of Variation 15.5 % (11.5-14.5); RDW Standard Deviation 47.4 fL (36.4-46.3); Red Blood Count 4.67 M/uL (4.20-5.40); White Blood Count 12.45 K/ul (4.8-10.8)
[2024-10-13 09:50] LABS: BUN Creatinine Ratio 25.6 (10-20); Calcium 9.6 mg/dl (8.6-10.3); Creatinine Clr Calc Pharmacy 80.4 ml/min; Potassium 3.9 mmol/L (3.5-5.1)
--- NOTE | 2024-10-13 13:46 | Discharge Summary ---
Discharge Summary Date of Service October 13, 2024 Principal Dx & Hospital Course #1 = Principal Diagnosis (1) Closed fibular fracture: Plan #Right distal fibular fracture -Secondary to fall --Right Leg X ray:Oblique right distal fibula fracture, above the syndesmosis. Soft tissue swelling was seen along the lateral malleolus. Clinical correlation and MRI ankle is advised if indicated. Osteoarthritic changes of the scanned part of the knee joint. --Neck CT:No evidence of acute bony fracture. Straightening of the cervical spine, likely due to muscle spasm. Cervical spondylotic changes with multilevel disc osteophyte complexes cause variable degrees of neural compromise as detailed above. Recommend MRI of cervical spine for better evaluation clinically. --Head CT:No evidence of acute skull fracture or acute intracranial hemorrhage. Chronic microvascular ischemic changes. Senile brain atrophy changes. --Ankle X ray:Oblique right distal fibula fracture, above the syndesmosis. Soft tissue swelling seen along the lateral malleolus. Clinical correlation and MRI ankle is advised if indicated. Osteoarthritic changes of joint spaces. --Fall precautions Plan: -PT/OT eval, awaiting placement -Consulted Orthopedics- placed cast on 10/10/24 -Pain Control -Bowel regimen to prevent constipation #Chronic Leukocytosis -Abnormal chest x-ray:-Prominent hilar and bronchovascular markings suggesting congestion. Patchy right lower zone infiltrate. Which could be infectious/inflammatory. Clinical correlation is advised. -Normal procalcitonin -Patient denies any respiratory symptoms Plan: -f/u outpatient #DM Type I: -HbA1c 5.9 -ISS, basal Insulin, Accu checks, Diabetic diet #Hypothyroidism -Continue levothyroxine #Hypertension -Continue lisinopril #Hyperlipidemia -Continue simvastatin #Depression -Continue fluoxetine #Dementia Reorient frequently to minimize delirium #Morbid obesity BMI 49 Notes For Next Care Provider Patient is a 69-year-old female with history of type 1 diabetes mellitus, depression, dementia, dyslipidemia, hypothyroidism, hypertension, vitamin D deficiency and other medical problems presents with history of right ankle pain after a fall this morning. Ortho was consulted, placed cast on right ankle. PT OT recommending rehab. Patient medically stable for discharge to rehab Medication Changes From Visit -sent with pain medication Admission HPI Per Admitting Provider Patient is a 69-year-old female with history of type 1 diabetes mellitus, depression, dementia, dyslipidemia, hypothyroidism, hypertension, vitamin D deficiency and other medical problems presents with history of right ankle pain after a fall this morning. Patient is a poor historian secondary to memory issues. Most of the history is obtained from ER staff, old records and patient's family at bedside. Patient has been having generalized weakness for the last 2 to 3 days and today while walking to the bathroom patient fell which was unwitnessed. Patient has ambulatory dysfunction at baseline and has intermittent falls as per family. She does not use a cane or walker at baseline. Patient admits to have hit her head and had an a headache earlier today but later resolved. She reports having right ankle pain 9/10 intensity, sharp especially with movement. Patient was seen sitting in the bathroom when her heard her fall. Denies any history of chest pain, dyspnea, dizziness, cough, hemoptysis, fever, chills, loss of consciousness, focal weakness, change in vision, nausea, vomiting, abdominal pain, blood in stools, diarrhea, dysuria, hematuria, recent change in medications . Discharge Exam Gen: A&O 3 NAD HEENT: NCAT, EOMI, not icteric. External ears normal. No rhinorrhea. Moist mucous membranes. Neck: Supple, full range of motion, no observable masses, No meningeal sign. Lungs: No Respiratory distress. CV: RRR, no edema. Abdomen: Soft, nondistended, No rebound tenderness. MSK: No joint swelling, no redness. Noted fracture site, minimal tenderness to palpation Skin: No rashes, petechiae, lesions. Normal color per patient. Neuro: Normal Gait, Grossly intact. Psych: Appropriate for situation. Updated Medication List Medication Instructions Recorded Confirmed Type blood-glucose meter (OneTouch #1 ea 03/20/22 08/15/24 Rx Ultra2 Meter kit) lisinopril 5 mg tablet 5 mg PO QAM 07/18/22 08/15/24 History OneTouch Ultra Test (blood sugar #400 ea 10/17/22 08/15/24 Rx diagnostic) Dexcom G6 Water Commissioner (blood-glucose #1 ea 02/13/23 08/15/24 Rx meter,continuous) Dexcom G6 Sensor (blood-glucose #9 ea 02/13/23 08/15/24 Rx sensor) Dexcom G6 Transmitter #1 ea 02/13/23 08/15/24 Rx (blood-glucose transmitter) fluoxetine 20 mg capsule 20 mg PO BID 05/19/23 08/15/24 History cholecalciferol (vitamin D3) 50 50 mcg PO QAM 06/18/23 08/15/24 History mcg (2,000 unit) tablet folic acid 1 mg tablet 1 mg PO QAM 06/18/23 08/15/24 History magnesium 200 mg tablet 200 mg PO HS 06/18/23 08/15/24 History melatonin 10 mg tablet 10 mg PO HS PRN Sleep 06/18/23 08/15/24 History pen needle, diabetic 32 gauge x 06/19/23 08/15/24 History 32" (BD Cristy 2nd Gen Pen Needle) insulin aspart U-100 100 unit/mL 75 unit (0.75 mL) subcut DAILY #75 04/22/24 08/15/24 Rx (3 mL) subcutaneous pen (Novolog mL FlexPen U-100 Insulin aspart) insulin glargine U-300 conc 300 94 unit (0.3133 mL) subcut QAM #30 09/12/24 Rx unit/mL (3 mL) subcutaneous pen mL (Toujeo Max U-300 SoloStar) cholestyramine (with sugar) 4 gram 4 ea PO TID 10/09/24 10/09/24 History oral powder (Questran) fluoxetine 20 mg capsule 20 mg PO BID 10/09/24 10/09/24 History hydrochlorothiazide 12.5 mg tablet 12.5 mg PO QAM 10/09/24 10/09/24 History insulin aspart U-100 100 unit/mL See Rx Instructions .Route .COMPLEX 10/09/24 10/09/24 History (3 mL) subcutaneous pen (Novolog FlexPen U-100 Insulin aspart) insulin glargine U-300 conc 300 82 unit subcut QAM 10/09/24 10/09/24 History unit/mL (3 mL) subcutaneous pen (Toujeo Max U-300 SoloStar) levothyroxine 125 mcg tablet 125 mcg PO DAILYBB 10/09/24 10/09/24 History lisinopril 5 mg tablet 5 mg PO QAM 10/09/24 10/09/24 History sennosides 8.6 mg tablet (senna) 8.6 mg PO DAILY PRN Constipation 10/09/24 10/09/24 History simvastatin 10 mg tablet 10 mg PO HS 10/09/24 10/09/24 History oxycodone-acetaminophen 5 mg-325 1 tab PO Q6 PRN pain #12 tabs 10/13/24 Rx mg tablet (Percocet) Hospital Stay Data Consultations 10/09/24 08:57 ED Decision to Admit Stat 10/09/24 09:22 Consult Orthopedic Surgery Stat Diagnostic Imagining Performed 10/09/24 01:45 CT cervical spine wo con Stat CT head/brain wo con Stat Pending Results Patient Have Any Pending Studies at Discharge: No Discharge Instructions Given to Patient (Per Discharging Provider) 1. Follow up with orthopaedics in 2 weeks. 2. Work hard at rehab. Total Time Total Time Spent Total Time Spent (In Minutes): I spent a total of 35 minutes in direct patient care, including [id number] time with the patient and/or family, reviewing medical records, ordering and reviewing diagnostic tests, and coordinating care with other healthcare providers. This time includes: history taking, physical examination, medical decision making, counseling, ECG interpretation, imaging interpretation, lab interpretation, orders, and education, excluding time spent in the performance of separately billed services.
[2024-10-13] MEDS ORDERED: LANTUS PER UNIT CHARGE SC SCH (21:00)
== END 2024-10-13 14:16 | DRG 563 ==
LOC: ED 01:30 → 3N 09:19 → SUATTDRO 09:19 → INTOOBSV 09:19 → MERGE 09:19 → 3N 10:16

== ENCOUNTER 2024-11-03 14:40 | Inpatient (IN) ==
[2024-11-03] MEDS: OPTIRAY 320 125ml IV ONE ×2 (15:05→16:46)
--- NOTE | 2024-11-03 15:12 | CT Scan Report ---
CT OF THE HEAD WITHOUT CONTRAST CLINICAL HISTORY: neuro deficit, acute stroke suspected COMPARISON STUDY: Head CT October 09, 2024. TECHNIQUE: Helical axial images of the head were obtained without IV contrast. Automated exposure con trol was utilized for the study. A dose lowering technique was utilized adhering to the principles o f ALARA. FINDINGS: This study is mildly compromised by artifact. No acute intracranial hemorrhage, midline aleshia ft or mass effect is present. The ventricular system is stable. White matter hypodensities are unchan ged and favor small vessel disease. The basal cisterns are patent. No extra-axial collections are pre sent. There are no findings to suggest acute dural sinus thrombosis or acute territorial infarct. No significant calvarial abnormalities are present. Visualized portions of the sinuses and mastoid air c ells are clear. IMPRESSION: No acute intracranial findings. No change in appearance of the brain. Exam mildly compro mised by artifact. ACT 112: Negative or not required by law. Electronically signed by: Arthur Rivera M.D. 11/03/2024 3:10 PM
--- NOTE | 2024-11-03 15:25 | CT Scan Report ---
CT angio head w con CLINICAL HISTORY: neuro deficit, acute stroke suspected. COMPARISON STUDY: None TECHNIQUE: Unenhanced axial CT scan of the brain is performed. Subsequently, following the IV adminis tration of 115 cc of Optiray, CT angiogram of the brain was performed from the skull base to the vert ex. Images are reviewed in the axial, sagittal, and coronal planes. 3-D MIPS images are created and a ssessed. IV contrast was administered without complication. All measurements were obtained according to NASCET criteria. A dose lowering technique was utilized adhering to the principles of ALARA. CT DOSE: 1837.22 mGy.cm FINDINGS: The M1 and A1 segments are symmetrical bilaterally. There is no evidence of occlusive disea se or significant narrowing. The basilar artery is somewhat diminutive and this may be associated wit h pronounced contribution of the posterior cerebral arteries by the posterior communicating arteries bilaterally. There are calcifications in the carotid siphons. IMPRESSION: No occlusive disease or significant intracranial stenosis identified. ACT 112: Negative or not required by law. The above report was generated using voice recognition software. It may contain grammatical, syntax o r spelling errors. Electronically signed by: Asha Hernandez M.D. 11/03/2024 3:22 PM
--- NOTE | 2024-11-03 15:28 | CT Scan Report ---
CT angio neck with con CLINICAL HISTORY: neuro deficit, acute stroke suspected. COMPARISON STUDY: None TECHNIQUE: Following the IV administration of 115 of Optiray, CT angiogram of the neck was performed from the aortic arch to the skull base. Images are reviewed in the axial, sagittal, and coronal plane s. 3-D MIPS images are created and assessed. IV contrast was administered without complication. All m easurements were calculated based on NASCET criteria. A dose lowering technique was utilized adherin g to the principles of ALARA. CT DOSE: 1837.22mGy*cm FINDINGS: There is no evidence of occlusive disease or hemodynamically significant stenosis in the ne ck. There is no evidence of dissection. IMPRESSION: Negative study ACT 112: Negative or not required by law. The above report was generated using voice recognition software. It may contain grammatical, syntax o r spelling errors. Electronically signed by: Asha Hernandez M.D. 11/03/2024 3:27 PM
[2024-11-03 15:42] LABS: Basophils # (auto) 0.09 K/uL (0.00-0.20); Basophils % (auto) 0.8 %; Eosinophils # (auto) 0.17 K/uL (0.00-0.50); Eosinophils % (auto) 1.5 %; Hematocrit (blood only) 38.9 % (37.0-47.0); Hemoglobin 12.9 g/dl (12.0-16.0); Immature Granulocytes # (auto) 0.05 K/uL (0.01-0.20); Immature Granulocytes % (auto) 0.5 %; Lymphocytes # (auto) 2.06 K/uL (1.20-3.40); Lymphocytes % (auto) 18.6 %; Mean Corpuscular Hemoglobin 27.7 pg (25.0-34.0); Mean Corpuscular Hgb Conc 33.2 g/dL (32.0-36.0); Mean Corpuscular Volume 83.5 fL (80.0-100.0); Mean Platelet Volume 9.7 fL (9.4-12.4); Monocytes # (auto) 1.59 K/uL (0.11-0.59); Monocytes % (auto) 14.4 %; Neutrophils % (auto) 64.2 %; Platelet Count 397 K/uL (130-400); RDW Coefficient of Variation 15.8 % (11.5-14.5); RDW Standard Deviation 47.6 fL (36.4-46.3); Red Blood Count 4.66 M/uL (4.20-5.40); White Blood Count 11.06 K/ul (4.8-10.8)
[2024-11-03 15:57] LABS: Appearance Urine Clear (Clear); Bilirubin Urine Negative (Negative); Blood Urine Negative (Negative); Color Urine Yellow; Glucose Urine UA Negative (Negative); Ketones Urine Negative (Negative); Leukocyte Esterase Urine Negative (Negative); Nitrite Urine Negative (Negative); Protein Urine Negative (Negative); Specific Gravity Urine 1.016 (1.000-1.030); Urobilinogen Urine Negative (Negative); pH Urine 7.5 (4.5-7.5)
[2024-11-03 16:01] LABS: Albumin Globulin Ratio 1.3 (0.9-2); Albumin Level 3.9 gm/dl (3.4-5.0); BUN Creatinine Ratio 20.5 (10-20); Bilirubin,Total 0.3 mg/dl (0.2-1.0); Calcium 9.3 mg/dl (8.6-10.3); Creatinine Clr Calc Pharmacy 80.4 ml/min; Potassium 4.1 mmol/L (3.5-5.1); Total Protein 6.9 gm/dl (6.0-8.3)
[2024-11-03 16:06] LABS: Troponin I High Sensitivity 2.5 pg/ml (0-14)
--- NOTE | 2024-11-03 16:16 | Electrocardiogram Report ---
Test Reason : Blood Pressure : */* mmHG Vent. Rate : 95 BPM Atrial Rate : 95 BPM P-R Int : 172 ms QRS Dur : 78 ms QT Int : 364 ms P-R-T Axes : 69 39 38 degrees QTcB Int : 457 ms Normal sinus rhythm Normal ECG When compared with ECG of 13-Aug-2023 16:26, No significant change was found Confirmed by Laron Correia ([id number]) on 11/03/2024 4:16:37 PM Referred By: REFERRED SELF Confirmed By: Laron Correia
[2024-11-03 16:21] LABS: Partial Thromboplastin Ratio 1.1; Partial Thromboplastin Time 30 Seconds (21-31); Prothrombin Time 10.9 Seconds (9.0-12.0)
[2024-11-03 16:42] LABS: Adenovirus PCR Not Detected (NotDetected); Bordetella parapertussis PCR Not Detected (NotDetected); Bordetella pertussis PCR Not Detected (NotDetected); Chlamydia pneumoniae PCR Not Detected (NotDetected); Coronavirus 229E PCR Not Detected (NotDetected); Coronavirus CoV-2 (COVID19)PCR DETECTED (NotDetected); Coronavirus HKU1 PCR Not Detected (NotDetected); Coronavirus NL63 PCR Not Detected (NotDetected); Coronavirus OC43PCR Not Detected (NotDetected); Human Metapneumovirus PCR Not Detected (NotDetected); Influenza A PCR Not Detected (NotDetected); Influenza B PCR Not Detected (NotDetected); Mycoplasma pneumoniae PCR Not Detected (NotDetected); Parainfluenza Virus 1 PCR Not Detected (NotDetected); Parainfluenza Virus 2 PCR Not Detected (NotDetected); Parainfluenza Virus 3 PCR Not Detected (NotDetected); Parainfluenza Virus 4 PCR Not Detected (NotDetected); Respiratory Syncytial VirusPCR Not Detected (NotDetected); Rhinovirus/Enterovirus PCR Not Detected (NotDetected)
--- NOTE | 2024-11-03 16:48 | Emergency Department Note ---
Impression & Plan AMS (altered mental status), Weakness, COVID-19 ED Provider Note NAME: KENZIE BAUM AGE: 69 SEX: Female INFORMANT: Patient, EMS and ED PROVIDER(S): Ankit Samuel MD CHIEF COMPLAINT: Weakness, strokelike symptoms PLAN: Disposition: Admitted Outpatient prescription management: none Referral: None MEDICAL DECISION MAKING: Patient presented and was a stroke alert. By time of onset and history she was out of the window not considered a reasonable TNK candidate. Stroke imaging was performed and did not reveal any acute abnormalities. Chest x-ray showed findings consistent with a viral process. Her CBC and chemistry panels were unremarkable. Urinalysis was unremarkable as well. ECG did not reveal any acute findings. Patient was found to be COVID-positive. Her did present to the emergency department and noted that she has been having intermittent headaches for over a month and then becomes weak afterwards. Headaches are not consistent. There was no reported trauma. He also notes that she has had some residual left-sided weakness over the last year. Given the findings today and history the p patient will need further evaluation and management in the hospital. [facility] with [facility] Patient was evaluated in the ER and admitted for further management. [place] Care/management discussed with: manager federal Level of care consideration(s): After review of the information above and other included data, I feel the patient requires escalation of care to admission Triage Nursing notes: reviewed and agree them. Vital Signs: reviewed and remarkable for no significant abnormalities Additional History obtained from: Patient's Chronic Medical/Social Conditions affecting care: Diabetes Prior/ Outside/ External records reviewed: none Differential Diagnosis: CVA, TIA,Infection, dehydration, metabolic abnormality, hypo/hyperglycemia, electrolyte disturbance, anemia, hypoxia, cardiac sources, intracerebral event, toxicologic, neurologic, as well as other pathologies. Diagnostics, independently interpreted by me: ECG: Twelve-lead ECG reveals normal sinus rhythm at 95 beats per minute. No evidence of pericarditis, ischemia, ectopy, or dysrhythmia. Cardiac Monitoring: Cardiac monitoring ordered by me: The patient was placed on continuous cardiac monitoring and observed. It revealed a normal sinus rhythm at 82 beats per minute without ectopy or evidence of dysrhythmia. Medical decision rules: none Imaging studies: Chest x-ray consistent with viral process parabronchial cuffing. No focal infiltrate. Head CT: A noncontrast CT scan of the head was performed and was negative for tumor, fracture, intracranial hemorrhage, or other acute pathology. CT and CT angiography as noted below. I refer you to the EMR for further details. HPI: 69 year old Female arrives for evaluation of possible strokelike symptoms and weakness. The patient is a poor historian and by history had a change in mental status around 11 AM today. She reportedly had hypoglycemia. Her sugar was corrected. She seemed to have left-sided weakness. Patient was also complaining of intermittent headache which has currently resolved. She was sent to the ER for further evaluation. Patient states she feels generally weak. Patient was recently admitted to the hospital for a right leg fracture. EMS noted blood sugar was 111. Pt denies LOC,fevers, chills, visual changes, neck pain, chest pain, breathing difficulties, nausea, vomiting, abdominal pain, urinary symptoms, or other complaints.. PAST MEDICAL HISTORY: See Below, dementia, diabetes PAST SURGICAL HISTORY: See Below, SOCIAL HISTORY: See Below, HOME MEDICATIONS: See Below ALLERGIES: See Below VITALS: See Below PHYSICAL EXAMINATION: GENERAL: Awake, alert, [id number], in no distress HENT: Normocephalic, atraumatic. Oropharynx unremarkable. EYES: Normal conjunctiva. Sclera non-icteric. PERRLA. EOMI. NECK: Inspection normal. Non-tender. Supple. No nuchal rigidity. FROM. No masses. RESPIRATORY: Clear to auscultation. No wheezes. No rales. Mildly increased respiratory effort. CARDIAC: Normal rate. Normal rhythm. No murmurs. No rubs. Extremities warm and well perfused. Pulses equal. No JVD. GI: Soft, non-distended. No tenderness to palpation. No rebound or guarding. No masses. RECTAL: Deferred. MUSCULOSKELETAL: Chest examination reveals no tenderness. The back is symmetrical on inspection without obvious abnormality. There is no CVA tenderness to palpation. No joint edema. LOWER EXTREMITIES: Calves are equal size bilaterally and non-tender. No edema. No discoloration. NEURO: Mildly confused sensorium. No sensory or motor deficits noted. Speech soft. 4 out of 5 strength noted in the left upper and lower extremities. 5 out of 5 strength in the right upper and right lower extremities. Cast in place on the right lower extremity. SKIN: No rash or jaundice noted. PROCEDURES: none CRITICAL CARE: none OBSERVATION NOTE: none Past Med/Surg History Problem List (Updated 11/03/24 @ 19:29 by Ankit Samuel MD) COVID-19 (Acute) Stroke-like symptom Weakness (Acute) AMS (altered mental status) (Acute) FH: cholecystectomy Fall (Acute) Closed fibular fracture (Acute) Diabetes type 1, controlled Adjustment disorder with mixed anxiety and depressed mood Lipoma of right upper extremity Lipoma of left lower extremity HTN (hypertension) Hypothyroidism (Chronic) GERD (gastroesophageal reflux disease) (Chronic) pt denies Surgical History H/O: hysterectomy S/P excision of lipoma (06/26/23) Right Upper Extremity Lipoma Excision Times 4; Left Lower Extremity Lipoma Excision Times 1(Bilateral) - Louis Silva, DO History of repair of rotator cuff bilateral H/O colonoscopy History of hysterectomy Non cancerous fibroid removal of 6 lbs History of cholecystectomy 1987 History of tonsillectomy Family History Grandmother (Maternal) Diabetes Mother Hypertension Heart disease Grandmother (Paternal) Diabetes Social History Smoking Status: Unknown if ever smoked Second Hand Exposure: No; Do You Dip or Chew Tobacco: No; Hx Alcohol Use: No Hx Substance Use: No Preferred Language: [place] Communication Ability: Effective Telecom Analyst Required: No Beliefs That Will Affect Care: None marital status: Current Living Situation: Spouse How many Children do You have: 2 Feels Safe at Home: Yes Diet: diabetic during the past year weight has: remained stable Assistive Devices: None Allergies Allergies Allergy/AdvReac Type Severity Reaction Status Date / Time dextromethorphan Allergy Severe nyquil -> Verified 11/03/24 16:09 Difficulty Breathing doxylamine Allergy Severe nyquil -> Verified 11/03/24 16:09 Difficulty Breathing pseudoephedrine Allergy Severe nyquil -> Verified 11/03/24 16:09 Difficulty Breathing glyburide Allergy Intermediate RASH - pt Verified 11/03/24 16:09 and denies tetanus toxoid, adsorbed Allergy Intermediate painful Verified 11/03/24 16:09 joints aspartame Allergy Incontinenc Verified 11/03/24 16:09 e phenylalanine Allergy Incontinenc Verified 10/13/24 13:13 e stevioside [From Stevia] Allergy Incontinenc Verified 11/03/24 16:09 e sucralose Allergy Incontinenc Verified 11/03/24 16:09 [From Splenda (sucralose)] e vasquez pepper AdvReac Gastrointestinal Verified 11/03/24 16:09 Upset black pepper AdvReac Gastrointestinal Verified 11/03/24 16:09 Upset Ethanol Allergy Severe nyquil -> Uncoded 11/03/24 16:09 Difficulty Breathing Home Meds Home Medications Medication Instructions Recorded Confirmed fluoxetine 20 mg capsule 20 mg PO BID 05/19/23 11/03/24 cholecalciferol (vitamin D3) 50 50 mcg PO QAM 06/18/23 11/03/24 mcg (2,000 unit) tablet folic acid 1 mg tablet 1 mg PO QAM 06/18/23 11/03/24 magnesium 200 mg tablet 200 mg PO HS 06/18/23 11/03/24 melatonin 10 mg tablet 10 mg PO HS PRN Sleep 06/18/23 11/03/24 pen needle, diabetic 32 gauge x 06/19/23 08/15/2432" (BD Cristy 2nd Gen Pen Needle) cholestyramine (with sugar) 4 gram 4 ea PO QAM 10/09/24 11/03/24 oral powder (Questran) hydrochlorothiazide 12.5 mg tablet 12.5 mg PO QA 10/09/24 11/03/24 insulin aspart U-100 100 unit/mL 10 unit subcut DAILY 10/09/24 11/03/24 (3 mL) subcutaneous pen (Novolog FlexPen U-100 Insulin aspart) insulin glargine U-300 conc 300 82 unit subcut QA 10/09/24 11/03/24 unit/mL (3 mL) subcutaneous pen (Toujeo Max U-300 SoloStar) levothyroxine 125 mcg tablet 125 mcg PO DAILYBB 10/09/24 11/03/24 lisinopril 5 mg tablet 5 mg PO QAM 10/09/24 11/03/24 simvastatin 10 mg tablet 10 mg PO HS 10/09/24 11/03/24 acetaminophen 325 mg tablet 650 mg PO Q4 PRN Pain 11/03/24 11/03/24 acetaminophen 325 mg tablet 650 mg PO Q4 PRN TEMP=>100 11/03/24 11/03/24 aspirin 81 mg tablet,delayed 81 mg PO AMHS 11/03/24 11/03/24 release insulin aspart U-100 100 unit/mL 16 unit subcut QDD 11/03/24 11/03/24 (3 mL) subcutaneous pen (Novolog FlexPen U-100 Insulin aspart) insulin aspart U-100 100 unit/mL 30 unit subcut QDB 11/03/24 11/03/24 (3 mL) subcutaneous pen (Novolog FlexPen U-100 Insulin aspart) oxycodone-acetaminophen 5 mg-325 1 tab PO Q6 PRN PAIN 11/03/24 11/03/24 mg tablet (Percocet) MODERATE-SEVERE Previous Rx's Medication Instructions Recorded blood-glucose meter (OneTouch #1 ea 03/20/22 Ultra2 Meter kit) OneTouch Ultra Test (blood sugar #400 ea 10/17/22 diagnostic) Dexcom G6 Bag Press Operator (blood-glucose #1 ea 02/13/23 meter,continuous) Dexcom G6 Sensor (blood-glucose #9 ea 02/13/23 sensor) Dexcom G6 Transmitter #1 ea 02/13/23 (blood-glucose transmitter) Results & Data (ED) Vital Signs Vital Signs - 24 hr 11/03/24 14:44 11/03/24 14:44 11/03/24 15:17 Temperature 37.0 C Temperature Source Oral Pulse Rate 95 H 93 H Pulse Rate from SpO2 Sensor Respiratory Rate 26 H 25 H Blood Pressure 133/72 Blood Pressure Mean 92 Pulse Oximetry 95 94 Oxygen Delivery Method Room Air Room Air Sepsis Recent Fever Within 48 Hours No Sepsis New/Unexplained Change in Mental Status N/A Sepsis Action Taken by Nursing No Action Required 11/03/24 15:38 11/03/24 15:47 11/03/24 15:48 Temperature Temperature Source Pulse Rate 102 H 92 H Pulse Rate from SpO2 Sensor 101 H 92 H Respiratory Rate 25 H 40 H 26 H Blood Pressure 143/78 H Blood Pressure Mean 113 Pulse Oximetry 94 95 Oxygen Delivery Method Room Air Room Air Sepsis Recent Fever Within 48 Hours Sepsis New/Unexplained Change in Mental Status Sepsis Action Taken by Nursing 11/03/24 15:48 11/03/24 15:51 11/03/24 16:01 Temperature 37.4 C Temperature Source Rahman Cath ( Temp Sensing) Pulse Rate 92 H Pulse Rate from SpO2 Sensor Respiratory Rate Blood Pressure 143/78 H Blood Pressure Mean 113 Pulse Oximetry Oxygen Delivery Method Sepsis Recent Fever Within 48 Hours Sepsis New/Unexplained Change in Mental Status Sepsis Action Taken by Nursing Laboratory Data 11/03/24 15:28 11/03/24 15:28 Lab Results 11/03/24 11/03/24 11/03/24 Range/Units 15:22 15:28 15:41 WBC 11.06 H (4.8-10.8) K/ul RBC 4.66 (4.20-5.40) M/uL Hgb 12.9 (12.0-16.0) g/dl Hct 38.9 (37.0-47.0) % MCV 83.5 (80.0-100.0) fL MCH 27.7 (25.0-34.0) pg MCHC 33.2 (32.0-36.0) g/dL RDW Std Deviation 47.6 H (36.4-46.3) fL RDW Coeff of Rossi 15.8 H (11.5-14.5) % Plt Count 397 (130-400) K/uL MPV 9.7 (9.4-12.4) fL Immature Gran % (Auto) 0.5 % Neut % (Auto) 64.2 % Lymph % (Auto) 18.6 % [place] % (Auto) 14.4 % Eos % (Auto) 1.5 % Baso % (Auto) 0.8 % Neut # (Auto) 7.10 H (1.40-6.50) K/uL Lymph # (Auto) 2.06 (1.20-3.40) K/uL [place] # (Auto) 1.59 H (0.11-0.59) K/uL Eos # (Auto) 0.17 (0.00-0.50) K/uL Baso # (Auto) 0.09 (0.00-0.20) K/uL Immature Gran # (Auto) 0.05 (0.01-0.20) K/uL PT 10.9 (9.0-12.0) Seconds INR 1.0 (0.9-1.1) APTT 30 (21-31) Seconds PTT Ratio 1.1 Sodium 132 L (136-145) mmol/L Potassium 4.1 (3.5-5.1) mmol/L Chloride 97 L (98-107) mmol/L Carbon Dioxide 27 (21-32) mmol/L Anion Gap 8 (3-11) BUN 16 (6-23) mg/dl Creatinine 0.78 (0.6-1.2) mg/dl Est Cr Clr Drug Dosing 80.4 ml/min eGFR 82.17 BUN/Creatinine Ratio 20.5 H (10-20) Glucose 98 (70-99(Fasting)) mg/dl POC Glucose 102 H (70-99) mg/dl Calcium 9.3 (8.6-10.3) mg/dl Magnesium 2.0 (1.7-2.4) mg/dl Total Bilirubin 0.3 (0.2-1.0) mg/dl AST 20 (13-39) U/L ALT 22 (7-52) U/L Alkaline Phosphatase 89 (34-104) U/L Troponin I High Sens 2.5 (0-14) pg/ml Total Protein 6.9 (6.0-8.3) gm/dl Albumin 3.9 (3.4-5.0) gm/dl Globulin 3.0 (2.5-4.0) gm/dl Albumin/Globulin Ratio 1.3 (0.9-2) Procalcitonin 0.02 (0-0.5) ng/ml Urine Color Yellow Urine Appearance Clear (Clear) Urine pH 7.5 (4.5-7.5) Ur Specific [place] 1.016 (1.000-1.030) Urine Protein Negative (Negative) Urine Glucose (UA) Negative (Negative) Urine Ketones Negative (Negative) Urine Blood Negative (Negative) Urine Nitrite Negative (Negative) Urine Bilirubin Negative (Negative) Urine Urobilinogen Negative (Negative) Ur Leukocyte Esterase Negative (Negative) Adenovirus (PCR) (NotDetected) B. pertussis DNA (PCR) (NotDetected) B.parapertussis DNA PCR (NotDetected) C. pneumoniae DNA (PCR) (NotDetected) Coronavirus OC43 (PCR) (NotDetected) Coronavirus HKU1 (PCR) (NotDetected) Coronavirus 229E (PCR) (NotDetected) SARS-CoV-2 (PCR) (NotDetected) Coronavirus NL63 (PCR) (NotDetected) Human Metapneumovir PCR (NotDetected) Influenza Type A (PCR) (NotDetected) Influenza Type B (PCR) (NotDetected) M. pneumoniae (PCR) (NotDetected) Parainfluenza 1 (PCR) (NotDetected) Parainfluenza 2 (PCR) (NotDetected) Parainfluenza 3 (PCR) (NotDetected) Parainfluenza 4 (PCR) (NotDetected) RSV (PCR) (NotDetected) Entero/Rhino (PCR) (NotDetected) Blood Type A Positive Antibody Screen NEGATIVE 11/03/24 Range/Units 15:44 WBC (4.8-10.8) K/ul RBC (4.20-5.40) M/uL Hgb (12.0-16.0) g/dl Hct (37.0-47.0) % MCV (80.0-100.0) fL MCH (25.0-34.0) pg MCHC (32.0-36.0) g/dL RDW Std Deviation (36.4-46.3) fL RDW Coeff of Rossi (11.5-14.5) % Plt Count (130-400) K/uL MPV (9.4-12.4) fL Immature Gran % (Auto) % Neut % (Auto) % Lymph % (Auto) % [place] % (Auto) % Eos % (Auto) % Baso % (Auto) % Neut # (Auto) (1.40-6.50) K/uL Lymph # (Auto) (1.20-3.40) K/uL [place] # (Auto) (0.11-0.59) K/uL Eos # (Auto) (0.00-0.50) K/uL Baso # (Auto) (0.00-0.20) K/uL Immature Gran # (Auto) (0.01-0.20) K/uL PT (9.0-12.0) Seconds INR (0.9-1.1) APTT (21-31) Seconds PTT Ratio Sodium (136-145) mmol/L Potassium (3.5-5.1) mmol/L Chloride (98-107) mmol/L Carbon Dioxide (21-32) mmol/L Anion Gap (3-11) BUN (6-23) mg/dl Creatinine (0.6-1.2) mg/dl Est Cr Clr Drug Dosing ml/min eGFR BUN/Creatinine Ratio (10-20) Glucose (70-99(Fasting)) mg/dl POC Glucose (70-99) mg/dl Calcium (8.6-10.3) mg/dl Magnesium (1.7-2.4) mg/dl Total Bilirubin (0.2-1.0) mg/dl AST (13-39) U/L ALT (7-52) U/L Alkaline Phosphatase (34-104) U/L Troponin I High Sens (0-14) pg/ml Total Protein (6.0-8.3) gm/dl Albumin (3.4-5.0) gm/dl Globulin (2.5-4.0) gm/dl Albumin/Globulin Ratio (0.9-2) Procalcitonin (0-0.5) ng/ml Urine Color Urine Appearance (Clear) Urine pH (4.5-7.5) Ur Specific [place] (1.000-1.030) Urine Protein (Negative) Urine Glucose (UA) (Negative) Urine Ketones (Negative) Urine Blood (Negative) Urine Nitrite (Negative) Urine Bilirubin (Negative) Urine Urobilinogen (Negative) Ur Leukocyte Esterase (Negative) Adenovirus (PCR) Not Detected (NotDetected) B. pertussis DNA (PCR) Not Detected (NotDetected) B.parapertussis DNA PCR Not Detected (NotDetected) C. pneumoniae DNA (PCR) Not Detected (NotDetected) Coronavirus OC43 (PCR) Not Detected (NotDetected) Coronavirus HKU1 (PCR) Not Detected (NotDetected) Coronavirus 229E (PCR) Not Detected (NotDetected) SARS-CoV-2 (PCR) DETECTED A (NotDetected) Coronavirus NL63 (PCR) Not Detected (NotDetected) Human Metapneumovir PCR Not Detected (NotDetected) Influenza Type A (PCR) Not Detected (NotDetected) Influenza Type B (PCR) Not Detected (NotDetected) M. pneumoniae (PCR) Not Detected (NotDetected) Parainfluenza 1 (PCR) Not Detected (NotDetected) Parainfluenza 2 (PCR) Not Detected (NotDetected) Parainfluenza 3 (PCR) Not Detected (NotDetected) Parainfluenza 4 (PCR) Not Detected (NotDetected) RSV (PCR) Not Detected (NotDetected) Entero/Rhino (PCR) Not Detected (NotDetected) Blood Type Antibody Screen Administered Medications Discontinued Medications Ioversol (Optiray 320 125ml) 115 ml IV ONCE ONE Stop: 11/03/24 14:53 Last Admin: 11/03/24 16:46 Dose: Not Given Documented By: CHICO Ioversol (Optiray 320 125ml) 115 ml IV ONCE ONE Stop: 11/03/24 15:06 Last Admin: 11/03/24 15:05 Dose: 115 ml Documented By: YANA Imaging Data Radiologist's Impression: Head CT 11/03/24 14:44 CT OF THE HEAD WITHOUT CONTRAST CLINICAL HISTORY: neuro deficit, acute stroke suspected COMPARISON STUDY: Head CT October 09, 2024. TECHNIQUE: Helical axial images of the head were obtained without IV contrast. Automated exposure control was utilized for the study. A dose lowering technique was utilized adhering to the principles of ALARA. FINDINGS: This study is mildly compromised by artifact. No acute intracranial hemorrhage, midline shift or mass effect is present. The ventricular system is stable. White matter hypodensities are unchanged and favor small vessel disease. The basal cisterns are patent. No extra-axial collections are present. There are no findings to suggest acute dural sinus thrombosis or acute territorial infarct. No significant calvarial abnormalities are present. Visualized portions of the sinuses and mastoid air cells are clear. IMPRESSION: No acute intracranial findings. No change in appearance of the brain. Exam mildly compromised by artifact. ACT 112: Negative or not required by law. Electronically signed by: Arthur Rivera M.D. 11/03/2024 3:10 PM Head CTA 11/03/24 14:44 CT angio head w con CLINICAL HISTORY: neuro deficit, acute stroke suspected. COMPARISON STUDY: None TECHNIQUE: Unenhanced axial CT scan of the brain is performed. Subsequently, following the IV administration of 115 cc of Optiray, CT angiogram of the brain was performed from the skull base to the vertex. Images are reviewed in the axial, sagittal, and coronal planes. 3-D MIPS images are created and assessed. IV contrast was administered without complication. All measurements were obtained according to NASCET criteria. A dose lowering technique was utilized adhering to the principles of ALARA. CT DOSE: 1837.22 mGy.cm FINDINGS: The M1 and A1 segments are symmetrical bilaterally. There is no evidence of occlusive disease or significant narrowing. The basilar artery is somewhat diminutive and this may be associated with pronounced contribution of the posterior cerebral arteries by the posterior communicating arteries bilaterally. There are calcifications in the carotid siphons. IMPRESSION: No occlusive disease or significant intracranial stenosis identified. ACT 112: Negative or not required by law. The above report was generated using voice recognition software. It may contain grammatical, syntax or spelling errors. Electronically signed by: Asha Hernandez M.D. 11/03/2024 3:22 PM Neck CTA 11/03/24 14:44 CT angio neck with con CLINICAL HISTORY: neuro deficit, acute stroke suspected. COMPARISON STUDY: None TECHNIQUE: Following the IV administration of 115 of Optiray, CT angiogram of the neck was performed from the aortic arch to the skull base. Images are reviewed in the axial, sagittal, and coronal planes. 3-D MIPS images are created and assessed. IV contrast was administered without complication. All measurements were calculated based on NASCET criteria. A dose lowering technique was utilized adhering to the principles of ALARA. CT DOSE: 1837.22mGy*cm FINDINGS: There is no evidence of occlusive disease or hemodynamically significant stenosis in the neck. There is no evidence of dissection. IMPRESSION: Negative study ACT 112: Negative or not required by law. The above report was generated using voice recognition software. It may contain grammatical, syntax or spelling errors. Electronically signed by: Asha Hernandez M.D. 11/03/2024 3:27 PM Chest X-Ray 11/03/24 17:06 EXAM: Portable AP chest radiograph TECHNIQUE: AP portable radiograph of the chest was obtained. INDICATION: Cough Comparison: Chest radiograph August 13, 2023 FINDINGS: LINES and TUBES: None CARDIOVASCULAR: Cardiac silhouette is stably mildly enlarged in size. LUNGS/PLEURA: No focal consolidation identified. Mild peribronchial cuffing that may be seen with bronchiolitis and/or viral pneumonia. No significant pleural fluid. No discernible pneumothorax. OSSEOUS/OTHER: No displaced acute osseous process identified. IMPRESSION: No focal consolidation identified. Mild peribronchial cuffing that may be seen with bronchiolitis and/or viral pneumonia. Electronically signed by Saturnino Ortega 11-03-2024 6:30 PM Discharge Plan Visit Data Chief Complaint: Stroke Alert Stated Complaint: STROKE ALERT ED Provider: Ankit Samuel Discharge Problem: AMS (altered mental status), Weakness, COVID-19 Patient Disposition: Admitted As Inpatient Discharge Instructions Interventions: ED Discharge Assessment Last Done: 11/03/24 18:26
--- NOTE | 2024-11-03 17:22 | History & Physical Report ---
<Statement entered by Guicho Harris, DO - 11/03/24 18:56> I have seen and examined the patient and have discussed the case with the advance practice provider. I have reviewed the advanced practitioner's documentation, and I agree with, and take responsibility for that plan of care. Patient seen while in ED. at bedside. Patient seems quite drowsy but does pay attention to the conversation and answers questions. states patient glucose was less than 70 from approximately 12:15 PM to 1 PM this afternoon. He then also shared that very frequently her glucose is low in the evening hours. He calls in to [facility] to instructed staff to give her something to eat for her low glucose. Suspect patient may be having some metabolic encephalopathy with combination of COVID infection and hypoglycemia that is now persisting a bit longer due to her infection. Neurological symptoms may be associated with this as well. Agree with plans for MRI and further monitoring Plan of care as outlined below I spent a total of 22 minutes coordinating, documenting, and providing care for this patient excluding time spent by another provider/QHP. Date of Service November 03, 2024 Assessment & Plan (1) Stroke-like symptom: (2) Hypoglycemia: Plan This is a 69 yr old F who has a significant PMH of HTN, HLD, T1DM insulin controlled, hypothyroidism, Morbidly obese, Gerd, Mild Dementia, Depression and insomnia who presents to ED 2/2 altered mental status. Of significant pt was hospitalized 126 after sustaining a fall and R distal fibular fx requiring casting. She was discharged to [facility] rehab. Pt presents with at bedside who does most of the talking. Concerns for LUE weakness and R facial droop. Head CT, Head/Neck CTA unremarkable. LKW ~ 1100, pt out of window for consideration for TPA. Pt with known hypoglycemia and evidence of recent a1c of 5.9. Feel sx very likely to be related to hypoglycemic event #Stroke Like Sx #Altered Mental status - resolved pt alert and oriented to basics Headaches x 4 weeks will obtain MRI Brain - if negative no further stroke w/u indicated, if MRI + will need to adjust treatment plan Pt still appears to be lethargic and weak, may be in setting of Covid-19, obtain UDS PT/OT will reduce insulin to reduce liklihood of hypoglycemic episodes #Sars COV-2 relatively asymptomatic, not requiring o2 did discuss remdesivir with given pt high risk and it was decided for forego this treatment at this time Covid precautions ordered #T1DM A1C 5.22 sep 2024, feel pt is too tightly controlled given age and comorbidities will reduce insulin by 50% given suspected reduce intake in setting of covid Goal A1C for pt should be 7-8, could be correlating to pts sx as well as YANES over the last few weeks #Hyponatremia - chronic Na 132, hold HCTZ will give gentle fluid x 500ml repeat bmp in a.m. #Mild Dementia -at baseline #R fibular fx follows [facility], NW[facility], cast in place, had outpt follow up and will follow up again in 4 weeks continue PT/OT DVT ppx: SQ Lovenox, will reduce ASA to once daily while on lovenox FULL CODE PCP: Hemanth Dispo: admit I spent a total of 70 minutes coordinating, documenting and providing care for this patient excluding time spent in the performance of separately billed services or time spent by another provider/QHP. Pt was seen and examined in collaboration with Dr. 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 Primary Care Provider: Oswaldo Saxena MD This is a 69 yr old F who has a significant PMH of HTN, HLD, T1DM insulin controlled, hypothyroidism, Morbidly obese, Gerd, Mild Dementia, Depression and insomnia who presents to ED 2/2 altered mental status. Of significant pt was hospitalized 10/09-10/13 after sustaining a fall and R distal fibular fx requiring casting. She was discharged to [facility] rehab. is at bedside who helps elicit history. He states she had been doing well with therapy and he was anticipating she would be coming home soon. He states she has been having severe YANES for the last 4 weeks and they have been mostly frontal. He states over the last few days he noted her left side to be more weak and then today he noted her R side of her face was drooping. He alerted the PA at the SNF who recommended ED evaluation. Pt was a stroke alert. LKW was approx 11 a.m.; however uncertain given the timing of the L sided weakness being a few days ago. It is notable that pts BSG was in the 40s around time of sx onset and felt she was confused. Her sx improved with improved BSG but she still is lethargic, "like she is drugged." He reports pt was taking oxycodone and he told the [facility] to stop giving this to her as it was making her loopy. follows her BSG on his phone and he states that he often has to call nissa to give her something as her bsg is going below 70s. Pt answers questions approp. She complains of headache and states its 5/10 currently. Denies f/c/s, chest pain, sob, cough, n/v/d. She denies visual changes or change in bowel and bladder. Initial work up head ct and CTAS were negative. SHe is being admitted for further work up, but initially it is felt this may be 2/2 hypoglycemia on top of testing + for Sars COV2. Allergies Allergy/AdvReac Type Severity Reaction Status Date / Time dextromethorphan Allergy Severe nyquil -> Verified 11/03/24 16:09 Difficulty Breathing doxylamine Allergy Severe nyquil -> Verified 11/03/24 16:09 Difficulty Breathing pseudoephedrine Allergy Severe nyquil -> Verified 11/03/24 16:09 Difficulty Breathing glyburide Allergy Intermediate RASH - pt Verified 11/03/24 16:09 and denies tetanus toxoid, adsorbed Allergy Intermediate painful Verified 11/03/24 16:09 joints aspartame Allergy Incontinenc Verified 11/03/24 16:09 e phenylalanine Allergy Incontinenc Verified 10/13/24 13:13 e stevioside [From Stevia] Allergy Incontinenc Verified 11/03/24 16:09 e sucralose Allergy Incontinenc Verified 11/03/24 16:09 [From Splenda (sucralose)] e vasquez pepper AdvReac Gastrointestinal Verified 11/03/24 16:09 Upset black pepper AdvReac Gastrointestinal Verified 11/03/24 16:09 Upset Ethanol Allergy Severe nyquil -> Uncoded 11/03/24 16:09 Difficulty Breathing Home Medications Medication Instructions Recorded Confirmed Type blood-glucose meter (OneTouch #1 ea 03/20/22 08/15/24 Rx Ultra2 Meter kit) OneTouch Ultra Test (blood sugar #400 ea 10/17/22 08/15/24 Rx diagnostic) Dexcom G6 Transcription Typist (blood-glucose #1 ea 02/13/23 08/15/24 Rx meter,continuous) Dexcom G6 Sensor (blood-glucose #9 ea 02/13/23 08/15/24 Rx sensor) Dexcom G6 Transmitter #1 ea 02/13/23 08/15/24 Rx (blood-glucose transmitter) fluoxetine 20 mg capsule 20 mg PO BID 05/19/23 11/03/24 History cholecalciferol (vitamin D3) 50 50 mcg PO QAM 06/18/23 11/03/24 History mcg (2,000 unit) tablet folic acid 1 mg tablet 1 mg PO QAM 06/18/23 11/03/24 History magnesium 200 mg tablet 200 mg PO HS 06/18/23 11/03/24 History melatonin 10 mg tablet 10 mg PO HS PRN Sleep 06/18/23 11/03/24 History pen needle, diabetic 32 gauge x 06/19/23 08/15/24 History " (BD Cristy 2nd Gen Pen Needle) cholestyramine (with sugar) 4 gram 4 ea PO QAM 10/09/24 11/03/24 History oral powder (Questran) hydrochlorothiazide 12.5 mg tablet 12.5 mg PO QAM 10/09/24 11/03/24 History insulin aspart U-100 100 unit/mL 10 unit subcut DAILY 10/09/24 11/03/24 History (3 mL) subcutaneous pen (Novolog FlexPen U-100 Insulin aspart) insulin glargine U-300 conc 300 82 unit subcut QAM 10/09/24 11/03/24 History unit/mL (3 mL) subcutaneous pen (Toujeo Max U-300 SoloStar) levothyroxine 125 mcg tablet 125 mcg PO DAILYBB 10/09/24 11/03/24 History lisinopril 5 mg tablet 5 mg PO QAM 10/09/24 11/03/24 History simvastatin 10 mg tablet 10 mg PO HS 10/09/24 11/03/24 History acetaminophen 325 mg tablet 650 mg PO Q4 PRN Pain 11/03/24 11/03/24 History acetaminophen 325 mg tablet 650 mg PO Q4 PRN TEMP=>100 11/03/24 11/03/24 History aspirin 81 mg tablet,delayed 81 mg PO AMHS 11/03/24 11/03/24 History release insulin aspart U-100 100 unit/mL 16 unit subcut QDD 11/03/24 11/03/24 History (3 mL) subcutaneous pen (Novolog FlexPen U-100 Insulin aspart) insulin aspart U-100 100 unit/mL 30 unit subcut QDB 11/03/24 11/03/24 History (3 mL) subcutaneous pen (Novolog FlexPen U-100 Insulin aspart) oxycodone-acetaminophen 5 mg-325 1 tab PO Q6 PRN PAIN 11/03/24 11/03/24 History mg tablet (Percocet) MODERATE-SEVERE Past Med/Surg History Problem List (Updated 11/03/24 @ 18:37 by Simran Lamb PA-C) Stroke-like symptom Weakness (Acute) AMS (altered mental status) (Acute) FH: cholecystectomy Fall (Acute) Closed fibular fracture (Acute) Diabetes type 1, controlled Adjustment disorder with mixed anxiety and depressed mood Lipoma of right upper extremity Lipoma of left lower extremity HTN (hypertension) Hypothyroidism (Chronic) GERD (gastroesophageal reflux disease) (Chronic) pt denies Surgical History H/O: hysterectomy S/P excision of lipoma (06/26/23) Right Upper Extremity Lipoma Excision Times 4; Left Lower Extremity Lipoma Excision Times 1(Bilateral) - Louis Silva DO History of repair of rotator cuff bilateral H/O colonoscopy History of hysterectomy Non cancerous fibroid removal of 6 lbs History of cholecystectomy 1986 History of tonsillectomy Family History Grandmother (Maternal) Diabetes Mother Hypertension Heart disease Grandmother (Paternal) Diabetes Social History Smoking Status: Unknown if ever smoked Second Hand Exposure: No; Do You Dip or Chew Tobacco: No; Hx Alcohol Use: No Hx Substance Use: No Preferred Language: Greek Communication Ability: Effective Cable Tool Operator Required: No Beliefs That Will Affect Care: None marital status: Current Living Situation: Spouse How many Children do You have: 2 Feels Safe at Home: Yes Diet: diabetic during the past year weight has: remained stable Assistive Devices: None Review of Systems Review of Systems: All systems reviewed & are unremarkable except as noted in HPI & below Physical Exam Physical Exam: Constitutional: Obese, F, lying in bed, alert and answers questions approp, but is drowsy and falls asleep easily. vitals as above, NAD Head: Normocephalic, Atraumatic Eyes: PERRL, conjunctivae normal, anicteric sclerae ENMT: external ear and nose normal, oropharynx normal Neck: trachea midline, no thyromegaly normal visual inspection Respiratory: normal respiratory effort, lungs clear to auscultation, no wheeze, rales, rhonchi. Normal insp/exp effort, no accessory muscle use Cardiovascular: RRR, no murmur, no edema Vessels: no JVD or carotid bruit Chest: normal inspection of chest Abdomen: obese, normal bowel sounds, soft, nontender, no hepatosplenomegaly Musculoskeletal: no cyanosis or clubbing, LUE weakness 4/5, AROM x 4, RLE cast, NVI distally Skin: no rashes, warm and dry normal turgor Neurologic: PERRL, EOMI, accommodation nl, + R sided facial droop, no dysa rthria CN's II-XI intact bilaterally and moves all extremities Psychiatric: A+Ox3 to basics, euthymic affect Lymphatic: no cervical or axillary lymphadenopathy : deluca with clear yellow urine noted Results & Data Results & Data Vital Signs (Past 12 Hours) Vital Signs Temp Pulse Resp BP Pulse Ox O2 Del Method 11/03/24 16:01 37.4 C 11/03/24 15:51 92 H 11/03/24 15:48 143/78 H 11/03/24 15:48 26 H 143/78 H 11/03/24 15:47 92 H 40 H 95 Room Air 11/03/24 15:38 102 H 25 H 94 Room Air 11/03/24 15:17 93 H 25 H 11/03/24 14:44 94 Room Air 11/03/24 14:44 37.0 C 95 H 26 H 133/72 95 Room Air Laboratory Results I have independently reviewed and interpreted patient's admitting labs including CBC, CMP, PTT, PT/INR, procal, UA, resp biofire, mag and troponin. Diagnostic Findings Head CT 11/03/24 14:44 CT OF THE HEAD WITHOUT CONTRAST CLINICAL HISTORY: neuro deficit, acute stroke suspected COMPARISON STUDY: Head CT October 09, 2024. TECHNIQUE: Helical axial images of the head were obtained without IV contrast. Automated exposure control was utilized for the study. A dose lowering technique was utilized adhering to the principles of ALARA. FINDINGS: This study is mildly compromised by artifact. No acute intracranial hemorrhage, midline shift or mass effect is present. The ventricular system is stable. White matter hypodensities are unchanged and favor small vessel disease. The basal cisterns are patent. No extra-axial collections are present. There are no findings to suggest acute dural sinus thrombosis or acute territorial infarct. No significant calvarial abnormalities are present. Visualized portions of the sinuses and mastoid air cells are clear. IMPRESSION: No acute intracranial findings. No change in appearance of the brain. Exam mildly compromised by artifact. ACT 112: Negative or not required by law. Electronically signed by: Arthur Rivera M.D. 11/03/2024 3:10 PM Head CTA 11/03/24 14:44 CT angio head w con CLINICAL HISTORY: neuro deficit, acute stroke suspected. COMPARISON STUDY: None TECHNIQUE: Unenhanced axial CT scan of the brain is performed. Subsequently, following the IV administration of 115 cc of Optiray, CT angiogram of the brain was performed from the skull base to the vertex. Images are reviewed in the axial, sagittal, and coronal planes. 3-D MIPS images are created and assessed. IV contrast was administered without complication. All measurements were obtained according to NASCET criteria. A dose lowering technique was utilized adhering to the principles of ALARA. CT DOSE: 1837.22 mGy.cm FINDINGS: The M1 and A1 segments are symmetrical bilaterally. There is no evidence of occlusive disease or significant narrowing. The basilar artery is somewhat diminutive and this may be associated with pronounced contribution of the posterior cerebral arteries by the posterior communicating arteries bilaterally. There are calcifications in the carotid siphons. IMPRESSION: No occlusive disease or significant intracranial stenosis identified. ACT 112: Negative or not required by law. The above report was generated using voice recognition software. It may contain grammatical, syntax or spelling errors. Electronically signed by: Asha Hernandez M.D. 11/03/2024 3:22 PM Neck CTA 11/03/24 14:44 CT angio neck with con CLINICAL HISTORY: neuro deficit, acute stroke suspected. COMPARISON STUDY: None TECHNIQUE: Following the IV administration of 115 of Optiray, CT angiogram of the neck was performed from the aortic arch to the skull base. Images are reviewed in the axial, sagittal, and coronal planes. 3-D MIPS images are created and assessed. IV contrast was administered without complication. All measurements were calculated based on NASCET criteria. A dose lowering technique was utilized adhering to the principles of ALARA. CT DOSE: 1837.22mGy*cm FINDINGS: There is no evidence of occlusive disease or hemodynamically significant stenosis in the neck. There is no evidence of dissection. IMPRESSION: Negative study ACT 112: Negative or not required by law. The above report was generated using voice recognition software. It may contain grammatical, syntax or spelling errors. Electronically signed by: Asha Hernandez M.D. 11/03/2024 3:27 PM Medications Administered Medication List Discontinued Medications Ioversol (Optiray 320 125ml) 115 ml IV ONCE ONE Stop: 11/03/24 14:53 Last Admin: 11/03/24 16:46 Dose: Not Given Documented By: CHICO Ioversol (Optiray 320 125ml) 115 ml IV ONCE ONE Stop: 11/03/24 15:06 Last Admin: 11/03/24 15:05 Dose: 115 ml Documented By: YANA ECG Additional Comments: I have independently reviewed and interpreted patient's admitting EKG which revealed: 95 wbc, qt 457ms, no st t wave change COVID-19 Results Results COVID-19 Adm Lab Results: RBC 4.66 M/uL (4.20-5.40) 11/03/24 WBC 11.06 K/ul (4.8-10.8) H 11/03/24 Hgb 12.9 g/dl (12.0-16.0) 11/03/24 Hct 38.9 % (37.0-47.0) 11/03/24 Plt Count 397 K/uL (130-400) 11/03/24 Neutrophils (%) (Auto) 64.2 % 11/03/24 Lymphocytes (%) (Auto) 18.6 % 11/03/24 Monocytes # (Auto) 1.59 K/uL (0.11-0.59) H 11/03/24 Eosinophils # (Auto) 0.17 K/uL (0.00-0.50) 11/03/24 Immature Granulocyte % (Auto) 0.5 % 11/03/24 Neutrophils # (Auto) 7.10 K/uL (1.40-6.50) H 11/03/24 Lymphocytes # (Auto) 2.06 K/uL (1.20-3.40) 11/03/24 Monocytes # (Auto) 1.59 K/uL (0.11-0.59) H 11/03/24 Eosinophils # (Auto) 0.17 K/uL (0.00-0.50) 11/03/24 Basophils # (Auto) 0.09 K/uL (0.00-0.20) 11/03/24 Immature Granulocyte # (Auto) 0.05 K/uL (0.01-0.20) 5 Na 132 mmol/L (136-145) L 11/03/24 K 4.1 mmol/L (3.5-5.1) 11/03/24 Cl 97 mmol/L (98-107) L 11/03/24 CO2 27 mmol/L (21-32) 11/03/24 Anion Gap 8 (3-11) 11/03/24 BUN 16 mg/dl (6-23) 11/03/24 Creatinine 0.78 mg/dl (0.6-1.2) 11/03/24 BUN/Creatinine Ratio 20.5 (10-20) H 11/03/24 Glucose Level 98 mg/dl (70-99(Fasting)) 11/03/24 Ca 9.3 mg/dl (8.6-10.3) 11/03/24 Total Bilirubin 0.3 mg/dl (0.2-1.0) 11/03/24 AST/SGOT 20 U/L (13-39) 11/03/24 ALT/SGPT 22 U/L (7-52) 11/03/24 Alkaline Phosphatase 89 U/L (34-104) 11/03/24 Total Protein 6.9 gm/dl (6.0-8.3) 11/03/24 Albumin 3.9 gm/dl (3.4-5.0) 11/03/24 Globulin 3.0 gm/dl (2.5-4.0) 11/03/24 Albumin/Globulin Ratio 1.3 (0.9-2) 11/03/24 Procalcitonin 0.02 ng/ml (0-0.5) 11/03/24 PTT 30 Seconds (21-31) 11/03/24 INR 1.0 (0.9-1.1) 11/03/24 Adenovirus (PCR) Not Detected (NotDetected) 11/03/24 B. parapertussis DNA (PCR) Not Detected (NotDetected) 10/16 B. pertussis DNA (PCR) Not Detected (NotDetected) 11/03/24 C. pneumoniae DNA (PCR) Not Detected (NotDetected) 5 Coronavirus Type OC43 (PCR) Not Detected (NotDetected) Coronavirus Type HKU1 (PCR) Not Detected (NotDetected) Coronavirus Type 229E (PCR) Not Detected (NotDetected) COVID-19 PCR DETECTED (NotDetected) A 11/03/24 Coronavirus Type NL63 (PCR) Not Detected (NotDetected) Human Metapneumovirus (PCR) Not Detected (NotDetected) Influenza Virus Type A (PCR) Not Detected (NotDetected) Influenza Virus Type B (PCR) Not Detected (NotDetected) M. pneumoniae (PCR) Not Detected (NotDetected) 11/03/24 Parainfluenza Type 1 (PCR) Not Detected (NotDetected) 10/16 Parainfluenza Type 2 (PCR) Not Detected (NotDetected) 10/16 Parainfluenza Type 3 (PCR) Not Detected (NotDetected) 10/16 Parainfluenza Type 4 (PCR) Not Detected (NotDetected) 10/16 RSV (PCR) Not Detected (NotDetected) 11/03/24 Enterovirus/Rhinovirus (PCR) Not Detected (NotDetected) Chest X-Ray 11/03/24 Code Status & VTE Plan Code Status FULL CODE VTE Prophylaxis Plan VTE Prophylaxis will be ordered: Yes
--- NOTE | 2024-11-03 18:30 | XRay Report ---
EXAM: Portable AP chest radiograph TECHNIQUE: AP portable radiograph of the chest was obtained. INDICATION: Cough Comparison: Chest radiograph August 13, 2023 FINDINGS: LINES and TUBES: None CARDIOVASCULAR: Cardiac silhouette is stably mildly enlarged in size. LUNGS/PLEURA: No focal consolidation identified. Mild peribronchial cuffing that may be seen with bronchiolitis and/or viral pneumonia. No significant pleural fluid. No discernible pneumothorax. OSSEOUS/OTHER: No displaced acute osseous process identified. IMPRESSION: No focal consolidation identified. Mild peribronchial cuffing that may be seen with bronchiolitis and/or viral pneumonia. Electronically signed by Saturnino Ortega 11-03-2024 6:30 PM
[2024-11-03] MEDS ORDERED: GLUCAGON FOR INJ 1 MG VIAL SQ PRN (19:09)
[2024-11-03] MEDS ORDERED: GLUCOSE 40% GEL 15 GM TUBE PO PRN (19:09)
[2024-11-03] MEDS ORDERED: GLUCOSE 10 TAB/TUBE PO PRN (19:09)
[2024-11-03] MEDS ORDERED: DEXTROSE 50% 50 ML SYRINGE IV PRN (19:09)
[2024-11-03] MEDS ORDERED: POLYETHYLENE (MIRALAX) 17 GM PACK PO PRN (19:09)
[2024-11-03] MEDS ORDERED: ONDANSETRON INJ 2 MG/ML 2 ML VIAL IV PRN (19:09)
[2024-11-03] MEDS ORDERED: CARBOHYDRATES FOR HYPOGLYCEMIA PO PRN (19:09)
[2024-11-03] MEDS: SODIUM CHLORIDE 0.9% 500 ML IV SCH (20:05)
[2024-11-03] MEDS: INSULIN ASPART PER UNIT CHARGE SC SCH (20:46)
[2024-11-03] MEDS: FLUoxetine HCL 20 MG CAP PO SCH (20:47)
[2024-11-03] MEDS: MAGNESIUM OXIDE 400 MG TAB PO SCH (20:47)
[2024-11-03] MEDS: ENOXAPARIN INJ 40 MG/0.4 ML SYR SQ SCH (20:48)
[2024-11-03] MEDS: SIMVASTATIN 10 MG TAB PO SCH (20:48)
[2024-11-03 21:31] LABS: Amphetamines+Metham, Urine Neg (Neg); Barbiturates, Urine Neg (Neg); Benzodiazepine, Urine Neg (Neg); Cocaine, Urine Neg (Neg); Fentanyl, Urine Neg (Neg); MDMA (Ecstacy), Urine Neg (Neg); Marijuana, Urine Neg (Neg); Methadone, Urine Neg (Neg); Opiate, Urine Neg (Neg); Phencyclidine, Urine Neg (Neg)
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
--- OUTSIDE RECORDS SUMMARY | 2024-11-03 23:21 | External Medical Summary ---
Author Name Unknown Address Unknown Organization [facility] [address] [place] [address] Laboratory Report Ordering Provider Test Date Status SARABJIT SIDDIQUI 11/02/2024 05:34:00 Final Observation Date Value Abnormality Reference (Units ) Status SYNC LEUKOCYTES IN BLOOD BY AUTOMATED COUNT 11/02/2024 05:34:00 12.89 Above high normal 4.00-10.80 (K/uL) Final Segs 11/02/2024 05:34:00 67.3 40.0-75.0 (%) Final Lymphs % 11/02/2024 05:34:00 18.9 18.0-42.0 (%) Final Monos 11/02/2024 05:34:00 11.3 Above high normal 1.0-11.0 (%) Final Eosinophils 11/02/2024 05:34:00 2.3 0.0-6.0 (%) Final Basos 11/02/2024 05:34:00 0.2 0.0-2.0 (%) Final Absolute Segs 11/02/2024 05:34:00 8.67 Above high normal 1.80-7.70 (K/uL) Final Lymphs, absolute 11/02/2024 05:34:00 2.43 1.00-4.80 (K/ul) Final Monos, Abs 11/02/2024 05:34:00 1.46 Above high normal 0.00-1.10 (K/uL) Final Eos, Abs 11/02/2024 05:34:00 0.30 0.00-0.70 (K/uL) Final Basos, Abs 11/02/2024 05:34:00 0.03 0.00-0.20 (K/uL) Final Performing Location [facility]ORY [facility] [address] [place] [id number]
--- OUTSIDE RECORDS SUMMARY | 2024-11-03 23:21 | External Medical Summary ---
Author Name Unknown Address Unknown Organization [facility] [facility] [address] [place] [address] Laboratory Report Ordering Provider Test Date Status SARABJIT SIDDIQUI 11/02/2024 05:34:00 Final Observation Date Value Abnormality Reference (Units ) Status WBC, Total 11/02/2024 05:34:00 12.89 Above high normal 4 .00-10.80 (K/uL) Final RBC 11/02/2024 05:34:00 4.66 3.85-5.15 (M/uL) Final Hemoglobin 11/02/2024 05:34:00 13.2 12.0-15.3 (g/dL) Final HCT 11/02/2024 05:34:00 40.8 36.0-45.2 (%) Final MCV 11/02/2024 05:34:00 87.6 81.5-97.5 (fL) Final MCH 11/02/2024 05:34:00 28.3 27.0-34.0 (pg) Final MCHC 11/02/2024 05:34:00 32.4 32.0-36.0 (g/dL) Final RDW 11/02/2024 05:34:00 16.0 11.5-15.5 (%) Final Platelets 11/02/2024 05:34:00 450 Above high normal 14 0-400 (K/uL) Final MPV 11/02/2024 05:34:00 10.5 6.6-11.1 ( fL) Final Performing Location LAB[facility]ATORY [place] [address] [place] [address]
--- OUTSIDE RECORDS SUMMARY | 2024-11-03 23:21 | External Medical Summary ---
Author Name Unknown Address Unknown Organization [facility] [place] [facility] [address] [place] [address] Laboratory Report Ordering Provider Test Date Status SARABJIT SIDDIQUI 11/02/2024 06:56:26 Final Observation Date Value Abnormality Reference (Units ) Status Color of Urine by Auto 11/02/2024 06:56:26 Yellow Light Yellow, Yellow, Dark Yellow Final Clarity, Urine 11/02/2024 06:56:26 Slightly Cloudy Abnormal Clear Final Glucose [Mass/volume] in Urine by Automated test strip 11/02/2024 06:56:26 Negative Negative (mg/dL) Final Bilirubin.total [Presence] in Urine by Automated test strip 11/02/2024 06:56:26 Negative Negative Final Ketones [Mass/volume] in Urine by Automated test strip 11/02/2024 06:56:26 Negative Negative (mg/dL) Final Specific gravity, Urine 11/02/2024 06:56:26 1.015 1.003-1.030 Final Hemoglobin [Presence] in Urine by Automated test strip 11/02/2024 06:56:26 Negative Negative Final pH, Urine 11/02/2024 06:56:26 6.5 5.0-7.5 (Units) Final Protein [Mass/volume] in Urine by Automated test strip 11/02/2024 06:56:26 Negative Negative (mg/dL) Final Urobilinogen [Mass/volume] in Urine by Automated test strip 11/02/2024 06:56:26 0.2 0.2, 1.0 (mg/dL) Final Nitrite [Presence] in Urine by Automated test strip 11/02/2024 06:56:26 Negative Negative Final Leukocyte esterase [Presence] in Urine by Automated test strip 11/02/2024 06:56:26 Negative Negative Final RBC, Urine 11/02/2024 06:56:26 0-2 0-2 (/HPF) Final WBC, Urine 11/02/2024 06:56:26 0-2 0-2 (/HPF) Final Bacteria [#/area] in Urine sediment by Microscopy high power field 11/02/2024 06:56:26 26-50 Abnormal 0-25 (/HPF) Final CULTURE, URINE - [facility] 11/02/2024 06:56:26 Final Quantitative urine culture t o be performed [facility] [address] [place] [address]
--- OUTSIDE RECORDS SUMMARY | 2024-11-03 23:21 | External Medical Summary ---
Author Name Unknown Address Unknown Organization [facility] [place] [address] [place] [id number] Laboratory Report Ordering Provider Test Date Status SARABJIT SIDDIQUI 11/02/2024 05:34:00 Final Observation Date Value Abnormality Reference (Units ) Status BUN 11/02/2024 05:34:00 14 6-20 (mg/dL) Final Creatinine 11/02/2024 05:34:00 0.8 0.5-1.0 (mg/dL) Final Glomerular filtration rate/1.73 sq M.predicted [Volume Rate/Area] in Serum, Plasma or Blood by Creatinine-based formula (CKD-EPI) 11/02/2024 05:34:00 80 >=60 (mL/min) Final eGFR is calculated based on the CKD-EPI 2020 equation. Sodium 11/02/2024 05:34:00 136 135-146 (m mol/L) Final Potassium 11/02/2024 05:34:00 4.5 3.5-5.1 (m mol/L) Final Cl 11/02/2024 05:34:00 96 Below low normal 98- 107 (mmol/L) Final CO2 11/02/2024 05:34:00 30 22-32 (mmo l/L) Final Anion gap 11/02/2024 05:34:00 10 7-15 (mmol /L) Final Glucose 11/02/2024 05:34:00 122 Above high normal 70 -120 (mg/dL) Final Albumin 11/02/2024 05:34:00 4.3 3.8-5.0 (g /dL) Final AST (Aspartate aminotransferase) 11/02/2024 05:34:00 24 10-35 (U/L) Fin al Alk Phos 11/02/2024 05:34:00 120 35-130 (U/ L) Final Bilirubin, Total 11/02/2024 05:34:00 0.4 <=1 .2 (mg/dL) Final Calcium 11/02/2024 05:34:00 9.9 8.4-10.2 ( mg/dL) Final Protein 11/02/2024 05:34:00 7.2 6.0-8.3 (g /dL) Final ALT (Alanine aminotransferase) 11/02/2024 05:34:00 28 10-35 (U/L) Evens kiser Performing Location LAB[facility]ORY [place] [address] [facility] [address]
--- OUTSIDE RECORDS SUMMARY | 2024-11-03 23:21 | External Medical Summary | Continuity of Care Document ---
Author Name Unknown Organization [id number] Address [address] [place] [address] [phone] Care Team Providers Care Business Objects Report Developer Name Role Phone Oswaldo Saxena Primary Care Physician [phone] Encounter [facility] [id number] Date(s): 10/26/24 - 10/26/24 [facility] [address] [facility] 112[address] [facility] [address] [place] [address] Encounter Diagnosis Fracture of distal end of right fibula(Discharge Diagnosis) - 10/26/24 Discharge Disposition: Home or Self Care Attending Physician: AURELIA Yin Dennis Encounter Type: Clinic Allergies, Adverse Reactions, Alerts Substance Criticality Severity Reaction Reaction Severity Status dextromethorphan Unable to assess criticality Moderate unknown Active glyBURIDE Unable to assess criticality Moderate unknown Active pseudoephedrine Unable to assess criticality Moderate unknown Active tetanus toxoid Unable to assess criticality Moderate Active doxylamine Unable to assess criticality Moderate unknown Active ethanol Unable to assess criticality Moderate unknown Active aspartame Unable to assess criticality Moderate unknown Active sucralose (Splenda) Unable to assess criticality Mild unknown Active Assessment and Plan Extracted from: Title:Clinical Document Author:AURELIA Yin Denn is Date:10/26/24 OUTPATIENT NOTE Name: WADE BAUM Patient Number:[id number] : 1955 Date of Service: 10/26/2024 HPI: This 69-year-old female is a new patient to our clinic today for follow-up after having a cast placed on her right lower extremity for distal fibula fracture that was nondisplaced and recommended to be treated nonsurgically. Patient has been at [facility] for rehab. She states she really does not have any pain in the right lower extremity. She states that the cast is comfortable but heavy. Patient states she is able to ambulate only using her left lower extremity. She states therapy is also working with her multiple times a week to strengthen her right lower extremity. When asked if she is taking anything to thin her blood she states no. Patient also denies any numbness or tingling in her right lower extremity. She states she has a longstanding history of severe arthritis in the right knee which may have caused her fall. Physical examination: Right lower extremity; cast is clean dry and intact left in place. I was able to easily slide 2 fingers under the cast distally and proximally. Patient has some mild edema in the base of her toes. She is able to wiggle them in place sensation to touch over the pads of all digits. Knee range of motion is from 0 degrees of extension to 110 degrees of flexion. She is neurovascularly intact in the right lower extremity. Radiographic imaging: X-rays of the patient's right lower extremity with cast in place taken our clinic today were reviewed and compared to those done at the emergency department. There appears to be some interval healing and no further displacement of the fracture involving the right distal fibula. Impression: 2-week status post cast placement for nonsurgical right distal fibula fracture Plan: Patient will continue nonweightbearing with cast in place for the next 4 weeks with the assistance of a walker. I recommended that she begin using aspirin 81 mg daily for DVT prophylaxis. She can continue managing her brain if she has any with [id number] extra-strength Tylenol or ibuprofen. I recommended elevation help with swelling. Will plan on her coming back to our clinic in 4 weeks, remove the cast and obtain her next set of x-rays. Patient and her verbalized understanding of all information provided. Thanks for the care that they have received. If questions or concerns arise prior to the follow-up, they will contact clinic. Patient will continue physical therapy. This chart was completed utilizing [employer] voice recognition software. Grammatical errors, random word insertions, pronoun errors, and in complete sentences are an occasional consequence of the system. Any questions or concerns about the content, text, or information contained within the body of this dictation should be addressed directly to the physician for clarification. Medications Dulcolax Laxative (vegetable base) 10 mg rectal suppository Start: 10/26/24 10:33:00 AM EST Start Date: 10/26/24 Status: Ordered Repeat number: 1 FLUoxetine Start: 10/26/24 10:33:00 AM EST Start Date: 10/26/24 Status: Ordered Repeat number: 1 folic acid Start: 10/26/24 10:33:00 AM EST Start Date: 10/26/24 Status: Ordered Repeat number: 1 hydroCHLOROthiazide 12.5 mg oral tablet Take 1 Tablet by mouth in the morning. Start Date: 10/26/24 Status: Ordered Repeat number: 1 levothyroxine Start: 10/26/24 10:34:00 AM EST Start Date: 10/26/24 Status: Ordered Repeat number: 1 lisinopril 5 mg oral tablet Start: 10/26/24 10:32:00 AM EST, 1 tab, PO, Daily Start Date: 10/26/24 Status: Ordered Repeat number: 1 magnesium oxide 200 mg oral tablet Start: 10/26/24 10:35:00 AM EST Start Date: 10/26/24 Status: Ordered Repeat number: 1 melatonin Start: 10/26/24 10:35:00 AM EST Start Date: 10/26/24 Status: Ordered Repeat number: 1 Milk of Magnesia Start: 10/26/24 10:35:00 AM EST Start Date: 10/26/24 Status: Ordered Repeat number: 1 NovoLOG FlexPen 100 units/mL injectable solution inject up to 75 unit subcutaneously daily; Inject before each meal using your pre meal sliding scale for Novolog Start Date: 10/26/24 Status: Ordered Repeat number: 1 oxyCODONE Start: 10/26/24 10:35:00 AM EST, simvast, Refills: 0 Start Date: 10/26/24 Status: Ordered Repeat number: 1 simvastatin Start: 10/26/24 10:36:00 AM EST, 10 mg = Start Date: 10/26/24 Status: Ordered Repeat number: 1 Toujeo Max SoloStar 300 units/mL subcutaneous solution Start: 10/26/24 10:32:00 AM EST Start Date: 10/26/24 Status: Ordered Repeat number: 1 Mental Status 10/26/24 Barriers to Learning one year None evide nt Mandatory Health Literacy Documentation Yes Health Literacy Communication Barriers N ever Primary Language Namibian Problem List No Chronic Problems Diagnosis Diagnosis Type Effective Dates Health Status Cl inical Service Informant Fracture of distal end of right fibula Discharge Diagnosis 10/26/24 Social History Social History Type Response Smoking Status Never smoked cigaret ria Sex Female Sex Representation Female (finding) Outpatient Note * AURELIA Yni, Jerald: PERFORM Event Display: .Outpt Note Authored Date: [id number] OUTPATIENT NOTE Name: WADE BAUM Patient Number:[id number] : 1955 Date of Service: 10/26/2024 HPI: This 69-year-old female is a new patient to our clinic today for follow-up after having a castplaced on her right lower extremity for distal fibula fracture that was nondisplaced and recommended to be treated nonsurgically. Patient has been at [facility] for rehab. She states she really does not have any pain in the right lower extremity. She states that the cast is comfortable but heavy. Patient states she is able to ambulate only using her left lower extremity. She states therapy is also working with her multiple times a week to strengthen her right lower extremity. When asked ifshe is taking anything to thin her blood she states no. Patient also denies any numbness or tingling in her right lower extremity. She states she has a longstanding history of severe arthritis in theright knee which may have caused her fall. Physical examination: Right lower extremity; cast is clean dry and intact left in place. I was ableto easily slide 2 fingers under the cast distally and proximally. Patient has some mild edema in the base of her toes. She is able to wiggle them in place sensation to touch over the pads of all digits. Knee range of motion is from 0 degrees of extension to 110 degrees of flexion. She is neurovascularly intact in the right lower extremity. Radiographic imaging: X-rays of the patient's right lower extremity with cast in place taken our clinic today were reviewed and compared to those done at the emergency department. There appears to besome interval healing and no further displacement of the fracture involving the right distal fibula. Impression: 2-week status post cast placement for nonsurgical right distal fibula fracture Plan: Patient will continue nonweightbearing with cast in place for the next 4 weeks with the assistance of a walker. I recommended that she begin using aspirin 81 mg daily for DVT prophylaxis. She can continue managing her brain if she has any with [id number] extra-strength Tylenol or ibuprofen. I recommended elevation help with swelling. Will plan on her coming back to our clinic in 4 weeks, remove the cast and obtain her next set of x-rays. Patient and her verbalized understanding of all information provided. Thanks for the care that they have received. If questions or concerns arise prior to the follow-up, they will contact clinic. Patient will continue physical therapy. This chart was completed utilizing [employer] voice recognition software. Grammatical errors,random word insertions, pronoun errors, and in complete sentences are an occasional consequence of the system. Any questions or concerns about the content, text, or information contained within the body of this dictation should be addressed directly to the physician for clarification. Electronic Signature on File Electronically Reviewed/Signed by: Jerald Yin PA-C Author Signature Dt/Tm:10/26/2024 03:51 PM Division of Sports Medicine Electronically Reviewed/Signed by: Oswaldo Oleary MD Cosigner Signature Dt/Tm: 10/27/2024 02:18PM Division of Sports Medicine DC Patient Care team information Care Team Personnel Name: MD Saxena Paul R Position: Referring DIRECT Member Role: Primary Care Provider Address: [address] Telecom: [phone] Care Team Related Persons Name: MAURICE CAIN Name: NAVI BAUM Insurance Providers Guarantor name: WADE BAUM Health Plan Information #: 1 Payer: AET[employer] Member Number: [id number] Policy Number: NA Group Number: [id number] Health Plan Information #: 2 Payer: MEDICARE Member Number: NA Policy Number: NA Group Number: NA Health Plan Information #: 3 Payer: AET[employer] Member Number: [id number] Policy Number: NA Group Number: NA
--- OUTSIDE RECORDS SUMMARY | 2024-11-03 23:21 | External Medical Summary | Summary of Care ---
Author Name Unknown Organization [facility] Address [address] [facility] [place] [address] Phone [phone] Care Team Providers Care Rail Director Name Role Phone Oswaldo Saxena MD Primary Care Provider + Reason for Visit * Reason Onset Date Comments Skilled Visit 11/02/2024 Encounter Details Date Type Department Care Team (Late st Contact Info) Description 11/02/2024 8:30 AM EST Longterm Visit [facility], [address] [place] [address] Aria Conklin PA-C [address] [place] [address] [place] [address] Generalized weakness* Allergies Active Allergy Reactions Criticality Noted Date Comments Amoxicillin 12/22/2016 Dextromethorphan High 05/06/2022 Other reaction(s): Difficulty Breathing Glyburide 12/22/2016 Doxylamine High 05/06/2022 Other reaction(s): Difficulty Breathing Doxylamine-Dm 02/05/2024 Ethanol High 05/06/2022 Other reaction(s): Difficulty Breathing Pseudoephedrine High 05/06/2022 Other reaction(s): Difficulty Breathing Tuberculin Ppd 12/22/2016 documented as of this encounter (statuses as of 11/03/2024) Medications Glucose Blood (NKT TherapeuticsUCH ULTRA BLUE) STRP Use as directed 4 [...] as of this encounter (statuses as of 11/03/2024) Active Problems Problem Noted Date Diagnosed Date [...] EGD +esophagitis. Stomach WNL. 2013 colonoscopy in [place]--request recs Knee pain, bilateral 11/05/2013 Dermatitis 11/05/2013 HTN, GOAL BELOW 140/80 05/03/2012 Overview: Per HTN Protocol #27. 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 Not on file Not on file Not on file documented as of this encounter Last Filed Vital Signs Vital Sign Reading Time Taken Comments Blood Pressure 148/74 11/02/2024 5:38 PM EST Pulse 98 11/02/2024 5:38 PM EST Temperature 36.8 C (98.2 F) 11/02/2024 5:38 PM ES T Respiratory Rate 17 11/02/2024 5:38 PM EST Oxygen Saturation 96% 11/02/2024 5:38 PM EST room air Inhaled Oxygen Concentration - - Weight - - Height - - Body Mass Index - - documented in this encounter Plan of Treatment Upcoming Encounters Date Type Department Care Team (Late st Contact Info) Description 11/30/2024 2:40 PM EDT Office Visit [facility] [address] [place] [address] Oswaldo Saxena MD [address] [facility] [place] [address] 03/24/2025 2:00 PM EDT Office Visit [facility] [address] [place] [address] Oswaldo Saxena MD 132 [facility] [place] [address] 03/31/2025 2:00 PM EDT Nurse Only Ancillary [facility] [address] [place] [address] Nurse Tolu [facility] 132 [facility] [place] [address] 11/17/2025 10:00 AM EST Office Visit Neurology [facility] [place] [address] [place] [address] Jossy Heart, DO [address] [facility] [address] Scheduled Procedures Name Priority Associated Diagnoses Date/Ti [...] PCV) 07/19/2023 07/19/2022, 01/24/2021, 06/14/2010 COVID-19 Vaccine (4 - season) 2024 09/08/2023, 04/30/2021, 04/02/2021 Influenza Vaccine (FLU shot) (#1) 2024 06/24/2023, 07/19/2022, 08/27/2016, Additional history exists Albumin/Creatinine Ratio 08/31/2024 023, 08/26/2021, 02/27/2017, Additional history exists HbA1c 09/16/2024 03/16/2024, 07/0 11/2023 (Done elsewhere), 08/31/2023, Additional history exists Mammogram 10/27/2024 10/27/2023, 01/12, 01/05/2017, Additional history exists Diabetic Foot Exam 03/16/2025 03/16/2024 (D one elsewhere), 02/06/2022, 01/24/2021, Additional history exists TSH 08/15/2025 08/15/2024, 07/0 11/2023, 08/31/2023, Additional history exists Diabetic Eye Exam 09/16/2025 09/16/2024 (Do ne elsewhere), 09/16/2024, 03/03/2023 (Done elsewhere), Additional history exists GFR 11/02/2025 11/02/2024, 02/0 11/2024, 08/15/2024, Additional history exists DXA Scan 02/19/2028 02/18/2021 Lipid Panel 08/15/2029 08/15/2024, 07/0 11/2023, 08/31/2023, Additional history exists Colonoscopy 04/23/2033 04/23/2023, 04/23/2023 Colorectal Cancer Screening 04/23/2033 HPV (Gardasil) Vaccine Aged Out No lo nger eligible based on patient's age to complete this topic Hepatitis B Vaccine Aged Out No longe r eligible based on patient's age to complete this topic MENINGOCOCCAL (MENACTRA/MENVEO) Aged Out No longer eligible based on patient's age to complete this topic Meningitis B Vaccine (Bexsero/Trumemba) Aged Out No longer eligible based on patient's age to complete this topic documented as of this encounter Medical Devices Not on filedocumented as of this encounter Visit Diagnoses Diagnosis Generalized weakness- Primary Other malaise and fatigue documented in this encounter Care Teams Rail Director Relationship Specialty Start Date End Date Oswaldo Saxena MD [address] [place] [address] PCP - General Family Medicine 11/27/16 documented as of this encounter
--- OUTSIDE RECORDS SUMMARY | 2024-11-03 23:21 | External Medical Summary | Summary of Care ---
Author Name Unknown Organization [facility] Address [address] [place] [address] Phone [phone] Care Team Providers Care Spot Facer Name Role Phone Oswaldo Saxena MD Primary Care Provider + Reason for Visit * Reason Comments Outpatient Testing Encounter Details Date Type Department Care Team (Late st Contact Info) Description 11/02/2024 7:00 AM EST Laboratory Lab Mobile Phlebotomy [facility] [address] [facility] [place] [address] [facility] [address] [place], [place] [id number] Urinary frequency*; Generalized weakness Allergies Active Allergy Reactions Criticality Noted Date Comments Amoxicillin 12/22/2016 Dextromethorphan High 05/06/2022 Other reaction(s): Difficulty Breathing Glyburide 12/22/2016 Doxylamine High 05/06/2022 Other reaction(s): Difficulty Breathing Doxylamine-Dm 02/05/2024 Ethanol High 05/06/2022 Other reaction(s): Difficulty Breathing Pseudoephedrine High 05/06/2022 Other reaction(s): Difficulty Breathing Tuberculin Ppd 12/22/2016 documented as of this encounter (statuses as of 11/02/2024) Medications Glucose Blood (ONETOUCH ULTRA BLUE) STRP Use as directed 4 [...] as of this encounter (statuses as of 11/02/2024) Active Problems Problem Noted Date Diagnosed Date [...] Overview (05/04/2023): 05/06 EGD +esophagitis. Stomach WNL. 2014 colonoscopy in [place]--request recs Knee pain, bilateral 11/05/2013 Dermatitis 11/05/2013 HTN, GOAL BELOW 140/80 05/03/2012 Overview: Per HTN Protocol #27. 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 Not on file Not on file documented as of this encounter Plan of Treatment Upcoming Encounters Date Type Department Care Team (Late st Contact Info) Description 11/30/2024 2:40 PM EDT Office Visit [facility] [address] [place] [address] Oswaldo Saxena MD [address] [place] [address] 03/24/2025 2:00 PM EDT Office Visit [facility] [address] [place] [address] Oswaldo Saxena MD [address] [facility] [place] [address] 03/31/2025 2:00 PM EDT Nurse Only Ancillary [facility] [address] [facility] [place] [address] [facility], Nurse [facility] [place] [address] 11/17/2025 10:00 AM EST Office Visit Neurology [facility] [address] [facility] [place] [address] Jossy Heart, DO [address] [place], [place] [id number] Scheduled Orders Name Type Priority Associated Diagnoses Orde r Schedule CBC Lab Routine Generalized weakness Ordered: 11/02/2024 DIFFERENTIAL, AUTOMATED Lab Routine Generalized weakness Ordered: 11/02/2024 URINALYSIS, REFLEX TO CULTURE (NOT FOR NEUTROPENIC PATIENTS) Lab Routine Urinary frequency Expected: 11/02/2024, Expires: 11/02/2025 URINALYSIS, REFLEX TO CULTURE (CUP ONLY) Lab Routine Urinary frequency Ordered: 11/02/2024 URINALYSIS, REFLEX TO CULTURE Lab Routine Urinary frequency Ordered: 11/02/2024 Scheduled Procedures Name Priority Associated Diagnoses Date/Ti [...] elsewhere), Additional history exists GFR 10/17/2025 10/17/2024, 120 10/2023, 03/16/2024, Additional history exists DXA Scan [...] as of this encounter Visit Diagnoses Diagnosis Urinary frequency- Primary Generalized weakness Other malaise and fatigue documented in this encounter Care Teams Spot Facer Relationship Specialty Start Date End Date Oswaldo Saxena MD [address] [place] [address] PCP - General Family Medicine 11/27/16 documented as of this encounter
--- OUTSIDE RECORDS SUMMARY | 2024-11-03 23:21 | External Medical Summary | Summary of Care ---
Author Name Unknown Organization [facility] Address [address] [facility] [place] [address] Phone [phone] Care Team Providers Care Tubular Riveter Name Role Phone Oswaldo Saxena MD Primary Care Provider + Reason for Visit * Reason Onset Date Comments Skilled Visit 11/01/2024 Encounter Details Date Type Department Care Team (Late st Contact Info) Description 11/01/2024 1:30 PM [facility] Jail Visit [facility], [address] [place] [address] Aria Conklin PA-C [address] [place] [address] [place] [address] Generalized weakness*; Urinary frequency; Urinary urgency; Acute cough; Acute nonintractable headache, unspecified headache type Allergies Active Allergy Reactions Criticality Noted Date Comments Amoxicillin 12/22/2016 Dextromethorphan High 05/06/2022 Other reaction(s): Difficulty Breathing Glyburide 12/22/2016 Doxylamine High 05/06/2022 Other reaction(s): Difficulty Breathing Doxylamine-Dm 02/05/2024 Ethanol High 05/06/2022 Other reaction(s): Difficulty Breathing Pseudoephedrine High 05/06/2022 Other reaction(s): Difficulty Breathing Tuberculin Ppd 12/22/2016 documented as of this encounter (statuses as of 11/02/2024) Medications Glucose Blood (DeYapa BLUE) STRP Use as directed 4 times [...] EGD +esophagitis. Stomach WNL. 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 Not on file Not on file documented as of this encounter Last Filed Vital Signs Vital Sign Reading Time Taken Comments Blood Pressure 145/57 11/01/2024 4:59 PM EST Pulse 71 11/01/2024 4:59 PM EST Temperature 36.6 C (97.8 F) 11/01/2024 4:59 PM ES T Respiratory Rate 18 11/01/2024 4:59 PM EST Oxygen Saturation 93% 11/01/2024 4:59 PM EST room air Inhaled Oxygen Concentration - - Weight - - Height - - Body Mass Index - - documented in this encounter Plan of Treatment Upcoming Encounters Date Type Department Care Team (Late st Contact Info) Description 11/30/2024 2:40 PM EDT Office Visit [facility] [address] [place] [address] Oswaldo Saxena MD [address] [place] [address] 03/24/2025 2:00 PM EDT Office Visit [facility] [address] [place] [address] Oswaldo Saxena MD [address] [place] [address] 03/31/2025 2:00 PM EDT Nurse Only Ancillary [facility] [address] [place] [address] Nurse Tolu [facility] [address] [facility] [place] [address] 11/17/2025 10:00 AM EST Office Visit Neurology [facility] [address] [place] [address] Jossy Heart, DO [address] [facility] [place] [address] Scheduled Procedures Name Priority Associated Diagnoses Date/Ti [...] 07/19/2023 07/19/2022, 01/24/2021, 06/14/2010 COVID-19 Vaccine ( - season) 2024 09/08/2023, 04/30/2021, 04/02/2021 Influenza [...] elsewhere), Additional history exists GFR 10/17/2025 10/17/2024, 12/0 10/2023, 03/16/2024, Additional history exists DXA Scan [...] Generalized weakness- Primary Other malaise and fatigue Urinary frequency Urinary urgency Urgency of urination Acute cough Acute nonintractable headache, unspecified headache type documented in this encounter Care Teams Tubular Riveter Relationship Specialty Start Date End Date Oswaldo Saxena MD 132 [facility] [place] [address] PCP - General Family Medicine 11/27/16 documented as of this encounter
--- OUTSIDE RECORDS SUMMARY | 2024-11-03 23:21 | External Medical Summary | Summary of Care ---
Author Name Unknown Organization [facility] Address [address] [facility] [place] [address] Phone [phone] Care Team Providers Care Fuller Brush Worker Name Role Phone Oswaldo Saxena MD Primary Care Provider + Reason for Visit * Reason Onset Date Comments Skilled Visit 10/31/2024 Encounter Details Date Type Department Care Team (Late st Contact Info) Description 10/31/2024 8:45 AM EST Long Term Visit [facility], [address] [place] [address] Aria Conklin PA-C [address] [place] [address] [place] [address] Other closed fracture of distal end of right fibula with routine healing, subsequent encounter*; Type 1 diabetes mellitus with hemoglobin A1c goal of less than 8.0% (HCC) Allergies Active Allergy Reactions Criticality Noted Date Comments Amoxicillin 12/22/2016 Dextromethorphan High 05/06/2022 Other reaction(s): Difficulty Breathing Glyburide 12/22/2016 Doxylamine High 05/06/2022 Other reaction(s): Difficulty Breathing Doxylamine-Dm 02/05/2024 Ethanol High 05/06/2022 Other reaction(s): Difficulty Breathing Pseudoephedrine High 05/06/2022 Other reaction(s): Difficulty Breathing Tuberculin Ppd 12/22/2016 documented as of this encounter (statuses as of 11/01/2024) Medications Glucose Blood (Milk ULTRA BLUE) STRP Use as directed 4 [...] as of this encounter (statuses as of 11/01/2024) Active Problems Problem Noted Date Diagnosed Date [...] EGD +esophagitis. Stomach WNL. 2013 colonoscopy in [place]--request recs Knee pain, bilateral 11/05/2013 Dermatitis 11/05/2013 HTN, GOAL BELOW 140/80 05/03/2012 Overview: Per HTN Protocol #27. 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 Not on file Not on file Not on file documented as of this encounter Last Filed Vital Signs Vital Sign Reading Time Taken Comments Blood Pressure 142/68 10/31/2024 2:36 PM EST Pulse 70 10/31/2024 2:36 PM EST Temperature 36.5 C (97.7 F) 10/31/2024 2:36 PM ES T Respiratory Rate 17 10/31/2024 2:36 PM EST Oxygen Saturation 96% 10/31/2024 2:36 PM EST room air Inhaled Oxygen Concentration - - Weight - - Height - - Body Mass Index - - documented in this encounter Progress Notes * Aria Conklin PA-C - 10/31/2024 2:30 PM EST Name: Morris Mckeon Date of : 1955 This note pertains to care provided at [facility]. Please see facility record for original note. This note is not to be edited or addended in [employer]. Editing or addending needs to occur in the facility's medical record. Chief Complaint Patient presents with Skilled Visit TRANSITION EVENT: Type: Skilled visit Date: October 31 Code Status: Full Code SUBJECTIVE: Morris Mckeon is a 69 year old female HPI: short-term rehab pt recently hospitalized after a fall at home which resulted in right distal fibular fracture, is seen today in follow up. DM1 with no significant overnight lows over the past 2 days. She has had some headache yesterday and today, improved with tylenol/oxycodone. She reports this iscurrently mild and indicates discomfort over the frontal/sinus area. She admits to some sinus congestion, denies fever, chills, dizziness, sore throat, earache, cough, dyspnea, chest pain. 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 ([facility]) MDD (major depressive disorder), recurrent episode, moderate ([facility]) History of 2019 novel coronavirus disease (COVID-19) Bilateral sciatica Body mass index (BMI) of 45.0 to 49.9 in adult ([facility]) Vitamin D deficiency Chronic insomnia Mild dementia with mood disturbance ([facility]) Closed fracture of distal end of right fibula with routine healing Review of patient's allergies indicates: Allergen Reactions Dextromethorphan Other reaction(s): Difficulty Breathing Doxylamine Other reaction(s): Difficulty Breathing Ethanol Other reaction(s): Difficulty Breathing Pseudoephedrine Other reaction(s): Difficulty Breathing Amoxicillin Diabeta [Glyburide] Doxylamine-Dm Tuberculin Ppd Medications: Pt's current medication list is maintained at [facility] and was reviewed at this visit. Review of Systems: Per HPI OBJECTIVE: BP 142/68 | Pulse 70 | Temp 36.5 C (97.7 F) | Resp 17 | SpO2 96% Comment: room air General: alert and no distress, sitting in wheelchair Head: Normocephalic Eye Exam: extraocular movements intact, conjunctiva are pink and non-injected, sclera clear Nose: no mucosal erythema, no mucosal edema, no purulent discharge Oropharynx: lips, buccal mucosa, and tongue normal and mucous membranes are moist Heart: regular rate & rhythm Lungs: chest symmetric with normal AP diameter, no chest deformities noted, no chest wall tenderness, lungs clear to auscultation Abdomen: abdomen soft, non-tender, obese, normal bowel sounds, no masses or organomegaly, and no rebound or guarding Extremities: less than 2 second capillary refill, cast on RLE Neuro Exam: alert & oriented x 3 with fluent speech, moves all limbs spontaneously, generalizedweakness Skin: skin color, texture, turgor are normal ASSESSMENT/PLAN: [facility] (outside system) reviewed for vital signs, nursing notes, CODE STATUS, and most up to date medication list Discussed management with other clinician during the visit (facility FAMILY MEDICINE PHYSICIAN ASSISTANT) Other closed fracture of distal end of right fibula with routine healing, subsequent encounter (Primary) Continue PT and OT Pain control with tylenol Ortho follow up as planned NWB RLE Type 1 diabetes mellitus with hemoglobin A1c goal of less than 8.0% (HCC) Continue current insulin regimen Monitor for further symptoms related to headache/sinus congestion Follow up: 1-2 days and as needed 30 total minutes were spent in this visit. [...] Description 11/30/2024 2:40 PM EDT Office Visit [facility] [address] [place] [address] Oswaldo Saxena MD [address] [place] [id number] 03/24/2025 2:00 PM EDT Office Visit [facility] [address] [address] Oswaldo Saxena MD [address] [place] [address] 03/31/2025 2:00 PM EDT Nurse Only Ancillary [facility] [address] [address] Nurse Lawrence Motley [address] [place] [id number] 11/17/2025 10:00 AM EST Office Visit Neurology [facility] [address] [facility] [address] UnaGavinshawn Teresa, DO [address] [place] [address] Scheduled Procedures Name Priority Associated Diagnoses Date/Ti [...] 01/24/2021, Additional history exists TSH 08/15/2025 08/15/2024, 070 11/2023, 08/31/2023, Additional history exists Diabetic Eye Exam 09/16/2025 09/16/2024 (Do ne elsewhere), 09/16/2024, 03/03/2023 (Done elsewhere), Additional history exists GFR 10/17/2025 10/17/2024, 1210/2023, 03/16/2024, Additional history exists DXA Scan 02/19/2028 [...] as of this encounter Visit Diagnoses Diagnosis Other closed fracture of distal end of right fibula with routine healing, subsequent encounter- Primary Type 1 diabetes mellitus with hemoglobin A1c goal of less than 8.0% (HCC) documented in this encounter Care Teams Fuller Brush Worker Relationship Specialty Start Date End Date Oswaldo Saxena MD [address] [place] [id number] PCP - General Family Medicine 11/27/16 documented as of this encounter"
--- OUTSIDE RECORDS SUMMARY | 2024-11-03 23:21 | External Medical Summary ---
Author Name Unknown Address Unknown Organization [id number]:[facility] [place] [address] [place] [address] Laboratory Report Ordering Provider Test Date Status SARABJIT SIDDIQUI 11/02/2024 06:56:26 Preliminary Observation Date Value Abnormality Reference (Units) Status Bacteria identified in Specimen by Culture 11/02/2024 06:56:26 [id number]^GRAM NEGATIVE BACILLI Abnormal Preliminary 10,000 to 100,000 colonies/m L Gram negative bacilli
Test: Culture, Urine, Quantitative
Specimen Source: Urine, Clean Catch
Specimen Type: Urine
Specimen Date: 11/02/2024 [id number]
Result Date: 11/03/2024 1012
Result Status: Preliminary result
Abnormal: Yes
Resulting Lab: [facility] [place]
[address] [facility]
[place] [id number]

CULTURE

10,000 to 100,000 colonies/mL Gram negative bacilli (Abnormal)

null Performing Location [facility] [place] [facility] [address] [place] [id number]
--- NOTE | 2024-11-04 01:24 | Magnetic Resonance Report ---
EXAM: MR brain wo con CLINICAL HISTORY: rule out stroke, YANES TECHNIQUE: Multisequential and multiplanar images of the brain were submitted for review without contrast. 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 Multiple small foci of T2/FLAIR hyperintensity with DWI restriction seen in bilateral ludwig radiata. Generalized parenchymal atrophy is appreciated. Scattered foci of increased T2/FLAIR signal abnormality are identified within the bilateral periventricular and subcortical white matter, and are most commonly associated with chronic small vessel ischemic disease. No focal parenchymal lesions are seen. No intracranial hemorrhage, mass effect, midline shift, extra-axial collection, or hydrocephalus is identified. Ventricles, sulci, and basal cisterns are symmetric and normal in size and configuration. Diffusion-weighted sequences show no evidence of acute ischemic infarction. Midline structures including the pituitary gland, corpus callosum, pineal region, and brainstem are unremarkable. The craniovertebral junction is within normal limits. No calvarial abnormalities are identified. Mild mucosal thickening in bilateral maxillary and ethmoidal sinusitis. Right sided mastoiditis present. Left mastoid air cells are clear. Orbital structures are unremarkable. Appropriate flow voids are present in the visualized intracranial vessels. IMPRESSION: 1. Multiple small acute infarcts (lacunar infarcts) involving left posterior thalamus and in bilateral ludwig radiata. 2. Chronic small vessel ischemic disease. 3. Diffuse cerebral atrophy. Electronically signed by Collins Mcdonald 11-04-2024 01:24 AM
[2024-11-04] MEDS ORDERED: PHARMACIST DISCHARGE MED REC CONSULT PRN (01:45)
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
[2024-11-04] MEDS: LEVOTHYROXINE SODIUM 125 MCG TABLET PO SCH (06:26)
--- NOTE | 2024-11-04 07:04 | Communication Note ---
Date of Service: November 04, 2024 Made aware by RN of abnormal MRI result 1. Multiple small acute infarcts (lacunar infarcts) involving left posterior thalamus and in bilateral ludwig radiata. 2. Chronic small vessel ischemic disease. 3. Diffuse cerebral atrophy. Ap Acute CVA Change to full admission Neurology consult in a.m.
[2024-11-04] MEDS: FOLIC ACID 1 MG TAB PO SCH (08:12)
[2024-11-04] MEDS: ASPIRIN 81 MG ECTAB PO SCH (08:12)
[2024-11-04] MEDS: CHOLECALCIFEROL 25 MCG (1000 UNITS) TAB PO SCH (08:12)
[2024-11-04 08:37] LABS: Albumin Globulin Ratio 1.2 (0.9-2); Albumin Level 3.9 gm/dl (3.4-5.0); BUN Creatinine Ratio 16.3 (10-20); Bilirubin,Total 0.4 mg/dl (0.2-1.0); Calcium 9.3 mg/dl (8.6-10.3); Chol HDL Ratio 2.5 (0-5); Creatinine Clr Calc Pharmacy 72.9 ml/min; Globulin 3.2 gm/dl (2.5-4.0); Potassium 4.3 mmol/L (3.5-5.1); Total Protein 7.1 gm/dl (6.0-8.3)
[2024-11-04 08:43] LABS: Basophils # (auto) 0.07 K/uL (0.00-0.20); Basophils % (auto) 0.8 %; Eosinophils # (auto) 0.16 K/uL (0.00-0.50); Eosinophils % (auto) 1.8 %; Hematocrit (blood only) 39.7 % (37.0-47.0); Hemoglobin 13.1 g/dl (12.0-16.0); Immature Granulocytes # (auto) 0.04 K/uL (0.01-0.20); Immature Granulocytes % (auto) 0.4 %; Lymphocytes % (auto) 26.8 %; Mean Corpuscular Hemoglobin 28.2 pg (25.0-34.0); Mean Corpuscular Volume 85.6 fL (80.0-100.0); Mean Platelet Volume 9.6 fL (9.4-12.4); Monocytes # (auto) 1.63 K/uL (0.11-0.59); Monocytes % (auto) 18.2 %; Neutrophils # (auto) 4.66 K/uL (1.40-6.50); Platelet Count 396 K/uL (130-400); RDW Coefficient of Variation 15.8 % (11.5-14.5); RDW Standard Deviation 49.2 fL (36.4-46.3); Red Blood Count 4.64 M/uL (4.20-5.40); White Blood Count 8.96 K/ul (4.8-10.8)
[2024-11-04] MEDS ORDERED: lisinopril 5 MG TAB PO SCH (09:00)
[2024-11-04] MEDS: LANTUS PER UNIT CHARGE SQ SCH (09:48)
[2024-11-04] MEDS: CHOLESTYRAMINE LIGHT 4 GM PKT PO SCH (09:59)
[2024-11-04] MEDS ORDERED: PHARMACY GLYCEMIC MGMT CONSULT PRN (11:05)
[2024-11-04 11:37] LABS: Estimated Average Glucose 134 mg/dl; Hemoglobin A1C 6.3 % (4.5-5.6)
[2024-11-04] MEDS: LANTUS PER UNIT CHARGE SC SCH ×2 (13:16→20:42)
--- NOTE | 2024-11-04 14:58 | Pharmacy Report ---
Pharmacy Glycemic Short Note 2 - Date of Service November 04, 2024 - Glycemic Short BSG Results (Last 24 hours): 11/03/24 11/03/24 11/03/24 15:22 15:28 20:40 Glucose 98 POC Glucose 102 H 84 11/04/24 11/04/24 11/04/24 07:42 07:47 12:27 Glucose 107 H POC Glucose 113 H 196 H OUTPATIENT ANTIDIABETIC REGIMEN: * toujeo 82 units daily, novolog SSI ASSESSMENT: * 69 year old, type 1 diabetic admitted with AMS, hypoglycemia, CVA concerns. Pharmacy consulted for glycemic management. * Known to glycemic from prior admission last month. Per notes, BSGs in 40s at outside facility and concerns for frequent low blood sugars. Plan to reduce basal today 50-60% from outpatient dose for today. Diet started, minimal PO intake at breakfast - better at lunch. PLAN FOR INPATIENT GLYCEMIC CONTROL: * Hold outpatient oral diabetes medications * Basal insulin * Lantus 20 units x 1 * Lantus 15-20 units HS * Bolus insulin * NovoLog per scale ACHS or Q6hrs while NPO * Goal Range: Low 120 mg/dL - High 160 mg/dL * Correction Factor: 30 mg/dL/unit * Nutritional / Prandial insulin per carb ratio of 1 unit per 10 grams CHO consumed
--- NOTE | 2024-11-04 16:38 | Hospitalist Progress Note ---
Date of Service November 04, 2024 Assessment & Plan (1) Stroke-like symptom: (2) Hypoglycemia: Plan This is a 69 yr old F who has a significant PMH of HTN, HLD, T1DM insulin controlled, hypothyroidism, Morbidly obese, Gerd, Mild Dementia, Depression and insomnia who presents to ED 2/2 altered mental status. Of significant pt was hospitalized 126-30 after sustaining a fall and R distal fibular fx requiring casting. She was discharged to [facility] rehab. Pt presents with at bedside who does most of the talking. Concerns for LUE weakness and R facial droop. Head CT, Head/Neck CTA unremarkable. LKW ~ 1100, pt out of window for consideration for TPA. Pt with known hypoglycemia and evidence of recent a1c of 5.9. Feel sx very likely to be related to hypoglycemic event #Acute CVA, left thalamus, bilateral ludwig radiata #Altered Mental status - resolved pt alert and oriented to basics Headaches x 4 weeks will obtain MRI Brain - if negative no further stroke w/u indicated, if MRI + will need to adjust treatment plan Pt still appears to be lethargic and weak, may be in setting of Covid-19, obtain UDS PT/OT will reduce insulin to reduce liklihood of hypoglycemic episodes 11/04 Brain MRI: Positive acute CVA, left thalamus and bilateral ludwig radiata Echocardiogram: No ASD Telemetry: No A-fib or arrhythmias so far Has been on aspirin 81 mg p.o. daily x 1 week Add Plavix 75 mg p.o. daily Also already on simvastatin Neurology service consulted Check lipid panel in a.m. Permissive hypertension #Sars COV-2 relatively asymptomatic, not requiring o2 did discuss remdesivir with given pt high risk and it was decided for forego this treatment at this time Covid precautions ordered 11/04 Remains on room air Has some mild rhonchi, mildly tachypneic Chest x-ray no pneumonia Start Xopenex every 6 hours Continues to spirometry and flutter valve Will order Mucinex twice daily as well #T1DM A1C 5.22 sep 2024, feel pt is too tightly controlled given age and comorbidities will reduce insulin by 50% given suspected reduce intake in setting of covid Goal A1C for pt should be 7-8, could be correlating to pts sx as well as YANES over the last few weeks 11/04 Pharmacy glycemic control management consulted Check A1c #Hyponatremia - chronic Na 132, hold HCTZ will give gentle fluid x 500ml repeat bmp in a.m. 11/04 Sodium 134 HCTZ on hold #Mild Dementia -at baseline #R fibular fx follows [facility], NWB, cast in place, had outpt follow up and will follow up again in 4 weeks continue PT/OT DVT ppx: SQ Lovenox, will reduce ASA to once daily while on lovenox FULL CODE PCP: Hemanth Dispo: from Rehab Admission and Anticipated Discharge Date Admission Date: November 04, 2024 Subjective Follow-up for acute CVA, COVID-19 etc. Seen with patient's Cuco at the bedside Patient is stable, comfortable, not in distress, awake and alert States she feels okay overall, left upper extremity weakness improving No new neurologic symptoms Denies headache, dizziness, nausea Reports she is having some dyspnea, occasional cough, no chest pain No other new symptoms Review of Systems Review of Systems: all noted and negative except for above Physical Exam Physical Exam: General- oriented x 3, not in distress, speaks in sentences with no effort or accessory muscle use Eyes- anicteric Neck- no JVD Lungs- Mild scattered rhonchi bilaterally, no wheezing next Heart- normal rate, regular rhythm; no murmurs Abdomen- normal bowel sounds, nondistended, soft, nontender Extremities- no pretibial edema, no calf tenderness Neuro- alert, oriented x 3; no gross focal neurologic deficits Skin- warm & dry Results & Data Results & Data Vital Signs (Past 12 Hours) Vital Signs Temp Pulse Pulse Resp BP BP Pulse Ox 11/04/24 14:14 98 H 11/04/24 10:38 37.0 C 94 H 18 133/78 93 11/04/24 07:11 86 11/04/24 07:04 36.9 C 86 18 150/72 H 92 O2 Del Method 11/04/24 14:14 11/04/24 10:38 Room Air 11/04/24 07:11 11/04/24 07:04 Room Air all noted and reviewed including below
--- NOTE | 2024-11-04 16:57 | Neurology Consultation ---
Date of Consultation November 04, 2024 Assessment & Plan (1) Embolic stroke: Patient is presenting with altered mental status likely related to embolic strokes in the setting of COVID infection. The patient is currently on Lovenox 40 mg SQ twice daily in addition to aspirin and Plavix. Plan Recommend to discontinue Plavix continue on aspirin at the current dose of Lovenox. To avoid risk of hemorrhagic conversion. Continue to monitor telemetry rule out paroxysmal atrial fibrillation, the patient is considered high risk given body habitus. She will need a Zio patch upon discharge . Anticoagulation to be considered upon discharge for stroke prevention Telehealth Consultation Telehealth Information Telehealth Information: I performed this visit using a real-time telehealth connection between my location and the patients location ([facility]). After connecting through interactive tele-video, patient was identified by name and date of and/or wristband check.Patient (or authorized healthcare safety representative) was informed that this was a telemedicine visit and it was being conducted confidentially over secure lines. My office door was closed and no one else was present in the room with me.Patient (or authorized healthcare safety representative) provided consent to proceed with the visit, expressed an understanding of privacy and security of the telemedicine visit, and gave permission to have a hospital safety representative in the room in order to assist with the visit and to conduct portions of the visit, as needed. I informed the patient (or authorized healthcare safety representative) that I reviewed their record and presented the opportunity for them to ask any questions regarding the visit today. The patient agreed to participate. History of Present Illness Reason for Consultation: Ischemic strokes Requesting Physician: Shorty Ashford MD Attending Physician: Shorty Ashford MD History of Present Illness Madyson Louis is a 69-year-old female patient with PMH of IDDM, hypothyroidism, HTN, HLP,morbid obesity depression. She presented to the emergency room yesterday from a rehab facility, prior to previous admission right distal fibular fracture requiring casting) with altered mental status . Tested positive for COVID with concerns for hypoglycemic event. The patient was found to bilateral infarcts on MRI of the brain. Today she is described to be in a better mental status, with occasional slurring of her speech. She has mild left upper and lower extremity weakness. She is oriented to person and place but not to time. She reports headaches occasionally, her ex- is in the room reported most of the complaints Allergies Allergy/AdvReac Type Severity Reaction Status Date / Time dextromethorphan Allergy Severe nyquil -> Verified 11/03/24 16:09 Difficulty Breathing doxylamine Allergy Severe nyquil -> Verified 11/03/24 16:09 Difficulty Breathing pseudoephedrine Allergy Severe nyquil -> Verified 11/03/24 16:09 Difficulty Breathing glyburide Allergy Intermediate RASH - pt Verified 11/03/24 16:09 and denies tetanus toxoid, adsorbed Allergy Intermediate painful Verified 11/03/24 16:09 joints aspartame Allergy Incontinenc Verified 11/03/24 16:09 e phenylalanine Allergy Incontinenc Verified 10/13/24 13:13 e stevioside [From Stevia] Allergy Incontinenc Verified 11/03/24 16:09 e sucralose Allergy Incontinenc Verified 11/03/24 16:09 [From Splenda (sucralose)] e vasquez pepper AdvReac Gastrointestinal Verified 11/03/24 16:09 Upset black pepper AdvReac Gastrointestinal Verified 11/03/24 16:09 Upset Ethanol Allergy Severe nyquil -> Uncoded 11/03/24 16:09 Difficulty Breathing Home Medications Medication Instructions Recorded Confirmed Type blood-glucose meter (OneTouch #1 ea 03/20/22 08/15/24 Rx Ultra2 Meter kit) OneTouch Ultra Test (blood sugar #400 ea 10/17/22 08/15/24 Rx diagnostic) Dexcom G6 Staff Writer (blood-glucose #1 ea 02/13/23 08/15/24 Rx meter,continuous) Dexcom G6 Sensor (blood-glucose #9 ea 02/13/23 08/15/24 Rx sensor) Dexcom G6 Transmitter #1 ea 02/13/23 08/15/24 Rx (blood-glucose transmitter) fluoxetine 20 mg capsule 20 mg PO BID 05/19/23 11/03/24 History cholecalciferol (vitamin D3) 50 50 mcg PO QAM 06/18/23 11/03/24 History mcg (2,000 unit) tablet folic acid 1 mg tablet 1 mg PO QAM 06/18/23 11/03/24 History magnesium 200 mg tablet 200 mg PO HS 06/18/23 11/03/24 History melatonin 10 mg tablet 10 mg PO HS PRN Sleep 06/18/23 11/03/24 History pen needle, diabetic 32 gauge x 06/19/23 08/15/24 History 532" (BD Cristy 2nd Gen Pen Needle) cholestyramine (with sugar) 4 gram 4 ea PO QAM 10/09/24 11/03/24 History oral powder (Questran) hydrochlorothiazide 12.5 mg tablet 12.5 mg PO QAM 10/09/24 11/03/24 History insulin aspart U-100 100 unit/mL 10 unit subcut DAILY 10/09/24 11/03/24 History (3 mL) subcutaneous pen (Novolog FlexPen U-100 Insulin aspart) insulin glargine U-300 conc 300 82 unit subcut QAM 10/09/24 11/03/24 History unit/mL (3 mL) subcutaneous pen (Toujeo Max U-300 SoloStar) levothyroxine 125 mcg tablet 125 mcg PO DAILYBB 10/09/24 11/03/24 History lisinopril 5 mg tablet 5 mg PO QAM 10/09/24 11/03/24 History simvastatin 10 mg tablet 10 mg PO HS 10/09/24 11/03/24 History acetaminophen 325 mg tablet 650 mg PO Q4 PRN Pain 11/03/24 11/03/24 History acetaminophen 325 mg tablet 650 mg PO Q4 PRN TEMP=>100 11/03/24 11/03/24 History aspirin 81 mg tablet,delayed 81 mg PO AMHS 11/03/24 11/03/24 History release insulin aspart U-100 100 unit/mL 16 unit subcut QDD 11/03/24 11/03/24 History (3 mL) subcutaneous pen (Novolog FlexPen U-100 Insulin aspart) insulin aspart U-100 100 unit/mL 30 unit subcut QDB 11/03/24 11/03/24 History (3 mL) subcutaneous pen (Novolog FlexPen U-100 Insulin aspart) oxycodone-acetaminophen 5 mg-325 1 tab PO Q6 PRN PAIN 11/03/24 11/03/24 History mg tablet (Percocet) MODERATE-SEVERE Patient History Surgical History H/O: hysterectomy S/P excision of lipoma (06/26/23) Right Upper Extremity Lipoma Excision Times 4; Left Lower Extremity Lipoma Excision Times 1(Bilateral) - Louis Silva DO History of repair of rotator cuff bilateral H/O colonoscopy History of hysterectomy Non cancerous fibroid removal of 6 lbs History of cholecystectomy 1987 History of tonsillectomy Family History Grandmother (Maternal) Diabetes Mother Hypertension Heart disease Grandmother (Paternal) Diabetes Social History Smoking Status: Never smoker Second Hand Exposure: No; Do You Dip or Chew Tobacco: No; Hx Alcohol Use: No Hx Substance Use: No Preferred Language: Japanese Communication Ability: Effective Weight Analyst Required: No Beliefs That Will Affect Care: None marital status: Current Living Situation: Rehab How many Children do You have: 2 Feels Safe at Home: Yes Safety Concerns: Feels Safe At This Time Diet: diabetic during the past year weight has: remained stable Assistive Devices: None Results & Data Vital Signs (Past 12 Hours) Vital Signs Temp Pulse Pulse Resp BP BP Pulse Ox 11/04/24 14:14 98 H 11/04/24 10:38 37.0 C 94 H 18 133/78 93 11/04/24 07:11 86 11/04/24 07:04 36.9 C 86 18 150/72 H 92 O2 Del Method 11/04/24 14:14 11/04/24 10:38 Room Air 11/04/24 07:11 11/04/24 07:04 Room Air Laboratory Results Laboratory Results - last 24 hr 11/03/24 11/03/24 11/03/24 15:42 20:40 Unknown WBC RBC Hgb Hct MCV MCH MCHC RDW Std Deviation RDW Coeff of Rossi Plt Count MPV Immature Gran % (Auto) Neut % (Auto) Lymph % (Auto) [place] % (Auto) Eos % (Auto) Baso % (Auto) Neut # (Auto) Lymph # (Auto) [place] # (Auto) Eos # (Auto) Baso # (Auto) Immature Gran # (Auto) Absolute Nucleated RBC Nucleated RBC % (auto) Neutrophils % (Manual) Band Neutrophils % Lymphocytes % (Manual) Prolymphocyte % Reactive Lymphs % (Man) Monocytes % (Manual) Eosinophils % (Manual) Basophils % (Manual) Metamyelocytes % (Man) Myelocytes % (Man) Promyelocytes % (Man) Blast Cells % (Manual) Plasma Cell % (Manual) Other Cells % Nucleated RBC % Neutrophils # (Manual) Band Neutrophils # Total Absolute Neuts Lymphocytes # (Manual) Prolymphocyte # Reactive Lymphs # Total Abs Lymphocytes Monocytes # (Manual) Eosinophils # (Manual) Basophils # (Manual) Metamyelocytes # (Man) Myelocytes # (Manual) Promyelocytes # (Man) Blast Cells # (Man) Plasma Cell # (Manual) Other Cells # Nucleated RBCs # (Man) Hypersegmented Neuts Hyposegmented Neuts Hypogranular Neuts Large Granular Lymphs # Lrg Granular Lymphs Hairy Cells Smudge Cells Toxic Granulation Toxic Vacuolation Dohle Bodies Mark Rods Platelet Estimate Hypogranular Platelets Giant Platelets Platelet Satelliting RBC Morphology Polychromasia Hypochromasia Poikilocytosis Basophilic Stippling Anisocytosis Microcytosis Macrocytosis Spherocytes Pappenheimer Bodies Sickle Cells Target Cells Tear Drop Cells Ovalocytes Stomatocytes [place]ista[place] Bodies Echinocytes Acanthocytes (Spur) Rouleaux RBC Agglutinates Schistocytes Sezary Cell Sodium Potassium Chloride Carbon Dioxide Anion Gap BUN Creatinine Est Cr Clr Drug Dosing eGFR BUN/Creatinine Ratio Glucose POC Glucose 84 Estimat Average Glucose Hemoglobin A1c Calcium Total Bilirubin AST ALT Alkaline Phosphatase Total Protein Albumin Globulin Albumin/Globulin Ratio Triglycerides Cholesterol LDL Cholesterol, Calc VLDL Cholesterol, Calc HDL Cholesterol Cholesterol/HDL Ratio Nasal Screen MRSA (PCR) Negative Urine Opiates Screen Neg Ur Methadone, Qual Neg Urine Fentanyl Screen Neg Urine Barbiturates Neg Ur Phencyclidine (PCP) Neg U Amphetamin/Meth Scrn Neg MDMA (Ecstasy) Screen Neg U Benzodiazepines Scrn Neg Ur Cocaine Metabolite Neg U Marijuana (THC) Screen Neg Blood Parasites ID 11/04/24 11/04/24 11/04/24 07:42 07:47 08:21 WBC Cancelled 8.96 RBC Cancelled 4.64 Hgb Cancelled 13.1 Hct Cancelled 39.7 MCV Cancelled 85.6 MCH Cancelled 28.2 MCHC Cancelled 33.0 RDW Std Deviation Cancelled 49.2 H RDW Coeff of Rossi Cancelled 15.8 H Plt Count Cancelled 396 MPV Cancelled 9.6 Immature Gran % (Auto) Cancelled 0.4 Neut % (Auto) Cancelled 52.0 Lymph % (Auto) Cancelled 26.8 [place] % (Auto) Cancelled 18.2 Eos % (Auto) Cancelled 1.8 Baso % (Auto) Cancelled 0.8 Neut # (Auto) Cancelled 4.66 Lymph # (Auto) Cancelled 2.40 [place] # (Auto) Cancelled 1.63 H Eos # (Auto) Cancelled 0.16 Baso # (Auto) Cancelled 0.07 Immature Gran # (Auto) Cancelled 0.04 Absolute Nucleated RBC Cancelled Nucleated RBC % (auto) Cancelled Neutrophils % (Manual) Cancelled Band Neutrophils % Cancelled Lymphocytes % (Manual) Cancelled Prolymphocyte % Cancelled Reactive Lymphs % (Man) Cancelled Monocytes % (Manual) Cancelled Eosinophils % (Manual) Cancelled Basophils % (Manual) Cancelled Metamyelocytes % (Man) Cancelled Myelocytes % (Man) Cancelled Promyelocytes % (Man) Cancelled Blast Cells % (Manual) Cancelled Plasma Cell % (Manual) Cancelled Other Cells % Cancelled Nucleated RBC % Cancelled Neutrophils # (Manual) Cancelled Band Neutrophils # Cancelled Total Absolute Neuts Cancelled Lymphocytes # (Manual) Cancelled Prolymphocyte # Cancelled Reactive Lymphs # Cancelled Total Abs Lymphocytes Cancelled Monocytes # (Manual) Cancelled Eosinophils # (Manual) Cancelled Basophils # (Manual) Cancelled Metamyelocytes # (Man) Cancelled Myelocytes # (Manual) Cancelled Promyelocytes # (Man) Cancelled Blast Cells # (Man) Cancelled Plasma Cell # (Manual) Cancelled Other Cells # Cancelled Nucleated RBCs # (Man) Cancelled Hypersegmented Neuts Cancelled Hyposegmented Neuts Cancelled Hypogranular Neuts Cancelled Large Granular Lymphs Cancelled # Lrg Granular Lymphs Cancelled Hairy Cells Cancelled Smudge Cells Cancelled Toxic Granulation Cancelled Toxic Vacuolation Cancelled Dohle Bodies Cancelled Mark Rods Cancelled Platelet Estimate Cancelled Hypogranular Platelets Cancelled Giant Platelets Cancelled Platelet Satelliting Cancelled RBC Morphology Cancelled Polychromasia Cancelled Hypochromasia Cancelled Poikilocytosis Cancelled Basophilic Stippling Cancelled Anisocytosis Cancelled Microcytosis Cancelled Macrocytosis Cancelled Spherocytes Cancelled Pappenheimer Bodies Cancelled Sickle Cells Cancelled Target Cells Cancelled Tear Drop Cells Cancelled Ovalocytes Cancelled Stomatocytes Cancelled [place]autista[place] Bodies Cancelled Echinocytes Cancelled Acanthocytes (Spur) Cancelled Rouleaux Cancelled RBC Agglutinates Cancelled Schistocytes Cancelled Sezary Cell Cancelled Sodium 134 L Potassium 4.3 Chloride 97 L Carbon Dioxide 29 Anion Gap 8 BUN 14 Creatinine 0.86 Est Cr Clr Drug Dosing 72.9 eGFR 73.08 BUN/Creatinine Ratio 16.3 Glucose 107 H POC Glucose 113 H Estimat Average Glucose Cancelled 134 Hemoglobin A1c Cancelled 6.3 H Calcium 9.3 Total Bilirubin 0.4 AST 22 ALT 22 Alkaline Phosphatase 91 Total Protein 7.1 Albumin 3.9 Globulin 3.2 Albumin/Globulin Ratio 1.2 Triglycerides 107 Cholesterol 111 LDL Cholesterol, Calc 45 VLDL Cholesterol, Calc 21 HDL Cholesterol 45 Cholesterol/HDL Ratio 2.5 Nasal Screen MRSA (PCR) Urine Opiates Screen Ur Methadone, Qual Urine Fentanyl Screen Urine Barbiturates Ur Phencyclidine (PCP) U Amphetamin/Meth Scrn MDMA (Ecstasy) Screen U Benzodiazepines Scrn Ur Cocaine Metabolite U Marijuana (THC) Screen Blood Parasites ID Cancelled 11/04/24 12:27 WBC RBC Hgb Hct MCV MCH MCHC RDW Std Deviation RDW Coeff of Rossi Plt Count MPV Immature Gran % (Auto) Neut % (Auto) Lymph % (Auto) [place] % (Auto) Eos % (Auto) Baso % (Auto) Neut # (Auto) Lymph # (Auto) [place] # (Auto) Eos # (Auto) Baso # (Auto) Immature Gran # (Auto) Absolute Nucleated RBC Nucleated RBC % (auto) Neutrophils % (Manual) Band Neutrophils % Lymphocytes % (Manual) Prolymphocyte % Reactive Lymphs % (Man) Monocytes % (Manual) Eosinophils % (Manual) Basophils % (Manual) Metamyelocytes % (Man) Myelocytes % (Man) Promyelocytes % (Man) Blast Cells % (Manual) Plasma Cell % (Manual) Other Cells % Nucleated RBC % Neutrophils # (Manual) Band Neutrophils # Total Absolute Neuts Lymphocytes # (Manual) Prolymphocyte # Reactive Lymphs # Total Abs Lymphocytes Monocytes # (Manual) Eosinophils # (Manual) Basophils # (Manual) Metamyelocytes # (Man) Myelocytes # (Manual) Promyelocytes # (Man) Blast Cells # (Man) Plasma Cell # (Manual) Other Cells # Nucleated RBCs # (Man) Hypersegmented Neuts Hyposegmented Neuts Hypogranular Neuts Large Granular Lymphs # Lrg Granular Lymphs Hairy Cells Smudge Cells Toxic Granulation Toxic Vacuolation Dohle Bodies Mark Rods Platelet Estimate Hypogranular Platelets Giant Platelets Platelet Satelliting RBC Morphology Polychromasia Hypochromasia Poikilocytosis Basophilic Stippling Anisocytosis Microcytosis Macrocytosis Spherocytes Pappenheimer Bodies Sickle Cells Target Cells Tear Drop Cells Ovalocytes Stomatocytes [place] Bodies Echinocytes Acanthocytes (Spur) Rouleaux RBC Agglutinates Schistocytes Sezary Cell Sodium Potassium Chloride Carbon Dioxide Anion Gap BUN Creatinine Est Cr Clr Drug Dosing eGFR BUN/Creatinine Ratio Glucose POC Glucose 196 H Estimat Average Glucose Hemoglobin A1c Calcium Total Bilirubin AST ALT Alkaline Phosphatase Total Protein Albumin Globulin Albumin/Globulin Ratio Triglycerides Cholesterol LDL Cholesterol, Calc VLDL Cholesterol, Calc HDL Cholesterol Cholesterol/HDL Ratio Nasal Screen MRSA (PCR) Urine Opiates Screen Ur Methadone, Qual Urine Fentanyl Screen Urine Barbiturates Ur Phencyclidine (PCP) U Amphetamin/Meth Scrn MDMA (Ecstasy) Screen U Benzodiazepines Scrn Ur Cocaine Metabolite U Marijuana (THC) Screen Blood Parasites ID Diagnostic Findings MRI of the brain shows bilaterally infarcts involving the subcortical white matter of both hemispheres, an additional area of restricted diffusion affecting the posterior pontine area. Also noted ventricular dilatation concerning for hydrocephalus. 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 CTA of her neck with mild athero of aortic arch no significant extracranial disease Per Report Echocardiogram shows preserved left ventricular EF 60-65%,, grade 1 diastolic dysfunction, injection of contrast documented no interatrial shunt, poorly visualized valvular anatomy. Medications Administered Home Medications Medication Instructions Recorded Confirmed Last Taken blood-glucose meter (OneTouch #1 ea 03/20/22 08/15/24 Unknown Ultra2 Meter kit) OneTouch Ultra Test (blood sugar #400 ea 10/17/22 08/15/24 Unknown diagnostic) Dexcom G6 Staff Writer (blood-glucose #1 ea 02/13/23 08/15/24 Unknown meter,continuous) Dexcom G6 Sensor (blood-glucose #9 ea 02/13/23 08/15/24 Unknown sensor) Dexcom G6 Transmitter #1 ea 02/13/23 08/15/24 Unknown (blood-glucose transmitter) fluoxetine 20 mg capsule 20 mg PO BID 05/19/23 11/03/24 06/26/23 05:00 cholecalciferol (vitamin D3) 50 50 mcg PO QAM 06/18/23 11/03/24 06/25/23 mcg (2,000 unit) tablet folic acid 1 mg tablet 1 mg PO QAM 06/18/23 11/03/24 06/25/23 magnesium 200 mg tablet 200 mg PO HS 06/18/23 11/03/24 06/25/23 melatonin 10 mg tablet 10 mg PO HS PRN Sleep 06/18/23 11/03/24 Unknown pen needle, diabetic 32 gauge x 06/19/23 08/15/24 Unknown " (BD Cristy 2nd Gen Pen Needle) cholestyramine (with sugar) 4 gram 4 ea PO QAM 10/09/24 11/03/24 10/08/24 oral powder (Questran) hydrochlorothiazide 12.5 mg tablet 12.5 mg PO QAM 10/09/24 11/03/24 10/08/24 insulin aspart U-100 100 unit/mL 10 unit subcut DAILY 10/09/24 11/03/24 10/08/24 (3 mL) subcutaneous pen (Novolog FlexPen U-100 Insulin aspart) insulin glargine U-300 conc 300 82 unit subcut QA 10/09/24 11/03/24 10/08/24 unit/mL (3 mL) subcutaneous pen (Toujeo Max U-300 SoloStar) levothyroxine 125 mcg tablet 125 mcg PO DAILYBB 10/09/24 11/03/24 10/08/24 lisinopril 5 mg tablet 5 mg PO QAM 10/09/24 11/03/24 10/08/24 simvastatin 10 mg tablet 10 mg PO HS 10/09/24 11/03/24 10/08/24 acetaminophen 325 mg tablet 650 mg PO Q4 PRN Pain 11/03/24 11/03/24 Unknown acetaminophen 325 mg tablet 650 mg PO Q4 PRN TEMP=>100 11/03/24 11/03/24 Unknown aspirin 81 mg tablet,delayed 81 mg PO AMHS 11/03/24 11/03/24 Unknown release insulin aspart U-100 100 unit/mL 16 unit subcut QDD 11/03/24 11/03/24 Unknown (3 mL) subcutaneous pen (Novolog FlexPen U-100 Insulin aspart) insulin aspart U-100 100 unit/mL 30 unit subcut QDB 11/03/24 11/03/24 Unknown (3 mL) subcutaneous pen (Novolog FlexPen U-100 Insulin aspart) oxycodone-acetaminophen 5 mg-325 1 tab PO Q6 PRN PAIN 11/03/24 11/03/24 Unknown mg tablet (Percocet) MODERATE-SEVERE Active Medications Generic Name Dose Route Start Last Admin Trade Name Scottq PRN Reason Stop Dose Admin Aspirin 81 mg 11/04/24 09:00 11/04/24 08:12 Aspirin 81 Mg Ectab PO 12/04/24 08:59 81 mg DAILY CLAUDIA Administration Cholestyramine Resin 4 gm 11/04/24 09:00 11/04/24 09:59 Cholestyramine Light 4 Gm Pkt PO 12/04/24 08:59 4 gm QAM CLAUDIA Administration Enoxaparin Sodium 40 mg 11/03/24 22:00 11/04/24 09:59 Enoxaparin Inj 40 Mg/0.4 Ml Syr SQ 12/03/24 21:59 40 mg Q12H CLAUDIA Administration Fluoxetine HCl 20 mg 11/03/24 21:00 11/04/24 08:11 Fluoxetine Hcl 20 Mg Cap PO 12/03/24 20:59 20 mg BID CLAUDIA Administration Folic Acid 1 mg 11/04/24 09:00 11/04/24 08:12 Folic Acid 1 Mg Tab PO 12/04/24 08:59 1 mg QAM CLAUDIA Administration Insulin Aspart 0 units 11/03/24 21:00 11/04/24 13:17 Insulin Aspart Per Unit Charge SC 12/03/24 20:59 3 units ACHS CLAUDIA Administration Levothyroxine Sodium 125 mcg 11/04/24 06:30 11/04/24 06:26 Levothyroxine Sodium 125 Mcg Tablet PO 12/04/24 06:29 125 mcg DAILYBB CLAUDIA Administration Magnesium Oxide 400 mg 11/03/24 21:00 11/03/24 20:47 Magnesium Oxide 400 Mg Tab PO 12/03/24 20:59 400 mg HS CLAUDIA Administration Simvastatin 10 mg 11/03/24 21:00 11/03/24 20:48 Simvastatin 10 Mg Tab PO 12/03/24 20:59 10 mg HS CLAUDIA Administration Vitamin D 50 mcg 11/04/24 09:00 11/04/24 08:12 Cholecalciferol 25 Mcg (1000 Units) Tab PO 12/04/24 08:59 50 mcg QAM CLAUDIA Administration ECG Additional Comments: NSR
[2024-11-04] MEDS: CLOPIDOGREL BISULFATE 75 MG TAB PO SCH (17:13)
--- NOTE | 2024-11-04 19:42 | Communication Note ---
Date of Service: November 04, 2024
[2024-11-04] MEDS: LEVALBUTEROL 1.25 MG/3 ML NEB NEB SCH (19:48)
[2024-11-04] MEDS ORDERED: LANTUS PER UNIT CHARGE SC SCH (21:00)
[2024-11-05] MEDS: INSULIN ASPART PER UNIT CHARGE SC SCH (00:03)
[2024-11-05] MEDS ORDERED: lisinopril 5 MG TAB PO SCH (09:00)
[2024-11-05 09:34] LABS: Chol HDL Ratio 2.7 (0-5); Creatinine Clr Calc Pharmacy 81.9 ml/min
[2024-11-05] MEDS: LANTUS PER UNIT CHARGE SC SCH (09:44)
--- NOTE | 2024-11-05 16:20 | Hospitalist Progress Note ---
Date of Service November 05, 2024 Assessment & Plan (1) Stroke-like symptom: (2) Hypoglycemia: Plan This is a 69 yr old F who has a significant PMH of HTN, HLD, T1DM insulin controlled, hypothyroidism, Morbidly obese, Gerd, Mild Dementia, Depression and insomnia who presents to ED 2/2 altered mental status. Of significant pt was hospitalized 126-10/13 after sustaining a fall and R distal fibular fx requiring casting. She was discharged to [facility] rehab. Pt presents with at bedside who does most of the talking. Concerns for LUE weakness and R facial droop. Head CT, Head/Neck CTA unremarkable. LKW ~ 1100, pt out of window for consideration for TPA. Pt with known hypoglycemia and evidence of recent a1c of 5.9. Feel sx very likely to be related to hypoglycemic event #Acute CVA, left thalamus, bilateral ludwig radiata #Altered Mental status - resolved pt alert and oriented to basics Headaches x 4 weeks will obtain MRI Brain - if negative no further stroke w/u indicated, if MRI + will need to adjust treatment plan Pt still appears to be lethargic and weak, may be in setting of Covid-19, obtain UDS PT/OT will reduce insulin to reduce liklihood of hypoglycemic episodes 11/04 Brain MRI: Positive acute CVA, left thalamus and bilateral ludwig radiata Echocardiogram: No ASD Telemetry: No A-fib or arrhythmias so far Has been on aspirin 81 mg p.o. daily x 1 week Add Plavix 75 mg p.o. daily Also already on simvastatin Neurology service consulted Check lipid panel in a.m. Permissive hypertension 11/04 Remains stable overall Weakness continues to improve Neurology service consulted, recommendations noted Continue only with aspirin for now Continue simvastatin next Blood pressure within acceptable limits today No A-fib on telemetry, will need Zio patch Continue to monitor closely #Sars COV-2 relatively asymptomatic, not requiring o2 did discuss remdesivir with given pt high risk and it was decided for forego this treatment at this time Covid precautions ordered 11/04 Remains on room air Has some mild rhonchi, mildly tachypneic Chest x-ray no pneumonia Start Xopenex every 6 hours Continues to spirometry and flutter valve Will order Mucinex twice daily as well 11/05 Remains on room air Breath sounds improved Tachypnea resolved Continue nebs 4 times daily Will order ff up chest x-ray #T1DM A1C 5.22 sep 2024, feel pt is too tightly controlled given age and comorbidities will reduce insulin by 50% given suspected reduce intake in setting of covid Goal A1C for pt should be 7-8, could be correlating to pts sx as well as YANES over the last few weeks 11/04 Pharmacy glycemic control management consulted Check A1c 11/05 A1c 6.3 No hypoglycemia episodes noted Continue to monitor #Hyponatremia - chronic Na 132, hold HCTZ will give gentle fluid x 500ml repeat bmp in a.m. 11/04 Sodium 134 HCTZ on hold 11/05 Na 133 HCTZ on ghold #Mild Dementia -at baseline #R fibular fx follows [facility] ortho, NWB, cast in place, had outpt follow up and will follow up again in 4 weeks continue PT/OT DVT ppx: SQ Lovenox FULL CODE PCP: Hemanth Dispo: from Rehab Admission and Anticipated Discharge Date Admission Date: November 04, 2024 Subjective Follow-up for acute CVA, etc. Seen resting in bed, sitting up, awake and alert, oriented, answering questions appropriately States she feels fine overall Left upper extremity motor strength mostly back to normal according to patient No new neurologic symptoms States breathing is better today, denies cough, shortness of breath No other new symptoms Review of Systems Review of Systems: all noted and negative except for above Physical Exam Physical Exam: General- oriented x 3, not in distress, speaks in sentences with no effort or accessory muscle use Eyes- anicteric Neck- no JVD Lungs-Very faint intermittent wheezing on the left, clear on the right Heart- normal rate, regular rhythm; no murmurs Abdomen- normal bowel sounds, nondistended, soft, nontender Extremities- no pretibial edema, no calf tenderness Neuro- alert, oriented x 3; no gross focal neurologic deficits Skin- warm & dry Results & Data Results & Data Vital Signs (Past 12 Hours) Vital Signs Temp Pulse Pulse Resp BP BP Pulse Ox 11/05/24 15:36 36.9 C 89 18 136/80 95 11/05/24 14:04 84 16 95 11/05/24 11:57 36.6 C 83 20 143/75 H 95 11/05/24 09:04 36.5 C 87 18 153/70 H 92 11/05/24 08:00 74 11/05/24 07:50 11/05/24 07:33 83 15 95 O2 Del Method 11/05/24 15:36 Room Air 11/05/24 14:04 Room Air 11/05/24 11:57 Room Air 11/05/24 09:04 Room Air 11/05/24 08:00 11/05/24 07:50 Room Air 11/05/24 07:33 Room Air all noted and reviewed including below
--- NOTE | 2024-11-05 17:32 | XRay Report ---
INDICATION: Cough. TECHNIQUE: Frontal radiograph of the chest. COMPARISON: Radiograph from 11/03/2024. FINDINGS: Mild cardiomegaly. Pulmonary vasculature appear within normal limits. No infiltrate, pleural effusion or pneumothorax. No acute osseous abnormality evident. IMPRESSION: No acute cardiopulmonary process. Electronically signed by Kit Ruiz 11-05-2024 5:32 PM
[2024-11-06 06:50] LABS: BUN Creatinine Ratio 25.4 (10-20); Calcium 9.1 mg/dl (8.6-10.3); Creatinine Clr Calc Pharmacy 93.7 ml/min; Potassium 3.8 mmol/L (3.5-5.1)
[2024-11-06 09:53] LABS: Basophils # (auto) 0.05 K/uL (0.00-0.20); Basophils % (auto) 0.4 %; Eosinophils # (auto) 0.19 K/uL (0.00-0.50); Eosinophils % (auto) 1.6 %; Hematocrit (blood only) 38.3 % (37.0-47.0); Hemoglobin 12.5 g/dl (12.0-16.0); Immature Granulocytes # (auto) 0.05 K/uL (0.01-0.20); Immature Granulocytes % (auto) 0.4 %; Lymphocytes # (auto) 3.55 K/uL (1.20-3.40); Lymphocytes % (auto) 29.3 %; Mean Corpuscular Hemoglobin 27.7 pg (25.0-34.0); Mean Corpuscular Hgb Conc 32.6 g/dL (32.0-36.0); Mean Corpuscular Volume 84.9 fL (80.0-100.0); Mean Platelet Volume 9.9 fL (9.4-12.4); Monocytes # (auto) 1.13 K/uL (0.11-0.59); Monocytes % (auto) 9.3 %; Neutrophils # (auto) 7.13 K/uL (1.40-6.50); Platelet Count 411 K/uL (130-400); RDW Coefficient of Variation 15.7 % (11.5-14.5); RDW Standard Deviation 48.4 fL (36.4-46.3); Red Blood Count 4.51 M/uL (4.20-5.40)
--- NOTE | 2024-11-06 12:43 | Hospitalist Progress Note ---
Date of Service November 06, 2024 Assessment & Plan (1) Stroke-like symptom: (2) Hypoglycemia: Plan This is a 69 yr old F who has a significant PMH of HTN, HLD, T1DM insulin controlled, hypothyroidism, Morbidly obese, Gerd, Mild Dementia, Depression and insomnia who presents to ED 2/2 altered mental status. Of significant pt was hospitalized 126-10/13 after sustaining a fall and R distal fibular fx requiring casting. She was discharged to [facility] rehab. Pt presents with at bedside who does most of the talking. Concerns for LUE weakness and R facial droop. Head CT, Head/Neck CTA unremarkable. LKW ~ 1100, pt out of window for consideration for TPA. Pt with known hypoglycemia and evidence of recent a1c of 5.9. Feel sx very likely to be related to hypoglycemic event #Acute CVA, left thalamus, bilateral ludwig radiata #Altered Mental status - resolved pt alert and oriented to basics Headaches x 4 weeks will obtain MRI Brain - if negative no further stroke w/u indicated, if MRI + will need to adjust treatment plan Pt still appears to be lethargic and weak, may be in setting of Covid-19, obtain UDS PT/OT will reduce insulin to reduce liklihood of hypoglycemic episodes 11/04 Brain MRI: Positive acute CVA, left thalamus and bilateral ludwig radiata Echocardiogram: No ASD Telemetry: No A-fib or arrhythmias so far Has been on aspirin 81 mg p.o. daily x 1 week Add Plavix 75 mg p.o. daily Also already on simvastatin Neurology service consulted Check lipid panel in a.m. Permissive hypertension 11/05 Remains stable overall Weakness continues to improve Neurology service consulted, recommendations noted Continue simvastatin next Blood pressure within acceptable limits today No A-fib on telemetry, will need Zio patch Continue to monitor closely 11/06 Stable overall Continue aspirin, simvastatin Blood pressure okay No A-fib on telemetry Continue PT OT #Sars COV-2 relatively asymptomatic, not requiring o2 did discuss remdesivir with given pt high risk and it was decided for forego this treatment at this time Covid precautions ordered 11/04 Remains on room air Has some mild rhonchi, mildly tachypneic Chest x-ray no pneumonia Start Xopenex every 6 hours Continues to spirometry and flutter valve Will order Mucinex twice daily as well 11/05 Remains on room air Breath sounds improved Tachypnea resolved Continue nebs 4 times daily Will order ff up chest x-ray 11/06 stable overall repeat CXR: no pneumonia #T1DM A1C 5.22 sep 2024, feel pt is too tightly controlled given age and comorbidities will reduce insulin by 50% given suspected reduce intake in setting of covid Goal A1C for pt should be 7-8, could be correlating to pts sx as well as YANES over the last few weeks 11/04 Pharmacy glycemic control management consulted Check A1c 11/05 A1c 6.3 No hypoglycemia episodes noted Continue to monitor 11/06 stable overall continue to monitor #Hyponatremia - chronic Na 132, hold HCTZ will give gentle fluid x 500ml repeat bmp in a.m. 11/04 Sodium 134 HCTZ on hold 11/05 Na 133 HCTZ on ghold 11/06 Na 135 hold HCTZ for now #Mild hematuria likely from Rahman Insertion improving CBC stable UA pending Lovenox held monitor closely #Mild Dementia -at baseline #R fibular fx follows [facility] ortho, NWB, cast in place, had outpt follow up and will follow up again in 4 weeks continue PT/OT DVT ppx: SQ Lovenox-- held for hematuria FULL CODE PCP: Hemanth Dispo: from Rehab Admission and Anticipated Discharge Date Admission Date: November 04, 2024 Subjective Follow-up for acute CVA, COVID, etc. Seen resting in bed, sitting up, awake and alert Answering questions States she feels better today overall Left upper extremity improving as per patient Left lower extremity strength about the same States breathing is better Denies cough Denies abdominal pain, fevers or chills Review of Systems Review of Systems: all noted and negative except for above Physical Exam Physical Exam: General- oriented x 2, not in distress, speaks in sentences with no effort or accessory muscle use Eyes- anicteric Neck- no JVD Lungs- clear breath sounds bilaterally, no rales/wheezes Heart- normal rate, regular rhythm; no murmurs Abdomen- normal bowel sounds, nondistended, soft, nontender Extremities- LLE: no pretibial edema, no calf tenderness RLE: cast in place Neuro- alert, oriented x 2; no new gross focal neurologic deficits LUE: Strength 5/5, sensation 100% Left lower extremity: Strength 4/5, sensation 100% Skin- warm & dry Results & Data Results & Data Vital Signs (Past 12 Hours) Vital Signs Temp Pulse Resp BP Pulse Ox O2 Del Method 11/06/24 10:50 37.3 C 87 20 131/74 93 Room Air 11/06/24 07:51 36.6 C 81 18 126/64 95 Room Air 11/06/24 07:18 77 16 93 Room Air 11/06/24 04:00 36.7 C 82 18 146/76 H 95 Room Air 11/06/24 01:37 77 18 92 Room Air all noted and reviewed including below
[2024-11-06] MEDS ORDERED: LEVALBUTEROL 1.25 MG/3 ML NEB NEB PRN (13:42)
[2024-11-06 13:57] LABS: Appearance Urine Turbid (Clear); Bacteria Urine Automated 4+ (None Seen); Bilirubin Urine Negative (Negative); Blood Urine 3+ (Negative); Color Urine Orange; Epithelial Cell Urine Auto 0-2 /hpf (0-2); Glucose Urine UA Trace (Negative); Ketones Urine Trace (Negative); Leukocyte Esterase Urine 2+ (Negative); Nitrite Urine Negative (Negative); Protein Urine 2+ (Negative); RBC Urine Automated >20 /hpf (0-2); Specific Gravity Urine 1.025 (1.000-1.030); Triple Phosphate Crystal Urine Present (None Prsent); Urobilinogen Urine Negative (Negative); WBC Urine Automated >50 /hpf (0-5)
--- NOTE | 2024-11-06 14:48 | Pharmacy Report ---
Pharmacy Glycemic Short Note 2 - Date of Service November 06, 2024 - Glycemic Short BSG Results (Last 24 hours): 11/05/24 11/05/24 11/05/24 16:59 20:05 23:41 Glucose POC Glucose 99 111 H 91 11/06/24 11/06/24 11/06/24 05:47 08:17 12:26 Glucose 100 H POC Glucose 109 H 266 H OUTPATIENT ANTIDIABETIC REGIMEN: * toujeo 82 units daily, novolog SSI ASSESSMENT: 11/06: * Madyson received 82 units of insulin yesterday (65 units basal + 17 units bolus) * Fasting BSG at goal, 109 mg/dL. Although would typically consider this an acceptable fasting BSG, will slightly decrease basal insulin due to concern for recent embolic stroke and hypoglycemia as an outpatient. Will trial ~55 units per day of basal insulin. 11/04: * 69 year old, type 1 diabetic admitted with AMS, hypoglycemia, CVA concerns. Pharmacy consulted for glycemic management. * Known to glycemic from prior admission last month. Per notes, BSGs in 40s at outside facility and concerns for frequent low blood sugars. Plan to reduce basal today 50-60% from outpatient dose for today. Diet started, minimal PO intake at breakfast - better at lunch. PLAN FOR INPATIENT GLYCEMIC CONTROL: * Hold outpatient oral diabetes medications * Basal insulin * 11/06: Lantus 50 units SQ qam + 0-5 units SQ qhs * 11/07: Lantus 55 units SQ qam * Bolus insulin * NovoLog per scale ACHS or Q6hrs while NPO * Goal Range: Low 120 mg/dL - High 160 mg/dL * Correction Factor: 30 mg/dL/unit * Nutritional / Prandial insulin per carb ratio of 1 unit per 10 grams CHO consumed
[2024-11-06] MEDS: LANTUS PER UNIT CHARGE SC SCH (21:15)
[2024-11-07] MEDS ORDERED: LANTUS PER UNIT CHARGE SC SCH (09:00)
--- NOTE | 2024-11-07 09:38 | Pharmacy Report ---
- Date of Service November 07, 2024 - Pharmacy CVA/TIA Medication Review Medications to Prevent Stroke handout has been added to the patients discharge packet. Antiplatelet(s) * aspirin 81 mg PO daily Cholesterol * Simvastatin 10 mg PO daily, hospitalist currently determining if patient will be advanced to high-intensity statin. DVT Prophylaxis * Enoxaparin SQ BID (currently on hold, hematuria) Therapeutic Anticoagulation * No history of Afib/Aflutter noted, but Zio patch ordered for discharge. * Consideration for therapeutic anticoagulation upon discharge per neurology note Type 2 Diabetes * Patient does not have T2DM * Hx of T1DM * Endocrinology notes mention possible addition of GLP-1 agonist for weight loss. * This may be reasonable and should be discussed with endocrinology in light of new stroke.
[2024-11-07] MEDS: LANTUS PER UNIT CHARGE SC SCH (10:19)
[2024-11-07] MEDS: ACETAMINOPHEN 325 MG TAB PO PRN (12:40)
[2024-11-07 15:27] LABS: Appearance Urine Cloudy (Clear); Bilirubin Urine Negative (Negative); Blood Urine 3+ (Negative); Color Urine Red; Glucose Urine UA Negative (Negative); Ketones Urine Negative (Negative); Leukocyte Esterase Urine Trace (Negative); Nitrite Urine Negative (Negative); Protein Urine 3+ (Negative); Specific Gravity Urine 1.025 (1.000-1.030); Urobilinogen Urine Negative (Negative)
[2024-11-07 15:29] LABS: Bacteria Urine 1+ (None Seen); RBC Urine >20 /hpf (0-2); WBC Urine 21-50 /hpf (0-5)
--- NOTE | 2024-11-07 17:20 | Hospitalist Progress Note ---
Date of Service November 07, 2024 Assessment & Plan (1) Stroke-like symptom: (2) Hypoglycemia: Plan This is a 69 yr old F who has a significant PMH of HTN, HLD, T1DM insulin controlled, hypothyroidism, Morbidly obese, Gerd, Mild Dementia, Depression and insomnia who presents to ED 2/2 altered mental status. Of significant pt was hospitalized 126-10/13 after sustaining a fall and R distal fibular fx requiring casting. She was discharged to [facility] rehab. Pt presents with at bedside who does most of the talking. Concerns for LUE weakness and R facial droop. Head CT, Head/Neck CTA unremarkable. LKW ~ 1100, pt out of window for consideration for TPA. Pt with known hypoglycemia and evidence of recent a1c of 5.9. Feel sx very likely to be related to hypoglycemic event #Acute CVA, left thalamus, bilateral ludwig radiata #Altered Mental status - resolved pt alert and oriented to basics Headaches x 4 weeks will obtain MRI Brain - if negative no further stroke w/u indicated, if MRI + will need to adjust treatment plan Pt still appears to be lethargic and weak, may be in setting of Covid-19, obtain UDS PT/OT will reduce insulin to reduce liklihood of hypoglycemic episodes 11/04 Brain MRI: Positive acute CVA, left thalamus and bilateral ludwig radiata Echocardiogram: No ASD Telemetry: No A-fib or arrhythmias so far Has been on aspirin 81 mg p.o. daily x 1 week Add Plavix 75 mg p.o. daily Also already on simvastatin Neurology service consulted Check lipid panel in a.m. Permissive hypertension 11/05 Remains stable overall Weakness continues to improve Neurology service consulted, recommendations noted Continue simvastatin next Blood pressure within acceptable limits today No A-fib on telemetry, will need Zio patch Continue to monitor closely 11/06 Stable overall Continue aspirin, simvastatin Blood pressure okay No A-fib on telemetry Continue PT OT 11/07 Remains stable overall Continue aspirin simvastatin BP within acceptable range so far No A-fib on telemetry, will need outpatient twister hand #Sars COV-2 relatively asymptomatic, not requiring o2 did discuss remdesivir with given pt high risk and it was decided for forego this treatment at this time Covid precautions ordered 11/04 Remains on room air Has some mild rhonchi, mildly tachypneic Chest x-ray no pneumonia Start Xopenex every 6 hours Continues to spirometry and flutter valve Will order Mucinex twice daily as well 11/05 Remains on room air Breath sounds improved Tachypnea resolved Continue nebs 4 times daily Will order ff up chest x-ray 11/06 stable overall repeat CXR: no pneumonia 11/07 Stable overall On room air Respiratory symptoms resolved #T1DM A1C 5.22 sep 2024, feel pt is too tightly controlled given age and comorbidities will reduce insulin by 50% given suspected reduce intake in setting of covid Goal A1C for pt should be 7-8, could be correlating to pts sx as well as YANES over the last few weeks 11/04 Pharmacy glycemic control management consulted Check A1c 11/05 A1c 6.3 No hypoglycemia episodes noted Continue to monitor 11/06 stable overall continue to monitor 11/07 stable #Hyponatremia - chronic Na 132, hold HCTZ will give gentle fluid x 500ml repeat bmp in a.m. 11/04 Sodium 134 HCTZ on hold 11/05 Na 133 HCTZ on ghold 11/06 Na 135 hold HCTZ for now 11/07 stable #Mild hematuria likely from Rahman Insertion improving CBC stable UA pending Lovenox held 11/07 Urine culture: Pending But resolving bleeding from Rahman cath resolving Hold off on Lovenox for now, hopefully will be able to resume tomorrow #Mild Dementia -at baseline #R fibular fx follows [facility] ortho, NWB, cast in place, had outpt follow up and will follow up again in 4 weeks continue PT/OT DVT ppx: SQ Lovenox-- held for hematuria FULL CODE PCP: Hemanth Dispo: from Rehab Admission and Anticipated Discharge Date Admission Date: November 04, 2024 Subjective Per psychiatry service, counter caser to coordinate follow-up for acute CVA, COVID, etc. Seen resting in bed, awake and alert, good spirits States she feels fine overall No shortness of breath, cough, chest pain Still having left lower leg weakness No other new symptoms Review of Systems Review of Systems: all noted and negative except for above Physical Exam Physical Exam: General- oriented x 2, not in distress, speaks in sentences with no effort or accessory muscle use Eyes- anicteric Neck- no JVD Lungs- clear breath sounds bilaterally, no rales/wheezes Heart- normal rate, regular rhythm; no murmurs Abdomen- normal bowel sounds, nondistended, soft, nontender Extremities- no pretibial edema, no calf tenderness Neuro- alert, oriented x 3;Left lower extremity motor strength 2-3 out of 5, no new gross focal neurologic deficits Skin- warm & dry Results & Data Results & Data Vital Signs (Past 12 Hours) Vital Signs Temp Pulse Pulse Resp BP BP Pulse Ox 11/07/24 15:11 36.9 C 77 18 144/59 H 97 11/07/24 11:17 36.5 C 77 20 137/76 92 11/07/24 07:30 36.6 C 70 20 125/73 98 11/07/24 07:00 79 O2 Del Method 11/07/24 15:11 Room Air 11/07/24 11:17 Room Air 11/07/24 07:30 Room Air 11/07/24 07:00 all noted and reviewed including below
[2024-11-08 08:52] LABS: Basophils # (auto) 0.05 K/uL (0.00-0.20); Basophils % (auto) 0.4 %; Eosinophils % (auto) 2.7 %; Hematocrit (blood only) 38.5 % (37.0-47.0); Hemoglobin 12.8 g/dl (12.0-16.0); Immature Granulocytes # (auto) 0.04 K/uL (0.01-0.20); Immature Granulocytes % (auto) 0.4 %; Lymphocytes # (auto) 2.82 K/uL (1.20-3.40); Lymphocytes % (auto) 25.2 %; Mean Corpuscular Hemoglobin 28.3 pg (25.0-34.0); Mean Corpuscular Hgb Conc 33.2 g/dL (32.0-36.0); Mean Corpuscular Volume 85.2 fL (80.0-100.0); Mean Platelet Volume 9.6 fL (9.4-12.4); Monocytes # (auto) 0.89 K/uL (0.11-0.59); Monocytes % (auto) 7.9 %; Neutrophils # (auto) 7.11 K/uL (1.40-6.50); Neutrophils % (auto) 63.4 %; Platelet Count 397 K/uL (130-400); RDW Standard Deviation 47.1 fL (36.4-46.3); Red Blood Count 4.52 M/uL (4.20-5.40); White Blood Count 11.21 K/ul (4.8-10.8)
[2024-11-08] MEDS: FAMOTIDINE 20 MG TAB PO PRN (09:05)
[2024-11-08 09:06] LABS: BUN Creatinine Ratio 26.7 (10-20); Calcium 8.6 mg/dl (8.6-10.3); Potassium 3.8 mmol/L (3.5-5.1)
--- NOTE | 2024-11-08 17:09 | Hospitalist Progress Note ---
Date of Service November 08, 2024 Assessment & Plan (1) Stroke-like symptom: (2) Hypoglycemia: Plan This is a 69 yr old F who has a significant PMH of HTN, HLD, T1DM insulin controlled, hypothyroidism, Morbidly obese, Gerd, Mild Dementia, Depression and insomnia who presents to ED 2/2 altered mental status. Of significant pt was hospitalized 126-10/13 after sustaining a fall and R distal fibular fx requiring casting. She was discharged to [facility] rehab. Pt presents with at bedside who does most of the talking. Concerns for LUE weakness and R facial droop. Head CT, Head/Neck CTA unremarkable. LKW ~ 1100, pt out of window for consideration for TPA. Pt with known hypoglycemia and evidence of recent a1c of 5.9. Feel sx very likely to be related to hypoglycemic event #Acute CVA, left thalamus, bilateral ludwig radiata #Altered Mental status - resolved pt alert and oriented to basics Headaches x 4 weeks will obtain MRI Brain - if negative no further stroke w/u indicated, if MRI + will need to adjust treatment plan Pt still appears to be lethargic and weak, may be in setting of Covid-19, obtain UDS PT/OT will reduce insulin to reduce liklihood of hypoglycemic episodes 11/04 Brain MRI: Positive acute CVA, left thalamus and bilateral ludwig radiata Echocardiogram: No ASD Telemetry: No A-fib or arrhythmias so far Has been on aspirin 81 mg p.o. daily x 1 week Add Plavix 75 mg p.o. daily Also already on simvastatin Neurology service consulted Check lipid panel in a.m. Permissive hypertension 11/05 Remains stable overall Weakness continues to improve Neurology service consulted, recommendations noted Continue simvastatin next Blood pressure within acceptable limits today No A-fib on telemetry, will need Zio patch Continue to monitor closely 11/08 Neurology recommendations: Recommend to discontinue Plavix continue on aspirin at the current dose of Lovenox. To avoid risk of hemorrhagic conversion. Continue to monitor telemetry rule out paroxysmal atrial fibrillation, the patient is considered high risk given body habitus. She will need a Zio patch upon discharge . Anticoagulation to be considered upon discharge for stroke prevention Remains stable overall Continue aspirin, simvastatin Lovenox SC 40mg decreased to daily in light of hematuria from Rahman- now resolved BP within acceptable range so far No A-fib on telemetry, will need outpatient bus mechanic #Sars COV-2 relatively asymptomatic, not requiring o2 did discuss remdesivir with given pt high risk and it was decided for forego this treatment at this time Covid precautions ordered Has some mild rhonchi, mildly tachypneic Chest x-ray no pneumonia Xopenex every 6 hours spirometry and flutter valve Mucinex twice daily as well Remains on room air Breath sounds improved Tachypnea resolved repeat CXR no pneumonia Continue nebs 4 times daily #T1DM A1C 5.22 sep 2024, feel pt is too tightly controlled given age and comorbidities will reduce insulin by 50% given suspected reduce intake in setting of covid Goal A1C for pt should be 7-8, could be correlating to pts sx as well as YANES over the last few weeks 11/04 Pharmacy glycemic control management consulted Check A1c 11/05 A1c 6.3 No hypoglycemia episodes noted Continue to monitor 11/08 stable overall continue to monitor #Hyponatremia - chronic Na 132, hold HCTZ will give gentle fluid x 500ml repeat bmp in a.m. 11/04 Sodium 134 HCTZ on hold 11/05 Na 133 HCTZ on ghold 11/06 Na 135 hold HCTZ for now 11/08 stable #Mild hematuria likely from Rahman Insertion improving CBC stable UA pending Lovenox held 11/08 Urine culture: Pending mild bleeding from Rahman cath: resolved Lovenox SC 40mg BID changed to daily for now-- check with pharmacist #Mild Dementia -at baseline #R fibular fx follows [facility] ortho, NWB, cast in place, had outpt follow up and will follow up again in 4 weeks continue PT/OT DVT ppx: SQ Lovenox-- changed from BID to daily for now, in light of GI bleed, check with Pharmacist FULL CODE PCP: Hemanth Dispo: from Rehab Admission and Anticipated Discharge Date Admission Date: November 04, 2024 Subjective ff up for acute cva, covid, hypoglycemia episode, etc seen resting in bed, comforable awake, alert states she feels fine overall L lower ext weakness about the same breathing is ok, no cough, no chest pain no other symptoms Review of Systems Review of Systems: all noted and negative except for above Physical Exam Physical Exam: General- awake, alert, oriented, not in distress, speaks in sentences with no effort or accessory muscle use Eyes- anicteric Neck- no JVD Lungs- clear breath sounds bilaterally, no rales/wheezes Heart- normal rate, regular rhythm; no murmurs Abdomen- normal bowel sounds, nondistended, soft, nontender Extremities- no pretibial edema, no calf tenderness Neuro- alert, oriented x 3;LLE motor strength 3/5 RLE (+) cast Skin- warm & dry Results & Data Results & Data Vital Signs (Past 12 Hours) Vital Signs Temp Pulse Pulse Resp BP Pulse Ox O2 Del Method 11/08/24 15:15 36.9 C 73 18 135/59 L 97 Room Air 11/08/24 13:05 77 11/08/24 11:27 36.7 C 73 18 120/75 95 Room Air 11/08/24 07:13 36.8 C 104 H 18 180/96 H 95 Room Air 11/08/24 05:49 74 all noted and reviewed including below
--- NOTE | 2024-11-09 08:29 | Hospitalist Progress Note ---
Date of Service November 09, 2024 Assessment & Plan (1) Stroke-like symptom: (2) Hypoglycemia: Plan 69 yr old F who has a significant PMH of HTN, HLD, T1DM insulin controlled, hypothyroidism, Morbidly obese, Gerd, Mild Dementia, Depression and insomnia who presents to ED 2/2 altered mental status. Of significant pt was hospitalized 10/09-10/13 after sustaining a fall and R distal fibular fx requiring casting. She was discharged to [facility] rehab. Pt presents with LUE weakness and R facial droop. Head CT, Head/Neck CTA unremarkable. LKW ~ 1100, pt out of window for consideration for TPA. Pt with known hypoglycemia and evidence of recent a1c of 5.9. Feel sx very likely to be related to hypoglycemic event #Acute CVA, left thalamus, bilateral ludwig radiata #Altered Mental status - resolved pt alert and oriented to basics Headaches x 4 weeks 11/04 MRI Brain - Positive acute CVA, left thalamus and bilateral ludwig radiata Echocardiogram: No ASD Telemetry: No A-fib or arrhythmias so far, will need Zio patch Has been on aspirin 81 mg p.o. daily x 1 week - re-checked - pt has been on ASA 81 BID Add Plavix 75 mg p.o. daily Also already on simvastatin Neurology service consulted On admission pt appeared to be lethargic and weak, may be in setting of Covid- 19, obtained UDS PT/OT will reduce insulin to reduce liklihood of hypoglycemic episodes 11/08 Neurology recommendations: Recommend to discontinue Plavix continue on aspirin at the current dose of Lovenox. To avoid risk of hemorrhagic conversion. Continue to monitor telemetry rule out paroxysmal atrial fibrillation, the patient is considered high risk given body habitus. She will need a Zio patch upon discharge . Anticoagulation to be considered upon discharge for stroke prevention Remains stable overall Continue aspirin, simvastatin Lovenox SC 40mg decreased to daily in light of hematuria from Rahman- now resolved BP within acceptable range so far 11/09 Dr. Ashford discussed with Neurologist Dr. Saldaña over the phone, recommendation: ASA 81mg po daily + Plavix 75mg po daily for 3 weeks, then ASA 81mg po daily only Lovenox 40mg SC daily ok as per pharmacist for DVT Px Dr Saldaña ok to have Lovenox SC daily along with ASA and Plavix orders placed will need outpatient Ziopatch monitoring #Sars COV-2 relatively asymptomatic, not requiring o2 previous hospitalist discussed remdesivir with given pt high risk and it was decided for forego this treatment at this time Covid precautions ordered Has some mild rhonchi, mildly tachypneic Chest x-ray no pneumonia Xopenex every 6 hours spirometry and flutter valve Mucinex twice daily as well Remains on room air Breath sounds improved Tachypnea resolved repeat CXR no pneumonia Continue nebs 4 times daily #T1DM A1C 5.22 sep 2024, feel pt is too tightly controlled given age and comorbidities reduced insulin by 50% given suspected reduce intake in setting of covid Goal A1C for pt should be 7-8, could be correlating to pts sx as well as YANES over the last few weeks Pharmacy glycemic control management consulted Check A1c A1c 6.3 No hypoglycemia episodes noted Continue to monitor #Hyponatremia - chronic Na 132, hold HCTZ gentle fluid x 500ml repeat bmp in a.m. Na stable #Mild hematuria, UTI likely from Rahman Insertion improving CBC stable UA and ucultx concerning for infection - will repeat UA, Rocephin ordered (discussed w/ RN and previous hospitalist 11/09) Lovenox held 11/08 Urine culture: Pending mild bleeding from Rahman cath: resolved Lovenox SC 40mg BID changed to daily for now-- check with pharmacist #Mild Dementia -at baseline #R fibular fx follows [facility] ortho, NWB, cast in place, had outpt follow up and will follow up again in 4 weeks continue PT/OT DVT ppx: SQ Lovenox-- changed from BID to daily for now, in light of GI bleed, check with Pharmacist FULL CODE PCP: Dr. Saxena Dispo: from Rehab Admission and Anticipated Discharge Date Admission Date: November 04, 2024 Subjective Pt seen in follow up for acute cva, covid, hypoglycemia episode, etc. Recent hx of fibular fx and s/p surg. repair Pt currently lying in bed, comfortable awake, alert states she feels fine overall L lower ext weakness about the same breathing is ok, no cough, no chest pain no other symptoms Discussed w/ OT at the bedside Called for P2P - awaiting call back Also discussed w/ previous provider and RN - Ucultx - recommends to obtain another UA. Pt has Rahman. Rocephin started. Review of Systems Review of Systems: All systems reviewed & are unremarkable except as noted in Subjective Physical Exam Physical Exam: General- awake, alert, oriented, not in distress, speaks in sentences with no effort or accessory muscle use Eyes- anicteric Neck- no JVD Lungs- clear breath sounds bilaterally, no rales/wheezes Heart- normal rate, regular rhythm; no murmurs Abdomen- normal bowel sounds, nondistended, soft, nontender Extremities- no pretibial edema, no calf tenderness Neuro- alert, oriented x 3;LLE weakness - but pt able to move (and says it's improved) RLE (+) cast Skin- warm & dry Results & Data Results & Data Vital Signs (Past 12 Hours) Vital Signs Temp Pulse Pulse Resp BP Pulse Ox O2 Del Method 11/09/24 08:22 36.7 C 74 18 143/74 H 95 Room Air 11/09/24 04:13 36.8 C 77 20 164/74 H 95 Room Air 11/09/24 00:04 36.8 C 74 20 152/72 H 94 Room Air 11/08/24 23:59 76 11/08/24 20:41 36.9 C 73 20 135/59 L 97 Room Air Laboratory Results 11/09/24 11/08/24 11/08/24 Range/Units 08:17 20:13 17:32 WBC (4.8-10.8) K/ul RBC (4.20-5.40) M/uL Hgb (12.0-16.0) g/dl Hct (37.0-47.0) % MCV (80.0-100.0) fL MCH (25.0-34.0) pg MCHC (32.0-36.0) g/dL RDW Std Deviation (36.4-46.3) fL RDW Coeff of Rossi (11.5-14.5) % Plt Count (130-400) K/uL MPV (9.4-12.4) fL Immature Gran % (Auto) % Neut % (Auto) % Lymph % (Auto) % Frederick % (Auto) % Eos % (Auto) % Baso % (Auto) % Neut # (Auto) (1.40-6.50) K/uL Lymph # (Auto) (1.20-3.40) K/uL Frederick # (Auto) (0.11-0.59) K/uL Eos # (Auto) (0.00-0.50) K/uL Baso # (Auto) (0.00-0.20) K/uL Immature Gran # (Auto) (0.01-0.20) K/uL Sodium (136-145) mmol/L Potassium (3.5-5.1) mmol/L Chloride (98-107) mmol/L Carbon Dioxide (21-32) mmol/L Anion Gap (3-11) BUN (6-23) mg/dl Creatinine (0.6-1.2) mg/dl Est Cr Clr Drug Dosing ml/min eGFR BUN/Creatinine Ratio (10-20) Glucose (70-99(Fasting)) mg/dl POC Glucose 127 H 127 H 91 (70-99) mg/dl Calcium (8.6-10.3) mg/dl 11/08/24 11/08/24 11/08/24 Range/Units 12:27 08:37 08:21 WBC 11.21 H (4.8-10.8) K/ul RBC 4.52 (4.20-5.40) M/uL Hgb 12.8 (12.0-16.0) g/dl Hct 38.5 (37.0-47.0) % MCV 85.2 (80.0-100.0) fL MCH 28.3 (25.0-34.0) pg MCHC 33.2 (32.0-36.0) g/dL RDW Std Deviation 47.1 H (36.4-46.3) fL RDW Coeff of Rossi 15.0 H (11.5-14.5) % Plt Count 397 (130-400) K/uL MPV 9.6 (9.4-12.4) fL Immature Gran % (Auto) 0.4 % Neut % (Auto) 63.4 % Lymph % (Auto) 25.2 % Frederick % (Auto) 7.9 % Eos % (Auto) 2.7 % Baso % (Auto) 0.4 % Neut # (Auto) 7.11 H (1.40-6.50) K/uL Lymph # (Auto) 2.82 (1.20-3.40) K/uL Frederick # (Auto) 0.89 H (0.11-0.59) K/uL Eos # (Auto) 0.30 (0.00-0.50) K/uL Baso # (Auto) 0.05 (0.00-0.20) K/uL Immature Gran # (Auto) 0.04 (0.01-0.20) K/uL Sodium 133 L (136-145) mmol/L Potassium 3.8 (3.5-5.1) mmol/L Chloride 101 (98-107) mmol/L Carbon Dioxide 26 (21-32) mmol/L Anion Gap 6 (3-11) BUN 16 (6-23) mg/dl Creatinine 0.60 (0.6-1.2) mg/dl Est Cr Clr Drug Dosing 105.0 ml/min eGFR 97.10 BUN/Creatinine Ratio 26.7 H (10-20) Glucose 151 H (70-99(Fasting)) mg/dl POC Glucose 136 H 161 H (70-99) mg/dl Calcium 8.6 (8.6-10.3) mg/dl Medications Administered Current Inpatient Medications Acetaminophen (Acetaminophen 325 Mg Tab) 650 mg PO Q4H PRN PRN Reason: Pain or Fever Stop: 12/03/24 19:08 Last Admin: 11/08/24 08:25 Dose: 650 mg Aspirin (Aspirin 81 Mg Ectab) 81 mg PO DAILY [facility] Stop: 12/04/24 08:59 Last Admin: 11/08/24 09:05 Dose: 81 mg Cholestyramine Resin (Cholestyramine Light 4 Gm Pkt) 4 gm PO QAM [facility] Stop: 12/04/24 08:59 Last Admin: 11/08/24 08:25 Dose: 4 gm Clopidogrel Bisulfate (Clopidogrel Bisulfate 75 Mg Tab) 75 mg PO QAM [facility] Stop: 11/30/24 08:59 Dextrose (Dextrose 50% 50 Ml Syringe) 25 - 50 ml IV UD PRN; Protocol PRN Reason: Hypoglycemia Protocol Stop: 12/03/24 19:08 Enoxaparin Sodium (Enoxaparin Inj 40 Mg/0.4 Ml Syr) 40 mg SQ Q24H [facility] Stop: 12/09/24 08:14 Famotidine (Famotidine 20 Mg Tab) 20 mg PO DAILY PRN PRN Reason: Heartburn Stop: 12/03/24 19:08 Last Admin: 11/08/24 09:05 Dose: 20 mg Fluoxetine HCl (Fluoxetine Hcl 20 Mg Cap) 20 mg PO BID [facility] Stop: 12/03/24 20:59 Last Admin: 11/08/24 22:47 Dose: 20 mg Folic Acid (Folic Acid 1 Mg Tab) 1 mg PO QAM [facility] Stop: 12/04/24 08:59 Last Admin: 11/08/24 09:06 Dose: 1 mg Glucagon (Glucagon For Inj 1 Mg Vial) 1 mg SQ UD PRN; Protocol PRN Reason: Hypoglycemia Protocol Stop: 12/03/24 19:08 Glucose (Glucose 40% Gel 15 Gm Tube) 15 - 30 gm PO UD PRN; Protocol PRN Reason: Hypoglycemia Protocol Stop: 12/03/24 19:08 Glucose (Glucose 10 Tab/Tube) 4 - 8 tab PO UD PRN; Protocol PRN Reason: Hypoglycemia Protocol Stop: 12/03/24 19:08 Ceftriaxone Sodium (Rocephin) 2,000 mg in 50 mls @ 100 mls/hr IV Q24H [facility] Stop: 11/19/24 08:29 Insulin Aspart (Insulin Aspart Per Unit Charge) 0 units SC [facility] Stop: 12/03/24 20:59 Last Admin: 11/08/24 20:28 Dose: Not Given Insulin Glargine (Lantus Per Unit Charge) 50 units SC QAM [facility] Stop: 12/07/24 08:59 Last Admin: 11/08/24 09:04 Dose: 50 units Levalbuterol HCl (Levalbuterol 1.25 Mg/3 Ml Neb) 1.25 mg NEB Q6R PRN PRN Reason: Shortness Of Breath Or Wheezing Stop: 12/04/24 15:59 Levothyroxine Sodium (Levothyroxine Sodium 125 Mcg Tablet) 125 mcg PO DAILYBB [facility] Stop: 12/04/24 06:29 Last Admin: 11/09/24 06:28 Dose: 125 mcg Magnesium Oxide (Magnesium Oxide 400 Mg Tab) 400 mg PO HS [facility] Stop: 12/03/24 20:59 Last Admin: 11/08/24 21:11 Dose: 400 mg Miscellaneous (Carbohydrates For Hypoglycemia ) 15 - 30 gm PO UD PRN PRN Reason: Hypoglycemia Protocol Stop: 12/03/24 19:08 Miscellaneous Information (Pharmacist Discharge Med Rec Consult) 1 each N/A UD PRN PRN Reason: Consult Stop: 12/04/24 01:44 Miscellaneous Information (Pharmacy Glycemic Mgmt Consult) 1 each N/A UD PRN; Protocol PRN Reason: Consult Stop: 12/04/24 11:04 Ondansetron HCl (Ondansetron Inj 2 Mg/Ml 2 Ml Vial) 4 mg IV Q6H PRN PRN Reason: Nausea Stop: 12/03/24 19:08 Polyethylene Glycol (Polyethylene (Miralax) 17 Gm Pack) 17 gm PO DAILY PRN PRN Reason: Constipation Stop: 12/03/24 19:08 Simvastatin (Simvastatin 10 Mg Tab) 10 mg PO HS [facility] Stop: 12/03/24 20:59 Last Admin: 11/08/24 21:10 Dose: 10 mg Vitamin D (Cholecalciferol 25 Mcg (1000 Units) Tab) 50 mcg PO QAM [facility] Stop: 12/04/24 08:59 Last Admin: 11/08/24 09:05 Dose: 50 mcg
--- NOTE | 2024-11-09 09:16 | Pharmacy Report ---
Pharmacy Glycemic Short Note 2 - Date of Service November 09, 2024 - Glycemic Short BSG Results (Last 24 hours): 11/08/24 11/08/24 11/08/24 12:27 17:32 20:13 POC Glucose 136 H 91 127 H 11/09/24 08:17 POC Glucose 127 H OUTPATIENT ANTIDIABETIC REGIMEN: * toujeo 82 units daily, novolog SSI ASSESSMENT: 11/08: * LN received 63 units of insulin yesterday * 50 units glargine * 13 units aspart * BSGs within or slightly lower than goal range yesterday will cut back on CR slightly to err on the side of caution * Fasting BSG within goal range this AM, will keep basal insulin the same * T1DM diet ordered 11/06: * Madyson received 82 units of insulin yesterday (65 units basal + 17 units bolus) * Fasting BSG at goal, 109 mg/dL. Although would typically consider this an acceptable fasting BSG, will slightly decrease basal insulin due to concern for recent embolic stroke and hypoglycemia as an outpatient. Will trial ~55 units per day of basal insulin. 11/04: * 69 year old, type 1 diabetic admitted with AMS, hypoglycemia, CVA concerns. Pharmacy consulted for glycemic management. * Known to glycemic from prior admission last month. Per notes, BSGs in 40s at outside facility and concerns for frequent low blood sugars. Plan to reduce basal today 50-60% from outpatient dose for today. Diet started, minimal PO intake at breakfast - better at lunch. PLAN FOR INPATIENT GLYCEMIC CONTROL: * Hold outpatient oral diabetes medications * Basal insulin * Lantus 50 units QAM * Bolus insulin * NovoLog per scale ACHS or Q6hrs while NPO * Goal Range: Low 120 mg/dL - High 160 mg/dL * Correction Factor: 30 mg/dL/unit * Nutritional / Prandial insulin per carb ratio of 1 unit per 11 grams CHO consumed
[2024-11-09] MEDS: ENOXAPARIN INJ 40 MG/0.4 ML SYR SQ SCH (09:30)
[2024-11-09] MEDS: CLOPIDOGREL BISULFATE 75 MG TAB PO SCH (09:30)
[2024-11-09 10:58] LABS: Appearance Urine Turbid (Clear); Bacteria Urine Automated 4+ (None Seen); Bilirubin Urine Negative (Negative); Blood Urine 3+ (Negative); Cast Urine Automated >20 /lpf (0-2); Color Urine Orange; Epithelial Cell Urine Auto 0-2 /hpf (0-2); Glucose Urine UA Negative (Negative); Ketones Urine Trace (Negative); Leukocyte Esterase Urine 3+ (Negative); Nitrite Urine Negative (Negative); Protein Urine 3+ (Negative); RBC Urine Automated >20 /hpf (0-2); Specific Gravity Urine 1.024 (1.000-1.030); Triple Phosphate Crystal Urine Present (None Prsent); Urobilinogen Urine Negative (Negative); WBC Urine Automated >50 /hpf (0-5); pH Urine >= 9.0 (4.5-7.5)
[2024-11-09] MEDS: cefTRIAXone SODIUM 2,000 MG/50 ML BAG IV SCH (10:58)
[2024-11-10 06:23] LABS: Hematocrit (blood only) 37.8 % (37.0-47.0); Hemoglobin 12.5 g/dl (12.0-16.0); Mean Corpuscular Hemoglobin 28.2 pg (25.0-34.0); Mean Corpuscular Hgb Conc 33.1 g/dL (32.0-36.0); Mean Corpuscular Volume 85.3 fL (80.0-100.0); Mean Platelet Volume 9.8 fL (9.4-12.4); Platelet Count 391 K/uL (130-400); RDW Coefficient of Variation 14.8 % (11.5-14.5); RDW Standard Deviation 46.4 fL (36.4-46.3); Red Blood Count 4.43 M/uL (4.20-5.40); White Blood Count 11.08 K/ul (4.8-10.8)
[2024-11-10 06:43] LABS: Anion Gap 5 (3-11); BUN Creatinine Ratio 20.3 (10-20); Blood Urea Nitrogen 15 mg/dl (6-23); Calcium 8.6 mg/dl (8.6-10.3); Carbon Dioxide 26 mmol/L (21-32); Chloride 104 mmol/L (98-107); Creatinine Clr Calc Pharmacy 84.6 ml/min; Glucose 106 mg/dl (70-99(Fasting)); Phosphorus 3.3 mg/dl (2.5-4.9); Sodium 135 mmol/L (136-145)
--- NOTE | 2024-11-10 10:44 | Hospitalist Progress Note ---
Date of Service November 10, 2024 Assessment & Plan (1) Stroke-like symptom: (2) Hypoglycemia: Plan 69 yr old F who has a significant PMH of HTN, HLD, T1DM insulin controlled, hypothyroidism, Morbidly obese, Gerd, Mild Dementia, Depression and insomnia who presents to ED 2/2 altered mental status. Of significant pt was hospitalized 10/09-10/13 after sustaining a fall and R distal fibular fx requiring casting. She was discharged to [facility] rehab. Pt presents with LUE weakness and R facial droop. Head CT, Head/Neck CTA unremarkable. LKW ~ 1100, pt out of window for consideration for TPA. Pt with known hypoglycemia and evidence of recent a1c of 5.9. Feel sx very likely to be related to hypoglycemic event #Acute CVA, left thalamus, bilateral ludwig radiata #Altered Mental status - resolved pt alert and oriented to basics Headaches x 4 weeks 11/04 MRI Brain - Positive acute CVA, left thalamus and bilateral ludwig radiata Echocardiogram: No ASD Telemetry: No A-fib or arrhythmias so far, will need Zio patch Has been on aspirin 81 mg p.o. daily x 1 week -> re-checked - pt has been on ASA 81 BID Add Plavix 75 mg p.o. daily Also already on simvastatin Neurology service consulted On admission pt appeared to be lethargic and weak, may be in setting of Covid- 19, obtained UDS PT/OT will reduce insulin to reduce likelihood of hypoglycemic episodes - discussed w/ glycemic pharmacy 11/08 Neurology recommendations: Recommend to discontinue Plavix continue on aspirin at the current dose of Lovenox. To avoid risk of hemorrhagic conversion. Continue to monitor telemetry rule out paroxysmal atrial fibrillation, the patient is considered high risk given body habitus. She will need a Zio patch upon discharge . Anticoagulation to be considered upon discharge for stroke prevention Remains stable overall Continue aspirin, simvastatin Lovenox SC 40mg decreased to daily in light of hematuria from Rahman- now improved BP within acceptable range so far 11/09 Dr. Ashford discussed with Neurologist Dr. Saldaña over the phone, recommendation: ASA 81mg po daily + Plavix 75mg po daily for 3 weeks, then ASA 81mg po daily only Lovenox 40mg SC daily ok as per pharmacist for DVT Px ---> 11/10 hold lovenox d/t light hematuria noted again Dr Saldaña ok to have Lovenox SC daily along with ASA and Plavix orders placed will need outpatient Ziopatch monitoring #Sars COV-2 relatively asymptomatic, not requiring o2 previous hospitalist discussed remdesivir with given pt high risk and it was decided for forego this treatment at this time Covid precautions ordered Has some mild rhonchi, mildly tachypneic Chest x-ray no pneumonia Xopenex every 6 hours spirometry and flutter valve Mucinex twice daily as well Remains on room air Breath sounds improved Tachypnea resolved repeat CXR no pneumonia Continue nebs 4 times daily #T1DM A1C 5.22 sep 2024, feel pt is too tightly controlled given age and comorbidities reduced insulin by 50% given suspected reduce intake in setting of covid Goal A1C for pt should be 7-8, could be correlating to pts sx as well as YANES over the last few weeks Pharmacy glycemic control management consulted Check A1c A1c 6.3 No hypoglycemia episodes noted Continue to monitor #Hyponatremia - chronic Na 132, hold HCTZ gentle fluid x 500ml repeat bmp in a.m. Na stable #Mild hematuria, UTI ? from Rahman Insertion improving CBC stable UA and ucultx concerning for infection - will repeat UA, Rocephin ordered (discussed w/ RN and previous hospitalist 11/09) Lovenox held 11/08 Urine culture: Pending mild bleeding from Rahman cath: resolved Lovenox SC 40mg BID changed to daily for now-- check with pharmacist #Mild Dementia -at baseline #R fibular fx follows [facility] ortho, NWB, cast in place, had outpt follow up and will follow up again in 4 weeks continue PT/OT DVT ppx: SQ Lovenox-- changed from BID to daily for now, in light of GI bleed, checked with Pharmacist FULL CODE PCP: Dr. Saxena Dispo: from Rehab Admission and Anticipated Discharge Date Admission Date: November 04, 2024 Subjective Pt seen in follow up for acute cva, covid, hypoglycemia episode, etc. Recent hx of fibular fx and s/p surg. repair Pt currently lying in bed, in NAD awake, alert + headache L lower ext weakness about the same breathing is ok, no cough, no chest pain no other symptoms Ucultx - recommends to obtain another UA. Pt has Rahman. Rocephin started. awaiting cultx Update: another ucultx - recommend repeat - discussed with delivery driver of Systems Review of Systems: All systems reviewed & are unremarkable except as noted in Subjective Physical Exam Physical Exam: General- awake, alert, oriented, not in distress Eyes- anicteric Neck- no JVD Lungs- clear breath sounds bilaterally, no rales/wheezes Heart- normal rate, regular rhythm; no murmurs Abdomen- normal bowel sounds, nondistended, soft, nontender Extremities- + RLE cast Neuro- alert, oriented x 3;LLE weakness - but pt able to move (and says it's improved) RLE (+) cast Skin- warm & dry Results & Data Results & Data Vital Signs (Past 12 Hours) Vital Signs Temp Pulse Pulse Resp BP Pulse Ox O2 Del Method 11/10/24 08:30 36.7 C 74 18 143/70 H 95 Room Air 11/10/24 07:04 63 11/10/24 03:40 36.7 C 73 20 151/76 H 96 Room Air 11/09/24 23:29 36.7 C 68 20 153/73 H 93 Room Air Laboratory Results 11/10/24 11/10/24 11/10/24 Range/Units 09:04 08:17 05:23 WBC 11.08 H (4.8-10.8) K/ul RBC 4.43 (4.20-5.40) M/uL Hgb 12.5 (12.0-16.0) g/dl Hct 37.8 (37.0-47.0) % MCV 85.3 (80.0-100.0) fL MCH 28.2 (25.0-34.0) pg MCHC 33.1 (32.0-36.0) g/dL RDW Std Deviation 46.4 H (36.4-46.3) fL RDW Coeff of Rossi 14.8 H (11.5-14.5) % Plt Count 391 (130-400) K/uL MPV 9.8 (9.4-12.4) fL Sodium 135 L (136-145) mmol/L Potassium 3.8 TNP Chloride 104 (98-107) mmol/L Carbon Dioxide 26 (21-32) mmol/L Anion Gap 5 (3-11) BUN 15 (6-23) mg/dl Creatinine 0.74 (0.6-1.2) mg/dl Est Cr Clr Drug Dosing 84.6 ml/min eGFR 87.53 BUN/Creatinine Ratio 20.3 H (10-20) Glucose 106 H (70-99(Fasting)) mg/dl POC Glucose 99 (70-99) mg/dl Calcium 8.6 (8.6-10.3) mg/dl Phosphorus 3.3 (2.5-4.9) mg/dl Magnesium 2.0 (1.7-2.4) mg/dl Urine Color Urine Appearance (Clear) Urine pH (4.5-7.5) Ur Specific [place] (1.000-1.030) Urine Protein (Negative) Urine Glucose (UA) (Negative) Urine Ketones (Negative) Urine Blood (Negative) Urine Nitrite (Negative) Urine Bilirubin (Negative) Urine Urobilinogen (Negative) Ur Leukocyte Esterase (Negative) Urine WBC (Auto) (0-5) /hpf Urine RBC (Auto) (0-2) /hpf U Hyaline Cast (Auto) (0-2) /lpf U Epithel Cells (Auto) (0-2) /hpf Urine Bacteria (Auto) (None Seen) Triple Phos Crystals (None Prsent) 11/09/24 11/09/24 11/09/24 Range/Units Unknown 20:05 17:18 WBC (4.8-10.8) K/ul RBC (4.20-5.40) M/uL Hgb (12.0-16.0) g/dl Hct (37.0-47.0) % MCV (80.0-100.0) fL MCH (25.0-34.0) pg MCHC (32.0-36.0) g/dL RDW Std Deviation (36.4-46.3) fL RDW Coeff of Rossi (11.5-14.5) % Plt Count (130-400) K/uL MPV (9.4-12.4) fL Sodium (136-145) mmol/L Potassium Chloride (98-107) mmol/L Carbon Dioxide (21-32) mmol/L Anion Gap (3-11) BUN (6-23) mg/dl Creatinine (0.6-1.2) mg/dl Est Cr Clr Drug Dosing ml/min eGFR BUN/Creatinine Ratio (10-20) Glucose (70-99(Fasting)) mg/dl POC Glucose 165 H 130 H (70-99) mg/dl Calcium (8.6-10.3) mg/dl Phosphorus (2.5-4.9) mg/dl Magnesium (1.7-2.4) mg/dl Urine Color [place] Urine Appearance Turbid A (Clear) Urine pH >= 9.0 H (4.5-7.5) Ur Specific [place] 1.024 (1.000-1.030) Urine Protein 3+ H (Negative) Urine Glucose (UA) Negative (Negative) Urine Ketones Trace H (Negative) Urine Blood 3+ H (Negative) Urine Nitrite Negative (Negative) Urine Bilirubin Negative (Negative) Urine Urobilinogen Negative (Negative) Ur Leukocyte Esterase 3+ H (Negative) Urine WBC (Auto) >50 H (0-5) /hpf Urine RBC (Auto) >20 H (0-2) /hpf U Hyaline Cast (Auto) >20 H (0-2) /lpf U Epithel Cells (Auto) 0-2 (0-2) /hpf Urine Bacteria (Auto) 4+ H (None Seen) Triple Phos Crystals Present A (None Prsent) 11/09/24 Range/Units 12:12 WBC (4.8-10.8) K/ul RBC (4.20-5.40) M/uL Hgb (12.0-16.0) g/dl Hct (37.0-47.0) % MCV (80.0-100.0) fL MCH (25.0-34.0) pg MCHC (32.0-36.0) g/dL RDW Std Deviation (36.4-46.3) fL RDW Coeff of Rossi (11.5-14.5) % Plt Count (130-400) K/uL MPV (9.4-12.4) fL Sodium (136-145) mmol/L Potassium Chloride (98-107) mmol/L Carbon Dioxide (21-32) mmol/L Anion Gap (3-11) BUN (6-23) mg/dl Creatinine (0.6-1.2) mg/dl Est Cr Clr Drug Dosing ml/min eGFR BUN/Creatinine Ratio (10-20) Glucose (70-99(Fasting)) mg/dl POC Glucose 147 H (70-99) mg/dl Calcium (8.6-10.3) mg/dl Phosphorus (2.5-4.9) mg/dl Magnesium (1.7-2.4) mg/dl Urine Color Urine Appearance (Clear) Urine pH (4.5-7.5) Ur Specific [place] (1.000-1.030) Urine Protein (Negative) Urine Glucose (UA) (Negative) Urine Ketones (Negative) Urine Blood (Negative) Urine Nitrite (Negative) Urine Bilirubin (Negative) Urine Urobilinogen (Negative) Ur Leukocyte Esterase (Negative) Urine WBC (Auto) (0-5) /hpf Urine RBC (Auto) (0-2) /hpf U Hyaline Cast (Auto) (0-2) /lpf U Epithel Cells (Auto) (0-2) /hpf Urine Bacteria (Auto) (None Seen) Triple Phos Crystals (None Prsent) Medications Administered Current Inpatient Medications Acetaminophen (Acetaminophen 325 Mg Tab) 650 mg PO Q4H PRN PRN Reason: Pain or Fever Stop: 12/03/24 19:08 Last Admin: 11/10/24 08:06 Dose: 650 mg Aspirin (Aspirin 81 Mg Ectab) 81 mg PO DAILY [facility] Stop: 12/04/24 08:59 Last Admin: 11/10/24 08:00 Dose: 81 mg Cholestyramine Resin (Cholestyramine Light 4 Gm Pkt) 4 gm PO QAM CLAUDIA Stop: 12/04/24 08:59 Last Admin: 11/10/24 08:09 Dose: 4 gm Clopidogrel Bisulfate (Clopidogrel Bisulfate 75 Mg Tab) 75 mg PO QAM CLAUDIA Stop: 11/30/24 08:59 Last Admin: 11/10/24 08:05 Dose: 75 mg Dextrose (Dextrose 50% 50 Ml Syringe) 25 - 50 ml IV UD PRN; Protocol PRN Reason: Hypoglycemia Protocol Stop: 12/03/24 19:08 Enoxaparin Sodium (Enoxaparin Inj 40 Mg/0.4 Ml Syr) 40 mg SQ Q24H [facility] Stop: 12/09/24 08:14 Last Admin: 11/10/24 08:06 Dose: 40 mg Famotidine (Famotidine 20 Mg Tab) 20 mg PO DAILY PRN PRN Reason: Heartburn Stop: 12/03/24 19:08 Last Admin: 11/08/24 09:05 Dose: 20 mg Fluoxetine HCl (Fluoxetine Hcl 20 Mg Cap) 20 mg PO BID [facility] Stop: 12/03/24 20:59 Last Admin: 11/10/24 08:05 Dose: 20 mg Folic Acid (Folic Acid 1 Mg Tab) 1 mg PO QAM [facility] Stop: 12/04/24 08:59 Last Admin: 11/10/24 08:05 Dose: 1 mg Glucagon (Glucagon For Inj 1 Mg Vial) 1 mg SQ UD PRN; Protocol PRN Reason: Hypoglycemia Protocol Stop: 12/03/24 19:08 Glucose (Glucose 40% Gel 15 Gm Tube) 15 - 30 gm PO UD PRN; Protocol PRN Reason: Hypoglycemia Protocol Stop: 12/03/24 19:08 Glucose (Glucose 10 Tab/Tube) 4 - 8 tab PO UD PRN; Protocol PRN Reason: Hypoglycemia Protocol Stop: 12/03/24 19:08 Ceftriaxone Sodium (Rocephin) 2,000 mg in 50 mls @ 100 mls/hr IV Q24H [facility] Stop: 11/19/24 08:29 Last Admin: 11/10/24 09:46 Dose: 50 mls/hr Insulin Aspart (Insulin Aspart Per Unit Charge) 0 units SC ACHS [facility] Stop: 12/03/24 20:59 Last Admin: 11/10/24 09:45 Dose: 1 units Insulin Glargine (Lantus Per Unit Charge) 50 units SC QAM [facility] Stop: 12/07/24 08:59 Last Admin: 11/10/24 09:45 Dose: 50 units Levalbuterol HCl (Levalbuterol 1.25 Mg/3 Ml Neb) 1.25 mg NEB Q6R PRN PRN Reason: Shortness Of Breath Or Wheezing Stop: 12/04/24 15:59 Levothyroxine Sodium (Levothyroxine Sodium 125 Mcg Tablet) 125 mcg PO DAILYBB [facility] Stop: 12/04/24 06:29 Last Admin: 11/10/24 06:02 Dose: 125 mcg Magnesium Oxide (Magnesium Oxide 400 Mg Tab) 400 mg PO HS [facility] Stop: 12/03/24 20:59 Last Admin: 11/09/24 20:36 Dose: 400 mg Miconazole Nitrate (Miconazole Nitrate Powder 85 Gm) 1 appln EXT PRN PRN PRN Reason: Affected Skin Folds Stop: 12/10/24 00:13 Miscellaneous (Carbohydrates For Hypoglycemia ) 15 - 30 gm PO UD PRN PRN Reason: Hypoglycemia Protocol Stop: 12/03/24 19:08 Miscellaneous Information (Pharmacist Discharge Med Rec Consult) 1 each N/A UD PRN PRN Reason: Consult Stop: 12/04/24 01:44 Miscellaneous Information (Pharmacy Glycemic Mgmt Consult) 1 each N/A UD PRN; Protocol PRN Reason: Consult Stop: 12/04/24 11:04 Ondansetron HCl (Ondansetron Inj 2 Mg/Ml 2 Ml Vial) 4 mg IV Q6H PRN PRN Reason: Nausea Stop: 12/03/24 19:08 Polyethylene Glycol (Polyethylene (Miralax) 17 Gm Pack) 17 gm PO DAILY PRN PRN Reason: Constipation Stop: 12/03/24 19:08 Simvastatin (Simvastatin 10 Mg Tab) 10 mg PO HS [facility] Stop: 12/03/24 20:59 Last Admin: 11/09/24 20:37 Dose: 10 mg Vitamin D (Cholecalciferol 25 Mcg (1000 Units) Tab) 50 mcg PO QAM [facility] Stop: 12/04/24 08:59 Last Admin: 11/10/24 08:05 Dose: 50 mcg
--- NOTE | 2024-11-10 11:57 | CT Scan Report ---
CT head/brain wo con CLINICAL HISTORY: 69 years-old Female with YANES recent hx of CVA. Acute headache in a patient with rec ent infarcts TECHNIQUE: Multiple axial CT images of the head were obtained without contrast. A dose lowering tech nique was utilized adhering to the principles of ALARA. CT DOSE: 547.75 mGy.cm COMPARISON: Brain MRI 11/04/2024 FINDINGS: No acute intracranial hemorrhage, midline shift, intracranial mass, hydrocephalus, territorial ischem ia or abnormal extra-axial collection. Involutional changes with chronic microvascular ischemic disea se. The small acute infarcts seen on prior MRI are not well evaluated by CT. The calvarium is intact. Mild mucosal thickening of the ethmoid air cells. Mastoid air cells are simone ar. IMPRESSION: 1. No acute intracranial hemorrhage, midline shift or acute territorial infarct. 2. Small acute infarcts better seen on the 11/04/2024 brain MRI. ACT 112: Negative or not required by law. The above report was generated using voice recognition software. It may contain grammatical, syntax o r spelling errors. Electronically signed by: Joaquin Arthur M.D. 11/10/2024 11:55 AM
[2024-11-10 19:04] LABS: Appearance Urine Turbid (Clear); Bacteria Urine Automated 1+ (None Seen); Bilirubin Urine Negative (Negative); Blood Urine 3+ (Negative); Color Urine Orange; Epithelial Cell Urine Auto 0-2 /hpf (0-2); Glucose Urine UA Negative (Negative); Ketones Urine Trace (Negative); Leukocyte Esterase Urine 3+ (Negative); Nitrite Urine Negative (Negative); Protein Urine 1+ (Negative); RBC Urine Automated >20 /hpf (0-2); Specific Gravity Urine 1.025 (1.000-1.030); Urobilinogen Urine Negative (Negative); WBC Urine Automated >50 /hpf (0-5); pH Urine 5.5 (4.5-7.5)
[2024-11-10] MEDS: MICONAZOLE NITRATE POWDER 85 GM EXT PRN (20:19)
[2024-11-11] MEDS: oxyCODONE HCL IR 5 MG TAB (IMMEDIATE RELEASE) PO STA (00:02)
[2024-11-11 07:15] LABS: Hematocrit (blood only) 37.7 % (37.0-47.0); Hemoglobin 12.5 g/dl (12.0-16.0); Mean Corpuscular Hemoglobin 27.9 pg (25.0-34.0); Mean Corpuscular Hgb Conc 33.2 g/dL (32.0-36.0); Mean Corpuscular Volume 84.2 fL (80.0-100.0); Mean Platelet Volume 9.5 fL (9.4-12.4); Platelet Count 382 K/uL (130-400); RDW Coefficient of Variation 15.3 % (11.5-14.5); RDW Standard Deviation 45.9 fL (36.4-46.3); Red Blood Count 4.48 M/uL (4.20-5.40); White Blood Count 10.88 K/ul (4.8-10.8)
[2024-11-11 07:45] LABS: BUN Creatinine Ratio 23.6 (10-20); Calcium 8.6 mg/dl (8.6-10.3); Creatinine Clr Calc Pharmacy 114.7 ml/min; Magnesium 1.9 mg/dl (1.7-2.4); Phosphorus 3.3 mg/dl (2.5-4.9); Potassium 3.6 mmol/L (3.5-5.1)
[2024-11-11] MEDS: hydroCHLOROthiazide 25 MG TAB PO SCH (09:37)
--- NOTE | 2024-11-11 10:08 | Pharmacy Report ---
Pharmacy Glycemic Short Note 2 - Date of Service November 11, 2024 - Glycemic Short BSG Results (Last 24 hours): 11/10/24 11/10/24 11/10/24 12:14 17:08 20:05 Glucose POC Glucose 155 H 140 H 148 H 11/10/24 11/11/24 11/11/24 20:30 06:48 08:48 Glucose 97 POC Glucose 152 H 105 H OUTPATIENT ANTIDIABETIC REGIMEN: * toujeo 82 units daily, novolog SSI ASSESSMENT: 11/11: * Patient received 71 units of insulin yesterday, 50 of which were basal. BSGs were: [phone] mg/dL. * Fasting BSG this AM remains controlled at 105 mg/dL. Patient remains on Ceftriaxone. * No changes to insulin regimen necessary. 11/09: * LN received 63 units of insulin yesterday * 50 units glargine * 13 units aspart * BSGs within or slightly lower than goal range yesterday will cut back on CR slightly to err on the side of caution * Fasting BSG within goal range this AM, will keep basal insulin the same * T1DM diet ordered 11/06: * Madyson received 82 units of insulin yesterday (65 units basal + 17 units bolus) * Fasting BSG at goal, 109 mg/dL. Although would typically consider this an acceptable fasting BSG, will slightly decrease basal insulin due to concern fo r recent embolic stroke and hypoglycemia as an outpatient. Will trial ~55 units per day of basal insulin. 11/04: * 69 year old, type 1 diabetic admitted with AMS, hypoglycemia, CVA concerns. Pharmacy consulted for glycemic management. * Known to glycemic from prior admission last month. Per notes, BSGs in 40s at outside facility and concerns for frequent low blood sugars. Plan to reduce basal today 50-60% from outpatient dose for today. Diet started, minimal PO intake at breakfast - better at lunch. PLAN FOR INPATIENT GLYCEMIC CONTROL: * Hold outpatient oral diabetes medications * Basal insulin * Lantus 50 units SC AM * Bolus insulin * NovoLog per scale ACHS or Q6hrs while NPO * Goal Range: Low 120 mg/dL - High 160 mg/dL * Correction Factor: 30 mg/dL/unit * Nutritional / Prandial insulin per carb ratio of 1 unit per 11 grams CHO consumed
--- NOTE | 2024-11-11 10:22 | Hospitalist Progress Note ---
Date of Service November 11, 2024 Assessment & Plan (1) Stroke-like symptom: (2) Hypoglycemia: Plan 69 yr old F who has a significant PMH of HTN, HLD, T1DM insulin controlled, hypothyroidism, Morbidly obese, Gerd, Mild Dementia, Depression and insomnia who presents to ED 2/2 altered mental status. Of significant pt was hospitalized 10/09-10/13 after sustaining a fall and R distal fibular fx requiring casting. She was discharged to [facility]. Pt presents with LUE weakness and R facial droop. Head CT, Head/Neck CTA unremarkable. LKW ~ 1100, pt out of window for consideration for TPA. Pt with known hypoglycemia and evidence of recent a1c of 5.9. Feel sx very likely to be related to hypoglycemic event #Acute CVA, left thalamus, bilateral ludwig radiata #Altered Mental status - resolved pt alert and oriented to basics Headaches x 4 weeks 11/04 MRI Brain - Positive acute CVA, left thalamus and bilateral ludwig radiata Echocardiogram: No ASD Telemetry: No A-fib or arrhythmias so far, will need Zio patch Has been on aspirin 81 mg p.o. daily x 1 week -> re-checked - pt has been on ASA 81 BID (for hx of fib. fx) Added Plavix 75 mg p.o. daily to daily ASA 81 Also already on simvastatin Neurology service consulted On admission pt appeared to be lethargic and weak, may be in setting of Covid- 19, obtained UDS Reduced insulin to reduce likelihood of hypoglycemic episodes -> discussed w/ glycemic pharmacy on 11/10 about current doses 11/08 Neurology recommendations: Recommend to discontinue Plavix continue on aspirin at the current dose of Lovenox. To avoid risk of hemorrhagic conversion. Continue to monitor telemetry rule out paroxysmal atrial fibrillation, the patient is considered high risk given body habitus. She will need a Zio patch upon discharge . Anticoagulation to be considered upon discharge for stroke prevention Remains stable overall Continue aspirin, simvastatin Lovenox SC 40mg decreased to daily in light of hematuria from Rahman- now improved BP within acceptable range so far 11/09 Dr. Ashford discussed with Neurologist Dr. Saldaña over the phone, recommendation: ASA 81mg po daily + Plavix 75mg po daily for 3 weeks, then ASA 81mg po daily only Lovenox 40mg SC daily ok as per pharmacist for DVT Px ---> 11/10 hold lovenox d/t light hematuria noted again, resume Dr Saldaña ok to have Lovenox SC daily along with ASA and Plavix orders placed will need outpatient Ziopatch monitoring #Sars COV-2 relatively asymptomatic, not requiring o2 previous hospitalist discussed remdesivir with given pt high risk and it was decided for forego this treatment at this time Covid precautions ordered Has some mild rhonchi, mildly tachypneic Chest x-ray no pneumonia Xopenex every 6 hours spirometry and flutter valve Mucinex twice daily as well Remains on room air Breath sounds improved Tachypnea resolved repeat CXR no pneumonia Continue nebs 4 times daily #T1DM A1C 5.22 sep 2024, feel pt is too tightly controlled given age and comorbidities reduced insulin by 50% given suspected reduce intake in setting of covid Goal A1C for pt should be 7-8, could be correlating to pts sx as well as YANES over the last few weeks Pharmacy glycemic control management consulted Check A1c A1c 6.3 No hypoglycemia episodes noted Continue to monitor Discussed w/ glycemic pharmacy on 11/10 about current doses Glargine down to 50 units daily She does use Novolog at high doses which we have decreased significantly. I would discharge her with a low dose sliding scale such as: Blood Sugar 70-150, administer 0 units Blood Sugar 151-200, administer 1 units Blood Sugar 201-250, administer 3 units Blood Sugar 251-300, administer 5 units Blood Sugar 301-350, administer 7 units Blood Sugar 351-400, administer 9 units Blood Sugar >400, administer 11 units and call MD #Hyponatremia - chronic Na 132, hold HCTZ gentle fluid x 500ml repeat bmp in a.m. Na stable #Mild hematuria, UTI ? from Rahman Insertion improving CBC stable UA and ucultx concerning for infection - will repeat UA, Rocephin ordered (discussed w/ RN and previous hospitalist 11/09) Lovenox held - resume 11/08 Urine culture: Pending mild bleeding from Rahman cath: resolved Lovenox SC 40mg BID changed to daily for now-- checked with pharmacist #Mild Dementia -at baseline #R fibular fx follows [facility], NWB, cast in place, had outpt follow up and will follow up again in 4 weeks continue PT/OT DVT ppx: SQ Lovenox-- changed from BID to daily for now, in light of GI bleed, checked with Pharmacist FULL CODE PCP: Dr. Saxena Dispo: from Rehab Admission and Anticipated Discharge Date Admission Date: November 04, 2024 Subjective Pt seen in follow up for acute cva, covid, hypoglycemia episode, etc. Recent hx of fibular fx and s/p surg. repair Pt currently lying in bed, in NAD awake, alert eating breakfast, says she is tired of being in bed L lower ext weakness about the same, but able to move, lift off the bed breathing is ok, some cough, no chest pain no other symptoms Ucultx - recommends to obtain another UA. Pt has Rahman. awaiting cultx. currently on Rocephin Discussed with RN at the bedside encouraged and worked with IS, flutter valve Review of Systems Review of Systems: All systems reviewed & are unremarkable except as noted in Subjective Physical Exam Physical Exam: General- awake, alert, oriented, not in distress Eyes- anicteric Neck- no JVD Lungs- breath sounds decreased bilaterally, no rales/wheezes Heart- normal rate, regular rhythm; no murmurs Abdomen- normal bowel sounds, nondistended, soft, nontender Extremities- + RLE cast Neuro- alert, oriented x 3;LLE weakness - but pt able to move (and says it's improved) RLE (+) cast Skin- warm & dry Results & Data Results & Data Vital Signs (Past 12 Hours) Vital Signs Temp Pulse Pulse Resp BP Pulse Ox O2 Del Method 11/11/24 08:00 36.7 C 76 16 160/70 H 96 Room Air 11/11/24 07:00 67 11/11/24 04:00 36.7 C 72 18 145/72 H 94 Room Air 11/11/24 00:00 36.9 C 68 18 138/69 95 Room Air 11/10/24 23:46 Room Air Laboratory Results 11/11/24 11/11/24 11/10/24 Range/Units 08:48 06:48 Unknown WBC 10.88 H (4.8-10.8) K/ul RBC 4.48 (4.20-5.40) M/uL Hgb 12.5 (12.0-16.0) g/dl Hct 37.7 (37.0-47.0) % MCV 84.2 (80.0-100.0) fL MCH 27.9 (25.0-34.0) pg MCHC 33.2 (32.0-36.0) g/dL RDW Std Deviation 45.9 (36.4-46.3) fL RDW Coeff of Rossi 15.3 H (11.5-14.5) % Plt Count 382 (130-400) K/uL MPV 9.5 (9.4-12.4) fL Sodium 136 (136-145) mmol/L Potassium 3.6 (3.5-5.1) mmol/L Chloride 103 (98-107) mmol/L Carbon Dioxide 25 (21-32) mmol/L Anion Gap 8 (3-11) BUN 13 (6-23) mg/dl Creatinine 0.55 L (0.6-1.2) mg/dl Est Cr Clr Drug Dosing 114.7 ml/min eGFR 99.16 BUN/Creatinine Ratio 23.6 H (10-20) Glucose 97 (70-99(Fasting)) mg/dl POC Glucose 105 H (70-99) mg/dl Calcium 8.6 (8.6-10.3) mg/dl Phosphorus 3.3 (2.5-4.9) mg/dl Magnesium 1.9 (1.7-2.4) mg/dl Urine Color Quay Urine Appearance Turbid A (Clear) Urine pH 5.5 (4.5-7.5) Ur Specific [place] 1.025 (1.000-1.030) Urine Protein 1+ H (Negative) Urine Glucose (UA) Negative (Negative) Urine Ketones Trace H (Negative) Urine Blood 3+ H (Negative) Urine Nitrite Negative (Negative) Urine Bilirubin Negative (Negative) Urine Urobilinogen Negative (Negative) Ur Leukocyte Esterase 3+ H (Negative) Urine WBC (Auto) >50 H (0-5) /hpf Urine RBC (Auto) >20 H (0-2) /hpf U Hyaline Cast (Auto) 3-5 H (0-2) /lpf U Epithel Cells (Auto) 0-2 (0-2) /hpf Urine Bacteria (Auto) 1+ H (None Seen) 11/10/24 11/10/24 11/10/24 Range/Units 20:30 20:05 17:08 WBC (4.8-10.8) K/ul RBC (4.20-5.40) M/uL Hgb (12.0-16.0) g/dl Hct (37.0-47.0) % MCV (80.0-100.0) fL MCH (25.0-34.0) pg MCHC (32.0-36.0) g/dL RDW Std Deviation (36.4-46.3) fL RDW Coeff of Rossi (11.5-14.5) % Plt Count (130-400) K/uL MPV (9.4-12.4) fL Sodium (136-145) mmol/L Potassium (3.5-5.1) mmol/L Chloride (98-107) mmol/L Carbon Dioxide (21-32) mmol/L Anion Gap (3-11) BUN (6-23) mg/dl Creatinine (0.6-1.2) mg/dl Est Cr Clr Drug Dosing ml/min eGFR BUN/Creatinine Ratio (10-20) Glucose (70-99(Fasting)) mg/dl POC Glucose 152 H 148 H 140 H (70-99) mg/dl Calcium (8.6-10.3) mg/dl Phosphorus (2.5-4.9) mg/dl Magnesium (1.7-2.4) mg/dl Urine Color Urine Appearance (Clear) Urine pH (4.5-7.5) Ur Specific [place] (1.000-1.030) Urine Protein (Negative) Urine Glucose (UA) (Negative) Urine Ketones (Negative) Urine Blood (Negative) Urine Nitrite (Negative) Urine Bilirubin (Negative) Urine Urobilinogen (Negative) Ur Leukocyte Esterase (Negative) Urine WBC (Auto) (0-5) /hpf Urine RBC (Auto) (0-2) /hpf U Hyaline Cast (Auto) (0-2) /lpf U Epithel Cells (Auto) (0-2) /hpf Urine Bacteria (Auto) (None Seen) 11/10/24 Range/Units 12:14 WBC (4.8-10.8) K/ul RBC (4.20-5.40) M/uL Hgb (12.0-16.0) g/dl Hct (37.0-47.0) % MCV (80.0-100.0) fL MCH (25.0-34.0) pg MCHC (32.0-36.0) g/dL RDW Std Deviation (36.4-46.3) fL RDW Coeff of Rossi (11.5-14.5) % Plt Count (130-400) K/uL MPV (9.4-12.4) fL Sodium (136-145) mmol/L Potassium (3.5-5.1) mmol/L Chloride (98-107) mmol/L Carbon Dioxide (21-32) mmol/L Anion Gap (3-11) BUN (6-23) mg/dl Creatinine (0.6-1.2) mg/dl Est Cr Clr Drug Dosing ml/min eGFR BUN/Creatinine Ratio (10-20) Glucose (70-99(Fasting)) mg/dl POC Glucose 155 H (70-99) mg/dl Calcium (8.6-10.3) mg/dl Phosphorus (2.5-4.9) mg/dl Magnesium (1.7-2.4) mg/dl Urine Color Urine Appearance (Clear) Urine pH (4.5-7.5) Ur Specific [place] (1.000-1.030) Urine Protein (Negative) Urine Glucose (UA) (Negative) Urine Ketones (Negative) Urine Blood (Negative) Urine Nitrite (Negative) Urine Bilirubin (Negative) Urine Urobilinogen (Negative) Ur Leukocyte Esterase (Negative) Urine WBC (Auto) (0-5) /hpf Urine RBC (Auto) (0-2) /hpf U Hyaline Cast (Auto) (0-2) /lpf U Epithel Cells (Auto) (0-2) /hpf Urine Bacteria (Auto) (None Seen) Medications Administered Current Inpatient Medications Acetaminophen (Acetaminophen 325 Mg Tab) 650 mg PO Q4H PRN PRN Reason: Pain or Fever Stop: 12/03/24 19:08 Last Admin: 11/10/24 20:18 Dose: 650 mg Aspirin (Aspirin 81 Mg Ectab) 81 mg PO DAILY [facility] Stop: 12/04/24 08:59 Last Admin: 11/11/24 09:36 Dose: 81 mg Cholestyramine Resin (Cholestyramine Light 4 Gm Pkt) 4 gm PO QAM [facility] Stop: 12/04/24 08:59 Last Admin: 11/11/24 09:37 Dose: 4 gm Clopidogrel Bisulfate (Clopidogrel Bisulfate 75 Mg Tab) 75 mg PO QAM [facility] Stop: 11/30/24 08:59 Last Admin: 11/11/24 09:36 Dose: 75 mg Dextrose (Dextrose 50% 50 Ml Syringe) 25 - 50 ml IV UD PRN; Protocol PRN Reason: Hypoglycemia Protocol Stop: 12/03/24 19:08 Enoxaparin Sodium (Enoxaparin Inj 40 Mg/0.4 Ml Syr) 40 mg SQ Q24H [facility] Stop: 12/09/24 08:14 Last Admin: 11/10/24 08:06 Dose: 40 mg Famotidine (Famotidine 20 Mg Tab) 20 mg PO DAILY PRN PRN Reason: Heartburn Stop: 12/03/24 19:08 Last Admin: 11/08/24 09:05 Dose: 20 mg Fluoxetine HCl (Fluoxetine Hcl 20 Mg Cap) 20 mg PO BID [facility] Stop: 12/03/24 20:59 Last Admin: 11/11/24 09:36 Dose: 20 mg Folic Acid (Folic Acid 1 Mg Tab) [facility] [place] Stop: 12/04/24 08:59 Last Admin: 11/11/24 09:36 Dose: 1 mg Glucagon (Glucagon For Inj 1 Mg Vial) 1 mg SQ UD PRN; Protocol PRN Reason: Hypoglycemia Protocol Stop: 12/03/24 19:08 Glucose (Glucose 40% Gel 15 Gm Tube) 15 - 30 gm PO UD PRN; Protocol PRN Reason: Hypoglycemia Protocol Stop: 12/03/24 19:08 Glucose (Glucose 10 Tab/Tube) 4 - 8 tab PO UD PRN; Protocol PRN Reason: Hypoglycemia Protocol Stop: 12/03/24 19:08 Hydrochlorothiazide (Hydrochlorothiazide 25 Mg Tab) 12.5 [facility] [place] Stop: 12/11/24 09:29 Last Admin: 11/11/24 09:37 Dose: 12.5 mg Ceftriaxone Sodium (Rocephin) 2,000 mg in 50 mls @ 100 mls/hr IV Q24H [facility] Stop: 11/19/24 08:29 Last Infusion: 11/11/24 10:13 Dose: Infused Insulin Aspart (Insulin Aspart Per Unit Charge) 0 units SC ACHS [facility] Stop: 12/03/24 20:59 Last Admin: 11/11/24 10:10 Dose: 7 units Insulin Glargine (Lantus Per Unit Charge) 50 units SC QAM [facility] Stop: 12/07/24 08:59 Last Admin: 11/11/24 10:09 Dose: 50 units Levalbuterol HCl (Levalbuterol 1.25 Mg/3 Ml Neb) 1.25 mg NEB Q6R PRN PRN Reason: Shortness Of Breath Or Wheezing Stop: 12/04/24 15:59 Levothyroxine Sodium (Levothyroxine Sodium 125 Mcg Tablet) 125 mcg PO DAILYBB [facility] Stop: 12/04/24 06:29 Last Admin: 11/11/24 06:24 Dose: 125 mcg Magnesium Oxide (Magnesium Oxide 400 Mg Tab) 400 mg PO HS [facility] Stop: 12/03/24 20:59 Last Admin: 11/10/24 20:17 Dose: 400 mg Miconazole Nitrate (Miconazole Nitrate Powder 85 Gm) 1 appln EXT PRN PRN PRN Reason: Affected Skin Folds Stop: 12/10/24 00:13 Last Admin: 11/10/24 20:19 Dose: 1 appln Miscellaneous (Carbohydrates For Hypoglycemia ) 15 - 30 gm PO UD PRN PRN Reason: Hypoglycemia Protocol Stop: 12/03/24 19:08 Miscellaneous Information (Pharmacist Discharge Med Rec Consult) 1 each N/A UD PRN PRN Reason: Consult Stop: 12/04/24 01:44 Miscellaneous Information (Pharmacy Glycemic Mgmt Consult) 1 each N/A UD PRN; Protocol PRN Reason: Consult Stop: 12/04/24 11:04 Ondansetron HCl (Ondansetron Inj 2 Mg/Ml 2 Ml Vial) 4 mg IV Q6H PRN PRN Reason: Nausea Stop: 12/03/24 19:08 Polyethylene Glycol (Polyethylene (Miralax) 17 Gm Pack) 17 gm PO DAILY PRN PRN Reason: Constipation Stop: 12/03/24 19:08 Simvastatin (Simvastatin 10 Mg Tab) 10 mg PO [facility] Stop: 12/03/24 20:59 Last Admin: 11/10/24 20:17 Dose: 10 mg Vitamin D (Cholecalciferol 25 Mcg (1000 Units) Tab) 50 mcg PO QAM [facility] Stop: 12/04/24 08:59 Last Admin: 11/11/24 09:36 Dose: 50 mcg
[2024-11-11] MEDS: SODIUM CHLORIDE 0.9% 500 ML IV ONE (10:44)
[2024-11-12 10:03] LABS: Hematocrit (blood only) 38.6 % (37.0-47.0); Hemoglobin 12.8 g/dl (12.0-16.0); Mean Corpuscular Hemoglobin 27.8 pg (25.0-34.0); Mean Corpuscular Hgb Conc 33.2 g/dL (32.0-36.0); Mean Corpuscular Volume 83.9 fL (80.0-100.0); Mean Platelet Volume 9.7 fL (9.4-12.4); Platelet Count 407 K/uL (130-400); RDW Coefficient of Variation 15.4 % (11.5-14.5); RDW Standard Deviation 46.5 fL (36.4-46.3); White Blood Count 11.25 K/ul (4.8-10.8)
[2024-11-12 10:26] LABS: BUN Creatinine Ratio 17.2 (10-20); Calcium 8.9 mg/dl (8.6-10.3); Creatinine Clr Calc Pharmacy 98.1 ml/min; Magnesium 1.8 mg/dl (1.7-2.4); Potassium 3.7 mmol/L (3.5-5.1)
[2024-11-12 11:32] VITALS: BP 163/80; PULSE 89; RESP 18; TEMP 98.8; O2SAT 93
--- NOTE | 2024-11-12 13:50 | Discharge Summary ---
Date of Service November 12, 2024 Admission HPI Per Admitting Provider This is a 69 yr old F who has a significant PMH of HTN, HLD, T1DM insulin controlled, hypothyroidism, Morbidly obese, Gerd, Mild Dementia, Depression and insomnia who presents to ED 2/2 altered mental status. Of significant pt was hospitalized 10/09-10/13 after sustaining a fall and R distal fibular fx requiring casting. She was discharged to [facility] rehab. is at bedside who helps elicit history. He states she had been doing well with therapy and he was anticipating she would be coming home soon. He states she has been having severe YANES for the last 4 weeks and they have been mostly frontal. He states over the last few days he noted her left side to be more weak and then today he noted her R side of her face was drooping. He alerted the PA at the SNF who recommended ED evaluation. Pt was a stroke alert. LKW was approx 11 a.m.; however uncertain given the timing of the L sided weakness being a few days ago. It is notable that pts BSG was in the 40s around time of sx onset and felt she was confused. Her sx improved with improved BSG but she still is lethargic, "like she is drugged." He reports pt was taking oxycodone and he told the correction to stop giving this to her as it was making her loopy. follows her BSG on his phone and he states that he often has to call [facility] to give her something as her bsg is going below 70s. Pt answers questions approp. She complains of headache and states its 5/10 currently. Denies f/c/s, chest pain, sob, cough, n/v/d. She denies visual changes or change in bowel and bladder. Initial work up head ct and CTAS were negative. SHe is being admitted for further work up, but initially it is felt this may be 2/2 hypoglycemia on top of testing + for Sars COV2. Admission Exam Per Admitting Provider Constitutional: Obese, F, lying in bed, alert and answers questions approp, but is drowsy and falls asleep easily. vitals as above, NAD Head: Normocephalic, Atraumatic Eyes: PERRL, conjunctivae normal, anicteric sclerae ENMT: external ear and nose normal, oropharynx normal Neck: trachea midline, no thyromegaly normal visual inspection Respiratory: normal respiratory effort, lungs clear to auscultation, no wheeze, rales, rhonchi. Normal insp/exp effort, no accessory muscle use Cardiovascular: RRR, no murmur, no edema Vessels: no JVD or carotid bruit Chest: normal inspection of chest Abdomen: obese, normal bowel sounds, soft, nontender, no hepatosplenomegaly Musculoskeletal: no cyanosis or clubbing, LUE weakness 4/5, AROM x 4, RLE cast, NVI distally Skin: no rashes, warm and dry normal turgor Neurologic: PERRL, EOMI, accommodation nl, + R sided facial droop, no dysarthria CN's II-XI intact bilaterally and moves all extremities Psychiatric: A+Ox3 to basics, euthymic affect Lymphatic: no cervical or axillary lymphadenopathy : deluca with clear yellow urine noted Principal Diagnosis Acute CVA UTI + Covid Discharge Exam General- awake, alert, oriented, not in distress Eyes- anicteric Neck- no JVD Lungs- breath sounds decreased bilaterally, no rales/wheezes Heart- normal rate, regular rhythm; no murmurs Abdomen- normal bowel sounds, nondistended, soft, nontender Extremities- + RLE cast Neuro- alert, oriented x 3;LLE weakness - but pt able to move (and says it's improved) RLE (+) cast Skin- warm & dry Discharge Data Allergies Allergy/AdvReac Type Severity Reaction Status Date / Time dextromethorphan Allergy Severe nyquil -> Verified 11/03/24 16:09 Difficulty Breathing doxylamine Allergy Severe nyquil -> Verified 11/03/24 16:09 Difficulty Breathing pseudoephedrine Allergy Severe nyquil -> Verified 11/03/24 16:09 Difficulty Breathing glyburide Allergy Intermediate RASH - pt Verified 11/03/24 16:09 and denies tetanus toxoid, adsorbed Allergy Intermediate painful Verified 11/03/24 16:09 joints aspartame Allergy Incontinenc Verified 11/03/24 16:09 e phenylalanine Allergy Incontinenc Verified 10/13/24 13:13 e stevioside [From Stevia] Allergy Incontinenc Verified 11/03/24 16:09 e sucralose Allergy Incontinenc Verified 11/03/24 16:09 [From Splenda (sucralose)] e vasquez pepper AdvReac Gastrointestinal Verified 11/03/24 16:09 Upset black pepper AdvReac Gastrointestinal Verified 11/03/24 16:09 Upset Ethanol Allergy Severe nyquil -> Uncoded 11/03/24 16:09 Difficulty Breathing Consultations 11/03/24 17:16 ED Decision to Admit Stat 11/04/24 01:45 Consult Neurology Routine Ordered Studies 11/03/24 14:44 CT angio head w con Stat FINDINGS: The M1 and A1 segments are symmetrical bilaterally. There is no evidence of occlusive disease or significant narrowing. The basilar artery is somewhat diminutive and this may be associated with pronounced contribution of the posterior cerebral arteries by the posterior communicating arteries bilaterally. There are calcifications in the carotid siphons. IMPRESSION: No occlusive disease or significant intracranial stenosis identified. CT angio neck with con Stat FINDINGS: There is no evidence of occlusive disease or hemodynamically significant stenosis in the neck. There is no evidence of dissection. IMPRESSION: Negative study CT head/brain wo con Stat FINDINGS: This study is mildly compromised by artifact. No acute intracranial hemorrhage, midline shift or mass effect is present. The ventricular system is stable. White matter hypodensities are unchanged and favor small vessel disease. The basal cisterns are patent. No extra-axial collections are present. There are no findings to suggest acute dural sinus thrombosis or acute territorial infarct. No significant calvarial abnormalities are present. Visualized portions of the sinuses and mastoid air cells are clear. IMPRESSION: No acute intracranial findings. No change in appearance of the brain. Exam mildly compromised by artifact. 11/04/24 00:02 MR brain wo con Routine FINDINGS: Small focus of T2/FLAIR hyperintensity with DWI restriction seen in left posterior thalamus. Multiple small foci of T2/FLAIR hyperintensity with DWI restriction seen in bilateral ludwig radiata. Generalized parenchymal atrophy is appreciated. Scattered foci of increased T2/FLAIR signal abnormality are identified within the bilateral periventricular and subcortical white matter, and are most commonly associated with chronic small vessel ischemic disease. No focal parenchymal lesions are seen. No intracranial hemorrhage, mass effect, midline shift, extra-axial collection, or hydrocephalus is identified. Ventricles, sulci, and basal cisterns are symmetric and normal in size and configuration. Diffusion-weighted sequences show no evidence of acute ischemic infarction. Midline structures including the pituitary gland, corpus callosum, pineal region, and brainstem are unremarkable. The craniovertebral junction is within normal limits. No calvarial abnormalities are identified. Mild mucosal thickening in bilateral maxillary and ethmoidal sinusitis. Right sided mastoiditis present. Left mastoid air cells are clear. Orbital structures are unremarkable. Appropriate flow voids are present in the visualized intracranial vessels. IMPRESSION: 1. Multiple small acute infarcts (lacunar infarcts) involving left posterior thalamus and in bilateral ludwig radiata. 2. Chronic small vessel ischemic disease. 3. Diffuse cerebral atrophy. 11/10/24 10:00 CT head/brain wo con Urgent FINDINGS: No acute intracranial hemorrhage, midline shift, intracranial mass, hydrocephalus, territorial ischemia or abnormal extra-axial collection. Involutional changes with chronic microvascular ischemic disease. The small acute infarcts seen on prior MRI are not well evaluated by CT. The calvarium is intact. Mild mucosal thickening of the ethmoid air cells. Mastoid air cells are clear. IMPRESSION: 1. No acute intracranial hemorrhage, midline shift or acute territorial infarct. 2. Small acute infarcts better seen on the 11/04/2024 brain MRI. Hospital Course (1) Stroke-like symptom: (2) Hypoglycemia: Plan 69 yr old F who has a significant PMH of HTN, HLD, T1DM insulin controlled, hypothyroidism, Morbidly obese, Gerd, Mild Dementia, Depression and insomnia who presents to ED 2/2 altered mental status. Of significant pt was hospitalized 10/09-10/13 after sustaining a fall and R distal fibular fx requiring casting. She was discharged to [facility] rehab. Pt presents with LUE weakness and R facial droop. Head CT, Head/Neck CTA unremarkable. LKW ~ 1100, pt out of window for consideration for TPA. Pt with known hypoglycemia and evidence of recent a1c of 5.9. Feel sx very likely to be related to hypoglycemic event Acute CVA, left thalamus, bilateral ludwig radiata Altered Mental status - resolved pt alert and oriented to basics Headaches x 4 weeks 11/04 MRI Brain - Positive acute CVA, left thalamus and bilateral ludwig radiata Echocardiogram: No ASD Telemetry: No A-fib or arrhythmias so far, will need Zio patch Pt has been on ASA 81 BID (for hx of fib. fx) Now on Plavix 75 mg p.o. daily and daily ASA 81 Also already on simvastatin Neurology service consulted On admission pt appeared to be lethargic and weak, + Covid-19, obtained UDS Reduced insulin to reduce likelihood of hypoglycemic episodes -> discussed w/ glycemic pharmacy on 11/10 about current doses 11/08/2024 Neurology recommendations: Recommend to discontinue Plavix continue on aspirin at the current dose of Lovenox. To avoid risk of hemorrhagic conversion. Continue to monitor telemetry rule out paroxysmal atrial fibrillation, the patient is considered high risk given body habitus. She will need a Zio patch upon discharge . Anticoagulation to be considered upon discharge for stroke prevention 2024 Dr. Ashford (hospitalist) discussed with Neurologist Dr. Saldaña over the phone, recommendation: ASA 81mg po daily + Plavix 75mg po daily for 3 weeks, then ASA 81mg po daily only Lovenox 40mg SC daily ok as per pharmacist for DVT Px Dr Saldaña ok to have Lovenox SC daily along with ASA and Plavix will need outpatient Ziopatch monitoring Sars COV-2 relatively asymptomatic, not requiring o2 previous hospitalist discussed remdesivir with given pt high risk and it was decided for forego this treatment at this time Covid precautions ordered Chest x-ray no pneumonia Xopenex every 6 hours spirometry and flutter valve Mucinex twice daily as well Remains on room air repeat CXR no pneumonia T1DM A1C 5.22 sep 2024, feel pt is too tightly controlled given age and comorbidities reduced insulin by 50% given suspected reduce intake in setting of covid Goal A1C for pt should be 7-8, could be correlating to pts sx as well as YANES over the last few weeks Pharmacy glycemic control management consulted A1c 6.3 No hypoglycemia episodes noted Continue to monitor Discussed w/ glycemic pharmacy on 11/10 about current doses Glargine down to 50 units daily She does use Novolog at high doses which we have decreased significantly. I would discharge her with a low dose sliding scale such as: Blood Sugar 70-150, administer 0 units Blood Sugar 151-200, administer 1 units Blood Sugar 201-250, administer 3 units Blood Sugar 251-300, administer 5 units Blood Sugar 301-350, administer 7 units Blood Sugar 351-400, administer 9 units Blood Sugar >400, administer 11 units and call #Hyponatremia - chronic Na 132, hold HCTZ gentle fluid monitor bmp Na stable, hctz resumed, current Na 134 cont. to monitor as outpt #Mild hematuria, UTI ? from Deluca Insertion CBC stable UA and ucultx concerning for infection Pt on Rocephin repeated UA and ucultx repeated ucultx now negative, cont. po cefuroxime on DC to finish abx course Lovenox held - resume #Mild Dementia -at baseline #R fibular fx follows [facility] ortho, NWB, cast in place, had outpt follow up and will follow up again in 4 weeks continue PT/OT DVT ppx: SQ Lovenox FULL CODE PCP: Dr. Saxena Dispo: from Rehab Total Time Total Time Spent Total Time Spent (In Minutes): 40 Discharge Plan Discharge Items Patient Disposition: Transfer Inpatient Rehab Fac Reason For Visit: ALTERED MENTAL STATUS, HYPOGLYCEMIA, HEADACHE Discharge Diagnosis: Acute CVA UTI + Covid Activity: Per Instructions section Non-emergency contact: Primary Care Provider and Neurologist Call non-emergency contact if: you have any medication questions and your symptoms worsen Follow-up/Referrals: Oswaldo Saxena MD [Primary Care Provider] - Diet: Carb Count or DM1 and Heart Healthy Addtl Attending Provider Instructions: Follow up with physician at acute rehab and then with your primary care physician within 1 week after being discharged from rehab. You ill also need to follow up with neurology. Take aspirin and plavix for 3 weeks as recommended by neurology. You will need to be on these medications also to prevent clots given your recent fibular f racture. Your insulin was adjusted here to help prevent hypoglycemia. Your glargine was decreased to 50 units daily. Recommend sliding scale such as: Blood Sugar 70-150, administer 0 units Blood Sugar 151-200, administer 1 units Blood Sugar 201-250, administer 3 units Blood Sugar 251-300, administer 5 units Blood Sugar 301-350, administer 7 units Blood Sugar 351-400, administer 9 units Blood Sugar >400, administer 11 units and call MD You will need to follow up closely with your physician/ pharmacist/ fast food cook for your diabetes. Finish antibiotic course for UTI. Follow up with orthopedic surgery as previously scheduled. Addtl Director Of Programming Provider Instructions: Coronavirus disease 2019 (COVID-19) is a virus that causes a respiratory illness. It is caused by a coronavirus called 2019 novel coronavirus (2019- nCoV). There are many types of coronavirus. Coronaviruses are a very common cause of bronchitis. They may sometimes cause lung infection(pneumonia). Symptoms can range from mild to severe respiratory illness. These viruses are also foundin some animals. COVID-19 was first found in people in [facility], in late 2019. In 2020, several cases of COVID-19 have been confirmed in the [place] Public health officials are working to find the source. How the virus spreads is not yet fully known. It may be spread through droplets of fluid that a person coughs or sneezes into the air. It may be spread if you touch a surface with virus on it, such as a handle or object, and then touch your mouth. What are the symptoms of COVID-19? Some people have no symptoms or mild symptoms. Symptoms may appear 2 to 14 days after contact with the virus. Symptoms can include: Fever Coughing Trouble breathing What are possible complications from COVID-19? In many cases, this virus can cause infection (pneumonia) in both lungs. In some cases, this can cause . How is COVID-19 diagnosed? Your healthcare provider will ask about your symptoms. He or she will also ask about your recent travel and contact with sick people. Testing for the virus is only done through the CDC. If yourhealthcare provider thinks you may have COVID- 19, he or she will work with your local health department and the CDC on testing. Follow all instructions from your healthcare provider. COVID-19 is diagnosed by: Nasal and throat swab. A cotton-tipped swab is wiped inside your nose or throat. This is done to check for viruses in your nasal mucus. Sputum culture. A small sample of mucus coughed from your lungs (sputum) is collected if you have a cough. It is checked for the virus. How is COVID-19 treated? There is currently no medicine to treat the virus. Treatment is done to help your body while it fights the virus. This is known as supportive care. Supportive care may include: Pain medicine. These include acetaminophen and ibuprofen. They are used to help ease pain and reduce fever. Bed rest. This helps your body fight the illness. For severe illness, you may need to stay in the hospital. Care during severe illness may include: IV (intravenous) fluids.These are given through a vein to help keep your body hydrated. Oxygen. Supplemental oxygen or ventilation with a breathing machine (ventilator) may be given. This is done to keep enough oxygen in your body. Are you at risk for COVID-19? If youve been to a place where people have been sick with this virus, you are at risk for infection. You are at risk if you: Recently traveled to an affected area Had contact with a sick person who recently traveled to this area Had contact with a person who was diagnosed with COVID-19 How can COVID-19 be prevented? There is no vaccine yet. The best prevention is to not have contact with the virus. The CDC advises that people should not travel to areas where there are COVID-19 outbreaks right now for any reason that is not urgent. To help prevent spreading the infection, wash your hands often, or use an alcohol-basedhand irrigator valve pipe. If you are in an area with COVID-19: Wash your hands often. Or use an alcohol-based hand irrigator valve pipe often. Only touch your eyes, nose, or mouth with clean hands. Dont have contact with people who are sick. Follow local instructions about being in public. For example, you may be told to not use public transport for a period of time. Stay away from markets that have live or animals. Wash your hands after touching any animals. Don't touch animals that may be sick. Dont share eating or drinking tools with sick people. Dont kiss someone who is sick. Clean surfaces often with disinfectant. If you were in an area with COVID-19 in the last 14 days: Call your healthcare provider. He or she can talk with local health staff to see what action may be needed. Follow all instructions from your provider. Take your temperature every morning and evening for at least 14 days. This is to check for fever. Keep a record of the readings. Keep watch for symptoms of the virus. Tell your provider right away if you have symptoms. If you were in an area with COVID-19 and have a fever or other symptoms: Dont panic. Keep in mind that other illnesses can cause similar symptoms. Stay away from work, school, and public places. Limit physical contact with family members. Don't kiss anyone or share eating or drinking utensils. Clean surfaces you touch with disinfectant. This is to help prevent the virus from spreading. Call your healthcare provider. Explain that you have been exposed to COVID-19 and have symptoms. Do this before going to any hospital. Wait for instructions. Keep in mind that healthcare staff may wear protective equipment such as masks, gowns, gloves, and eye protection. You may be put in a separate room. This is to prevent the possible virus from spreading. Tell the healthcare staff about recent travel. This includes local travel on public transport. Staff may need to find other people you have been in contact with. Follow all instructions the healthcare staff give you. If you have been diagnosed with COVID-19 Follow all instructions from your healthcare provider. Dont leave your home, except to get medical care. Call your healthcare providers office before going. They can prepare and give you instructions. This will help prevent the virus from spreading. Dont go to work, school, or public areas. Dont use public transport or taxis. Stay away from other people in your home. Have them wear face masks around you. Dont share household items or food. Wear a face mask if you can. This includes at home or in a medical facility. Cover your face with a tissue when you cough or sneeze. Throw the tissue away. Wash your hands. Wash your hands often. Caregivers should: Follow all instructions from healthcare staff. Wear a face mask and protective clothing as advised. Wash hands often. Keep track of the sick persons symptoms. Clean surfaces, fabrics, and laundry thoroughly. Keep other people away from the sick person. When to call your healthcare provider Call your healthcare provider: If youve recently traveled and have symptoms If you have been diagnosed with COVID-19 and your symptoms are worse To learn more To find out more about COVID-19, visit the CDC website at www.cdc.gov/coronavirus/2019-ncov/index.html. [employer]. [address] [place], [place] [address]. All rights reserved. This information is not intended as a substitute for professional medical care. Always follow your healthcare professional's instructions. This information has been adapted from [employer] Pending Studies at Discharge: Yes Studies:: final results of blood cultx Stand-Alone Forms: [facility], Medications to Prevent Stroke Skilled Items Patient informed of condition?: Yes DNR: No Discharge Level of Care: Acute rehab Communicable Disease: No (here was on isolation for Covid) Discharge Prognosis: Stable Lines: None Urinary Catheter: Yes Medications and DC Order Prescriptions: New clopidogrel 75 mg Tablet 75 mg PO QAM Qty: 20 0RF enoxaparin [Lovenox] 40 mg/0.4 mL Syringe 40 mg subcut Q24H Qty: 4 0RF cefuroxime axetil 250 mg tablet 250 mg PO BID 4 Days Qty: 8 0RF Continued (DME) blood-glucose meter [OneTouch Ultra2 Meter] Kit See Rx Instructions .Route Qty: 1 0RF Rx Instructions: Test blood sugars 4 times a day (DME) OneTouch Ultra Test Strip See Rx Instructions .Route Qty: 400 3RF Rx Instructions: Test four times daily (DME) Dexcom G6 Lead Mechanic Misc See Rx Instructions .ROUTE .MEDSUPPLY Qty: 1 0RF Rx Instructions: as directed (DME) Dexcom G6 Sensor Device See Rx Instructions .ROUTE .MEDSUPPLY Qty: 9 3RF Rx Instructions: change every 10 days (DME) Dexcom G6 Transmitter Device See Rx Instructions .ROUTE .MEDSUPPLY Qty: 1 3RF Rx Instructions: Change every 90 days E10.65 fluoxetine 20 mg capsule 20 mg PO BID (DME) pen needle, diabetic [BD Cristy 2nd Gen Pen Needle] 32 gauge x 5/32" needle See Rx Instructions miscellaneous .MEDSUPPLY Rx Instructions: inject with a new pen needle 3x a day magnesium 200 mg Tablet 200 mg PO HS melatonin 10 mg Tablet 10 mg PO HS PRN (Reason: Sleep) folic acid 1 mg tablet 1 mg PO QAM cholecalciferol (vitamin D3) 50 mcg (2,000 unit) tablet 50 mcg PO QAM cholestyramine (with sugar) [Questran] 4 gram powder 4 ea PO QAM hydrochlorothiazide 12.5 mg tablet 12.5 mg PO QAM levothyroxine 125 mcg tablet 125 mcg PO DAILYBB lisinopril 5 mg tablet 5 mg PO QAM simvastatin 10 mg tablet 10 mg PO HS acetaminophen 325 mg Tablet 650 mg PO Q4 MDD 3G PRN (Reason: Pain) acetaminophen 325 mg Tablet 650 mg PO Q4 MDD 3G PRN (Reason: TEMP=>100) oxycodone-acetaminophen [Percocet] 5-325 mg tablet 1 tab PO Q6 PRN (Reason: PAIN MODERATE-SEVERE) Changed insulin glargine U-300 conc [Toujeo Max U-300 SoloStar] 300 unit/mL (3 mL) insulin pen 50 unit subcut QAM Qty: 6 0RF aspirin 81 mg Tablet,Delayed Release (Dr/Ec) 81 mg PO DAILY Qty: 30 0RF Held insulin aspart U-100 [Novolog FlexPen U-100 Insulin] 100 unit/mL (3 mL) insulin pen 10 unit subcut DAILY Hold Instructions: Resume on 11/13/24. review w/ physician on discharge from rehab insulin aspart U-100 [Novolog FlexPen U-100 Insulin] 100 unit/mL (3 mL) insulin pen 30 unit subcut QDB Hold Instructions: Resume on 11/13/24. review w/ physician on discharge from rehab insulin aspart U-100 [Novolog FlexPen U-100 Insulin] 100 unit/mL (3 mL) Insulin Pen 16 unit SUBCUT QDD Hold Instructions: Resume on 11/13/24. review w/ physician on discharge from rehab Rx Instructions: GIVE 30 MINUTES BEFORE SUPPER Admission Data Admit Date/Time: 11/04/24 01:45 Attending Provider: Ishmael Maier Admit Provider: Guicho Harris Primary Care Provider: Oswaldo Saxena Other Providers: Guicho Harris; Lori Martinez; Ankit Ramírez; Lori Dawkins; Robert Newman; Deny Nicholson; Pepe Koehler; Angelo Thurston; Jany Dill; Josue Shin; Stu Asif; Sarah Funes; Nathan Valdes; Cammy Easley; Shonna KimPittston; Angelo Saldaña; Krista Frankel; [facility]; [facility]; [place]; Shorty Ashford
[2024-11-12] MEDS ORDERED: STROKE PATIENT DISCHARGE STA (13:59)
== END 2024-11-12 16:09 | DRG 64 ==
LOC: 2W 14:40 → ED 14:40 → 2W 18:26 → SUATTDRO 11-04 01:45

== ENCOUNTER 2025-08-13 17:21 | Observation (INO) ==
--- NOTE | 2025-08-13 17:25 | Emergency Department Note ---
Impression & Plan Stroke-like symptoms, Acute confusion, Acute UTI (urinary tract infection) ED Provider Note HISTORY OF PRESENT ILLNESS: Patient is a 70-year-old female presenting with strokelike symptoms. Patient is confused and most of history obtained via EMS. Patient reportedly went to bed at 11 AM and her woke her up at 1530 and took her to the bathroom. However, she was unable to stand up and unable to speak to her at this time, which is abnormal for her. She has a previous history of CVA with left- sided deficits. She is normally fully conversant. She is on Eliquis. On arrival to the ER, the patient is alert to self. She does not remember the events of the afternoon. She thinks that it is January but she knows it is 2024. Denies any chest pain or shortness of breath. Fingerstick glucose for EMS was 119. ROS: as above PHYSICAL EXAM: Constitutional: Patient appears in no acute distress. HENT: Head: Normocephalic and atraumatic. Eyes: EOMI, PERRL Mouth/Throat: Mucous membranes moist. Neck: Trachea midline. Neck supple. Cardiovascular: RRR, No murmurs, rubs or gallops. Intact distal pulses. Pulmonary/Chest: No respiratory distress. Breath sounds clear and equal bilaterally. No wheezes or rales. Abdominal: Abdomen soft, no tenderness, rebound or guarding. Musculoskeletal: No edema, tenderness or deformity noted. Skin: Warm and dry. No rash, erythema, pallor or cyanosis Psychiatric: Appropriate mood and affect for situation. Neurological: Alert to self. Facies symmetric. Slight drift in her left upper extremity. Strength 5 out of 5 in bilateral upper and lower extremities. Sensation intact to light touch throughout the nerve distributions of the bilateral upper and lower extremities. NIHSS 8 (+1 LOC question; +1 facial palsy; +1 LUE drift; +1 LLE drift; +1 limb ataxia; +1 mild aphasia; +1 partial neglect) MDM: - Vitals signs showed hypertension borderline hypoxia at 93%. Patient placed on 2 L nasal cannula. - History obtained via EMS, given patient's confusion. History as above. - Chronic conditions affecting care: HTN; HLD; DM-1; obesity; hx of embolic stroke - Differential diagnoses include, but are not limited to: CVA; intracranial hemorrhage; pneumonia; UTI; viral syndrome - Order placed for continuous cardiac monitoring. At this time, monitor showed rate of 68 bpm with normal sinus rhythm, per my interpretation. - External medical records reviewed. Discharge summary dated 11/12/2024 was reviewed. Patient was admitted at that time for altered mental status and was found to have an acute CVA and UTI as well as being COVID-positive. - EKG image interpreted by myself showed normal sinus rhythm. Rate 72 bpm. QT 414. No acute ischemic changes. - Laboratory workup interpreted by myself showed leukocytosis (WBC 13.98); thrombocytosis (plt 412); normal PT/INR; normal lactic acid; negative procalcitonin; stable electrolytes; elevated AST (45) - UA showed evidence of infection. Given 2g IV rocephin - Viral respiratory panel negative - CXR image reviewed interpreted by myself as needed for pneumonia, per my interpretation. - Patient complaining of an 8 out of 10 headache. Given 1 g IV Tylenol. - CT head wo contrast images reviewed interpreted by myself were negative for intracranial hemorrhage, per my interpretation. - CTA head/neck negative for acute pathology - Patient's aphasia is improved on arrival to the emergency department. She seems more globally confused versus CVA at this point. - Discussed case with teleneurologist at [facility], Dr. Coe, at 17:59. Reports that given patient's low NIH, her symptoms are too mild for mechanical thrombectomy. Given her Eliquis usage, she is not a candidate for TNK. Recommended that Eliquis be held and patient be given baby aspirin. Recommended admission for further workup and an MRI at 1801. - Discussion was had with block and case maker about patient's case and need for admission - Hospitalist consulted for admission - Patient [facility] for further evaluation and management. ASSESSMENT AND PLAN: Diagnosis: Strokelike symptoms; acute confusion; acute UTI Plan: admit Past Med/Surg History Problem List (Updated 08/13/25 @ 20:15 by Shannan Alejandro MD) Acute UTI (urinary tract infection) (Acute) Acute confusion (Acute) Stroke-like symptoms (Acute) Dementia Family history of clotting disorder Dyslipidemia Obesity History of embolic stroke Diabetes type 1, controlled Adjustment disorder with mixed anxiety and depressed mood HTN (hypertension) Hypothyroidism (Chronic) Medical History (Updated 08/13/25 @ 20:15 by Shannan Alejandro MD) History of fibula fracture Surgical History H/O: hysterectomy S/P excision of lipoma (06/26/23) Right Upper Extremity Lipoma Excision Times 4; Left Lower Extremity Lipoma Excision Times 1(Bilateral) - Louis Silva DO History of repair of rotator cuff bilateral H/O colonoscopy History of hysterectomy Non cancerous fibroid removal of 6 lbs History of cholecystectomy 1986 History of tonsillectomy Family History (Updated 06/22/25 @ 13:14 by Deonte Zambrano MD) Grandmother (Maternal) Diabetes Mother , in early Hypertension Heart disease Factor V Leiden Grandmother (Paternal) Diabetes Daughter Migraine headache Social History (Updated 06/22/25 @ 13:15 by Deonte Zambrano MD) Smoking Status: Never smoker Age Started Using Tobacco: 20; Age Quit Using Tobacco: 23; Second Hand Exposure: No; Do You Dip or Chew Tobacco: No; Hx Alcohol Use: No Hx Substance Use: No Preferred Language: Welsh Communication Ability: Effective Molder Punch Required: No Beliefs That Will Affect Care: None marital status: Current Living Situation: Rehab current occupational status: retired 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 [employer] How many Children do You have: 2 Feels Safe at Home: Yes Diet: diabetic during the past year weight has: remained stable Assistive Devices: None Allergies Allergies Allergy/AdvReac Type Severity Reaction Status Date / Time dextromethorphan Allergy Severe nyquil -> Verified 08/13/25 19:06 Difficulty Breathing doxylamine Allergy Severe nyquil -> Verified 08/13/25 19:06 Difficulty Breathing pseudoephedrine Allergy Severe nyquil -> Verified 08/13/25 19:06 Difficulty Breathing glyburide Allergy Intermediate RASH - pt Verified 08/13/25 19:06 and denies tetanus toxoid, adsorbed Allergy Intermediate painful Verified 08/13/25 19:06 joints aspartame Allergy Incontinenc Verified 08/13/25 19:06 e phenylalanine Allergy Incontinenc Verified 08/13/25 19:06 e stevioside [From Stevia] Allergy Incontinenc Verified 08/13/25 19:06 e sucralose Allergy Incontinenc Verified 08/13/25 19:06 [From Splenda (sucralose)] e vasquez pepper AdvReac Gastrointestinal Verified 08/13/25 19:06 Upset black pepper AdvReac Gastrointestinal Verified 08/13/25 19:06 Upset Ethanol Allergy Severe nyquil -> Uncoded 08/13/25 19:06 Difficulty Breathing Home Meds Home Medications Medication Instructions Recorded Confirmed fluoxetine 20 mg capsule 20 mg PO BID 05/19/23 08/13/25 folic acid 1 mg tablet 1 mg PO QAM 06/18/23 08/13/25 melatonin 10 mg tablet 10 mg PO HS 06/18/23 08/13/25 pen needle, diabetic 32 gauge x 06/19/23 08/13/25" (BD Cristy 2nd Gen Pen Needle) levothyroxine 125 mcg tablet 125 mcg PO DAILYBB 10/09/24 08/13/25 lisinopril 5 mg tablet 5 mg PO QAM 10/09/24 08/13/25 simvastatin 10 mg tablet 10 mg PO HS 10/09/24 08/13/25 blood-glucose sensor (Dexcom G7 05/31/25 08/13/25 Sensor device) apixaban 5 mg tablet (Eliquis) 5 mg PO BID 06/22/25 08/13/25 aspirin 81 mg tablet,delayed 81 mg PO QAM 08/13/25 08/13/25 release bisacodyl 10 mg rectal suppository 10 mg MI Q OTHER DAY 08/13/25 08/13/25 (Dulcolax (bisacodyl)) cholecalciferol (vitamin D3) 125 125 mcg PO DAILY 08/13/25 08/13/25 mcg (5,000 unit) tablet (Vitamin D3) fenugreek seed 565 mg capsule 655 mg PO AMPM 08/13/25 08/13/25 insulin glargine U-300 conc 300 62 unit subcut QAM 08/13/25 08/13/25 unit/mL (3 mL) subcutaneous pen (Toujeo Max U-300 SoloStar) melatonin 10 mg tablet,extended 15 mg PO HS 08/13/25 08/13/25 release polyethylene glycol 3350 17 8.5 g PO QDL 08/13/25 08/13/25 gram/dose oral powder (Miralax) Previous Rx's Medication Instructions Recorded blood-glucose meter (OneTouch #1 ea 03/20/22 Ultra2 Meter kit) OneTouch Ultra Test (blood sugar #400 ea 10/17/22 diagnostic) insulin aspart U-100 100 unit/mL See Rx Instructions .Route 12/19/24 (3 mL) subcutaneous pen (Novolog .COMPLEX #30 mL FlexPen U-100 Insulin aspart) Results & Data (ED) Vital Signs Vital Signs - 24 hr 08/13/25 17:24 08/13/25 17:30 08/13/25 17:30 Temperature 36.8 C 36.8 C Temperature Source Oral Oral Pulse Rate 69 Pulse Rate [Apical] 69 Pulse Rhythm Regular Pulse Strength Normal Respiratory Rate 18 18 Respiratory Effort / Characteristics Non-Labored Spontaneous Non-Labored Spontaneous Respiratory Depth Normal Normal Respiratory Pattern Regular Regular Blood Pressure 155/68 H Blood Pressure [Right Arm] 155/68 H Blood Pressure Mean 97 Blood Pressure Mean [Right Arm] 97 Pulse Oximetry 93 94 94 Oxygen Delivery Method Nasal Cannula Nasal Cannula Nasal Cannula Oxygen Flow Rate 2 2 2 Sepsis Recent Fever Within 48 Hours No Sepsis New/Unexplained Change in Mental Status Yes Sepsis Action Taken by Nursing Physician Notified Oxygen Flow Rate - Titration Pulse Oximetry Post Tiitration 08/13/25 17:30 08/13/25 17:33 08/13/25 18:44 Temperature Temperature Source Pulse Rate 68 Pulse Rate [Apical] 69 Pulse Rhythm Pulse Strength Respiratory Rate 18 Respiratory Effort / Characteristics Non-Labored Spontaneous Respiratory Depth Normal Respiratory Pattern Regular Blood Pressure Blood Pressure [Right Arm] 128/80 Blood Pressure Mean Blood Pressure Mean [Right Arm] 96 Pulse Oximetry 90 94 Oxygen Delivery Method Room Air Room Air Oxygen Flow Rate Sepsis Recent Fever Within 48 Hours Sepsis New/Unexplained Change in Mental Status Sepsis Action Taken by Nursing Oxygen Flow Rate - Titration 2 Pulse Oximetry Post Tiitration 94 Laboratory Data 08/13/25 17:44 08/13/25 17:44 Lab Results 08/13/25 08/13/25 08/13/25 Range/Units 17:44 17:46 17:49 WBC 13.98 H (4.8-10.8) K/ul RBC 4.84 (4.20-5.40) M/uL Hgb 13.8 (12.0-16.0) g/dL POC Hgb 14.6 (12.0-16.0) g/dl Hct 41.7 (37.0-47.0) % POC Hct 43 (37-47) % MCV 86.2 (80.0-100.0) fL MCH 28.5 (25.0-34.0) pg MCHC 33.1 (32.0-36.0) g/dL RDW Std Deviation 49.4 H (36.4-46.3) fL RDW Coeff of Rossi 15.8 H (11.5-14.5) % Plt Count 412 H (130-400) K/uL MPV 10.1 (9.4-12.4) fL PT 11.3 (9.0-12.0) Seconds INR 1.1 (0.9-1.1) APTT 26 (21-31) Seconds PTT Ratio 1.0 POC Sodium 137 (135-144) mmol/L Sodium 134 L (136-145) mmol/L POC Potassium 4.2 (3.3-5.0) mmol/L Potassium 4.0 (3.5-5.1) mmol/L POC Chloride 103 (101-112) mmol/L Chloride 102 (98-107) mmol/L Carbon Dioxide 23 (21-32) mmol/L POC Total CO2 23 L (24-31) mmol/L Anion Gap 9 (3-11) POC Anion Gap 16.0 (16-25) mmol/L POC BUN 25 H (7-18) mg/dl BUN 20 (6-23) mg/dl Creatinine 0.71 (0.6-1.2) mg/dl POC Creatinine 0.8 (0.6-1.3) mg/dl Est Cr Clr Drug Dosing 86.2 ml/min eGFR 91.41 BUN/Creatinine Ratio 28.2 H (10-20) Glucose 131 H (70-99(Fasting)) mg/dl POC Glucose (other) 125 H (70-99) mg/dl Lactate (0.4-2.0) mmol/L Calcium 9.2 (8.6-10.3) mg/dl POC Ioniz Calcium [place] 1.15 (1.12-1.32) mmol/l Magnesium 1.9 (1.7-2.4) mg/dl Total Bilirubin 0.5 (0.2-1.0) mg/dl AST 45 H (13-39) U/L ALT 25 (7-52) U/L Alkaline Phosphatase 80 (34-104) U/L Total Protein 7.1 (6.0-8.3) gm/dl Albumin 4.3 (3.4-5.0) gm/dl Globulin 2.8 (2.5-4.0) gm/dl Albumin/Globulin Ratio 1.5 (0.9-2) Procalcitonin < 0.02 (0-0.5) ng/ml Urine Color Urine Appearance (Clear) Urine pH (4.5-7.5) Ur Specific [place] (1.000-1.030) Urine Protein (Negative) Urine Glucose (UA) (Negative) Urine Ketones (Negative) Urine Blood (Negative) Urine Nitrite (Negative) Urine Bilirubin (Negative) Urine Urobilinogen (Negative) Ur Leukocyte Esterase (Negative) Urine WBC (Auto) (0-5) /hpf Urine RBC (Auto) (0-2) /hpf U Hyaline Cast (Auto) (0-2) /lpf U Epithel Cells (Auto) (0-2) /hpf Urine Bacteria (Auto) (None Seen) Urine Comment Adenovirus (PCR) (NotDetected) B. pertussis DNA (PCR) (NotDetected) B.parapertussis DNA PCR (NotDetected) C. pneumoniae DNA (PCR) (NotDetected) Coronavirus OC43 (PCR) (NotDetected) Coronavirus HKU1 (PCR) (NotDetected) Coronavirus 229E (PCR) (NotDetected) SARS-CoV-2 (PCR) (NotDetected) Coronavirus NL63 (PCR) (NotDetected) Human Metapneumovir PCR (NotDetected) Influenza Type A (PCR) (NotDetected) Influenza Type B (PCR) (NotDetected) M. pneumoniae (PCR) (NotDetected) Parainfluenza 1 (PCR) (NotDetected) Parainfluenza 2 (PCR) (NotDetected) Parainfluenza 3 (PCR) (NotDetected) Parainfluenza 4 (PCR) (NotDetected) RSV (PCR) (NotDetected) Entero/Rhino (PCR) (NotDetected) 11/30/25 11/30/25 11/30/25 Range/Units 18:05 18:08 18:40 WBC (4.8-10.8) K/ul RBC (4.20-5.40) M/uL Hgb (12.0-16.0) g/dL POC Hgb (12.0-16.0) g/dl Hct (37.0-47.0) % POC Hct (37-47) % MCV (80.0-100.0) fL MCH (25.0-34.0) pg MCHC (32.0-36.0) g/dL RDW Std Deviation (36.4-46.3) fL RDW Coeff of Rossi (11.5-14.5) % Plt Count (130-400) K/uL MPV (9.4-12.4) fL PT (9.0-12.0) Seconds INR (0.9-1.1) APTT (21-31) Seconds PTT Ratio POC Sodium (135-144) mmol/L Sodium (136-145) mmol/L POC Potassium (3.3-5.0) mmol/L Potassium (3.5-5.1) mmol/L POC Chloride (101-112) mmol/L Chloride (98-107) mmol/L Carbon Dioxide (21-32) mmol/L POC Total CO2 (24-31) mmol/L Anion Gap (3-11) POC Anion Gap (16-25) mmol/L POC BUN (7-18) mg/dl BUN (6-23) mg/dl Creatinine (0.6-1.2) mg/dl POC Creatinine (0.6-1.3) mg/dl Est Cr Clr Drug Dosing ml/min eGFR BUN/Creatinine Ratio (10-20) Glucose (70-99(Fasting)) mg/dl POC Glucose (other) (70-99) mg/dl Lactate 0.9 (0.4-2.0) mmol/L Calcium (8.6-10.3) mg/dl POC Ioniz Calcium [place] (1.12-1.32) mmol/l Magnesium (1.7-2.4) mg/dl Total Bilirubin (0.2-1.0) mg/dl AST (13-39) U/L ALT (7-52) U/L Alkaline Phosphatase (34-104) U/L Total Protein (6.0-8.3) gm/dl Albumin (3.4-5.0) gm/dl Globulin (2.5-4.0) gm/dl Albumin/Globulin Ratio (0.9-2) Procalcitonin (0-0.5) ng/ml Urine Color Yellow Urine Appearance Clear (Clear) Urine pH 5.0 (4.5-7.5) Ur Specific [place] 1.015 (1.000-1.030) Urine Protein Negative (Negative) Urine Glucose (UA) Negative (Negative) Urine Ketones Negative (Negative) Urine Blood Negative (Negative) Urine Nitrite Positive A (Negative) Urine Bilirubin Negative (Negative) Urine Urobilinogen Negative (Negative) Ur Leukocyte Esterase Trace H (Negative) Urine WBC (Auto) 0-5 (0-5) /hpf Urine RBC (Auto) 0-2 (0-2) /hpf U Hyaline Cast (Auto) 0-2 (0-2) /lpf U Epithel Cells (Auto) 0-2 (0-2) /hpf Urine Bacteria (Auto) 2+ H (None Seen) Urine Comment Adenovirus (PCR) Not Detected (NotDetected) B. pertussis DNA (PCR) Not Detected (NotDetected) B.parapertussis DNA PCR Not Detected (NotDetected) C. pneumoniae DNA (PCR) Not Detected (NotDetected) Coronavirus OC43 (PCR) Not Detected (NotDetected) Coronavirus HKU1 (PCR) Not Detected (NotDetected) Coronavirus 229E (PCR) Not Detected (NotDetected) SARS-CoV-2 (PCR) Not Detected (NotDetected) Coronavirus NL63 (PCR) Not Detected (NotDetected) Human Metapneumovir PCR Not Detected (NotDetected) Influenza Type A (PCR) Not Detected (NotDetected) Influenza Type B (PCR) Not Detected (NotDetected) M. pneumoniae (PCR) Not Detected (NotDetected) Parainfluenza 1 (PCR) Not Detected (NotDetected) Parainfluenza 2 (PCR) Not Detected (NotDetected) Parainfluenza 3 (PCR) Not Detected (NotDetected) Parainfluenza 4 (PCR) Not Detected (NotDetected) RSV (PCR) Not Detected (NotDetected) Entero/Rhino (PCR) Not Detected (NotDetected) Administered Medications Discontinued Medications Acetaminophen (Ofirmev) 1,000 mg in 100 mls @ 400 mls/hr IV NOW STA Stop: 08/13/25 19:06 Last Infusion: 08/13/25 19:26 Dose: Infused Documented By: Admin: 08/13/25 18:57 Dose: 400 mls/hr Documented By: GARRY Ceftriaxone Sodium (Rocephin) 2,000 mg in 50 mls @ 100 mls/hr IV NOW STA Stop: 08/13/25 19:47 Last Admin: 08/13/25 19:31 Dose: Not Given Documented By: KRISTA Ioversol (Optiray 320 125ml) 115 ml IV ONCE ONE Stop: 08/13/25 17:33 Last Admin: 08/13/25 17:33 Dose: 115 ml Documented By: YANA Imaging Data Radiologist's Impression: Chest X-Ray 08/13/25 17:19 EXAM: Portable AP chest radiograph TECHNIQUE: AP portable radiograph of the chest was obtained. INDICATION: Shortness of breath Comparison: Chest radiograph November 05, 2024 FINDINGS: LINES and TUBES: None CARDIOVASCULAR: Cardiac silhouette is stably and mildly enlarged in size. LUNGS/PLEURA: No focal consolidation identified. Mild pulmonary vascular congestion and chronic interstitial lung changes appear similar to previous. No significant pleural fluid. No discernible pneumothorax. OSSEOUS/OTHER: No displaced acute osseous process identified. IMPRESSION: Mild congestive changes of the cardiovascular system that appear similar to the previous radiograph dated November 05, 2024. Electronically signed by Saturnino Ortega 08-13-2025 6:[address] 08/13/25 17:19 CT head without contrast History: Aphasia Comparison: 11/10/2024 Technique: Using multidetector thin collimation helical acquisition technique, axial, coronal and sagittal CT images from the skull base to the vertex were obtained without intravenous contrast. Dose reduction techniques were achieved by using automatic exposure control and/or adjustment of mA and/or kV according to patient size and/or use of iterative reconstruction technique. Findings: No intracranial hemorrhage, mass-effect, or midline shift. The ventricles are proportionate to the cerebral sulci. The campa to white matter differentiation of the cerebral hemispheres is preserved. The basal cisterns are patent. There is moderate cerebral atrophy. Moderate, patchy low-attenuation changes in the white matter, most suggestive of sequelae of chronic small vessel ischemic disease. The visualized paranasal sinuses are clear. Mastoid air cells are clear. Impression: No acute intracranial pathology. Electronically signed by Laron Frankel 08-13-2025 5:34 PM Head CTA 08/13/25 17:[address] without contrast CT angiogram of the neck CT angiogram of the brain with contrast Provided History: Neuro deficit Comparison: None Technique: HEAD CT: Using multidetector thin collimation helical acquisition technique, axial, coronal and sagittal CT images from the skull base to the vertex were obtained without intravenous contrast. HEAD and NECK CTA: During rapid bolus intravenous injection of nonionic contrast material, axial images were obtained using thin collimation multidetector helical technique from the base of the neck through the of vertex of the head. This CT angiogram data was reconstructed at thin intervals with mild overlap. 3D reconstructions were obtained. The axial source images, multiplanar reformations, 3D reconstructions in both maximum intensity projection display and volume rendered models were reviewed. Dose reduction techniques were achieved by using automatic exposure control and/or adjustment of mA and/or kV according to patient size and/or use of iterative reconstruction technique. Findings: Head CT: There is no intracranial hemorrhage, mass effect, or midline shift. Campa/white matter differentiation in both cerebral hemispheres is preserved. Ventricles are proportionate to the cerebral sulci. Head CTA demonstrates no aneurysm or stenosis of the major intracranial arteries. Neck CTA demonstrates no stenosis of the major cervical arteries. The origins of the great vessels from the aortic arch are patent. No mass is noted within the visualized portions of the cervical soft tissues or lung apices. Impression: 1. Head CTA demonstrates no aneurysm or stenosis of the major intracranial arteries, 2. Neck CTA demonstrates no stenosis of the major cervical arteries. 3. No intracranial hemorrhage on the noncontrast head CT. Electronically signed by Laron Frankel 08-13-2025 5:59 PM Neck CTA 08/13/25 17:[address] without contrast CT angiogram of the neck CT angiogram of the brain with contrast Provided History: Neuro deficit Comparison: None Technique: HEAD CT: Using multidetector thin collimation helical acquisition technique, axial, coronal and sagittal CT images from the skull base to the vertex were obtained without intravenous contrast. HEAD and NECK CTA: During rapid bolus intravenous injection of nonionic contrast material, axial images were obtained using thin collimation multidetector helical technique from the base of the neck through the of vertex of the head. This CT angiogram data was reconstructed at thin intervals with mild overlap. 3D reconstructions were obtained. The axial source images, multiplanar reformations, 3D reconstructions in both maximum intensity projection display and volume rendered models were reviewed. Dose reduction techniques were achieved by using automatic exposure control and/or adjustment of mA and/or kV according to patient size and/or use of iterative reconstruction technique. Findings: Head CT: There is no intracranial hemorrhage, mass effect, or midline shift. Campa/white matter differentiation in both cerebral hemispheres is preserved. Ventricles are proportionate to the cerebral sulci. Head CTA demonstrates no aneurysm or stenosis of the major intracranial arteries. Neck CTA demonstrates no stenosis of the major cervical arteries. The origins of the great vessels from the aortic arch are patent. No mass is noted within the visualized portions of the cervical soft tissues or lung apices. Impression: 1. Head CTA demonstrates no aneurysm or stenosis of the major intracranial arteries, 2. Neck CTA demonstrates no stenosis of the major cervical arteries. 3. No intracranial hemorrhage on the noncontrast head CT. Electronically signed by Laron Frankel 08-13-2025 5:59 PM Discharge Plan Visit Data Chief Complaint: Stroke Alert Stated Complaint: Stroke Alert ED Provider: Shannan Alejandro Discharge Problem: Stroke-like symptoms, Acute confusion, Acute UTI (urinary tract infection) Patient Disposition: Admitted As Inpatient Condition: Fair Forms Stand Alone Forms: [facility] Prescriptions Prescriptions: No Action (DME) blood-glucose meter [OneTouch Ultra2 Meter] Kit See Rx Instructions .Route Qty: 1 0RF Rx Instructions: Test blood sugars 4 times a day (DME) OneTouch Ultra Test Strip See Rx Instructions .Route Qty: 400 3RF Rx Instructions: Test four times daily insulin aspart U-100 [Novolog FlexPen U-100 Insulin] 100 unit/mL (3 mL) insulin pen See Rx Instructions .ROUTE .COMPLEX Qty: 30 5RF Hold Instructions: Resume on 11/13/24. review w/ physician on discharge from rehab Rx Instructions: Inject per sliding scale up to 65 units daily; GIVE 30 MINUTES BEFORE SUPPER fluoxetine 20 mg capsule 20 mg PO BID (DME) pen needle, diabetic [BD Cristy 2nd Gen Pen Needle] 32 gauge x 5/32" needle See Rx Instructions miscellaneous .MEDSUPPLY Rx Instructions: inject with a new pen needle 3x a day Eliquis 5 mg tablet 5 mg PO BID (DME) Dexcom G7 Sensor Device See Rx Instructions .Route Rx Instructions: As directed melatonin 10 mg Tablet 10 mg PO HS folic acid 1 mg tablet 1 mg PO QAM levothyroxine 125 mcg tablet 125 mcg PO DAILYBB lisinopril 5 mg tablet 5 mg PO QAM simvastatin 10 mg tablet 10 mg PO HS melatonin 10 mg Tablet Extended Release 15 mg PO HS insulin glargine U-300 conc [Toujeo Max U-300 SoloStar] 300 unit/mL (3 mL) insulin pen 62 unit subcut QAM cholecalciferol (vitamin D3) [Vitamin D3] 125 mcg (5,000 unit) Tablet 125 mcg PO DAILY aspirin [Aspirin Low-Strength] 81 mg Tablet,Delayed Release (Dr/Ec) 81 mg PO QAM bisacodyl [Dulcolax (bisacodyl)] 10 mg Suppository 10 mg MI Q OTHER DAY polyethylene glycol 3350 [Miralax] 17 gram/dose Powder 8.5 g PO QDL fenugreek seed 565 mg Capsule 655 mg PO AMPM Referrals Referrals: Oswaldo Saxena MD [Primary Care Provider] -
[2025-08-13] MEDS: OPTIRAY 320 125ml IV ONE (17:33)
--- NOTE | 2025-08-13 17:34 | CT Scan Report ---
CT head without contrast History: Aphasia Comparison: 11/10/2024 Technique: Using multidetector thin collimation helical acquisition technique, axial, coronal and sagittal CT images from the skull base to the vertex were obtained without intravenous contrast. Dose reduction techniques were achieved by using automatic exposure control and/or adjustment of mA and/or kV according to patient size and/or use of iterative reconstruction technique. Findings: No intracranial hemorrhage, mass-effect, or midline shift. The ventricles are proportionate to the cerebral sulci. The bass to white matter differentiation of the cerebral hemispheres is preserved. The basal cisterns are patent. There is moderate cerebral atrophy. Moderate, patchy low-attenuation changes in the white matter, most suggestive of sequelae of chronic small vessel ischemic disease. The visualized paranasal sinuses are clear. Mastoid air cells are clear. Impression: No acute intracranial pathology. Electronically signed by Laron Frankel 08-13-2025 5:34 PM
[2025-08-13 17:57] LABS: Hematocrit (blood only) 41.7 % (37.0-47.0); Hemoglobin 13.8 g/dL (12.0-16.0); Mean Corpuscular Hemoglobin 28.5 pg (25.0-34.0); Mean Corpuscular Volume 86.2 fL (80.0-100.0); Platelet Count 412 K/uL (130-400); RDW Standard Deviation 49.4 fL (36.4-46.3); Red Blood Count 4.84 M/uL (4.20-5.40); White Blood Count 13.98 K/ul (4.8-10.8)
--- NOTE | 2025-08-13 17:59 | CT Scan Report ---
Head CT without contrast CT angiogram of the neck CT angiogram of the brain with contrast Provided History: Neuro deficit Comparison: None Technique: HEAD CT: Using multidetector thin collimation helical acquisition technique, axial, coronal and sagittal CT images from the skull base to the vertex were obtained without intravenous contrast. HEAD and NECK CTA: During rapid bolus intravenous injection of nonionic contrast material, axial images were obtained using thin collimation multidetector helical technique from the base of the neck through the of vertex of the head. This CT angiogram data was reconstructed at thin intervals with mild overlap. 3D reconstructions were obtained. The axial source images, multiplanar reformations, 3D reconstructions in both maximum intensity projection display and volume rendered models were reviewed. Dose reduction techniques were achieved by using automatic exposure control and/or adjustment of mA and/or kV according to patient size and/or use of iterative reconstruction technique. Findings: Head CT: There is no intracranial hemorrhage, mass effect, or midline shift. Campa/white matter differentiation in both cerebral hemispheres is preserved. Ventricles are proportionate to the cerebral sulci. Head CTA demonstrates no aneurysm or stenosis of the major intracranial arteries. Neck CTA demonstrates no stenosis of the major cervical arteries. The origins of the great vessels from the aortic arch are patent. No mass is noted within the visualized portions of the cervical soft tissues or lung apices. Impression: 1. Head CTA demonstrates no aneurysm or stenosis of the major intracranial arteries, 2. Neck CTA demonstrates no stenosis of the major cervical arteries. 3. No intracranial hemorrhage on the noncontrast head CT. Electronically signed by Laron Frankel 08-13-2025 5:59 PM
[2025-08-13 18:15] LABS: Alanine Aminotransferase 25.0 U/L (7-52); Albumin Globulin Ratio 1.5 (0.9-2); Albumin Level 4.3 gm/dl (3.4-5.0); Alkaline Phosphatase 80.0 U/L (34-104); Anion Gap 9.0 (3-11); Bilirubin,Total 0.5 mg/dl (0.2-1.0); Blood Urea Nitrogen 20.0 mg/dl (6-23); Calcium 9.2 mg/dl (8.6-10.3); Carbon Dioxide 23.0 mmol/L (21-32); Chloride 102.0 mmol/L (98-107); Creatinine Clr Calc Pharmacy 86.2 ml/min; Globulin 2.8 gm/dl (2.5-4.0); Glucose 131.0 mg/dl (70-99(Fasting)); Magnesium 1.9 mg/dl (1.7-2.4); Potassium 4.0 mmol/L (3.5-5.1); Sodium 134.0 mmol/L (136-145); Total Protein 7.1 gm/dl (6.0-8.3)
[2025-08-13 18:25] LABS: INR 1.1 (0.9-1.1); Partial Thromboplastin Time 26 Seconds (21-31); Prothrombin Time 11.3 Seconds (9.0-12.0)
--- NOTE | 2025-08-13 18:46 | XRay Report ---
EXAM: Portable AP chest radiograph TECHNIQUE: AP portable radiograph of the chest was obtained. INDICATION: Shortness of breath Comparison: Chest radiograph November 05, 2024 FINDINGS: LINES and TUBES: None CARDIOVASCULAR: Cardiac silhouette is stably and mildly enlarged in size. LUNGS/PLEURA: No focal consolidation identified. Mild pulmonary vascular congestion and chronic interstitial lung changes appear similar to previous. No significant pleural fluid. No discernible pneumothorax. OSSEOUS/OTHER: No displaced acute osseous process identified. IMPRESSION: Mild congestive changes of the cardiovascular system that appear similar to the previous radiograph dated November 05, 2024. Electronically signed by Saturnino Ortega 08-13-2025 6:45 PM
[2025-08-13 18:56] LABS: Appearance Urine Clear (Clear); Bacteria Urine Automated 2+ (None Seen); Cast Urine Automated 0-2 /lpf (0-2); Epithelial Cell Urine Auto 0-2 /hpf (0-2); Glucose Urine UA Negative (Negative); RBC Urine Automated 0-2 /hpf (0-2); WBC Urine Automated 0-5 /hpf (0-5)
[2025-08-13] MEDS: ACETAMINOPHEN 1,000 MG/100 ML VIAL IV STA (18:57)
[2025-08-13 19:04] LABS: Chlamydia pneumoniae PCR Not Detected (NotDetected); Coronavirus 229E PCR Not Detected (NotDetected); Coronavirus CoV-2 (COVID19)PCR Not Detected (NotDetected); Coronavirus HKU1 PCR Not Detected (NotDetected); Coronavirus NL63 PCR Not Detected (NotDetected); Coronavirus OC43PCR Not Detected (NotDetected); Human Metapneumovirus PCR Not Detected (NotDetected); Parainfluenza Virus 1 PCR Not Detected (NotDetected); Parainfluenza Virus 2 PCR Not Detected (NotDetected); Parainfluenza Virus 3 PCR Not Detected (NotDetected); Parainfluenza Virus 4 PCR Not Detected (NotDetected); Respiratory Syncytial VirusPCR Not Detected (NotDetected); Rhinovirus/Enterovirus PCR Not Detected (NotDetected)
[2025-08-13] MEDS: cefTRIAXone SODIUM 2,000 MG/50 ML BAG IV STA (19:31)
[2025-08-13] MEDS ORDERED: CARBOHYDRATES FOR HYPOGLYCEMIA PO PRN (19:32)
[2025-08-13] MEDS ORDERED: DEXTROSE 50% 50 ML SYRINGE IV PRN (19:32)
[2025-08-13] MEDS ORDERED: PHARMACY GLYCEMIC MGMT CONSULT PRN (19:32)
[2025-08-13] MEDS ORDERED: GLUCOSE 40% GEL 15 GM TUBE PO PRN (19:32)
[2025-08-13] MEDS ORDERED: GLUCAGON FOR INJ 1 MG VIAL SQ PRN (19:32)
[2025-08-13] MEDS ORDERED: GLUCOSE 10 TAB/TUBE PO PRN (19:32)
[2025-08-13] MEDS ORDERED: PHARMACIST DISCHARGE MED REC CONSULT PRN (19:34)
--- NOTE | 2025-08-13 19:56 | History & Physical Report ---
Date of Service August 13, 2025 Assessment & Plan (1) HTN (hypertension): (2) Stroke-like symptoms: (3) Diabetes type 1, controlled: (4) Hypothyroidism: (5) Dyslipidemia: Plan Stroke like symptoms in a 70 yo female with altered mental status and history of previous strokes. She had history of neurological events with a stroke causing left sided weakness. Will complete neurological workup. Will place on statin. and aspirin. Already on ELiquis. Patient did have leukocytosis but this coud be reactive to a possible stroke or TIA. UA was positive but at this point will not treat and call this asymptomatic bacteruria. repots no change in urinary habits at this time. #T1DM consult glycemic control placed on short acting insulin #Hyponatremia - chronic Na 134 #Mild Dementia -at baseline, with some confusion. 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 Patient was her normal state of health when around 3pm she was found slouched over on her wheel chair. She then had difficulty speaking. Patient is normally conversant with her ex who is her child care cook. She is essentially wheel chair bound and he helps her to the toilet and in and out of bed. SHe i able to stand normally with assistance but was unable to at the zaki. Patient is now alert to self but does not remember what occured this afternoon. The majority of the history is obtained from the . Allergies Allergy/AdvReac Type Severity Reaction Status Date / Time dextromethorphan Allergy Severe nyquil -> Verified 08/13/25 19:06 Difficulty Breathing doxylamine Allergy Severe nyquil -> Verified 08/13/25 19:06 Difficulty Breathing pseudoephedrine Allergy Severe nyquil -> Verified 08/13/25 19:06 Difficulty Breathing glyburide Allergy Intermediate RASH - pt Verified 08/13/25 19:06 and denies tetanus toxoid, adsorbed Allergy Intermediate painful Verified 08/13/25 19:06 joints aspartame Allergy Incontinenc Verified 08/13/25 19:06 e phenylalanine Allergy Incontinenc Verified 08/13/25 19:06 e stevioside [From Stevia] Allergy Incontinenc Verified 08/13/25 19:06 e sucralose Allergy Incontinenc Verified 08/13/25 19:06 [From Splenda (sucralose)] e vasquez pepper AdvReac Gastrointestinal Verified 08/13/25 19:06 Upset black pepper AdvReac Gastrointestinal Verified 08/13/25 19:06 Upset Ethanol Allergy Severe nyquil -> Uncoded 08/13/25 19:06 Difficulty Breathing Home Medications Medication Instructions Recorded Confirmed Type blood-glucose meter (OneTouch #1 ea 03/20/22 08/13/25 Rx Ultra2 Meter kit) OneTouch Ultra Test (blood sugar #400 ea 10/17/22 08/13/25 Rx diagnostic) fluoxetine 20 mg capsule 20 mg PO BID 05/19/23 08/13/25 History folic acid 1 mg tablet 1 mg PO QAM 06/18/23 08/13/25 History melatonin 10 mg tablet 10 mg PO HS 06/18/23 08/13/25 History pen needle, diabetic 32 gauge x 06/19/23 08/13/25 History 5/32" (BD Cristy 2nd Gen Pen Needle) levothyroxine 125 mcg tablet 125 mcg PO DAILYBB 10/09/24 08/13/25 History lisinopril 5 mg tablet 5 mg PO QAM 10/09/24 08/13/25 History simvastatin 10 mg tablet 10 mg PO HS 10/09/24 08/13/25 History insulin aspart U-100 100 unit/mL See Rx Instructions .Route 12/19/24 08/13/25 Rx (3 mL) subcutaneous pen (Novolog .COMPLEX #30 mL FlexPen U-100 Insulin aspart) blood-glucose sensor (Dexcom G7 05/31/25 08/13/25 History Sensor device) apixaban 5 mg tablet (Eliquis) 5 mg PO BID 06/22/25 08/13/25 History aspirin 81 mg tablet,delayed 81 mg PO QAM 08/13/25 08/13/25 History release bisacodyl 10 mg rectal suppository 10 mg [place] Q OTHER DAY 08/13/25 08/13/25 History (Dulcolax (bisacodyl)) cholecalciferol (vitamin D3) 125 125 mcg PO DAILY 08/13/25 08/13/25 History mcg (5,000 unit) tablet (Vitamin D3) fenugreek seed 565 mg capsule 655 mg PO AMPM 08/13/25 08/13/25 History insulin glargine U-300 conc 300 62 unit subcut QAM 08/13/25 08/13/25 History unit/mL (3 mL) subcutaneous pen (Toujeo Max U-300 SoloStar) melatonin 10 mg tablet,extended 15 mg PO HS 08/13/25 08/13/25 History release polyethylene glycol 3350 17 8.5 g PO QDL 08/13/25 08/13/25 History gram/dose oral powder (Miralax) Past Med/Surg History Problem List Acute UTI (urinary tract infection) (Acute) Acute confusion (Acute) Stroke-like symptoms (Acute) Dementia Family history of clotting disorder Dyslipidemia Obesity History of embolic stroke Diabetes type 1, controlled Adjustment disorder with mixed anxiety and depressed mood HTN (hypertension) Hypothyroidism (Chronic) Medical History History of fibula fracture Surgical History H/O: hysterectomy S/P excision of lipoma (06/26/23) Right Upper Extremity Lipoma Excision Times 4; Left Lower Extremity Lipoma Excision Times 1(Bilateral) - Louis Silva, DO History of repair of rotator cuff bilateral H/O colonoscopy History of hysterectomy Non cancerous fibroid removal of 6 lbs History of cholecystectomy 1987 History of tonsillectomy Family History Grandmother (Maternal) Diabetes Mother , in early 90s Hypertension Heart disease Factor V Leiden Grandmother (Paternal) Diabetes Daughter Migraine headache Social History Smoking Status: Never smoker Age Started Using Tobacco: 20; Age Quit Using Tobacco: 23; Second Hand Exposure: No; Do You Dip or Chew Tobacco: No; Tobacco Cessation Education Requested by Patient: No Hx Alcohol Use: No Hx Substance Use: No Preferred Language: Maldivian Communication Ability: Effective Inbound Call Center Representative Required: No Beliefs That Will Affect Care: None marital status: Current Living Situation: Spouse current occupational status: retired 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 vitals as above, NAD Head: Normocephalic, Atraumatic Eyes: PERRL, conjunctivae normal, anicteric sclerae ENMT: external ear and nose normal, oropharynx normal Neck: trachea midline, no thyromegaly normal visual inspection Respiratory: normal respiratory effort, lungs clear to auscultation, no wheeze, rales, rhonchi. Cardiovascular: RRR, no murmur, no edema Vessels: no JVD or carotid bruit Chest: normal inspection of chest Abdomen: obese, normal bowel sounds, soft, nontender, no hepatosplenomegaly Musculoskeletal: left sided weakness on her upper and lower extremity. Skin: no rashes, warm and dry normal turgor Neurologic: PERRL, EOMI, accommodation nl, + R sided facial droop, no dysarthria Psychiatric: Alert only to self. Lymphatic: no cervical or axillary lymphadenopathy Results & Data Results & Data Vital Signs (Past 12 Hours) Vital Signs Temp Pulse Pulse Resp BP BP Pulse Ox 08/13/25 18:44 69 18 128/80 94 08/13/25 17:33 68 08/13/25 17:30 90 08/13/25 17:30 94 08/13/25 17:30 36.8 C 69 18 155/68 H 94 08/13/25 17:24 36.8 C 69 18 155/68 H 93 O2 Del Method O2 Flow Rate 08/13/25 18:44 Room Air 08/13/25 17:33 08/13/25 17:30 Room Air 08/13/25 17:30 Nasal Cannula 2 08/13/25 17:30 Nasal Cannula 2 08/13/25 17:24 Nasal Cannula 2 PG Care Time/CCT Total # of Minutes Spent Total Time Spent with Patient: Total time spent is greater than 50% in coordination of care (as documented) at patient's floor/unit and/or counseling patient: Coding Level of Care Code 87090 INT INP/OBS CARE 3/75MIN Diagnoses HTN (hypertension) I10 Stroke-like symptoms R29.90 Diabetes type 1, controlled E10.9 Hypothyroidism E03.9 Dyslipidemia E78.5
[2025-08-13] MEDS: SIMVASTATIN 10 MG TAB PO SCH (22:38)
[2025-08-13] MEDS: ATORVASTATIN 40 MG TAB PO SCH (22:40)
[2025-08-13] MEDS: INSULIN ASPART PER UNIT CHARGE SC SCH (22:52)
[2025-08-13] MEDS: APIXABAN 5 MG TABLET PO SCH (23:10)
--- NOTE | 2025-08-14 00:08 | Magnetic Resonance Report ---
Exam(s): MRI HEAD Without Contrast EXAM: MR Head Without Intravenous Contrast CLINICAL HISTORY: Reason for exam: aphasia. TECHNIQUE: Magnetic resonance images of the head/brain without intravenous contrast in multiple planes. COMPARISON: Prior head CT from August 13, 2025 and brain MRI from October 15, 2024. FINDINGS: Brain: There is a remote ischemic injury of the left obdulio. There is a remote ischemic injury of the bilateral capsules. Moderate nonspecific white matter changes. The flow voids at the base the brain are intact. No mass. No hemorrhage. No acute infarct. 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 Ventricles: Moderate ventriculomegaly. Bones/joints: Unremarkable. No acute fracture. Sinuses: Chronic ethmoid sinusitis.. No acute sinusitis. Mastoid air cells: There is a small amount of fluid in the mastoid air size. No mastoid effusion. Orbits: Unremarkable as visualized. IMPRESSION: No evidence of acute intracranial pathology. Electronically signed by: Bryanna Rivera MD 08/14/25 00:07 AM
[2025-08-14] MEDS: MELATONIN 3 MG TAB PO SCH (00:18)
[2025-08-14] MEDS: INSULIN ASPART PER UNIT CHARGE SC ONE (04:35)
[2025-08-14] MEDS: LEVOTHYROXINE SODIUM 125 MCG TABLET PO SCH (06:08)
[2025-08-14 07:49] LABS: Hematocrit (blood only) 40.1 % (37.0-47.0); Hemoglobin 13.4 g/dL (12.0-16.0); Immature Granulocytes # (auto) 0.04 K/uL (0.01-0.20); Immature Granulocytes % (auto) 0.3 %; Mean Corpuscular Hemoglobin 29.1 pg (25.0-34.0); Mean Corpuscular Volume 87.0 fL (80.0-100.0); Platelet Count 405 K/uL (130-400); RDW Standard Deviation 49.6 fL (36.4-46.3); Red Blood Count 4.61 M/uL (4.20-5.40); White Blood Count 11.48 K/ul (4.8-10.8)
[2025-08-14 08:02] LABS: Anion Gap 6.0 (3-11); Blood Urea Nitrogen 16.0 mg/dl (6-23); Calcium 9.3 mg/dl (8.6-10.3); Carbon Dioxide 25.0 mmol/L (21-32); Chloride 106.0 mmol/L (98-107); Cholesterol 130.0 mg/dl (0-200); Creatinine Clr Calc Pharmacy 106.2 ml/min; Glucose 68.0 mg/dl (70-99(Fasting)); HDL Cholesterol 49.0 mg/dl; Potassium 4.1 mmol/L (3.5-5.1); Sodium 137.0 mmol/L (136-145); Triglycerides 91.0 mg/dl (0-150)
[2025-08-14 08:23] VITALS: RESP 19; TEMP 98.1; O2SAT 95
[2025-08-14] MEDS ORDERED: LANTUS PER UNIT CHARGE SC SCH ×2 (09:00)
[2025-08-14] MEDS: FOLIC ACID 1 MG TAB PO SCH (09:22)
[2025-08-14] MEDS: ASPIRIN 81 MG ECTAB PO SCH (09:22)
[2025-08-14] MEDS: CHOLECALCIFEROL 125 MCG (5,000 UNITS) TAB PO SCH (09:23)
[2025-08-14] MEDS: LANTUS PER UNIT CHARGE SC SCH (09:23)
--- NOTE | 2025-08-14 09:59 | Electrocardiogram Report ---
Test Reason : Blood Pressure : */* mmHG Vent. Rate : 63 BPM Atrial Rate : 63 BPM P-R Int : 178 ms QRS Dur : 88 ms QT Int : 436 ms P-R-T Axes : 59 45 47 degrees QTcB Int : 446 ms Normal sinus rhythm Low voltage QRS Borderline ECG When compared with ECG of 03-Nov-2024 15:16, Vent. rate has decreased by 32 bpm Confirmed by Demetris Jiménez ([id number]) on 08/14/2025 9:59:16 AM Referred By: REFERRED SELF Confirmed By: Demetris Jiménez
[2025-08-14 10:05] LABS: Hemoglobin A1C 6.0 % (4.5-5.6)
[2025-08-14 11:24] VITALS: BP 125/62
--- NOTE | 2025-08-14 12:08 | Pharmacy Report ---
Pharmacy Glycemic Short Note 2 - Date of Service August 14, 2025 - Glycemic Short BSG Results (Last 24 hours): 08/13/25 08/13/25 08/13/25 17:44 17:49 22:35 Glucose 131 H POC Glucose 160 H POC Glucose (other) 125 H 08/14/25 08/14/25 08/14/25 03:23 07:13 11:21 Glucose 68 L POC Glucose 84 75 129 H POC Glucose (other) OUTPATIENT ANTIDIABETIC REGIMEN: * Toujeo (insulin glargine) 62 units QAM * Novolog sliding scale up to 65 units TDD * HbA1c: 5.9% (05/31/2025) ASSESSMENT: * Mirna is a 70 year old female with T1DM who presented 08/13 with stroke-like symptoms and confusion * Patient last received 62 units of Toujeo 08/13 AM per med rec * AM glucose 08/14 was 75 (68 on AM labs) * Gave 35 units of insulin glargine this AM (almost half of home glargine dose) * Touejo to Lantus 20% decrease which is around 50 units * Decreased another 25% for unknown amount that patient will eat, differences in diet, slightly low AM glucose today * Novolog sliding scale at meals * Patient received 3 units of insulin with breakfast, lunch glucose was 129 * Will tighten the sliding scale a bit to remain under control * T2DM diet PLAN FOR INPATIENT GLYCEMIC CONTROL: * Basal insulin * Lantus 35 units SQ QAM * Bolus insulin * NovoLog per scale ACHS or Q6hrs while NPO * Goal Range: Low 110 mg/dL - High 140 mg/dL * Correction Factor: 20 mg/dL/unit * Nutritional / Prandial insulin per carb ratio of 1 unit per 8 grams CHO consumed
[2025-08-14] MEDS: POLYETHYLENE (MIRALAX) 17 GM PACK PO SCH (12:23)
--- NOTE | 2025-08-14 12:51 | Pharmacy Report ---
- Date of Service August 14, 2025 - Pharmacy CVA/TIA Medication Review Medications to Prevent Stroke handout has been added to the patients discharge packet. Antiplatelet(s) * aspirin 81mg daily Cholesterol * High intensity statin: atorvastatin 40 mg daily DVT Prophylaxis * SCD knee + apixaban 5mg po BID Therapeutic Anticoagulation * apixaban 5mg po BID for history of embolic stroke from COVID Type 2 Diabetes * Patient does not have T2DM (has T1DM per diabetes visit)
[2025-08-14] MEDS ORDERED: STROKE PATIENT DISCHARGE STA (15:19)
--- NOTE | 2025-08-14 15:24 | Discharge Summary ---
Discharge Summary Date of Service August 14, 2025 Principal Dx & Hospital Course #1 = Principal Diagnosis (1) HTN (hypertension): (2) Stroke-like symptoms: (3) Diabetes type 1, controlled: (4) Hypothyroidism: (5) Dyslipidemia: Plan Stroke like symptoms in a 70 yo female with altered mental status and history of previous strokes. She had history of neurological events with a stroke causing left sided weakness. Will complete neurological workup. Will place on statin. and aspirin. Already on ELiquis. Patient did have leukocytosis but this coud be reactive to a possible stroke or TIA. UA was positive but at this point will not treat and call this asymptomatic bacteruria. repots no change in urinary habits at this time. #T1DM consult glycemic control placed on short acting insulin #Hyponatremia - chronic Na 134 #Mild Dementia -at baseline, with some confusion. 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 Patient was her normal state of health when around 3pm she was found slouched over on her wheel chair. She then had difficulty speaking. Patient is normally conversant with her ex who is her patient care provider. She is essentially wheel chair bound and he helps her to the toilet and in and out of bed. SHe i able to stand normally with assistance but was unable to at the zaki. Patient is now alert to self but does not remember what occured this afternoon. The majority of the history is obtained from the . Discharge Plan Discharge Items Patient Disposition: Home - Self-Care Reason For Visit: APHASIA Discharge Diagnosis: Aphasia Condition on Discharge: Fair Activity: Resume your previous activity Non-emergency contact: Primary Care Provider Call non-emergency contact if: you have any medication questions Follow-up/Referrals: Oswaldo Saxena MD [Primary Care Provider] - Addtl Attending Provider Instructions: Recommend a close followup with PCP in 1-2 weeks. Recommend Neurology followup wither with CLARISSA or Dr. Zambrano in 2-3 weeks. Pending Studies at Discharge: Yes Stand-Alone Forms: My [employer], Smoking Cessation, Medications to Prevent Stroke Medications and DC Order Prescriptions: Continued (DME) blood-glucose meter [OneTouch Ultra2 Meter] Kit See Rx Instructions .Route Qty: 1 0RF Rx Instructions: Test blood sugars 4 times a day (DME) OneTouch Ultra Test Strip See Rx Instructions .Route Qty: 400 3RF Rx Instructions: Test four times daily insulin aspart U-100 [Novolog FlexPen U-100 Insulin] 100 unit/mL (3 mL) insulin pen See Rx Instructions .ROUTE .COMPLEX Qty: 30 5RF Hold Instructions: Resume on 11/13/24. review w/ physician on discharge from rehab Rx Instructions: Inject per sliding scale up to 65 units daily; GIVE 30 MINUTES BEFORE SUPPER fluoxetine 20 mg capsule 20 mg PO BID (DME) pen needle, diabetic [BD Cristy 2nd Gen Pen Needle] 32 gauge x 5/32" needle See Rx Instructions miscellaneous .MEDSUPPLY Rx Instructions: inject with a new pen needle 3x a day Eliquis 5 mg tablet 5 mg PO BID (DME) Dexcom G7 Sensor Device See Rx Instructions .Route Rx Instructions: As directed melatonin 10 mg Tablet 10 mg PO HS folic acid 1 mg tablet 1 mg PO QAM levothyroxine 125 mcg tablet 125 mcg PO DAILYBB lisinopril 5 mg tablet 5 mg PO QAM simvastatin 10 mg tablet 10 mg PO HS melatonin 10 mg Tablet Extended Release 15 mg PO HS insulin glargine U-300 conc [Toujeo Max U-300 SoloStar] 300 unit/mL (3 mL) insulin pen 62 unit subcut QAM cholecalciferol (vitamin D3) [Vitamin D3] 125 mcg (5,000 unit) Tablet 125 mcg PO DAILY bisacodyl [Dulcolax (bisacodyl)] 10 mg Suppository 10 mg [place] Q OTHER DAY polyethylene glycol 3350 [Miralax] 17 gram/dose Powder 8.5 g PO QDL fenugreek seed 565 mg Capsule 655 mg PO AMPM Discontinued aspirin [Aspirin Low-Strength] 81 mg Tablet,Delayed Release (Dr/Ec) 81 mg PO QAM Discharge Orders: Discharge Order (Routine); Ordered 08/14/25 Ordered By: Aaron Rowell/Other Patient Handouts: Managing Type 1 Diabetes Admission Data Admit Date/Time: 08/13/25 19:29 Attending Provider: Aaron Larios Admit Provider: Aaron Larios Primary Care Provider: Oswaldo Saxena Other Providers: Aaron Larios Hospital Stay Data Consultations 08/13/25 19:25 ED Decision to Admit Stat Diagnostic Imagining Performed 08/13/25 17:19 CT head/brain wo con Stat CTA head w con [CT angio head w con] Stat CTA neck with con [CT angio neck with con] Stat 08/13/25 19:32 MRI Brain [MR brain wo con] Urgent Pending Results Patient Have Any Pending Studies at Discharge: Yes Discharge Instructions Given to Patient (Per Discharging Provider) Recommend a close followup with PCP in 1-2 weeks. Recommend Neurology followup wither with CLARISSA or Dr. Zambrano in 2-3 weeks. Coding Diagnoses HTN (hypertension) I10 Stroke-like symptoms R29.90 Diabetes type 1, controlled E10.9 Hypothyroidism E03.9 Dyslipidemia E78.5
[2025-08-14] MEDS: INFLUENZA VACC TS2025-26(65y+)/PF (IIV3) 0.5mL Syr IM ONE (16:43)
[2025-08-14] MEDS: PNEUMOCOCCAL VACCINE (PCV20) 20-VAL CONJ-DIP CRM/PF 0.5 ML SYR IM ONE (16:44)
[2025-08-14 17:09] VITALS: PULSE 78
== END 2025-08-14 17:46 | disposition home or self-care (01) | DRG 92 ==
LOC: ED 17:21 → 2E 19:29 → INTOOBSV 19:29 → 2E 20:54